=== PATIENT | male | born 1940 | race Caucasian/White ===

== ENCOUNTER 2020-04-28 13:05 | Outpatient (REF) | payer MEDICARE, SELFPAY ==
--- NOTE | 2020-04-28 13:24 | US_ITS ---
EXAMINATION: US SOFT TISSUE HEAD AND NECK CLINICAL INFORMATION: Swelling of the right side of the face. As per patient, swelling began this morning. COMPARISON: None TECHNIQUE: Real-time scanning of the area of clinical concern over the right mandibular region was performed utilizing high-resolution linear transducer. Comparison scanning of the left side was performed as well. FINDINGS: Swelling of the subcutaneous tissue over the right mandibular region is noted with increased echogenicity in the region compared to the contralateral side. No significant increased vascularity is seen. There is no evidence of focal fluid collection or discrete mass in the region. A small sonographically normal-appearing lymph node is noted in the submandibular region. IMPRESSION: Corresponding to the area of clinical concern over the right mandibular region asymmetrical subcutaneous soft tissue swelling/thickening is noted without associated focal fluid collection or increased vascularity. The finding is of unclear etiology. Recommend close clinical followup. If clinically deemed necessary further evaluation with contrast-enhanced cross-sectional imaging such as MRI and/or CT scan may be considered.
== END 2020-04-28 13:06 | disposition home or self-care (01) ==
LOC: HO.HMGCX 13:05
PROVIDERS: PCP Physician Assistant; Visit Provider Nurse Practitioner Family
DX: R22.0 Localized swelling, mass and lump, head (principal)
CPT/HCPCS: 76536

== ENCOUNTER 2020-05-19 08:16 | Outpatient (REF) | payer MEDICARE, SELFPAY ==
[2020-05-19 10:36] LABS: Glucose Urine UA NEG (NEG); Leukocyte Esterase Urine NEG (NEG); Nitrite Urine NEG (NEG); PH 6.5 (5.0-8.0); Urine Blood TRACE (NEG); Urine Ketones 15 MG/DL (NEG); Urine Protein NEG (NEG-TRACE)
[2020-05-19 10:42] LABS: Appearance Urine CLEAR; Color Urine YELLOW
[2020-05-19 10:54] LABS: Mucus Urine TRACE /LPF; RBC Urine 0-2 /HPF (0); Squamous Epithelial Cell Urine TRACE /LPF; WBC Urine 0 /HPF (0-4)
== END 2020-05-19 08:17 | disposition home or self-care (01) ==
LOC: HO.LAB 08:16
PROVIDERS: PCP Physician Assistant; Visit Provider Physician Assistant
DX: R30.0 Dysuria (principal)
CPT/HCPCS: 81001

== ENCOUNTER 2020-07-06 06:55 | Outpatient (REF) | payer MEDICARE, SELFPAY ==
[2020-07-06 07:43] LABS: Glucose Urine UA NEG (NEG); Leukocyte Esterase Urine NEG (NEG); Nitrite Urine NEG (NEG); Specific Gravity - Urine 1.015 (1.005-1.025); Urine Blood TRACE (NEG); Urine Ketones NEG (NEG); Urine Protein NEG (NEG-TRACE)
[2020-07-06 07:44] LABS: Hematocrit 37.5 % (42-52); Hemoglobin 12.6 g/dl (14.0-18.0); Mean Corpuscular HGB Conc 33.6 g/dl (31.0-36.0); Mean Corpuscular Hemoglobin 34.1 pg (27.0-33.0); Mean Corpuscular Volume 101.6 fL (80-98); Mean Platelet Volume 10.5 fL (9.4-12.4); Platelet Count 325 X10*3/uL (160-400); Red Blood Count 3.69 X10*6/uL (4.60-5.80); Red Cell Distribution Width 12.6 % (11.0-16.0); White Blood Count 5.5 X10*3/uL (4.8-10.8)
[2020-07-06 07:46] LABS: Appearance Urine CLEAR; Color Urine YELLOW
[2020-07-06 08:05] LABS: Anion Gap 13 (12-20); Blood Urea Nitrogen 10 mg/dL (9-16); Calcium 8.9 mg/dL (8.4-10.2); Carbon Dioxide 29 mmol/L (22-29); Chloride 101 mmol/L (96-108); Estimated Glomerular Filt Rate > 60; Glucose Random 76 mg/dL (60-115); Potassium 4.3 mmol/l (3.3-5.1); Sodium 139 mmol/L (135-145)
[2020-07-06 08:10] LABS: Squamous Epithelial Cell Urine TRACE /LPF
== END 2020-07-06 06:56 | disposition home or self-care (01) ==
LOC: HO.LAB 06:55
PROVIDERS: Visit Provider Physician Assistant
DX: E87.1 Hypo-osmolality and hyponatremia (principal); I10 Essential (primary) hypertension; R30.0 Dysuria
CPT/HCPCS: 36415; 80048; 81001; 85027

== ENCOUNTER 2021-01-03 06:56 | Outpatient (REF) | payer MEDICARE, SELFPAY ==
[2021-01-03 07:44] LABS: Hematocrit 33.6 % (42-52); Hemoglobin 11.1 g/dl (14.0-18.0); Immature Retic Fraction 18.7 % (2.3-13.4); Mean Corpuscular Hemoglobin 30.6 pg (27.0-33.0); Mean Corpuscular Volume 92.6 fL (80-98); Mean Platelet Volume 10.1 fL (9.4-12.4); Platelet Count 434 X10*3/uL (160-400); Red Blood Count 3.63 X10*6/uL (4.60-5.80); Red Cell Distribution Width 13.5 % (11.0-16.0); Retic HGB Equivalent 31.6 pg (30.0-35.0); Reticulocyte Percent 1.9 % (0.5-1.8); White Blood Count 4.6 X10*3/uL (4.8-10.8)
[2021-01-03 07:53] LABS: Anion Gap 12 (12-20); Blood Urea Nitrogen 10 mg/dL (9-16); Calcium 9.3 mg/dL (8.4-10.2); Carbon Dioxide 27 mmol/L (22-29); Chloride 102 mmol/L (96-108); Estimated Glomerular Filt Rate > 60; Glucose Random 87 mg/dL (60-115); Potassium 4.8 mmol/L (3.3-5.1); Sodium 136 mmol/L (135-145)
[2021-01-03 09:25] LABS: Folate 4.9 ng/mL (> or = 4.0); Vitamin B12 803 pg/mL (200-900)
[2021-01-03 09:27] LABS: Glucose Urine UA NEG (NEG); Leukocyte Esterase Urine NEG (NEG); Nitrite Urine NEG (NEG); Urine Blood NEG (NEG); Urine Ketones NEG (NEG); Urine Protein NEG (NEG-TRACE)
[2021-01-03 09:28] LABS: Appearance Urine CLEAR; Color Urine STRAW
== END 2021-01-03 06:57 | disposition home or self-care (01) ==
LOC: HO.LAB 06:56
PROVIDERS: PCP Physician Assistant; Visit Provider Physician Assistant
DX: R30.0 Dysuria (principal); D64.9 Anemia, unspecified; I10 Essential (primary) hypertension
CPT/HCPCS: 36415; 80048; 81003; 82607; 82746; 85027; 85045

== ENCOUNTER 2021-02-15 07:34 | Outpatient (REF) | payer MEDICARE, SELFPAY ==
[2021-02-15 08:04] LABS: MANUAL DIFF FLAG NO
[2021-02-15 08:11] LABS: Basophils Absolute Auto 0.1 X10*3/uL (0.0-0.2); Basophils Percent Auto 0.8 % (0-2); Eosinophils Absolute Auto 0.1 X10*3/uL (0.0-0.4); Eosinophils Percent Auto 0.8 % (0-4); Hemoglobin 8.9 g/dl (14.0-18.0); Imm Gran Abs Auto 0.03 X10*3/uL (0.00-0.03); Imm Gran Pct Auto 0.5 % (0.0-0.4); Lymphocytes Percent Auto 15.5 % (20-40); Mean Corpuscular Hemoglobin 28.4 pg (27.0-33.0); Mean Corpuscular Volume 86.3 fL (80-98); Mean Platelet Volume 9.9 fL (9.4-12.4); Monocytes Absolute Auto 0.6 X10*3/uL (0.1-1.2); Monocytes Percent Auto 8.3 % (2-11); Neutrophils Absolute Auto 4.9 X10*3/uL (2.0-8.3); Neutrophils Percent Auto 74.1 % (45-73); Platelet Count 363 X10*3/uL (160-400); Red Blood Count 3.13 X10*6/uL (4.60-5.80); Red Cell Distribution Width 14.6 % (11.0-16.0); White Blood Count 6.6 X10*3/uL (4.8-10.8)
[2021-02-15 08:40] LABS: Alanine Aminotransferase 8 U/L (0-40); Albumin Level 4.2 g/dL (3.5-5.0); Alkaline Phosphatase 65 U/L (39-117); Anion Gap 14 (12-20); Aspartate Amino Transferase 16 U/L (5-37); Bilirubin Total 0.6 mg/dL (0.0-1.0); Blood Urea Nitrogen 11 mg/dL (9-16); Calcium 9.2 mg/dL (8.4-10.2); Carbon Dioxide 23 mmol/L (22-29); Chloride 101 mmol/L (96-108); Cholesterol 171 mg/dL; Estimated Glomerular Filt Rate > 60; Glucose Fasting 87 mg/dL (60-99); HDL Cholesterol 77 mg/dL; Iron 18 mcg/dL (45-160); LDL Cholesterol Calculated 72 mg/dl; Potassium 4.2 mmol/L (3.3-5.1); Sodium 134 mmol/L (135-145); Total Protein 6.8 g/dL (6.5-8.0); Triglycerides 113 mg/dL
[2021-02-15 08:58] LABS: Percent Iron Saturation 4 % (15-50); Total Iron Binding Capacity 441 mcg/dL (228-428); Unsaturated Iron Binding 423 ug/dL
[2021-02-15 09:02] LABS: TSH reflex Free T4 1.88 uIU/mL (0.32-4.0); Vitamin D 25-OH Total 8.9 ng/mL (>30)
[2021-02-15 09:22] LABS: Creatinine Urine 35.71 mg/dL; Microalbumin Urine < 5.0 mg/L
[2021-02-15 09:24] LABS: Folate 10.5 ng/mL (> or = 4.0); Vitamin B12 1935 pg/mL (200-900)
== END 2021-02-15 07:35 | disposition home or self-care (01) ==
LOC: HO.LAB 07:34
PROVIDERS: PCP Physician Assistant; Visit Provider Nurse Practitioner Family
DX: I10 Essential (primary) hypertension (principal); D50.9 Iron deficiency anemia, unspecified
CPT/HCPCS: 36415; 80053; 80061; 82043; 82306; 82607; 82746; 83540; 84443; 85025

== ENCOUNTER 2021-03-02 06:35 | Outpatient (REF) | payer MEDICARE, SELFPAY ==
[2021-03-02 07:06] LABS: MANUAL DIFF FLAG NO
[2021-03-02 07:15] LABS: Basophils Percent Auto 0.7 % (0-2); Eosinophils Absolute Auto 0.1 X10*3/uL (0.0-0.4); Eosinophils Percent Auto 1.5 % (0-4); Hematocrit 24.7 % (42-52); Imm Gran Abs Auto 0.04 X10*3/uL (0.00-0.03); Imm Gran Pct Auto 0.7 % (0.0-0.4); Lymphocytes Absolute Auto 1.5 X10*3/uL (1.2-4.9); Lymphocytes Percent Auto 25.2 % (20-40); Mean Corpuscular HGB Conc 32.4 g/dl (31.0-36.0); Mean Corpuscular Hemoglobin 27.9 pg (27.0-33.0); Mean Corpuscular Volume 86.1 fL (80-98); Mean Platelet Volume 9.4 fL (9.4-12.4); Monocytes Absolute Auto 0.6 X10*3/uL (0.1-1.2); Monocytes Percent Auto 10.6 % (2-11); Neutrophils Absolute Auto 3.6 X10*3/uL (2.0-8.3); Neutrophils Percent Auto 61.3 % (45-73); Platelet Count 530 X10*3/uL (160-400); Red Blood Count 2.87 X10*6/uL (4.60-5.80); Red Cell Distribution Width 15.5 % (11.0-16.0); White Blood Count 5.9 X10*3/uL (4.8-10.8)
== END 2021-03-02 06:36 | disposition home or self-care (01) ==
LOC: HO.LAB 06:35
PROVIDERS: PCP Physician Assistant; Visit Provider Nurse Practitioner Family
DX: D64.9 Anemia, unspecified (principal)
CPT/HCPCS: 36415; 85025

== ENCOUNTER → 2021-03-03 10:47 | Outpatient (BNV) | payer MEDICARE, SELFPAY | PROVIDERS: PCP Physician Assistant; Referring Provider Nurse Practitioner Family; Visit Provider Internal Medicine | DX: C64.9 Malignant neoplasm of unspecified kidney, except renal pelvis (principal) | CPT/HCPCS: 99203; 99213; 99214; G2211 ==

== ENCOUNTER 2021-03-23 06:48 | Outpatient (REF) | payer MEDICARE, SELFPAY ==
[2021-03-23 07:18] LABS: Hematocrit 30.7 % (42-52); Hemoglobin 9.9 g/dl (14.0-18.0); Mean Corpuscular HGB Conc 32.2 g/dl (31.0-36.0); Mean Corpuscular Hemoglobin 30.2 pg (27.0-33.0); Mean Corpuscular Volume 93.6 fL (80-98); Mean Platelet Volume 9.6 fL (9.4-12.4); Platelet Count 348 X10*3/uL (160-400); Red Blood Count 3.28 X10*6/uL (4.60-5.80); Red Cell Distribution Width 22.4 % (11.0-16.0); White Blood Count 4.5 X10*3/uL (4.8-10.8)
[2021-03-23 07:45] LABS: Hemoglobin A1c % < 4.0 %
[2021-03-23 07:48] LABS: Anion Gap 18 (12-20); Blood Urea Nitrogen 8 mg/dL (9-16); Calcium 9.6 mg/dL (8.4-10.2); Carbon Dioxide 24 mmol/L (22-29); Chloride 100 mmol/L (96-108); Estimated Glomerular Filt Rate > 60; Glucose Random 85 mg/dL (60-115); Iron 37 mcg/dL (45-160); Percent Iron Saturation 9 % (15-50); Potassium 4.7 mmol/L (3.3-5.1); Sodium 137 mmol/L (135-145); Total Iron Binding Capacity 397 mcg/dL (228-428); Unsaturated Iron Binding 360 ug/dL
[2021-03-23 08:15] LABS: Prostate Specific Antigen Scr 1.87 ng/mL (<0.05-4.0)
== END 2021-03-23 06:49 | disposition home or self-care (01) ==
LOC: HO.LAB 06:48
PROVIDERS: PCP Physician Assistant; Visit Provider Physician Assistant
DX: Z12.5 Encounter for screening for malignant neoplasm of prostate (principal); Z13.1 Encounter for screening for diabetes mellitus; D50.0 Iron deficiency anemia secondary to blood loss (chronic); I10 Essential (primary) hypertension
CPT/HCPCS: 36415; 80048; 83036; 83540; 84153; 85027

== ENCOUNTER 2021-04-12 07:46 | Day surgery (SDC) | payer MEDICARE, SELFPAY ==
[2021-04-07 11:09] VITALS: BMI 18.4
--- NOTE | 2021-04-11 08:15 | HO.ANESPROP2 ---
Documented by User: Elisha Castillo NP 04/11/21 08:17 HPI - Anesthesia Eval Consult details Narrative: 80yo M for Upper Endoscopy and Colonoscopy [facility] Active Problems Active Problems: All Active Problems (Updated 04/07/21 @ 10:56 by Jenna Maurice RN) Scrotal itching (Acute) Facial swelling (Acute) Swelling of mandible (Acute) Tinea pedis, recurrent (Acute) Tinea corporis (Acute) Balanitis (Acute) Dysuria (Acute) HTN (hypertension) (Acute) Hyponatremia (Acute) Constipation (Acute) Erectile dysfunction (Acute) Anemia (Acute) Rectal bleeding (Acute) Fatigue (Acute) Low vitamin D level (Acute) Melena (Acute) Screening for diabetes mellitus (DM) (Acute) Nocturia (Acute) Past Medical History Medical History (Updated 04/07/21 @ 10:56 by Jenna Maurice RN) Anemia HTN (hypertension) Hyperlipidemia Family History Family History Father No problems noted. Mother No problems noted. Brother Cardiovascular disease Diabetes Surgical History Surgical History (Updated 04/07/21 @ 11:00 by Jenna Maurice RN) H/O colonoscopy History of left inguinal hernia repair (~02/2018) Hx of eye surgery Social History Social History Housing: House Alcohol intake: current Alcohol intake frequency: a few times a week Patient Tobacco Use Status: Never used Tobacco e-Cigarette/Vaping Use: Never Used Second Hand Smoke Exposure: No Use of substances other than those prescribed or required for medical reasons: No Have you been hit, kicked, punched, or otherwise hurt by someone within the past year? If so, by whom?: No Are you DNR?: No Advance Directives: Yes Advance Directives Information Provided: Yes (as above noted) Advance Directives on File: Yes Advance Directives Date on File: 04/12/21 Recently lost weight without trying: No Eating poorly because of decreased appetite: No Nutrition Risks: No Nutritional Risk service: No Current occupational status: retired Meds Allergies Allergy/AdvReac Type Severity Reaction Status Date / Time hydrochlorothiazide AdvReac Dizziness/ Verified 03/14/21 09:31 hyponatremia lisinopril AdvReac Lip Verified 03/14/21 09:31 swelling. Exam Exam Date and Time: April 11, 2021 0815 Height,Weight and Vital Signs: Height 5 ft 6.5 in Weight 52.617 kg Pertinent Lab Results Pertinent Lab Results: Laboratory Tests 03/23/21 03/23/21 06:55 06:55 WBC 4.5 L Hgb 9.9 L D Hct 30.7 L D Plt Count 348 D Sodium 137 Potassium 4.7 Chloride 100 Carbon Dioxide 24 BUN 8 L Creatinine 0.85 Assessment and Plan Assessment Anesthesia Assessment: Chart Reviewed Documented by User: Thaddeus Almaraz MD 04/12/21 08:24 [facility] Past Medical History Medical History (Updated 04/07/21 @ 10:56 by Jenna Maurice RN) Anemia HTN (hypertension) Hyperlipidemia Family History Family History Father No problems noted. Mother No problems noted. Brother Cardiovascular disease Diabetes Family history of problems with anesthesia: No Surgical History Surgical History (Updated 04/07/21 @ 11:00 by Jenna Maurice RN) H/O colonoscopy History of left inguinal hernia repair (~02/2018) Hx of eye surgery History of Problems with Anesthesia: No Social History Social History Housing: House Alcohol intake: current Alcohol intake frequency: a few times a week Patient Tobacco Use Status: Never used Tobacco e-Cigarette/Vaping Use: Never Used Second Hand Smoke Exposure: No Use of substances other than those prescribed or required for medical reasons: No Have you been hit, kicked, punched, or otherwise hurt by someone within the past year? If so, by whom?: No Are you DNR?: No Advance Directives: Yes Advance Directives Information Provided: Yes (as above noted) Advance Directives on File: Yes Advance Directives Date on File: 04/12/21 Recently lost weight without trying: No Eating poorly because of decreased appetite: No Nutrition Risks: No Nutritional Risk service: No Current occupational status: retired Meds Allergies Allergy/AdvReac Type Severity Reaction Status Date / Time hydrochlorothiazide AdvReac Dizziness/ Verified 03/14/21 09:31 hyponatremia lisinopril AdvReac Lip Verified 03/14/21 09:31 swelling. Exam Airway Mallampati Class: II TM Dist: >3cm Neck ROM: Full Loose/Missing/Broken Teeth: No Heart: [id number] Lungs: cta b/l Assessment and Plan Assessment Anesthesia Assessment: Anesthesia Plan Discussed Final Anesthetic Review Family History of Problems with Anesthesia: No History of Problems with Anesthesia: No NPO: Yes ASA Class: III Final Preanesthetic Review: No Changes in Pt Med Stat, Meds/Allgs Chart Reviewed, Consent Obtained/Reviewed and Anes Risks/Benef Reviewed Patient Risk: Intermediate Procedure Risk: Low Assessment/Block/Sedation in SS: Assess/Block/Sedation-SS Anesthetic Plan Anesthetic Plan: MAC: and Agree w/ Assess. and Plan Disposition: Standard PACU
[2021-04-12 08:07] VITALS: BP 163/83; PULSE 82; RESP 16; TEMP 36.4; O2SAT 100
[2021-04-12] MEDS: Lactated Ringers 1,000 ML 100 ML IVCONT (08:23)
--- NOTE | 2021-04-12 08:50 | MHC.SHP ---
Pre-Procedural Eval Section A Date of Service: 04/12/21 The patient is an INPATIENT: No Changes since office visit: No Cold of Flu in the past 2 weeks, No New Medical Problems, No Changes in Medication and No Patient answered all questions The History & Physical has been completed within 30 days and I have reviewed it.: Yes Section B Chief Complaint: anemia Allergies: Allergies Allergy/AdvReac Type Severity Reaction Status Date / Time hydrochlorothiazide AdvReac Dizziness/ Verified 03/14/21 09:31 hyponatremia lisinopril AdvReac Lip Verified 03/14/21 09:31 swelling. Plan I have reviewed the history and physical and performed a pertinent physical examination on my patient. No changes have occurred unless specified.
[2021-04-12 09:41] VITALS: BP 105/67; PULSE 92; RESP 16; TEMP 36.1; O2SAT 99
--- NOTE | 2021-04-12 09:46 | PM.OP ---
Brief Operative Note Date of Service: 04/12/21 Pre-op diagnosis: fe def anemia, rectal bleeding Post-op diagnosis: same (gastritis, duodenitis, cecal mass, diverticulosis) Procedure: egd,colon Surgeon: Husam Kong Anesthesia: MAC Was an Pig Machine Crane Operator used for this Procedure?: No Estimated blood loss (mL): 10 Pathology: other (bxs duodenum, antrum, egj, cecal mass) Condition: stable Disposition: PACU
[2021-04-12 09:56] VITALS: BP 115/70; PULSE 89; RESP 17; TEMP 36.1; O2SAT 100
--- NOTE | 2021-04-12 09:57 | OP_ITS ---
SURGEON: Husam Kong MD INDICATIONS: Iron-deficiency anemia and rectal bleeding. PREOPERATIVE DIAGNOSIS: POSTOPERATIVE DIAGNOSIS: PROCEDURE PERFORMED: 1. Upper endoscopy with biopsy. 2. Colonoscopy to the terminal ileum with biopsy and Natasha ink marking. ESTIMATED BLOOD LOSS: COMPLICATIONS: ANESTHESIA: ASSISTANTS: SPECIMENS: MEDICATIONS: Monitored anesthesia care. DESCRIPTION OF PROCEDURE: History and physical performed. The risks and benefits of the procedure were explained to the patient. Informed consent was obtained. The patient was placed in the left lateral decubitus position. The Olympus video gastroscope was introduced into the esophagus, stomach, and duodenum. Examination was performed and the scope was removed. He was repositioned for colonoscopy. Digital rectal exam was performed and did show anal stenosis. The Olympus pediatric video colonoscope was introduced into the rectum and advanced to the cecum without difficulty. The cecum was identified by transillumination, palpation, and identification of ileocecal valve. Examination was performed and the scope was removed. He tolerated the procedure well and was taken to recovery area in stable condition. FINDINGS: UPPER ENDOSCOPY: Esophagus: The esophagus showed some mild esophagitis right at the EG junction. Biopsies were obtained from the EG junction. Stomach: Stomach showed no evidence of masses, ulcers, or polyps. Antral biopsies were obtained as there did appear to be some mild gastritis involving the antrum. Duodenum: The bulb and second portion showed some slight flattening of the folds in the second portion of the duodenum. Biopsies were obtained to rule out celiac disease. COLONOSCOPY: The terminal ileum was normal. There was a mass at the cecum arising from the underside of the ileocecal valve. The mass measured approximately 4 x 6 cm and was ulcerated and friable; it had a hard feeling when biopsied. The mass appeared consistent with a carcinoma. Biopsies were obtained from the mass and a total of 4 mL of Natasha ink was injected in the vicinity of the mass for aiding in identification at the time of surgery. A single polyp near the mass measured approximately 6 mm and was not removed at the time of the procedure. There was moderate diverticulosis involving the sigmoid. Retroflexed examination showed internal hemorrhoids. IMPRESSION: 1. Gastritis. 2. Esophagitis. 3. Cecal mass. 4. Diverticulosis. RECOMMENDATIONS: 1. Follow up the biopsy results. 2. Referral for surgical evaluation. MD ЕЛЕНА Zamudio/JIAN / [id number] MTDD
== END 2021-04-12 10:54 | disposition home or self-care (01) ==
PROVIDERS: PCP Physician Assistant; Visit Provider Internal Medicine Gastroenterology
PROC: (CPT 45380; principal; 2021-04-12 09:00)
DX: D50.9 Iron deficiency anemia, unspecified (principal); K62.5 Hemorrhage of anus and rectum; C18.0 Malignant neoplasm of cecum; K57.30 Diverticulosis of large intestine without perforation or abscess without bleeding; K20.90 Esophagitis, unspecified without bleeding; K29.70 Gastritis, unspecified, without bleeding; I10 Essential (primary) hypertension; Z79.899 Other long term (current) drug therapy
CPT/HCPCS: 45380; 43239; 88305; 88341; 88342; J3010

== ENCOUNTER → 2021-04-15 14:11 | Outpatient (BNVA) | payer MEDICARE, SELFPAY | PROVIDERS: PCP Physician Assistant; Referring Provider Physician Assistant; Visit Provider Surgery | DX: K63.89 Other specified diseases of intestine (principal) | CPT/HCPCS: 99202 ==

== ENCOUNTER 2021-04-18 12:17 | Outpatient (REF) | payer MEDICARE, SELFPAY ==
[2021-04-18 14:16] LABS: Hematocrit 35.7 % (42-52); Hemoglobin 11.7 g/dl (14.0-18.0); Mean Corpuscular HGB Conc 32.8 g/dl (31.0-36.0); Mean Corpuscular Hemoglobin 31.5 pg (27.0-33.0); Platelet Count 392 X10*3/uL (160-400); Red Blood Count 3.72 X10*6/uL (4.60-5.80); Red Cell Distribution Width 19.6 % (11.0-16.0); White Blood Count 7.8 X10*3/uL (4.8-10.8)
[2021-04-18 14:37] LABS: Alanine Aminotransferase 17 U/L (0-40); Albumin Level 4.1 g/dL (3.5-5.0); Alkaline Phosphatase 69 U/L (39-117); Aspartate Amino Transferase 24 U/L (5-37); Blood Urea Nitrogen 11 mg/dL (9-16); Estimated Glomerular Filt Rate > 60; Total Protein 6.9 g/dL (6.5-8.0)
[2021-04-18 15:06] LABS: Bilirubin Direct < 0.2 mg/dL (0.0-0.5); Bilirubin Total < 0.2 mg/dL (0.0-1.0)
== END 2021-04-18 12:18 | disposition home or self-care (01) ==
LOC: HO.10HDL 12:17
PROVIDERS: Visit Provider Internal Medicine Gastroenterology
DX: R22.0 Localized swelling, mass and lump, head (principal)
CPT/HCPCS: 36415; 80076; 82378; 82565; 84520; 85027

== ENCOUNTER 2021-04-22 08:41 | Outpatient (REF) | payer MEDICARE, SELFPAY ==
--- NOTE | ~2021-04-22 | CT_ITS ---
EXAMINATION: CT CHEST WITH CONTRAST CLINICAL INFORMATION: Cecal mass. COMPARISON: Previous chest x-ray most recent July 2019. TECHNIQUE: Multidetector volumetric CT imaging of the chest was obtained after the administration of 85 mL of Omnipaque 350 intravenous contrast without immediate adverse reactions. Axial MIP volume rendering provided. Sagittal and coronal reformatted images were obtained. This CT examination was performed using dose optimization techniques as appropriate, variously including the following: *Automated exposure control *Adjustment of mA and/or kV according to patient size (this includes techniques or standardized protocols for targeted exams where dose is matched to indication/reason for exam; i.e. extremities or head) *Use of iterative reconstruction technique DLP: 119 mGy-cm. FINDINGS: LUNGS: There is biapical pleural thickening and calcification. There is a 4 mm peripheral or subpleural superior segment right lower lobe nodule axial image 219 series 7. There are additional smaller peripheral or subpleural nodules adjacent to the right lower lobe. These probably represent small subpleural lymph nodes. There is a 2 mm left upper lobe peripheral nodule axial image 137 series 7. There is a 2 mm central left upper lobe nodule axial image 220 series 7. There is a slight nodularity along the pleural fissures, particularly the left pleural fissure for example axial image 208 series 7. MEDIASTINUM: The heart does not appear enlarged. There is coronary artery calcification. There is no pericardial effusion. The thoracic aorta is upper normal in size. There are no enlarged hilar or mediastinal lymph nodes. The visualized thyroid gland is unremarkable. PLEURA: There is no pleural effusion. No pleural mass or thickening. AXILLA: No lymphadenopathy. OSSEOUS STRUCTURES: There are degenerative changes of the spine. CT/CT chest w con IMPRESSION: Small pulmonary nodules, the majority probably representing subpleural lymph nodes. Coronary artery calcification. Upper normal-size thoracic aorta.
--- NOTE | ~2021-04-22 | CT_ITS ---
EXAMINATION: CT ABDOMEN AND PELVIS WITH CONTRAST CLINICAL INFORMATION: Cecal mass. COMPARISON: CTA of the abdomen and pelvis August 2011 TECHNIQUE: Multidetector volumetric images were obtained from the superior aspect of the liver through the pubic symphysis following administration 85 mL of Omnipaque 350 intravenous contrast. Sagittal and coronal reformatted images were obtained on the technologist's workstation. Oral contrast: Yes. This CT examination was performed using dose optimization techniques as appropriate, variously including the following: *Automated exposure control *Adjustment of mA and/or kV according to patient size (this includes techniques or standardized protocols for targeted exams where dose is matched to indication/reason for exam; i.e. extremities or head) *Use of iterative reconstruction technique DLP: 223 mGy-cm FINDINGS: LIVER, GALLBLADDER, AND BILIARY TREE: The liver is low in attenuation suggestive of fatty infiltration. No focal liver lesion is seen. The gallbladder is unremarkable with no evidence of radiopaque gallstones, gallbladder wall thickening, or obvious pericholecystic inflammatory changes. There is no biliary duct dilatation. PANCREAS: Unremarkable. SPLEEN: Unremarkable. ADRENAL GLANDS: Unremarkable. KIDNEYS AND URETERS: There are bilateral low-attenuation renal lesions consistent with simple cysts. The largest measure 1.8 cm in the lower pole of the right kidney and 1.3 cm in the peripelvic mid left kidney and lower pole. Kidneys are otherwise unremarkable. BLADDER: Unremarkable. GASTROINTESTINAL TRACT: There is a 4.6 x 3 x 5 cm soft tissue mass in the cecum suggestive of neoplasm. There are small surrounding pericolic lymph nodes. The largest measures 6 mm posterior to the cecum. There is no evidence of obstruction. The appendix is normal. There is diverticulosis of the colon. The stomach is not optimally distended. ABDOMINAL WALL: No significant hernia is appreciated. LYMPH NODES: There are no enlarged lymph nodes. There are small pericolic lymph nodes adjacent to the cecum, largest measuring 6 mm posterior to the cecum. There is no ascites. There is no evidence of peritoneal disease. VASCULAR: There is evidence of atherosclerotic disease. No aneurysm is seen. PELVIC VISCERA: The prostate gland is enlarged and protrudes into the base of the bladder. OSSEOUS STRUCTURES: There are degenerative changes of the spine. No fracture or suspicious bone lesion is seen. CT/CT abdomen pelvis w con IMPRESSION: Cecal mass suggestive of neoplasm. Small pericolic lymph nodes, largest measuring 6 mm posterior to the cecum. Diverticulosis of the colon. Fatty liver. Bilateral renal cysts. Enlarged prostate gland.
== END 2021-04-22 08:42 | disposition home or self-care (01) ==
LOC: HO.CT 08:41
PROVIDERS: Absent Provider Internal Medicine Gastroenterology; PCP Physician Assistant; Visit Provider Surgery
DX: K63.89 Other specified diseases of intestine (principal); R91.8 Other nonspecific abnormal finding of lung field
CPT/HCPCS: 71260; 74177; Q9967

== ENCOUNTER 2021-05-24 09:26 | Inpatient (IN) | payer MEDICARE, SELFPAY ==
[2021-05-16 11:32] VITALS: BP 170/86; PULSE 90; RESP 16
--- NOTE | 2021-05-16 12:13 | P.CONAN_ITS ---
Documented by User: Elisha Castillo NP 05/23/21 12:26 HPI - Anesthesia Eval Consult details Narrative: 80yo M for Right Hand Assisted Laparoscopic Colon Resection, Poss open Blood refusal d/t orthodox. (H&H low 04/18/21. Repeat preop to ensure stable.) s/p EGD and Rowe with MAC 04/12/21 0-2 Iain daily BP up at PAT. Pt with detailed home BP log all WNL and at surgical OV. Pt will continue to monitor at home and call if elevated. PMFSH Active Problems Active Problems: All Active Problems (Updated 05/16/21 @ 12:11 by Echo Neville, XANDER) Scrotal itching (Acute) Facial swelling (Acute) Swelling of mandible (Acute) Tinea pedis, recurrent (Acute) Tinea corporis (Acute) Balanitis (Acute) Dysuria (Acute) HTN (hypertension) (Acute) Hyponatremia (Acute) Constipation (Acute) Erectile dysfunction (Acute) Anemia (Acute) Rectal bleeding (Acute) Fatigue (Acute) Low vitamin D level (Acute) Melena (Acute) Screening for diabetes mellitus (DM) (Acute) Nocturia (Acute) Cecum mass (Acute) Anemia (Acute) External hemorrhoid (Acute) Past Medical History Medical History (Updated 05/16/21 @ 12:11 by Echo Neville RN) Anemia HTN (hypertension) Hyperlipidemia Family History Family History Father No problems noted. Mother No problems noted. Brother Cardiovascular disease Diabetes Family history of problems with anesthesia: No Surgical History Surgical History (Updated 05/16/21 @ 09:19 by Echo Neville RN) H/O colonoscopy History of left inguinal hernia repair (~02/2018) Hx of eye surgery History of Problems with Anesthesia: No Social History Social History (Updated 05/16/21 @ 09:21 by Echo Neville RN) Housing: House Are you a primary children's zoo caretaker to a significant other at home: No Do you presently have visiting nurse or other home services: No Alcohol intake: current Alcohol intake frequency: 0-2 drinks per day Alcohol type: wine Patient Tobacco Use Status: Never used Tobacco e-Cigarette/Vaping Use: Never Used Second Hand Smoke Exposure: No Use of substances other than those prescribed or required for medical reasons: No Advance Directives Date on File: 04/12/21 service: No Current occupational status: retired Meds Allergies Allergy/AdvReac Type Severity Reaction Status Date / Time hydrochlorothiazide AdvReac Severe Dizziness/ Verified 05/16/21 09:19 hyponatremia lisinopril AdvReac Severe Lip Verified 05/16/21 09:19 swelling. Exam Exam Date and Time: May 16, 2021 1213 Height,Weight and Vital Signs: Last Vital Signs Pulse 90 05/16/21 11:32 Resp 16 05/16/21 11:32 BP 170/86 H 05/16/21 11:32 Pertinent Lab Results Pertinent Lab Results: Laboratory Tests 03/23/21 04/18/21 04/18/21 06:55 12:20 12:20 WBC 7.8 Hgb 11.7 L Hct 35.7 L Plt Count 392 Sodium 137 Potassium 4.7 Chloride 100 Carbon Dioxide 24 BUN 11 Creatinine 0.80 Narrative Narrative: EKG 02/2021 NSR @ 90 Normal EKG ECHO 11/2017 LV systolic function is normal. EF 55-60%. No RWMA Grade 1 DD Mild calc of AV Mild MAC No obvious valvular pathology Airway Mallampati Class: I TM Dist: >3cm Neck ROM: Full Loose/Missing/Broken Teeth: Yes (Right lower broken. 1x pulled. Right lower implant.) Heart: RRR Lungs: CTAB Assessment and Plan Assessment Anesthesia Assessment: Anesthesia Plan Discussed and PAT Visit Final Anesthetic Review Family History of Problems with Anesthesia: No History of Problems with Anesthesia: No Documented by User: Mel Metzger MD 05/24/21 07:41 [facility] Past Medical History Medical History (Updated 05/16/21 @ 12:11 by Echo Neville RN) Anemia HTN (hypertension) Hyperlipidemia Family History Family History Father No problems noted. Mother No problems noted. Brother Cardiovascular disease Diabetes Surgical History Surgical History (Updated 05/16/21 @ 09:19 by Echo Neville, RN) H/O colonoscopy History of left inguinal hernia repair (~02/2018) Hx of eye surgery Social History Social History (Updated 05/16/21 @ 09:21 by Echo Neville, RN) Housing: House Are you a primary children's zoo caretaker to a significant other at home: No Do you presently have visiting nurse or other home services: No Alcohol intake: current Alcohol intake frequency: 0-2 drinks per day Alcohol type: wine Patient Tobacco Use Status: Never used Tobacco e-Cigarette/Vaping Use: Never Used Second Hand Smoke Exposure: No Use of substances other than those prescribed or required for medical reasons: No Advance Directives Date on File: 04/12/21 service: No Current occupational status: retired Meds Allergies Allergy/AdvReac Type Severity Reaction Status Date / Time hydrochlorothiazide AdvReac Severe Dizziness/ Verified 05/16/21 09:19 hyponatremia lisinopril AdvReac Severe Lip Verified 05/16/21 09:19 swelling. Exam Height,Weight and Vital Signs: Last Vital Signs Pulse 90 05/16/21 11:32 Resp 16 05/16/21 11:32 BP 170/86 H 05/16/21 11:32 Height 5 ft 6.5 in Weight 56.983 kg Vital Signs Temp Pulse Resp BP Pulse Ox 05/24/21 06:28 97.2 F 96 16 158/80 H 100 Pertinent Lab Results Pertinent Lab Results: Laboratory Tests 03/23/21 04/18/21 04/18/21 06:55 12:20 12:20 WBC 7.8 Hgb 11.7 L Hct 35.7 L Plt Count 392 Sodium 137 Potassium 4.7 Chloride 100 Carbon Dioxide 24 BUN 11 Creatinine 0.80 Lab Results 05/24/21 05/24/21 Range/Units 06:19 06:26 WBC 6.4 (4.8-10.8) X10*3/uL RBC 3.95 L (4.60-5.80) X10*6/uL Hgb 13.0 L (14.0-18.0) g/dl Hct 39.4 L (42.0-52.0) % MCV 99.7 H (80.0-98.0) fL MCH 32.9 (27.0-33.0) pg MCHC 33.0 (31.0-36.0) g/dl RDW 16.7 H (11.0-16.0) % Plt Count 333 (160-400) X10*3/uL MPV 9.8 (9.4-12.4) fL Absolute Nucleated RBC 0.000 (0.0-0.012) X10*3/uL Nucleated RBC % (auto) 0.0 (0.0-0.2) /100WBC COVID-19 (RADHA) Negative (Negative) COVID-19 Clin Com See Note Airway Mallampati Class: II Assessment and Plan Assessment Anesthesia Assessment: Chart Reviewed Final Anesthetic Review NPO: Yes ASA Class: II Final Preanesthetic Review: No Changes in Pt Med Stat, Meds/Allgs Chart Reviewed, Consent Obtained/Reviewed and Anes Risks/Benef Reviewed Patient Risk: Low Procedure Risk: Intermediate Assessment/Block/Sedation in SS: Assess/Block/Sedation-SS Anesthetic Plan Anesthetic Plan: GA Disposition: Standard PACU and Inp. Admit - Standard Bed
[2021-05-24] VITALS (20 sets, daily range): BP systolic 129–163; BP diastolic 65–88; PULSE 81–114; RESP 16–20; TEMP 35.9–36.9; O2SAT 96–100
--- NOTE | ~2021-05-24 | XR_ITS ---
EXAMINATION: XR CHEST CLINICAL INFORMATION: Fever COMPARISON: Previous chest CT April 2021 and chest x-ray July 2016 TECHNIQUE: 2 views of the chest were obtained. FINDINGS: The cardiac and mediastinal contours are stable. The lungs are clear. There is biapical pleural calcification. There are small bilateral pleural effusions. There is no pneumothorax. There are degenerative changes of the spine. XR/XR chest 2V IMPRESSION: Small bilateral pleural effusions. No evidence of pneumonia.
--- NOTE | ~2021-05-24 | XR_ITS ---
EXAMINATION: XR ABDOMEN KUB CLINICAL INDICATION: Postop ileus COMPARISON: None TECHNIQUE: Upright KUB FINDINGS: There are skin jovanni seen in the lower abdomen and pelvis. There are dilated loops of small bowel with air-fluid levels. Differential would include small bowel obstruction and ileus. No free air is seen. No calcifications are seen. Bony structures are unremarkable. XR/XR KUB IMPRESSION: Dilated small bowel with air-fluid levels. Differential would include small bowel obstruction and postoperative ileus.
[2021-05-24 06:39] LABS: Hematocrit 39.4 % (42.0-52.0); Mean Corpuscular Hemoglobin 32.9 pg (27.0-33.0); Mean Corpuscular Volume 99.7 fL (80.0-98.0); Mean Platelet Volume 9.8 fL (9.4-12.4); Platelet Count 333 X10*3/uL (160-400); Red Blood Count 3.95 X10*6/uL (4.60-5.80); Red Cell Distribution Width 16.7 % (11.0-16.0); White Blood Count 6.4 X10*3/uL (4.8-10.8)
[2021-05-24] MEDS: Lactated Ringers 1,000 ML 100 ML IVCONT (06:59)
[2021-05-24 07:00] LABS: COVID-19 Test Negative (Negative)
--- NOTE | 2021-05-24 07:19 | MHC.SHP ---
Pre-Procedural Eval Section A Date of Service: 05/24/21 Section B Chief Complaint: Cecum Mass Allergies: Allergies Allergy/AdvReac Type Severity Reaction Status Date / Time hydrochlorothiazide AdvReac Severe Dizziness/ Verified 05/16/21 09:19 hyponatremia lisinopril AdvReac Severe Lip Verified 05/16/21 09:19 swelling. Plan I have reviewed the history and physical and performed a pertinent physical examination on my patient. No changes have occurred unless specified.
--- NOTE | 2021-05-24 09:18 | P.OP_ITS ---
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 I scheduled him therefore for right colon resection. He understood the technique of hand assisted laparoscopic right colon resection. He was aware of the risks, benefits, and alternatives. He was brought to the operating room placed supine on the table under general anesthesia via endotracheal tube. A Bourne catheter was inserted. The abdomen is prepped and draped in usual sterile fashion. A surgical time-out was done. The patient received Cefotan 2 g IV preoperatively I made a short incision in the midline at the level of the umbilicus using blade 15. And this carried down through the full-thickness skin subcutaneous fat down to the fascia. The fascia was incised. The peritoneum was entered. Through this incision, an Henry wound retractor was position. We attached the GelPort to the wound retractor. We insufflated through a port through the GelPort to a pressure of 15 mm hg. A 30 degree 10 mm scope was placed through this port and with laparoscopic visualization, inserted a 5/12 mm port in the epigastric area below the costal margin. Another port was placed on the left upper quadrant through a small stab incision as well. I removed the port from the GelPort and placed the camera on the epigastric port. With laparoscopic visualization, I inserted my hand through the GelPort. The patient is placed in a [id number] position. I retracted the small bowel loops away from the right side and by doing so was able to clearly visualize the cecum which was also tattooed from the previous colonoscopy. I could feel the mass in the cecum. I follow the cecum distally to the flexure and the proximal transverse colon and I could see this clearly. I retracted the cecum in the right colon away from the retroperitoneum to expose the retroperitoneal attachments along the white line of Toldt. I divided this starting from the cecum using the LigaSure, going distally. We proceeded to then divide the hepatic colic ligaments at the hepatic flexure using the LigaSure as well. I continued to dissect this hepatic flexure off of the attachments to the liver using the LigaSure. I also detached the omentum from the proximal transverse colon using the LigaSure. I continued to then gently dissect the thin attachments on the retroperitoneum of the mesentery until was able to visualize the duodenum. This was therefore the limit of our medial dissection. I made sure that this duodenum was protected during the rest of the dissection of the mesentery of the right colon. I also freed up the ligamentous attachments along the cecum the using the LigaSure to make sure that we had adequate mobilization of the terminal ileum and the cecum. Once I felt that we had adequate mobilization of the entire right colon to the proximal transverse, I proceeded to then desufflate. I removed my hand from the GelPort and pulled up the entire right colon starting from the distal ileum all the way to the mid part of the transverse colon through the incision. I chose my point of dissection in the distal ileum at about 12 cm from the ileocecal valve. I created a mesenteric defect through this and divided this with a VIAJYA 60 mm stapler. I also chose my point of dissection in the proximal transverse colon and created a mesenteric window through this. I divided this using a VIJAYA 60 mm stapler as well. I identified the ileocolic pedicle. I marked the proximal part of the pedicle to create a high ligation of this with our mesenteric transection. I then proceeded to divide the mesenteric attachments of the terminal ileum using the LigaSure towards the marked area of the ileocolic pedicle. I alternated this with division of the mesentery attachments of the colon as well. I divided all the mesenteric attachments from both proximal distal until only the ileocolic pedicle was left. I defined the ileocolicpedicle by gently dissecting this with electrocautery. I then proceeded to apply and clamp across the ileocolic pedicle in a high ligation fashion. I divided this between clamps. The right colon specimen was sent for pathology I doubly ligated the stump of the ileocolic pedicle. I then proceeded to align the proximal distal stumps for a [id number] anastomosis. I noticed that there was 1 lymph node right near the staple line of the colon so I proceeded to transect more of the colon to include this lymph node and this was sent as an additional margin. I then proceeded to divide the apex of each staple line to enter the lumen. I positioned each arm of the VIJAYA 60 mm stapler through each lumen and aligned this at the anti mesenteric border. I made sure that there was no bowel loop or any mesentery within the staple line. Once this was confirmed, I fired the stapler to create our [id number] anastomosis. I completed the anastomosis by closing the enterotomy with a TA 60 mm stapler I then applied a seromuscular 3-0 Dexon stitch at the crotch of the staple line to release tension from the staple line itself I was able to palpate the lumen of the anastomosis and this was widely patent. I examined all staple lines and these appeared to be intact without any suggestion of any leak The limbs at the staple line both appeared to be well vascularized and not ischemic I replaced this back into the peritoneal cavity. I positioned the omentum to overlie the anastomotic site. I then we insufflated and applied the GelPort again. I examined la paroscopically through the epigastric port. I observed all 4 quadrants. There was no evidence of any other pathology nor any bowel injury. There was good hemostasis on the area of dissection. Once hemostasis was ensured, I proceeded to then close the fascia with a running Maxon 1 stitch. Once this was done, I proceeded then we examined the fascial closure laparoscopically from within the peritoneum and this appeared intact without any attach bowel loops or omentum I then proceeded to desufflate the remaining port sites and removed all ports. I irrigated the subcutaneous layer of all incisions. I closed the skin on all incisions with skin jovanni All skin incisions were also infiltrated with Marcaine 0.5% for postop analgesia. Dressings were applied and the procedure was completed The patient tolerated procedure well. There were no complication noted. Initial and final.counts of sponges and instruments were correct. Estimated blood loss was about 20 cc The patient is extubated without difficulty and transferred to the recovery room with stable vital signs.
--- NOTE | 2021-05-24 09:33 | PM.OP ---
Brief Operative Note Date of Service: 05/24/21 Pre-op diagnosis: cecal mass Post-op diagnosis: same Procedure: LESLEY right colectomy Surgeon: CARMELO WICK MD Anesthesia: GETA Was an Superintendent Stevedoring used for this Procedure?: Yes Superintendent Stevedoring: Tangela Geronimo Estimated blood loss (mL): 20 IV fluids (mL): 1,000 Urine output (mL): 400 Pathology: other (right colon) Condition: stable Disposition: PACU
[2021-05-24] MEDS: HYDROmorphone HCl 0.5 MG/0.5 ML SYRINGE 0.25 MG IVPUSH ×3 (10:00→11:54)
[2021-05-24] MEDS: oxyCODONE HCl Immed Release 5 MG TABLET PO (10:30)
[2021-05-24] MEDS: Lactated Ringers 1,000 ML 80 ML IVCONT (12:32)
[2021-05-24] MEDS: oxyCODONE HCl Immed Release 5 MG TABLET 10 MG PO ×2 (14:27→22:02)
--- NOTE | 2021-05-24 14:37 | PM.EVENT ---
Event Note Date of Service: 05/24/21 Event Note: Patient seen postop Underwent uneventful right colon resection earlier Looks comfortable Says he has adequate pain control at this time Abdomen soft Dressings dry Stable vital signs Good urine output Pain management Catina garcia
--- NOTE | 2021-05-24 14:48 | HO.POSTANES ---
Post Anesthesia Evaluation Post Anesthesia Evaluation Vital Signs: Vital Signs Temp Pulse Resp BP Pulse Ox 05/24/21 12:26 97.5 F 112 H 18 129/65 98 05/24/21 12:00 105 H 17 140/77 H 100 05/24/21 11:55 105 H 17 139/81 100 05/24/21 11:50 105 H 18 129/77 99 05/24/21 11:20 100 17 138/76 99 05/24/21 10:50 98.4 F 95 17 144/74 H 100 05/24/21 10:35 94 18 155/82 H 100 05/24/21 10:20 95 17 150/75 H 100 05/24/21 10:15 97 16 150/75 H 100 05/24/21 10:13 17 05/24/21 10:10 98 17 100 05/24/21 10:05 99 17 151/73 H 100 05/24/21 10:00 95 17 154/74 H 100 05/24/21 09:50 85 16 154/74 H 100 05/24/21 09:45 94 17 163/88 H 100 05/24/21 09:40 81 16 148/75 H 100 05/24/21 09:35 98.0 F 94 16 156/85 H 100 05/24/21 06:28 97.2 F 96 16 158/80 H 100 Anesthesia: Monitored Mental Status: Awake Pain Control: Satisfactory Nausea/Vomiting: None Hydration: Adequate Anesthesia-Related Issues: No Anes. Related Issues
[2021-05-24] MEDS: Morphine Sulfate 2 MG/ML CARTRIDGE 4 MG IVPUSH (19:16)
[2021-05-24] MEDS: 0.9 % Sodium Chloride Flush 3 ML SYRINGE IVFLUSH (19:17)
[2021-05-24] MEDS: Tamsulosin HCL 0.4 MG CAPSULE PO (19:17)
[2021-05-24] MEDS: Zolpidem Tartrate 5 MG TABLET PO (21:59)
[2021-05-25] VITALS (7 sets, daily range): BP systolic 150–184; BP diastolic 82–92; PULSE 91–110; RESP 17–18; TEMP 36.4–37.1; O2SAT 94–99
[2021-05-25] MEDS: Morphine Sulfate 2 MG/ML CARTRIDGE 4 MG IVPUSH ×3 (01:11→14:57)
[2021-05-25] MEDS: Lactated Ringers 1,000 ML 80 ML IVCONT ×3 (01:11→22:21)
[2021-05-25] MEDS: oxyCODONE HCl Immed Release 5 MG TABLET 10 MG PO ×2 (02:32→08:35)
[2021-05-25 05:54] LABS: MANUAL DIFF FLAG NO
[2021-05-25 05:59] LABS: Basophils Percent Auto 0.1 % (0-2); Hemoglobin 11.2 g/dl (14.0-18.0); Imm Gran Abs Auto 0.03 X10*3/uL (0.00-0.03); Imm Gran Pct Auto 0.3 % (0.0-0.4); Lymphocytes Absolute Auto 0.8 X10*3/uL (1.2-4.9); Lymphocytes Percent Auto 7.6 % (20-40); Mean Corpuscular HGB Conc 33.9 g/dl (31.0-36.0); Mean Corpuscular Hemoglobin 33.5 pg (27.0-33.0); Mean Corpuscular Volume 98.8 fL (80.0-98.0); Mean Platelet Volume 10.3 fL (9.4-12.4); Monocytes Percent Auto 9.8 % (2-11); Neutrophils Absolute Auto 8.5 x10*3/uL (2.0-8.3); Neutrophils Percent Auto 82.2 % (45-73); Platelet Count 283 X10*3/uL (160-400); Red Blood Count 3.34 X10*6/uL (4.60-5.80); Red Cell Distribution Width 16.7 % (11.0-16.0); White Blood Count 10.3 X10*3/uL (4.8-10.8)
[2021-05-25 06:23] LABS: Anion Gap 14 (12-20); Blood Urea Nitrogen 8 mg/dL (9-16); Calcium 8.5 mg/dL (8.4-10.2); Carbon Dioxide 25 mmol/L (22-29); Chloride 100 mmol/L (96-108); Creatinine Clr Calc Pharmacy 66.3; Estimated Glomerular Filt Rate > 60; Glucose Random 104 mg/dL (60-115); Potassium 4.2 mmol/L (3.3-5.1); Sodium 135 mmol/L (135-145)
--- NOTE | 2021-05-25 08:23 | P.PNGS_ITS ---
Subjective Subjective Date of Service: 05/25/21 Interval history: Had incisional pain periodically overnight Denies flatus Overall says he is doing okay Physical Exam Vital Signs: Vital Signs: Last Vital Signs Temp 97.6 F 05/25/21 07:11 Pulse 98 05/25/21 07:11 Resp 17 05/25/21 07:11 BP 168/92 H 05/25/21 07:11 Pulse Ox 99 05/25/21 07:11 Body Mass Index 20.0 Chemistry 05/25/21 05:19 Sodium 135 Potassium 4.2 Carbon Dioxide 25 BUN 8 L Creatinine 0.74 Calcium 8.5 D Hematology 05/24/21 05/25/21 06:26 05:19 WBC 6.4 10.3 Hgb 13.0 L 11.2 L Plt Count 333 283 Const: Other: Appears comfortable General: no acute distress Resp: Effort & Inspection: normal respiratory effort Cardio: Rhythm: regular rhythm GI: Other: Soft, dressings dry, no guarding rebound Procedures Date of Service Date of Service: 05/25/21 Progress Note: A&P Assessment and plan (1) Cecum mass: Status: Acute Assessment and Plan: Status post right colon resection Doing well postop Pain management Out of bed to chair today Plan to DC Bourne Await return of GI function - keep on clear liquids Incentive spirometry Labs okay Fall Risk Details Current Medications: Current Medications Amlodipine Besylate (Amlodipine Besylate 5 Mg Tablet) 5 mg PO DAILY JUAN; Protocol Atorvastatin Calcium (Atorvastatin Calcium 10 Mg Tablet) 10 mg PO DAILY JUAN Diphenhydramine HCl (Diphenhydramine Hcl 50 Mg/Ml Vial) 25 mg IVPUSH Q6H PRN PRN Reason: Itching Heparin Sodium (Porcine) (Heparin Sodium,Porcine 5,000 Unit/Ml Vial) 5,000 unit SUBCUT Q12H [facility] Hydromorphone HCl (Hydromorphone Hcl 0.5 Mg/0.5 Ml Syringe) 0.25 mg IVPUSH Q5M PRN; Protocol PRN Reason: Pain, Severe (Pain Scale 7-10) Last Admin: 05/24/21 11:54 Dose: 0.25 mg Documented by: Acetaminophen (Ofirmev) 1,000 mg in 100 mls @ 400 mls/hr IV Q6H PRN PRN Reason: Pain, Severe (Pain Scale 7-10) Lactated Ringer's (Lr) 1,000 mls @ 80 mls/hr IVCONT .[id number] [facility] Last Admin: 05/25/21 01:11 Dose: 80 mls/hr Documented by: Morphine Sulfate (Morphine Sulfate 2 Mg/Ml Cartridge) 4 mg IVPUSH Q4H PRN; Protocol PRN Reason: Pain, Severe (Pain Scale 7-10) Last Admin: 05/25/21 05:17 Dose: 4 mg Documented by: Ondansetron HCl (Ondansetron Hcl 4 Mg/2 Ml Vial) 4 mg IVPUSH Q8H PRN PRN Reason: Nausea and Vomiting Oxycodone HCl (Oxycodone Hcl Immed Release 5 Mg Tablet) 5 mg PO Q4H PRN PRN Reason: Pain, Moderate (Pain Scale 4-6 Last Admin: 05/24/21 10:30 Dose: 5 mg Documented by: Oxycodone HCl (Oxycodone Hcl Immed Release 5 Mg Tablet) 10 mg PO Q4H PRN PRN Reason: Pain, Severe (Pain Scale 7-10) Last Admin: 05/25/21 02:32 Dose: 10 mg Documented by: Sodium Chloride (0.9 % Sodium Chloride Flush 3 Ml Syringe) 3 ml IVFLUSH [facility] Last Admin: 05/24/21 19:17 Dose: 3 ml Documented by: Tamsulosin HCl (Tamsulosin Hcl 0.4 Mg Capsule) 0.4 mg PO BEDTIME [facility] Last Admin: 05/24/21 19:17 Dose: 0.4 mg Documented by: Zolpidem Tartrate (Zolpidem Tartrate 5 Mg Tablet) 5 mg PO BEDTIME PRN PRN Reason: Insomnia Last Admin: 05/24/21 21:59 Dose: 5 mg Documented by: Time Spent With Patient Time: Total time spent is greater than 50% in coordination of care (as documented) at patient's floor/unit and/or counseling patient: Time with patient: 15 - 24 minutes Quality Stroke Does the patient have a stroke diagnosis?: No VTE Prior VTE?: No VTE Risk Level:: Medical - moderate - high VTE Device Contraindication: N/A - Device Ordered VTE Drug Contraindication: N/A - Med Ordered
[2021-05-25] MEDS: Heparin Sodium,Porcine 5,000 UNIT/ML VIAL 5000 UNIT SUBCUT (08:35)
[2021-05-25] MEDS: Atorvastatin Calcium 10 MG TABLET PO (08:35)
[2021-05-25] MEDS: amLODIPine Besylate 5 MG TABLET PO (08:36)
--- NOTE | 2021-05-25 08:40 | MHC.CM.PN ---
CM MET WITH PT WHO REPORTS HE LIVES AT HOME WITH HIS . PT REPORTS BEING INDEPENDENT WITH CARE HAVING NO SERVICES AND NO DME PT HAS A HCP AND PCP (OSKAR LOONEY) ON FILE, HE CONFIRMS THEY ARE CORRECT. PT HAS HAD [facility] FOR PT IN THE PAST AND IS INTERESTED IN [facility] AT DC IF INDICATED CURRENT DC PLAN IS HOME WITH NO SERVICES TO TRANSPORT
--- NOTE | 2021-05-25 13:40 | HO.POSTANES ---
Post Anesthesia Evaluation Post Anesthesia Evaluation Vital Signs: Vital Signs Temp Pulse Resp BP Pulse Ox 05/25/21 10:58 97.6 F 93 18 154/85 H 99 05/25/21 07:11 97.6 F 98 17 168/92 H 99 05/25/21 04:00 97.8 F 91 18 162/86 H 97 Anesthesia: General Endotracheal-GETA Mental Status: Awake Pain Control: Satisfactory Nausea/Vomiting: None Hydration: Adequate Anesthesia-Related Issues: No Anes. Related Issues
[2021-05-25] MEDS: Zolpidem Tartrate 5 MG TABLET PO (22:15)
[2021-05-25] MEDS: oxyCODONE HCl Immed Release 5 MG TABLET PO (22:15)
[2021-05-25] MEDS: Tamsulosin HCL 0.4 MG CAPSULE PO (22:15)
[2021-05-26] VITALS (7 sets, daily range): BP systolic 136–169; BP diastolic 69–93; PULSE 57–110; RESP 17–18; TEMP 36.3–37.1; O2SAT 95–97
--- NOTE | 2021-05-26 06:05 | PC.NURSE ---
At 3 am pt was seen dressed, with IV out, walking the hallways. Nurse escorted pt back to his room. Before this incident, pt was a/o x 4 making clear conversation. Now patient was talking about event that were impossible at the time. For example, expressing that his help him get dress, when he had no visits at the time. PT was not relocated to a room closer to the nursing station. PT was also given a camera and bed alarms was in place. Pt continues to need stand by assistance for bathroom.
[2021-05-26] MEDS: Heparin Sodium,Porcine 5,000 UNIT/ML VIAL 5000 UNIT SUBCUT ×2 (07:53→20:23)
[2021-05-26] MEDS: amLODIPine Besylate 5 MG TABLET PO (07:53)
[2021-05-26] MEDS: Atorvastatin Calcium 10 MG TABLET PO (07:53)
[2021-05-26] MEDS: oxyCODONE HCl Immed Release 5 MG TABLET 10 MG PO (07:53)
--- NOTE | 2021-05-26 08:08 | PM.PNGS ---
Subjective Subjective Date of Service: 05/26/21 <Tangela Geronimo PA-C - Last Filed: 05/26/21 08:15> 05/26/21 <Nadeem Saldaña MD - Last Filed: 05/26/21 14:01> Interval history: Having difficulty with pain control. Did not receive analgesics since 10pm last night. Now having severe pain at incision site. Denies nausea. Denies flatus. Bourne removed yesterday and voiding on own. Per nursing, some confusion overnight. Patient got OOB and tried to go home. Patient also confused on where he is this morning. <Tangela Geronimo PA-C - Last Filed: 05/26/21 08:15> Having difficulty with pain control. Did not receive analgesics since 10pm last night. Now having severe pain at incision site. Denies nausea. Denies flatus. Bourne removed yesterday and voiding on own. Per nursing, some confusion overnight. Patient got OOB and tried to go home. Patient also confused on where he is this morning. Patient says that he did not get pain medications overnight Appeared to have episodes of confusion Now much better Sitting comfortably Abdomen soft and benign, incision clean and dry Pain management Encouraged to get out of bed and ambulate Await return of GI function <Nadeem Saldaña MD - Last Filed: 05/26/21 14:01> Physical Exam Vital Signs: Vital Signs: Last Vital Signs Temp 98.6 F 05/26/21 07:22 Pulse 110 H 05/26/21 07:53 Resp 17 05/26/21 07:22 BP 165/89 H 05/26/21 07:53 Pulse Ox 97 05/26/21 07:22 Body Mass Index 20.0 <Tangela Geronimo PA-C - Last Filed: 05/26/21 08:15> Const: General: no acute distress and other (appears in pain) <Tangela Geronimo PA-C - Last Filed: 05/26/21 08:15> Orientation/consciousness: oriented to person and oriented to time <Tangela Geronimo PA-C - Last Filed: 05/26/21 08:15> Eyes: Sclerae: sclerae normal <Tangela Geronimo PA-C - Last Filed: 05/26/21 08:15> Resp: Effort & Inspection: normal respiratory effort <Tanegla ERMA Geronimo - Last Filed: 05/26/21 08:15> Cardio: Rate: tachycardic <Tangela ERMA Geronimo - Last Filed: 05/26/21 08:15> GI: Inspection: No distended and Yes incision (dressing clean/intact) <Tangela Geronimo PA-C - Last Filed: 05/26/21 08:15> Palpation (GI): Soft to palpation, Tenderness to palpation present (GI) (incisional) and no guarding <Tangela Geronimo PA-C - Last Filed: 05/26/21 08:15> Skin: General skin exam: no rashes or lesions noted <Tangela Geronimo PA-C - Last Filed: 05/26/21 08:15> Neuro: General: oriented to person and oriented to time <GILBERT MakSarahEmanuel - Last Filed: 05/26/21 08:15> Extrem: General: Yes no clubbing, cyanosis or edema <Tangela Geronimo PA-C - Last Filed: 05/26/21 08:15> Procedures Date of Service Date of Service: 05/26/21 <Tangela Geronimo PA-C Last Filed: 05/26/21 08:15> Progress Note: A&P Assessment and plan (1) HTN (hypertension): Status: Acute <Tangela Geronimo PA-C - Last Filed: 05/26/21 08:15> (2) Cecum mass: Status: Acute <Tangela Geronimo PA-C - Last Filed: 05/26/21 08:15> (3) Anemia: Status: Acute <ERMA Mak Last Filed: 05/26/21 08:15> (4) S/P right colectomy: Status: Acute <Tangela Geronimo PA-C - Last Filed: 05/26/21 08:15> Assessment and Plan: Mr. Amor is POD #2 s/p LESLEY right colectomy for cecal mass. He has having difficulty with pain control which is likely due to the long gaps in between doses. Otherwise, appearing well. He is tachycardic and hypertensive but this is likely secondary to pain. Abd benign, soft with clean dressing. Will remove later today. Encouraged to ask for pain meds as needed, changed ofirmev to q6h scheduled. Cont clear liquids for now, IVF. Encouraged OOB/ambulation and IS use. Repeat labs in am. Some confusion overnight. Will d/c ambien. <Tangela Geronimo PA-C - Last Filed: 05/26/21 08:15> Fall Risk Details Current Medications: Current Medications Amlodipine Besylate (Amlodipine Besylate 5 Mg Tablet) 5 mg PO DAILY [facility]; Protocol Last Admin: 05/26/21 07:53 Dose: 5 mg Documented by: Atorvastatin Calcium (Atorvastatin Calcium 10 Mg Tablet) 10 mg PO DAILY [facility] Last Admin: 05/26/21 07:53 Dose: 10 mg Documented by: Diphenhydramine HCl (Diphenhydramine Hcl 50 Mg/Ml Vial) 25 mg IVPUSH Q6H PRN PRN Reason: Itching Heparin Sodium (Porcine) (Heparin Sodium,Porcine 5,000 Unit/Ml Vial) 5,000 unit SUBCUT Q12H [facility] Last Admin: 05/26/21 07:53 Dose: 5,000 unit Documented by: Hydromorphone HCl (Hydromorphone Hcl 0.5 Mg/0.5 Ml Syringe) 0.25 mg IVPUSH Q5M PRN; Protocol PRN Reason: Pain, Severe (Pain Scale 7-10) Last Admin: 05/24/21 11:54 Dose: 0.25 mg Documented by: Acetaminophen (Ofirmev) 1,000 mg in 100 mls @ 400 mls/hr IV Q6H PRN PRN Reason: Pain, Severe (Pain Scale 7-10) Last Admin: 05/26/21 07:54 Dose: 400 mls/hr Documented by: Lactated Ringer's (Lr) 1,000 mls @ 80 mls/hr IVCONT .[id number] [facility] Last Admin: 05/25/21 22:21 Dose: 80 mls/hr Documented by: Morphine Sulfate (Morphine Sulfate 2 Mg/Ml Cartridge) 4 mg IVPUSH Q4H PRN; Protocol PRN Reason: Pain, Severe (Pain Scale 7-10) Last Admin: 05/25/21 14:57 Dose: 4 mg Documented by: Ondansetron HCl (Ondansetron Hcl 4 Mg/2 Ml Vial) 4 mg IVPUSH Q8H PRN PRN Reason: Nausea and Vomiting Oxycodone HCl (Oxycodone Hcl Immed Release 5 Mg Tablet) 5 mg PO Q4H PRN PRN Reason: Pain, Moderate (Pain Scale 4-6 Last Admin: 05/25/21 22:15 Dose: 5 mg Documented by: Oxycodone HCl (Oxycodone Hcl Immed Release 5 Mg Tablet) 10 mg PO Q4H PRN PRN Reason: Pain, Severe (Pain Scale 7-10) Last Admin: 05/26/21 07:53 Dose: 10 mg Documented by: Sodium Chloride (0.9 % Sodium Chloride Flush 3 Ml Syringe) [facility] Last Admin: 05/26/21 07:14 Dose: Not Given Documented by: Tamsulosin HCl (Tamsulosin Hcl 0.4 Mg Capsule) 0.4 mg PO BEDTIME [facility] Last Admin: 05/25/21 22:15 Dose: 0.4 mg Documented by: Zolpidem Tartrate (Zolpidem Tartrate 5 Mg Tablet) 5 mg PO BEDTIME PRN PRN Reason: Insomnia Last Admin: 05/25/21 22:15 Dose: 5 mg Documented by: <Tangela Geronimo PA-C - Last Filed: 05/26/21 08:15> Time Spent With Patient Time: Total time spent is greater than 50% in coordination of care (as documented) at patient's floor/unit and/or counseling patient: <Tangela Geronimo PA-C - Last Filed: 05/26/21 08:15> Time with patient: 15 - 24 minutes <Tangela Geronimo PA-C - Last Filed: 05/26/21 08:15> Quality Stroke Does the patient have a stroke diagnosis?: No <ERMA Mak Last Filed: 05/26/21 08:15> VTE Prior VTE?: No <ERMA Mak Last Filed: 05/26/21 08:15> VTE Risk Level:: Medical - moderate - high <ERMA Mak Filed: 05/26/21 08:15> VTE Device Contraindication: N/A - Device Ordered <ERMA Mak Last Filed: 05/26/21 08:15> VTE Drug Contraindication: N/A - Med Ordered <Tangela Geronimo PA-C - Last Filed: 05/26/21 08:15>
--- NOTE | 2021-05-26 10:24 | MHC.CM.PN ---
[facility] REFERRAL PLACED D/T RIGHT COLECTOMY D/T CECAL MASS, [facility] NOT TAKING NEW PTS SO REFERRAL PLACED TO [facility]. CM WILL CONT TO FOLLOW D/C NEEDS
[2021-05-26] MEDS: 0.9 % Sodium Chloride Flush 3 ML SYRINGE IVFLUSH (15:58)
--- NOTE | 2021-05-26 16:19 | PM.EVENT ---
Event Note Date of Service: 05/26/21 Event Note: Seen on afternoon rounds Feels better Good pain control Abdomen soft Looks comfortable Await for return of GI function Encouraged to ambulate
[2021-05-26] MEDS: Lactated Ringers 1,000 ML 80 ML IVCONT (20:22)
[2021-05-26] MEDS: Tamsulosin HCL 0.4 MG CAPSULE PO (20:23)
[2021-05-27] VITALS (8 sets, daily range): BP systolic 114–166; BP diastolic 66–90; PULSE 88–115; RESP 15–20; TEMP 36.1–37; O2SAT 96–98
[2021-05-27 06:14] LABS: MANUAL DIFF FLAG NO
[2021-05-27 06:18] LABS: Basophils Percent Auto 0.5 % (0-2); Eosinophils Absolute Auto 0.1 X10*3/uL (0.0-0.4); Hematocrit 32.4 % (42.0-52.0); Hemoglobin 11.1 g/dl (14.0-18.0); Imm Gran Abs Auto 0.04 X10*3/uL (0.00-0.03); Imm Gran Pct Auto 0.5 % (0.0-0.4); Lymphocytes Absolute Auto 0.9 X10*3/uL (1.2-4.9); Lymphocytes Percent Auto 11.4 % (20-40); Mean Corpuscular HGB Conc 34.3 g/dl (31.0-36.0); Mean Corpuscular Hemoglobin 33.1 pg (27.0-33.0); Mean Corpuscular Volume 96.7 fL (80.0-98.0); Mean Platelet Volume 9.9 fL (9.4-12.4); Monocytes Absolute Auto 0.7 X10*3/uL (0.1-1.2); Monocytes Percent Auto 8.7 % (2-11); Neutrophils Absolute Auto 6.2 x10*3/uL (2.0-8.3); Neutrophils Percent Auto 77.9 % (45-73); Platelet Count 283 X10*3/uL (160-400); Red Blood Count 3.35 X10*6/uL (4.60-5.80)
[2021-05-27 06:36] LABS: Anion Gap 12 (12-20); Blood Urea Nitrogen 6 mg/dL (9-16); Calcium 8.8 mg/dL (8.4-10.2); Carbon Dioxide 27 mmol/L (22-29); Chloride 100 mmol/L (96-108); Creatinine Clr Calc Pharmacy 76.6; Estimated Glomerular Filt Rate > 60; Glucose Fasting 88 mg/dL (60-99); Potassium 3.5 mmol/L (3.3-5.1); Sodium 135 mmol/L (135-145)
--- NOTE | 2021-05-27 08:08 | PM.PNGS ---
Subjective Subjective Date of Service: 05/27/21 <Tangela Geronimo PA-C - Last Filed: 05/27/21 08:12> 05/27/21 <Nadeem Saldaña MD - Last Filed: 05/27/21 15:42> Interval history: Feels much better this morning. Still having pain but much more comfortable with analgesics. Tolerating clears. Denies nausea but is bloated this am. OOB and ambulated yesterday. <Tangela Geronimo PA-C - Last Filed: 05/27/21 08:12> Physical Exam Vital Signs: Vital Signs: Last Vital Signs Temp 98.6 F 05/27/21 07:49 Pulse 111 H 05/27/21 07:49 Resp 16 05/27/21 07:49 BP 157/86 H 05/27/21 07:49 Pulse Ox 97 05/27/21 07:49 Body Mass Index 20.0 <Tangela Geronimo PA-C - Last Filed: 05/27/21 08:12> Const: General: comfortable, no acute distress and alert <Tangela Geronimo PA-C - Last Filed: 05/27/21 08:12> Orientation/consciousness: patient oriented x3 <Tangela Geronimo PA-C - Last Filed: 05/27/21 08:12> Resp: Effort & Inspection: normal respiratory effort <Tangela Geronimo PA-C - Last Filed: 05/27/21 08:12> Cardio: Rate: regular rate <Tangela Geronimo PA-C - Last Filed: 05/27/21 08:12> GI: Inspection: Yes distended and Yes incision (clean, ecchymosis surrounding) <Tangela Geronimo PA-C - Last Filed: 05/27/21 08:12> Palpation (GI): Soft to palpation, Tenderness to palpation present (GI) (mild, incisional), no guarding and not rigid <ERMA Mak Last Filed: 05/27/21 08:12> Percussion: Yes tympanic to percussion <ERMA Mak Last Filed: 05/27/21 08:12> Skin: General skin exam: no rashes or lesions noted <Tangela Geronimo PA-C - Last Filed: 05/27/21 08:12> Neuro: General: patient oriented x3 <Tangela Geronimo PA-C - Last Filed: 05/27/21 08:12> Extrem: General: Yes no clubbing, cyanosis or edema <Tangela Geronimo PA-C - Last Filed: 05/27/21 08:12> Procedures Date of Service Date of Service: 05/27/21 <Tangela Geronimo PA-C - Last Filed: 05/27/21 08:12> Progress Note: A&P Assessment and plan (1) S/P right colectomy: Status: Acute <ERMA Mak Last Filed: 05/27/21 08:12> Assessment and Plan: Says he is comfortable although has incisional pain with movement Ambulated this morning Denies flatus Looks well Abdomen soft, some distention but no guarding or rebound Incision dry Await return of GI function Encouraged to ambulate more Keep on clear liquids Clinically looks well Catina garcia at bedside Seen and examined independently - agree with GILBERT Geronimo <Nadeem Saldaña MD - Last Filed: 05/27/21 15:42> (2) Cecum mass: Status: Acute <Tangela Geronimo PA-C - Last Filed: 05/27/21 08:12> Assessment and Plan: Mr. Amor is POD #3 s/p LESLEY right colectomy for cecal mass. Doing well, pain better controlled. On clear liquids but is distended and tympanitic this morning but soft. Incision clean. Continue clear liquids until passing flatus. Encouraged OOB/ambulation and IS use. AM labs reviewed. Pathology pending. <ERMA Mak Last Filed: 05/27/21 08:12> Fall Risk Details Current Medications: Current Medications Amlodipine Besylate (Amlodipine Besylate 5 Mg Tablet) 5 mg PO DAILY [facility]; Protocol Last Admin: 05/26/21 07:53 Dose: 5 mg Documented by: Atorvastatin Calcium (Atorvastatin Calcium 10 Mg Tablet) 10 mg PO DAILY JUAN Last Admin: 05/26/21 07:53 Dose: 10 mg Documented by: Diphenhydramine HCl (Diphenhydramine Hcl 50 Mg/Ml Vial) 25 mg IVPUSH Q6H PRN PRN Reason: Itching Heparin Sodium (Porcine) (Heparin Sodium,Porcine 5,000 Unit/Ml Vial) 5,000 unit SUBCUT Q12H [facility] Last Admin: 05/26/21 20:23 Dose: 5,000 unit Documented by: Hydromorphone HCl (Hydromorphone Hcl 0.5 Mg/0.5 Ml Syringe) 0.25 mg IVPUSH Q5M PRN; Protocol PRN Reason: Pain, Severe (Pain Scale 7-10) Last Admin: 05/24/21 11:54 Dose: 0.25 mg Documented by: Lactated Ringer's (Lr) 1,000 mls @ 80 mls/hr IVCONT .[id number] [facility] Last Infusion: 05/27/21 02:43 Dose: 80 mls/hr Documented by: Acetaminophen (Ofirmev) 1,000 mg in 100 mls @ 400 mls/hr IV Q6H [facility] Last Infusion: 05/27/21 02:42 Dose: Infused Documented by: Morphine Sulfate (Morphine Sulfate 2 Mg/Ml Cartridge) 4 mg IVPUSH Q4H PRN; Protocol PRN Reason: Pain, Severe (Pain Scale 7-10) Last Admin: 05/25/21 14:57 Dose: 4 mg Documented by: Ondansetron HCl (Ondansetron Hcl 4 Mg/2 Ml Vial) 4 mg IVPUSH Q8H PRN PRN Reason: Nausea and Vomiting Oxycodone HCl (Oxycodone Hcl Immed Release 5 Mg Tablet) 5 mg PO Q4H PRN PRN Reason: Pain, Moderate (Pain Scale 4-6 Last Admin: 05/25/21 22:15 Dose: 5 mg Documented by: Oxycodone HCl (Oxycodone Hcl Immed Release 5 Mg Tablet) 10 mg PO Q4H PRN PRN Reason: Pain, Severe (Pain Scale 7-10) Last Admin: 05/26/21 07:53 Dose: 10 mg Documented by: Sodium Chloride (0.9 % Sodium Chloride Flush 3 Ml Syringe) 3 ml IVFLUSH QSHIFT [facility] Last Admin: 05/27/21 00:15 Dose: Not Given Documented by: Tamsulosin HCl (Tamsulosin Hcl 0.4 Mg Capsule) 0.4 mg PO BEDTIME [facility] Last Admin: 05/26/21 20:23 Dose: 0.4 mg Documented by: <Tangela Geronimo PA-C - Last Filed: 05/27/21 08:12> Time Spent With Patient Time: Total time spent is greater than 50% in coordination of care (as documented) at patient's floor/unit and/or counseling patient: <Tangela Geronimo PA-C - Last Filed: 05/27/21 08:12> Time with patient: 15 - 24 minutes <Tangela Geronimo PA-C - Last Filed: 05/27/21 08:12> Quality Stroke Does the patient have a stroke diagnosis?: No <Tangela Geronimo PA-C - Last Filed: 05/27/21 08:12> VTE Prior VTE?: No <Tangela Geronimo PA-C - Last Filed: 05/27/21 08:12> VTE Risk Level:: Medical - moderate - high <Tangela Geronimo PA-C - Last Filed: 05/27/21 08:12> VTE Device Contraindication: N/A - Device Ordered <Tangela Geronimo PA-C - Last Filed: 05/27/21 08:12> VTE Drug Contraindication: N/A - Med Ordered <Tangela Geronimo PA-C - Last Filed: 05/27/21 08:12>
[2021-05-27] MEDS: Morphine Sulfate 2 MG/ML CARTRIDGE 4 MG IVPUSH (09:24)
[2021-05-27] MEDS: Lactated Ringers 1,000 ML 80 ML IVCONT ×2 (09:33→21:31)
[2021-05-27] MEDS: 0.9 % Sodium Chloride Flush 3 ML SYRINGE IVFLUSH (09:40)
[2021-05-27] MEDS: Atorvastatin Calcium 10 MG TABLET PO (09:42)
[2021-05-27] MEDS: amLODIPine Besylate 5 MG TABLET PO (09:42)
[2021-05-27] MEDS: Heparin Sodium,Porcine 5,000 UNIT/ML VIAL 5000 UNIT SUBCUT ×2 (09:44→20:29)
--- NOTE | 2021-05-27 10:10 | MHC.CM.PN ---
NURSE EAR NOSE THROAT PHYSICIAN SARAH ELECTRONIC MEDICAL RECORD REVIEWED, PATIENT/P COLECTOMY SECONDARY TO CECUM MASS.(ABDOMEN DISTENDED AND TYMPHANIC PER NOTES) PER DOCUMENTATION PATIENT FEELING BETTER, STILL WITH PAIN, DISCOMFORT COMFORTABLE WITH ANALGEICS, TOLERATING CLEAR LIQUID DIET , PLAN OF CARE ;CONTINUES WITH CLEAR LIQUIDS, IV FLUIDS , IV/PO ANALGEIC DISCHARGE PLAN HOME NO SERVICES ANTICIPATED TRANSPORTATION PATIENT TO SELF ARRANGE PCP BRITTANY SNELL TO CALL FOR [facility] FOLLOW [facility]
[2021-05-27] MEDS: oxyCODONE HCl Immed Release 5 MG TABLET PO ×2 (13:32→20:36)
--- NOTE | 2021-05-27 14:42 | MHC.CLN ---
F/U APPEARS TO BE TOLERATING CLEAR LIQUID DIET. CLEAR LIQUIDS X 4 DAYS. ADDED ENSURE CLEAR TID TO PROVIDE 720 KCAL, 24 G PROTEIN
[2021-05-27] MEDS: Tamsulosin HCL 0.4 MG CAPSULE PO (20:28)
[2021-05-27] MEDS: Zolpidem Tartrate 5 MG TABLET PO (21:27)
[2021-05-28] VITALS (10 sets, daily range): BP systolic 123–172; BP diastolic 76–93; PULSE 79–127; RESP 16–17; TEMP 36.4–38.3; O2SAT 95–97
[2021-05-28] MEDS: ondansetron HCL 4 MG/2 ML VIAL IVPUSH ×2 (03:15→17:32)
[2021-05-28] MEDS: Morphine Sulfate 2 MG/ML CARTRIDGE 4 MG IVPUSH (03:21)
--- NOTE | 2021-05-28 06:27 | PC.NURSE ---
Approximately 0330 patient presented with 8/10 pain to abdomen. Nausea, one episode vomiting. Elevated BP and pulse. Medicated with MS 4mg and Zofran with good effect, patient stated he felt much improved and has been sleeping about three hours after meds administered. Vitals normalized. Patient denies passing flatus and no BM since surgery.
[2021-05-28] MEDS: 0.9 % Sodium Chloride Flush 3 ML SYRINGE IVFLUSH ×2 (08:05→15:03)
[2021-05-28] MEDS: Atorvastatin Calcium 10 MG TABLET PO (08:08)
[2021-05-28] MEDS: amLODIPine Besylate 5 MG TABLET PO (08:08)
[2021-05-28] MEDS: Heparin Sodium,Porcine 5,000 UNIT/ML VIAL 5000 UNIT SUBCUT ×2 (08:13→20:33)
[2021-05-28 11:00] LABS: MANUAL DIFF FLAG NO
[2021-05-28 11:02] LABS: Basophils Percent Auto 0.4 % (0-2); Eosinophils Absolute Auto 0.1 X10*3/uL (0.0-0.4); Eosinophils Percent Auto 0.9 % (0-4); Hematocrit 34.7 % (42.0-52.0); Imm Gran Abs Auto 0.02 X10*3/uL (0.00-0.03); Imm Gran Pct Auto 0.3 % (0.0-0.4); Lymphocytes Absolute Auto 0.8 X10*3/uL (1.2-4.9); Lymphocytes Percent Auto 10.5 % (20-40); Mean Corpuscular HGB Conc 34.6 g/dl (31.0-36.0); Mean Corpuscular Hemoglobin 33.5 pg (27.0-33.0); Mean Corpuscular Volume 96.9 fL (80.0-98.0); Mean Platelet Volume 9.8 fL (9.4-12.4); Monocytes Absolute Auto 0.6 X10*3/uL (0.1-1.2); Monocytes Percent Auto 7.7 % (2-11); Neutrophils Percent Auto 80.2 % (45-73); Platelet Count 381 X10*3/uL (160-400); Red Blood Count 3.58 X10*6/uL (4.60-5.80); Red Cell Distribution Width 15.9 % (11.0-16.0); White Blood Count 7.5 X10*3/uL (4.8-10.8)
[2021-05-28 11:33] LABS: Anion Gap 13 (12-20); Blood Urea Nitrogen 6 mg/dL (9-16); Calcium 8.8 mg/dL (8.4-10.2); Carbon Dioxide 28 mmol/L (22-29); Chloride 98 mmol/L (96-108); Creatinine Clr Calc Pharmacy 59.1; Estimated Glomerular Filt Rate > 60; Glucose Random 149 mg/dL (60-115); Potassium 3.5 mmol/L (3.3-5.1); Sodium 135 mmol/L (135-145)
[2021-05-28] MEDS: Lactated Ringers 1,000 ML 80 ML IVCONT (12:34)
--- NOTE | 2021-05-28 12:48 | PM.PNGS ---
Subjective Subjective Date of Service: 05/28/21 Interval history: Reports ongoing incisional pain, waxing and waning. No nausea. No flatus. Had a fever of 101 this morning. No cough. No leg pain. No dysuria. Physical Exam Vital Signs: Vital Signs: Last Vital Signs Temp 97.5 F 05/28/21 12:00 Pulse 101 H 05/28/21 12:00 Resp 17 05/28/21 12:00 BP 135/76 05/28/21 12:00 Pulse Ox 97 05/28/21 12:00 Body Mass Index 20.0 T-max one hundred one at 08:00 Const: General: cooperative, no acute distress, alert and awake Resp: Effort & Inspection: normal respiratory effort Auscultation: clear to auscultation bilaterally (Slightly diminished at bases) Cardio: Rate: regular rate Rhythm: regular rhythm GI: Other: Distended, not tense, hypoactive bowel sounds, incisions clean dry and intact with some surrounding ecchymotic change, appropriately tender in incisional areas, no other abdominal tenderness Objective Data Active Medications Amlodipine Besylate (Amlodipine Besylate 5 Mg Tablet) 5 mg PO DAILY [facility]; Protocol Last Admin: 05/28/21 08:08 Dose: 5 mg Documented by: REJI Atorvastatin Calcium (Atorvastatin Calcium 10 Mg Tablet) 10 mg PO DAILY [facility] Last Admin: 05/28/21 08:08 Dose: 10 mg Documented by: REJI Diphenhydramine HCl (Diphenhydramine Hcl 50 Mg/Ml Vial) 25 mg IVPUSH Q6H PRN PRN Reason: Itching Heparin Sodium (Porcine) (Heparin Sodium,Porcine 5,000 Unit/Ml Vial) 5,000 unit SUBCUT Q12H [facility] Last Admin: 05/28/21 08:13 Dose: 5,000 unit Documented by: REJI Hydromorphone HCl (Hydromorphone Hcl 0.5 Mg/0.5 Ml Syringe) 0.25 mg IVPUSH Q5M PRN; Protocol PRN Reason: Pain, Severe (Pain Scale 7-10) Last Admin: 05/24/21 11:54 Dose: 0.25 mg Documented by: NAHUMILSangeeta Lactated Ringer's (Lr) 1,000 mls @ 80 mls/hr IVCONT .[id number] [facility] Last Admin: 05/28/21 12:34 Dose: 80 mls/hr Documented by: REJI Acetaminophen (Ofirmev) 1,000 mg in 100 mls @ 400 mls/hr IV Q6H [facility] Last Infusion: 05/28/21 08:29 Dose: 0 mls/hr Documented by: REJI Morphine Sulfate (Morphine Sulfate 2 Mg/Ml Cartridge) 4 mg IVPUSH Q4H PRN; Protocol PRN Reason: Pain, Severe (Pain Scale 7-10) Last Admin: 05/28/21 03:21 Dose: 4 mg Documented by: FARHAD Ondansetron HCl (Ondansetron Hcl 4 Mg/2 Ml Vial) 4 mg IVPUSH Q8H PRN PRN Reason: Nausea and Vomiting Last Admin: 05/28/21 03:15 Dose: 4 mg Documented by: FARHAD Oxycodone HCl (Oxycodone Hcl Immed Release 5 Mg Tablet) 5 mg PO Q4H PRN PRN Reason: Pain, Moderate (Pain Scale 4-6 Last Admin: 05/27/21 20:36 Dose: 5 mg Documented by: ERIC Oxycodone HCl (Oxycodone Hcl Immed Release 5 Mg Tablet) 10 mg PO Q4H PRN PRN Reason: Pain, Severe (Pain Scale 7-10) Last Admin: 05/26/21 07:53 Dose: 10 mg Documented by: COTEMA Sodium Chloride (0.9 % Sodium Chloride Flush 3 Ml [facility]) [facility] Last Admin: 05/28/21 08:05 Dose: 3 ml Documented by: REJI Tamsulosin HCl (Tamsulosin Hcl 0.4 Mg Capsule) 0.4 mg PO BEDTIME [facility] Last Admin: 05/27/21 20:28 Dose: 0.4 mg Documented by: ERIC Zolpidem Tartrate (Zolpidem Tartrate 5 Mg Tablet) 5 mg PO BEDTIME PRN PRN Reason: Insomnia Last Admin: 05/27/21 21:27 Dose: 5 mg Documented by: ERIC Labs CBC & Chem 7: 05/28/21 10:56 05/28/21 10:56 Labs: Laboratory Results - last 24 hr 05/28/21 05/28/21 10:56 10:56 MCV 96.9 MCH 33.5 H MCHC 34.6 RDW 15.9 Plt Count 381 D MPV 9.8 Immature Gran % (Auto) 0.3 Neut % (Auto) 80.2 H Lymph % (Auto) 10.5 L Russell % (Auto) 7.7 Eos % (Auto) 0.9 Baso % (Auto) 0.4 Lymph # (Auto) 0.8 L Russell # (Auto) 0.6 Eos # (Auto) 0.1 Baso # (Auto) 0.0 Abs Immat Gran (auto) 0.02 Absolute Neuts (auto) 6.0 Absolute Nucleated RBC 0.000 Nucleated RBC % (auto) 0.0 Anion Gap 13 Estim Creat Clear Calc 59.1 Estimated GFR > 60 Random Glucose 149 H D Calcium 8.8 Imaging Abdominal x-ray: Radiologist's impression: Impressions Chest X-Ray 05/28/21 11:42 IMPRESSION: Small bilateral pleural effusions. No evidence of pneumonia. KUB X-Ray 05/28/21 11:42 IMPRESSION: Dilated small bowel with air-fluid levels. Differential would include small bowel obstruction and postoperative ileus. 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 He has developed a postoperative ileus and had a fever this morning. White blood count and electrolytes are normal. No evidence of pneumonia. Continue ambulation, incentive spirometry. Fall Risk Details Current Medications: Current Medications Amlodipine Besylate (Amlodipine Besylate 5 Mg Tablet) 5 mg PO DAILY [facility]; Protocol Last Admin: 05/28/21 08:08 Dose: 5 mg Documented by: Atorvastatin Calcium (Atorvastatin Calcium 10 Mg Tablet) 10 mg PO DAILY [facility] Last Admin: 05/28/21 08:08 Dose: 10 mg Documented by: Diphenhydramine HCl (Diphenhydramine Hcl 50 Mg/Ml Vial) 25 mg IVPUSH Q6H PRN PRN Reason: Itching Heparin Sodium (Porcine) (Heparin Sodium,Porcine 5,000 Unit/Ml Vial) 5,000 unit SUBCUT Q12H [facility] Last Admin: 05/28/21 08:13 Dose: 5,000 unit Documented by: Hydromorphone HCl (Hydromorphone Hcl 0.5 Mg/0.5 Ml Syringe) 0.25 mg IVPUSH Q5M PRN; Protocol PRN Reason: Pain, Severe (Pain Scale 7-10) Last Admin: 05/24/21 11:54 Dose: 0.25 mg Documented by: Lactated Ringer's (Lr) 1,000 mls @ 80 mls/hr IVCONT .[id number] [facility] Last Admin: 05/28/21 12:34 Dose: 80 mls/hr Documented by: Acetaminophen ([facility]) 1,000 mg in 100 mls @ 400 mls/hr IV Q6H [facility] Last Infusion: 05/28/21 08:29 Dose: Infused Documented by: Morphine Sulfate (Morphine Sulfate 2 Mg/Ml Cartridge) 4 mg IVPUSH Q4H PRN; Protocol PRN Reason: Pain, Severe (Pain Scale 7-10) Last Admin: 05/28/21 03:21 Dose: 4 mg Documented by: Ondansetron HCl (Ondansetron Hcl 4 Mg/2 Ml Vial) 4 mg IVPUSH Q8H PRN PRN Reason: Nausea and Vomiting Last Admin: 05/28/21 03:15 Dose: 4 mg Documented by: Oxycodone HCl (Oxycodone Hcl Immed Release 5 Mg Tablet) 5 mg PO Q4H PRN PRN Reason: Pain, Moderate (Pain Scale 4-6 Last Admin: 05/27/21 20:36 Dose: 5 mg Documented by: Oxycodone HCl (Oxycodone Hcl Immed Release 5 Mg Tablet) 10 mg PO Q4H PRN PRN Reason: Pain, Severe (Pain Scale 7-10) Last Admin: 05/26/21 07:53 Dose: 10 mg Documented by: Sodium Chloride (0.9 % Sodium Chloride Flush 3 Ml Syringe) 3 ml IVFLUSH [facility] Last Admin: 05/28/21 08:05 Dose: 3 ml Documented by: Tamsulosin HCl (Tamsulosin Hcl 0.4 Mg Capsule) 0.4 mg PO BEDTIME [facility] Last Admin: 05/27/21 20:28 Dose: 0.4 mg Documented by: Zolpidem Tartrate (Zolpidem Tartrate 5 Mg Tablet) 5 mg PO BEDTIME PRN PRN Reason: Insomnia Last Admin: 05/27/21 21:27 Dose: 5 mg Documented by: Time Spent With Patient Time: Total time spent is greater than 50% in coordination of care (as documented) at patient's floor/unit and/or counseling patient: Time with patient: 15 - 24 minutes Quality Stroke Does the patient have a stroke diagnosis?: No VTE Prior VTE?: No VTE Risk Level:: Medical - moderate - high VTE Device Contraindication: N/A - Device Ordered VTE Drug Contraindication: N/A - Med Ordered
[2021-05-28] MEDS: LORazepam 2 MG/ML VIAL 0.5 MG IVPUSH (17:54)
--- NOTE | 2021-05-28 18:44 | PC.NURSE ---
pt experienced nausea/ heart burn w/ sm amt of regurgitated emesis. prn zofran given and MD notified. per MD RN to place NGT for gastric decompression after a prn dose of ativan 0.5mg. Ativan administered and after pt reported feeling calm/ relaxed. this RN attempted x2 with second nurse, in both nares, and all attempts met with resistance. MD notified and will hold off on NGT placement for now. Will cont to monitor and assess and provide prn medication as indicated for nausea and heartburn.
[2021-05-28] MEDS: Famotidine/PF 20 MG/2 ML VIAL IVPUSH (20:33)
[2021-05-29] VITALS (7 sets, daily range): BP systolic 140–157; BP diastolic 72–86; PULSE 98–104; RESP 16–20; TEMP 36.7–37.2; O2SAT 96–97
[2021-05-29] MEDS: Lactated Ringers 1,000 ML 80 ML IVCONT ×2 (01:28→15:28)
[2021-05-29] MEDS: ondansetron HCL 4 MG/2 ML VIAL IVPUSH (01:28)
[2021-05-29] MEDS: Heparin Sodium,Porcine 5,000 UNIT/ML VIAL 5000 UNIT SUBCUT ×2 (08:31→20:44)
[2021-05-29] MEDS: amLODIPine Besylate 5 MG TABLET PO (08:31)
[2021-05-29] MEDS: Atorvastatin Calcium 10 MG TABLET PO (08:31)
[2021-05-29] MEDS: Famotidine/PF 20 MG/2 ML VIAL IVPUSH ×2 (08:34→20:44)
--- NOTE | 2021-05-29 13:15 | PM.PNGS ---
Subjective Subjective Date of Service: 05/29/21 Interval history: He is feeling better this morning. He has passed some flatus and a small bowel movement. Exam and x-rays yesterday were consistent with ileus. Last night, he developed heartburn and reflux symptoms. NG insertion was attempted but could not be completed. He had an episode of emesis following this. This morning, he has no nausea. He reports ongoing incisional discomfort. Physical Exam Vital Signs: Vital Signs: Last Vital Signs Temp 98.1 F 05/29/21 11:41 Pulse 98 05/29/21 11:41 Resp 18 05/29/21 11:41 BP 148/81 H 05/29/21 11:41 Pulse Ox 96 05/29/21 11:41 Body Mass Index 20.0 Resp: Effort & Inspection: normal respiratory effort Auscultation: clear to auscultation bilaterally Cardio: Rate: regular rate Rhythm: regular rhythm GI: Other: Distended but softer than yesterday bowel sounds active, incisions clean dry and intact. No significant tenderness Extrem: General: Yes normal to inspection Objective Data Active Medications Al Hydroxide/Mg Hydroxide (Magnesium Hydrox/Alum Hydrox 30 Ml Oral.Susp) 30 ml PO Q4H PRN PRN Reason: Heartburn Amlodipine Besylate (Amlodipine Besylate 5 Mg Tablet) 5 mg PO DAILY [facility]; Protocol Last Admin: 05/29/21 08:31 Dose: 5 mg Documented by: JERICHO Atorvastatin Calcium (Atorvastatin Calcium 10 Mg Tablet) 10 mg PO DAILY [facility] Last Admin: 05/29/21 08:31 Dose: 10 mg Documented by: JERICHO Diphenhydramine HCl (Diphenhydramine Hcl 50 Mg/Ml Vial) 25 mg IVPUSH Q6H PRN PRN Reason: Itching Famotidine (Famotidine/Pf 20 Mg/2 Ml Vial) 20 mg IVPUSH BID [facility] Last Admin: 05/29/21 08:34 Dose: 20 mg Documented by: JERICHO Heparin Sodium (Porcine) (Heparin Sodium,Porcine 5,000 Unit/Ml Vial) 5,000 unit SUBCUT Q12H [facility] Last Admin: 05/29/21 08:31 Dose: 5,000 unit Documented by: JERICHO Lactated Ringer's (Lr) 1,000 mls @ 80 mls/hr IVCONT .[id number] [facility] Last Admin: 11/14/21 01:28 Dose: 80 mls/hr Documented by: ERIC Acetaminophen (Ofirmev) 1,000 mg in 100 mls @ 400 mls/hr IV Q6H [facility] Last Infusion: 05/29/21 09:31 Dose: 0 mls/hr Documented by: JERICHO Morphine Sulfate (Morphine Sulfate 2 Mg/Ml Cartridge) 4 mg IVPUSH Q4H PRN; Protocol PRN Reason: Pain, Severe (Pain Scale 7-10) Last Admin: 05/28/21 03:21 Dose: 4 mg Documented by: FARHAD Ondansetron HCl (Ondansetron Hcl 4 Mg/2 Ml Vial) 4 mg IVPUSH Q8H PRN PRN Reason: Nausea and Vomiting Last Admin: 05/29/21 01:28 Dose: 4 mg Documented by: ERIC Oxycodone HCl (Oxycodone Hcl Immed Release 5 Mg Tablet) 5 mg PO Q4H PRN PRN Reason: Pain, Moderate (Pain Scale 4-6 Last Admin: 05/27/21 20:36 Dose: 5 mg Documented by: ERIC Oxycodone HCl (Oxycodone Hcl Immed Release 5 Mg Tablet) 10 mg PO Q4H PRN PRN Reason: Pain, Severe (Pain Scale 7-10) Last Admin: 05/26/21 07:53 Dose: 10 mg Documented by: COTEMA Sodium Chloride (0.9 % Sodium Chloride Flush 3 Ml Syringe) 3 ml IVFLUSH QSHIFT [facility] Last Admin: 05/29/21 08:29 Dose: Not Given Documented by: JERICHO Non-Admin Reason: IV Running Tamsulosin HCl (Tamsulosin Hcl 0.4 Mg Capsule) 0.4 mg PO BEDTIME [facility] Last Admin: 05/28/21 20:55 Dose: Not Given Documented by: ERIC Non-Admin Reason: Nausea Zolpidem Tartrate (Zolpidem Tartrate 5 Mg Tablet) 5 mg PO BEDTIME PRN PRN Reason: Insomnia Last Admin: 05/27/21 21:27 Dose: 5 mg Documented by: ERIC Labs CBC & Chem 7: 05/28/21 10:56 05/28/21 10:56 Microbiology Microbiology Results: Microbiology 05/28/21 15:20 Urine Culture - Preliminary Urine clean catch - Clean Catch Midstream Gram negative mary Procedures Date of Service Date of Service: 05/29/21 Progress Note: A&P Assessment and plan (1) S/P right colectomy: Status: Acute Assessment and Plan: 80-year-old male now day 5 status post hand assisted laparoscopic right hemicolectomy for carcinoma of the cecum. Findings yesterday were consistent with postoperative ileus, but that appears to be resolving today. Will continue NPO and on IV fluids for now but may be able to resume clear liquid diet later today. Fall Risk Details Current Medications: Current Medications Al Hydroxide/Mg Hydroxide (Magnesium Hydrox/Alum Hydrox 30 Ml Oral.Susp) 30 ml PO Q4H PRN PRN Reason: Heartburn Amlodipine Besylate (Amlodipine Besylate 5 Mg Tablet) 5 mg PO DAILY [facility]; Protocol Last Admin: 05/29/21 08:31 Dose: 5 mg Documented by: Atorvastatin Calcium (Atorvastatin Calcium 10 Mg Tablet) 10 mg PO DAILY [facility] Last Admin: 05/29/21 08:31 Dose: 10 mg Documented by: Diphenhydramine HCl (Diphenhydramine Hcl 50 Mg/Ml Vial) 25 mg IVPUSH Q6H PRN PRN Reason: Itching Famotidine (Famotidine/Pf 20 Mg/2 Ml Vial) 20 mg IVPUSH BID [facility] Last Admin: 05/29/21 08:34 Dose: 20 mg Documented by: Heparin Sodium (Porcine) (Heparin Sodium,Porcine 5,000 Unit/Ml Vial) 5,000 unit SUBCUT Q12H [facility] Last Admin: 05/29/21 08:31 Dose: 5,000 unit Documented by: Lactated Ringer's (Lr) 1,000 mls @ 80 mls/hr IVCONT .[id number] [facility] Last Admin: 05/29/21 01:28 Dose: 80 mls/hr Documented by: Acetaminophen (Ofirmev) 1,000 mg in 100 mls @ 400 mls/hr IV Q6H [facility] Last Infusion: 05/29/21 09:31 Dose: Infused Documented by: Morphine Sulfate (Morphine Sulfate 2 Mg/Ml Cartridge) 4 mg IVPUSH Q4H PRN; Protocol PRN Reason: Pain, Severe (Pain Scale 7-10) Last Admin: 05/28/21 03:21 Dose: 4 mg Documented by: Ondansetron HCl (Ondansetron Hcl 4 Mg/2 Ml Vial) 4 mg IVPUSH Q8H PRN PRN Reason: Nausea and Vomiting Last Admin: 05/29/21 01:28 Dose: 4 mg Documented by: Oxycodone HCl (Oxycodone Hcl Immed Release 5 Mg Tablet) 5 mg PO Q4H PRN PRN Reason: Pain, Moderate (Pain Scale 4-6 Last Admin: 05/27/21 20:36 Dose: 5 mg Documented by: Oxycodone HCl (Oxycodone Hcl Immed Release 5 Mg Tablet) 10 mg PO Q4H PRN PRN Reason: Pain, Severe (Pain Scale 7-10) Last Admin: 05/26/21 07:53 Dose: 10 mg Documented by: Sodium Chloride (0.9 % Sodium Chloride Flush 3 Ml Syringe) 3 ml IVFLUSH [facility] Last Admin: 05/29/21 08:29 Dose: Not Given Documented by: Tamsulosin HCl (Tamsulosin Hcl 0.4 Mg Capsule) 0.4 mg PO BEDTIME [facility] Last Admin: 05/28/21 20:55 Dose: Not Given Documented by: Zolpidem Tartrate (Zolpidem Tartrate 5 Mg Tablet) 5 mg PO BEDTIME PRN PRN Reason: Insomnia Last Admin: 05/27/21 21:27 Dose: 5 mg Documented by: Time Spent With Patient Time: Total time spent is greater than 50% in coordination of care (as documented) at patient's floor/unit and/or counseling patient: Time with patient: 15 - 24 minutes Quality Stroke Does the patient have a stroke diagnosis?: No VTE Prior VTE?: No VTE Risk Level:: Medical - moderate - high VTE Device Contraindication: N/A - Device Ordered VTE Drug Contraindication: N/A - Med Ordered
[2021-05-29] MEDS: Tamsulosin HCL 0.4 MG CAPSULE PO (20:48)
[2021-05-29] MEDS: Zolpidem Tartrate 5 MG TABLET PO (22:12)
[2021-05-30] VITALS (9 sets, daily range): BP systolic 123–169; BP diastolic 59–85; PULSE 80–111; RESP 17–20; TEMP 36.2–37; O2SAT 97–98
[2021-05-30] MEDS: Lactated Ringers 1,000 ML 80 ML IVCONT ×2 (02:30→15:13)
--- NOTE | 2021-05-30 07:47 | P.PNGS_ITS ---
Subjective Subjective Date of Service: 05/30/21 <Tangela Geronimo PA-C - Last Filed: 05/30/21 07:51> 05/30/21 <Nadeem Saldaña MD - Last Filed: 05/30/21 09:44> Interval history: Developed ileus over the weekend. NGT insertion attempted but unsuccessful. He began passing large amount of flatus and a liquid BM yesterday. Denies further nausea and vomiting. Reports he is hungry. Has been OOB and ambulating with walker. <Tangela Geronimo PA-C - Last Filed: 05/30/21 07:51> Physical Exam Vital Signs: Vital Signs: Last Vital Signs Temp 98.2 F 05/30/21 04:00 Pulse 98 05/30/21 04:00 Resp 20 05/30/21 04:00 BP 146/80 H 05/30/21 04:00 Pulse Ox 97 05/30/21 04:00 Body Mass Index 20.0 <Tangela Geronimo PA-C - Last Filed: 05/30/21 07:51> Const: General: comfortable, no acute distress and alert <Tangela Geronimo PA-C - Last Filed: 05/30/21 07:51> Resp: Effort & Inspection: normal respiratory effort <Tangela Geronimo PA-C - Last Filed: 05/30/21 07:51> GI: Inspection: Yes distended and Yes incision (erythema surrounding midline incision, ecchymosis improved) <Tangela Geronimo PA-C - Last Filed: 05/30/21 07:51> Palpation (GI): Soft to palpation, Tenderness to palpation present (GI) (mild) and no guarding <Tangela Geronimo PA-C - Last Filed: 05/30/21 07:51> Percussion: Yes tympanic to percussion <ERMA Mak Last Filed: 05/30/21 07:51> Skin: General skin exam: no rashes or lesions noted <Tangela Geronimo PA-C - Last Filed: 05/30/21 07:51> Extrem: General: Yes no clubbing, cyanosis or edema <Tangela Geronimo PA-C - Last Filed: 05/30/21 07:51> Objective Data Active Medications Al Hydroxide/Mg Hydroxide (Magnesium Hydrox/Alum Hydrox 30 Ml Oral.Susp) 30 ml PO Q4H PRN PRN Reason: Heartburn Amlodipine Besylate (Amlodipine Besylate 5 Mg Tablet) 5 mg PO DAILY [facility]; Protocol Last Admin: 05/29/21 08:31 Dose: 5 mg Documented by: JERICHO Atorvastatin Calcium (Atorvastatin Calcium 10 Mg Tablet) 10 mg PO DAILY [facility] Last Admin: 05/29/21 08:31 Dose: 10 mg Documented by: JERICHO Diphenhydramine HCl (Diphenhydramine Hcl 50 Mg/Ml Vial) 25 mg IVPUSH Q6H PRN PRN Reason: Itching Famotidine (Famotidine/Pf 20 Mg/2 Ml Vial) 20 mg IVPUSH BID [facility] Last Admin: 05/29/21 20:44 Dose: 20 mg Documented by: MARTHA Heparin Sodium (Porcine) (Heparin Sodium,Porcine 5,000 Unit/Ml Vial) 5,000 unit SUBCUT Q12H [facility] Last Admin: 05/29/21 20:44 Dose: 5,000 unit Documented by: MARTHA Lactated Ringer's (Lr) 1,000 mls @ 80 mls/hr IVCONT .[id number] [facility] Last Admin: 05/30/21 02:30 Dose: 80 mls/hr Documented by: MARTHA Acetaminophen (Ofirmev) 1,000 mg in 100 mls @ 400 mls/hr IV Q6H [facility] Last Infusion: 05/30/21 02:54 Dose: 0 mls/hr Documented by: MARTHA Morphine Sulfate (Morphine Sulfate 2 Mg/Ml Cartridge) 4 mg IVPUSH Q4H PRN; Protocol PRN Reason: Pain, Severe (Pain Scale 7-10) Last Admin: 05/28/21 03:21 Dose: 4 mg Documented by: FARHAD Ondansetron HCl (Ondansetron Hcl 4 Mg/2 Ml Vial) 4 mg IVPUSH Q8H PRN PRN Reason: Nausea and Vomiting Last Admin: 05/29/21 01:28 Dose: 4 mg Documented by: ERIC Oxycodone HCl (Oxycodone Hcl Immed Release 5 Mg Tablet) 5 mg PO Q4H PRN PRN Reason: Pain, Moderate (Pain Scale 4-6 Last Admin: 05/27/21 20:36 Dose: 5 mg Documented by: ODRISSangeeta Oxycodone HCl (Oxycodone Hcl Immed Release 5 Mg Tablet) 10 mg PO Q4H PRN PRN Reason: Pain, Severe (Pain Scale 7-10) Last Admin: 05/26/21 07:53 Dose: 10 mg Documented by: COTVICKY Sodium Chloride (0.9 % Sodium Chloride Flush 3 Ml Syringe) 3 ml [facility] Last Admin: 05/30/21 00:17 Dose: Not Given Documented by: MARTHA Non-Admin Reason: IV Running Tamsulosin HCl (Tamsulosin Hcl 0.4 Mg Capsule) 0.4 mg PO BEDTIME [facility] Last Admin: 05/29/21 20:48 Dose: 0.4 mg Documented by: MARTHA Zolpidem Tartrate (Zolpidem Tartrate 5 Mg Tablet) 5 mg PO BEDTIME PRN PRN Reason: Insomnia Last Admin: 05/29/21 22:12 Dose: 5 mg Documented by: MARTHA <Tangela Geronimo PA-C - Last Filed: 05/30/21 07:51> Labs CBC & Chem 7: : 05/28/21 10:56 05/28/21 10:56 <Tangela Geronimo PA-C - Last Filed: 05/30/21 07:51> Microbiology Microbiology Results: Microbiology 05/28/21 15:20 Urine Culture - Preliminary Urine clean catch - Clean Catch Midstream Gram negative mary <Tangela Geronimo PA-C - Last Filed: 05/30/21 07:51> Procedures Date of Service Date of Service: 05/30/21 <Tangela Geronimo PA-C - Last Filed: 05/30/21 07:51> Progress Note: A&P Assessment and plan (1) S/P right colectomy: Status: Acute <Tangela Geronimo PA-C - Last Filed: 05/30/21 07:51> Assessment and Plan: Was distended over the weekend Now feels much better Passing flatus, has liquid stools Hungry Okay to restart clear liquids and slowly advance as tolerated Encourage ambulation Exam benign Seen and examined - agree with GILBERT Geronimo <Nadeem Saldaña MD - Last Filed: 05/30/21 09:44> (2) Cecum mass: Status: Acute <Tangela Geronimo PA-C - Last Filed: 05/30/21 07:51> Assessment and Plan: 80-year-old male now day 6 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 Findings over the weekend consistent with postoperative ileus, but that appears to be resolved.? Will advance to clear liquids. Encouraged OOB/ambulation. Start empirically on PO keflex for incisional erythema. Colon, right, hemicolectomy: - Adenocarcinoma, moderately differentiated with focal mucinous features, invasive into subserosa; margins negative. - 15 lymph nodes negative for metastatic carcinoma. - Tubular adenoma with low grade dysplasia, incidental. - Vermiform appendix within normal limits. - Separate loop of bowel within normal limits. - AJCC Stage (8th ed.) pT3 N0 <Tangela Geronimo PA-C - Last Filed: 05/30/21 07:51> Fall Risk Details Current Medications: Current Medications Al Hydroxide/Mg Hydroxide (Magnesium Hydrox/Alum Hydrox 30 Ml Oral.Susp) 30 ml PO Q4H PRN PRN Reason: Heartburn Amlodipine Besylate (Amlodipine Besylate 5 Mg Tablet) 5 mg PO DAILY [facility]; Protocol Last Admin: 05/29/21 08:31 Dose: 5 mg Documented by: Atorvastatin Calcium (Atorvastatin Calcium 10 Mg Tablet) 10 mg PO DAILY [facility] Last Admin: 05/29/21 08:31 Dose: 10 mg Documented by: Diphenhydramine HCl (Diphenhydramine Hcl 50 Mg/Ml Vial) 25 mg IVPUSH Q6H PRN PRN Reason: Itching Famotidine (Famotidine/Pf 20 Mg/2 Ml Vial) 20 mg IVPUSH BID [facility] Last Admin: 05/29/21 20:44 Dose: 20 mg Documented by: Heparin Sodium (Porcine) (Heparin Sodium,Porcine 5,000 Unit/Ml Vial) 5,000 unit SUBCUT Q12H [facility] Last Admin: 05/29/21 20:44 Dose: 5,000 unit Documented by: Lactated Ringer's (Lr) 1,000 mls @ 80 mls/hr IVCONT .[id number] [facility] Last Admin: 05/30/21 02:30 Dose: 80 mls/hr Documented by: Acetaminophen (Ofirmev) 1,000 mg in 100 mls @ 400 mls/hr IV Q6H [facility] Last Infusion: 05/30/21 02:54 Dose: Infused Documented by: Morphine Sulfate (Morphine Sulfate 2 Mg/Ml Cartridge) 4 mg IVPUSH Q4H PRN; Protocol PRN Reason: Pain, Severe (Pain Scale 7-10) Last Admin: 05/28/21 03:21 Dose: 4 mg Documented by: Ondansetron HCl (Ondansetron Hcl 4 Mg/2 Ml Vial) 4 mg IVPUSH Q8H PRN PRN Reason: Nausea and Vomiting Last Admin: 05/29/21 01:28 Dose: 4 mg Documented by: Oxycodone HCl (Oxycodone Hcl Immed Release 5 Mg Tablet) 5 mg PO Q4H PRN PRN Reason: Pain, Moderate (Pain Scale 4-6 Last Admin: 05/27/21 20:36 Dose: 5 mg Documented by: Oxycodone HCl (Oxycodone Hcl Immed Release 5 Mg Tablet) 10 mg PO Q4H PRN PRN Reason: Pain, Severe (Pain Scale 7-10) Last Admin: 05/26/21 07:53 Dose: 10 mg Documented by: Sodium Chloride (0.9 % Sodium Chloride Flush 3 Ml Syringe) 3 ml [facility]USH [facility] Last Admin: 05/30/21 00:17 Dose: Not Given Documented by: Tamsulosin HCl (Tamsulosin Hcl 0.4 Mg Capsule) 0.4 mg PO BEDTIME [facility] Last Admin: 05/29/21 20:48 Dose: 0.4 mg Documented by: Zolpidem Tartrate (Zolpidem Tartrate 5 Mg Tablet) 5 mg PO BEDTIME PRN PRN Reason: Insomnia Last Admin: 05/29/21 22:12 Dose: 5 mg Documented by: <Tangela Geronimo PA-C - Last Filed: 05/30/21 07:51> Time Spent With Patient Time: Total time spent is greater than 50% in coordination of care (as documented) at patient's floor/unit and/or counseling patient: <Tangela Geronimo PA-C - Last Filed: 05/30/21 07:51> Time with patient: 15 - 24 minutes <Tangela Geronimo PA-C - Last Filed: 05/30/21 07:51> Quality Stroke Does the patient have a stroke diagnosis?: No <Tangela Geronimo PA-C - Last Filed: 05/30/21 07:51> VTE Prior VTE?: No <Tangela Geronimo PA-C - Last Filed: 05/30/21 07:51> VTE Risk Level:: Medical - moderate - high <Tangela Geronimo PA-C - Last Filed: 05/30/21 07:51> VTE Device Contraindication: N/A - Device Ordered <Tangela Geronimo PA-C - Last Filed: 05/30/21 07:51> VTE Drug Contraindication: N/A - Med Ordered <Tangela Geronimo PA-C - Last Filed: 05/30/21 07:51>
[2021-05-30] MEDS: cephALEXin 500 MG CAPSULE PO ×2 (09:04→20:22)
[2021-05-30] MEDS: amLODIPine Besylate 5 MG TABLET PO (09:04)
[2021-05-30] MEDS: Atorvastatin Calcium 10 MG TABLET PO (09:06)
[2021-05-30] MEDS: Heparin Sodium,Porcine 5,000 UNIT/ML VIAL 5000 UNIT SUBCUT ×2 (09:06→20:37)
[2021-05-30] MEDS: Famotidine/PF 20 MG/2 ML VIAL IVPUSH ×2 (09:09→20:21)
[2021-05-30] MEDS: 0.9 % Sodium Chloride Flush 3 ML SYRINGE IVFLUSH (09:28)
[2021-05-30] MEDS: oxyCODONE HCl Immed Release 5 MG TABLET 10 MG PO (09:38)
--- NOTE | 2021-05-30 13:53 | MHC.CM.PN ---
nurse manager care management note electronic medical record reviewed. s/p day 6 hand assist laparoscopic r-hemicolectomy for carcinoma of the cecum, over weekend developed post op ileus attempts to insert ng-tub unsuccessful. continued iv fluids, iv/po analgeics, passing flatus and had 1 liquid stool 05/30/21, plan to start clear liquids and advance slowly , started on po Keflex for incisional erythemaa discharge plan home with nsg and home physical thearpy will need front wheeled walker
[2021-05-30] MEDS: oxyCODONE HCl Immed Release 5 MG TABLET PO ×2 (14:04→20:22)
--- NOTE | 2021-05-30 17:31 | PM.EVENT ---
Event Note Date of Service: 05/30/21 Event Note: He says he continues to feel well Passing flatus Denies significant pain Says has ambulated 3 times Denies nausea or vomiting Abdomen remained soft and benign hopefully, we can advance his diet tomorrow.
[2021-05-30] MEDS: Tamsulosin HCL 0.4 MG CAPSULE PO (20:22)
[2021-05-31] VITALS (8 sets, daily range): BP systolic 126–159; BP diastolic 64–94; PULSE 73–107; RESP 16–18; TEMP 36.4–37.1; O2SAT 98–99
[2021-05-31] MEDS: Lactated Ringers 1,000 ML 80 ML IVCONT (03:05)
[2021-05-31] MEDS: Atorvastatin Calcium 10 MG TABLET PO (08:33)
[2021-05-31] MEDS: amLODIPine Besylate 5 MG TABLET PO (08:33)
[2021-05-31] MEDS: Famotidine/PF 20 MG/2 ML VIAL IVPUSH ×2 (08:34→20:30)
[2021-05-31] MEDS: cephALEXin 500 MG CAPSULE PO ×2 (08:34→20:30)
[2021-05-31] MEDS: Heparin Sodium,Porcine 5,000 UNIT/ML VIAL 5000 UNIT SUBCUT ×2 (08:36→20:30)
[2021-05-31] MEDS: 0.9 % Sodium Chloride Flush 3 ML SYRINGE IVFLUSH ×2 (08:37→17:00)
--- NOTE | 2021-05-31 08:53 | PM.PNGS ---
Subjective Subjective Date of Service: 05/31/21 <Tangela Geronimo PA-C - Last Filed: 05/31/21 08:57> 05/31/21 <Nadeem Saldaña MD - Last Filed: 05/31/21 16:09> Interval history: Was doing well yesterday but developed sharp left sided pain yesterday. Now resolved and feeling better. Has some mild crampy gas pains. Tolerating liquids and denies nausea/vomiting. Continues to pass some flatus. Was OOB and ambulated 3x yesterday. <Tangela Geronimo PA-C - Last Filed: 05/31/21 08:57> Physical Exam Vital Signs: Vital Signs: Last Vital Signs Temp 98.2 F 05/31/21 07:08 Pulse 103 H 05/31/21 08:33 Resp 16 05/31/21 07:08 BP 149/79 H 05/31/21 08:33 Pulse Ox 98 05/31/21 07:08 Body Mass Index 20.0 <Tangela Geronimo PA-C - Last Filed: 05/31/21 08:57> Const: General: comfortable, no acute distress and alert <Tangela Geronimo PA-C - Last Filed: 05/31/21 08:57> Orientation/consciousness: patient oriented x3 <ERMA Mak Last Filed: 05/31/21 08:57> Resp: Effort & Inspection: normal respiratory effort <Tangela Geronimo PA-C - Last Filed: 05/31/21 08:57> GI: Inspection: Yes distended and Yes incision (erythema persists) <Tangela Geronimo PA-C - Last Filed: 05/31/21 08:57> Palpation (GI): Soft to palpation and Tenderness to palpation present (GI) (mild, incisional) <ERMA Mak Last Filed: 05/31/21 08:57> Percussion: Yes tympanic to percussion <ERMA Mak Last Filed: 05/31/21 08:57> Skin: General skin exam: no rashes or lesions noted <ERMA Mak Last Filed: 05/31/21 08:57> Neuro: General: patient oriented x3 <Tangela Geronimo PA-C - Last Filed: 05/31/21 08:57> Extrem: General: Yes no clubbing, cyanosis or edema <Tangela Geronimo PA-C - Last Filed: 05/31/21 08:57> Objective Data Active Medications Al Hydroxide/Mg Hydroxide (Magnesium Hydrox/Alum Hydrox 30 Ml Oral.Susp) 30 ml PO Q4H PRN PRN Reason: Heartburn Amlodipine Besylate (Amlodipine Besylate 5 Mg Tablet) 5 mg PO DAILY [facility] [place]; Protocol Last Admin: 05/31/21 08:33 Dose: 5 mg Documented by: MADELIN Atorvastatin Calcium (Atorvastatin Calcium 10 Mg Tablet) 10 mg PO DAILY [facility] [place] Last Admin: 05/31/21 08:33 Dose: 10 mg Documented by: MADELIN Cephalexin HCl (Cephalexin 500 Mg Capsule) 500 mg PO Q12H [facility] [place] Last Admin: 05/31/21 08:34 Dose: 500 mg Documented by: MADELIN Diphenhydramine HCl (Diphenhydramine Hcl 50 Mg/Ml Vial) 25 mg IVPUSH Q6H PRN PRN Reason: Itching Famotidine (Famotidine/Pf 20 Mg/2 Ml Vial) 20 mg IVPUSH BID [facility] Last Admin: 05/31/21 08:34 Dose: 20 mg Documented by: MADELIN Heparin Sodium (Porcine) (Heparin Sodium,Porcine 5,000 Unit/Ml Vial) 5,000 unit SUBCUT Q12H [facility] Last Admin: 05/31/21 08:36 Dose: 5,000 unit Documented by: MADELIN Lactated Ringer's (Lr) 1,000 mls @ 80 mls/hr IVCONT .[id number] [facility] [place] Last Admin: 05/31/21 03:05 Dose: 80 mls/hr Documented by: GAGE Acetaminophen (Ofirmev) 1,000 mg in 100 mls @ 400 mls/hr IV Q6H [facility] Last Admin: 05/31/21 08:34 Dose: 400 mls/hr Documented by: MADELIN Morphine Sulfate (Morphine Sulfate 2 Mg/Ml Cartridge) 4 mg IVPUSH Q4H PRN; Protocol PRN Reason: Pain, Severe (Pain Scale 7-10) Last Admin: 05/28/21 03:21 Dose: 4 mg Documented by: FARHAD Ondansetron HCl (Ondansetron Hcl 4 Mg/2 Ml Vial) 4 mg IVPUSH Q8H PRN PRN Reason: Nausea and Vomiting Last Admin: 05/29/21 01:28 Dose: 4 mg Documented by: ERIC Oxycodone HCl (Oxycodone Hcl Immed Release 5 Mg Tablet) 5 mg PO Q4H PRN PRN Reason: Pain, Moderate (Pain Scale 4-6 Last Admin: 05/30/21 20:22 Dose: 5 mg Documented by: GAGE Oxycodone HCl (Oxycodone Hcl Immed Release 5 Mg Tablet) 10 mg PO Q4H PRN PRN Reason: Pain, Severe (Pain Scale 7-10) Last Admin: 05/30/21 09:38 Dose: 10 mg Documented by: LASHAWN Sodium Chloride (0.9 % Sodium Chloride Flush 3 Ml Syringe) 3 ml IVFLUSH [facility] Last Admin: 05/31/21 08:37 Dose: 3 ml Documented by: MADELIN Tamsulosin HCl (Tamsulosin Hcl 0.4 Mg Capsule) 0.4 mg PO BEDTIME [facility] [place] Last Admin: 05/30/21 20:22 Dose: 0.4 mg Documented by: GAGE Zolpidem Tartrate (Zolpidem Tartrate 5 Mg Tablet) 5 mg PO BEDTIME PRN PRN Reason: Insomnia Last Admin: 05/29/21 22:12 Dose: 5 mg Documented by: MARTHA <Tangela Geronimo PA-C - Last Filed: 05/31/21 08:57> Labs CBC & Chem 7: : 05/28/21 10:56 05/28/21 10:56 <Tangela Geronimo PA-C - Last Filed: 05/31/21 08:57> Microbiology Microbiology Results: Microbiology 05/28/21 15:20 Urine Culture - Final Urine clean catch - Clean Catch Midstream Pseudomonas aeruginosa Enterococcus faecalis <Tangela Geronimo PA-C - Last Filed: 05/31/21 08:57> Procedures Date of Service Date of Service: 05/31/21 <Tangela Geronimo PA-C - Last Filed: 05/31/21 08:57> Progress Note: A&P Assessment and plan (1) S/P right colectomy: Status: Acute <Tangela Geronimo PA-C - Last Filed: 05/31/21 08:57> (2) Cecum mass: Status: Acute <Tangela Geronimo PA-C - Last Filed: 05/31/21 08:57> (3) Adenocarcinoma of cecum: Status: Acute <Tangela Geronimo PA-C - Last Filed: 05/31/21 08:57> Assessment and Plan: He feels well Denies significant pain Had flatus yesterday, denies flatus this morning Has been ambulating well Looks good otherwise Abdomen soft, mildly distended Await more consistent flatus before advancing diet Seen and examined - I agree with GILBERT Geronimo <Nadeem Saldaña MD - Last Filed: 05/31/21 16:09> Assessment and Plan: ?80-year-old male now day 7 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 Had some sharp pains last night but continues to pass some flatus. Abd- softly distended, tympanitic. Will continue clear liquids for now. Will reassess later today for possible advancement of diet. Encouraged OOB/ambulation. Started empirically on PO keflex for incisional erythema. Path revealed adenoCA. Outpatient heme/onc consult. <Tangela Geronimo PA-C - Last Filed: 05/31/21 08:57> Fall Risk Details Current Medications: Current Medications Al Hydroxide/Mg Hydroxide (Magnesium Hydrox/Alum Hydrox 30 Ml Oral.Susp) 30 ml PO Q4H PRN PRN Reason: Heartburn Amlodipine Besylate (Amlodipine Besylate 5 Mg Tablet) 5 mg PO DAILY [facility] [place]; Protocol Last Admin: 05/31/21 08:33 Dose: 5 mg Documented by: Atorvastatin Calcium (Atorvastatin Calcium 10 Mg Tablet) 10 mg PO DAILY [facility] [place] Last Admin: 05/31/21 08:33 Dose: 10 mg Documented by: Cephalexin HCl (Cephalexin 500 Mg Capsule) 500 mg PO Q12H [facility] [place] Last Admin: 05/31/21 08:34 Dose: 500 mg Documented by: Diphenhydramine HCl (Diphenhydramine Hcl 50 Mg/Ml Vial) 25 mg IVPUSH Q6H PRN PRN Reason: Itching Famotidine (Famotidine/Pf 20 Mg/2 Ml Vial) 20 mg IVPUSH BID [facility] [place] Last Admin: 05/31/21 08:34 Dose: 20 mg Documented by: Heparin Sodium (Porcine) (Heparin Sodium,Porcine 5,000 Unit/Ml Vial) 5,000 unit SUBCUT Q12H [facility] [place] Last Admin: 05/31/21 08:36 Dose: 5,000 unit Documented by: Lactated Ringer's (Lr) 1,000 mls @ 80 mls/hr IVCONT .[id number] [facility] [place] Last Admin: 05/31/21 03:05 Dose: 80 mls/hr Documented by: Acetaminophen (Ofirmev) 1,000 mg in 100 mls @ 400 mls/hr IV Q6H [facility] [place] Last Admin: 05/31/21 08:34 Dose: 400 mls/hr Documented by: Morphine Sulfate (Morphine Sulfate 2 Mg/Ml Cartridge) 4 mg IVPUSH Q4H PRN; Protocol PRN Reason: Pain, Severe (Pain Scale 7-10) Last Admin: 05/28/21 03:21 Dose: 4 mg Documented by: Ondansetron HCl (Ondansetron Hcl 4 Mg/2 Ml Vial) 4 mg IVPUSH Q8H PRN PRN Reason: Nausea and Vomiting Last Admin: 05/29/21 01:28 Dose: 4 mg Documented by: Oxycodone HCl (Oxycodone Hcl Immed Release 5 Mg Tablet) 5 mg PO Q4H PRN PRN Reason: Pain, Moderate (Pain Scale 4-6 Last Admin: 05/30/21 20:22 Dose: 5 mg Documented by: Oxycodone HCl (Oxycodone Hcl Immed Release 5 Mg Tablet) 10 mg PO Q4H PRN PRN Reason: Pain, Severe (Pain Scale 7-10) Last Admin: 05/30/21 09:38 Dose: 10 mg Documented by: Sodium Chloride (0.9 % Sodium Chloride Flush 3 Ml Syringe) 3 ml IVFLUSH QSHIFT [facility] Last Admin: 05/31/21 08:37 Dose: 3 ml Documented by: Tamsulosin HCl (Tamsulosin Hcl 0.4 Mg Capsule) 0.4 mg PO BEDTIME [facility] Last Admin: 05/30/21 20:22 Dose: 0.4 mg Documented by: Zolpidem Tartrate (Zolpidem Tartrate 5 Mg Tablet) 5 mg PO BEDTIME PRN PRN Reason: Insomnia Last Admin: 05/29/21 22:12 Dose: 5 mg Documented by: <Tangela Geronimo PA-C - Last Filed: 05/31/21 08:57> Time Spent With Patient Time: Total time spent is greater than 50% in coordination of care (as documented) at patient's floor/unit and/or counseling patient: <Tangela Geronimo PA-C - Last Filed: 05/31/21 08:57> Time with patient: 15 - 24 minutes <Tangela Geronimo PA-C - Last Filed: 05/31/21 08:57> Quality Stroke Does the patient have a stroke diagnosis?: No <Tangela Geronimo PA-C - Last Filed: 05/31/21 08:57> VTE Prior VTE?: No <Tangela Geronimo PA-C - Last Filed: 05/31/21 08:57> VTE Risk Level:: Medical - moderate - high <ERMA Mak Last Filed: 05/31/21 08:57> VTE Device Contraindication: N/A - Device Ordered <ERMA Mak Last Filed: 05/31/21 08:57> VTE Drug Contraindication: N/A - Med Ordered <ERMA Mak Last Filed: 05/31/21 08:57>
--- NOTE | 2021-05-31 12:29 | MHC.CM.PN ---
NURSE DIRECTOR CRITICAL CARE NOTE S/P RIGHT COLECTOMY CECUM MASS ADENO OF CECUM, S/P POST OP ILEUS OVER THE WEEKEND, (PATIENT HAD DEVELOPED SHARP LEFT SIDED PAIN ON 05/29 21 RESOLVED NOW STILL HAS SOME MILD CRAMPING GAS PAINS, PER DOCUMENTATION ABDOMEN SOFT BUT DISTENDED TYMPANITIC , TOLERATING LIQUID DIET AND DENIES ANY FURTHER NAUSEA RO EMESIS, CONTINUES TO PASS FLATUS ) PLAN CONINUTE LIQUIDS DIET , SURGEON TO REASS LATER TODAY AND MAY ADVANCE DIET , ON PO KEFLEX FOR INCISIONAL ERYTHEMIA ON PO ANALGEICS FOR PAIN MANAGEMENT, DISCHARGE PLAN HOME WITH NEW REFERRAL FOR THE [facility] FOR [facility] (POST OP ASSESSMENT ) AND HOME PHYSICAL THEARPY TRANSPORTATION PATIENT TO SELF ARRANGE WITH FAMILY PCP BRITTANY LOONEY PATIENT TO CALL [facility] DISCHARGE FOLLOW UP SURGICAL FOLLOW UP PER DISCHARGE INSTRUCTIONS
--- NOTE | 2021-05-31 16:10 | PM.EVENT ---
Event Note Date of Service: 05/31/21 Event Note: Feels well Has has been ambulating Past seeing flatus today Denies significant pain Abdomen is soft, mildly distended Clinically doing well Encourage ambulation Hope to advance diet once flatus more consistent
[2021-05-31] MEDS: Dextrose 5 % and 0.9 % NaCl 1,000 ML 60 ML IVCONT (16:57)
[2021-05-31] MEDS: Tamsulosin HCL 0.4 MG CAPSULE PO (20:30)
[2021-05-31] MEDS: oxyCODONE HCl Immed Release 5 MG TABLET PO (20:31)
[2021-06-01] VITALS (9 sets, daily range): BP systolic 129–156; BP diastolic 66–82; PULSE 76–99; RESP 16–20; TEMP 36.6–37; O2SAT 98–99
[2021-06-01] MEDS: Famotidine/PF 20 MG/2 ML VIAL IVPUSH ×2 (08:04→21:39)
[2021-06-01] MEDS: Heparin Sodium,Porcine 5,000 UNIT/ML VIAL 5000 UNIT SUBCUT ×2 (08:04→21:37)
[2021-06-01] MEDS: cephALEXin 500 MG CAPSULE PO ×2 (08:04→21:37)
[2021-06-01] MEDS: Atorvastatin Calcium 10 MG TABLET PO (08:04)
[2021-06-01] MEDS: amLODIPine Besylate 5 MG TABLET PO (08:07)
--- NOTE | 2021-06-01 09:06 | PM.PNGS ---
Subjective Subjective Date of Service: 06/02/21 Interval history: Feels well today Says he had a good night Passing flatus Denies significant pain Physical Exam Vital Signs: Vital Signs: Last Vital Signs Temp 98.6 F 06/01/21 08:00 Pulse 98 06/01/21 08:07 Resp 16 06/01/21 08:00 BP 141/71 H 06/01/21 08:07 Pulse Ox 99 06/01/21 08:00 Body Mass Index 20.0 Const: General: comfortable and no acute distress Resp: Effort & Inspection: normal respiratory effort Cardio: Rate: regular rate GI: Palpation (GI): Soft to palpation, not firm and no guarding Objective Data Active Medications Al Hydroxide/Mg Hydroxide (Magnesium Hydrox/Alum Hydrox 30 Ml Oral.Susp) 30 ml PO Q4H PRN PRN Reason: Heartburn Amlodipine Besylate (Amlodipine Besylate 5 Mg Tablet) 5 mg PO DAILY [facility]; Protocol Last Admin: 06/01/21 08:07 Dose: 5 mg Documented by: ANTHONY Atorvastatin Calcium (Atorvastatin Calcium 10 Mg Tablet) 10 mg PO DAILY [facility] Last Admin: 06/01/21 08:04 Dose: 10 mg Documented by: ANTHONY Cephalexin HCl (Cephalexin 500 Mg Capsule) 500 mg PO Q12H [facility] Last Admin: 06/01/21 08:04 Dose: 500 mg Documented by: ANTHONY Diphenhydramine HCl (Diphenhydramine Hcl 50 Mg/Ml Vial) 25 mg IVPUSH Q6H PRN PRN Reason: Itching Famotidine (Famotidine/Pf 20 Mg/2 Ml Vial) 20 mg IVPUSH BID [facility] Last Admin: 06/01/21 08:04 Dose: 20 mg Documented by: ANTHONY Heparin Sodium (Porcine) (Heparin Sodium,Porcine 5,000 Unit/Ml Vial) 5,000 unit SUBCUT Q12H [facility] Last Admin: 06/01/21 08:04 Dose: 5,000 unit Documented by: ANTHONY Dextrose/Sodium Chloride (D5ns) 1,000 mls @ 60 mls/hr IVCONT .[id number] [facility] Last Admin: 06/01/21 08:33 Dose: Not Given Documented by: COTEMA Non-Admin Reason: IV Running Morphine Sulfate (Morphine Sulfate 2 Mg/Ml Cartridge) 4 mg IVPUSH Q4H PRN; Protocol PRN Reason: Pain, Severe (Pain Scale 7-10) Last Admin: 05/28/21 03:21 Dose: 4 mg Documented by: FARHAD Ondansetron HCl (Ondansetron Hcl 4 Mg/2 Ml Vial) 4 mg IVPUSH Q8H PRN PRN Reason: Nausea and Vomiting Last Admin: 05/29/21 01:28 Dose: 4 mg Documented by: ERIC Oxycodone HCl (Oxycodone Hcl Immed Release 5 Mg Tablet) 5 mg PO Q4H PRN PRN Reason: Pain, Moderate (Pain Scale 4-6 Last Admin: 05/31/21 20:31 Dose: 5 mg Documented by: ERIC Oxycodone HCl (Oxycodone Hcl Immed Release 5 Mg Tablet) 10 mg PO Q4H PRN PRN Reason: Pain, Severe (Pain Scale 7-10) Last Admin: 05/30/21 09:38 Dose: 10 mg Documented by: LASHAWN Sodium Chloride (0.9 % Sodium Chloride Flush 3 Ml Syringe) 3 ml IVFLUSH [facility] Last Admin: 06/01/21 07:08 Dose: Not Given Documented by: ANTHONY Non-Admin Reason: IV Running Tamsulosin HCl (Tamsulosin Hcl 0.4 Mg Capsule) 0.4 mg PO BEDTIME [facility] Last Admin: 05/31/21 20:30 Dose: 0.4 mg Documented by: ERIC Zolpidem Tartrate (Zolpidem Tartrate 5 Mg Tablet) 5 mg PO BEDTIME PRN PRN Reason: Insomnia Last Admin: 05/29/21 22:12 Dose: 5 mg Documented by: MARTHA Labs CBC & Chem 7: 06/02/21 07:46 06/02/21 07:46 Microbiology Microbiology Results: Microbiology 05/28/21 15:20 Urine Culture - Final Urine clean catch - Clean Catch Midstream Pseudomonas aeruginosa Enterococcus faecalis Procedures Date of Service Date of Service: 06/01/21 Progress Note: A&P Assessment and plan (1) Adenocarcinoma of cecum: Status: Acute Assessment and Plan: Status post right colon resection 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 Passing flatus more consistently Advance diet Out of bed to chair - he says he actually has been ambulating more Looks well Fall Risk Details Current Medications: Current Medications Al Hydroxide/Mg Hydroxide (Magnesium Hydrox/Alum Hydrox 30 Ml Oral.Susp) 30 ml PO Q4H PRN PRN Reason: Heartburn Amlodipine Besylate (Amlodipine Besylate 5 Mg Tablet) 5 mg PO DAILY [facility]; Protocol Last Admin: 06/01/21 08:07 Dose: 5 mg Documented by: Atorvastatin Calcium (Atorvastatin Calcium 10 Mg Tablet) 10 mg PO DAILY [facility] Last Admin: 06/01/21 08:04 Dose: 10 mg Documented by: Cephalexin HCl (Cephalexin 500 Mg Capsule) 500 mg PO Q12H [facility] Last Admin: 06/01/21 08:04 Dose: 500 mg Documented by: Diphenhydramine HCl (Diphenhydramine Hcl 50 Mg/Ml Vial) 25 mg IVPUSH Q6H PRN PRN Reason: Itching Famotidine (Famotidine/Pf 20 Mg/2 Ml Vial) 20 mg IVPUSH BID [facility] Last Admin: 06/01/21 08:04 Dose: 20 mg Documented by: Heparin Sodium (Porcine) (Heparin Sodium,Porcine 5,000 Unit/Ml Vial) 5,000 unit SUBCUT Q12H [facility] Last Admin: 06/01/21 08:04 Dose: 5,000 unit Documented by: Dextrose/Sodium Chloride (D5ns) 1,000 mls @ 60 mls/hr IVCONT .[id number] [facility] Last Admin: 06/01/21 08:33 Dose: Not Given Documented by: Morphine Sulfate (Morphine Sulfate 2 Mg/Ml Cartridge) 4 mg IVPUSH Q4H PRN; Protocol PRN Reason: Pain, Severe (Pain Scale 7-10) Last Admin: 05/28/21 03:21 Dose: 4 mg Documented by: Ondansetron HCl (Ondansetron Hcl 4 Mg/2 Ml Vial) 4 mg IVPUSH Q8H PRN PRN Reason: Nausea and Vomiting Last Admin: 05/29/21 01:28 Dose: 4 mg Documented by: Oxycodone HCl (Oxycodone Hcl Immed Release 5 Mg Tablet) 5 mg PO Q4H PRN PRN Reason: Pain, Moderate (Pain Scale 4-6 Last Admin: 05/31/21 20:31 Dose: 5 mg Documented by: Oxycodone HCl (Oxycodone Hcl Immed Release 5 Mg Tablet) 10 mg PO Q4H PRN PRN Reason: Pain, Severe (Pain Scale 7-10) Last Admin: 05/30/21 09:38 Dose: 10 mg Documented by: Sodium Chloride (0.9 % Sodium Chloride Flush 3 Ml Syringe) 3 ml IVFLUSH QSHIFT [facility] Last Admin: 06/01/21 07:08 Dose: Not Given Documented by: Tamsulosin HCl (Tamsulosin Hcl 0.4 Mg Capsule) 0.4 mg PO BEDTIME [facility] Last Admin: 05/31/21 20:30 Dose: 0.4 mg Documented by: Zolpidem Tartrate (Zolpidem Tartrate 5 Mg Tablet) 5 mg PO BEDTIME PRN PRN Reason: Insomnia Last Admin: 05/29/21 22:12 Dose: 5 mg Documented by: Time Spent With Patient Time: Total time spent is greater than 50% in coordination of care (as documented) at patient's floor/unit and/or counseling patient: Time with patient: 15 - 24 minutes Quality Stroke Does the patient have a stroke diagnosis?: No VTE Prior VTE?: No VTE Risk Level:: Medical - moderate - high VTE Device Contraindication: N/A - Device Ordered VTE Drug Contraindication: N/A - Med Ordered
[2021-06-01] MEDS: Dextrose 5 % and 0.9 % NaCl 1,000 ML 60 ML IVCONT (09:27)
--- NOTE | 2021-06-01 13:05 | MHC.CM.PN ---
nurse social work case manager note per documentation adenocarcinoma of cecum s/p colon resection patoent continuing to pass flatus more consistently , ambulating more in the hallways, plan to advance diet and moitor for tolerance on iv diphenydramine hcl q6hrs prn, iv famotidine iv bid, sc heaparin q12hrs, iv fluids decreased to 60cc. waiting for return of bowel functioning DISCHARGE PLAN-- WILL NEED FRONT WHEELED WALKER SCRIPT (RECOMENDED BY P.T. HOME ;new referral to the [facility] for nursing (post op assessment /medication reconciliation and home p.t.anticipated no services needed PCP BRITTANY LOONEY PATIENT TO CALL FOR [facility] DISCHARGE FOLLOW UP DR WICK SURGICAL FOLLOW UP PER DISCHARGE SUMMARY TRANSPORTATION PATIENT WILL SELF ARRANGE
--- NOTE | 2021-06-01 13:45 | MHC.CLN ---
F/U DIET ADVANCED TO REGULAR, LOW RESIDUE/SOFT. PASSING FLATUS. CONTINUE ENSURE CLEAR TID (720 KCAL, 24 G PROTEIN). CONTINUE TO FOLLOW FOR INTAKE/DIET TOLERANCE.
[2021-06-01] MEDS: oxyCODONE HCl Immed Release 5 MG TABLET PO (18:22)
[2021-06-01] MEDS: Tamsulosin HCL 0.4 MG CAPSULE PO (21:37)
[2021-06-01] MEDS: Docusate Sodium 100 MG CAPSULE PO (21:37)
[2021-06-01] MEDS: Morphine Sulfate 4 MG/ML CARTRIDGE 3 MG IVPUSH (21:41)
[2021-06-02] VITALS (7 sets, daily range): BP systolic 114–150; BP diastolic 57–80; PULSE 88–118; RESP 16–18; TEMP 36.6–37.4; O2SAT 94–97
[2021-06-02] MEDS: Dextrose 5 % and 0.9 % NaCl 1,000 ML 60 ML IVCONT (02:32)
[2021-06-02 08:03] LABS: Hematocrit 31.9 % (42.0-52.0); Hemoglobin 10.8 g/dl (14.0-18.0); Mean Corpuscular HGB Conc 33.9 g/dl (31.0-36.0); Mean Corpuscular Hemoglobin 32.3 pg (27.0-33.0); Mean Corpuscular Volume 95.5 fL (80.0-98.0); Mean Platelet Volume 9.8 fL (9.4-12.4); Platelet Count 482 X10*3/uL (160-400); Red Blood Count 3.34 X10*6/uL (4.60-5.80); Red Cell Distribution Width 16.2 % (11.0-16.0); White Blood Count 7.8 X10*3/uL (4.8-10.8)
--- NOTE | 2021-06-02 08:08 | P.PNGS_ITS ---
Subjective Subjective Date of Service: 06/02/21 <Tangela Geronimo PA-C - Last Filed: 06/02/21 08:13> 06/02/21 <Nadeem Saldaña MD - Last Filed: 06/02/21 09:05> Interval history: Tolerating solid diet. Had some burning at incision last night. OOB and ambulating. <Tangela Geronimo PA-C - Last Filed: 06/02/21 08:13> Physical Exam Vital Signs: Vital Signs: Last Vital Signs Temp 97.9 F 06/02/21 03:49 Pulse 102 H 06/02/21 03:49 Resp 18 06/02/21 03:49 BP 150/80 H 06/02/21 03:49 Pulse Ox 94 06/02/21 03:49 Body Mass Index 20.0 <Tangela Geronimo PA-C - Last Filed: 06/02/21 08:13> Const: General: comfortable, no acute distress and alert <Tangela Geronimo PA-C - Last Filed: 06/02/21 08:13> Orientation/consciousness: patient oriented x3 <Tangela Geronimo PA-C - Last Filed: 06/02/21 08:13> Cardio: Rate: tachycardic <Tangela Geronimo PA-C - Last Filed: 06/02/21 08:13> GI: Inspection: Yes distended (decreasing) and Yes incision (erythema persists) <Tangela Geronimo PA-C - Last Filed: 06/02/21 08:13> Palpation (GI): Soft to palpation, Tenderness to palpation present (GI) (incisional), no guarding and not rigid <Tangela Geronimo PA-C - Last Filed: 06/02/21 08:13> Skin: Other: warm and dry <Tangela Geronimo PA-C - Last Filed: 06/02/21 08:13> General skin exam: other (as noted in abdomen) <Tangela Geronimo PA-C - Last Filed: 06/02/21 08:13> Neuro: General: patient oriented x3 <ERMA Mak Last Filed: 06/02/21 08:13> Extrem: General: Yes no clubbing, cyanosis or edema <Tangela Geronimo PA-C - Last Filed: 06/02/21 08:13> Objective Data Active Medications Al Hydroxide/Mg Hydroxide (Magnesium Hydrox/Alum Hydrox 30 Ml Oral.Susp) 30 ml PO Q4H PRN PRN Reason: Heartburn Amlodipine Besylate (Amlodipine Besylate 5 Mg Tablet) 5 mg PO DAILY [facility]; Protocol Last Admin: 06/01/21 08:07 Dose: 5 mg Documented by: ANTHONY Atorvastatin Calcium (Atorvastatin Calcium 10 Mg Tablet) 10 mg PO DAILY [facility] Last Admin: 06/01/21 08:04 Dose: 10 mg Documented by: ANTHONY Cephalexin HCl (Cephalexin 500 Mg Capsule) 500 mg PO Q12H [facility] Last Admin: 06/01/21 21:37 Dose: 500 mg Documented by: HAL Diphenhydramine HCl (Diphenhydramine Hcl 50 Mg/Ml Vial) 25 mg IVPUSH Q6H PRN PRN Reason: Itching Docusate Sodium (Docusate Sodium 100 Mg Capsule) 100 mg PO BID [facility] Last Admin: 06/01/21 21:37 Dose: 100 mg Documented by: HAL Famotidine (Famotidine/Pf 20 Mg/2 Ml Vial) 20 mg IVPUSH BID [facility] Last Admin: 06/01/21 21:39 Dose: 20 mg Documented by: HAL Heparin Sodium (Porcine) (Heparin Sodium,Porcine 5,000 Unit/Ml Vial) 5,000 unit SUBCUT Q12H [facility] Last Admin: 06/01/21 21:37 Dose: 5,000 unit Documented by: HAL Dextrose/Sodium Chloride (D5ns) 1,000 mls @ 60 mls/hr IVCONT .[id number] [facility] Last Admin: 06/02/21 02:32 Dose: 60 mls/hr Documented by: MAMIE Morphine Sulfate (Morphine Sulfate 2 Mg/Ml Cartridge) 4 mg IVPUSH Q4H PRN; Protocol PRN Reason: Pain, Severe (Pain Scale 7-10) Last Admin: 05/28/21 03:21 Dose: 4 mg Documented by: FARHAD Morphine Sulfate (Morphine Sulfate 4 Mg/Ml Cartridge) 3 mg IVPUSH Q4H PRN; Protocol PRN Reason: Pain, Severe (Pain Scale 7-10) Last Admin: 06/01/21 21:41 Dose: 3 mg Documented by: HAL Ondansetron HCl (Ondansetron Hcl 4 Mg/2 Ml Vial) 4 mg IVPUSH Q8H PRN PRN Reason: Nausea and Vomiting Last Admin: 05/29/21 01:28 Dose: 4 mg Documented by: ERIC Oxycodone HCl (Oxycodone Hcl Immed Release 5 Mg Tablet) 5 mg PO Q4H PRN PRN Reason: Pain, Moderate (Pain Scale 4-6 Last Admin: 06/01/21 18:22 Dose: 5 mg Documented by: ANTHONY Oxycodone HCl (Oxycodone Hcl Immed Release 5 Mg Tablet) 10 mg PO Q4H PRN PRN Reason: Pain, Severe (Pain Scale 7-10) Last Admin: 05/30/21 09:38 Dose: 10 mg Documented by: LASHAWN Oxycodone HCl (Oxycodone Hcl Immed Release 5 Mg Tablet) 10 mg PO Q4H PRN PRN Reason: Pain, Moderate (Pain Scale 4-6 Sodium Chloride (0.9 % Sodium Chloride Flush 3 Ml Syringe) [facility] Last Admin: 06/02/21 00:23 Dose: Not Given Documented by: HAL Non-Admin Reason: IV Running Tamsulosin HCl (Tamsulosin Hcl 0.4 Mg Capsule) 0.4 mg PO BEDTIME [facility] Last Admin: 06/01/21 21:37 Dose: 0.4 mg Documented by: HAL <Tangela Geronimo PA-C - Last Filed: 06/02/21 08:13> Labs CBC & Chem 7: : 06/02/21 07:46 06/02/21 07:46 <Tangela Geronimo PA-C - Last Filed: 06/02/21 08:13> Labs: Laboratory Results - last 24 hr 06/02/21 07:46 MCV 95.5 MCH 32.3 MCHC 33.9 RDW 16.2 H Plt Count 482 H D MPV 9.8 Immature Gran % (Auto) Cancelled Neut % (Auto) Cancelled Lymph % (Auto) Cancelled Andrews % (Auto) Cancelled Eos % (Auto) Cancelled Baso % (Auto) Cancelled Lymph # (Auto) Cancelled Andrews # (Auto) Cancelled Eos # (Auto) Cancelled Baso # (Auto) Cancelled Abs Immat Gran (auto) Cancelled Absolute Neuts (auto) Cancelled Absolute Nucleated RBC 0.000 Nucleated RBC % (auto) 0.0 <Tangela Geronimo PA-C - Last Filed: 06/02/21 08:13> Procedures Date of Service Date of Service: 06/02/21 <Tangela Geronimo PA-C - Last Filed: 06/02/21 08:13> Progress Note: A&P Assessment and plan (1) Adenocarcinoma of cecum: Status: Acute <Tangela Geronimo PA-C - Last Filed: 06/02/21 08:13> (2) S/P right colectomy: Status: Acute <ERMA Mak Last Filed: 06/02/21 08:13> Assessment and Plan: Says he feels well Tolerating regular diet Redness around the incision Some skin jovanni released and incision opened - note of pus under the skin -consistent with superficial wound infection Cultures taken Otherwise doing well overall Seen examined - agree with GILBERT Geronimo Labs okay Chemistry 06/02/21 07:46 Sodium 137 Potassium 3.1 L Carbon Dioxide 23 BUN 7 L Creatinine 0.74 Calcium 8.3 L Hematology 06/02/21 07:46 WBC 7.8 Hgb 10.8 L Plt Count 482 H D <Nadeem Saldaña MD - Last Filed: 06/02/21 09:05> Assessment and Plan: 80 year old male s/p LESLEY right colectomy for cecal mass, path revealed adenoCA T3 N0. His incisional erythema persists- jovanni removed from incision and probed- evacuated large amount of purulent drainage. Likely had post op hematoma that became infected. Continue keflex, await culture. Cont reg diet. Started on colace yesterday. He is tachycardic this morning, labs repeated. Denies SOB, CP, dizziness, palpations. Cont to monitor. <ERMA Mak Last Filed: 06/02/21 08:13> Fall Risk Details Current Medications: Current Medications Al Hydroxide/Mg Hydroxide (Magnesium Hydrox/Alum Hydrox 30 Ml Oral.Susp) 30 ml PO Q4H PRN PRN Reason: Heartburn Amlodipine Besylate (Amlodipine Besylate 5 Mg Tablet) 5 mg PO DAILY [facility]; Protocol Last Admin: 06/01/21 08:07 Dose: 5 mg Documented by: Atorvastatin Calcium (Atorvastatin Calcium 10 Mg Tablet) 10 mg PO DAILY [facility] Last Admin: 06/01/21 08:04 Dose: 10 mg Documented by: Cephalexin HCl (Cephalexin 500 Mg Capsule) 500 mg PO Q12H [facility] Last Admin: 06/01/21 21:37 Dose: 500 mg Documented by: Diphenhydramine HCl (Diphenhydramine Hcl 50 Mg/Ml Vial) 25 mg IVPUSH Q6H PRN PRN Reason: Itching Docusate Sodium (Docusate Sodium 100 Mg Capsule) 100 mg PO BID [facility] Last Admin: 06/01/21 21:37 Dose: 100 mg Documented by: Famotidine (Famotidine/Pf 20 Mg/2 Ml Vial) 20 mg IVPUSH BID [facility] Last Admin: 06/01/21 21:39 Dose: 20 mg Documented by: Heparin Sodium (Porcine) (Heparin Sodium,Porcine 5,000 Unit/Ml Vial) 5,000 unit SUBCUT Q12H [facility] Last Admin: 06/01/21 21:37 Dose: 5,000 unit Documented by: Dextrose/Sodium Chloride (D5ns) 1,000 mls @ 60 mls/hr IVCONT .[id number] [facility] Last Admin: 06/02/21 02:32 Dose: 60 mls/hr Documented by: Morphine Sulfate (Morphine Sulfate 2 Mg/Ml Cartridge) 4 mg IVPUSH Q4H PRN; Protocol PRN Reason: Pain, Severe (Pain Scale 7-10) Last Admin: 05/28/21 03:21 Dose: 4 mg Documented by: Morphine Sulfate (Morphine Sulfate 4 Mg/Ml Cartridge) 3 mg IVPUSH Q4H PRN; Protocol PRN Reason: Pain, Severe (Pain Scale 7-10) Last Admin: 06/01/21 21:41 Dose: 3 mg Documented by: Ondansetron HCl (Ondansetron Hcl 4 Mg/2 Ml Vial) 4 mg IVPUSH Q8H PRN PRN Reason: Nausea and Vomiting Last Admin: 05/29/21 01:28 Dose: 4 mg Documented by: Oxycodone HCl (Oxycodone Hcl Immed Release 5 Mg Tablet) 5 mg PO Q4H PRN PRN Reason: Pain, Moderate (Pain Scale 4-6 Last Admin: 06/01/21 18:22 Dose: 5 mg Documented by: Oxycodone HCl (Oxycodone Hcl Immed Release 5 Mg Tablet) 10 mg PO Q4H PRN PRN Reason: Pain, Severe (Pain Scale 7-10) Last Admin: 05/30/21 09:38 Dose: 10 mg Documented by: Oxycodone HCl (Oxycodone Hcl Immed Release 5 Mg Tablet) 10 mg PO Q4H PRN PRN Reason: Pain, Moderate (Pain Scale 4-6 Sodium Chloride (0.9 % Sodium Chloride Flush 3 Ml Syringe) 3 ml IVFLUSH [facility] Last Admin: 06/02/21 00:23 Dose: Not Given Documented by: Tamsulosin HCl (Tamsulosin Hcl 0.4 Mg Capsule) 0.4 mg PO BEDTIME [facility] Last Admin: 06/01/21 21:37 Dose: 0.4 mg Documented by: <Tangela Geronimo PA-C - Last Filed: 06/02/21 08:13> Time Spent With Patient Time: Total time spent is greater than 50% in coordination of care (as documented) at patient's floor/unit and/or counseling patient: <Tangela Geronimo PA-C - Last Filed: 06/02/21 08:13> Time with patient: 15 - 24 minutes <Tangela Geronimo PA-C - Last Filed: 06/02/21 08:13> Quality Stroke Does the patient have a stroke diagnosis?: No <Tangela Geronimo PA-C - Last Filed: 06/02/21 08:13> VTE Prior VTE?: No <ERMA Mak Last Filed: 06/02/21 08:13> VTE Risk Level:: Medical - moderate - high <ERMA Mak Last Filed: 06/02/21 08:13> VTE Device Contraindication: N/A - Device Ordered <ERMA Mak Last Filed: 06/02/21 08:13> VTE Drug Contraindication: N/A - Med Ordered <Tangela Geronimo PA-C - Last Filed: 06/02/21 08:13>
[2021-06-02] MEDS: Morphine Sulfate 2 MG/ML CARTRIDGE 4 MG IVPUSH (08:23)
[2021-06-02 08:26] LABS: Anion Gap 13 (12-20); Blood Urea Nitrogen 7 mg/dL (9-16); Calcium 8.3 mg/dL (8.4-10.2); Carbon Dioxide 23 mmol/L (22-29); Chloride 104 mmol/L (96-108); Creatinine Clr Calc Pharmacy 66.3; Estimated Glomerular Filt Rate > 60; Glucose Fasting 88 mg/dL (60-99); Potassium 3.1 mmol/L (3.3-5.1); Sodium 137 mmol/L (135-145)
[2021-06-02 08:30] LABS: Band Neutrophils Percent 23 % (3-5); Eosinophils Absolute Manual 0.2 X10*3/uL (0.0-0.4); Eosinophils Percent Manual 2 % (0-4); Lymphocytes Absolute Manual 0.4 X10*3/uL (1.2-4.9); Lymphocytes Percent Manual 5 % (20-40); Monocytes Percent Manual 13 % (2-11); Neutrophils Absolute Manual 6.2 X10*3/uL (2.0-8.3); Neutrophils Percent Manual 57 % (45-73)
[2021-06-02] MEDS: 0.9 % Sodium Chloride Flush 3 ML SYRINGE IVFLUSH ×3 (08:30→20:49)
[2021-06-02] MEDS: Famotidine/PF 20 MG/2 ML VIAL IVPUSH ×2 (08:30→20:49)
[2021-06-02] MEDS: amLODIPine Besylate 5 MG TABLET PO (08:32)
[2021-06-02] MEDS: Heparin Sodium,Porcine 5,000 UNIT/ML VIAL 5000 UNIT SUBCUT ×2 (08:32→20:49)
[2021-06-02] MEDS: Atorvastatin Calcium 10 MG TABLET PO (08:32)
[2021-06-02] MEDS: Docusate Sodium 100 MG CAPSULE PO ×2 (08:32→20:49)
[2021-06-02] MEDS: cephALEXin 500 MG CAPSULE PO ×2 (08:32→20:49)
[2021-06-02 08:33] LABS: Hypochromasia 1+ (5-14) /OIF; Macrocytosis 1+ (5-14) /OIF; Platelet Estimate INCREASED (NORMAL); Platelet Morphology Comment NORMAL; RBC Morphology NOTED
[2021-06-02] MEDS: Potassium Chloride Packet 20 MEQ PACKET 40 MEQ PO (10:14)
[2021-06-02] MEDS: oxyCODONE HCl Immed Release 5 MG TABLET 10 MG PO (19:54)
[2021-06-02] MEDS: Tamsulosin HCL 0.4 MG CAPSULE PO (20:49)
[2021-06-03 03:21] VITALS: BP 131/73; PULSE 66; RESP 16; TEMP 36.7; O2SAT 96
[2021-06-03 06:36] LABS: Anion Gap 16 (12-20); Blood Urea Nitrogen 15 mg/dL (9-16); Calcium 8.2 mg/dL (8.4-10.2); Carbon Dioxide 22 mmol/L (22-29); Chloride 103 mmol/L (96-108); Creatinine Clr Calc Pharmacy 58.4; Estimated Glomerular Filt Rate > 60; Glucose Fasting 88 mg/dL (60-99); Phosphorus 3.5 mg/dL (2.7-4.5); Potassium 3.5 mmol/L (3.3-5.1); Sodium 137 mmol/L (135-145)
[2021-06-03 07:34] VITALS: BP 143/66; PULSE 93; RESP 16; TEMP 36.8; O2SAT 97
[2021-06-03] MEDS: 0.9 % Sodium Chloride Flush 3 ML SYRINGE IVFLUSH (08:32)
[2021-06-03] MEDS: Atorvastatin Calcium 10 MG TABLET PO (08:32)
[2021-06-03] MEDS: amLODIPine Besylate 5 MG TABLET PO (08:32)
[2021-06-03] MEDS: cephALEXin 500 MG CAPSULE PO (08:33)
[2021-06-03] MEDS: Docusate Sodium 100 MG CAPSULE PO (08:33)
[2021-06-03] MEDS: oxyCODONE HCl Immed Release 5 MG TABLET 10 MG PO (08:33)
[2021-06-03] MEDS: Famotidine/PF 20 MG/2 ML VIAL IVPUSH (08:34)
[2021-06-03] MEDS: Heparin Sodium,Porcine 5,000 UNIT/ML VIAL 5000 UNIT SUBCUT (08:34)
--- NOTE | 2021-06-03 08:56 | PM.PNGS ---
Subjective Subjective Date of Service: 06/03/21 <Tangela Geronimo PA-C - Last Filed: 06/03/21 09:05> 06/03/21 <Nadeem Saldaña MD - Last Filed: 06/03/21 09:51> Interval history: Feels well this morning. Tolerating solid diet. Had a large bowel movement yesterday. Was able to get OOB and ambulate to bathroom on his own yesterday without walker. Pain is minimal. Wants to go home today. <Tangela Geronimo PA-C - Last Filed: 06/03/21 09:05> Physical Exam Vital Signs: Vital Signs: Last Vital Signs Temp 98.3 F 06/03/21 07:34 Pulse 93 06/03/21 07:34 Resp 16 06/03/21 07:34 BP 143/66 H 06/03/21 07:34 Pulse Ox 97 06/03/21 07:34 Body Mass Index 20.0 <Tangela Geronimo PA-C - Last Filed: 06/03/21 09:05> Const: General: comfortable, no acute distress and alert <Tangela Geronimo PA-C - Last Filed: 06/03/21 09:05> Orientation/consciousness: patient oriented x3 <Tangela Geronimo PA-C - Last Filed: 06/03/21 09:05> Resp: Effort & Inspection: normal respiratory effort <Tangela Geronimo PA-C - Last Filed: 06/03/21 09:05> GI: Inspection: Yes distended (decreasingly) and Yes incision (erythema persists, continued drainage ) <Tangela Geronimo PA-C - Last Filed: 06/03/21 09:05> Palpation (GI): Soft to palpation and Tenderness to palpation present (GI) (mild) <ERMA Mak Last Filed: 06/03/21 09:05> Percussion: Yes normal to percussion <ERMA Mak Last Filed: 06/03/21 09:05> Skin: Other: warm and dry <ERMA Mak Last Filed: 06/03/21 09:05> Neuro: General: patient oriented x3 <Tangela Geronimo PA-C - Last Filed: 06/03/21 09:05> Extrem: General: Yes no clubbing, cyanosis or edema <Tangela Geronimo PA-C - Last Filed: 06/03/21 09:05> Objective Data Active Medications Al Hydroxide/Mg Hydroxide (Magnesium Hydrox/Alum Hydrox 30 Ml Oral.Susp) 30 ml PO Q4H PRN PRN Reason: Heartburn Amlodipine Besylate (Amlodipine Besylate 5 Mg Tablet) 5 mg PO DAILY [facility]; Protocol Last Admin: 06/03/21 08:32 Dose: 5 mg Documented by: LASHAWN Atorvastatin Calcium (Atorvastatin Calcium 10 Mg Tablet) 10 mg PO DAILY [facility] Last Admin: 06/03/21 08:32 Dose: 10 mg Documented by: LASHAWN Cephalexin HCl (Cephalexin 500 Mg Capsule) 500 mg PO Q12H [facility] Last Admin: 06/03/21 08:33 Dose: 500 mg Documented by: LASHAWN Diphenhydramine HCl (Diphenhydramine Hcl 50 Mg/Ml Vial) 25 mg IVPUSH Q6H PRN PRN Reason: Itching Docusate Sodium (Docusate Sodium 100 Mg Capsule) 100 mg PO BID [facility] Last Admin: 06/03/21 08:33 Dose: 100 mg Documented by: LASHAWN Famotidine (Famotidine/Pf 20 Mg/2 Ml Vial) 20 mg IVPUSH BID [facility] Last Admin: 06/03/21 08:34 Dose: 20 mg Documented by: LASHAWN Heparin Sodium (Porcine) (Heparin Sodium,Porcine 5,000 Unit/Ml Vial) 5,000 unit SUBCUT Q12H [facility] Last Admin: 06/03/21 08:34 Dose: 5,000 unit Documented by: LASHAWN Morphine Sulfate (Morphine Sulfate 4 Mg/Ml Cartridge) 3 mg IVPUSH Q4H PRN; Protocol PRN Reason: Pain, Severe (Pain Scale 7-10) Last Admin: 06/01/21 21:41 Dose: 3 mg Documented by: HAL Ondansetron HCl (Ondansetron Hcl 4 Mg/2 Ml Vial) 4 mg IVPUSH Q8H PRN PRN Reason: Nausea and Vomiting Last Admin: 05/29/21 01:28 Dose: 4 mg Documented by: ERIC Oxycodone HCl (Oxycodone Hcl Immed Release 5 Mg Tablet) 10 mg PO Q4H PRN PRN Reason: Pain, Moderate (Pain Scale 4-6 Last Admin: 06/03/21 08:33 Dose: 10 mg Documented by: LASHAWN Sodium Chloride (0.9 % Sodium Chloride Flush 3 Ml Syringe) 3 ml IVFLUSH QSHIFT [facility] Last Admin: 06/03/21 08:32 Dose: 3 ml Documented by: LASHAWN Tamsulosin HCl (Tamsulosin Hcl 0.4 Mg Capsule) 0.4 mg PO BEDTIME [facility] Last Admin: 06/02/21 20:49 Dose: 0.4 mg Documented by: ERIC <Tangela Geronimo PA-C - Last Filed: 06/03/21 09:05> Labs CBC & Chem 7: : 06/02/21 07:46 06/03/21 05:57 <Tangela Geronimo PA-C - Last Filed: 06/03/21 09:05> Labs: Laboratory Results - last 24 hr 06/03/21 05:57 Anion Gap 16 Estim Creat Clear Calc 58.4 Estimated GFR > 60 Fasting Glucose 88 Calcium 8.2 L Phosphorus 3.5 <Tangela Geronimo PA-C - Last Filed: 06/03/21 09:05> Microbiology Microbiology Results: Microbiology 06/02/21 08:05 Gram Stain - Final Incision <Tangela Geronimo PA-C - Last Filed: 06/03/21 09:05> Procedures Date of Service Date of Service: 06/03/21 <ERMA Mak Last Filed: 06/03/21 09:05> Progress Note: A&P Assessment and plan (1) Adenocarcinoma of cecum: Status: Acute <ERMA Mak Last Filed: 06/03/21 09:05> (2) S/P right colectomy: Status: Acute <ERMA Mak Last Filed: 06/03/21 09:05> Assessment and Plan: Continues to feel better Tolerating regular diet Has BMs and flatus Ambulating well with walker Incision open because of superficial abscess -dressing changes daily with visiting nurse Okay to MO home today Discussed with him the planned Seen and examined - agree with GILBERT Geronimo <Nadeem Saldaña MD - Last Filed: 06/03/21 09:51> Assessment and Plan: 80 year old male s/p LESLEY right colectomy for cecal mass, path revealed adenoCA T3 N0. Tolerating solid diet without N/V and now with good GI function. VSS- HR now WNL. Abd- soft, very mild incisional tenderness. Incisional erythema persists. Will change to PO augmentin. He feels ready for discharge to home. Stable for d/c to home today with VNA services. Prescription provided for FWW. D/c on PO course of Augmentin. F/u with Dr. Saldaña in 1 week. <Tangela Geronimo PA-C - Last Filed: 06/03/21 09:05> Fall Risk Details Current Medications: Current Medications Al Hydroxide/Mg Hydroxide (Magnesium Hydrox/Alum Hydrox 30 Ml Oral.Susp) 30 ml PO Q4H PRN PRN Reason: Heartburn Amlodipine Besylate (Amlodipine Besylate 5 Mg Tablet) 5 mg PO DAILY [facility]; Protocol Last Admin: 06/03/21 08:32 Dose: 5 mg Documented by: Atorvastatin Calcium (Atorvastatin Calcium 10 Mg Tablet) 10 mg PO DAILY [facility] Last Admin: 06/03/21 08:32 Dose: 10 mg Documented by: Cephalexin HCl (Cephalexin 500 Mg Capsule) 500 mg PO Q12H [facility] Last Admin: 06/03/21 08:33 Dose: 500 mg Documented by: Diphenhydramine HCl (Diphenhydramine Hcl 50 Mg/Ml Vial) 25 mg IVPUSH Q6H PRN PRN Reason: Itching Docusate Sodium (Docusate Sodium 100 Mg Capsule) 100 mg PO BID [facility] Last Admin: 06/03/21 08:33 Dose: 100 mg Documented by: Famotidine (Famotidine/Pf 20 Mg/2 Ml Vial) 20 mg IVPUSH BID [facility] Last Admin: 06/03/21 08:34 Dose: 20 mg Documented by: Heparin Sodium (Porcine) (Heparin Sodium,Porcine 5,000 Unit/Ml Vial) 5,000 unit SUBCUT Q12H [facility] Last Admin: 06/03/21 08:34 Dose: 5,000 unit Documented by: Morphine Sulfate (Morphine Sulfate 4 Mg/Ml Cartridge) 3 mg IVPUSH Q4H PRN; Protocol PRN Reason: Pain, Severe (Pain Scale 7-10) Last Admin: 06/01/21 21:41 Dose: 3 mg Documented by: Ondansetron HCl (Ondansetron Hcl 4 Mg/2 Ml Vial) 4 mg IVPUSH Q8H PRN PRN Reason: Nausea and Vomiting Last Admin: 05/29/21 01:28 Dose: 4 mg Documented by: Oxycodone HCl (Oxycodone Hcl Immed Release 5 Mg Tablet) 10 mg PO Q4H PRN PRN Reason: Pain, Moderate (Pain Scale 4-6 Last Admin: 06/03/21 08:33 Dose: 10 mg Documented by: Sodium Chloride (0.9 % Sodium Chloride Flush 3 Ml Syringe) [facility] Last Admin: 06/03/21 08:32 Dose: 3 ml Documented by: Tamsulosin HCl (Tamsulosin Hcl 0.4 Mg Capsule) 0.4 mg PO BEDTIME [facility] Last Admin: 06/02/21 20:49 Dose: 0.4 mg Documented by: <Tangela Geronimo PA-C - Last Filed: 06/03/21 09:05> Time Spent With Patient Time: Total time spent is greater than 50% in coordination of care (as documented) at patient's floor/unit and/or counseling patient: <Tangela Geronimo PA-C - Last Filed: 06/03/21 09:05> Time with patient: 15 - 24 minutes <Tangela Geronimo PA-C - Last Filed: 06/03/21 09:05> Quality Stroke Does the patient have a stroke diagnosis?: No <Tangela Geronimo PA-C - Last Filed: 06/03/21 09:05> VTE Prior VTE?: No <ERMA Mak Last Filed: 06/03/21 09:05> VTE Risk Level:: Medical - moderate - high <ERMA Mak Last Filed: 06/03/21 09:05> VTE Device Contraindication: N/A - Device Ordered <ERAM Mak Last Filed: 06/03/21 09:05> VTE Drug Contraindication: N/A - Med Ordered <Tangela Geronimo PA-C - Last Filed: 06/03/21 09:05>
[2021-06-03 09:19] VITALS: BP 143/66; PULSE 93; O2SAT 97
--- NOTE | 2021-06-03 09:48 | P.F2F_ITS ---
Service Date Service Date: 06/03/21 Encounter Date of encounter: 06/03/21 Reasons for Services Signs and symptoms assessed: abdominal pain, GI function, abdominal tenderness, incision appearance Reason for residential: wound care and postoperative assessment and/or care Homebound: Leaving the home is medically contraindicated at this time without the asist of a device and/or another person due th the listed conditions above and below. Reason homebound: weakness related to hospital stay and unable to drive Homebound supporting statement: Mr. Amor is s/p LESLEY right colectomy. He is weak due to his surgery and extended hospital stay and will need home services. Certification: Based on the above findings, I certify that this patient is confined to the home and needs intermittent residential care, physical therapy and/or speech therapy, or continues to need occupational therapy. The patient is under my care, and I have initiated the establishment of the plan of care. The patient will be followed by a physician who will periodically review the plan of care.
--- NOTE | 2021-06-03 10:39 | P.DS_ITS ---
DS: Providers Provider Date of Service: 06/03/21 Date of admission: 05/24/21 09:26 Primary care physician: Rocael Looney PA-C Attending physician on admission: Nadeem Saldaña DS: Diagnosis Discharge Diagnosis (1) Adenocarcinoma of cecum: Status: Acute (2) S/P right colectomy: Status: Acute DS: Summary Hospital Course Hospital Course: BRIEF HPI: Mr. Amor is a 80-year-old male who had recently undergone a colonoscopy for anemia and was noted to have a cecal mass.? Biopsies of this showed an intramucosal adenocarcinoma.? He was therefore scheduled for a right colon resection and now presents for the procedure. HOSPITAL COURSE: On 05/24/21, a hand assisted laparoscopic right colon resectio was performed by Dr. Saldaña without complication. The patient tolerated the procedure well, completed routine recovery in PACU and was admitted to the medical/surgical floor for observation. The patient had a slow recovery course. He was doing well initially with good pain control on POD #1 and tolerating clears. He was ambulated. His lee was removed. He developed confusion overnight which was likely due to ambien and this was discontinued. He had difficulty with pain control due to not receiving frequent pain medications. He was encouraged to ask more frequently with better control. He became distended on POD #3. He still had no evidence of GI function. PT was consulted to increase his activity. He continued to remain distended and developed nausea, heartburn and reflux symptoms and also became febrile. He was made NPO and an AXR and CXR were performed. It was negative for PNA and but AXR consistent with ileus. An NGT was attempted to be inserted but was unsuccessful. The following day he had resolution of his symptoms. He was kept NPO and ambulated. The began passing a large amount of flatus and began to move his bowels. He was therefore started back on clear liquids. He continued to pass flatus and was tolerating the clear liquids and therefore advanced to a low residue diet. He was started on colace for bowel regimen. Over this time, he developed midline incisional erythema and was started on keflex. This however did not improve and several jovanni were removed and the incision gently probed with evacuation of a hematoma and pus. A dry dressing was placed. He reported improvement in pain. On the day of discharge, he was tolerating a solid diet without N/V, had good pain control and good bowel function, was OOB and ambulating without difficulty. He was clinically appearing well. His path revealed a T3N0 adenocarcinoma of the cecum. He is to follow up with Dr. Killian of heme/onc upon discharge. He was discharged to home on 06/03/21 in stable condition. He was discharged to home on a PO course of Augmentin for 7 days. He has a follow up appointment with Dr. Saldaña on 06/13/21 in the office. Status at Discharge Functional status at discharge: independent ambulation (FWW occasionally) Overall status at discharge: patient is progressing back to baseline Time Spent with Patient Time attestation: Total time spent providing and/or coordinating discharge services: Discharge coordination time: Greater than 30 minutes Quality: Stroke Does the patient have a stroke diagnosis?: No Physical Exam Vital Signs: Vital Signs: Last Vital Signs Temp 98.3 F 06/03/21 07:34 Pulse 93 06/03/21 09:19 Resp 16 06/03/21 07:34 BP 143/66 H 06/03/21 09:19 Pulse Ox 97 06/03/21 09:19 Body Mass Index 20.0 Const: General: comfortable, no acute distress and alert Nutritional Appearance: thin Orientation/consciousness: patient oriented x3 Eyes: Sclerae: sclerae normal Resp: Effort & Inspection: normal respiratory effort Cardio: Rate: regular rate GI: Inspection: Yes distended (mild, soft, decreasing ) and Yes incision (erythema surrounding midline incision, some purulent drainage ) Palpation (GI): Soft to palpation and Tenderness to palpation present (GI) (mild, incisional) Skin: General skin exam: no rashes or lesions noted Neuro: General: patient oriented x3 Extrem: General: Yes no clubbing, cyanosis or edema DS: Data Data Completed and Pending Completed studies during hospitalization [Text1]: 05/24/21 09:11 Surgical [PTH] Routine Colon, right, hemicolectomy: - Adenocarcinoma, moderately differentiated with focal mucinous features, invasive into subserosa; margins negative. - 15 lymph nodes negative for metastatic carcinoma. - Tubular adenoma with low grade dysplasia, incidental. - Vermiform appendix within normal limits. - Separate loop of bowel within normal limits. - AJCC Stage (8th ed.)? pT3 N0 Labs on day of discharge: Laboratory Results - last 24 hr 06/03/21 05:57 Sodium 137 Potassium 3.5 Chloride 103 Carbon Dioxide 22 Anion Gap 16 BUN 15 D Creatinine 0.84 Estim Creat Clear Calc 58.4 Estimated GFR > 60 Fasting Glucose 88 Calcium 8.2 L Phosphorus 3.5 Preliminary micro results at discharge 06/02/21 08:05 Routine Culture - Preliminary Incision Culture in progress. Discharge Plan Discharge Patient Disposition: Home Health Service Discharge Diagnosis: s/p LESLEY right colectomy Referrals: [facility] [Outside[facility] . TO START ON SUNDAY AND HOME P HYSICAL THEAARPY TO START ON SUNDAY. SURGICAL FOLLOW UP PER DISCHARGE INSTRUCTIONS PCP ROCAEL LOONEY PATIENT TO CALL FOR POST HOSPITAL DISCHARGE, FOLLOW UP TRANSPORTATION FAMILY , PER OTHER HELP WILL BE AT HOME WAITING FOR HIM TO ENTER THE HOUSE ) Gala Killian MD [Physician] - 2 Weeks (adenoCA cecum) Rocael Looney PA-C [Primary Care Provider] - 1 Week Nadeem Saldaña MD [Physician] - 06/13/21 Discharge Medications: New oxycodone-acetaminophen [Percocet] 5-325 mg tablet 1 - 2 tab PO Q4-6H PRN (Reason: pain (scale score 7-10)) Qty: 26 RF: 0 amoxicillin-pot clavulanate [Augmentin] 500-125 mg tablet 1 tab PO BID Qty: 14 RF: 0 docusate sodium [Colace] 100 mg capsule 100 mg PO BID PRN (Reason: constipation) Qty: 30 RF: 0 Continued sildenafil 100 mg tablet 100 mg PO DAILY PRN (Reason: sexual activity) 7 Days Qty: 7 RF: 3 atorvastatin 10 mg tablet 10 mg PO DAILY Qty: 90 RF: 2 ferrous sulfate 325 mg (65 mg iron) tablet 325 mg PO BID 90 Days Qty: 180 RF: 0 amlodipine 5 mg tablet 5 mg PO DAILY 90 Days Qty: 90 RF: 1 cholecalciferol (vitamin D3) 1,250 mcg (50,000 unit) capsule 1,250 mcg PO QWEEK 56 Days Qty: 8 RF: 0 tamsulosin 0.4 mg capsule 0.4 mg PO BEDTIME 30 Days Qty: 30 RF: 3 ascorbic acid (vitamin C) 250 mg tablet 250 mg PO DAILY 90 Days Qty: 90 RF: 3 ketoconazole 2 % cream 1 appl topical DAILY 30 Days Qty: 60 RF: 1 clotrimazole-betamethasone 1-0.05 % cream 1 appl topical BID 30 Days Qty: 45 RF: 0 Discharge Orders: Discharge Order (Routine); Ordered 06/03/21 Ordered By: Tangela Geronimo Diet: other Activity on Discharge: No heavy lifting Stand Alone Forms: Patient Portal Discharge page Activity Restrictions/Additional Instructions: If the incision area is tender, you may apply an ice pack for short intervals (No more than 20 minutes on, followed by at least 20 minutes off). Do not apply heat. Do not use creams, lotions, or topical antibiotics unless instructed to do so by your surgeon. These can cause infection or allergic reaction. Ok to shower. You have jovanni closing your incision and these will be removed at your post op appointment following your surgery. DRESSING: FLUFFS & TAPE TO INCISION only while drainage continues NO HEAVY LIFTING (>10lbs). Follow up in office. ([phone]) Call Your Doctor If: -Your temperature exceeds 101.5? F -You experience excessive pain or swelling -You have an unexpected reaction to medication -You have excessive bleeding -You experience continued vomiting/nausea -Your incision begins to separate -Your incision shows signs of infection such as increased redness, swelling, excessive pain, drainage (light blood or clear fluid is normal) or heat Care Plan Goals: Return to baseline health and gradual return to activity following recovery period. Health Concerns: anemia, cecal mass, s/p LESLEY right colectomy Plan of Treatment: Discharge to home with PT services and front wheeled walker, f/u in office with Dr. Saldaña. Assessment: Doing well post op.
--- NOTE | 2021-06-03 11:28 | MHC.CM.PN ---
NURSE CASE MANAGERR NOTE- ELECTRONIC MEDICQL RECORD REVIEWED, PATIENT CASE DISCUSSED WITH SURGEON , STAFF NURSE AND PHYSICAL THEAPRY EMERGENCY CARE TECH DISCHARGE PLAN HOME WITH AND [facility] TO START NURSING FOR POST SURGICAL ASSESSMENT AND DRESSING CHANGES ,MEDICATION RECONCILIATION, PATIENT S TO LEARN DRESSING CHNAGES TO COVER FOR SUNDAY BY THE NURSING STAFF ,(CASE DISCUSSED WITH STAFF NURSE) PATIENT TO [employer]IL [employer]PER[employer] FOR FRONT WHEELED WALKER TRANSPORTATION FAMILY PCP BRITTANY LOONEY PATIENT TO CALL FOR POST HOSPITAL DISCHARGE MEDICARE IMM UPDATED ALL DISCHARGE PAPERWORK
== END 2021-06-03 12:43 | disposition home health service (06) | DRG 330 ==
LOC: HO.SSSA 09:36 → HO.S3 10:38
PROVIDERS: Nurse Practitioner; Physician Assistant Surgical; Surgery; Admitting Provider Surgery; PCP Physician Assistant; Visit Provider Surgery
PROC: 0DTF0ZZ Resection of Right Large Intestine, Open Approach (ICD-10-PCS; principal; 2021-05-24 07:30)
DX: C18.0 Malignant neoplasm of cecum (principal); K56.7 Ileus, unspecified; L76.32 Postprocedural hematoma of skin and subcutaneous tissue following other procedure; T81.41XA Infection following a procedure, superficial incisional surgical site, initial encounter; E78.5 Hyperlipidemia, unspecified; Z20.822 Contact with and (suspected) exposure to COVID-19; Z79.899 Other long term (current) drug therapy
CPT/HCPCS: 36415; 71046; 74018; 80048; 84100; 85007; 85025; 85027; 87071; 87086; 87088; 87186; 87205; 87635; 88309; 97110; 97116; 97162; 99024; C1758; J0131; J1100; J1170; J2060; J2250; J2270; J2370; J2405; J3010

== ENCOUNTER → 2021-06-13 14:32 | Outpatient (BNVA) | payer MEDICARE, SELFPAY | PROVIDERS: PCP Physician Assistant; Referring Provider Physician Assistant; Visit Provider Surgery | DX: Z48.3 Aftercare following surgery for neoplasm (principal); C18.0 Malignant neoplasm of cecum | CPT/HCPCS: 99212 ==

== ENCOUNTER 2021-06-25 16:26 | Inpatient (IN) | payer MEDICARE, SELFPAY ==
--- NOTE | ~2021-06-25 | CT_ITS ---
EXAMINATION: CT ABDOMEN AND PELVIS WITHOUT CONTRAST CLINICAL INFORMATION: Status post right colectomy 3 weeks ago. COMPARISON: Most recent CT chest/abdomen/pelvis dated 04/22/2021. Abdominal radiograph dated 05/28/2021. TECHNIQUE: Multidetector volumetric imaging was performed from the superior aspect of the liver through the pubic symphysis. Sagittal and coronal reformatted images were obtained on the technologist's workstation. This CT examination was performed using dose optimization techniques as appropriate, variously including the following: *Automated exposure control *Adjustment of mA and/or kV according to patient size (this includes techniques or standardized protocols for targeted exams where dose is matched to indication/reason for exam; i.e. extremities or head) *Use of iterative reconstruction technique DLP: 336 mGy-cm FINDINGS: LUNG BASES: Right lung base dependent atelectasis. LIVER, GALLBLADDER, AND BILIARY TREE: The liver is normal in size, shape, and attenuation. No focal hepatic lesion or biliary ductal dilatation is present. The gallbladder is unremarkable with no evidence of radiopaque gallstones, gallbladder wall thickening, or obvious pericholecystic inflammatory changes. PANCREAS: Unremarkable. SPLEEN: Unremarkable. ADRENAL GLANDS: Unremarkable. KIDNEYS AND URETERS: The kidneys are normal in size, shape, and attenuation. No hydronephrosis, hydroureter, or calculi seen. Bilateral simple-appearing renal cysts, unchanged. Findings are not clinically significant and no follow-up imaging is recommended. No perinephric stranding. BLADDER: Unremarkable. GASTROINTESTINAL TRACT: Small, sliding hiatal hernia. Severe stool within the sigmoid colon and rectum with mild sigmoid wall thickening and adjacent inflammatory change. Sigmoid diverticulosis. Interval resection of the cecum with an unremarkable ileocecal anastomosis. No evidence of leak or obstruction. PERITONEAL CAVITY: No intra-abdominal free air or free fluid. ABDOMINAL WALL: Anterior abdominal wall postsurgical change. LYMPH NODES: No new or increasing lymphadenopathy. VASCULAR: No abdominal aortic dilatation. Atherosclerotic calcifications. Unremarkable IVC. PELVIC VISCERA: The prostate is again noted to be mildly enlarged. OSSEOUS STRUCTURES: Unremarkable. CT/CT abdomen pelvis wo con IMPRESSION: 1. Severe stool burden within the sigmoid colon and rectum, new when compared to the prior examination and consistent with fecal impaction. 2. Mild wall thickening with adjacent fat stranding of the sigmoid colon. Multiple sigmoid diverticula. Findings may represent mild inflammatory change related to fecal impaction or indicate early diverticulitis. No evidence of perforation or abscess formation. 3. Unremarkable ileocolic anastomosis without evidence of leak or obstruction. Fleischner guidelines were followed.
[2021-06-25 16:38] VITALS: BP 125/74; BP 136/80; PULSE 106; PULSE 108; TEMP 36.4; O2SAT 98; O2SAT 99; BMI 18.5
--- NOTE | 2021-06-25 17:02 | ED_ITS ---
HPI - Abdominal Pain General Chief Complaint: Abdominal Pain Stated Complaint: constipation Time Seen by Provider: 06/25/21 17:00 Source: patient and family (Spouse) Mode of arrival: ambulatory Limitations: no limitations History of Present Illness HPI narrative: 80-year-old male history of stage I adenocarcinoma of the colon, patient status post right colectomy done on 05/24/2021. Patient did well after surgery until 3 days ago patient had diffuse mild abdominal pain that is progressively getting worse, patient unable to have bowel movement think it is constipation, patient had vomited once today and /patient stated bright red blood. Otherwise patient do not feel nauseous now, persistent of mild dif fuse abdominal pain. Feels pressure in the rectum. Patient is taking iron pill making his stool black for the last few months. Related Data Home Medications Medication Instructions Recorded Confirmed ferrous sulfate 325 mg (65 mg 325 mg PO BID tab 06/16/21 06/16/21 iron) tablet Previous Rx's Medication Instructions Recorded sildenafil 100 mg tablet 100 mg PO DAILY PRN 7 Days #7 tab 12/06/20 atorvastatin 10 mg tablet 10 mg PO DAILY #90 cap 12/14/20 clotrimazole-betamethasone 1 1 appl TOPICAL BID 30 Days #45 g 01/20/21 %-0.05 % topical cream ketoconazole 2 % topical cream 1 appl TOPICAL DAILY 30 Days #60 g 01/20/21 amlodipine 5 mg tablet 5 mg PO DAILY 90 Days #90 tab 03/24/21 tamsulosin 0.4 mg capsule 0.4 mg PO BEDTIME 30 Days #30 cap 04/17/21 ascorbic acid (vitamin C) 250 mg 250 mg PO DAILY 90 Days #90 tab 05/18/21 tablet cholecalciferol (vitamin D3) 1,250 1,250 mcg PO QWEEK 56 Days #8 cap 06/06/21 mcg (50,000 unit) capsule docusate sodium 100 mg capsule 100 mg PO BID PRN #30 cap 06/16/21 (Colace) Allergies Allergy/AdvReac Type Severity Reaction Status Date / Time hydrochlorothiazide AdvReac Severe Dizziness/ Verified 06/16/21 11:03 hyponatremia lisinopril AdvReac Severe Lip Verified 06/16/21 11:03 swelling. Review of Systems Review of Systems all other systems are reviewed and are negative Constitutional: Reports as per HPI and Reports no additional constitutional complaints Eyes: Reports as per HPI and Reports no additional eye complaints Reports system reviewed and no additional complaints, except as documented Cardiovascular: Reports as per HPI and Reports no additional cardiovascular complaints Respiratory: Reports as per HPI and Reports no additional respiratory complaints Gastrointestinal: Reports as per HPI and Reports no additional gastrointestinal complaints Genitourinary: Reports no additional female genitourinary complaints Musculoskeletal: Reports no additional musculoskeletal complaints Skin/Breast: Reports system reviewed and no additional complaints, except as docu Psychiatric: Reports no additional psychiatric complaints Endocrine: Reports no additional endocrine complaints Hematologic/Lymphatic: Reports no additional hematologic/lymphatic complaints Allergic/Immunologic: Reports no additional allergic/immunologic complaints Reports system reviewed and no additional complaints, except as documented and Reports Abnormal speech present Physical Exam Vital Signs: Vital Signs: Last Vital Signs Temp 97.6 F 06/25/21 16:38 Pulse 121 H 06/25/21 20:55 Resp 16 06/25/21 20:55 BP 149/78 H 06/25/21 18:04 Pulse Ox 97 06/25/21 20:55 BMI result Body Mass Index 18.5 vital signs have been reviewed as appeared to be correct. Blood pressure normal. Heart rate Elevated. Respiration rate normal. Temperature normal. Oxygen saturation normal. Appearance: Alert. Oriented X3. No acute distress. Head: Normal external exam. Normocephalic. Atraumatic. No Herrera signs noted. No raccoon eyes noted Eyes: PERRLA. EOMI. Conjunctiva and sclera normal. Eyelids normal. ENT: TM's Normal. Pharynx normal. Uvula midline. Moist mucous membranes. No trismus noted. No drooling noted. No muffled voice noted. Neck: Normal inspection. Neck supple. FROM. No adenopathy. Thyroid Normal. No meningeal signs. No neck mass noted. CVS: Normal heart rate and rhythm. Heart sound normal. No murmurs noted. Pulses normal throughout. Respiratory: No respiratory distress. Painless inspiration. Breath sounds normal. No wheezes/rales/rhonchi noted. Chest nontender. No accessory muscle usage noted or decreased air movement noted. Abdomen: Soft and nontender. Bowel sounds normal in all 4 quadrants. No distention noted. No organomegaly noted. No visible injury noted. rectal exam: Small amount of hard stool, black in color. Guaiac positive. Back: No CVA tenderness. Full range of motion noted. Skin: Skin warm and dry. Normal skin color. Normal skin turgor. No rashes/lesions/lacerations noted. Extremities: No lower extremity edema. Extremities exhibit normal range of motion. Extremities nontender. Neuro: Oriented X 3. Cranial nerve exam: II-XII are grossly intact No motor deficit. No sensory deficit. Reflexes normal. Course Course Course Narrative: Assessment and plan. 80-year-old male came in for vomiting blood, and constipation and found to have blood in the stool, had a recent right colectomy, CT is questioning diverticulitis versus change secondary to constipation. Because the patient leukocytosis and tachycardia will cover with antibiotic. initially diagnosis of diverticulitis was not expected but was seen on the CT scan that was reported at 20:45. MDM - Abdominal Pain Medical Records Attestation: I reviewed the patient's medical records. Lab Data Attestation: I reviewed the patient's lab results. Result diagrams: 06/25/21 17:15 06/25/21 17:15 Labs: Lab Results 06/25/21 06/25/21 06/25/21 Range/Units 17:15 17:15 17:21 WBC 12.5 H (4.8-10.8) X10*3/uL RBC 3.74 L (4.60-5.80) X10*6/uL Hgb 12.1 L (14.0-18.0) g/dl Hct 35.5 L (42.0-52.0) % MCV 94.9 (80.0-98.0) fL MCH 32.4 (27.0-33.0) pg MCHC 34.1 (31.0-36.0) g/dl RDW 16.4 H (11.0-16.0) % Plt Count 321 D (160-400) X10*3/uL MPV 9.9 (9.4-12.4) fL Immature Gran % (Auto) 0.8 H (0.0-0.4) % Neut % (Auto) 86.6 H (45-73) % Lymph % (Auto) 7.1 L (20-40) % [place] % (Auto) 5.0 (2-11) % Eos % (Auto) 0.3 (0-4) % Baso % (Auto) 0.2 (0-2) % Lymph # (Auto) 0.9 L (1.2-4.9) X10*3/uL [place] # (Auto) 0.6 (0.1-1.2) X10*3/uL Eos # (Auto) 0.0 (0.0-0.4) X10*3/uL Baso # (Auto) 0.0 (0.0-0.2) X10*3/uL Abs Immat Gran (auto) 0.10 H (0.00-0.03) X10*3/uL Absolute Neuts (auto) 10.8 H (2.0-8.3) x10*3/uL Absolute Nucleated RBC 0.000 (0.0-0.012) X10*3/uL Nucleated RBC % (auto) 0.0 (0.0-0.2) /100WBC PT (9.9-13.0) SEC INR (0.9-1.1) APTT (24.1-38.0) SEC Sodium 131 L (135-145) mmol/L Potassium 4.0 (3.3-5.1) mmol/L Chloride 97 (96-108) mmol/L Carbon Dioxide 20 L (22-29) mmol/L Anion Gap 18 (12-20) BUN 7 L (9-16) mg/dL Creatinine 0.80 (0.5-1.4) mg/dL Estim Creat Clear Calc 59.5 Estimated GFR > 60 Random Glucose 91 D (60-115) mg/dL Calcium 9.5 D (8.4-10.2) mg/dL Total Bilirubin 0.6 (0.0-1.0) mg/dL Direct Bilirubin 0.2 (0.0-0.5) mg/dL AST 18 (5-37) U/L ALT 16 (0-40) U/L Alkaline Phosphatase 65 (39-117) U/L Total Protein 6.4 L (6.5-8.0) g/dL Albumin 3.9 (3.5-5.0) g/dL Lipase 32 (8-78) U/L Urine Color Urine Appearance Urine pH (5.0-8.0) Ur Specific [place] (1.005-1.025) Urine Protein (NEG-TRACE) MG/DL Urine Glucose (UA) (NEG) MG/DL Urine Ketones (NEG) MG/DL Urine Blood (NEG) Urine Nitrite (NEG) Ur Leukocyte Esterase (NEG) Urine RBC (0) /HPF Urine WBC (0-4) /HPF Ur Squamous Epith Cells /LPF Urine Bacteria /LPF Urine Mucus /LPF Stool Occult Blood POSITIVE (NEGATIVE) 06/25/21 06/25/21 Range/Units 18:10 19:40 WBC (4.8-10.8) X10*3/uL RBC (4.60-5.80) X10*6/uL Hgb (14.0-18.0) g/dl Hct (42.0-52.0) % MCV (80.0-98.0) fL MCH (27.0-33.0) pg MCHC (31.0-36.0) g/dl RDW (11.0-16.0) % Plt Count (160-400) X10*3/uL MPV (9.4-12.4) fL Immature Gran % (Auto) (0.0-0.4) % Neut % (Auto) (45-73) % Lymph % (Auto) (20-40) % [place] % (Auto) (2-11) % Eos % (Auto) (0-4) % Baso % (Auto) (0-2) % Lymph # (Auto) (1.2-4.9) X10*3/uL [place] # (Auto) (0.1-1.2) X10*3/uL Eos # (Auto) (0.0-0.4) X10*3/uL Baso # (Auto) (0.0-0.2) X10*3/uL Abs Immat Gran (auto) (0.00-0.03) X10*3/uL Absolute Neuts (auto) (2.0-8.3) x10*3/uL Absolute Nucleated RBC (0.0-0.012) X10*3/uL Nucleated RBC % (auto) (0.0-0.2) /100WBC PT 10.3 (9.9-13.0) SEC INR 0.9 (0.9-1.1) APTT 23.8 L (24.1-38.0) SEC Sodium (135-145) mmol/L Potassium (3.3-5.1) mmol/L Chloride (96-108) mmol/L Carbon Dioxide (22-29) mmol/L Anion Gap (12-20) BUN (9-16) mg/dL Creatinine (0.5-1.4) mg/dL Estim Creat Clear Calc Estimated GFR Random Glucose (60-115) mg/dL Calcium (8.4-10.2) mg/dL Total Bilirubin (0.0-1.0) mg/dL Direct Bilirubin (0.0-0.5) mg/dL AST (5-37) U/L ALT (0-40) U/L Alkaline Phosphatase (39-117) U/L Total Protein (6.5-8.0) g/dL Albumin (3.5-5.0) g/dL Lipase (8-78) U/L Urine Color DK YELLOW Urine Appearance CLEAR Urine pH 5.5 (5.0-8.0) Ur Specific [place] >= 1.030 H (1.005-1.025) Urine Protein TRACE (NEG-TRACE) MG/DL Urine Glucose (UA) NEG (NEG) MG/DL Urine Ketones 15 (NEG) MG/DL Urine Blood NEG (NEG) Urine Nitrite SEE NOTE (NEG) Ur Leukocyte Esterase NEG (NEG) Urine RBC 0 (0) /HPF Urine WBC 0 (0-4) /HPF Ur Squamous Epith Cells TRACE /LPF Urine Bacteria NONE /LPF Urine Mucus TRACE /LPF Stool Occult Blood (NEGATIVE) Imaging Data CT scan - abdomen: Radiologist's impression: 1. Severe stool burden within the sigmoid colon and rectum, new when compared to the prior examination and consistent with fecal impaction. 2. Mild wall thickening with adjacent fat stranding of the sigmoid colon. Multiple sigmoid diverticula. Findings may represent mild inflammatory change related to fecal impaction or indicate early diverticulitis. No evidence of perforation or abscess formation. 3. Unremarkable ileocolic anastomosis without evidence of leak or obstruction.? ? Discharge Plan Discharge Clinical Impression: Constipation, Diverticulitis, GI bleed Patient Disposition: Admitted As Inpatient Prescriptions: No Action sildenafil 100 mg tablet 100 mg PO DAILY PRN (Reason: sexual activity) 7 Days Qty: 7 RF: 3 atorvastatin 10 mg tablet 10 mg PO DAILY Qty: 90 RF: 2 amlodipine 5 mg tablet 5 mg PO DAILY 90 Days Qty: 90 RF: 1 tamsulosin 0.4 mg capsule 0.4 mg PO BEDTIME 30 Days Qty: 30 RF: 3 ascorbic acid (vitamin C) 250 mg tablet 250 mg PO DAILY 90 Days Qty: 90 RF: 3 cholecalciferol (vitamin D3) 1,250 mcg (50,000 unit) capsule 1,250 mcg PO QWEEK 56 Days Qty: 8 RF: 0 ferrous sulfate 325 mg (65 mg iron) tablet 325 mg PO BID RF: 0 ketoconazole 2 % cream 1 appl topical DAILY 30 Days Qty: 60 RF: 1 clotrimazole-betamethasone 1-0.05 % cream 1 appl topical BID 30 Days Qty: 45 RF: 0 docusate sodium [Colace] 100 mg capsule 100 mg PO BID PRN (Reason: constipation) Qty: 30 RF: 0 PMFSH Past Medical History Medical History Anemia HTN (hypertension) Hyperlipidemia Surgical History H/O colonoscopy History of colon resection (~2020) History of left inguinal hernia repair (~02/2018) Hx of eye surgery Family History Family History Father No problems noted. Mother No problems noted. Brother Cardiovascular disease Diabetes Social History Social History Housing: House Are you a primary child care assistant to a significant other at home: No Do you presently have visiting nurse or other home services: No Alcohol intake: current Alcohol intake frequency: 0-2 drinks per day Alcohol type: wine Patient Tobacco Use Status: Never used Tobacco e-Cigarette/Vaping Use: Never Used Second Hand Smoke Exposure: No Advance Directives: Yes Advance Directives on File: Yes Advance Directives Date on File: 04/12/21 service: No Current occupational status: retired
[2021-06-25 17:25] LABS: MANUAL DIFF FLAG NO
[2021-06-25 17:29] LABS: Basophils Percent Auto 0.2 % (0-2); Eosinophils Percent Auto 0.3 % (0-4); Hematocrit 35.5 % (42.0-52.0); Hemoglobin 12.1 g/dl (14.0-18.0); Imm Gran Pct Auto 0.8 % (0.0-0.4); Lymphocytes Absolute Auto 0.9 X10*3/uL (1.2-4.9); Lymphocytes Percent Auto 7.1 % (20-40); Mean Corpuscular HGB Conc 34.1 g/dl (31.0-36.0); Mean Corpuscular Hemoglobin 32.4 pg (27.0-33.0); Mean Corpuscular Volume 94.9 fL (80.0-98.0); Mean Platelet Volume 9.9 fL (9.4-12.4); Monocytes Absolute Auto 0.6 X10*3/uL (0.1-1.2); Neutrophils Absolute Auto 10.8 x10*3/uL (2.0-8.3); Neutrophils Percent Auto 86.6 % (45-73); Platelet Count 321 X10*3/uL (160-400); Red Blood Count 3.74 X10*6/uL (4.60-5.80); Red Cell Distribution Width 16.4 % (11.0-16.0); White Blood Count 12.5 X10*3/uL (4.8-10.8)
[2021-06-25 17:30] LABS: OBS Int Ctl Valid YES; OBS1 POSITIVE (NEGATIVE)
[2021-06-25 17:51] LABS: Alanine Aminotransferase 16 U/L (0-40); Albumin Level 3.9 g/dL (3.5-5.0); Alkaline Phosphatase 65 U/L (39-117); Anion Gap 18 (12-20); Aspartate Amino Transferase 18 U/L (5-37); Bilirubin Direct 0.2 mg/dL (0.0-0.5); Bilirubin Total 0.6 mg/dL (0.0-1.0); Blood Urea Nitrogen 7 mg/dL (9-16); Calcium 9.5 mg/dL (8.4-10.2); Carbon Dioxide 20 mmol/L (22-29); Chloride 97 mmol/L (96-108); Creatinine Clr Calc Pharmacy 59.5; Estimated Glomerular Filt Rate > 60; Glucose Random 91 mg/dL (60-115); Lipase 32 U/L (8-78); Sodium 131 mmol/L (135-145); Total Protein 6.4 g/dL (6.5-8.0)
[2021-06-25 18:04] VITALS: BP 149/78; PULSE 103; RESP 18; O2SAT 99
[2021-06-25] MEDS: 0.9 % Sodium Chloride 1,000 ML 999 ML IVCONT (18:13)
[2021-06-25] MEDS: Pantoprazole Sodium 40 MG/10 ML VIAL IVPUSH (18:14)
[2021-06-25 18:25] LABS: INTERNATIONAL NORM RATIO 0.9 (0.9-1.1); Prothrombin Time 10.3 SEC (9.9-13.0)
[2021-06-25 18:35] LABS: Partial Thromboplastin Time 23.8 SEC (24.1-38.0)
--- NOTE | 2021-06-25 18:36 | PC.NURSE ---
PT , Catina Ortega, phone # [phone]
[2021-06-25 19:50] LABS: Appearance Urine CLEAR; Color Urine DK YELLOW; Glucose Urine UA NEG (NEG); Leukocyte Esterase Urine NEG (NEG); PH 5.5 (5.0-8.0); Specific Gravity - Urine >= 1.030 (1.005-1.025); Urine Blood NEG (NEG); Urine Ketones 15 MG/DL (NEG); Urine Protein TRACE MG/DL (NEG-TRACE)
[2021-06-25 19:55] LABS: UACC Culture Trigger NO
[2021-06-25 19:56] LABS: Mucus Urine TRACE /LPF; RBC Urine 0 /HPF (0); Squamous Epithelial Cell Urine TRACE /LPF; WBC Urine 0 /HPF (0-4)
[2021-06-25 20:55] VITALS: PULSE 121; RESP 16; O2SAT 97
[2021-06-25] MEDS: Mineral OiL enema 133 ML ENEMA PR (21:42)
[2021-06-25] MEDS: ondansetron HCL 4 MG/2 ML VIAL IVPUSH (21:42)
[2021-06-25] MEDS: Morphine Sulfate 2 MG/ML CARTRIDGE 1 MG IVPUSH (21:43)
--- NOTE | 2021-06-25 21:57 | PC.NURSE ---
Addendum entered by Macie New RN 06/25/21 21:57: unable to get lab work at this time Original Note: attempt to complete lactic and blood culture lab draws, pt on commode following fleets enema administration r/t constipation/impaction of stool x3 days
--- NOTE | 2021-06-25 22:03 | P.HPHOSP_ITS ---
History of Present Illness Date of Service: 06/25/21 Chief Complaint: nausea vomiting 80-year-old male with a past medical history of hypertension, hyperlipidemia, iron deficiency anemia on iron supplementation, recent diagnosis of adenocarcinoma of the cecum status post right colectomy in May of 2021; presented to the hospital today with a chief complaint of 3 days of nausea vomiting and abdominal discomfort. Patient reports that he has been having abdominal discomfort -diffuse; associated nausea and vomiting. Today he noted to have bright red blood in the vomitus. Hence decided to come to the ER for further evaluation. Also reports he had black stools but always has black stools attributes to his iron supplementation. Denies any chest pain palpitations. Denies any lightheadedness or dizziness pain Denies any numbness tingling or focal weakness. Review of all other systems is negative except mentioned above ER course: Per ER team patient had CT scan done which showed fecal impaction - received any more with a bowel movement; also concern for possible diverticulitis on the CT scan -empiric antibiotics were given. Knee stool guaiac was positive. Admitted to the hospital for further management. [facility] Medical History Anemia HTN (hypertension) Hyperlipidemia Family History Father No problems noted. Mother No problems noted. Brother Cardiovascular disease Diabetes Pertinent family history: as mentioned above Surgical History H/O colonoscopy History of colon resection (~2020) History of left inguinal hernia repair (~02/2018) Hx of eye surgery Social History Housing: House Are you a primary overnight caregiver to a significant other at home: No Do you presently have visiting nurse or other home services: No Alcohol intake: current Alcohol intake frequency: 0-2 drinks per day Alcohol type: wine Patient Tobacco Use Status: Never used Tobacco e-Cigarette/Vaping Use: Never Used Second Hand Smoke Exposure: No Advance Directives: Yes Advance Directives on File: Yes Advance Directives Date on File: 04/12/21 service: No Current occupational status: retired Meds Allergies Allergy/AdvReac Type Severity Reaction Status Date / Time hydrochlorothiazide AdvReac Severe Dizziness/ Verified 06/16/21 11:03 hyponatremia lisinopril AdvReac Severe Lip Verified 06/16/21 11:03 swelling. Active Medications: Current Medications Levofloxacin (Levaquin) 750 mg in 150 mls @ 100 mls/hr IV ONCE ONE Stop: 06/25/21 23:06 Metronidazole (Flagyl) 500 mg in 100 mls @ 100 mls/hr IV ONCE ONE Stop: 06/25/21 22:36 Dextrose/Sodium Chloride (D51/2ns) 1,000 mls @ 50 mls/hr IVCONT .Q20H JUAN Ceftriaxone Sodium 1 gm/ (Sodium Chloride) 50 mls @ 100 mls/hr IV Q24H JUAN Metronidazole (Flagyl) 500 mg in 100 mls @ 100 mls/hr IV Q8H JUAN Ondansetron HCl (Ondansetron Hcl 4 Mg/2 Ml Vial) 4 mg IVPUSH Q8H PRN PRN Reason: Nausea and Vomiting Sodium Chloride (0.9 % Sodium Chloride Flush 3 Ml Syringe) 3 ml IVFLUSH QSHIFT JUAN Home Medications Medication Instructions Recorded Confirmed Last Taken Type ferrous sulfate 325 mg (65 mg 325 mg PO BID tab 06/16/21 06/16/21 Unknown History iron) tablet Physical Exam Vital Signs and Narrative: Vital Signs: Last Vital Signs Temp 97.6 F 06/25/21 16:38 Pulse 121 H 06/25/21 20:55 Resp 16 06/25/21 20:55 BP 149/78 H 06/25/21 18:04 Pulse Ox 97 06/25/21 20:55 BMI result Body Mass Index 18.5 Gen: Appears be in no acute distress HEENT: NCAT, Moist mucosa. Pulmonary: Vesicular breath sounds, fair air entry CVS: Normal S1-S2 Abdomen: BS+, Soft, Mildly tender diffusely Extremities: Warm well perfused Neuro: Alert and awake. Results Labs CBC and Chem 7: 06/25/21 17:15 06/25/21 17:15 Labs: Laboratory Results - last 24 hr 06/25/21 06/25/21 06/25/21 17:15 17:15 17:21 MCV 94.9 MCH 32.4 MCHC 34.1 RDW 16.4 H Plt Count 321 D MPV 9.9 Immature Gran % (Auto) 0.8 H Neut % (Auto) 86.6 H Lymph % (Auto) 7.1 L [place] % (Auto) 5.0 Eos % (Auto) 0.3 Baso % (Auto) 0.2 Lymph # (Auto) 0.9 L [place] # (Auto) 0.6 Eos # (Auto) 0.0 Baso # (Auto) 0.0 Abs Immat Gran (auto) 0.10 H Absolute Neuts (auto) 10.8 H Absolute Nucleated RBC 0.000 Nucleated RBC % (auto) 0.0 PT INR APTT Anion Gap 18 Estim Creat Clear Calc 59.5 Estimated GFR > 60 Random Glucose 91 D Calcium 9.5 D Total Bilirubin 0.6 Direct Bilirubin 0.2 AST 18 ALT 16 Alkaline Phosphatase 65 Total Protein 6.4 L Albumin 3.9 Lipase 32 Urine Color Urine Appearance Urine pH Ur Specific [place] Urine Protein Urine Glucose (UA) Urine Ketones Urine Blood Urine Nitrite Ur Leukocyte Esterase Urine RBC Urine WBC Ur Squamous Epith Cells Urine Bacteria Urine Mucus Stool Occult Blood POSITIVE 06/25/21 06/25/21 18:10 19:40 MCV MCH MCHC RDW Plt Count MPV Immature Gran % (Auto) Neut % (Auto) Lymph % (Auto) [place] % (Auto) Eos % (Auto) Baso % (Auto) Lymph # (Auto) [place] # (Auto) Eos # (Auto) Baso # (Auto) Abs Immat Gran (auto) Absolute Neuts (auto) Absolute Nucleated RBC Nucleated RBC % (auto) PT 10.3 INR 0.9 APTT 23.8 L Anion Gap Estim Creat Clear Calc Estimated GFR Random Glucose Calcium Total Bilirubin Direct Bilirubin AST ALT Alkaline Phosphatase Total Protein Albumin Lipase Urine Color DK YELLOW Urine Appearance CLEAR Urine pH 5.5 Ur Specific [place] >= 1.030 H Urine Protein TRACE Urine Glucose (UA) NEG Urine Ketones 15 Urine Blood NEG Urine Nitrite SEE NOTE Ur Leukocyte Esterase NEG Urine RBC 0 Urine WBC 0 Ur Squamous Epith Cells TRACE Urine Bacteria NONE Urine Mucus TRACE Stool Occult Blood Imaging Radiologist's Impressions: Impressions Abdomen/Pelvis CT 06/25/21 19:57 IMPRESSION: 1. Severe stool burden within the sigmoid colon and rectum, new when compared to the prior examination and consistent with fecal impaction. 2. Mild wall thickening with adjacent fat stranding of the sigmoid colon. Multiple sigmoid diverticula. Findings may represent mild inflammatory change related to fecal impaction or indicate early diverticulitis. No evidence of perforation or abscess formation. 3. Unremarkable ileocolic anastomosis without evidence of leak or obstruction. Fleischner guidelines were followed. Assessment and Plan (1) Diverticulitis: Status: Acute (2) Constipation: Status: Acute (3) GI bleed: Status: Acute (4) S/P right colectomy: Status: Acute 80-year-old male with a past medical history of hypertension, hyperlipidemia, iron deficiency anemia on iron supplementation, recent diagnosis of adenocarcinoma of the cecum status post right colectomy in May of 2021; presented to the hospital today with a chief complaint of 3 days of nausea vomiting and abdominal discomfort. noted to have constipation/ fecal impaction/ diverticulitis/guaiac positive stool. Admitted for further management. Constipation/fecal impaction: Patient had anemia in the ER with a bowel movement. Diverticulitis: Continue ceftriaxone and Flagyl. Will also consult General surgery given recent abdominal surgery. Blood in the vomitus /guaiac-positive stool: H and H currently stable. IV ppi. NPO. IV fluids. GI consult for further recommendations. For all other chronic conditions, home medications will be continued DVT prophylaxis: SCD boots Code status: Full code Quality Stroke Does the patient have a stroke diagnosis?: No VTE Prior VTE?: No VTE Risk Level:: Medical - moderate - high VTE Device Contraindication: N/A - Device Ordered VTE Drug Contraindication: Treatment Not Indicated
--- NOTE | 2021-06-25 22:07 | PC.NURSE ---
pt had large amount of stool eliminated folllowing fleets enema. lab work completed at this time. ABX strted per MAR
[2021-06-25] MEDS: cefTRIAXone sodium 1 GM in 0.9 % Sodium Chloride 50 ML IV (22:20)
[2021-06-25 22:25] LABS: Lactic Acid 1.7 mmol/L (0.5-2.0)
[2021-06-25 22:28] VITALS: BP 149/78; PULSE 108; RESP 20
[2021-06-25] MEDS: metroNIDAZOLE/NS 500 MG/100 ML PIGGYBACK 100 MG IV (22:31)
[2021-06-26] VITALS (7 sets, daily range): BP systolic 113–167; BP diastolic 61–83; PULSE 70–102; RESP 14–18; TEMP 36.3–36.8; O2SAT 98–99
[2021-06-26] MEDS: Dextrose 5 % and 0.45 % NaCl 1,000 ML 50 ML IVCONT (00:12)
[2021-06-26] MEDS: HYDROmorphone HCl 0.5 MG/0.5 ML SYRINGE IVPUSH (04:40)
[2021-06-26] MEDS: metroNIDAZOLE/NS 500 MG/100 ML PIGGYBACK 100 MG IV ×3 (04:46→22:31)
[2021-06-26 05:07] LABS: MANUAL DIFF FLAG NO
[2021-06-26 05:18] LABS: Basophils Percent Auto 0.3 % (0-2); Eosinophils Percent Auto 0.1 % (0-4); Hematocrit 32.5 % (42.0-52.0); Hemoglobin 11.1 g/dl (14.0-18.0); Imm Gran Abs Auto 0.02 X10*3/uL (0.00-0.03); Imm Gran Pct Auto 0.3 % (0.0-0.4); Lymphocytes Absolute Auto 1.1 X10*3/uL (1.2-4.9); Lymphocytes Percent Auto 13.4 % (20-40); Mean Corpuscular HGB Conc 34.2 g/dl (31.0-36.0); Mean Corpuscular Hemoglobin 32.2 pg (27.0-33.0); Mean Corpuscular Volume 94.2 fL (80.0-98.0); Mean Platelet Volume 10.7 fL (9.4-12.4); Monocytes Absolute Auto 0.8 X10*3/uL (0.1-1.2); Monocytes Percent Auto 10.1 % (2-11); Neutrophils Percent Auto 75.8 % (45-73); Platelet Count 285 X10*3/uL (160-400); Red Blood Count 3.45 X10*6/uL (4.60-5.80); Red Cell Distribution Width 16.2 % (11.0-16.0); White Blood Count 7.9 X10*3/uL (4.8-10.8)
[2021-06-26 05:51] LABS: Anion Gap 11 (12-20); Blood Urea Nitrogen 7 mg/dL (9-16); Calcium 8.6 mg/dL (8.4-10.2); Carbon Dioxide 24 mmol/L (22-29); Chloride 103 mmol/L (96-108); Creatinine Clr Calc Pharmacy 67.1; Estimated Glomerular Filt Rate > 60; Glucose Random 100 mg/dL (60-115); Sodium 134 mmol/L (135-145)
[2021-06-26] MEDS: Acetaminophen 325 MG TABLET 650 MG PO ×2 (09:17→22:39)
--- NOTE | 2021-06-26 10:16 | PHA.MEDREC ---
Pharmacy Consult ? Medication Reconciliation RN COMPLETED MED REC, PHARMACY REVIEWED
[2021-06-26 10:21] LABS: COVID-19 Test Negative (Negative)
--- NOTE | 2021-06-26 11:53 | MHC.SHP ---
Pre-Procedural Eval Section A Date of Service: 06/26/21 The patient is an INPATIENT: Yes Changes since office visit: No Cold of Flu in the past 2 weeks, No New Medical Problems, No Changes in Medication and No Patient answered all questions The History & Physical has been completed within 30 days and I have reviewed it.: Yes Section B Chief Complaint: Diverticulitis/ GI Bleed Allergies: Allergies Allergy/AdvReac Type Severity Reaction Status Date / Time hydrochlorothiazide AdvReac Severe Dizziness/ Verified 06/16/21 11:03 hyponatremia lisinopril AdvReac Severe Lip Verified 06/16/21 11:03 swelling. Plan I have reviewed the history and physical and performed a pertinent physical examination on my patient. No changes have occurred unless specified.
--- NOTE | 2021-06-26 11:58 | PM.EVENT ---
Event Note Date of Service: 06/26/21 Event Note: GI consult dictated Cheo is admitted with abdominal pain, constipation, and hematemesis. Pain is better after several bowel movements. HCT is stable and no further hematemesis. CT raises question of diverticulitis, and he is on antibiotics. We will plan EGD 06/27 for further evaluation of hematemesis. He is aware of risks and benefits and agrees to proceed.
[2021-06-26] MEDS: Omeprazole 20 MG CAPSULE.DR PO (14:38)
--- NOTE | 2021-06-26 15:02 | HO.PM.IMPN ---
Subjective Subjective Date of Service: 06/26/21 Interval History: Being followed for nausea vomiting and abdominal pain, this morning patient is feeling better had 3 bowel movements after receiving an enema , as per patient he took a red color stool softener and after that had 1 episode of red colored vomitus, feels hungry, denies lightheadedness dizziness no fevers no chills. 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 Neck no JVD. CVS regular rate rhythm, Respiratory lungs clear to auscultation, no respiratory distress, no wheeze, no rhonchi. Gastrointestinal abdomen soft, nontender, bowel sounds audible, midline scar,some drainage bottom of scar Extremities no edema. Neuro nonfocal Skin no rash Psych appropriate affect Objective Data Active Medications Acetaminophen (Acetaminophen 325 Mg Tablet) 650 mg PO Q6H PRN PRN Reason: Pain, Mild (Pain Scale 1-3) Last Admin: 06/26/21 09:17 Dose: 650 mg Documented by: KRYSTIN Dextrose/Sodium Chloride (D51/2ns) 1,000 mls @ 50 mls/hr IVCONT .Q20H [facility] Last Admin: 06/26/21 00:12 Dose: 50 mls/hr Documented by: FARHAD Ceftriaxone Sodium 1 gm/ (Sodium Chloride) 50 mls @ 100 mls/hr IV Q24H [facility] Last Infusion: 06/26/21 02:05 Dose: 0 mls/hr Documented by: FARHAD Metronidazole (Flagyl) 500 mg in 100 mls @ 100 mls/hr IV Q8H [facility] Last Admin: 06/26/21 14:38 Dose: 100 mls/hr Documented by: KRYSTIN Omeprazole (Omeprazole 20 Mg Rajesh.) 20 mg PO BID@0630,1630 [facility] Last Admin: 06/26/21 14:38 Dose: 20 mg Documented by: KRYSTIN Ondansetron HCl (Ondansetron Hcl 4 Mg/2 Ml Vial) 4 mg IVPUSH Q8H PRN PRN Reason: Nausea and Vomiting Sodium Chloride (0.9 % Sodium Chloride Flush 3 Ml Syringe) 3 ml IVFLUSH QSHIFT [facility] Last Admin: 06/26/21 14:39 Dose: Not Given Documented by: KRYSTIN Non-Admin Reason: IV Running Labs CBC & Chem 7: 06/26/21 04:56 06/26/21 04:56 Labs: Laboratory Results - last 24 hr 06/25/21 06/25/21 06/25/21 17:15 17:15 17:21 MCV 94.9 MCH 32.4 MCHC 34.1 RDW 16.4 H Plt Count 321 D MPV 9.9 Immature Gran % (Auto) 0.8 H Neut % (Auto) 86.6 H Lymph % (Auto) 7.1 L Churchill % (Auto) 5.0 Eos % (Auto) 0.3 Baso % (Auto) 0.2 Lymph # (Auto) 0.9 L Churchill # (Auto) 0.6 Eos # (Auto) 0.0 Baso # (Auto) 0.0 Abs Immat Gran (auto) 0.10 H Absolute Neuts (auto) 10.8 H Absolute Nucleated RBC 0.000 Nucleated RBC % (auto) 0.0 PT INR APTT Anion Gap 18 Estim Creat Clear Calc 59.5 Estimated GFR > 60 Random Glucose 91 D Lactic Acid Calcium 9.5 D Total Bilirubin 0.6 Direct Bilirubin 0.2 AST 18 ALT 16 Alkaline Phosphatase 65 Total Protein 6.4 L Albumin 3.9 Lipase 32 Urine Color Urine Appearance Urine pH Ur Specific [place] Urine Protein Urine Glucose (UA) Urine Ketones Urine Blood Urine Nitrite Ur Leukocyte Esterase Urine RBC Urine WBC Ur Squamous Epith Cells Urine Bacteria Urine Mucus Stool Occult Blood POSITIVE COVID-19 ([facility]) COVID-19 Clin Com 06/25/21 06/25/21 06/25/21 18:10 19:40 22:07 MCV MCH MCHC RDW Plt Count MPV Immature Gran % (Auto) Neut % (Auto) Lymph % (Auto) Churchill % (Auto) Eos % (Auto) Baso % (Auto) Lymph # (Auto) Churchill # (Auto) Eos # (Auto) Baso # (Auto) Abs Immat Gran (auto) Absolute Neuts (auto) Absolute Nucleated RBC Nucleated RBC % (auto) PT 10.3 INR 0.9 APTT 23.8 L Anion Gap Estim Creat Clear Calc Estimated GFR Random Glucose Lactic Acid 1.7 Calcium Total Bilirubin Direct Bilirubin AST ALT Alkaline Phosphatase Total Protein Albumin Lipase Urine Color DK YELLOW Urine Appearance CLEAR Urine pH 5.5 Ur Specific [place] >= 1.030 H Urine Protein TRACE Urine Glucose (UA) NEG Urine Ketones 15 Urine Blood NEG Urine Nitrite SEE NOTE Ur Leukocyte Esterase NEG Urine RBC 0 Urine WBC 0 Ur Squamous Epith Cells TRACE Urine Bacteria NONE Urine Mucus TRACE Stool Occult Blood COVID-19 ([facility]) [employer] 06/26/21 06/26/21 06/26/21 04:56 04:56 09:57 MCV 94.2 MCH 32.2 MCHC 34.2 RDW 16.2 H Plt Count 285 MPV 10.7 Immature Gran % (Auto) 0.3 Neut % (Auto) 75.8 H Lymph % (Auto) 13.4 L Churchill % (Auto) 10.1 Eos % (Auto) 0.1 Baso % (Auto) 0.3 Lymph # (Auto) 1.1 L Churchill # (Auto) 0.8 Eos # (Auto) 0.0 Baso # (Auto) 0.0 Abs Immat Gran (auto) 0.02 Absolute Neuts (auto) 6.0 Absolute Nucleated RBC 0.000 Nucleated RBC % (auto) 0.0 PT INR APTT Anion Gap 11 L Estim Creat Clear Calc 67.1 Estimated GFR > 60 Random Glucose 100 Lactic Acid Calcium 8.6 D Total Bilirubin Direct Bilirubin AST ALT Alkaline Phosphatase Total Protein Albumin Lipase Urine Color Urine Appearance Urine pH Ur Specific [place] Urine Protein Urine Glucose (UA) Urine Ketones Urine Blood Urine Nitrite Ur Leukocyte Esterase Urine RBC Urine WBC Ur Squamous Epith Cells Urine Bacteria Urine Mucus Stool Occult Blood COVID-19 ([facility]) Negative COVID-19 [employer] See Note Assessment and Plan (1) Constipation: Status: Acute (2) Diverticulitis: Status: Acute (3) GI bleed: Status: Acute Assessment and Plan: 80-year-old male with a past medical history of hypertension, hyperlipidemia, iron deficiency anemia on iron supplementation, 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 ? noted to have constipation/ fecal impaction/ diverticulitis/guaiac positive stool.? Admitted for further management.? Constipation/fecal impaction: Resolved, had 3 bowel movement, complaining of abdominal soreness, no further bout of nausea vomiting. Acute sigmoid Diverticulitis/or mild inflammatory change related to fecal impaction?: Mild leukocytosis, no fever On iv ceftriaxone and Flagyl day 2/5.? Hematemesis 1 episode of red colored vomitus/guaiac-positive stool Patient has dark black stools on iron supplements Hematocrit is stable, seen by GI they recommend upper endoscopy tomorrow will place on regular diet today and keep him NPO after midnight Hypertension Soft BP hold Norvasc BPH Resume Flomax Hyperlipidemia continue statin DVT prophylaxis:? SCD boots Code status: Full code Quality Stroke Does the patient have a stroke diagnosis?: No VTE Prior VTE?: No VTE Risk Level:: Medical - moderate - high VTE Device Contraindication: N/A - Device Ordered VTE Drug Contraindication: Treatment Not Indicated
[2021-06-26] MEDS: Tamsulosin HCL 0.4 MG CAPSULE PO (22:30)
--- NOTE | 2021-06-26 22:30 | CONS_ITS ---
DATE OF SERVICE: 06/26/2021 REFERRING PHYSICIAN: Matt Morris MD REASON FOR CONSULTATION: Abdominal pain, constipation, and hematemesis. HISTORY OF PRESENT ILLNESS: The patient is a pleasant 80-year-old man, known to me from recent evaluation. He was admitted to the hospital after presenting to the emergency department yesterday with complaints of abdominal pain, constipation and 1 episode of hematemesis. His history is notable for recent right colectomy for adenocarcinoma of the cecum on May 24 after upper endoscopy and colonoscopy documented the cecal lesion at the end of March when he had presented with iron deficiency anemia and rectal bleeding. Endoscopy at that time showed mild gastritis and mild esophagitis. He did well following his surgery, but over a period of 4 days prior to admission developed constipate of symptoms with generalized abdominal discomfort and worsening pain in the left lower quadrant area. He took some laxatives at home in stool softeners, but had 1 episode of vomiting with material that he thought was blood and presented to the emergency department. He was evaluated with laboratory studies showing a hematocrit of 35, which was up from 31.9 postoperatively. This has remained stable with a slight drop after he was given some IV fluids. He has had no further hematemesis. Imaging studies were undertaken and CT scanning was done, which is reviewed. This is interpreted as showing mild wall thickening and a severe stool burden in the sigmoid and rectum. This was in the area of multiple sigmoid diverticula and the possibility of diverticulitis was raised. He has never had previous diverticulitis and did not have any fever or chills at home. He has been treated with antibiotics. PAST MEDICAL HISTORY: 1. Colon cancer as above. 2. Hypertension. 3. Hyperlipidemia. 4. Anemia. CURRENT MEDICATIONS: His current medication list is reviewed in the chart. He has not been taking significant amounts of NSAIDs. ALLERGIES: HYDROCHLOROTHIAZIDE AND LISINOPRIL. FAMILY HISTORY: This is reviewed with the patient. His mother did have diverticulitis. SOCIAL HISTORY: He does not smoke. He drinks 2 glasses of wine daily. He is a Jehovah Witness and does not accept blood products. REVIEW OF SYSTEMS: SKIN: No pruritus. HEENT: Negative. CARDIOPULMONARY: No shortness of breath or chest pain. GASTROINTESTINAL: As above. GENITOURINARY: Negative. NEUROPSYCHIATRIC: Negative. PHYSICAL EXAMINATION: GENERAL: Shows a pleasant male, lying comfortably in bed. VITAL SIGNS: Reviewed in electronic medical record and are stable. SKIN: Anicteric. HEENT: Shows no scleral icterus. NECK: Without lymphadenopathy or thyromegaly. LUNGS: Clear. HEART: Shows a regular rate and rhythm. S1, S2. No murmur. ABDOMEN: Soft. Bowel sounds are present. No organomegaly is present. EXTREMITIES: Without edema. LABORATORY DATA: Reviewed. Stool was noted to be occult blood positive and was reported as black. He does take iron and has noted black stools since his surgery. IMPRESSION: Abdominal pain, constipation, and hematemesis. At this point, he appears quite stable with no further episodes of upper GI bleeding. This appears to have been a self-limited episode, possibly related to a Jennifer-Shaw tear or his underlying gastritis. He is currently being treated with antibiotics for the underlying possibility of diverticulitis as well, but feels much better after his bowel movements, so this may have been all related to his constipation. We discussed this today. I would recommend treating him with a proton pump inhibitor and this has been ordered. He did get 1 dose of pantoprazole on admission. I discussed with him upper endoscopy for further evaluation and to reassess the gastritis noted at the time of his upper endoscopy in March. He understands risks and benefits and agrees to proceed. This will be arranged for tomorrow. Thanks for asking me to see him. I will follow him in the hospital with you. MD ЕЛЕНА Zamudio/JIAN / [phone]
[2021-06-26] MEDS: cefTRIAXone sodium 1 GM in 0.9 % Sodium Chloride 50 ML IV (22:31)
[2021-06-27] VITALS (9 sets, daily range): BP systolic 91–177; BP diastolic 47–87; PULSE 75–96; RESP 14–18; TEMP 36.1–36.8; O2SAT 94–99; BMI 19.1
[2021-06-27 04:52] LABS: Hematocrit 32.9 % (42.0-52.0); Mean Corpuscular HGB Conc 33.4 g/dl (31.0-36.0); Mean Corpuscular Hemoglobin 32.4 pg (27.0-33.0); Mean Corpuscular Volume 96.8 fL (80.0-98.0); Mean Platelet Volume 10.7 fL (9.4-12.4); Platelet Count 267 X10*3/uL (160-400); Red Cell Distribution Width 16.5 % (11.0-16.0); White Blood Count 5.1 X10*3/uL (4.8-10.8)
[2021-06-27] MEDS: Omeprazole 20 MG CAPSULE.DR PO ×2 (05:48→16:27)
[2021-06-27] MEDS: metroNIDAZOLE/NS 500 MG/100 ML PIGGYBACK 100 MG IV ×2 (05:49→15:12)
[2021-06-27 07:56] LABS: C Reactive Protein 4.73 mg/dL (< or = 0.50)
[2021-06-27] MEDS: 0.9 % Sodium Chloride Flush 3 ML SYRINGE IVFLUSH ×2 (09:05→16:30)
--- NOTE | 2021-06-27 09:43 | MHC.CM.PN ---
IMM 06/26/21, EMR REVIEWED, PT ADMITTED W/DIVERTICULITIS/GI BLEED W/PLAN FOR UPPER ENDOSCOPY TODAY, CM MET W/PT WHO IS A&O, PT REPORTS HE LIVES W/HIS RONALD AL[place]Z[facility], HAS NO DNE AND HAS HVNA FOR SKILLED NSG AND REPORTS HE FINISHED W/PT, PT VERIFIES PCP IS OSKAR LOONEY AND HIS HCP IS RONALD HERNANDES KAROLYN [phone], ALTERNATE IS SON SHILO KAROLYN [phone], COPY ON FILE IN EXPANSE. PT ALSO REPORTS HE RECEIVED BOTH SHOTS OF PFIZER VACCINE, THE LAST BEING IN 2020, PT REPORTS HE HAS AN APPT FOR THE BOOSTER ON 07/04/21. D/C PLAN: HOME W/HVNA, FAMILY FOR TRANSPORT
--- NOTE | 2021-06-27 10:38 | HO.PM.IMPN ---
Subjective Subjective Date of Service: 06/27/21 Interval History: Multiple BMs yesterday. No abd pain. No hematemesis. NPO for EGD today. Review of Systems Review of Systems: Yes all other systems are reviewed and are negative Physical Exam Vital Signs: Vital Signs: Last Vital Signs Temp 97.4 F 06/27/21 07:35 Pulse 81 06/27/21 07:35 Resp 18 06/27/21 07:35 BP 147/75 H 06/27/21 07:35 Pulse Ox 98 06/27/21 07:35 BMI result Body Mass Index 18.5 Gen: in no acute distress HEENT: sclera anicteric, moist mucus membranes Neck: supple Lungs: clear to auscultation bilaterally Heart: regular rate and rhythm, no murmurs Abd: soft, non-tender, non-distended, midline laparotomy wound with small area of dehiscence vs granuloma at inferior aspect Ext: no edema Skin: warm/well-perfused Neuro: alert and oriented x3, no focal findings Psych: appropriate affect Objective Data Active Medications Acetaminophen (Acetaminophen 325 Mg Tablet) 650 mg PO Q6H PRN PRN Reason: Pain, Mild (Pain Scale 1-3) Last Admin: 06/26/21 22:39 Dose: 650 mg Documented by: ILEANA Atorvastatin Calcium (Atorvastatin Calcium 10 Mg Tablet) 10 mg PO BEDTIME [facility] Docusate Sodium (Docusate Sodium 100 Mg Capsule) 100 mg PO BID PRN PRN Reason: constipation Ceftriaxone Sodium 1 gm/ (Sodium Chloride) 50 mls @ 100 mls/hr IV Q24H [facility] Last Infusion: 06/26/21 23:46 Dose: 100 mls/hr Documented by: ILEANA Metronidazole (Flagyl) 500 mg in 100 mls @ 100 mls/hr IV Q8H [facility] Last Infusion: 06/27/21 06:55 Dose: 100 mls/hr Documented by: ILEANA Omeprazole (Omeprazole 20 Mg Capsule.) 20 mg PO BID@0630,1630 [facility] Last Admin: 06/27/21 05:48 Dose: 20 mg Documented by: ILEANA Ondansetron HCl (Ondansetron Hcl 4 Mg/2 Ml Vial) 4 mg IVPUSH Q8H PRN PRN Reason: Nausea and Vomiting Sodium Chloride (0.9 % Sodium Chloride Flush 3 Ml Syringe) 3 ml IVFLUSH QSHIFT [facility] Last Admin: 06/27/21 09:05 Dose: 3 ml Documented by: KUN Tamsulosin HCl (Tamsulosin Hcl 0.4 Mg Capsule) 0.4 mg PO BEDTIME [facility] Last Admin: 06/26/21 22:30 Dose: 0.4 mg Documented by: ILEANA Labs CBC & Chem 7: 06/27/21 04:10 06/26/21 04:56 Labs: Laboratory Results - last 24 hr 06/27/21 06/27/21 04:10 04:10 MCV 96.8 MCH 32.4 MCHC 33.4 RDW 16.5 H Plt Count 267 MPV 10.7 Absolute Nucleated RBC 0.000 Nucleated RBC % (auto) 0.0 C-Reactive Protein 4.73 H Microbiology Microbiology Results: Microbiology 06/25/21 22:07 Blood Culture - Preliminary Blood - Venous No growth after 24 hours. 06/25/21 22:07 Blood Culture - Preliminary Blood - Venous No growth after 24 hours. Assessment and Plan (1) Constipation: Status: Acute (2) Diverticulitis: Status: Acute (3) GI bleed: Status: Acute Assessment and Plan: hospital d#3 80yo M with HTN, HLD, JENNIFER, recently diagnosed cecal adenoCA s/p R colectomy 05/24/21 p/w 3d of N/V, abd discomfort, 1 episode of hematemesis found to have constipation/fecal impaction, diverticulitis, and FOBT+ # hematemesis, guaiac-positive stool - on empiric PPI, NPO for EGD today by Dr Kong, Hb stable # acute sigmoid diverticulitis vs. stercoral colitis - on d#3 ceftriaxone + metronidazole, WBC normalized # constipation/fecal impaction - resolved s/p enema # wound dehiscence vs. granuloma - surgery consult # HTN - resume amlodipine, which had been held for soft BP # BPH - tamsulosin # HLD - statin # VTE ppx - SCDs Quality Stroke Does the patient have a stroke diagnosis?: No VTE Prior VTE?: No VTE Risk Level:: Medical - moderate - high VTE Device Contraindication: N/A - Device Ordered VTE Drug Contraindication: Treatment Not Indicated
[2021-06-27] MEDS: amLODIPine Besylate 5 MG TABLET PO (11:07)
--- NOTE | 2021-06-27 13:04 | PM.CNGS ---
History of Present Illness Consult details Consult date: 06/27/21 Narrative: 80-year-old male who is well known to me. He had undergone right colon resection for a T3 N0 adenocarcinoma last 05/23/2021. He was admitted to the hospital yesterday because of a report of coffee-ground emesis. He said he been constipated for about 2 days and started to have bowel movements yesterday after being given softeners and laxatives. However, he apparently had had some coffee-ground emesis was brought to the emergency room. He has had no episodes since then. He also states that he has had multiple bowel movements already since yesterday. He denies abdominal pain at this time. Review of Systems Constitutional: Constitutional: Denies chills and Denies fever(s) Cardiovascular: Cardiovascular: Denies chest pain, Denies dyspnea and Denies dyspnea on exertion Respiratory: Respiratory: Denies cough, Denies dyspnea and Denies dyspnea on exertion Gastrointestinal: Gastrointestinal: Denies hematochezia, Denies change in bowel habits and Reports constipation Genitourinary: Genitourinary: Denies hematuria and Denies difficulty urinating Musculoskeletal: Musculoskeletal: Denies back pain and Denies limited range of motion Neurologic: Denies focal weakness and Denies convulsions Psychiatric: Psychiatric: Denies depression and Denies mood swings PMFSH Past Medical History Medical History (Updated 06/27/21 @ 13:06 by Nadeem Saldaña MD) Adenocarcinoma of cecum Anemia HTN (hypertension) Hyperlipidemia Family History Family History Father No problems noted. Mother No problems noted. Brother Cardiovascular disease Diabetes Surgical History Surgical History H/O colonoscopy History of colon resection (~2020) History of left inguinal hernia repair (~02/2018) Hx of eye surgery Social History Social History Household Members: Significant Other Housing: House Are you a primary adult daycare coordinator to a significant other at home: No Do you presently have visiting nurse or other home services: No Alcohol intake: current Alcohol intake frequency: 0-2 drinks per day Alcohol type: wine Patient Tobacco Use Status: Never used Tobacco e-Cigarette/Vaping Use: Never Used Second Hand Smoke Exposure: No Advance Directives Date on File: 04/12/21 service: No Current occupational status: retired Meds Allergies Allergy/AdvReac Type Severity Reaction Status Date / Time hydrochlorothiazide AdvReac Severe Dizziness/ Verified 06/16/21 11:03 hyponatremia lisinopril AdvReac Severe Lip Verified 06/16/21 11:03 swelling. Active Medications: Current Medications Acetaminophen (Acetaminophen 325 Mg Tablet) 650 mg PO Q6H PRN PRN Reason: Pain, Mild (Pain Scale 1-3) Last Admin: 06/26/21 22:39 Dose: 650 mg Documented by: Amlodipine Besylate (Amlodipine Besylate 5 Mg Tablet) 5 mg PO DAILY [facility]; Protocol Last Admin: 06/27/21 11:07 Dose: 5 mg Documented by: Atorvastatin Calcium (Atorvastatin Calcium 10 Mg Tablet) 10 mg PO BEDTIME [facility] Docusate Sodium (Docusate Sodium 100 Mg Capsule) 100 mg PO BID PRN PRN Reason: constipation Ceftriaxone Sodium 1 gm/ (Sodium Chloride) 50 mls @ 100 mls/hr IV Q24H [facility] Last Infusion: 06/26/21 23:46 Dose: Infused Documented by: Metronidazole (Flagyl) 500 mg in 100 mls @ 100 mls/hr IV Q8H [facility] Last Infusion: 06/27/21 06:55 Dose: Infused Documented by: Omeprazole (Omeprazole 20 Mg Capsule.Dr) 20 mg PO BID@0630,1630 [facility] Last Admin: 06/27/21 05:48 Dose: 20 mg Documented by: Ondansetron HCl (Ondansetron Hcl 4 Mg/2 Ml Vial) 4 mg IVPUSH Q8H PRN PRN Reason: Nausea and Vomiting Sodium Chloride (0.9 % Sodium Chloride Flush 3 Ml Syringe) 3 ml IVFLUSH QSHIFT [facility] Last Admin: 06/27/21 09:05 Dose: 3 ml Documented by: Tamsulosin HCl (Tamsulosin Hcl 0.4 Mg Capsule) 0.4 mg PO BEDTIME [facility] Last Admin: 06/26/21 22:30 Dose: 0.4 mg Documented by: Home Medications Medication Instructions Recorded Confirmed Last Taken Type ferrous sulfate 325 mg (65 mg 325 mg PO BID tab 06/16/21 06/25/21 Unknown History iron) tablet Physical Exam Vital Signs: Vital Signs: Last Vital Signs Temp 97.2 F 06/27/21 12:00 Pulse 83 06/27/21 12:00 Resp 18 06/27/21 12:00 BP 177/87 H 06/27/21 12:00 Pulse Ox 94 06/27/21 12:00 BMI result Body Mass Index 19.1 Const: General: comfortable and no acute distress Orientation/consciousness: patient oriented x3 Neck: Neck: Yes no lymphadenopathy Resp: Auscultation: clear to auscultation bilaterally Cardio: Rhythm: regular rhythm GI: Other: His midline incision is well healed but there is a small area with hypergranulation tissue on the very bottom part. There is no cellulitis. There is no pus Palpation (GI): Soft to palpation, nontender and no guarding Neuro: General: patient oriented x3 Results Labs Result diagrams: 06/27/21 04:10 06/26/21 04:56 Labs: Abnormal lab results 06/27/21 06/27/21 Range/Units 04:10 04:10 RBC 3.40 L (4.60-5.80) X10*6/uL Hgb 11.0 L (14.0-18.0) g/dl Hct 32.9 L (42.0-52.0) % RDW 16.5 H (11.0-16.0) % C-Reactive Protein 4.73 H (< or = 0.50) mg/dL Short CBC 06/27/21 Range/Units 04:10 WBC 5.1 (4.8-10.8) X10*3/uL Hgb 11.0 L (14.0-18.0) g/dl Hct 32.9 L (42.0-52.0) % Plt Count 267 (160-400) X10*3/uL Urine 06/25/21 Range/Units 19:40 Urine Color DK YELLOW Urine Appearance CLEAR Urine pH 5.5 (5.0-8.0) Ur Specific [place] >= 1.030 H (1.005-1.025) Urine Protein TRACE (NEG-TRACE) MG/DL Urine Glucose (UA) NEG (NEG) MG/DL All other labs normal. Assessment and Plan (1) S/P right colectomy: Status: Acute He was admitted because of a question of coffee-ground emesis. He is undergoing EGD later today with Dr. Kong. He has an area of hypergranulation tissue on the lower most part of his midline incision. The rest of his incision is well healed. This otherwise does not appear to be infected. I plan to cauterized this with silver nitrate sticks prior to discharge. He overall seems to be doing well a surgical standpoint. In view of his constipation, he should be started on stool softeners after discharge. I will follow along while he is in the hospital. Procedures Date of Service Date of Service: 06/27/21
--- NOTE | 2021-06-27 13:58 | HO.ANESPROP2 ---
HPI - Anesthesia Eval Consult details Narrative: Abdominal pain PMFSH Active Problems Active Problems: All Active Problems (Updated 06/27/21 @ 13:06 by Nadeem Saldaña MD) Adenocarcinoma of cecum (Acute) Constipation (Acute) Diverticulitis (Acute) GI bleed (Acute) Constipation (Acute) S/P right colectomy (Acute) Scrotal itching (Acute) Facial swelling (Acute) Swelling of mandible (Acute) Tinea pedis, recurrent (Acute) Tinea corporis (Acute) Balanitis (Acute) Dysuria (Acute) HTN (hypertension) (Acute) Hyponatremia (Acute) Constipation (Acute) Erectile dysfunction (Acute) Anemia (Acute) Rectal bleeding (Acute) Fatigue (Acute) Low vitamin D level (Acute) Melena (Acute) Screening for diabetes mellitus (DM) (Acute) Nocturia (Acute) Cecum mass (Acute) Anemia (Acute) External hemorrhoid (Acute) Past Medical History Medical History (Updated 06/27/21 @ 13:06 by Nadeem Saldaña MD) Adenocarcinoma of cecum Anemia HTN (hypertension) Hyperlipidemia Family History Family History Father No problems noted. Mother No problems noted. Brother Cardiovascular disease Diabetes Family history of problems with anesthesia: No Surgical History Surgical History H/O colonoscopy History of colon resection (~2020) History of left inguinal hernia repair (~02/2018) Hx of eye surgery History of Problems with Anesthesia: No Social History Social History Household Members: Significant Other Housing: House Are you a primary healthcare account manager to a significant other at home: No Do you presently have visiting nurse or other home services: No Alcohol intake: current Alcohol intake frequency: 0-2 drinks per day Alcohol type: wine Patient Tobacco Use Status: Never used Tobacco e-Cigarette/Vaping Use: Never Used Second Hand Smoke Exposure: No Advance Directives Date on File: 04/12/21 service: No Current occupational status: retired Meds Allergies Allergy/AdvReac Type Severity Reaction Status Date / Time hydrochlorothiazide AdvReac Severe Dizziness/ Verified 06/16/21 11:03 hyponatremia lisinopril AdvReac Severe Lip Verified 06/16/21 11:03 swelling. Active Medications: Current Medications Acetaminophen (Acetaminophen 325 Mg Tablet) 650 mg PO Q6H PRN PRN Reason: Pain, Mild (Pain Scale 1-3) Last Admin: 06/26/21 22:39 Dose: 650 mg Documented by: Amlodipine Besylate (Amlodipine Besylate 5 Mg Tablet) 5 mg PO DAILY [facility]; Protocol Last Admin: 06/27/21 11:07 Dose: 5 mg Documented by: Atorvastatin Calcium (Atorvastatin Calcium 10 Mg Tablet) 10 mg PO BEDTIME [facility] Docusate Sodium (Docusate Sodium 100 Mg Capsule) 100 mg PO BID PRN PRN Reason: constipation Ceftriaxone Sodium 1 gm/ (Sodium Chloride) 50 mls @ 100 mls/hr IV Q24H [facility] Last Infusion: 06/26/21 23:46 Dose: Infused Documented by: Metronidazole (Flagyl) 500 mg in 100 mls @ 100 mls/hr IV Q8H [facility] Last Infusion: 06/27/21 06:55 Dose: Infused Documented by: Omeprazole (Omeprazole 20 Mg Capsule.) 20 mg PO BID@0630,1630 [facility] Last Admin: 06/27/21 05:48 Dose: 20 mg Documented by: Ondansetron HCl (Ondansetron Hcl 4 Mg/2 Ml Vial) 4 mg IVPUSH Q8H PRN PRN Reason: Nausea and Vomiting Sodium Chloride (0.9 % Sodium Chloride Flush 3 Ml Syringe) 3 ml IVFLUSH QSHIFT [facility] Last Admin: 06/27/21 09:05 Dose: 3 ml Documented by: Tamsulosin HCl (Tamsulosin Hcl 0.4 Mg Capsule) 0.4 mg PO BEDTIME [facility] Last Admin: 06/26/21 22:30 Dose: 0.4 mg Documented by: Home Medications Medication Instructions Recorded Confirmed Last Taken Type ferrous sulfate 325 mg (65 mg 325 mg PO BID tab 06/16/21 06/25/21 Unknown History iron) tablet Exam Exam Date and Time: June 27, 2021 1358 Height,Weight and Vital Signs: Height 5 ft 7 in Weight 55.338 kg Last Vital Signs Temp 98.2 F 06/27/21 13:45 Pulse 75 06/27/21 13:45 Resp 16 06/27/21 13:45 BP 154/74 H 06/27/21 13:45 Pulse Ox 99 06/27/21 13:45 Pertinent Lab Results Pertinent Lab Results: Laboratory Tests 06/25/21 06/25/21 06/25/21 17:15 17:15 17:21 WBC 12.5 H RBC 3.74 L Hgb 12.1 L Hct 35.5 L MCV 94.9 MCH 32.4 MCHC 34.1 RDW 16.4 H Plt Count 321 D MPV 9.9 Immature Gran % (Auto) 0.8 H Neut % (Auto) 86.6 H Lymph % (Auto) 7.1 L Cuming % (Auto) 5.0 Eos % (Auto) 0.3 Baso % (Auto) 0.2 Lymph # (Auto) 0.9 L Cuming # (Auto) 0.6 Eos # (Auto) 0.0 Baso # (Auto) 0.0 Abs Immat Gran (auto) 0.10 H Absolute Neuts (auto) 10.8 H Absolute Nucleated RBC 0.000 Nucleated RBC % (auto) 0.0 PT INR APTT Sodium 131 L Potassium 4.0 Chloride 97 Carbon Dioxide 20 L Anion Gap 18 BUN 7 L Creatinine 0.80 Estim Creat Clear Calc 59.5 Estimated GFR > 60 Random Glucose 91 D Lactic Acid Calcium 9.5 D Total Bilirubin 0.6 Direct Bilirubin 0.2 AST 18 ALT 16 Alkaline Phosphatase 65 C-Reactive Protein Total Protein 6.4 L Albumin 3.9 Lipase 32 Urine Color Urine Appearance Urine pH Ur Specific [place] Urine Protein Urine Glucose (UA) Urine Ketones Urine Blood Urine Nitrite Ur Leukocyte Esterase Urine RBC Urine WBC Ur Squamous Epith Cells Urine Bacteria Urine Mucus Stool Occult Blood POSITIVE COVID-19 (RADHA) COVID-19 Clin Com 06/25/21 06/25/21 06/25/21 18:10 19:40 22:07 WBC RBC Hgb Hct MCV MCH MCHC RDW Plt Count MPV Immature Gran % (Auto) Neut % (Auto) Lymph % (Auto) Cuming % (Auto) Eos % (Auto) Baso % (Auto) Lymph # (Auto) Cuming # (Auto) Eos # (Auto) Baso # (Auto) Abs Immat Gran (auto) Absolute Neuts (auto) Absolute Nucleated RBC Nucleated RBC % (auto) PT 10.3 INR 0.9 APTT 23.8 L Sodium Potassium Chloride Carbon Dioxide Anion Gap BUN Creatinine Estim Creat Clear Calc Estimated GFR Random Glucose Lactic Acid 1.7 Calcium Total Bilirubin Direct Bilirubin AST ALT Alkaline Phosphatase C-Reactive Protein Total Protein Albumin Lipase Urine Color DK YELLOW Urine Appearance CLEAR Urine pH 5.5 Ur Specific [place] >= 1.030 H Urine Protein TRACE Urine Glucose (UA) NEG Urine Ketones 15 Urine Blood NEG Urine Nitrite SEE NOTE Ur Leukocyte Esterase NEG Urine RBC 0 Urine WBC 0 Ur Squamous Epith Cells TRACE Urine Bacteria NONE Urine Mucus TRACE Stool Occult Blood COVID-19 (RADHA) COVID-19 Qinec Com 06/26/21 06/26/21 06/26/21 04:56 04:56 09:57 WBC 7.9 RBC 3.45 L Hgb 11.1 L Hct 32.5 L MCV 94.2 MCH 32.2 MCHC 34.2 RDW 16.2 H Plt Count 285 MPV 10.7 Immature Gran % (Auto) 0.3 Neut % (Auto) 75.8 H Lymph % (Auto) 13.4 L Cuming % (Auto) 10.1 Eos % (Auto) 0.1 Baso % (Auto) 0.3 Lymph # (Auto) 1.1 L [place] # (Auto) 0.8 Eos # (Auto) 0.0 Baso # (Auto) 0.0 Abs Immat Gran (auto) 0.02 Absolute Neuts (auto) 6.0 Absolute Nucleated RBC 0.000 Nucleated RBC % (auto) 0.0 PT INR APTT Sodium 134 L Potassium 4.0 Chloride 103 Carbon Dioxide 24 Anion Gap 11 L BUN 7 L Creatinine 0.71 Estim Creat Clear Calc 67.1 Estimated GFR > 60 Random Glucose 100 Lactic Acid Calcium 8.6 D Total Bilirubin Direct Bilirubin AST ALT Alkaline Phosphatase C-Reactive Protein Total Protein Albumin Lipase Urine Color Urine Appearance Urine pH Ur Specific [place] Urine Protein Urine Glucose (UA) Urine Ketones Urine Blood Urine Nitrite Ur Leukocyte Esterase Urine RBC Urine WBC Ur Squamous Epith Cells Urine Bacteria Urine Mucus Stool Occult Blood COVID-19 (RADHA) Negative COVID-19 Clin Com See Note 06/27/21 06/27/21 04:10 04:10 WBC 5.1 RBC 3.40 L Hgb 11.0 L Hct 32.9 L MCV 96.8 MCH 32.4 MCHC 33.4 RDW 16.5 H Plt Count 267 MPV 10.7 Immature Gran % (Auto) Neut % (Auto) Lymph % (Auto) [place] % (Auto) Eos % (Auto) Baso % (Auto) Lymph # (Auto) [place] # (Auto) Eos # (Auto) Baso # (Auto) Abs Immat Gran (auto) Absolute Neuts (auto) Absolute Nucleated RBC 0.000 Nucleated RBC % (auto) 0.0 PT INR APTT Sodium Potassium Chloride Carbon Dioxide Anion Gap BUN Creatinine Estim Creat Clear Calc Estimated GFR Random Glucose Lactic Acid Calcium Total Bilirubin Direct Bilirubin AST ALT Alkaline Phosphatase C-Reactive Protein 4.73 H Total Protein Albumin Lipase Urine Color Urine Appearance Urine pH Ur Specific [place] Urine Protein Urine Glucose (UA) Urine Ketones Urine Blood Urine Nitrite Ur Leukocyte Esterase Urine RBC Urine WBC Ur Squamous Epith Cells Urine Bacteria Urine Mucus Stool Occult Blood COVID-19 (RADHA) COVID-19 Clin Com Airway Mallampati Class: II TM Dist: >3cm Neck ROM: Full Loose/Missing/Broken Teeth: No Heart: [id number] Lungs: cta b/l Assessment and Plan Assessment Anesthesia Assessment: Anesthesia Plan Discussed and Chart Reviewed Final Anesthetic Review Family History of Problems with Anesthesia: No History of Problems with Anesthesia: No NPO: Yes ASA Class: III Final Preanesthetic Review: No Changes in Pt Med Stat, Meds/Allgs Chart Reviewed, Consent Obtained/Reviewed and Anes Risks/Benef Reviewed Patient Risk: Intermediate Procedure Risk: Low Assessment/Block/Sedation in SS: Assess/Block/Sedation-SS Anesthetic Plan Anesthetic Plan: MAC: and Agree w/ Assess. and Plan Disposition: Standard PACU
--- NOTE | 2021-06-27 14:23 | P.BOP_ITS ---
Brief Operative Note Date of Service: 06/27/21 Pre-op diagnosis: hematemesis Post-op diagnosis: same (gastritis) Procedure: EGD Surgeon: Husam Kong Anesthesia: MAC Was an Vice President Digital Strategist used for this Procedure?: No Estimated blood loss (mL): 2 Pathology: other (antral bxs) Condition: stable Disposition: PACU
--- NOTE | 2021-06-27 14:24 | PM.EVENT ---
Event Note Date of Service: 06/27/21 Event Note: EGD note dictated no esophagitis, small sliding hiatal hernia, nonobstructive schatzki ring mild antral gastritis, no bleeding rec: advance diet, d/c when stable should be fine on omeprazole 20 mg daily
--- NOTE | 2021-06-27 14:49 | OP_ITS ---
SURGEON: Husam Kong MD INDICATIONS: Hematemesis. PREOPERATIVE DIAGNOSIS: POSTOPERATIVE DIAGNOSIS: PROCEDURE PERFORMED: Upper endoscopy with biopsy. ESTIMATED BLOOD LOSS: COMPLICATIONS: ANESTHESIA: ASSISTANTS: SPECIMENS: MEDICATIONS: Monitored anesthesia care. DESCRIPTION OF PROCEDURE: History and physical performed. The risks and benefits of the procedure were explained to the patient. Informed consent was obtained. The patient was placed in the left lateral decubitus position. The Olympus video gastroscope was introduced into the esophagus, stomach, and duodenum. Examination was performed and the scope was removed. He tolerated the procedure well and was taken to recovery area in stable condition. FINDINGS: Esophagus: The esophagus was normal. There was a slight nonobstructive Schatzki ring and a small sliding hiatal hernia. Stomach: The stomach showed linear streaks of erythema in the antrum consistent with very mild gastritis. Biopsies were obtained from the antrum. There was no bleeding. Retroflexed examination was normal. Duodenum: The bulb and second portion were normal. IMPRESSION: Gastritis. RECOMMENDATIONS: 1. Follow up the biopsy results. 2. Avoid NSAIDs. 3. Continue proton pump inhibitor. 4. Advanced diet and discharge when stable. MD ЕЛЕНА Zamudio/JIAN / [id number]
--- NOTE | 2021-06-27 15:48 | PM.DS ---
DS: Providers Provider Date of Service: 06/27/21 Date of admission: 06/25/21 21:59 Primary care physician: Rocael Reeves PA-C Consults: 06/25/21 21:59 Consult to Gastroenterology Routine Consulting Provider: Husam Kong Reason for consultation: Blood in vomitus; black stool; Diverticulitis; Recent Colectomy; Caecal Ca 06/27/21 09:23 Consult to General Surgery Routine Consulting Provider: Nadeem Saldaña Reason for consultation: see inf part of surgical wound- dehisc/granuloma? 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 Patient reports that he has been having abdominal discomfort -diffuse; associated nausea and vomiting.? Today he noted to have bright red blood in the vomitus.? Hence decided to come to the ER for further evaluation.? Also reports he had black stools but always has black stools? attributes to his iron supplementation.? Denies any chest pain palpitations.? Denies any lightheadedness or dizziness pain Denies any numbness tingling or focal weakness.? Review of all other systems is negative except mentioned above ER course: Per ER team patient had CT scan done which showed fecal impaction - received any more with a bowel movement; also concern for possible diverticulitis on the CT scan -empiric antibiotics were given.? Knee stool guaiac was positive.? Admitted to the hospital for further management. This 80yo M with HTN, HLD, JENNIFER, recently diagnosed cecal adenoCA s/p R colectomy 05/24/21 presented with 3 day of N/V, abd discomfort, 1 episode of hematemesis, and found to have constipation/fecal impaction, diverticulitis, and guaiac-positive stool. He was placed on PPI. Hemoglobin remained stable. EGD was done by Dr Kong on 06/27/21 and showed: FINDINGS:? Esophagus:? The esophagus was normal.? There was a slight nonobstructive Schatzki ring and a small sliding hiatal hernia. Stomach:? The stomach showed linear streaks of erythema in the antrum consistent with very mild gastritis.? Biopsies were obtained from the antrum. There was no bleeding.? Retroflexed examination was normal. Duodenum:? The bulb and second portion were normal. Diet was advanced and he was discharged on PPI and instructed to follow up with Dr Kong for biopsy results. For diverticulitis, he was treated with ceftriaxone + metronidazole, transitioned to amoxicillin/clavaulanate upon discharge. WBC count normalized. Fecal impaction resolved with enema. His surgeon saw him and cauterized the small area of excess granulation tissue at his laparotomy wound with silver nitrate. He was discharged home with 7 more days of antibiotics. Time Spent with Patient Time attestation: Total time spent providing and/or coordinating discharge services: Discharge coordination time: Greater than 30 minutes Quality: Stroke Does the patient have a stroke diagnosis?: No Physical Exam Vital Signs: Vital Signs: Last Vital Signs Temp 97.7 F 06/27/21 15:24 Pulse 88 06/27/21 15:24 Resp 17 06/27/21 15:24 BP 169/81 H 06/27/21 15:24 Pulse Ox 98 06/27/21 15:24 BMI result Body Mass Index 19.1 Gen: in no acute distress HEENT: sclera anicteric, moist mucus membranes Neck: supple Lungs: clear to auscultation bilaterally Heart: regular rate and rhythm, no murmurs Abd: soft, non-tender, non-distended, midline laparotomy incision with small area of granulation tissue at inferior aspect Ext: no edema Skin: warm/well-perfused Neuro: alert and oriented x3, no focal findings Psych: appropriate affect DS: Data Data Completed and Pending Completed studies during hospitalization [Text1]: Laboratory Results WBC 5.1 X10*3/uL (4.8-10.8) 06/27/21 04:10 RBC 3.40 X10*6/uL (4.60-5.80) L 06/27/21 04:10 Hgb 11.0 g/dl (14.0-18.0) L 06/27/21 04:10 Hct 32.9 % (42.0-52.0) L 06/27/21 04:10 MCV 96.8 fL (80.0-98.0) 06/27/21 04:10 MCH 32.4 pg (27.0-33.0) 06/27/21 04:10 MCHC 33.4 g/dl (31.0-36.0) 06/27/21 04:10 RDW 16.5 % (11.0-16.0) H 06/27/21 04:10 Plt Count 267 X10*3/uL (160-400) 06/27/21 04:10 MPV 10.7 fL (9.4-12.4) 06/27/21 04:10 Immature Gran % (Auto) 0.3 % (0.0-0.4) 06/26/21 04:56 Neut % (Auto) 75.8 % (45-73) H 06/26/21 04:56 Lymph % (Auto) 13.4 % (20-40) L 06/26/21 04:56 Esmeralda % (Auto) 10.1 % (2-11) 06/26/21 04:56 Eos % (Auto) 0.1 % (0-4) 06/26/21 04:56 Baso % (Auto) 0.3 % (0-2) 06/26/21 04:56 Lymph # (Auto) 1.1 X10*3/uL (1.2-4.9) L 06/26/21 04:56 Esmeralda # (Auto) 0.8 X10*3/uL (0.1-1.2) 06/26/21 04:56 Eos # (Auto) 0.0 X10*3/uL (0.0-0.4) 06/26/21 04:56 Baso # (Auto) 0.0 X10*3/uL (0.0-0.2) 06/26/21 04:56 Abs Immat Gran (auto) 0.02 X10*3/uL (0.00-0.03) 06/26/21 04:56 Absolute Neuts (auto) 6.0 x10*3/uL (2.0-8.3) 06/26/21 04:56 Absolute Nucleated RBC 0.000 X10*3/uL (0.0-0.012) 06/27/21 04:10 Nucleated RBC % (auto) 0.0 /100WBC (0.0-0.2) 06/27/21 04:10 PT 10.3 SEC (9.9-13.0) 06/25/21 18:10 INR 0.9 (0.9-1.1) 06/25/21 18:10 APTT 23.8 SEC (24.1-38.0) L 06/25/21 18:10 Sodium 134 mmol/L (135-145) L 06/26/21 04:56 Potassium 4.0 mmol/L (3.3-5.1) 06/26/21 04:56 Chloride 103 mmol/L (96-108) 06/26/21 04:56 Carbon Dioxide 24 mmol/L (22-29) 06/26/21 04:56 Anion Gap 11 (12-20) L 06/26/21 04:56 BUN 7 mg/dL (9-16) L 06/26/21 04:56 Creatinine 0.71 mg/dL (0.5-1.4) 06/26/21 04:56 Estim Creat Clear Calc 67.1 06/26/21 04:56 Estimated GFR > 60 06/26/21 04:56 Random Glucose 100 mg/dL (60-115) 06/26/21 04:56 Lactic Acid 1.7 mmol/L (0.5-2.0) 06/25/21 22:07 Calcium 8.6 mg/dL (8.4-10.2) D 06/26/21 04:56 Total Bilirubin 0.6 mg/dL (0.0-1.0) 06/25/21 17:15 Direct Bilirubin 0.2 mg/dL (0.0-0.5) 06/25/21 17:15 AST 18 U/L (5-37) 06/25/21 17:15 ALT 16 U/L (0-40) 06/25/21 17:15 Alkaline Phosphatase 65 U/L (39-117) 06/25/21 17:15 C-Reactive Protein 4.73 mg/dL (< or = 0.50) H 06/27/21 04:10 Total Protein 6.4 g/dL (6.5-8.0) L 06/25/21 17:15 Albumin 3.9 g/dL (3.5-5.0) 06/25/21 17:15 Lipase 32 U/L (8-78) 06/25/21 17:15 Urine Color DK YELLOW 06/25/21 19:40 Urine Appearance CLEAR 06/25/21 19:40 Urine pH 5.5 (5.0-8.0) 06/25/21 19:40 Ur Specific [place] >= 1.030 (1.005-1.025) H 06/25/21 19:40 Urine Protein TRACE MG/DL (NEG-TRACE) 06/25/21 19:40 Urine Glucose (UA) NEG MG/DL (NEG) 06/25/21 19:40 Urine Ketones 15 MG/DL (NEG) 06/25/21 19:40 Urine Blood NEG (NEG) 06/25/21 19:40 Urine Nitrite SEE NOTE (NEG) 06/25/21 19:40 Ur Leukocyte Esterase NEG (NEG) 06/25/21 19:40 Urine RBC 0 /HPF (0) 06/25/21 19:40 Urine WBC 0 /HPF (0-4) 06/25/21 19:40 Ur Squamous Epith Cells TRACE /LPF 06/25/21 19:40 Urine Bacteria NONE /LPF 06/25/21 19:40 Urine Mucus TRACE /LPF 06/25/21 19:40 Stool Occult Blood POSITIVE (NEGATIVE) 06/25/21 17:21 COVID-19 (RADHA) Negative (Negative) 06/26/21 09:57 COVID-19 Clin Com See Note 06/26/21 09:57 Impressions Abdomen/Pelvis CT 06/25/21 19:57 IMPRESSION: 1. Severe stool burden within the sigmoid colon and rectum, new when compared to the prior examination and consistent with fecal impaction. 2. Mild wall thickening with adjacent fat stranding of the sigmoid colon. Multiple sigmoid diverticula. Findings may represent mild inflammatory change related to fecal impaction or indicate early diverticulitis. No evidence of perforation or abscess formation. 3. Unremarkable ileocolic anastomosis without evidence of leak or obstruction. Fleischner guidelines were followed. Pending studies at discharge: Pending at discharge 06/27/21 14:10 Surgical [PTH] Routine Discharge Plan Discharge Patient Disposition: Home, Self-Care Discharge Diagnosis: upper GI bleed/gastritis, diverticulitis, constipation/fecal impaction, granulation tissue Referrals: Husam Kong [Physician] - 2 Weeks Rocael Reeves PA-C [Primary Care Provider] - 1 Week Discharge Medications: New omeprazole 20 mg Capsule,Delayed Release(Dr/Ec) 20 mg PO BID@0630,1630 Qty: 60 RF: 0 amoxicillin-pot clavulanate 875-125 mg tablet 1 tab PO BID Qty: 14 RF: 0 polyethylene glycol 3350 [Miralax] 17 gram powder in packet 17 g PO DAILY PRN (Reason: constipation) Qty: 30 RF: 0 Continued sildenafil 100 mg tablet 100 mg PO DAILY PRN (Reason: sexual activity) 7 Days Qty: 7 RF: 3 atorvastatin 10 mg tablet 10 mg PO DAILY Qty: 90 RF: 2 amlodipine 5 mg tablet 5 mg PO DAILY 90 Days Qty: 90 RF: 1 tamsulosin 0.4 mg capsule 0.4 mg PO BEDTIME 30 Days Qty: 30 RF: 3 ascorbic acid (vitamin C) 250 mg tablet 250 mg PO DAILY 90 Days Qty: 90 RF: 3 cholecalciferol (vitamin D3) 1,250 mcg (50,000 unit) capsule 1,250 mcg PO QWEEK 56 Days Qty: 8 RF: 0 ferrous sulfate 325 mg (65 mg iron) tablet 325 mg PO BID RF: 0 ketoconazole 2 % cream 1 appl topical DAILY 30 Days Qty: 60 RF: 1 clotrimazole-betamethasone 1-0.05 % cream 1 appl topical BID 30 Days Qty: 45 RF: 0 docusate sodium [Colace] 100 mg capsule 100 mg PO BID PRN (Reason: constipation) Qty: 30 RF: 0 Discharge Orders: Discharge Order (Routine); Ordered 06/27/21 Ordered By: Marcela Mitchell Diet: advance to usual diet Activity on Discharge: As tolerated Stand Alone Forms: Patient Portal Discharge page Care Plan Goals: normal GI function Health Concerns: upper GI bleed/gastritis, diverticulitis, constipation/fecal impaction, granulation tissue Plan of Treatment: take omeprazole 20 mg twice daily and avoid NSAIDs. follow up with Dr Kong [GI] within 2 weeks for biopsy results and further recommendations take amoxicillin/clavulanate 875/125 mg twice daily for 7 days drink plenty of fluid and eat plenty of fiber; use Miralax as needed for constipation incision granulation tissue was cauterized Assessment: see Discharge Summary Patient Instructions: Diverticulitis (DC)
== END 2021-06-27 17:38 | disposition home or self-care (01) | DRG 379 ==
LOC: HO.ED 21:46 → HO.EDOVER 22:04 → HO.S3 06-26 12:26
PROVIDERS: Hospitalist; Internal Medicine Gastroenterology; Admitting Provider Hospitalist; Emergency Provider Emergency Medicine; PCP Physician Assistant; Visit Provider Family Medicine
PROC: 0DJ08ZZ Inspection of Upper Intestinal Tract, Via Natural or Artificial Opening Endoscopic (ICD-10-PCS; CPT 43235; principal; 2021-06-27 14:00)
DX: K57.93 Diverticulitis of intestine, part unspecified, without perforation or abscess with bleeding (principal); K59.00 Constipation, unspecified; K29.71 Gastritis, unspecified, with bleeding; E78.5 Hyperlipidemia, unspecified; N40.0 Benign prostatic hyperplasia without lower urinary tract symptoms; I10 Essential (primary) hypertension; L92.9 Granulomatous disorder of the skin and subcutaneous tissue, unspecified; Z85.038 Personal history of other malignant neoplasm of large intestine; Z20.822 Contact with and (suspected) exposure to COVID-19; Z79.899 Other long term (current) drug therapy
CPT/HCPCS: 36415; 74176; 80048; 80076; 81001; 82272; 83605; 83690; 85025; 85027; 85610; 85730; 86140; 87040; 87635; 88305; 88342; 96361; 96374; 96375; 99285; J0696; J1170; J2270; J2405

== ENCOUNTER 2021-07-11 06:47 | Outpatient (REF) | payer MEDICARE, SELFPAY ==
[2021-07-11 06:59] LABS: MANUAL DIFF FLAG NO
[2021-07-11 07:19] LABS: Basophils Absolute Auto 0.1 X10*3/uL (0.0-0.2); Eosinophils Absolute Auto 0.1 X10*3/uL (0.0-0.4); Eosinophils Percent Auto 1.8 % (0-4); Hematocrit 37.5 % (42.0-52.0); Hemoglobin 12.4 g/dl (14.0-18.0); Imm Gran Abs Auto 0.03 X10*3/uL (0.00-0.03); Imm Gran Pct Auto 0.5 % (0.0-0.4); Lymphocytes Absolute Auto 1.5 X10*3/uL (1.2-4.9); Lymphocytes Percent Auto 24.9 % (20-40); Mean Corpuscular HGB Conc 33.1 g/dl (31.0-36.0); Mean Corpuscular Volume 96.6 fL (80.0-98.0); Mean Platelet Volume 9.9 fL (9.4-12.4); Monocytes Absolute Auto 0.5 X10*3/uL (0.1-1.2); Monocytes Percent Auto 7.4 % (2-11); Neutrophils Absolute Auto 3.9 x10*3/uL (2.0-8.3); Neutrophils Percent Auto 64.4 % (45-73); Platelet Count 440 X10*3/uL (160-400); Red Blood Count 3.88 X10*6/uL (4.60-5.80); White Blood Count 6.1 X10*3/uL (4.8-10.8)
[2021-07-11 07:56] LABS: Alanine Aminotransferase 22 U/L (0-40); Albumin Level 4.2 g/dL (3.5-5.0); Alkaline Phosphatase 61 U/L (39-117); Anion Gap 13 (12-20); Aspartate Amino Transferase 24 U/L (5-37); Bilirubin Total 0.4 mg/dL (0.0-1.0); Blood Urea Nitrogen 13 mg/dL (9-16); Calcium 9.6 mg/dL (8.4-10.2); Carbon Dioxide 28 mmol/L (22-29); Chloride 102 mmol/L (96-108); Estimated Glomerular Filt Rate > 60; Glucose Random 86 mg/dL (60-115); Iron 39 mcg/dL (45-160); Percent Iron Saturation 10 % (15-50); Potassium 4.6 mmol/L (3.3-5.1); Sodium 138 mmol/L (135-145); Total Iron Binding Capacity 380 mcg/dL (228-428); Unsaturated Iron Binding 341 ug/dL
[2021-07-11 08:08] LABS: Vitamin D 25-OH Total 64.7 ng/mL (>30)
[2021-07-11 08:09] LABS: Prostate Specific Antigen Scr 0.68 ng/mL (<0.05-4.0)
== END 2021-07-11 06:48 | disposition home or self-care (01) ==
LOC: HO.LAB 06:47
PROVIDERS: Nurse Practitioner Family; PCP Physician Assistant; Visit Provider Physician Assistant
DX: I10 Essential (primary) hypertension (principal); D64.9 Anemia, unspecified; D50.0 Iron deficiency anemia secondary to blood loss (chronic); D50.9 Iron deficiency anemia, unspecified; R79.89 Other specified abnormal findings of blood chemistry; Z12.5 Encounter for screening for malignant neoplasm of prostate
CPT/HCPCS: 36415; 80053; 82306; 83540; 84153; 85025; 85027

== ENCOUNTER → 2021-07-18 10:08 | Outpatient (BNVA) | payer MEDICARE, SELFPAY | PROVIDERS: PCP Physician Assistant; Referring Provider Physician Assistant; Visit Provider Surgery | DX: Z48.3 Aftercare following surgery for neoplasm (principal); C18.0 Malignant neoplasm of cecum; Z90.49 Acquired absence of other specified parts of digestive tract | CPT/HCPCS: 99212 ==

== ENCOUNTER 2021-08-25 06:52 | Outpatient (REF) | payer MEDICARE, SELFPAY ==
[2021-08-25 07:31] LABS: Hematocrit 38.3 % (42.0-52.0); Hemoglobin 13.1 g/dl (14.0-18.0); Mean Corpuscular HGB Conc 34.2 g/dl (31.0-36.0); Mean Corpuscular Hemoglobin 33.4 pg (27.0-33.0); Mean Corpuscular Volume 97.7 fL (80.0-98.0); Mean Platelet Volume 10.8 fL (9.4-12.4); Platelet Count 252 X10*3/uL (160-400); Red Blood Count 3.92 X10*6/uL (4.60-5.80); Red Cell Distribution Width 18.3 % (11.0-16.0); White Blood Count 3.4 X10*3/uL (4.8-10.8)
[2021-08-25 08:04] LABS: Iron 119 mcg/dL (45-160); Percent Iron Saturation 33 % (15-50); Total Iron Binding Capacity 357 mcg/dL (228-428); Unsaturated Iron Binding 238 ug/dL
[2021-08-25 10:08] LABS: Ferritin 52 ng/mL (20-250)
== END 2021-08-25 06:53 | disposition home or self-care (01) ==
LOC: HO.LAB 06:52
PROVIDERS: PCP Physician Assistant; Visit Provider Physician Assistant
DX: D50.0 Iron deficiency anemia secondary to blood loss (chronic) (principal)
CPT/HCPCS: 36415; 82728; 83540; 85027

== ENCOUNTER → 2021-09-21 08:41 | Outpatient (BNVA) | payer MEDICARE, SELFPAY | PROVIDERS: PCP Physician Assistant; Visit Provider Surgery | DX: R14.0 Abdominal distension (gaseous) (principal) | CPT/HCPCS: 99212 ==

== ENCOUNTER 2021-10-06 06:43 | Outpatient (REF) | payer MEDICARE, SELFPAY ==
[2021-10-06 08:07] LABS: Hematocrit 41.7 % (42.0-52.0); Hemoglobin 14.4 g/dl (14.0-18.0); Mean Corpuscular HGB Conc 34.5 g/dl (31.0-36.0); Mean Corpuscular Volume 101.5 fL (80.0-98.0); Mean Platelet Volume 11.3 fL (9.4-12.4); Platelet Count 237 X10*3/uL (160-400); Red Blood Count 4.11 X10*6/uL (4.60-5.80); Red Cell Distribution Width 15.8 % (11.0-16.0); White Blood Count 4.7 X10*3/uL (4.8-10.8)
[2021-10-06 08:38] LABS: Anion Gap 14 (12-20); Blood Urea Nitrogen 12 mg/dL (9-16); Calcium 10.2 mg/dL (8.4-10.2); Carbon Dioxide 28 mmol/L (22-29); Chloride 100 mmol/L (96-108); Estimated Glomerular Filt Rate > 60; Glucose Random 85 mg/dL (60-115); Iron 128 mcg/dL (45-160); Percent Iron Saturation 36 % (15-50); Potassium 4.4 mmol/L (3.3-5.1); Sodium 138 mmol/L (135-145); Total Iron Binding Capacity 360 mcg/dL (228-428); Unsaturated Iron Binding 232 ug/dL
== END 2021-10-06 06:44 | disposition home or self-care (01) ==
LOC: HO.LAB 06:43
PROVIDERS: PCP Physician Assistant; Visit Provider Physician Assistant
DX: D50.0 Iron deficiency anemia secondary to blood loss (chronic) (principal); I10 Essential (primary) hypertension
CPT/HCPCS: 36415; 80048; 83540; 85027

== ENCOUNTER 2021-10-20 06:30 | Outpatient (REF) | payer MEDICARE, SELFPAY ==
--- NOTE | ~2021-10-20 | XR_ITS ---
EXAMINATION: XR ABDOMEN WITH DECUBITUS VIEWS CLINICAL INDICATION: R14.0 - Abdominal distension (gaseous) COMPARISON: Radiographs abdomen 05/28/2021, CT abdomen and pelvis 06/25/2021 TECHNIQUE: The abdomen is imaged in supine and upright views. FINDINGS: There is scattered gas in the bowel of normal caliber. There is no gaseous dilatation of bowel, differential air-fluid levels, or free air. The lung bases are clear. There is moderate stool in the colon. Some fine chain jovanni are again noted right lower quadrant. No visible urinary tract calculi. There are degenerative changes lumbar spine. XR/XR abdomen w decubitus IMPRESSION: No obstruction or free air. Lung bases clear.
--- NOTE | 2021-10-20 06:44 | ECG_ITS ---
Test Reason : LIGHTHEADED AND CLAMMY Blood Pressure : / mmHG Vent. Rate : 089 BPM Atrial Rate : 089 BPM P-R Int : 186 ms QRS Dur : 072 ms QT Int : 352 ms P-R-T Axes : 072 059 068 degrees QTc Int : 428 ms Normal sinus rhythm Normal ECG When compared with ECG of 28-MAR-2018 13:32, No significant change was found Referred By: Rocael Reeves Electronically Signed By:VIRGINIA STEVEN MD
[2021-10-20 07:55] LABS: Hematocrit 41.4 % (42.0-52.0); Hemoglobin 14.3 g/dl (14.0-18.0); Mean Corpuscular HGB Conc 34.5 g/dl (31.0-36.0); Mean Corpuscular Hemoglobin 34.9 pg (27.0-33.0); Platelet Count 262 X10*3/uL (160-400); White Blood Count 3.9 X10*3/uL (4.8-10.8)
[2021-10-20 08:25] LABS: Alanine Aminotransferase 16 U/L (0-40); Albumin Level 4.7 g/dL (3.5-5.0); Alkaline Phosphatase 69 U/L (39-117); Aspartate Amino Transferase 25 U/L (5-37); Bilirubin Direct 0.4 mg/dL (0.0-0.5); Bilirubin Total 1.1 mg/dL (0.0-1.0); Total Protein 7.8 g/dL (6.5-8.0)
[2021-10-20 08:40] LABS: TSH reflex Free T4 1.84 uIU/mL (0.32-4.0)
== END 2021-10-20 06:31 | disposition home or self-care (01) ==
LOC: HO.LAB 06:30
PROVIDERS: PCP Physician Assistant; Visit Provider Physician Assistant
DX: R42 Dizziness and giddiness (principal); R53.83 Other fatigue; D50.0 Iron deficiency anemia secondary to blood loss (chronic); R35.1 Nocturia
CPT/HCPCS: 36415; 74021; 80076; 82306; 84443; 85027; 93005

== ENCOUNTER → 2021-11-08 08:41 | Outpatient (REF) | payer MEDICARE, SELFPAY ==
--- NOTE | ~2021-11-08 | NM_ITS ---
Exercise Myocardial perfusion study Indication: Dizziness and dizziness evaluate for myocardial ischemia Technique: The patient was brought in for an exercise perfusion study on 11/08/2021. Patient performed exercise as per Tonio protocol and was injected 25 mCi of sestamibi was given intravenously one target HR was achieved. Images were obtained using the SPECT gamma camera interlaced with the gating device. Images were obtained in supine position. Resting perfusion study was performed on 11/09/2021. Patient was administered 25 mCi of sestamibi intravenously at rest. Images were then obtained in supine position. Images obtained with and without CT attenuation. Total DLP 77 mGy-cm. Images were processed with the software and compared side to side in short axis, horizontal long axis and vertical long axis views. Findings: The stress perfusion study showed non attenuated images show mildly reduced uptake in the basal inferior wall of the LV myocardium. Remainder of the LV myocardium is normally perfused. Attenuation corrected images show minimal thinning of apex of the LV myocardium. The gated study shows normal LV systolic function with calculated LVEF of 73%. LV cavity is normal in size. The gated study shows normal systolic wall thickening and contraction of all segments. There is no transient ischemic dilation. Resting study images are suboptimal due to intense uptake interfering with inferior wall uptake shows mildly reduced uptake in the inferior wall of the LV myocardium on non attenuated images. Attenuated corrected images show mildly reduced uptake anterior wall of the apex of the LV myocardium. Gating at rest reveals normal systolic wall motion with ejection fraction at 72%. The findings are consistent with likely normal myocardial perfusion. NM/NM cardiolite stress test Impression: 1. Normal myocardial perfusion 2. Gated LVEF is 73% 3. Transient ischemic dilatation not present Stress EKG is negative for ischemia
--- NOTE | 2021-11-08 08:46 | CA_ITS ---
Acquisition Time: 2021-11-08 09:07:53 Total Exercise Time: 00:05:01 Test Indications: DIZZYNESS Medications: SEE CHART Protocol: TEGAN Max HR: 153 BPM 108% of Pred: 141 BPM Max BP: 156/070 mmHG Max Work Load: 4.6 METS Exercise stress test with exercise 5 min 1 sec of Tegan stage 1 ( stage held due to heart rate at 103% MPHR, speed reduced to 1.5 MPH at 3 min 45 sec, speed reduced to 1.3 MPH at 4 min 30 sec) achieving 108% MPHR, without anginal symptoms, with isolated PAC, with normotensive and brisk chronotropic response to exercise, without EKG changes meeting criteria for ischemia. Nuclear images pending. Test reviewed with Dr Robles. Referred By: Rocael Reeves Overread By: TRACIE KU
== END ==
LOC: HO.CARD 08:41
PROVIDERS: Visit Provider Physician Assistant
DX: R42 Dizziness and giddiness (principal); R53.83 Other fatigue
CPT/HCPCS: 78452; 93017; A9500

== ENCOUNTER 2021-12-28 08:02 | Outpatient (REF) | payer MEDICARE, SELFPAY ==
[2021-12-28 08:57] LABS: Hemoglobin 13.9 g/dl (14.0-18.0); Mean Corpuscular HGB Conc 34.8 g/dl (31.0-36.0); Mean Corpuscular Hemoglobin 35.6 pg (27.0-33.0); Mean Corpuscular Volume 102.6 fL (80.0-98.0); Platelet Count 237 X10*3/uL (160-400); Red Cell Distribution Width 14.5 % (11.0-16.0); White Blood Count 4.3 X10*3/uL (4.8-10.8)
== END 2021-12-28 08:03 | disposition home or self-care (01) ==
LOC: HO.LAB 08:02
PROVIDERS: PCP Physician Assistant; Visit Provider Physician Assistant
DX: I10 Essential (primary) hypertension (principal); D50.0 Iron deficiency anemia secondary to blood loss (chronic)
CPT/HCPCS: 36415; 85027

== ENCOUNTER 2021-12-29 08:32 | Outpatient (REF) | payer MEDICARE, SELFPAY ==
[2021-12-29 10:00] LABS: Ferritin 110 ng/mL (20-250)
[2021-12-29 11:06] LABS: Folate 8.1 ng/mL (> or = 4.0)
[2021-12-29 11:57] LABS: Vitamin B12 194 pg/mL (200-900)
[2022-01-03 19:07] LABS: Intrinsic Factor Antibodies Negative (Negative)
[2022-01-03 23:26] LABS: Parietal Cell Antibody <=20.0 Unit (<=20.0)
== END 2021-12-29 08:33 | disposition home or self-care (01) ==
LOC: HO.LAB 08:32
PROVIDERS: PCP Physician Assistant; Visit Provider Physician Assistant
DX: D50.0 Iron deficiency anemia secondary to blood loss (chronic) (principal); D53.9 Nutritional anemia, unspecified; E53.8 Deficiency of other specified B group vitamins
CPT/HCPCS: 36415; 82607; 82728; 82746; 83516; 86340

== ENCOUNTER → 2022-01-26 09:28 | Outpatient (BNVA) | payer MEDICARE, SELFPAY | PROVIDERS: PCP Physician Assistant; Visit Provider Surgery | DX: C18.0 Malignant neoplasm of cecum (principal) | CPT/HCPCS: 99212 ==

== ENCOUNTER 2022-02-10 09:07 | Outpatient (REF) | payer MEDICARE, SELFPAY ==
[2022-02-10 10:58] LABS: Hematocrit 42.7 % (42.0-52.0); Hemoglobin 14.9 g/dl (14.0-18.0); Mean Corpuscular HGB Conc 34.9 g/dl (31.0-36.0); Mean Corpuscular Hemoglobin 35.3 pg (27.0-33.0); Mean Corpuscular Volume 101.2 fL (80.0-98.0); Mean Platelet Volume 11.2 fL (9.4-12.4); Platelet Count 271 X10*3/uL (160-400); Red Blood Count 4.22 X10*6/uL (4.60-5.80); Red Cell Distribution Width 13.6 % (11.0-16.0); White Blood Count 4.2 X10*3/uL (4.8-10.8)
[2022-02-10 11:30] LABS: Monotest Negative (Negative)
[2022-02-10 11:38] LABS: TSH reflex Free T4 2.61 uIU/mL (0.32-4.0)
[2022-02-10 12:14] LABS: Vitamin B12 572 pg/mL (200-900)
[2022-02-13 17:17] LABS: Lyme Abs Screen <0.90 index
== END 2022-02-10 09:08 | disposition home or self-care (01) ==
LOC: HO.LAB 09:07
PROVIDERS: PCP Physician Assistant; Visit Provider Physician Assistant
DX: I10 Essential (primary) hypertension (principal); R53.82 Chronic fatigue, unspecified; E53.8 Deficiency of other specified B group vitamins
CPT/HCPCS: 36415; 82607; 82746; 84443; 85027; 86308; 86617; 86618

== ENCOUNTER 2022-02-11 07:07 | Outpatient (REF) | payer MEDICARE, SELFPAY ==
[2022-02-11 09:02] LABS: Alanine Aminotransferase 26 U/L (0-40); Albumin Level 4.7 g/dL (3.5-5.0); Alkaline Phosphatase 68 U/L (39-117); Anion Gap 16 (12-20); Aspartate Amino Transferase 42 U/L (5-37); Bilirubin Total 1.7 mg/dL (0.0-1.0); Blood Urea Nitrogen 9 mg/dL (9-16); Calcium 9.7 mg/dL (8.4-10.2); Carbon Dioxide 29 mmol/L (22-29); Chloride 96 mmol/L (96-108); Cholesterol 201 mg/dL; Estimated Glomerular Filt Rate > 60; Glucose Fasting 93 mg/dL (60-99); HDL Cholesterol 105 mg/dL; LDL Cholesterol Calculated 82 mg/dl; Potassium 4.3 mmol/L (3.3-5.1); Sodium 137 mmol/L (135-145); Total Protein 7.8 g/dL (6.5-8.0); Triglycerides 72 mg/dL
== END 2022-02-11 07:08 | disposition home or self-care (01) ==
LOC: HO.LAB 07:07
PROVIDERS: PCP Physician Assistant; Visit Provider Physician Assistant
DX: I10 Essential (primary) hypertension (principal)
CPT/HCPCS: 36415; 80053; 80061

== ENCOUNTER 2022-04-04 06:11 | Day surgery (SDC) | payer MEDICARE, SELFPAY ==
[2022-03-30 10:32] VITALS: BMI 19.7
--- NOTE | 2022-04-03 12:11 | P.CONAN_ITS ---
Documented by User: Elisha Castillo NP 04/03/22 12:13 HPI - Anesthesia Eval Consult details Narrative: 81yo M for Colonoscopy PMFSH Active Problems Active Problems: All Active Problems (Updated 03/30/22 @ 10:29 by Jenna Maurice RN) Scrotal itching (Acute) Facial swelling (Acute) Swelling of mandible (Acute) Tinea pedis, recurrent (Acute) Tinea corporis (Acute) Balanitis (Acute) Dysuria (Acute) HTN (hypertension) (Acute) Hyponatremia (Acute) Constipation (Acute) Erectile dysfunction (Acute) Anemia (Chronic) Rectal bleeding (Acute) Fatigue (Acute) Low vitamin D level (Acute) Melena (Acute) Screening for diabetes mellitus (DM) (Acute) Nocturia (Acute) Cecum mass (Acute) Anemia (Acute) External hemorrhoid (Acute) S/P right colectomy (Acute) Constipation (Acute) Constipation (Acute) Diverticulitis (Acute) GI bleed (Acute) Skin rash (Acute) Hospital discharge follow-up (Acute) Abdominal bloating (Acute) Nocturia (Acute) Fatigue (Acute) Light headed (Acute) Macrocytic anemia (Acute) Annual physical exam (Acute) Chronic fatigue (Acute) Hyperlipidemia (Acute) Adenocarcinoma of cecum (Acute) Past Medical History Medical History Adenocarcinoma of cecum Anemia History of urinary frequency HTN (hypertension) Hyperlipidemia Family History Family History Father No problems noted. Mother No problems noted. Brother Cardiovascular disease Diabetes Family history of problems with anesthesia: No Surgical History Surgical History H/O colonoscopy History of colon resection (~2020) History of esophagogastroduodenoscopy (EGD) History of left inguinal hernia repair (~02/2018) Hx of eye surgery History of Problems with Anesthesia: No Social History Social History Household Members: Significant Other Housing: House Are you a primary healthcare administrative assistant to a significant other at home: No Do you presently have visiting nurse or other home services: No Alcohol intake: current Alcohol intake frequency: 0-2 drinks per day Alcohol type: wine Patient Tobacco Use Status: Never used Tobacco e-Cigarette/Vaping Use: Never Used Second Hand Smoke Exposure: No Use of substances other than those prescribed or required for medical reasons: No Are you DNR?: No Advance Directives: Yes Advance Directives on File: Yes Advance Directives Date on File: 04/12/21 service: No Current occupational status: retired Cognitive needs: No Hearing needs: No Vision needs: Yes (glasses) Meds Allergies Allergy/AdvReac Type Severity Reaction Status Date / Time lisinopril Allergy Severe lip Verified 04/04/22 06:21 swelling hydrochlorothiazide AdvReac Severe dizziness/ Verified 04/04/22 06:21 hyponatremia Home Medications Medication Instructions Recorded Confirmed Last Taken Type omeprazole 20 mg capsule,delayed 20 mg PO DAILY 09/07/21 04/04/22 04/04/22 06:00 History release ferrous sulfate 325 mg (65 mg 325 mg PO DAILY 10/19/21 04/04/22 03/28/22 History iron) tablet (Iron (ferrous sulfate)) atorvastatin 10 mg tablet (Lipitor) 10 mg PO DAILY 03/17/22 04/04/22 Unknown History finasteride 5 mg tablet (Proscar) 5 mg PO DAILY 03/17/22 04/04/22 Unknown History sildenafil 100 mg tablet (Viagra) 100 mg PO DAILY PRN sexual activity 03/17/22 04/04/22 Unknown History simethicone 180 mg capsule (Gas 180 mg PO TID 03/17/22 04/04/22 Unknown History Relief (simethicone)) tamsulosin 0.4 mg capsule (Flomax) 0.4 mg PO BEDTIME 03/17/22 04/04/22 Unknown History Exam Exam Date and Time: April 03, 2022 1211 Height,Weight and Vital Signs: Height 5 ft 6.5 in Weight 56.245 kg Pertinent Lab Results Pertinent Lab Results: Laboratory Tests 02/10/22 02/11/22 09:31 07:15 WBC 4.2 L Hgb 14.9 Hct 42.7 Plt Count 271 Sodium 137 Potassium 4.3 Chloride 96 Carbon Dioxide 29 BUN 9 Creatinine 0.87 Assessment and Plan Assessment Anesthesia Assessment: Chart Reviewed Final Anesthetic Review Family History of Problems with Anesthesia: No History of Problems with Anesthesia: No Documented by User: Mel Metzger MD 04/04/22 07:36 PMF Active Problems Active Problems: All Active Problems (Updated 03/30/22 @ 10:29 by Jenna Maurice RN) Scrotal itching (Acute) Facial swelling (Acute) Swelling of mandible (Acute) Tinea pedis, recurrent (Acute) Tinea corporis (Acute) Balanitis (Acute) Dysuria (Acute) HTN (hypertension) (Acute) Hyponatremia (Acute) Constipation (Acute) Erectile dysfunction (Acute) Anemia (Chronic) Rectal bleeding (Acute) Fatigue (Acute) Low vitamin D level (Acute) Melena (Acute) Screening for diabetes mellitus (DM) (Acute) Nocturia (Acute) External hemorrhoid (Acute) S/P right colectomy (Acute) Constipation (Acute) GI bleed (Acute) Skin rash (Acute) Abdominal bloating (Acute) Nocturia (Acute) Light headed (Acute) Macrocytic anemia (Acute) Chronic fatigue (Acute) Hyperlipidemia (Acute) Adenocarcinoma of cecum (Acute) BPH GERD Past Medical History Medical History Adenocarcinoma of cecum Anemia History of urinary frequency HTN (hypertension) Hyperlipidemia Family History Family History Father No problems noted. Mother No problems noted. Brother Cardiovascular disease Diabetes Surgical History Surgical History H/O colonoscopy History of colon resection (~2020) History of esophagogastroduodenoscopy (EGD) History of left inguinal hernia repair (~02/2018) Hx of eye surgery Social History Social History Household Members: Significant Other Housing: House Are you a primary healthcare administrative assistant to a significant other at home: No Do you presently have visiting nurse or other home services: No Alcohol intake: current Alcohol intake frequency: 0-2 drinks per day Alcohol type: wine Patient Tobacco Use Status: Never used Tobacco e-Cigarette/Vaping Use: Never Used Second Hand Smoke Exposure: No Use of substances other than those prescribed or required for medical reasons: No Are you DNR?: No Advance Directives: Yes Advance Directives on File: Yes Advance Directives Date on File: 04/12/21 service: No Current occupational status: retired Cognitive needs: No Hearing needs: No Vision needs: Yes (glasses) Meds Allergies Allergy/AdvReac Type Severity Reaction Status Date / Time lisinopril Allergy Severe lip Verified 04/04/22 06:21 swelling hydrochlorothiazide AdvReac Severe dizziness/ Verified 04/04/22 06:21 hyponatremia Home Medications Medication Instructions Recorded Confirmed Last Taken Type omeprazole 20 mg capsule,delayed 20 mg PO DAILY 09/07/21 04/04/22 04/04/22 06:00 History release ferrous sulfate 325 mg (65 mg 325 mg PO DAILY 10/19/21 04/04/22 03/28/22 History iron) tablet (Iron (ferrous sulfate)) atorvastatin 10 mg tablet (Lipitor) 10 mg PO DAILY 03/17/22 04/04/22 Unknown History finasteride 5 mg tablet (Proscar) 5 mg PO DAILY 03/17/22 04/04/22 Unknown History sildenafil 100 mg tablet (Viagra) 100 mg PO DAILY PRN sexual activity 03/17/22 04/04/22 Unknown History simethicone 180 mg capsule (Gas 180 mg PO TID 03/17/22 04/04/22 Unknown History Relief (simethicone)) tamsulosin 0.4 mg capsule (Flomax) 0.4 mg PO BEDTIME 03/17/22 04/04/22 Unknown History Exam Height,Weight and Vital Signs: Height 5 ft 6.5 in Weight 56.245 kg Vital Signs Temp Pulse Resp BP Pulse Ox O2 Del Method 04/04/22 06:28 98.4 F 105 H 16 157/88 H 98 Room Air Airway Mallampati Class: II TM Dist: >3cm Neck ROM: Full Loose/Missing/Broken Teeth: No Heart: RRR Lungs: CTAB Assessment and Plan Assessment Anesthesia Assessment: Anesthesia Plan Discussed Final Anesthetic Review NPO: Yes ASA Class: II Final Preanesthetic Review: No Changes in Pt Med Stat, Meds/Allgs Chart Reviewed, Consent Obtained/Reviewed and Anes Risks/Benef Reviewed Patient Risk: Low Procedure Risk: Low Assessment/Block/Sedation in SS: Assess/Block/Sedation-SS Anesthetic Plan Anesthetic Plan: MAC: Disposition: Standard PACU
[2022-04-04 06:28] VITALS: BP 157/88; PULSE 105; RESP 16; TEMP 36.9; O2SAT 98
[2022-04-04] MEDS: Lactated Ringers 1,000 ML 100 ML IVCONT (06:44)
--- NOTE | 2022-04-04 07:29 | MHC.SHP ---
Pre-Procedural Eval Section A Date of Service: 04/04/22 Section B Chief Complaint: neoplasm of colon Details of Present Illness: see H&P no changes Relevant Family History (Specify if Yes): No Relevant Social History: None Present Medications: see Short Stay Collaborative assessment Medical History: No relevant PMH History of Previous Operations: No relevant previous surgery Allergies: Allergies Allergy/AdvReac Type Severity Reaction Status Date / Time lisinopril Allergy Severe lip Verified 04/04/22 06:21 swelling hydrochlorothiazide AdvReac Severe dizziness/ Verified 04/04/22 06:21 hyponatremia Review of Systems Sugical H&P ROS: Negative: Constitution, Cardiovascular, Respiratory, Neurological, Psychiatric, Hem-Onc, Allergic/Immunologic, Gastrointestinal, Genitourinary, Musculoskeletal, Integumentary, Endocrine and Eyes/Ears/Nose/Throat Exam Surgical H&P Exam: Normal: HEENT, Normal: Heart, Normal: Lungs, Normal: Extremities, Normal: Abdomen, Normal: Skin and Normal: Neurological Plan Diagnosis/Plan: Unchanged I have reviewed the history and physical and performed a pertinent physical examination on my patient. No changes have occurred unless specified.
--- NOTE | 2022-04-04 07:56 | P.BOP_ITS ---
Brief Operative Note Date of Service: 04/04/22 Pre-op diagnosis: colon cancer screening Procedure: colonoscopy Surgeon: Husam Kong Anesthesia: MAC Was an Production Line Assembler used for this Procedure?: No Estimated blood loss (mL): 0 Pathology: none sent Condition: stable Disposition: PACU
[2022-04-04 07:57] VITALS: BP 108/66; PULSE 82; RESP 16; TEMP 36.1; O2SAT 99
[2022-04-04 08:12] VITALS: BP 149/83; PULSE 82; RESP 16; TEMP 36.1; O2SAT 99
--- NOTE | 2022-04-04 09:32 | OP_ITS ---
SURGEON: Husam Kong MD INDICATIONS: Adenocarcinoma of the cecum, colon cancer surveillance. PREOPERATIVE DIAGNOSIS: POSTOPERATIVE DIAGNOSIS: PROCEDURE PERFORMED: ESTIMATED BLOOD LOSS: COMPLICATIONS: ANESTHESIA: ASSISTANTS: SPECIMENS: PROCEDURE: Colonoscopy to the neoterminal ileum on 04/04/22. MEDICATIONS: Monitored anesthesia care. DESCRIPTION OF PROCEDURE: History and physical performed. The risks and benefits of the procedure were explained to the patient. Informed consent was obtained. The patient was placed in the left lateral decubitus position. A digital rectal exam was performed that showed mild anal stenosis. The Olympus pediatric video colonoscope was introduced into the rectum and advanced to the ileocolonic anastomosis without difficulty. Examination was performed. The scope was removed. He tolerated the procedure well and was taken to recovery in stable condition. FINDINGS: The neoterminal ileum was normal. There was a widely patent ileocolonic anastomosis at about 90 cm from the anal verge. There was some visible staple material there. There was no evidence of recurrent adenocarcinoma. The quality of the prep was good. There was moderate sigmoid diverticulosis with scattered diverticula throughout the remainder of the colon. Retroflexed examination showed [id number] sized internal hemorrhoids. IMPRESSION: Normal colonoscopy. RECOMMENDATIONS: 1. Follow up as needed. 2. Consider repeat colonoscopy in 3 years. MD ЕЛЕНА Zamudio/JIAN / [id number] MTDD
== END 2022-04-04 08:51 | disposition home or self-care (01) ==
PROVIDERS: PCP Physician Assistant; Visit Provider Internal Medicine Gastroenterology
PROC: 0DJD8ZZ Inspection of Lower Intestinal Tract, Via Natural or Artificial Opening Endoscopic (ICD-10-PCS; CPT 45378; principal; 2022-04-04 07:30)
DX: Z12.11 Encounter for screening for malignant neoplasm of colon (principal); Z85.038 Personal history of other malignant neoplasm of large intestine; Z90.49 Acquired absence of other specified parts of digestive tract; Z98.0 Intestinal bypass and anastomosis status; K57.30 Diverticulosis of large intestine without perforation or abscess without bleeding; K64.8 Other hemorrhoids; K21.9 Gastro-esophageal reflux disease without esophagitis; I10 Essential (primary) hypertension; E78.00 Pure hypercholesterolemia, unspecified; D50.9 Iron deficiency anemia, unspecified; Z79.899 Other long term (current) drug therapy
CPT/HCPCS: G0105

== ENCOUNTER 2022-05-04 06:53 | Outpatient (REF) | payer MEDICARE, SELFPAY ==
[2022-05-04 09:16] LABS: Hematocrit 40.8 % (42.0-52.0); Hemoglobin 13.9 g/dl (14.0-18.0); Mean Corpuscular HGB Conc 34.1 g/dl (31.0-36.0); Mean Corpuscular Hemoglobin 34.5 pg (27.0-33.0); Mean Corpuscular Volume 101.2 fL (80.0-98.0); Mean Platelet Volume 10.9 fL (9.4-12.4); Platelet Count 284 X10*3/uL (160-400); Red Blood Count 4.03 X10*6/uL (4.60-5.80); Red Cell Distribution Width 14.1 % (11.0-16.0)
[2022-05-04 09:42] LABS: Alanine Aminotransferase 15 U/L (0-40); Albumin Level 4.6 g/dL (3.5-5.0); Alkaline Phosphatase 60 U/L (39-117); Anion Gap 16 (12-20); Aspartate Amino Transferase 27 U/L (5-37); Bilirubin Total 1.1 mg/dL (0.0-1.0); Blood Urea Nitrogen 13 mg/dL (9-16); Calcium 9.7 mg/dL (8.4-10.2); Carbon Dioxide 27 mmol/L (22-29); Chloride 101 mmol/L (96-108); Estimated Glomerular Filt Rate > 60; Glucose Fasting 75 mg/dL (60-99); Iron 149 mcg/dL (45-160); Percent Iron Saturation 45 % (15-50); Potassium 4.4 mmol/L (3.3-5.1); Sodium 140 mmol/L (135-145); Total Iron Binding Capacity 333 mcg/dL (228-428); Total Protein 7.5 g/dL (6.5-8.0); Unsaturated Iron Binding 184 ug/dL
== END 2022-05-04 06:54 | disposition home or self-care (01) ==
LOC: HO.LAB 06:53
PROVIDERS: PCP Physician Assistant; Visit Provider Physician Assistant
DX: D50.0 Iron deficiency anemia secondary to blood loss (chronic) (principal); R79.89 Other specified abnormal findings of blood chemistry; I10 Essential (primary) hypertension
CPT/HCPCS: 36415; 80053; 82306; 83540; 85027

== ENCOUNTER 2022-06-11 09:04 | Emergency (ER) | payer MEDICARE, SELFPAY ==
--- NOTE | ~2022-06-11 | XR_ITS ---
EXAMINATION: XR CHEST CLINICAL INFORMATION: diarrhea, weakness COMPARISON: 05/28/2021 TECHNIQUE: PA view of the chest. FINDINGS: Biapical pleural scarring. Lungs are mildly hyperexpanded. No consolidation, pneumothorax, or pleural effusion. 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 Cardiac and mediastinal contours are normal. Pulmonary vasculature is unremarkable. Trachea is midline. Minimal degenerative spondylosis in the thoracic spine. XR/XR chest 1V IMPRESSION: No acute cardiopulmonary findings.
[2022-06-11 09:16] VITALS: BP 162/90; PULSE 110; RESP 16; TEMP 36.6; O2SAT 98; BMI 19.4
--- NOTE | 2022-06-11 09:21 | ECG_ITS ---
Test Reason : WEAKNESS Blood Pressure : / mmHG Vent. Rate : 093 BPM Atrial Rate : 093 BPM P-R Int : 166 ms QRS Dur : 076 ms QT Int : 350 ms P-R-T Axes : 073 035 058 degrees QTc Int : 435 ms Normal sinus rhythm Nonspecific ST abnormality Abnormal ECG When compared with ECG of 20-OCT-2021 06:48, No significant change was found Referred By: Generic ED Physician Electronically Signed By:PAOLA OCHOA MD
[2022-06-11 09:37] LABS: MANUAL DIFF FLAG NO
[2022-06-11 09:54] LABS: Anion Gap 20 (12-20); Blood Urea Nitrogen 13 mg/dL (9-16); Calcium 9.8 mg/dL (8.4-10.2); Carbon Dioxide 23 mmol/L (22-29); Chloride 100 mmol/L (96-108); Creatinine Clr Calc Pharmacy 54.6; Estimated Glomerular Filt Rate > 60; Glucose Random 88 mg/dL (60-115); Potassium 4.3 mmol/L (3.3-5.1); Sodium 139 mmol/L (135-145)
[2022-06-11 10:00] LABS: Influenza A Negative (Negative); Influenza B2 Negative (Negative)
[2022-06-11 10:01] LABS: COVID-19 Test Positive (Negative); IDNOW Serial# 55D5AD1C; Troponin-I High Sensitivity < 3.5 ng/L (<3.5-35.0)
[2022-06-11 10:07] LABS: Basophils Absolute Auto 0.1 X10*3/uL (0.0-0.2); Basophils Percent Auto 0.7 % (0-2); Eosinophils Percent Auto 0.5 % (0-4); Hematocrit 44.7 % (42.0-52.0); Hemoglobin 15.3 g/dl (14.0-18.0); Imm Gran Abs Auto 0.04 X10*3/uL (0.00-0.03); Imm Gran Pct Auto 0.5 % (0.0-0.4); Lymphocytes Percent Auto 13.9 % (20-40); Mean Corpuscular HGB Conc 34.2 g/dl (31.0-36.0); Mean Corpuscular Hemoglobin 34.4 pg (27.0-33.0); Mean Corpuscular Volume 100.4 fL (80.0-98.0); Mean Platelet Volume 11.7 fL (9.4-12.4); Monocytes Absolute Auto 0.5 X10*3/uL (0.1-1.2); Monocytes Percent Auto 6.8 % (2-11); Neutrophils Absolute Auto 5.8 x10*3/uL (2.0-8.3); Neutrophils Percent Auto 77.6 % (45-73); Platelet Count 215 X10*3/uL (160-400); Red Blood Count 4.45 X10*6/uL (4.60-5.80); Red Cell Distribution Width 14.5 % (11.0-16.0); White Blood Count 7.5 X10*3/uL (4.8-10.8)
--- NOTE | 2022-06-11 12:18 | ED_ITS ---
HPI - General Adult General Chief complaint: General Medical Stated complaint: feeling clamey, shaky Time Seen by Provider: 06/11/22 11:58 Source: patient Mode of arrival: ambulatory Limitations: no limitations History of Present Illness HPI narrative: 81 yo male with history of HTN, HLD, BPH here with complaints of here with reports of malaise, diarrhea (1 episode daily), cough x 2 days. No fevers, chills, abdominal pain, vomiting, chest pain or shortness of breath. Received COVID vaccination x 4 (last one Sunday) Related Data Home Medications Medication Instructions Recorded Confirmed omeprazole 20 mg capsule,delayed 20 mg PO DAILY 09/07/21 05/16/22 release ferrous sulfate 325 mg (65 mg 325 mg PO DAILY 10/19/21 05/16/22 iron) tablet (Iron (ferrous sulfate)) atorvastatin 10 mg tablet (Lipitor) 10 mg PO DAILY 03/17/22 05/16/22 finasteride 5 mg tablet (Proscar) 5 mg PO DAILY 03/17/22 05/16/22 sildenafil 100 mg tablet (Viagra) 100 mg PO DAILY PRN sexual activity 03/17/22 05/16/22 simethicone 180 mg capsule (Gas 180 mg PO TID 03/17/22 05/16/22 Relief (simethicone)) Previous Rx's Medication Instructions Recorded docusate sodium 100 mg capsule 100 mg PO BID PRN constipation #30 07/01/21 (Colace) caps cyanocobalamin (vitamin B-12) 1,000 mcg PO DAILY 90 days #90 caps 12/29/21 1,000 mcg capsule amlodipine 5 mg tablet (Norvasc) 5 mg PO DAILY htn 90 days #90 tabs 03/27/22 tamsulosin 0.4 mg capsule (Flomax) 0.4 mg PO BEDTIME #90 caps 04/25/22 cholecalciferol (vitamin D3) 50 50 mcg PO DAILY 90 days #90 caps 05/16/22 mcg (2,000 unit) capsule ascorbic acid (vitamin C) 250 mg 250 mg PO DAILY 90 days #90 tabs 05/29/22 tablet nirmatrelvir 300 mg (150 mg See Rx Instructions PO .COMPLEX 06/11/22 x2)-ritonavir 100 mg tablet,dose #30 ea pack(EUA) (Paxlovid) Allergies Allergy/AdvReac Type Severity Reaction Status Date / Time lisinopril Allergy Severe lip Verified 05/16/22 08:47 swelling hydrochlorothiazide AdvReac Severe dizziness/ Verified 05/16/22 08:47 hyponatremia Review of Systems Review of Systems: Yes all other systems are reviewed and are negative Constitutional: Constitutional: Reports no additional constitutional complaints, Denies body ache(s), Denies chills, Denies fever(s), Denies headache(s) and Reports weakness Eyes: Eyes: Reports no additional eye complaints and Denies change in vision ENT: Reports system reviewed and no additional complaints, except as docu mented, Denies dizziness, Denies headache(s), Denies nasal congestion, Denies nasal discharge and Denies neck pain Cardiovascular: Cardiovascular: Reports no additional cardiovascular complaints, Denies chest pain, Denies leg edema and Denies dyspnea Respiratory: Respiratory: Reports no additional respiratory complaints, Denies cough and Denies dyspnea Gastrointestinal: Gastrointestinal: Reports no additional gastrointestinal complaints, Denies abdominal pain, Reports diarrhea, Denies nausea and Denies vomiting Genitourinary: Genitourinary: Denies urinary incontinence Musculoskeletal: Musculoskeletal: Reports no additional musculoskeletal complaints, Denies back pain, Denies arthralgias, Denies joint swelling, Denies neck pain, Denies numbness and Denies tingling Integumentary/Breasts: Skin/Breast: Reports system reviewed and no additional complaints, except as docu and Denies rash Neurologic: Reports system reviewed and no additional complaints, except as documented, Denies dizziness, Denies headache(s), Denies numbness, Denies t ingling and Reports weakness PMFSH Past Medical History Attestation statement: The following information was validated with the patient. Source: old records reviewed and nursing notes reviewed Medical History Adenocarcinoma of cecum Anemia History of urinary frequency HTN (hypertension) Hyperlipidemia Surgical History H/O colonoscopy History of colon resection (~2020) History of esophagogastroduodenoscopy (EGD) History of left inguinal hernia repair (~02/2018) Hx of eye surgery Family History Family History Father No problems noted. Mother No problems noted. Brother Cardiovascular disease Diabetes Social History Social History Household Members: Significant Other Housing: House Are you a primary acute care assistant to a significant other at home: No Do you presently have visiting nurse or other home services: No Alcohol intake: current Alcohol intake frequency: 0-2 drinks per day Alcohol type: wine Patient Tobacco Use Status: Never used Tobacco e-Cigarette/Vaping Use: Never Used Second Hand Smoke Exposure: No Advance Directives: Yes Advance Directives on File: Yes Advance Directives Date on File: 04/12/21 service: No Current occupational status: retired Cognitive needs: No Hearing needs: No Vision needs: Yes (glasses) Physical Exam ED Vital Signs: Vital Signs - 24 hr 06/11/22 09:16 06/11/22 12:19 Temperature 97.8 F 97.8 F Pulse Rate 110 H 91 Respiratory Rate 16 14 Blood Pressure 162/90 H 166/89 H Pulse Oximetry 98 98 Oxygen Delivery Method Room Air Room Air BMI result Body Mass Index 19.4 Const General: cooperative, healthy appearing, comfortable and no acute distress Orientation/consciousness: patient oriented x3 Limitations: no limitations HENVT Head: Yes normal to inspection Ears: hearing grossly normal bilaterally General nose exam: Normal external nose present Face and sinus: Yes normal facial exam Mouth: Normal oral and palatal mucosa present Throat: Yes posterior oropharynx normal, Yes tonsils normal and Yes uvula midli ne Eyes General: appearance normal, both eyes and all related structures Pupils: Equal, round and reactive pupils present Neck Neck: Yes normal visual inspection, Yes full ROM, Yes no lymphadenopathy and Yes no meningeal signs Chest Chest palpation & inspection: normal inspection of the chest Resp Effort & Inspection: normal respiratory effort Auscultation: clear to auscultation bilaterally Cardio Rate: regular rate Rhythm: regular rhythm Peripheral pulses: Peripheral pulses 2+ throughout GI Inspection: Yes normal to inspection Palpation (GI): Soft to palpation and nontender General: Yes no CVA tenderness Back/Spine/Pelvis Back: no CVA tenderness Thoracic/Lumbar Spine: thoracic and lumbar spine normal to inspection Skin General skin exam: no rashes or lesions noted Neuro General: patient oriented x3, moves all extremities and no meningeal signs Cranial nerves: Yes CN's II-XII intact bilaterally and Yes Equal, round and reactive pupils present Cognition (Neuro): normal cognition Gait exam (Neuro): Normal gait present Motor exam (neuro): 5/5 motor strength present throughout Sensory Exam: Normal double simultaneous stimulation for sensation Extrem General: Yes normal to inspection, Yes no pedal edema and Yes no calf tenderness Course Course Course Narrative: COVID screen is positive. No hypoxia or tachypnea. Lungs are clear. Chest x- ray negative for any signs of infection. Patient tells initially mildly tachycardic. Repeat heart rate is normal. Discussed Paxlovid with the patient. We discussed there is no emergency use authorization and is not FDA approved. Patient is on Flomax and atorvastatin so recommend he hold these medications while taking the Paxlovid. Reviewed worrisome signs and symptoms when to return to the emergency room. Comfortable plan for discharge home. Medical Decision Making MDM Narrative Medical decision making narrative: 81-year-old male here with 2 days of malaise, diarrhea and cough. Abdomen soft nontender Lungs are clear Vitals are stable Will check labs, EKG, chest x-ray, COVID screen -low concern for acute abdominal process with no focal abdominal pain, abdomen and soft and nontender. Did consider diverticulitis, appendicitis, bowel obstruction Medical Records Medical records reviewed: Yes I reviewed the patient's medical records. Lab Data Lab results reviewed: Yes I reviewed the patient's lab results. Result diagrams: 06/11/22 09:32 06/11/22 09:32 Labs: Lab Results 06/11/22 06/11/22 06/11/22 Range/Units 09:32 09:32 09:32 WBC 7.5 (4.8-10.8) X10*3/uL RBC 4.45 L (4.60-5.80) X10*6/uL Hgb 15.3 (14.0-18.0) g/dl Hct 44.7 (42.0-52.0) % MCV 100.4 H (80.0-98.0) fL MCH 34.4 H (27.0-33.0) pg MCHC 34.2 (31.0-36.0) g/dl RDW 14.5 (11.0-16.0) % Plt Count 215 (160-400) X10*3/uL MPV 11.7 (9.4-12.4) fL Immature Gran % (Auto) 0.5 H (0.0-0.4) % Neut % (Auto) 77.6 H (45-73) % Lymph % (Auto) 13.9 L (20-40) % [place] % (Auto) 6.8 (2-11) % Eos % (Auto) 0.5 (0-4) % Baso % (Auto) 0.7 (0-2) % Lymph # (Auto) 1.0 L (1.2-4.9) X10*3/uL [place] # (Auto) 0.5 (0.1-1.2) X10*3/uL Eos # (Auto) 0.0 (0.0-0.4) X10*3/uL Baso # (Auto) 0.1 (0.0-0.2) X10*3/uL Abs Immat Gran (auto) 0.04 H (0.00-0.03) X10*3/uL Absolute Neuts (auto) 5.8 (2.0-8.3) x10*3/uL Absolute Nucleated RBC 0.000 (0.0-0.012) X10*3/uL Nucleated RBC % (auto) 0.0 (0.0-0.2) /100WBC Sodium 139 (135-145) mmol/L Potassium 4.3 (3.3-5.1) mmol/L Chloride 100 (96-108) mmol/L Carbon Dioxide 23 (22-29) mmol/L Anion Gap 20 (12-20) BUN 13 (9-16) mg/dL Creatinine 0.90 (0.5-1.4) mg/dL Estim Creat Clear Calc 54.6 Estimated GFR > 60 Random Glucose 88 (60-115) mg/dL Calcium 9.8 (8.4-10.2) mg/dL Troponin I High Sens < 3.5 (<3.5-35.0) ng/L COVID-19 (RADHA) (Negative) COVID-19 Clin Com Influenza Type A (STAS) (Negative) Influenza Type B (STAS) (Negative) Influenza A & B Note 06/11/22 06/11/22 Range/Units 09:32 09:32 WBC (4.8-10.8) X10*3/uL RBC (4.60-5.80) X10*6/uL Hgb (14.0-18.0) g/dl Hct (42.0-52.0) % MCV (80.0-98.0) fL MCH (27.0-33.0) pg MCHC (31.0-36.0) g/dl RDW (11.0-16.0) % Plt Count (160-400) X10*3/uL MPV (9.4-12.4) fL Immature Gran % (Auto) (0.0-0.4) % Neut % (Auto) (45-73) % Lymph % (Auto) (20-40) % [place] % (Auto) (2-11) % Eos % (Auto) (0-4) % Baso % (Auto) (0-2) % Lymph # (Auto) (1.2-4.9) X10*3/uL [place] # (Auto) (0.1-1.2) X10*3/uL Eos # (Auto) (0.0-0.4) X10*3/uL Baso # (Auto) (0.0-0.2) X10*3/uL Abs Immat Gran (auto) (0.00-0.03) X10*3/uL Absolute Neuts (auto) (2.0-8.3) x10*3/uL Absolute Nucleated RBC (0.0-0.012) X10*3/uL Nucleated RBC % (auto) (0.0-0.2) /100WBC Sodium (135-145) mmol/L Potassium (3.3-5.1) mmol/L Chloride (96-108) mmol/L Carbon Dioxide (22-29) mmol/L Anion Gap (12-20) BUN (9-16) mg/dL Creatinine (0.5-1.4) mg/dL Estim Creat Clear Calc Estimated GFR Random Glucose (60-115) mg/dL Calcium (8.4-10.2) mg/dL Troponin I High Sens (<3.5-35.0) ng/L COVID-19 (RADHA) Positive A (Negative) COVID-19 Clin Com See Note Influenza Type A (STAS) Negative (Negative) Influenza Type B (STAS) Negative (Negative) Influenza A & B Note See Note Imaging Data Chest x-ray: Attestation: I personally reviewed and interpreted this imaging study as follows: Radiologist's impression: [facility] [address] [place] [address] XRay Report Signed Patient: Cheo Amor MR#: [id number] : 1940 Acct:[id number] Age/Sex: 81 / M ADM Date: 06/11/22 Loc: .ED Attending Dr: Ordering Physician: Trey ED Physician Date of Service: 06/11/22 Procedure(s): XR chest 1V Accession Number(s): [id number] cc: Generic ED Physician~ EXAMINATION: XR CHEST CLINICAL INFORMATION: diarrhea, weakness COMPARISON: 05/28/2021 TECHNIQUE: PA view of the chest. FINDINGS: Biapical pleural scarring. Lungs are mildly hyperexpanded. No consolidation, pneumothorax, or pleural effusion. 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 Cardiac and mediastinal contours are normal. Pulmonary vasculature is unremarkable. Trachea is midline. Minimal degenerative spondylosis in the thoracic spine. XR/XR chest 1V IMPRESSION: No acute cardiopulmonary findings. ? ECG Data Attestation: I personally reviewed and interpreted this ECG as follows: Interpretation: Normal sinus rhythm with rate 93, normal HI, normal QRS, normal QT Discharge Plan Discharge Clinical Impression: COVID-19 Patient Disposition: Home, Self-Care Instructions: COVID-19 (Coronavirus Disease 2019) (ED) Additional Instructions: Hold your atorvastatin and flomax while taking the Paxlovid. Resume them after finishing the Paxlovid Tylenol for pain as needed Increase fluids, rest Return for any worsening symptoms Follow-up with her primary care doctor Your blood pressure was elevated today. Please follow-up with primary care doctor for blood pressure check once you are recovered Prescriptions: New Paxlovid (EUA) 300 mg (150 mg x 2)-100 mg tablets,dose pack See Rx Instructions .ROUTE .COMPLEX Qty: 30 0RF Rx Instructions: take TWO 150 mg tablets of nirmatrelvir with ONE 100 mg tablet of ritonavir twice daily for 5 days No Action cyanocobalamin (vitamin B-12) 1,000 mcg capsule 1,000 mcg PO DAILY 90 Days Qty: 90 1RF amlodipine [Norvasc] 5 mg tablet 5 mg PO DAILY 90 Days Qty: 90 0RF tamsulosin [Flomax] 0.4 mg capsule 0.4 mg PO BEDTIME Qty: 90 2RF ascorbic acid (vitamin C) 250 mg tablet 250 mg PO DAILY 90 Days Qty: 90 3RF atorvastatin [Lipitor] 10 mg tablet 10 mg PO DAILY simethicone [Gas Relief (simethicone)] 180 mg capsule 180 mg PO TID sildenafil [Viagra] 100 mg tablet 100 mg PO DAILY PRN (Reason: sexual activity) Rx Instructions: administer 30 minutes to 4 hours before activity finasteride [Proscar] 5 mg tablet 5 mg PO DAILY docusate sodium [Colace] 100 mg capsule 100 mg PO BID PRN (Reason: constipation) Qty: 30 0RF ferrous sulfate [Iron (ferrous sulfate)] 325 mg (65 mg iron) tablet 325 mg PO DAILY omeprazole 20 mg capsule,delayed release(DR/EC) 20 mg PO DAILY cholecalciferol (vitamin D3) 50 mcg (2,000 unit) capsule 50 mcg PO DAILY 90 Days Qty: 90 3RF Referrals: Rocael Reeves PA-C [Primary Care Provider] - 1 week Interventions: ED Discharge Assessment Last Done: 06/11/22 13:12 Discharge Date/Time: 06/11/22 13:14
[2022-06-11 12:19] VITALS: BP 166/89; PULSE 91; RESP 14; TEMP 36.6; O2SAT 98
== END 2022-06-11 13:14 | disposition home or self-care (01) ==
PROVIDERS: Emergency Provider Emergency Medicine; PCP Physician Assistant
DX: U07.1 COVID-19 (principal); R53.1 Weakness; R19.7 Diarrhea, unspecified; Z79.899 Other long term (current) drug therapy
CPT/HCPCS: 36415; 71045; 80048; 84484; 85025; 87502; 87635; 93005; 99284

== ENCOUNTER 2022-07-05 08:51 | Outpatient (REF) | payer MEDICARE, SELFPAY ==
[2022-07-05 09:27] LABS: Hematocrit 44.7 % (42.0-52.0); Hemoglobin 15.2 g/dl (14.0-18.0); Mean Corpuscular Hemoglobin 34.5 pg (27.0-33.0); Mean Corpuscular Volume 101.6 fL (80.0-98.0); Mean Platelet Volume 10.6 fL (9.4-12.4); Platelet Count 233 X10*3/uL (160-400); Red Cell Distribution Width 14.1 % (11.0-16.0); White Blood Count 4.2 X10*3/uL (4.8-10.8)
[2022-07-05 09:58] LABS: Alanine Aminotransferase 22 U/L (0-40); Albumin Level 4.6 g/dL (3.5-5.0); Alkaline Phosphatase 72 U/L (39-117); Anion Gap 15 (12-20); Aspartate Amino Transferase 39 U/L (5-37); Bilirubin Direct 0.5 mg/dL (0.0-0.5); Bilirubin Total 1.6 mg/dL (0.0-1.0); Blood Urea Nitrogen 10 mg/dL (9-16); Calcium 9.7 mg/dL (8.4-10.2); Carbon Dioxide 27 mmol/L (22-29); Chloride 100 mmol/L (96-108); Estimated Glomerular Filt Rate > 60; Glucose Random 103 mg/dL (60-115); Potassium 3.7 mmol/L (3.3-5.1); Sodium 138 mmol/L (135-145); Total Protein 7.5 g/dL (6.5-8.0)
== END 2022-07-05 08:52 | disposition home or self-care (01) ==
LOC: HO.LAB 08:51
PROVIDERS: PCP Physician Assistant; Visit Provider Internal Medicine
DX: I10 Essential (primary) hypertension (principal)
CPT/HCPCS: 36415; 80048; 80076; 85027

== ENCOUNTER 2022-08-02 18:43 | Emergency (ER) | payer MEDICARE, SELFPAY ==
[2022-08-02] VITALS (9 sets, daily range): BP systolic 135–168; BP diastolic 73–90; PULSE 88–112; RESP 14–18; TEMP 36.4–36.7; O2SAT 96–98; BMI 19.7
--- NOTE | ~2022-08-02 | XR_ITS ---
EXAMINATION: XR CHEST CLINICAL INFORMATION: Dizziness COMPARISON: Chest x-ray on 06/11/2022 TECHNIQUE: 2 views of the chest were obtained. FINDINGS: No significant abnormality is noted involving the heart, lungs, mediastinum, bony thorax or soft tissues. XR/XR chest 2V IMPRESSION: Unremarkable examination.
--- NOTE | ~2022-08-02 | CT_ITS ---
EXAMINATION: CT HEAD WITHOUT CONTRAST CLINICAL INFORMATION: Dizziness since today. COMPARISON: None TECHNIQUE: Contiguous axial imaging was performed from the skull base to vertex without intravenous administration of contrast. This CT examination was performed using dose optimization techniques as appropriate, variously including the following: *Automated exposure control *Adjustment of mA and/or kV according to patient size (this includes techniques or standardized protocols for targeted exams where dose is matched to indication/reason for exam; i.e. extremities or head) *Use of iterative reconstruction technique DLP: 600 mGy-cm FINDINGS: No acute intra-abdominal axial, extra-axial bleed, masses or midline shift. There is no acute infarction in evolution. No edema. The lateral ventricles are symmetrical in size and configuration without enlargement. Bone windows reveal no calvarial abnormality. There is no scalp soft tissue abnormality. CT/CT head/brain wo IV con IMPRESSION: No acute intracranial process seen.
--- NOTE | 2022-08-02 18:47 | ECG_ITS ---
Test Reason : DIZZINESS Blood Pressure : / mmHG Vent. Rate : 090 BPM Atrial Rate : 090 BPM P-R Int : 176 ms QRS Dur : 078 ms QT Int : 358 ms P-R-T Axes : 050 031 066 degrees QTc Int : 437 ms Normal sinus rhythm Normal ECG When compared with ECG of 11-JUN-2022 09:24, No significant change was found Referred By: Niesha Black Electronically Signed By:VIRGINIA STEVEN MD
--- NOTE | 2022-08-02 19:00 | ED.DIZZY ---
HPI - Dizziness General Chief Complaint: Dizziness Stated Complaint: Dizzy, faint, dehydrated? Time Seen by Provider: 08/02/22 19:13 Related Data Home Medications Medication Instructions Recorded Confirmed omeprazole 20 mg capsule,delayed 20 mg PO DAILY 09/07/21 05/16/22 release ferrous sulfate 325 mg (65 mg 325 mg PO DAILY 10/19/21 05/16/22 iron) tablet (Iron (ferrous sulfate)) sildenafil 100 mg tablet (Viagra) 100 mg PO DAILY PRN sexual activity 03/17/22 05/16/22 Previous Rx's Medication Instructions Recorded docusate sodium 100 mg capsule 100 mg PO BID PRN constipation #30 07/01/21 (Colace) caps tamsulosin 0.4 mg capsule (Flomax) 0.4 mg PO BEDTIME #90 caps 04/25/22 ascorbic acid (vitamin C) 250 mg 250 mg PO DAILY 90 days #90 tabs 05/29/22 tablet amlodipine 5 mg tablet (Norvasc) 5 mg PO DAILY htn 90 days #90 tabs 06/20/22 cyanocobalamin (vitamin B-12) 1,000 mcg PO DAILY 90 days #90 caps 06/22/22 1,000 mcg capsule atorvastatin 10 mg tablet (Lipitor) 10 mg PO DAILY #90 tabs 07/03/22 simethicone 180 mg capsule 180 mg PO TID 30 days #90 caps 07/03/22 finasteride 5 mg tablet (Proscar) 5 mg PO DAILY #90 tabs 07/07/22 cholecalciferol (vitamin D3) 50 50 mcg PO DAILY 90 days #90 caps 07/24/22 mcg (2,000 unit) capsule Allergies Allergy/AdvReac Type Severity Reaction Status Date / Time lisinopril Allergy Severe lip Verified 07/04/22 15:27 swelling hydrochlorothiazide AdvReac Severe dizziness/ Verified 07/04/22 15:27 hyponatremia PMFSH Past Medical History Medical History Adenocarcinoma of cecum Anemia History of urinary frequency HTN (hypertension) Hyperlipidemia Surgical History H/O colonoscopy History of colon resection (~2020) History of esophagogastroduodenoscopy (EGD) History of left inguinal hernia repair (~02/2018) Hx of eye surgery Family History Family History Father No problems noted. Mother No problems noted. Brother Cardiovascular disease Diabetes Social History Social History Household Members: Significant Other Housing: House Are you a primary infant caregiver to a significant other at home: No Do you presently have visiting nurse or other home services: No Alcohol intake: never Patient Tobacco Use Status: Never used Tobacco Smoked in Last 30 Days: No e-Cigarette/Vaping Use: Never Used Second Hand Smoke Exposure: No Use of substances other than those prescribed or required for medical reasons: No Advance Directives: Yes Advance Directives on File: Yes Advance Directives Date on File: 04/12/21 service: No Current occupational status: retired Cognitive needs: No Hearing needs: No Vision needs: Yes (glasses) Physical Exam Vital Signs: Vital Signs: Last Vital Signs Temp 98.0 F 08/02/22 19:39 Pulse 94 08/02/22 19:39 Resp 14 08/02/22 19:39 BP 155/81 H 08/02/22 19:39 Pulse Ox 98 08/02/22 19:39 O2 Del Method 08/02/22 19:39 BMI result Body Mass Index 19.7 Course Course Course Narrative: RME-18:50PM - 81yoM c PMHx of HTN, hyperlipidemia, adenocarcinoma of cecum, was presenting to the ER with at bedside with complaints of dizziness that started when he woke up at 03:00 last night. Reports that he was unable to get up from his bed at that time. He reports since then he has had generalized weakness and fatigue. Reports that around 22:00 he went to bed and he was feeling completely normal last night. On exam patient has a normal steady gait. No focal neuro deficits are noted. Alert and oriented x3. Negative pronator drift. Negative Romberg test. Normal strength on all 4 extremities on my exam. Normal sensation all 4 extremities. Cranial nerves intact. Lungs clear to auscultation. CV RRR. Plan: Patient will have labs, chest x-ray, CT scan of brain and an EKG then patient will be seen in the ER for further evaluation treatment. Medical Decision Making Lab Data 08/02/22 19:31 08/02/22 19:31 Labs: Lab Results 08/02/22 08/02/22 08/02/22 Range/Units 19:31 19:31 19:31 WBC 5.7 (4.8-10.8) X10*3/uL RBC 3.99 L (4.60-5.80) X10*6/uL Hgb 13.7 L (14.0-18.0) g/dl Hct 39.6 L (42.0-52.0) % MCV 99.2 H (80.0-98.0) fL MCH 34.3 H (27.0-33.0) pg MCHC 34.6 (31.0-36.0) g/dl RDW 13.8 (11.0-16.0) % Plt Count 237 (160-400) X10*3/uL MPV 10.3 (9.4-12.4) fL Immature Gran % (Auto) 0.7 H (0.0-0.4) % Neut % (Auto) 68.4 (45-73) % Lymph % (Auto) 21.2 (20-40) % [place] % (Auto) 8.8 (2-11) % Eos % (Auto) 0.5 (0-4) % Baso % (Auto) 0.4 (0-2) % Lymph # (Auto) 1.2 (1.2-4.9) X10*3/uL [place] # (Auto) 0.5 (0.1-1.2) X10*3/uL Eos # (Auto) 0.0 (0.0-0.4) X10*3/uL Baso # (Auto) 0.0 (0.0-0.2) X10*3/uL Abs Immat Gran (auto) 0.04 H (0.00-0.03) X10*3/uL Absolute Neuts (auto) 3.9 (2.0-8.3) x10*3/uL Absolute Nucleated RBC 0.000 (0.0-0.012) X10*3/uL Nucleated RBC % (auto) 0.0 (0.0-0.2) /100WBC PT 10.2 (10.0-13.1) SEC INR 0.9 (0.9-1.1) Sodium 134 L (135-145) mmol/L Potassium 4.1 (3.3-5.1) mmol/L Chloride 102 (96-108) mmol/L Carbon Dioxide 23 (22-29) mmol/L Anion Gap 13 (12-20) BUN 16 (9-16) mg/dL Creatinine 0.90 (0.5-1.4) mg/dL Estim Creat Clear Calc 53.8 Estimated GFR > 60 Random Glucose 100 (60-115) mg/dL Calcium 9.4 (8.4-10.2) mg/dL Magnesium 2.0 (1.6-2.6) mg/dL Total Bilirubin 0.7 (0.0-1.0) mg/dL AST 25 (5-37) U/L ALT 18 (0-40) U/L Alkaline Phosphatase 51 (39-117) U/L Troponin I High Sens (<3.5-35.0) ng/L Total Protein 7.0 (6.5-8.0) g/dL Albumin 4.2 (3.5-5.0) g/dL 08/02/22 Range/Units 19:31 WBC (4.8-10.8) X10*3/uL RBC (4.60-5.80) X10*6/uL Hgb (14.0-18.0) g/dl Hct (42.0-52.0) % MCV (80.0-98.0) fL MCH (27.0-33.0) pg MCHC (31.0-36.0) g/dl RDW (11.0-16.0) % Plt Count (160-400) X10*3/uL MPV (9.4-12.4) fL Immature Gran % (Auto) (0.0-0.4) % Neut % (Auto) (45-73) % Lymph % (Auto) (20-40) % [place] % (Auto) (2-11) % Eos % (Auto) (0-4) % Baso % (Auto) (0-2) % Lymph # (Auto) (1.2-4.9) X10*3/uL [place] # (Auto) (0.1-1.2) X10*3/uL Eos # (Auto) (0.0-0.4) X10*3/uL Baso # (Auto) (0.0-0.2) X10*3/uL Abs Immat Gran (auto) (0.00-0.03) X10*3/uL Absolute Neuts (auto) (2.0-8.3) x10*3/uL Absolute Nucleated RBC (0.0-0.012) X10*3/uL Nucleated RBC % (auto) (0.0-0.2) /100WBC PT (10.0-13.1) SEC INR (0.9-1.1) Sodium (135-145) mmol/L Potassium (3.3-5.1) mmol/L Chloride (96-108) mmol/L Carbon Dioxide (22-29) mmol/L Anion Gap (12-20) BUN (9-16) mg/dL Creatinine (0.5-1.4) mg/dL Estim Creat Clear Calc Estimated GFR Random Glucose (60-115) mg/dL Calcium (8.4-10.2) mg/dL Magnesium (1.6-2.6) mg/dL Total Bilirubin (0.0-1.0) mg/dL AST (5-37) U/L ALT (0-40) U/L Alkaline Phosphatase (39-117) U/L Troponin I High Sens < 3.5 (<3.5-35.0) ng/L Total Protein (6.5-8.0) g/dL Albumin (3.5-5.0) g/dL Discharge Plan Discharge Clinical Impression: Dizziness Patient Disposition: Still a Patient Prescriptions: No Action tamsulosin [Flomax] 0.4 mg capsule 0.4 mg PO BEDTIME Qty: 90 2RF ascorbic acid (vitamin C) 250 mg tablet 250 mg PO DAILY 90 Days Qty: 90 3RF amlodipine [Norvasc] 5 mg tablet 5 mg PO DAILY 90 Days Qty: 90 0RF cyanocobalamin (vitamin B-12) 1,000 mcg capsule 1,000 mcg PO DAILY 90 Days Qty: 90 1RF atorvastatin [Lipitor] 10 mg tablet 10 mg PO DAILY Qty: 90 1RF simethicone 180 mg capsule 180 mg PO TID 30 Days Qty: 90 1RF finasteride [Proscar] 5 mg tablet 5 mg PO DAILY Qty: 90 0RF cholecalciferol (vitamin D3) 50 mcg (2,000 unit) capsule 50 mcg PO DAILY 90 Days Qty: 90 3RF sildenafil [Viagra] 100 mg tablet 100 mg PO DAILY PRN (Reason: sexual activity) Rx Instructions: administer 30 minutes to 4 hours before activity docusate sodium [Colace] 100 mg capsule 100 mg PO BID PRN (Reason: constipation) Qty: 30 0RF ferrous sulfate [Iron (ferrous sulfate)] 325 mg (65 mg iron) tablet 325 mg PO DAILY omeprazole 20 mg capsule,delayed release(DR/EC) 20 mg PO DAILY
[2022-08-02 19:36] LABS: MANUAL DIFF FLAG NO
[2022-08-02 19:38] LABS: Basophils Percent Auto 0.4 % (0-2); Eosinophils Percent Auto 0.5 % (0-4); Hematocrit 39.6 % (42.0-52.0); Hemoglobin 13.7 g/dl (14.0-18.0); Imm Gran Abs Auto 0.04 X10*3/uL (0.00-0.03); Imm Gran Pct Auto 0.7 % (0.0-0.4); Lymphocytes Absolute Auto 1.2 X10*3/uL (1.2-4.9); Lymphocytes Percent Auto 21.2 % (20-40); Mean Corpuscular HGB Conc 34.6 g/dl (31.0-36.0); Mean Corpuscular Hemoglobin 34.3 pg (27.0-33.0); Mean Corpuscular Volume 99.2 fL (80.0-98.0); Mean Platelet Volume 10.3 fL (9.4-12.4); Monocytes Absolute Auto 0.5 X10*3/uL (0.1-1.2); Monocytes Percent Auto 8.8 % (2-11); Neutrophils Absolute Auto 3.9 x10*3/uL (2.0-8.3); Neutrophils Percent Auto 68.4 % (45-73); Platelet Count 237 X10*3/uL (160-400); Red Blood Count 3.99 X10*6/uL (4.60-5.80); Red Cell Distribution Width 13.8 % (11.0-16.0); White Blood Count 5.7 X10*3/uL (4.8-10.8)
--- NOTE | 2022-08-02 19:45 | ED.DIZZY ---
HPI - Dizziness General Chief Complaint: Dizziness Stated Complaint: Dizzy, faint, dehydrated? Time Seen by Provider: 08/02/22 19:13 History of Present Illness HPI Narrative: Patient is a 81-year-old male with a history of alcohol use. Presented today with having dizziness when he sat up at night. Patient claims he is actually drinking less alcohol than usual. Has a history of iron deficiency anemia. His baseline on iron. So stool is always black. There is no diarrhea noted. No funny smell noted. No fever no chills. No chest pain. No diaphoresis. No history of being on blood thinners. No trauma. No abdominal pain. No nausea no vomiting. The symptom improved when he lies down. Patient felt weak today. He normally drinks 3 glasses of wine a day. He only drank 1 Today. Denies any other recreational drugs. He is from home. Related Data Home Medications Medication Instructions Recorded Confirmed omeprazole 20 mg capsule,delayed 20 mg PO DAILY 09/07/21 05/16/22 release ferrous sulfate 325 mg (65 mg 325 mg PO DAILY 10/19/21 05/16/22 iron) tablet (Iron (ferrous sulfate)) sildenafil 100 mg tablet (Viagra) 100 mg PO DAILY PRN sexual activity 03/17/22 05/16/22 Previous Rx's Medication Instructions Recorded docusate sodium 100 mg capsule 100 mg PO BID PRN constipation #30 07/01/21 (Colace) caps tamsulosin 0.4 mg capsule (Flomax) 0.4 mg PO BEDTIME #90 caps 04/25/22 ascorbic acid (vitamin C) 250 mg 250 mg PO DAILY 90 days #90 tabs 05/29/22 tablet amlodipine 5 mg tablet (Norvasc) 5 mg PO DAILY htn 90 days #90 tabs 06/20/22 cyanocobalamin (vitamin B-12) 1,000 mcg PO DAILY 90 days #90 caps 06/22/22 1,000 mcg capsule atorvastatin 10 mg tablet (Lipitor) 10 mg PO DAILY #90 tabs 07/03/22 simethicone 180 mg capsule 180 mg PO TID 30 days #90 caps 07/03/22 finasteride 5 mg tablet (Proscar) 5 mg PO DAILY #90 tabs 07/07/22 cholecalciferol (vitamin D3) 50 50 mcg PO DAILY 90 days #90 caps 07/24/22 mcg (2,000 unit) capsule Allergies Allergy/AdvReac Type Severity Reaction Status Date / Time lisinopril Allergy Severe lip Verified 07/04/22 15:27 swelling hydrochlorothiazide AdvReac Severe dizziness/ Verified 07/04/22 15:27 hyponatremia Review of Systems Review of Systems: No fever no chills no chest pain or shortness of breath positive dizziness when he sat up Yes all other systems are reviewed and are negative [facility] Past Medical History Attestation statement: The following information was validated with the patient. Medical History Adenocarcinoma of cecum Anemia History of urinary frequency HTN (hypertension) Hyperlipidemia Surgical History H/O colonoscopy History of colon resection (~2020) History of esophagogastroduodenoscopy (EGD) History of left inguinal hernia repair (~02/2018) Hx of eye surgery Family History Family History Father No problems noted. Mother No problems noted. Brother Cardiovascular disease Diabetes Social History Social History Household Members: Significant Other Housing: House Are you a primary child care centre director to a significant other at home: No Do you presently have visiting nurse or other home services: No Alcohol intake: never Patient Tobacco Use Status: Never used Tobacco Smoked in Last 30 Days: No e-Cigarette/Vaping Use: Never Used Second Hand Smoke Exposure: No Use of substances other than those prescribed or required for medical reasons: No Advance Directives: Yes Advance Directives on File: Yes Advance Directives Date on File: 04/12/21 service: No Current occupational status: retired Cognitive needs: No Hearing needs: No Vision needs: Yes (glasses) Physical Exam Vital Signs: Vital Signs: Last Vital Signs Temp 97.8 F 08/02/22 22:25 Pulse 88 08/02/22 22:25 Resp 14 08/02/22 22:25 BP 151/85 H 08/02/22 22:25 Pulse Ox 98 08/02/22 22:25 O2 Del Method 08/02/22 22:25 BMI result Body Mass Index 19.7 Appearance: Alert. Oriented X3. No acute distress. Eyes: Pupils equal, round and reactive to light. ENT: Pharynx normal. Neck: Normal inspection. Neck supple. No lymph nodes noted. No crepitus CVS: Normal heart rate and rhythm. Pulses normal. Normal S1 and S2 Respiratory: No respiratory distress. Breath sounds normal. No Wheezing. No rales Abdomen: Soft and nontender. No rigidity. No distention. good BS x4 Skin: Skin warm and dry. Normal skin color. Normal skin turgor. Extremities: No lower extremity edema. Neurovascular intact to all extremities. No Lacerations. No Rash Neuro: Oriented X 3. No motor deficit. No sensory deficit. Moving all extermities. No slurred speech Medications Administered Discontinued Medications Generic Name Dose Route Start Last Admin Trade Name Freq PRN Reason Stop Dose Admin Sodium Chloride 1,000 mls @ 999 mls/hr 08/02/22 21:30 08/02/22 21:54 Ns IV 08/02/22 22:30 999 mls/hr .Q1H1M JUAN Administration Medical Decision Making Differential Diagnosis patient well appearing no acute distress. Positive history of ETOH use. Have dizziness worse when he sits up. Question dehydration. Given a L of fluid here. my interpretation patient's EKG showed a sinus pattern heart rate is 90 TX QRS QT within normal limits there is no acute ST segment elevation patient's EKG is unchanged from previous. His hemoglobin is 13 there is no evidence for anemia. His electrolytes are unremarkable. Troponin is negative. History not consistent with ACS. No blood in the stool. No evidence for GI bleed. After L of IV fluids. Patient is symptomatic we feels improved. Vital signs showed a heart rate of 88. In no distress. Will discharge patient home. Lab Data MDM Lab Attestation statement: I reviewed the patient's lab results. 08/02/22 19:31 08/02/22 19:31 Labs: Lab Results 08/02/22 08/02/22 08/02/22 Range/Units 19:31 19:31 19:31 WBC 5.7 (4.8-10.8) X10*3/uL RBC 3.99 L (4.60-5.80) X10*6/uL Hgb 13.7 L (14.0-18.0) g/dl Hct 39.6 L (42.0-52.0) % MCV 99.2 H (80.0-98.0) fL MCH 34.3 H (27.0-33.0) pg MCHC 34.6 (31.0-36.0) g/dl RDW 13.8 (11.0-16.0) % Plt Count 237 (160-400) X10*3/uL MPV 10.3 (9.4-12.4) fL Immature Gran % (Auto) 0.7 H (0.0-0.4) % Neut % (Auto) 68.4 (45-73) % Lymph % (Auto) 21.2 (20-40) % [place] % (Auto) 8.8 (2-11) % Eos % (Auto) 0.5 (0-4) % Baso % (Auto) 0.4 (0-2) % Lymph # (Auto) 1.2 (1.2-4.9) X10*3/uL [place] # (Auto) 0.5 (0.1-1.2) X10*3/uL Eos # (Auto) 0.0 (0.0-0.4) X10*3/uL Baso # (Auto) 0.0 (0.0-0.2) X10*3/uL Abs Immat Gran (auto) 0.04 H (0.00-0.03) X10*3/uL Absolute Neuts (auto) 3.9 (2.0-8.3) x10*3/uL Absolute Nucleated RBC 0.000 (0.0-0.012) X10*3/uL Nucleated RBC % (auto) 0.0 (0.0-0.2) /100WBC PT 10.2 (10.0-13.1) SEC INR 0.9 (0.9-1.1) Sodium 134 L (135-145) mmol/L Potassium 4.1 (3.3-5.1) mmol/L Chloride 102 (96-108) mmol/L Carbon Dioxide 23 (22-29) mmol/L Anion Gap 13 (12-20) BUN 16 (9-16) mg/dL Creatinine 0.90 (0.5-1.4) mg/dL Estim Creat Clear Calc 53.8 Estimated GFR > 60 Random Glucose 100 (60-115) mg/dL Calcium 9.4 (8.4-10.2) mg/dL Magnesium 2.0 (1.6-2.6) mg/dL Total Bilirubin 0.7 (0.0-1.0) mg/dL AST 25 (5-37) U/L ALT 18 (0-40) U/L Alkaline Phosphatase 51 (39-117) U/L Troponin I High Sens (<3.5-35.0) ng/L Total Protein 7.0 (6.5-8.0) g/dL Albumin 4.2 (3.5-5.0) g/dL Urine Color Urine Appearance Urine pH (5.0-9.0) Ur Specific [place] (1.005-1.025) Urine Protein (Neg-Trace) mg/dL Urine Glucose (UA) (Negative) mg/dL Urine Ketones (Negative) mg/dL Urine Blood (Negative) Urine Nitrite (Negative) Ur Leukocyte Esterase (Negative) Urine RBC (0-2) /HPF Urine WBC (0-5) /HPF Ur Squamous Epith Cells (0-2) /HPF Urine Bacteria (None Seen) Hyaline Casts (0-2) /LPF Ethyl Alcohol mg/dL Influenza Type A (PCR) (Negative) Influenza Type B (PCR) (Negative) RSV RNA Qual (PCR) (Negative) SARS-CoV-2 RNA (RT-PCR) (Negative) 08/02/22 08/02/22 08/02/22 Range/Units 19:31 19:31 21:15 WBC (4.8-10.8) X10*3/uL RBC (4.60-5.80) X10*6/uL Hgb (14.0-18.0) g/dl Hct (42.0-52.0) % MCV (80.0-98.0) fL MCH (27.0-33.0) pg MCHC (31.0-36.0) g/dl RDW (11.0-16.0) % Plt Count (160-400) X10*3/uL MPV (9.4-12.4) fL Immature Gran % (Auto) (0.0-0.4) % Neut % (Auto) (45-73) % Lymph % (Auto) (20-40) % [place] % (Auto) (2-11) % Eos % (Auto) (0-4) % Baso % (Auto) (0-2) % Lymph # (Auto) (1.2-4.9) X10*3/uL [place] # (Auto) (0.1-1.2) X10*3/uL Eos # (Auto) (0.0-0.4) X10*3/uL Baso # (Auto) (0.0-0.2) X10*3/uL Abs Immat Gran (auto) (0.00-0.03) X10*3/uL Absolute Neuts (auto) (2.0-8.3) x10*3/uL Absolute Nucleated RBC (0.0-0.012) X10*3/uL Nucleated RBC % (auto) (0.0-0.2) /100WBC PT (10.0-13.1) SEC INR (0.9-1.1) Sodium (135-145) mmol/L Potassium (3.3-5.1) mmol/L Chloride (96-108) mmol/L Carbon Dioxide (22-29) mmol/L Anion Gap (12-20) BUN (9-16) mg/dL Creatinine (0.5-1.4) mg/dL Estim Creat Clear Calc Estimated GFR Random Glucose (60-115) mg/dL Calcium (8.4-10.2) mg/dL Magnesium (1.6-2.6) mg/dL Total Bilirubin (0.0-1.0) mg/dL AST (5-37) U/L ALT (0-40) U/L Alkaline Phosphatase (39-117) U/L Troponin I High Sens < 3.5 (<3.5-35.0) ng/L Total Protein (6.5-8.0) g/dL Albumin (3.5-5.0) g/dL Urine Color Yellow Urine Appearance Clear Urine pH 6.0 (5.0-9.0) Ur Specific [place] <= 1.005 (1.005-1.025) Urine Protein Negative (Neg-Trace) mg/dL Urine Glucose (UA) Negative (Negative) mg/dL Urine Ketones Trace (Negative) mg/dL Urine Blood Trace H (Negative) Urine Nitrite Negative (Negative) Ur Leukocyte Esterase Negative (Negative) Urine RBC 0-2 (0-2) /HPF Urine WBC 0-5 (0-5) /HPF Ur Squamous Epith Cells 0-2 (0-2) /HPF Urine Bacteria None Seen (None Seen) Hyaline Casts 0-2 (0-2) /LPF Ethyl Alcohol mg/dL Influenza Type A (PCR) NEGATIVE (Negative) Influenza Type B (PCR) NEGATIVE (Negative) RSV RNA Qual (PCR) NEGATIVE (Negative) SARS-CoV-2 RNA (RT-PCR) NEGATIVE (Negative) 08/02/22 Range/Units 21:43 WBC (4.8-10.8) X10*3/uL RBC (4.60-5.80) X10*6/uL Hgb (14.0-18.0) g/dl Hct (42.0-52.0) % MCV (80.0-98.0) fL MCH (27.0-33.0) pg MCHC (31.0-36.0) g/dl RDW (11.0-16.0) % Plt Count (160-400) X10*3/uL MPV (9.4-12.4) fL Immature Gran % (Auto) (0.0-0.4) % Neut % (Auto) (45-73) % Lymph % (Auto) (20-40) % [place] % (Auto) (2-11) % Eos % (Auto) (0-4) % Baso % (Auto) (0-2) % Lymph # (Auto) (1.2-4.9) X10*3/uL [place] # (Auto) (0.1-1.2) X10*3/uL Eos # (Auto) (0.0-0.4) X10*3/uL Baso # (Auto) (0.0-0.2) X10*3/uL Abs Immat Gran (auto) (0.00-0.03) X10*3/uL Absolute Neuts (auto) (2.0-8.3) x10*3/uL Absolute Nucleated RBC (0.0-0.012) X10*3/uL Nucleated RBC % (auto) (0.0-0.2) /100WBC PT (10.0-13.1) SEC INR (0.9-1.1) Sodium (135-145) mmol/L Potassium (3.3-5.1) mmol/L Chloride (96-108) mmol/L Carbon Dioxide (22-29) mmol/L Anion Gap (12-20) BUN (9-16) mg/dL Creatinine (0.5-1.4) mg/dL Estim Creat Clear Calc Estimated GFR Random Glucose (60-115) mg/dL Calcium (8.4-10.2) mg/dL Magnesium (1.6-2.6) mg/dL Total Bilirubin (0.0-1.0) mg/dL AST (5-37) U/L ALT (0-40) U/L Alkaline Phosphatase (39-117) U/L Troponin I High Sens (<3.5-35.0) ng/L Total Protein (6.5-8.0) g/dL Albumin (3.5-5.0) g/dL Urine Color Urine Appearance Urine pH (5.0-9.0) Ur Specific [place] (1.005-1.025) Urine Protein (Neg-Trace) mg/dL Urine Glucose (UA) (Negative) mg/dL Urine Ketones (Negative) mg/dL Urine Blood (Negative) Urine Nitrite (Negative) Ur Leukocyte Esterase (Negative) Urine RBC (0-2) /HPF Urine WBC (0-5) /HPF Ur Squamous Epith Cells (0-2) /HPF Urine Bacteria (None Seen) Hyaline Casts (0-2) /LPF Ethyl Alcohol < 10 mg/dL Influenza Type A (PCR) (Negative) Influenza Type B (PCR) (Negative) RSV RNA Qual (PCR) (Negative) SARS-CoV-2 RNA (RT-PCR) (Negative) Independent Interpretation I performed an independent interpretation of an: EKG Interpretation: Sinus heart rate is 90 TX QRS QT within normal limits is no acute ST segment elevation. Independent Historian Clinical information obtained from an independent historian. History obtained from or confirmed by: Spouse Tests considered The following testing was considered but not selected: [place] patient's symptoms not consistent with pulmonary emboli. No D-dimer was ordered Chronic Conditions Patient?s care impacted by: Hypertension Discharge Plan Discharge Clinical Impression: Dizziness Patient Disposition: Home, Self-Care Instructions: Dizziness (ED), Dehydration (ED) Prescriptions: No Action tamsulosin [Flomax] 0.4 mg capsule 0.4 mg PO BEDTIME Qty: 90 2RF ascorbic acid (vitamin C) 250 mg tablet 250 mg PO DAILY 90 Days Qty: 90 3RF amlodipine [Norvasc] 5 mg tablet 5 mg PO DAILY 90 Days Qty: 90 0RF cyanocobalamin (vitamin B-12) 1,000 mcg capsule 1,000 mcg PO DAILY 90 Days Qty: 90 1RF atorvastatin [Lipitor] 10 mg tablet 10 mg PO DAILY Qty: 90 1RF simethicone 180 mg capsule 180 mg PO TID 30 Days Qty: 90 1RF finasteride [Proscar] 5 mg tablet 5 mg PO DAILY Qty: 90 0RF cholecalciferol (vitamin D3) 50 mcg (2,000 unit) capsule 50 mcg PO DAILY 90 Days Qty: 90 3RF sildenafil [Viagra] 100 mg tablet 100 mg PO DAILY PRN (Reason: sexual activity) Rx Instructions: administer 30 minutes to 4 hours before activity docusate sodium [Colace] 100 mg capsule 100 mg PO BID PRN (Reason: constipation) Qty: 30 0RF ferrous sulfate [Iron (ferrous sulfate)] 325 mg (65 mg iron) tablet 325 mg PO DAILY omeprazole 20 mg capsule,delayed release(DR/EC) 20 mg PO DAILY Referrals: Rocael Reeves PA-C [Primary Care Provider] -
[2022-08-02 19:46] LABS: INTERNATIONAL NORM RATIO 0.9 (0.9-1.1); Prothrombin Time 10.2 SEC (10.0-13.1)
[2022-08-02 20:04] LABS: Troponin-I High Sensitivity < 3.5 ng/L (<3.5-35.0)
[2022-08-02 20:09] LABS: Alanine Aminotransferase 18 U/L (0-40); Albumin Level 4.2 g/dL (3.5-5.0); Alkaline Phosphatase 51 U/L (39-117); Anion Gap 13 (12-20); Aspartate Amino Transferase 25 U/L (5-37); Bilirubin Total 0.7 mg/dL (0.0-1.0); Blood Urea Nitrogen 16 mg/dL (9-16); Calcium 9.4 mg/dL (8.4-10.2); Carbon Dioxide 23 mmol/L (22-29); Chloride 102 mmol/L (96-108); Creatinine Clr Calc Pharmacy 53.8; Estimated Glomerular Filt Rate > 60; Glucose Random 100 mg/dL (60-115); Potassium 4.1 mmol/L (3.3-5.1); Sodium 134 mmol/L (135-145)
[2022-08-02 20:29] LABS: Influenza A PCR NEGATIVE (Negative); Influenza B PCR NEGATIVE (Negative); Resp Syncy Virus RNA Qual PCR NEGATIVE (Negative); SARS COV2 PCR INHOUSE NEGATIVE (Negative)
[2022-08-02 21:22] LABS: Appearance Urine Clear; Color Urine Yellow; Glucose Urine UA Negative (Negative); Leukocyte Esterase Urine Negative (Negative); Nitrite Urine Negative (Negative); Specific Gravity - Urine <= 1.005 (1.005-1.025); UMIC TRIGGER UACC YES; Urine Blood Trace (Negative); Urine Ketones Trace mg/dL (Negative); Urine Protein Negative (Neg-Trace)
[2022-08-02 21:31] LABS: Bacteria Urine None Seen (None Seen); Hyaline Casts Urine 0-2 /LPF (0-2); RBC Urine 0-2 /HPF (0-2); Squamous Epithelial Cell Urine 0-2 /HPF (0-2); WBC Urine 0-5 /HPF (0-5)
[2022-08-02] MEDS: 0.9 % Sodium Chloride 1,000 ML 999 ML IV (21:54)
[2022-08-02 22:16] LABS: Ethanol < 10 mg/dL
== END 2022-08-02 23:08 | disposition home or self-care (01) ==
PROVIDERS: Physician Assistant Medical; Emergency Provider Emergency Medicine Emergency Medical Services; PCP Physician Assistant
DX: R42 Dizziness and giddiness (principal); Z20.822 Contact with and (suspected) exposure to COVID-19; Z20.828 Contact with and (suspected) exposure to other viral communicable diseases; I10 Essential (primary) hypertension; E78.5 Hyperlipidemia, unspecified; D50.9 Iron deficiency anemia, unspecified; Z79.02 Long term (current) use of antithrombotics/antiplatelets; Z79.899 Other long term (current) drug therapy
CPT/HCPCS: 0241U; 36415; 70450; 71046; 80053; 81001; 82077; 83735; 84484; 85025; 85610; 93005; 96360; 99284; 99285

== ENCOUNTER 2022-08-03 16:45 | Emergency (ER) | payer MEDICARE, SELFPAY ==
--- NOTE | ~2022-08-03 | CT_ITS ---
EXAMINATION: CT HEAD WITHOUT CONTRAST CLINICAL INFORMATION: Generalized weakness, high blood pressure. COMPARISON: None TECHNIQUE: Contiguous axial imaging was performed from the skull base to vertex without intravenous administration of contrast. This CT examination was performed using dose optimization techniques as appropriate, variously including the following: *Automated exposure control *Adjustment of mA and/or kV according to patient size (this includes techniques or standardized protocols for targeted exams where dose is matched to indication/reason for exam; i.e. extremities or head) *Use of iterative reconstruction technique DLP: 638 mGy-cm FINDINGS: There is no acute intra-axial, extra-axial bleed, masses or midline shift. There is no acute infarction in evolution. The causey to white matter difference is maintained normal. The lateral ventricles are symmetrical in size and configuration but mildly enlarged. Bone windows reveal no calvarial abnormality. There is no scalp soft tissue abnormality. Bilateral paranasal sinuses and mastoid air cells are well-aerated. CT/CT head/brain wo IV con IMPRESSION: 1. No acute intracranial process seen. 2. Mild cerebral volume loss.
--- NOTE | ~2022-08-03 | XR_ITS ---
EXAMINATION: XR CHEST CLINICAL INFORMATION: Syncope. Clinically. COMPARISON: Chest x-ray 08/02/2022 TECHNIQUE: Frontal view of the chest was obtained. 5:47 PM FINDINGS: Lungs are clear. No pulmonary vascular congestion. There is no pleural effusion. The heart size is normal. The cardiac and mediastinal contours are normal. There are calcifications of the thoracic aorta. There are multilevel degenerative changes of dorsal spine. XR/XR chest 1V IMPRESSION: Unremarkable examination.
[2022-08-03 17:01] VITALS: BP 163/86; BP 179/99; PULSE 102; RESP 18; TEMP 36.9; O2SAT 98; O2SAT 99; BMI 19.1
--- NOTE | 2022-08-03 17:07 | ECG_ITS ---
Test Reason : syncope Blood Pressure : / mmHG Vent. Rate : 092 BPM Atrial Rate : 092 BPM P-R Int : 180 ms QRS Dur : 074 ms QT Int : 358 ms P-R-T Axes : 059 039 057 degrees QTc Int : 442 ms Normal sinus rhythm Normal ECG When compared with ECG of 02-AUG-2022 18:56, No significant change was found Referred By: Generic ED Physician Electronically Signed By:VIRGINIA STEVEN MD
[2022-08-03 17:52] LABS: Anion Gap 12 (12-20); Blood Urea Nitrogen 10 mg/dL (9-16); Calcium 9.1 mg/dL (8.4-10.2); Carbon Dioxide 24 mmol/L (22-29); Chloride 102 mmol/L (96-108); Creatinine Clr Calc Pharmacy 63.7; Estimated Glomerular Filt Rate > 60; Glucose Random 111 mg/dL (60-115); Potassium 3.6 mmol/L (3.3-5.1); Sodium 134 mmol/L (135-145)
[2022-08-03 17:57] LABS: Hematocrit 38.9 % (42.0-52.0); Hemoglobin 13.5 g/dl (14.0-18.0); Mean Corpuscular HGB Conc 34.7 g/dl (31.0-36.0); Mean Corpuscular Hemoglobin 34.6 pg (27.0-33.0); Mean Corpuscular Volume 99.7 fL (80.0-98.0); Mean Platelet Volume 10.7 fL (9.4-12.4); Platelet Count 245 X10*3/uL (160-400); Red Cell Distribution Width 13.9 % (11.0-16.0)
[2022-08-03 18:00] LABS: Troponin-I High Sensitivity < 3.5 ng/L (<3.5-35.0)
--- NOTE | 2022-08-03 18:56 | ED.GENADULT ---
HPI - General Adult General Chief complaint: General Medical Stated complaint: weakness,hypertension Time Seen by Provider: 08/03/22 18:55 Source: patient and family Limitations: no limitations History of Present Illness HPI narrative: This is a 81-year-old male complains of having felt weak, and cold earlier. The patient also noted that his blood pressure when he took it was elevated, around 190/90. Patient denies any fever or rigors. Patient is on amlodipine daily for blood pressure. Patient was evaluated here yesterday for similar symptoms and had a workup including chest x-ray, CT scan of the brain, labs, urinalysis. Patient was discharged home. The patient denies any headache, acute visual changes, focal weakness or numbness in his arms, face, legs, chest pain, shortness of breath, cough, abdominal pain, constipation, lower extremity swelling. The patient notes that he does have trouble sleeping, takes Tylenol p.m.. His notes that she sometimes takes lorazepam as needed for anxiety symptoms but patient Himself has not been given any of her medicines. Related Data Home Medications Medication Instructions Recorded Confirmed omeprazole 20 mg capsule,delayed 20 mg PO DAILY 09/07/21 05/16/22 release ferrous sulfate 325 mg (65 mg 325 mg PO DAILY 10/19/21 05/16/22 iron) tablet (Iron (ferrous sulfate)) sildenafil 100 mg tablet (Viagra) 100 mg PO DAILY PRN sexual activity 03/17/22 05/16/22 Previous Rx's Medication Instructions Recorded docusate sodium 100 mg capsule 100 mg PO BID PRN constipation #30 07/01/21 (Colace) caps tamsulosin 0.4 mg capsule (Flomax) 0.4 mg PO BEDTIME #90 caps 04/25/22 ascorbic acid (vitamin C) 250 mg 250 mg PO DAILY 90 days #90 tabs 05/29/22 tablet amlodipine 5 mg tablet (Norvasc) 5 mg PO DAILY htn 90 days #90 tabs 06/20/22 cyanocobalamin (vitamin B-12) 1,000 mcg PO DAILY 90 days #90 caps 06/22/22 1,000 mcg capsule atorvastatin 10 mg tablet (Lipitor) 10 mg PO DAILY #90 tabs 07/03/22 simethicone 180 mg capsule 180 mg PO TID 30 days #90 caps 07/03/22 finasteride 5 mg tablet (Proscar) 5 mg PO DAILY #90 tabs 07/07/22 cholecalciferol (vitamin D3) 50 50 mcg PO DAILY 90 days #90 caps 07/24/22 mcg (2,000 unit) capsule lorazepam 0.5 mg tablet 0.5 mg PO BID PRN sleep #30 tabs 08/03/22 Allergies Allergy/AdvReac Type Severity Reaction Status Date / Time lisinopril Allergy Severe lip Verified 07/04/22 15:27 swelling hydrochlorothiazide AdvReac Severe dizziness/ Verified 07/04/22 15:27 hyponatremia Review of Systems Review of Systems: as per HPI [facility] Past Medical History Medical History Adenocarcinoma of cecum Anemia History of urinary frequency HTN (hypertension) Hyperlipidemia Surgical History H/O colonoscopy History of colon resection (~2020) History of esophagogastroduodenoscopy (EGD) History of left inguinal hernia repair (~02/2018) Hx of eye surgery Family History Family History Father No problems noted. Mother No problems noted. Brother Cardiovascular disease Diabetes Social History Social History Household Members: Significant Other Housing: House Are you a primary director long term care to a significant other at home: No Do you presently have visiting nurse or other home services: No Alcohol intake: never Patient Tobacco Use Status: Never used Tobacco Smoked in Last 30 Days: No e-Cigarette/Vaping Use: Never Used Second Hand Smoke Exposure: No Use of substances other than those prescribed or required for medical reasons: No Advance Directives: Yes Advance Directives on File: Yes Advance Directives Date on File: 04/12/21 service: No Current occupational status: retired Cognitive needs: No Hearing needs: No Vision needs: Yes (glasses) Physical Exam ED Vital Signs: Vital Signs - 24 hr 08/03/22 17:01 08/03/22 19:14 Temperature 98.4 F Pulse Rate 102 H 87 Respiratory Rate 18 18 Blood Pressure 163/86 H 144/75 H Pulse Oximetry 99 97 Oxygen Delivery Method Room Air Room Air BMI result Body Mass Index 19.1 Const General: no acute distress Orientation/consciousness: patient oriented x3 HENMT Head: Yes normal to inspection General nose exam: Normal external nose present Mouth: moist mucous membranes Throat: Yes posterior oropharynx normal, Yes tonsils normal and Yes uvula midline Eyes Eyelids: Yes eyelids normal Conjunctivae: conjunctivae normal Pupils: Equal, round and reactive pupils present Neck Neck: Yes supple Resp Effort & Inspection: normal respiratory effort Auscultation: clear to auscultation bilaterally Cardio Rate: regular rate Rhythm: regular rhythm Heart sounds: S1 normal heart sound present, S2 normal heart sound present, no gallops, no murmurs and no rubs GI Inspection: No distended Palpation (GI): Soft to palpation and nontender Auscultation: normal bowel sounds Skin General skin exam: other (Warm and dry) Neuro General: patient oriented x3 and CN's II-XI intact bilaterally Cranial nerves: Yes Equal, round and reactive pupils present Extrem General: Yes no pedal edema Psych Affect: normal affect Attitude: cooperative Course Course Course Narrative: patient was given lorazepam 0.5 mg p.o. with some improvement in his symptoms. Medications Administered Discontinued Medications Generic Name Dose Route Start Last Admin Trade Name Freq PRN Reason Stop Dose Admin Lorazepam 0.5 mg 08/03/22 19:27 08/03/22 19:38 Lorazepam 0.5 Mg Tablet PO 08/03/22 19:28 0.5 mg ONCE ONE Administration Medical Decision Making Medical Decision Making [facility] Narrative: Patient with a feeling of weakness and chills. Patient does admit to some feeling of anxiety / panic. Patient was concerned about his blood pressure. Blood pressure reading was not elevated to a concerning level, not to a level that should cause symptoms. Patient had a full workup yesterday which was unfortunately fully repeated today. CT of the brain, EKG, labs unremarkable. Patient notes that he has some trouble sleeping and requests medicine to help him sleep. I will prescribe lorazepam to take q.h.s., which may help with his overall anxiety as well as with his sleep. Can use it up to twice a day but should try to use it just once daily at night. Differential Diagnosis Differential Diagnoses: The differential diagnosis associated with the presentation includes CVA, acute coronary syndrome, sepsis, electrolyte derangement, dehydration, anxiety Admission/Observation Consideration of admission/observation: Escalation of care including admission/observation considered Lab Data MDM Lab Attestation statement: I reviewed the patient's lab results. 08/03/22 17:28 08/03/22 17:28 Labs: Lab Results 08/03/22 08/03/22 08/03/22 Range/Units 17:28 17:28 17:28 WBC 6.0 (4.8-10.8) X10*3/uL RBC 3.90 L (4.60-5.80) X10*6/uL Hgb 13.5 L (14.0-18.0) g/dl Hct 38.9 L (42.0-52.0) % MCV 99.7 H (80.0-98.0) fL MCH 34.6 H (27.0-33.0) pg MCHC 34.7 (31.0-36.0) g/dl RDW 13.9 (11.0-16.0) % Plt Count 245 (160-400) X10*3/uL MPV 10.7 (9.4-12.4) fL Absolute Nucleated RBC 0.000 (0.0-0.012) X10*3/uL Nucleated RBC % (auto) 0.0 (0.0-0.2) /100WBC Sodium 134 L (135-145) mmol/L Potassium 3.6 (3.3-5.1) mmol/L Chloride 102 (96-108) mmol/L Carbon Dioxide 24 (22-29) mmol/L Anion Gap 12 (12-20) BUN 10 (9-16) mg/dL Creatinine 0.76 (0.5-1.4) mg/dL Estim Creat Clear Calc 63.7 Estimated GFR > 60 Random Glucose 111 (60-115) mg/dL Calcium 9.1 (8.4-10.2) mg/dL Troponin I High Sens < 3.5 (<3.5-35.0) ng/L Independent Interpretation I performed an independent interpretation of an: EKG Interpretation: Sinus rhythm with a rate of 92. No ST elevation or depression. Borderline atrial enlargement. Normal QRS axis. Some baseline artifact. Radiology Impression Discussion of test interpretation with radiology: I have reviewed the radiologist's reading. Radiologist Impression: Chest x-ray: IMPRESSION: Unremarkable examination. CT brain: IMPRESSION: 1.? No acute intracranial process seen. 2.? Mild cerebral volume loss. ? Independent Historian Clinical information obtained from an independent historian. History obtained from or confirmed by: Spouse Chronic Conditions Patient?s care impacted by: Hypertension Discharge Plan Discharge Clinical Impression: Anxiety, Hypertension, Insomnia Patient Disposition: Home, Self-Care Instructions: Hypertension (ED), Insomnia (ED), Anxiety (ED) Additional Instructions: use lorazepam as prescribed. He can take at night late for insomnia, and if needed during the daytime for any anxiety/ panic symptoms, up to twice a day total, however try to use it sparingly, you may need only before bed. Follow up with your primary care physician. Prescriptions: New lorazepam 0.5 mg tablet 0.5 mg PO BID MDD 1 mg PRN (Reason: sleep) Qty: 30 0RF No Action tamsulosin [Flomax] 0.4 mg capsule 0.4 mg PO BEDTIME Qty: 90 2RF ascorbic acid (vitamin C) 250 mg tablet 250 mg PO DAILY 90 Days Qty: 90 3RF amlodipine [Norvasc] 5 mg tablet 5 mg PO DAILY 90 Days Qty: 90 0RF cyanocobalamin (vitamin B-12) 1,000 mcg capsule 1,000 mcg PO DAILY 90 Days Qty: 90 1RF atorvastatin [Lipitor] 10 mg tablet 10 mg PO DAILY Qty: 90 1RF simethicone 180 mg capsule 180 mg PO TID 30 Days Qty: 90 1RF finasteride [Proscar] 5 mg tablet 5 mg PO DAILY Qty: 90 0RF cholecalciferol (vitamin D3) 50 mcg (2,000 unit) capsule 50 mcg PO DAILY 90 Days Qty: 90 3RF sildenafil [Viagra] 100 mg tablet 100 mg PO DAILY PRN (Reason: sexual activity) Rx Instructions: administer 30 minutes to 4 hours before activity docusate sodium [Colace] 100 mg capsule 100 mg PO BID PRN (Reason: constipation) Qty: 30 0RF ferrous sulfate [Iron (ferrous sulfate)] 325 mg (65 mg iron) tablet 325 mg PO DAILY omeprazole 20 mg capsule,delayed release(DR/EC) 20 mg PO DAILY Interventions: ED Discharge Assessment Last Done: 08/03/22 20:36 Discharge Date/Time: 08/03/22 20:37
[2022-08-03 19:14] VITALS: BP 144/75; PULSE 87; RESP 18; O2SAT 97
[2022-08-03] MEDS: LORazepam 0.5 MG TABLET PO (19:38)
== END 2022-08-03 20:37 | disposition home or self-care (01) ==
PROVIDERS: Emergency Provider Emergency Medicine; PCP Physician Assistant
DX: F41.1 Generalized anxiety disorder (principal); F43.0 Acute stress reaction; R51.9 Headache, unspecified; R55 Syncope and collapse; G47.00 Insomnia, unspecified; I10 Essential (primary) hypertension; Z79.899 Other long term (current) drug therapy
CPT/HCPCS: 36415; 70450; 71045; 80048; 84484; 85027; 93005; 99284

== ENCOUNTER 2022-08-09 07:10 | Observation (INO) | payer MEDICARE, SELFPAY ==
[2022-08-09] VITALS (10 sets, daily range): BP systolic 141–172; BP diastolic 74–90; PULSE 80–128; RESP 12–18; TEMP 36.6–37.2; O2SAT 95–99; BMI 19.0; BMI 19.6
--- NOTE | 2022-08-09 | ECG_ITS ---
Test Reason : Syncope Blood Pressure : / mmHG Vent. Rate : 090 BPM Atrial Rate : 090 BPM P-R Int : 206 ms QRS Dur : 078 ms QT Int : 356 ms P-R-T Axes : 061 047 061 degrees QTc Int : 435 ms Normal sinus rhythm Normal ECG When compared with ECG of 03-AUG-2022 17:23, No significant change was found Referred By: Generic ED Physician Electronically Signed By:JOE JOE
--- NOTE | ~2022-08-09 | CT_ITS ---
EXAMINATION: NONCONTRAST HEAD CT NONCONTRAST CERVICAL SPINE CT INDICATION INFORMATION: Trauma and bleeding. COMPARISON: 08/03/2022 TECHNIQUE: Separate noncontrast CT examinations of the head and cervical spine were performed. Coronal and sagittal images were created for each examination at the technologist workstation. This CT examination was performed using dose optimization techniques as appropriate, variously including the following: *Automated exposure control *Adjustment of mA and/or kV according to patient size (this includes techniques or standardized protocols for targeted exams where dose is matched to indication/reason for exam; i.e. extremities or head) *Use of iterative reconstruction technique DLP: 840 mGy-cm FINDINGS: Head: There is no evidence of acute intracranial hemorrhage or territorial infarction. No abnormal mass effect or midline shift is seen. Moeller to white matter differentiation is well preserved. No extra-axial fluid collections are identified. No hydrocephalus. Proportional prominence of the ventricles and sulcal spaces is consistent with mild volume loss. Patchy periventricular and deep white matter hypoattenuation is consistent with mild small vessel ischemic changes. Small subgaleal hematoma over the high left parietal region. No calvarial fracture. The mastoid air cells and visualized portions of the paranasal sinuses are well aerated. Cervical spine: There is anatomic alignment of the vertebral bodies and posterior elements. The atlantoaxial and atlantooccipital articulations are intact. Vertebral body heights are maintained. There is multilevel intervertebral disc space narrowing with endplate osteophyte formation and facet arthropathy. Bony fusion of the facets spanning from C3 to C5. No evidence of acute fracture. No prevertebral soft tissue swelling. Calcifications at the lung apices. The visualized lungs are otherwise clear.. The thyroid gland is unremarkable. CT/CT cervical spine wo IV con IMPRESSION: 1. No acute intracranial finding. 2. No acute fracture or malalignment of the cervical spine. Moderate degenerative changes.
[2022-08-09 07:38] LABS: MANUAL DIFF FLAG NO
--- NOTE | 2022-08-09 07:39 | ED_ITS ---
HPI - Dizziness General Chief Complaint: Syncope Stated Complaint: Fall, hit head when fell per EMS Time Seen by Provider: 08/09/22 07:37 Source: patient Mode of arrival: EMS Limitations: no limitations History of Present Illness HPI Narrative: Patient felt dizzy this morning but then he got up to go to the bathroom. When he went to sit on the toilet he fell and hit his head. He states clearly that he never lost consciousness. This is the patients 3rd visit in a few day. It is unclear by the story that he did not lose consciousness. He has a laceration to the back of his head. Patient did have alcohol yesterday and last night. MD elicited complaint: dizziness and lightheadedness Onset (ago): day(s) Timing: sudden onset Severity: moderate Description: lightheadedness and near-syncope Related Data Home Medications Medication Instructions Recorded Confirmed omeprazole 20 mg capsule,delayed 20 mg PO DAILY 09/07/21 05/16/22 release ferrous sulfate 325 mg (65 mg 325 mg PO DAILY 10/19/21 05/16/22 iron) tablet (Iron (ferrous sulfate)) sildenafil 100 mg tablet (Viagra) 100 mg PO DAILY PRN sexual activity 03/17/22 05/16/22 Previous Rx's Medication Instructions Recorded docusate sodium 100 mg capsule 100 mg PO BID PRN constipation #30 07/01/21 (Colace) caps tamsulosin 0.4 mg capsule (Flomax) 0.4 mg PO BEDTIME #90 caps 04/25/22 ascorbic acid (vitamin C) 250 mg 250 mg PO DAILY 90 days #90 tabs 05/29/22 tablet amlodipine 5 mg tablet (Norvasc) 5 mg PO DAILY htn 90 days #90 tabs 06/20/22 cyanocobalamin (vitamin B-12) 1,000 mcg PO DAILY 90 days #90 caps 06/22/22 1,000 mcg capsule atorvastatin 10 mg tablet (Lipitor) 10 mg PO DAILY #90 tabs 07/03/22 simethicone 180 mg capsule 180 mg PO TID 30 days #90 caps 07/03/22 finasteride 5 mg tablet (Proscar) 5 mg PO DAILY #90 tabs 07/07/22 cholecalciferol (vitamin D3) 50 50 mcg PO DAILY 90 days #90 caps 07/24/22 mcg (2,000 unit) capsule lorazepam 0.5 mg tablet 0.5 mg PO BID PRN sleep #30 tabs 08/03/22 Allergies Allergy/AdvReac Type Severity Reaction Status Date / Time lisinopril Allergy Severe lip Verified 07/04/22 15:27 swelling hydrochlorothiazide AdvReac Severe dizziness/ Verified 07/04/22 15:27 hyponatremia Review of Systems Review of Systems: Yes all other systems are reviewed and are negative Constitutional: Comments: head lacerations Neurologic: Denies Sensory deficit (Neuro) [facility] Past Medical History Medical History Adenocarcinoma of cecum Anemia History of urinary frequency HTN (hypertension) Hyperlipidemia Surgical History H/O colonoscopy History of colon resection (~2020) History of esophagogastroduodenoscopy (EGD) History of left inguinal hernia repair (~02/2018) Hx of eye surgery Family History Family History Father No problems noted. Mother No problems noted. Brother Cardiovascular disease Diabetes Social History Social History Household Members: Significant Other Housing: House Are you a primary care center manager to a significant other at home: No Do you presently have visiting nurse or other home services: No Alcohol intake: never Patient Tobacco Use Status: Never used Tobacco e-Cigarette/Vaping Use: Never Used Second Hand Smoke Exposure: No Advance Directives: Yes Advance Directives on File: Yes Advance Directives Date on File: 04/12/21 service: No Current occupational status: retired Cognitive needs: No Hearing needs: No Vision needs: Yes (glasses) Physical Exam Vital Signs: Vital Signs: Last Vital Signs Temp 97.8 F 08/09/22 07:21 Pulse 80 08/09/22 07:21 Resp 18 08/09/22 07:21 BP 163/81 H 08/09/22 07:21 Pulse Ox 99 08/09/22 07:21 O2 Del Method 08/09/22 07:21 BMI result Body Mass Index 19.0 Const: Other: thin frail male Nutritional Appearance: average body habitus Orientation/consciousness: oriented to person and patient oriented x3 Limitations: no limitations HEENT: Other: left occipital hematoma Ears: external ears normal General nose exam: Normal external nose present Mouth: Normal oral and palatal mucosa present and oropharynx normal Throat: Yes posterior oropharynx normal Eyes: General: appearance normal, both eyes and all related structures Neck: Other: supple Neck: Yes normal visual inspection Chest: Chest palpation & inspection: normal inspection of the chest Resp: Auscultation: clear to auscultation bilaterally Cardio: Jugular venous distension: no JVD Rate: regular rate Rhythm: regular rhythm Heart sounds: S1 normal heart sound present and S2 normal heart sound present GI: Inspection: Yes normal to inspection Palpation (GI): Soft to palpation, nontender and No hepatosplenomegaly present Auscultation: normal bowel sounds : General: Yes no CVA tenderness Back/Spine/Pelvis: Back: no CVA tenderness Skin: General skin exam: no rashes or lesions noted Neuro: General: oriented to person and patient oriented x3 Cranial nerves: Yes CN's II-XII intact bilaterally Motor exam (neuro): 5/5 motor strength present throughout Sensory Exam: No Sensory deficit (Neuro) Extrem: General: Yes normal to inspection Psych: Appearance: grossly normal Course Reevaluation(s) Reevaluation #1: Discussed with Dr. Donnelly will admit to observation Time: 09:01 Medical Decision Making Differential Diagnosis syncope, arrhythmia, stroke, cerebral bleed, cervical spine fracture, IL all were considered Admission/Observation Patient elderly and syncope with head trauma, admission was immediately considered Consult Healthcare Provider Management of the patient was discussed with: Hospitalist Lab Data 08/09/22 07:33 08/09/22 07:33 Labs: Lab Results 08/09/22 08/09/22 08/09/22 Range/Units 07:28 07:33 07:33 WBC 4.7 L (4.8-10.8) X10*3/uL RBC 4.02 L (4.60-5.80) X10*6/uL Hgb 14.0 (14.0-18.0) g/dl Hct 40.3 L (42.0-52.0) % MCV 100.2 H (80.0-98.0) fL MCH 34.8 H (27.0-33.0) pg MCHC 34.7 (31.0-36.0) g/dl RDW 13.8 (11.0-16.0) % Plt Count 248 (160-400) X10*3/uL MPV 10.3 (9.4-12.4) fL Immature Gran % (Auto) 0.9 H (0.0-0.4) % Neut % (Auto) 55.1 (45-73) % Lymph % (Auto) 30.5 (20-40) % [place] % (Auto) 10.9 (2-11) % Eos % (Auto) 1.7 (0-4) % Baso % (Auto) 0.9 (0-2) % Lymph # (Auto) 1.4 (1.2-4.9) X10*3/uL [place] # (Auto) 0.5 (0.1-1.2) X10*3/uL Eos # (Auto) 0.1 (0.0-0.4) X10*3/uL Baso # (Auto) 0.0 (0.0-0.2) X10*3/uL Abs Immat Gran (auto) 0.04 H (0.00-0.03) X10*3/uL Absolute Neuts (auto) 2.6 (2.0-8.3) x10*3/uL Absolute Nucleated RBC 0.000 (0.0-0.012) X10*3/uL Nucleated RBC % (auto) 0.0 (0.0-0.2) /100WBC Sodium 137 (135-145) mmol/L Potassium 4.4 D (3.3-5.1) mmol/L Chloride 103 (96-108) mmol/L Carbon Dioxide 25 (22-29) mmol/L Anion Gap 13 (12-20) BUN 15 (9-16) mg/dL Creatinine 0.88 (0.5-1.4) mg/dL Estim Creat Clear Calc 54.5 Estimated GFR > 60 POC Glucose 88 (60-115) mg/dL Random Glucose 90 (60-115) mg/dL Calcium 9.5 (8.4-10.2) mg/dL Total Bilirubin 0.8 (0.0-1.0) mg/dL AST 19 (5-37) U/L ALT 15 (0-40) U/L Alkaline Phosphatase 47 (39-117) U/L Troponin I High Sens (<3.5-35.0) ng/L Total Protein 6.7 (6.5-8.0) g/dL Albumin 4.2 (3.5-5.0) g/dL 08/09/22 Range/Units 07:33 WBC (4.8-10.8) X10*3/uL RBC (4.60-5.80) X10*6/uL Hgb (14.0-18.0) g/dl Hct (42.0-52.0) % MCV (80.0-98.0) fL MCH (27.0-33.0) pg MCHC (31.0-36.0) g/dl RDW (11.0-16.0) % Plt Count (160-400) X10*3/uL MPV (9.4-12.4) fL Immature Gran % (Auto) (0.0-0.4) % Neut % (Auto) (45-73) % Lymph % (Auto) (20-40) % [place] % (Auto) (2-11) % Eos % (Auto) (0-4) % Baso % (Auto) (0-2) % Lymph # (Auto) (1.2-4.9) X10*3/uL [place] # (Auto) (0.1-1.2) X10*3/uL Eos # (Auto) (0.0-0.4) X10*3/uL Baso # (Auto) (0.0-0.2) X10*3/uL Abs Immat Gran (auto) (0.00-0.03) X10*3/uL Absolute Neuts (auto) (2.0-8.3) x10*3/uL Absolute Nucleated RBC (0.0-0.012) X10*3/uL Nucleated RBC % (auto) (0.0-0.2) /100WBC Sodium (135-145) mmol/L Potassium (3.3-5.1) mmol/L Chloride (96-108) mmol/L Carbon Dioxide (22-29) mmol/L Anion Gap (12-20) BUN (9-16) mg/dL Creatinine (0.5-1.4) mg/dL Estim Creat Clear Calc Estimated GFR POC Glucose (60-115) mg/dL Random Glucose (60-115) mg/dL Calcium (8.4-10.2) mg/dL Total Bilirubin (0.0-1.0) mg/dL AST (5-37) U/L ALT (0-40) U/L Alkaline Phosphatase (39-117) U/L Troponin I High Sens < 3.5 (<3.5-35.0) ng/L Total Protein (6.5-8.0) g/dL Albumin (3.5-5.0) g/dL Independent Interpretation I performed an independent interpretation of an: EKG (sinus 90, no st or twave changes) and CT Scan Interpretation: Head CT no bleed, cervical CT no fracture Discharge Plan Discharge Clinical Impression: Syncope and collapse, Acute head trauma Patient Disposition: Admitted as Observation Prescriptions: No Action tamsulosin [Flomax] 0.4 mg capsule 0.4 mg PO BEDTIME Qty: 90 2RF ascorbic acid (vitamin C) 250 mg tablet 250 mg PO DAILY 90 Days Qty: 90 3RF amlodipine [Norvasc] 5 mg tablet 5 mg PO DAILY 90 Days Qty: 90 0RF cyanocobalamin (vitamin B-12) 1,000 mcg capsule 1,000 mcg PO DAILY 90 Days Qty: 90 1RF atorvastatin [Lipitor] 10 mg tablet 10 mg PO DAILY Qty: 90 1RF simethicone 180 mg capsule 180 mg PO TID 30 Days Qty: 90 1RF finasteride [Proscar] 5 mg tablet 5 mg PO DAILY Qty: 90 0RF cholecalciferol (vitamin D3) 50 mcg (2,000 unit) capsule 50 mcg PO DAILY 90 Days Qty: 90 3RF sildenafil [Viagra] 100 mg tablet 100 mg PO DAILY PRN (Reason: sexual activity) Rx Instructions: administer 30 minutes to 4 hours before activity lorazepam 0.5 mg tablet 0.5 mg PO BID MDD 1 mg PRN (Reason: sleep) Qty: 30 0RF docusate sodium [Colace] 100 mg capsule 100 mg PO BID PRN (Reason: constipation) Qty: 30 0RF ferrous sulfate [Iron (ferrous sulfate)] 325 mg (65 mg iron) tablet 325 mg PO DAILY omeprazole 20 mg capsule,delayed release(DR/EC) 20 mg PO DAILY
[2022-08-09 07:43] LABS: Basophils Percent Auto 0.9 % (0-2); Eosinophils Absolute Auto 0.1 X10*3/uL (0.0-0.4); Eosinophils Percent Auto 1.7 % (0-4); Hematocrit 40.3 % (42.0-52.0); Imm Gran Abs Auto 0.04 X10*3/uL (0.00-0.03); Imm Gran Pct Auto 0.9 % (0.0-0.4); Lymphocytes Absolute Auto 1.4 X10*3/uL (1.2-4.9); Lymphocytes Percent Auto 30.5 % (20-40); Mean Corpuscular HGB Conc 34.7 g/dl (31.0-36.0); Mean Corpuscular Hemoglobin 34.8 pg (27.0-33.0); Mean Corpuscular Volume 100.2 fL (80.0-98.0); Mean Platelet Volume 10.3 fL (9.4-12.4); Monocytes Absolute Auto 0.5 X10*3/uL (0.1-1.2); Monocytes Percent Auto 10.9 % (2-11); Neutrophils Absolute Auto 2.6 x10*3/uL (2.0-8.3); Neutrophils Percent Auto 55.1 % (45-73); Platelet Count 248 X10*3/uL (160-400); Red Blood Count 4.02 X10*6/uL (4.60-5.80); Red Cell Distribution Width 13.8 % (11.0-16.0); White Blood Count 4.7 X10*3/uL (4.8-10.8)
[2022-08-09 07:46] LABS: Glucose, Whole Blood 88 mg/dL (60-115)
[2022-08-09 08:07] LABS: Alanine Aminotransferase 15 U/L (0-40); Albumin Level 4.2 g/dL (3.5-5.0); Alkaline Phosphatase 47 U/L (39-117); Anion Gap 13 (12-20); Aspartate Amino Transferase 19 U/L (5-37); Bilirubin Total 0.8 mg/dL (0.0-1.0); Blood Urea Nitrogen 15 mg/dL (9-16); Calcium 9.5 mg/dL (8.4-10.2); Carbon Dioxide 25 mmol/L (22-29); Chloride 103 mmol/L (96-108); Creatinine Clr Calc Pharmacy 54.5; Estimated Glomerular Filt Rate > 60; Glucose Random 90 mg/dL (60-115); Potassium 4.4 mmol/L (3.3-5.1); Sodium 137 mmol/L (135-145); Total Protein 6.7 g/dL (6.5-8.0)
[2022-08-09 08:22] LABS: Troponin-I High Sensitivity < 3.5 ng/L (<3.5-35.0)
--- NOTE | 2022-08-09 08:54 | PC.NURSE ---
Patient resting comfortably spouse at bedside will CTM
[2022-08-09 09:48] LABS: Ethanol < 10 mg/dL
[2022-08-09 09:57] LABS: COVID-19 Test Negative (Negative); IDNOW Serial# 9DB6401D
--- NOTE | 2022-08-09 11:20 | P.HPHOSP_ITS ---
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 Pt states that last night he got up to use the bathroom twice: the first time was without incident, but during the second time when pt turned around to sit down he felt lightheaded, fainted, and hit his head on the bathtub. Pt denies LOC. Patient has pain at the site of head strike, but denies having a headache prior to syncopal episode. Patient denies blurriness, diplopia, any changes to vision. No chest pain/pressure, palpitations. No shortness of breath. Denies abdominal pain. No numbness, tingling in extremities, weakness. Of note, pt was seen for similar symptoms twice in the past week on 08/02 and 08/03 for lightheadedness and elevated BP. Pt also drinks three 5-ounce glasses of wine daily. In the ED labs were largely unremarkable: WBC 4.7 and H&H stable at 14.0/40.3, troponin negative, ethyl alcohol negative. CT of head found small subgaleal hematoma over high left parietal region with no calvarial fracture or acute intracranial finding. CT of cervical spine found no fracture or malalignment of the spine. EKG showed normal sinus rhythm and no evidence of acute ischemia. Pt will be admitted to telemetry for observation and further workup for syncope. Review of Systems Review of Systems: Lightheadedness, dizziness Syncopal episode Head strike No headache Denies numbness, tingling in extremities, no weakness No vision changes Yes all other systems are reviewed and are negative [facility] Medical History Adenocarcinoma of cecum Anemia History of urinary frequency HTN (hypertension) Hyperlipidemia Family History Father No problems noted. Mother No problems noted. Brother Cardiovascular disease Diabetes Surgical History H/O colonoscopy History of colon resection (~2020) History of esophagogastroduodenoscopy (EGD) History of left inguinal hernia repair (~02/2018) Hx of eye surgery Social History Household Members: Significant Other Housing: House Are you a primary hospice care consultant to a significant other at home: No Do you presently have visiting nurse or other home services: No Alcohol intake: never Patient Tobacco Use Status: Never used Tobacco e-Cigarette/Vaping Use: Never Used Second Hand Smoke Exposure: No Advance Directives: Yes Advance Directives on File: Yes Advance Directives Date on File: 04/12/21 service: No Current occupational status: retired Cognitive needs: No Hearing needs: No Vision needs: Yes (glasses) Meds Allergies Allergy/AdvReac Type Severity Reaction Status Date / Time lisinopril Allergy Severe lip Verified 07/04/22 15:27 swelling hydrochlorothiazide AdvReac Severe dizziness/ Verified 07/04/22 15:27 hyponatremia Active Medications: Current Medications Pharmacy Consult (Consult Rx Perform Med Rec) 1 each MISCELLANE ONCE PRN PRN Reason: Consult order Home Medications Medication Instructions Recorded Confirmed Last Taken Type omeprazole 20 mg capsule,delayed 20 mg PO DAILY 09/07/21 08/09/22 08/08/22 History release ferrous sulfate 325 mg (65 mg 325 mg PO DAILY 10/19/21 08/09/22 08/08/22 History iron) tablet (Iron (ferrous sulfate)) Physical Exam Vital Signs and Narrative: Vital Signs: Last Vital Signs Temp 97.8 F 08/09/22 07:21 Pulse 80 08/09/22 10:13 Resp 14 08/09/22 10:13 BP 147/76 H 08/09/22 10:13 Pulse Ox 98 08/09/22 10:13 O2 Del Method 08/09/22 10:13 BMI result Body Mass Index 19.0 Constitutional: Alert, in no acute distress. Mental Status: Oriented to person, place and time. Head: Left parietal hematoma with small laceration not requiring stitches Eyes: Pupils are equal, round, and reactive to light. Ear, Nose, and Throat: Oropharynx clear, mucous membranes moist. Ears and nose without deformities. Trachea midline. Respiratory: Clear to auscultation bilaterally. No wheezing, rales, or rhonchi. Cardiovascular: S1, S2 regular. No murmurs, rubs, or gallops. Gastrointestinal: Abdomen soft, non-tender, non-distended. Normal bowel sounds. Neurologic: Cranial nerves II-XI are grossly intact. No focal neurological deficits. Moves all extremities spontaneously. 5/5 strength UEB and LEB. Skin: No rashes or lesions noted. Musculoskeletal: No cyanosis or clubbing. Extremities: No edema. Psychiatric: Normal mood and affect. Results Labs 08/09/22 07:33 08/09/22 07:33 Labs: Laboratory Results - last 24 hr 08/09/22 08/09/22 08/09/22 07:28 07:33 07:33 MCV 100.2 H MCH 34.8 H MCHC 34.7 RDW 13.8 Plt Count 248 MPV 10.3 Immature Gran % (Auto) 0.9 H Neut % (Auto) 55.1 Lymph % (Auto) 30.5 Mcclain % (Auto) 10.9 Eos % (Auto) 1.7 Baso % (Auto) 0.9 Lymph # (Auto) 1.4 Mcclain # (Auto) 0.5 Eos # (Auto) 0.1 Baso # (Auto) 0.0 Abs Immat Gran (auto) 0.04 H Absolute Neuts (auto) 2.6 Absolute Nucleated RBC 0.000 Nucleated RBC % (auto) 0.0 Anion Gap 13 Estim Creat Clear Calc 54.5 Estimated GFR > 60 POC Glucose 88 Random Glucose 90 Calcium 9.5 Total Bilirubin 0.8 AST 19 ALT 15 Alkaline Phosphatase 47 Troponin I High Sens Total Protein 6.7 Albumin 4.2 Ethyl Alcohol COVID-19 (RADHA) COVID-19 Clin Com 08/09/22 08/09/22 08/09/22 07:33 09:08 09:29 MCV MCH MCHC RDW Plt Count MPV Immature Gran % (Auto) Neut % (Auto) Lymph % (Auto) Mcclain % (Auto) Eos % (Auto) Baso % (Auto) Lymph # (Auto) Mcclain # (Auto) Eos # (Auto) Baso # (Auto) Abs Immat Gran (auto) Absolute Neuts (auto) Absolute Nucleated RBC Nucleated RBC % (auto) Anion Gap Estim Creat Clear Calc Estimated GFR POC Glucose Random Glucose Calcium Total Bilirubin AST ALT Alkaline Phosphatase Troponin I High Sens < 3.5 Total Protein Albumin Ethyl Alcohol < 10 COVID-19 (RADHA) Negative COVID-19 Clin Com See Note Imaging Radiologist's Impressions: Impressions Cervical Spine CT 08/09/22 08:18 IMPRESSION: 1. No acute intracranial finding. 2. No acute fracture or malalignment of the cervical spine. Moderate degenerative changes. Head CT 08/09/22 08:18 IMPRESSION: 1. No acute intracranial finding. 2. No acute fracture or malalignment of the cervical spine. Moderate degenerative changes. 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 Pt will be admitted to telemetry for observation and further workup for syncope. Syncopal episode CT with no evidence of acute intracranial finding or fracture or malalignment of the spine. Telemetry to monitor for arrhytmias EEG [facility] Neurology consult Head laceration not requiring stitches CT of head found small subgalaleal hematoma over the high parietal region but no calvarial fracture Pain management HTN Continue home meds HLD Continue home meds Iron deficiency anemia H&H stable Continue iron supplementation Anxiety Continue home meds Full Code Attending:?Dr. Donnelly DVT Prophylaxis: Lovenox Pt will be admitted to telemetry for observation and further workup for syncope. Time Spent With Patient Time: Total time managing care of this patient today ____ minutes. Quality Stroke Does the patient have a stroke diagnosis?: No VTE Prior VTE?: No VTE Risk Level:: Medical - moderate - high VTE Device Contraindication: Treatment Not Indicated VTE Drug Contraindication: N/A - Med Ordered
--- NOTE | 2022-08-09 11:31 | PHA.MEDREC ---
Pharmacy Consult ? Medication Reconciliation Pharmacy has completed the medication reconciliation. Patient and spouse confirmed all medications. Patient did not have any medications this morning. Aarti Smith, PharmD
--- NOTE | 2022-08-09 12:16 | PC.NURSE ---
Verified with MD nava collar removed will CTM
[2022-08-09] MEDS: Ferrous Sulfate 324 MG TABLET.DR PO (13:31)
[2022-08-09] MEDS: Enoxaparin Sodium 40 MG/0.4 ML SYRINGE SUBCUT (13:31)
[2022-08-09] MEDS: Cyanocobalamin (Vitamin B-12) 1,000 MCG TABLET 1000 MCG PO (13:32)
[2022-08-09] MEDS: amLODIPine Besylate 5 MG TABLET PO (13:32)
[2022-08-09] MEDS: Omeprazole 20 MG CAPSULE.DR PO (13:32)
[2022-08-09] MEDS: Ascorbic Acid 250 MG TABLET PO (13:32)
[2022-08-09] MEDS: Cholecalciferol (Vitamin D3) 25 MCG TABLET 50 MCG PO (13:32)
[2022-08-09] MEDS: Finasteride 5 MG TABLET PO (13:33)
[2022-08-09] MEDS: Atorvastatin Calcium 10 MG TABLET PO (13:33)
--- NOTE | 2022-08-09 13:44 | PC.NURSE ---
Notified inpatient provider patient asking for anxiety meds awaiting orders
--- NOTE | 2022-08-09 14:12 | PC.NURSE ---
Report to Veena TERRELL will prepare for transfer
--- NOTE | 2022-08-09 15:05 | P.CNNE_ITS ---
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 He reported multiple similar events during last few days usually at night. There was no obvious warning. There was no significant physical injury that he sustained. There was no incontinence. Review of Systems Review of Systems: No recent cold or flu-like illness chest pain palpitation or shortness of breath. [facility] Past Medical History Medical History Adenocarcinoma of cecum Anemia History of urinary frequency HTN (hypertension) Hyperlipidemia Family History Family History Father No problems noted. Mother No problems noted. Brother Cardiovascular disease Diabetes Surgical History Surgical History H/O colonoscopy History of colon resection (~2020) History of esophagogastroduodenoscopy (EGD) History of left inguinal hernia repair (~02/2018) Hx of eye surgery Social History Social History Household Members: Significant Other Housing: House Are you a primary clinical manager home care to a significant other at home: No Do you presently have visiting nurse or other home services: No Alcohol intake: never Patient Tobacco Use Status: Never used Tobacco e-Cigarette/Vaping Use: Never Used Second Hand Smoke Exposure: No Advance Directives: Yes Advance Directives on File: Yes Advance Directives Date on File: 04/12/21 service: No Current occupational status: retired Cognitive needs: No Hearing needs: No Vision needs: Yes (glasses) Meds Allergies Allergy/AdvReac Type Severity Reaction Status Date / Time lisinopril Allergy Severe lip Verified 07/04/22 15:27 swelling hydrochlorothiazide AdvReac Severe dizziness/ Verified 07/04/22 15:27 hyponatremia Active Medications: Current Medications Acetaminophen (Acetaminophen 325 Mg Tablet) 650 mg PO Q6H PRN PRN Reason: Pain, Mild (Pain Scale 1-3) Amlodipine Besylate (Amlodipine Besylate 5 Mg Tablet) 5 mg PO DAILY [facility]; Protocol Last Admin: 08/09/22 13:32 Dose: 5 mg Ascorbic Acid (Ascorbic Acid 250 Mg Tablet) 250 mg PO DAILY [facility] Last Admin: 08/09/22 13:32 Dose: 250 mg Atorvastatin Calcium (Atorvastatin Calcium 10 Mg Tablet) 10 mg PO DAILY [facility] Last Admin: 08/09/22 13:33 Dose: 10 mg Cyanocobalamin (Cyanocobalamin (Vitamin B-12) 1,000 Mcg Tablet) 1,000 mcg PO DAILY [facility] Last Admin: 08/09/22 13:32 Dose: 1,000 mcg Docusate Sodium (Docusate Sodium 100 Mg Capsule) 100 mg PO DAILY PRN PRN Reason: Constipation Enoxaparin Sodium (Enoxaparin Sodium 40 Mg/0.4 Ml Syringe) 40 mg SUBCUT Q24H [facility] Last Admin: 08/09/22 13:31 Dose: 40 mg Ferrous Sulfate (Ferrous Sulfate 324 Mg Tablet.) 324 mg PO DAILY [facility] Last Admin: 08/09/22 13:31 Dose: 324 mg Finasteride (Finasteride 5 Mg Tablet) 5 mg PO DAILY [facility] Last Admin: 08/09/22 13:33 Dose: 5 mg Lorazepam (Lorazepam 0.5 Mg Tablet) 0.5 mg PO BID PRN PRN Reason: sleep Omeprazole (Omeprazole 20 Mg Capsule.) 20 mg PO DAILY@0630 [facility] Last Admin: 08/09/22 13:32 Dose: 20 mg Ondansetron HCl (Ondansetron Hcl 4 Mg/2 Ml Vial) 4 mg IVPUSH Q8H PRN PRN Reason: Nausea and Vomiting Pharmacy Consult (Consult Rx Perform Med Rec) 1 each MISCELLANE ONCE PRN PRN Reason: Consult order Sodium Chloride (0.9 % Sodium Chloride Flush 3 Ml Syringe) 3 ml IVFLUSH QSHIFT [facility] Tamsulosin HCl (Tamsulosin Hcl 0.4 Mg Capsule) 0.4 mg PO BEDTIME [facility] Vitamin D (Cholecalciferol (Vitamin D3) 25 Mcg Tablet) 50 mcg PO DAILY [facility] Last Admin: 08/09/22 13:32 Dose: 50 mcg Home Medications Medication Instructions Recorded Confirmed Last Taken Type omeprazole 20 mg capsule,delayed 20 mg PO DAILY 0208/09/22 08/08/22 History release ferrous sulfate 325 mg (65 mg 325 mg PO DAILY 10/19/21 08/09/22 08/08/22 History iron) tablet (Iron (ferrous sulfate)) Physical Exam Vital Signs: Vital Signs: Last Vital Signs Temp 97.8 F 08/09/22 07:21 Pulse 128 H 08/09/22 12:07 Resp 12 08/09/22 12:03 BP 141/83 H 08/09/22 12:07 Pulse Ox 97 08/09/22 12:03 O2 Del Method 08/09/22 12:03 BMI result Body Mass Index 19.0 Neuro: Other: Alert and awake with normal spontaneity of speech fluency comprehension and flat affect. Face is symmetrical. Visual coates are full. There is no pronator drift. Deep tendon reflexes are trace to absent with flexor plantars. Results Labs 08/09/22 07:33 08/09/22 07:33 Labs: Short CBC 08/09/22 Range/Units 07:33 WBC 4.7 L (4.8-10.8) X10*3/uL Hgb 14.0 (14.0-18.0) g/dl Hct 40.3 L (42.0-52.0) % Plt Count 248 (160-400) X10*3/uL BMP 08/09/22 07:33 Sodium 137 Potassium 4.4 D Chloride 103 Carbon Dioxide 25 BUN 15 Creatinine 0.88 Calcium 9.5 Liver Function 08/09/22 Range/Units 07:33 Total Bilirubin 0.8 (0.0-1.0) mg/dL AST 19 (5-37) U/L ALT 15 (0-40) U/L Alkaline Phosphatase 47 (39-117) U/L Albumin 4.2 (3.5-5.0) g/dL On head CT Moderately severe diffuse cerebral cortical and cerebellar atrophy with mild microvascular ischemic changes are noted. There is no obvious acute lesion. 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 Etiology was unclear as his blood pressure was not that low. Routine EEG is recommended to rule out seizure disorder. Time Spent With Patient Time: Total time managing care of this patient today ____ minutes. Procedures Date of Service Date of Service: 08/09/22
[2022-08-09] MEDS: 0.9 % Sodium Chloride Flush 3 ML SYRINGE IVFLUSH (16:06)
[2022-08-09] MEDS: Tamsulosin HCL 0.4 MG CAPSULE PO (20:38)
[2022-08-09] MEDS: LORazepam 0.5 MG TABLET PO (20:38)
[2022-08-10] VITALS (9 sets, daily range): BP systolic 90–160; BP diastolic 56–89; PULSE 74–99; RESP 18–20; TEMP 36.8–37.2; O2SAT 95–98
--- NOTE | 2022-08-10 | EEG_ITS ---
This is a 16-channel EEG with an EKG lead. Patient is reported awake during the tracing. Background EEG rhythm is 7 to 8 hertz, 5 to 15 microvolt posteriorly, lower amplitude fast anteriorly. Photic stimulation does not produce any significant driving. Hypoventilation is not performed. No sharp spikes or paroxysmal tendency noted. Cardiac lead does not reveal any significant abnormality. IMPRESSION: Mild generalized slowing with no evidence of seizure disorder. MD LILY Brown/JIAN / [id number]
[2022-08-10] MEDS: 0.9 % Sodium Chloride Flush 3 ML SYRINGE IVFLUSH ×2 (05:17→08:10)
[2022-08-10] MEDS: Omeprazole 20 MG CAPSULE.DR PO (05:18)
[2022-08-10] MEDS: Finasteride 5 MG TABLET PO (08:07)
[2022-08-10] MEDS: Cyanocobalamin (Vitamin B-12) 1,000 MCG TABLET 1000 MCG PO (08:07)
[2022-08-10] MEDS: amLODIPine Besylate 5 MG TABLET PO (08:07)
[2022-08-10] MEDS: Ascorbic Acid 250 MG TABLET PO (08:08)
[2022-08-10] MEDS: Ferrous Sulfate 324 MG TABLET.DR PO (08:08)
[2022-08-10] MEDS: Atorvastatin Calcium 10 MG TABLET PO (08:08)
[2022-08-10] MEDS: Cholecalciferol (Vitamin D3) 25 MCG TABLET 50 MCG PO (08:08)
--- NOTE | 2022-08-10 08:31 | MHC.CM.PN ---
CM met with Patient at bedside and addressed GIRON with him(original was given to him and a copy has been placed on the chart). 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 Home/self care is the goal and CM has initiated and will follow for dc planning. PCP/PA is Rocael Reeves and Patient has received [employer] vax X3.
--- NOTE | 2022-08-10 11:29 | P.DS_ITS ---
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 Pt states that last night he got up to use the bathroom twice: the first time was without incident, but during the second time when pt turned around to sit down he felt lightheaded, fainted, and hit his head on the bathtub. Pt denies LOC. Patient has pain at the site of head strike, but denies having a headache prior to syncopal episode.? Patient denies blurriness, diplopia, any changes to vision.? No chest pain/pressure, palpitations.? No shortness of breath.? Denies abdominal pain.? No numbness, tingling in extremities, weakness.? Of note, pt was seen for similar symptoms twice in the past week on 08/02 and 08/03 for lightheadedness and elevated BP. Pt also drinks three 5-ounce glasses of wine daily. In the ED labs were largely unremarkable: WBC 4.7 and H&H stable at 14.0/40.3, troponin negative, ethyl alcohol negative. CT of head found small subgaleal hematoma over high left parietal region with no calvarial fracture or acute intracranial finding.? CT of cervical spine found no fracture or malalignment of the spine.? EKG showed normal sinus rhythm and no evidence of acute ischemia. Pt will be admitted to telemetry for observation and further workup for syncope. hospital course: Patient presented with an episode of syncope as stated above, work up has included head CT showing no acute finding, ECG show no ischemic changes. Cardiac telemetry has not shown any arrhythmia, no orthostatic hypotension Neuro saw him and recommends routine EEG. Time Spent with Patient Time attestation: Total time managing care of this patient today ____ minutes. Discharge coordination time: Greater than 30 minutes Quality: Safe Use of Opioids Does Pt have an Active Cancer Diagnosis on the Problem List?: No Quality: Stroke Does the patient have a stroke diagnosis?: No Physical Exam Vital Signs: Vital Signs: Last Vital Signs Temp 98.3 F 08/10/22 11:15 Pulse 82 08/10/22 11:15 Resp 18 08/10/22 11:15 BP 146/72 H 08/10/22 11:15 Pulse Ox 98 08/10/22 11:15 O2 Del Method 08/10/22 11:15 BMI result Body Mass Index 19.6 DS: Data Data Completed and Pending Completed studies during hospitalization [Text1]: Procedures Drainage of Abdomen Skin, External Approach (05/24/21) Excision of Stomach, Pylorus, Via Natural or Artificial Opening Endoscopic, Diagnostic (06/25/21) Resection of Right Large Intestine, Open Approach (05/24/21) Discharge Plan Discharge Anticipated Discharge Date/Time: 08/10/22 11:23 Patient Disposition: Home, Self-Care Discharge Diagnosis: Syncope Referrals: Rocael Reeves PA-C [Primary Care Provider] - 1 Week Discharge Medications: Continued tamsulosin [Flomax] 0.4 mg capsule 0.4 mg PO BEDTIME Qty: 90 2RF ascorbic acid (vitamin C) 250 mg tablet 250 mg PO DAILY 90 Days Qty: 90 3RF amlodipine [Norvasc] 5 mg tablet 5 mg PO DAILY 90 Days Qty: 90 0RF cyanocobalamin (vitamin B-12) 1,000 mcg capsule 1,000 mcg PO DAILY 90 Days Qty: 90 1RF atorvastatin [Lipitor] 10 mg tablet 10 mg PO DAILY Qty: 90 1RF finasteride [Proscar] 5 mg tablet 5 mg PO DAILY Qty: 90 0RF cholecalciferol (vitamin D3) 50 mcg (2,000 unit) capsule 50 mcg PO DAILY 90 Days Qty: 90 3RF lorazepam 0.5 mg tablet 0.5 mg PO BID MDD 1 mg PRN (Reason: sleep) Qty: 30 0RF docusate sodium [Colace] 100 mg capsule 100 mg PO BID PRN (Reason: constipation) Qty: 30 0RF ferrous sulfate [Iron (ferrous sulfate)] 325 mg (65 mg iron) tablet 325 mg PO DAILY omeprazole 20 mg capsule,delayed release(DR/EC) 20 mg PO DAILY Discharge Orders: Discharge Order (Routine); Ordered 08/10/22 Ordered By: Chacorta Magallanes Diet: Advance to usual diet Activity on Discharge: As tolerated Stand Alone Forms: Patient Portal Discharge page Care Plan Goals: recovery from syncope Health Concerns: syncope Plan of Treatment: continue your usual medication and if this happens again you migh need more testing Assessment: as above
--- NOTE | 2022-08-10 11:30 | MHC.CM.PN ---
Patient has been medically cleared for dc to home today, self care.
[2022-08-10] MEDS: Enoxaparin Sodium 40 MG/0.4 ML SYRINGE SUBCUT (13:14)
[2022-08-10] MEDS: 0.9 % Sodium Chloride 500 ML IV (15:01)
== END 2022-08-10 16:39 | disposition home or self-care (01) ==
LOC: HO.ED 09:03 → HO.EDOVER 13:51 → HO.IMC 14:02
PROVIDERS: Admitting Provider Student in an Organized Health Care Education/Training Program; Emergency Provider Emergency Medicine; PCP Physician Assistant; Visit Provider Internal Medicine
DX: R55 Syncope and collapse (principal); S00.03XA Contusion of scalp, initial encounter; S01.01XA Laceration without foreign body of scalp, initial encounter; W17.89XA Other fall from one level to another, initial encounter; I10 Essential (primary) hypertension; E78.5 Hyperlipidemia, unspecified; D64.9 Anemia, unspecified; F41.9 Anxiety disorder, unspecified; C18.0 Malignant neoplasm of cecum; Z91.81 History of falling; Y93.89 Activity, other specified; Y92.012 Bathroom of single-family (private) house as the place of occurrence of the external cause; Y99.8 Other external cause status; Z20.822 Contact with and (suspected) exposure to COVID-19; Z79.02 Long term (current) use of antithrombotics/antiplatelets; Z79.899 Other long term (current) drug therapy
CPT/HCPCS: 36415; 70450; 72125; 80053; 82077; 82947; 84484; 85025; 87635; 93005; 95816; 96360; 96372; 99222; 99285; J1650

== ENCOUNTER 2022-09-01 11:20 | Emergency (ER) | payer MEDICARE, SELFPAY ==
--- NOTE | ~2022-09-01 | CT_ITS ---
EXAMINATION: CT HEAD WITHOUT CONTRAST CLINICAL INFORMATION: Dizziness. COMPARISON: Head CT scan dated 08/09/2022. TECHNIQUE: Contiguous axial imaging was performed from the skull base to vertex without intravenous administration of contrast. Coronal and sagittal reformatted images were obtained. This CT examination was performed using dose optimization techniques as appropriate, variously including the following: *Automated exposure control *Adjustment of mA and/or kV according to patient size (this includes techniques or standardized protocols for targeted exams where dose is matched to indication/reason for exam; i.e. extremities or head) *Use of iterative reconstruction technique DLP: 585 mGy-cm FINDINGS: There is mild widening of the cortical sulci and associated ventriculomegaly. Minimal periventricular microvascular changes are seen. The lateral ventricles are symmetrical. The third and fourth ventricles are in their normal midline position. The basilar and prepontine cisterns are unremarkable. There is no acute intra or extracerebral abnormality. There is no mass effect or midline shift. Sections through the bony calvarium are unremarkable. The orbits are intact. The paranasal sinuses are clear. The mastoid air cells are clear. Moderate mid nasal septal deviation apex the right with moderate apical spur. Mild left tomas bullosa. CT/CT head/brain wo IV con IMPRESSION: No acute intracranial pathology.
--- NOTE | ~2022-09-01 | XR_ITS ---
EXAMINATION: XR CHEST CLINICAL INFORMATION: Dizziness. COMPARISON: 08/03/2022 chest radiograph. TECHNIQUE: 2 views of the chest were obtained. FINDINGS: The lungs are clear. Mild biapical pleural scarring is seen. There are no pleural effusions. The heart and mediastinal structures are unremarkable. XR/XR chest 2V IMPRESSION: No acute cardiopulmonary process.
[2022-09-01 11:31] VITALS: BP 158/87; PULSE 91; RESP 20; TEMP 36.6; O2SAT 98; BMI 19.3
--- NOTE | 2022-09-01 11:34 | ECG_ITS ---
Test Reason : dizziness he woke up at 2am with it Blood Pressure : / mmHG Vent. Rate : 081 BPM Atrial Rate : 081 BPM P-R Int : 184 ms QRS Dur : 078 ms QT Int : 358 ms P-R-T Axes : 000 013 -03 degrees QTc Int : 415 ms Normal sinus rhythm Normal ECG When compared with ECG of 09-AUG-2022 07:25, T wave inversion now evident in Inferior leads Referred By: Niesha Black Electronically Signed By:Tariq Emerson
--- NOTE | 2022-09-01 11:34 | ED_ITS ---
HPI - Dizziness General Chief Complaint: Dizziness <GILBERT Trujillo - Last Filed: 09/01/22 11:54> Stated Complaint: Feels near syncope <GILBERT Trujillo - Last Filed: 09/01/22 11:54> Time Seen by Provider: 09/01/22 16:15 <GILBERT Trujillo - Last Filed: 09/01/22 11:54> Source: patient, family () and RN notes reviewed <Kennedy Farias - Last Filed: 09/01/22 17:16> Mode of arrival: ambulatory <Kennedy Farias - Last Filed: 09/01/22 17:16> Limitations: no limitations <Kennedy Farias - Last Filed: 09/01/22 17:16> History of Present Illness HPI Narrative: 81-year-old male past medical history significant for anxiety, hypertension, alcohol use disorder, chronic anemia presents for evaluation of ?I feel like going to pass out? The patient reports starting on the middle of night last night when he got to the bathroom ?I felt like I was weaker and going to pass out. The patient did not pass out or fall at all The patient denies any other symptoms including chest pain, shortness of breath no palpitations, leg swelling, headache He denies any nausea, vomiting, diarrhea, abdominal pain Patient reports that at this time he feels somewhat better but still feels a little bit faint when he stands up. Of note, the patient was seen here 3 times last month all for similar complaints and he had an observation stay due to a possible syncopal episode. Each time he had a negative workup. The patient reports he is going to see [facility] next Sunday for a Holter monitor that is scheduled for 1 week. No other complaints or concerns at this time. <Kennedy Farias - Last Filed: 09/01/22 17:16> Related Data Home Medications: Home Medications Medication Instructions Recorded Confirmed omeprazole 20 mg capsule,delayed 20 mg PO DAILY 09/07/21 08/18/22 release ferrous sulfate 325 mg (65 mg 325 mg PO DAILY 10/19/21 08/18/22 iron) tablet (Iron (ferrous sulfate)) Previous Rx's Medication Instructions Recorded docusate sodium 100 mg capsule 100 mg PO BID PRN constipation #30 07/01/21 (Colace) caps tamsulosin 0.4 mg capsule (Flomax) 0.4 mg PO BEDTIME #90 caps 04/25/22 ascorbic acid (vitamin C) 250 mg 250 mg PO DAILY 90 days #90 tabs 05/29/22 tablet amlodipine 5 mg tablet (Norvasc) 5 mg PO DAILY htn 90 days #90 tabs 06/20/22 cyanocobalamin (vitamin B-12) 1,000 mcg PO DAILY 90 days #90 caps 06/22/22 1,000 mcg capsule atorvastatin 10 mg tablet (Lipitor) 10 mg PO DAILY #90 tabs 07/03/22 finasteride 5 mg tablet (Proscar) 5 mg PO DAILY #90 tabs 07/07/22 cholecalciferol (vitamin D3) 50 50 mcg PO DAILY 90 days #90 caps 07/24/22 mcg (2,000 unit) capsule lorazepam 0.5 mg tablet 0.5 mg PO BID PRN sleep #30 tabs 08/03/22 <GILBERT Trujillo - Last Filed: 09/01/22 11:54> Allergies/Adverse Reactions: Allergies Allergy/AdvReac Type Severity Reaction Status Date / Time lisinopril Allergy Severe lip Verified 08/18/22 09:31 swelling hydrochlorothiazide AdvReac Severe dizziness/ Verified 08/18/22 09:31 hyponatremia <GILBERT Trujillo - Last Filed: 09/01/22 11:54> Review of Systems Constitutional: Constitutional: Reports as per HPI, Denies chills and Denies fatigue <Kennedy Farias - Last Filed: 09/01/22 17:16> Comments: Patient reports feeling generally weak and faint <Kennedy Farias - Last Filed: 09/01/22 17:16> Cardiovascular: Cardiovascular: Denies chest pain, Denies Epigastric Pain, Denies rapid heart rate, Denies edema, Denies irregular heart rhythm, Reports lightheadedness, Denies dyspnea and Denies dyspnea on exertion <Kennedy Farias - Last Filed: 09/01/22 17:16> Respiratory: Respiratory: Denies cough, Denies dyspnea and Denies dyspnea on exertion <Kennedy Farias - Last Filed: 09/01/22 17:16> Gastrointestinal: Gastrointestinal: Denies abdominal pain, Denies constipation and Denies vomiting <Kennedy Farias - Last Filed: 09/01/22 17:16> Genitourinary: Genitourinary: Denies difficulty urinating and Denies dysuria <Kennedy Farias - Last Filed: 09/01/22 17:16> Endocrine: Endocrine: Denies fatigue <Kennedy Farias - Last Filed: 09/01/22 17:16> [facility] Past Medical History Attestation statement: The following information was validated with the patient. <Kennedy Farias - Last Filed: 09/01/22 17:16> Source: old records reviewed and obtained from family <Kennedy Farias - Last Filed: 09/01/22 17:16> Medical History: Medical History Adenocarcinoma of cecum Anemia History of urinary frequency HTN (hypertension) Hyperlipidemia <GILBERT Trujillo - Last Filed: 09/01/22 11:54> Surgical History: Surgical History H/O colonoscopy History of colon resection (~2020) History of esophagogastroduodenoscopy (EGD) History of left inguinal hernia repair (~02/2018) Hx of eye surgery <GILBERT Trujillo - Last Filed: 09/01/22 11:54> Family History Family History: Family History Father No problems noted. Mother No problems noted. Brother Cardiovascular disease Diabetes <GILBERT Trujillo - Last Filed: 09/01/22 11:54> Social History Social History: Social History Household Members: Significant Other Housing: House Are you a primary emergency care attendant to a significant other at home: No Do you presently have visiting nurse or other home services: No Alcohol intake: never Patient Tobacco Use Status: Never used Tobacco e-Cigarette/Vaping Use: Never Used Second Hand Smoke Exposure: No Advance Directives: Yes Advance Directives on File: Yes Advance Directives Date on File: 04/12/21 service: No Current occupational status: retired Cognitive needs: No Hearing needs: No Vision needs: Yes (glasses) <GILBERT Trujillo - Last Filed: 09/01/22 11:54> Physical Exam Vital Signs: Vital Signs: Last Vital Signs Temp 97.8 F 09/01/22 11:31 Pulse 91 09/01/22 11:31 Resp 20 09/01/22 11:31 BP 158/87 H 09/01/22 11:31 Pulse Ox 98 09/01/22 11:31 O2 Del Method 09/01/22 11:31 BMI result Body Mass Index 19.3 <GILBERT Trujillo - Last Filed: 09/01/22 11:54> Vital Signs: Last Vital Signs Temp 97.8 F 09/01/22 11:31 Pulse 91 09/01/22 11:31 Resp 20 09/01/22 11:31 BP 158/87 H 09/01/22 11:31 Pulse Ox 98 09/01/22 11:31 O2 Del Method 09/01/22 11:31 BMI result Body Mass Index 19.3 <Kennedy Farias - Last Filed: 09/01/22 17:16> Const: General: cooperative, healthy appearing, comfortable, no acute distress and well developed <Kennedy Farias - Last Filed: 09/01/22 17:16> Orientation/consciousness: patient oriented x3 <Kennedy Codyy - Last Filed: 09/01/22 17:16> Limitations: no limitations <Kennedy Farias - Last Filed: 09/01/22 17:16> HEENT: Head: Yes normocephalic and Yes atraumatic <Kennedy Farias - Last Filed: 09/01/22 17:16> Eyes: Eyelids: Yes eyelids normal <Kennedy Codyy - Last Filed: 09/01/22 17:16> Conjunctivae: conjunctivae normal <Kennedy Codyy - Last Filed: 09/01/22 17:16> Sclerae: sclerae normal <Kennedy Codyy - Last Filed: 09/01/22 17:16> Corneas: corneas normal <Kennedy Codyy - Last Filed: 09/01/22 17:16> Pupils: Equal, round and reactive pupils present and Pupil accommodation reflex normal <Kennedy OLincoln - Last Filed: 09/01/22 17:16> EOM: EOMs intact bilaterally <Kennedy O - Last Filed: 09/01/22 17:16> Neck: Neck: Yes full ROM <Kennedy Last Filed: 09/01/22 17:16> Chest: Chest palpation & inspection: normal inspection of the chest <Kennedy - Last Filed: 09/01/22 17:16> Resp: Effort & Inspection: normal respiratory effort and able to speak in complete sentences <Kennedy - Last Filed: 09/01/22 17:16> Auscultation: clear to auscultation bilaterally < - Last Filed: 09/01/22 17:16> Cardio: Rate: regular rate < Last Filed: 09/01/22 17:16> Rhythm: regular rhythm < Last Filed: 09/01/22 17:16> GI: Palpation (GI): Soft to palpation, nontender and no guarding <Kennedy Last Filed: 09/01/22 17:16> Auscultation: normoactive bowel sounds <Kennedy Last Filed: 09/01/22 17:16> Skin: General skin exam: no rashes or lesions noted <Kennedy Last Filed: 09/01/22 17:16> Neuro: General: patient oriented x3 <Kennedy O Last Filed: 09/01/22 17:16> Cranial nerves: Yes CN's II-XII intact bilaterally and Yes Equal, round and reactive pupils present <Kennedy Russ - Last Filed: 09/01/22 17:16> Gait exam (Neuro): Normal gait present < - Last Filed: 09/01/22 17:16> Motor exam (neuro): Pronator motor function not present and no tremor noted < Last Filed: 09/01/22 17:16> Coordination: [id number] test normal, zodc-ov-[id number] test normal and Romberg test negative <Kennedy Farias - Last Filed: 09/01/22 17:16> Course Course Course Narrative: RME-11:36PM 81yoM with a PMHx of alcohol abuse, HTN, HLD, Iron deficiency anemia, adenocarcinoma who is presenting with his with complaints of feeling unwell like lightheadedness. He reports this started when he woke up at 02:00. He denies any falls, actual dizziness, change in vision, nausea/vomiting, paresthesias, focal weakness, chest pain or shortness of breath, abdominal pain, diarrhea, lower extremity edema or calf tenderness or any other symptoms complaints or concerns at this time. On exam patient is alert and oriented x3. Not in any acute distress. Normal steady gait. No facial deficit noted. Cranial nerves are intact bilaterally. Motor 5/5 throughout to 4 extremities. Reflexes intact bilaterally on all 4 extremities. Normal sensation throughout. Negative pronator drift. No nystagmus is noted. Therefore patient not a tPA candidate as patient has non disabling symptoms. Plan: Labs, EKG, CXR, CT scan of brain, UA and patient will be sent back to the waiting room to be evaluated in the ED. <GILBERT Trujillo - Last Filed: 09/01/22 11:54> Medical Decision Making Medical Decision Making MDM Narrative: 81-year-old male with past medical history significant for anxiety multiple recent visits for similar presentation of today. He again had a negative workup. His initial EKG today showed a question of T-wave inversions in the inferior leads when compared to previous from August 09, 2022. We repeated the EKG today and was more consistent with his previous EKG, there are no T-wave inversions present in the EKG if repeat which reads normal sinus rhythm with a rate of 93 beats per minute. l. The patient never had any chest pain to suggest ACS. He had a negative troponin of less than 3.5 despite his symptoms starting over 12 hours ago. Patient's neurologic exam is negative including cerebellar exam: Less likely to be CVA. No focal weakness tone. Vital signs remained stable throughout the stay. The patient is currently asymptomatic and he is stable for discharge at this time. He will follow-up with cardiology next week as planned for his Holter monitor. <Kennedy Farias - Last Filed: 09/01/22 17:16> Differential Diagnosis Differential Diagnoses: The differential diagnosis associated with the presentation includes <Kennedy SolanoMendoza - Last Filed: 09/01/22 17:16> Anxiety Arrhythmia Orthostasis Dehydration Electrolytes normal next item ACS less likely <Kennedy RussDaynay - Last Filed: 09/01/22 17:16> Lab Data [facility] Lab Attestation statement: I reviewed the patient's lab results. <Kennedy NathanLincoln - Last Filed: 09/01/22 17:16> Patient's total bilirubin was slightly elevated 2.0 L no abdominal pain whatsoever abdominal fast exam and no GI symptoms to suggest biliary disease. <Kennedy Farias - Last Filed: 09/01/22 17:16> Result Diagrams: 09/01/22 12:03 09/01/22 12:03 <GILBERT Trujillo - Last Filed: 09/01/22 11:54> Labs: Lab Results 09/01/22 09/01/22 09/01/22 Range/Units 12:03 12:03 12:03 WBC 7.5 (4.8-10.8) X10*3/uL RBC 4.21 L (4.60-5.80) X10*6/uL Hgb 14.4 (14.0-18.0) g/dl Hct 42.0 (42.0-52.0) % MCV 99.8 H (80.0-98.0) fL MCH 34.2 H (27.0-33.0) pg MCHC 34.3 (31.0-36.0) g/dl RDW 13.2 (11.0-16.0) % Plt Count 313 D (160-400) X10*3/uL MPV 10.2 (9.4-12.4) fL Immature Gran % (Auto) 0.4 (0.0-0.4) % Neut % (Auto) 76.9 H (45-73) % Lymph % (Auto) 13.5 L (20-40) % [place] % (Auto) 8.4 (2-11) % Eos % (Auto) 0.1 (0-4) % Baso % (Auto) 0.7 (0-2) % Lymph # (Auto) 1.0 L (1.2-4.9) X10*3/uL [place] # (Auto) 0.6 (0.1-1.2) X10*3/uL Eos # (Auto) 0.0 (0.0-0.4) X10*3/uL Baso # (Auto) 0.1 (0.0-0.2) X10*3/uL Abs Immat Gran (auto) 0.03 (0.00-0.03) X10*3/uL Absolute Neuts (auto) 5.8 (2.0-8.3) x10*3/uL Absolute Nucleated RBC 0.000 (0.0-0.012) X10*3/uL Nucleated RBC % (auto) 0.0 (0.0-0.2) /100WBC PT 10.7 (10.0-13.1) SEC INR 0.9 (0.9-1.1) Sodium 136 (135-145) mmol/L Potassium 4.3 (3.3-5.1) mmol/L Chloride 103 (96-108) mmol/L Carbon Dioxide 22 (22-29) mmol/L Anion Gap 15 (12-20) BUN 11 (9-16) mg/dL Creatinine 0.81 (0.5-1.4) mg/dL Estim Creat Clear Calc 60.2 Estimated GFR > 60 Random Glucose 100 (60-115) mg/dL Calcium 9.4 (8.4-10.2) mg/dL Magnesium 2.1 (1.6-2.6) mg/dL Total Bilirubin 2.0 H (0.0-1.0) mg/dL AST 18 (5-37) U/L ALT 13 (0-40) U/L Alkaline Phosphatase 51 (39-117) U/L Troponin I High Sens (<3.5-35.0) ng/L Total Protein 7.1 (6.5-8.0) g/dL Albumin 4.4 (3.5-5.0) g/dL Urine Color Urine Appearance Urine pH (5.0-9.0) Ur Specific [place] (1.005-1.025) Urine Protein (Neg-Trace) mg/dL Urine Glucose (UA) (Negative) mg/dL Urine Ketones (Negative) mg/dL Urine Blood (Negative) Urine Nitrite (Negative) Ur Leukocyte Esterase (Negative) Urine RBC (0-2) /HPF Urine WBC (0-5) /HPF Ur Squamous Epith Cells (0-2) /HPF Urine Bacteria (None Seen) Hyaline Casts (0-2) /LPF Urine Opiates Screen (Not Detect) Urine Fentanyl Screen (Not Detect) Ur Barbiturates Screen (Not Detect) Ur Phencyclidine Scrn (Not Detect) Ur Amphetamines Screen (Not Detect) U Benzodiazepines Scrn (Not Detect) Urine Cocaine Screen (Not Detect) U Marijuana (THC) Screen (Not Detect) Ethyl Alcohol < 10 mg/dL Influenza Type A (PCR) (Negative) Influenza Type B (PCR) (Negative) RSV RNA Qual (PCR) (Negative) SARS-CoV-2 RNA (RT-PCR) (Negative) 09/01/22 09/01/22 09/01/22 Range/Units 12:03 12:03 12:03 WBC (4.8-10.8) X10*3/uL RBC (4.60-5.80) X10*6/uL Hgb (14.0-18.0) g/dl Hct (42.0-52.0) % MCV (80.0-98.0) fL MCH (27.0-33.0) pg MCHC (31.0-36.0) g/dl RDW (11.0-16.0) % Plt Count (160-400) X10*3/uL MPV (9.4-12.4) fL Immature Gran % (Auto) (0.0-0.4) % Neut % (Auto) (45-73) % Lymph % (Auto) (20-40) % [place] % (Auto) (2-11) % Eos % (Auto) (0-4) % Baso % (Auto) (0-2) % Lymph # (Auto) (1.2-4.9) X10*3/uL [place] # (Auto) (0.1-1.2) X10*3/uL Eos # (Auto) (0.0-0.4) X10*3/uL Baso # (Auto) (0.0-0.2) X10*3/uL Abs Immat Gran (auto) (0.00-0.03) X10*3/uL Absolute Neuts (auto) (2.0-8.3) x10*3/uL Absolute Nucleated RBC (0.0-0.012) X10*3/uL Nucleated RBC % (auto) (0.0-0.2) /100WBC PT (10.0-13.1) SEC INR (0.9-1.1) Sodium (135-145) mmol/L Potassium (3.3-5.1) mmol/L Chloride (96-108) mmol/L Carbon Dioxide (22-29) mmol/L Anion Gap (12-20) BUN (9-16) mg/dL Creatinine (0.5-1.4) mg/dL Estim Creat Clear Calc Estimated GFR Random Glucose (60-115) mg/dL Calcium (8.4-10.2) mg/dL Magnesium (1.6-2.6) mg/dL Total Bilirubin (0.0-1.0) mg/dL AST (5-37) U/L ALT (0-40) U/L Alkaline Phosphatase (39-117) U/L Troponin I High Sens < 3.5 (<3.5-35.0) ng/L Total Protein (6.5-8.0) g/dL Albumin (3.5-5.0) g/dL Urine Color Yellow Urine Appearance Clear Urine pH 6.5 (5.0-9.0) Ur Specific [place] <= 1.005 (1.005-1.025) Urine Protein Negative (Neg-Trace) mg/dL Urine Glucose (UA) Negative (Negative) mg/dL Urine Ketones Negative (Negative) mg/dL Urine Blood Trace H (Negative) Urine Nitrite Negative (Negative) Ur Leukocyte Esterase Negative (Negative) Urine RBC 0-2 (0-2) /HPF Urine WBC 0-5 (0-5) /HPF Ur Squamous Epith Cells 0-2 (0-2) /HPF Urine Bacteria None Seen (None Seen) Hyaline Casts 0-2 (0-2) /LPF Urine Opiates Screen (Not Detect) Urine Fentanyl Screen (Not Detect) Ur Barbiturates Screen (Not Detect) Ur Phencyclidine Scrn (Not Detect) Ur Amphetamines Screen (Not Detect) U Benzodiazepines Scrn (Not Detect) Urine Cocaine Screen (Not Detect) U Marijuana (THC) Screen (Not Detect) Ethyl Alcohol mg/dL Influenza Type A (PCR) NEGATIVE (Negative) Influenza Type B (PCR) NEGATIVE (Negative) RSV RNA Qual (PCR) NEGATIVE (Negative) SARS-CoV-2 RNA (RT-PCR) NEGATIVE (Negative) 09/01/22 Range/Units 12:03 WBC (4.8-10.8) X10*3/uL RBC (4.60-5.80) X10*6/uL Hgb (14.0-18.0) g/dl Hct (42.0-52.0) % MCV (80.0-98.0) fL MCH (27.0-33.0) pg MCHC (31.0-36.0) g/dl RDW (11.0-16.0) % Plt Count (160-400) X10*3/uL MPV (9.4-12.4) fL Immature Gran % (Auto) (0.0-0.4) % Neut % (Auto) (45-73) % Lymph % (Auto) (20-40) % [place] % (Auto) (2-11) % Eos % (Auto) (0-4) % Baso % (Auto) (0-2) % Lymph # (Auto) (1.2-4.9) X10*3/uL [place] # (Auto) (0.1-1.2) X10*3/uL Eos # (Auto) (0.0-0.4) X10*3/uL Baso # (Auto) (0.0-0.2) X10*3/uL Abs Immat Gran (auto) (0.00-0.03) X10*3/uL Absolute Neuts (auto) (2.0-8.3) x10*3/uL Absolute Nucleated RBC (0.0-0.012) X10*3/uL Nucleated RBC % (auto) (0.0-0.2) /100WBC PT (10.0-13.1) SEC INR (0.9-1.1) Sodium (135-145) mmol/L Potassium (3.3-5.1) mmol/L Chloride (96-108) mmol/L Carbon Dioxide (22-29) mmol/L Anion Gap (12-20) BUN (9-16) mg/dL Creatinine (0.5-1.4) mg/dL Estim Creat Clear Calc Estimated GFR Random Glucose (60-115) mg/dL Calcium (8.4-10.2) mg/dL Magnesium (1.6-2.6) mg/dL Total Bilirubin (0.0-1.0) mg/dL AST (5-37) U/L ALT (0-40) U/L Alkaline Phosphatase (39-117) U/L Troponin I High Sens (<3.5-35.0) ng/L Total Protein (6.5-8.0) g/dL Albumin (3.5-5.0) g/dL Urine Color Urine Appearance Urine pH (5.0-9.0) Ur Specific [place] (1.005-1.025) Urine Protein (Neg-Trace) mg/dL Urine Glucose (UA) (Negative) mg/dL Urine Ketones (Negative) mg/dL Urine Blood (Negative) Urine Nitrite (Negative) Ur Leukocyte Esterase (Negative) Urine RBC (0-2) /HPF Urine WBC (0-5) /HPF Ur Squamous Epith Cells (0-2) /HPF Urine Bacteria (None Seen) Hyaline Casts (0-2) /LPF Urine Opiates Screen Not Detected (Not Detect) Urine Fentanyl Screen Not Detected (Not Detect) Ur Barbiturates Screen Not Detected (Not Detect) Ur Phencyclidine Scrn Not Detected (Not Detect) Ur Amphetamines Screen Not Detected (Not Detect) U Benzodiazepines Scrn Not Detected (Not Detect) Urine Cocaine Screen Not Detected (Not Detect) U Marijuana (THC) Screen Not Detected (Not Detect) Ethyl Alcohol mg/dL Influenza Type A (PCR) (Negative) Influenza Type B (PCR) (Negative) RSV RNA Qual (PCR) (Negative) SARS-CoV-2 RNA (RT-PCR) (Negative) <GILBERT Trujillo - Last Filed: 09/01/22 11:54> Lab Results 09/01/22 09/01/22 09/01/22 Range/Units 12:03 12:03 12:03 WBC 7.5 (4.8-10.8) X10*3/uL RBC 4.21 L (4.60-5.80) X10*6/uL Hgb 14.4 (14.0-18.0) g/dl Hct 42.0 (42.0-52.0) % MCV 99.8 H (80.0-98.0) fL MCH 34.2 H (27.0-33.0) pg MCHC 34.3 (31.0-36.0) g/dl RDW 13.2 (11.0-16.0) % Plt Count 313 D (160-400) X10*3/uL MPV 10.2 (9.4-12.4) fL Immature Gran % (Auto) 0.4 (0.0-0.4) % Neut % (Auto) 76.9 H (45-73) % Lymph % (Auto) 13.5 L (20-40) % [place] % (Auto) 8.4 (2-11) % Eos % (Auto) 0.1 (0-4) % Baso % (Auto) 0.7 (0-2) % Lymph # (Auto) 1.0 L (1.2-4.9) X10*3/uL [place] # (Auto) 0.6 (0.1-1.2) X10*3/uL Eos # (Auto) 0.0 (0.0-0.4) X10*3/uL Baso # (Auto) 0.1 (0.0-0.2) X10*3/uL Abs Immat Gran (auto) 0.03 (0.00-0.03) X10*3/uL Absolute Neuts (auto) 5.8 (2.0-8.3) x10*3/uL Absolute Nucleated RBC 0.000 (0.0-0.012) X10*3/uL Nucleated RBC % (auto) 0.0 (0.0-0.2) /100WBC PT 10.7 (10.0-13.1) SEC INR 0.9 (0.9-1.1) Sodium 136 (135-145) mmol/L Potassium 4.3 (3.3-5.1) mmol/L Chloride 103 (96-108) mmol/L Carbon Dioxide 22 (22-29) mmol/L Anion Gap 15 (12-20) BUN 11 (9-16) mg/dL Creatinine 0.81 (0.5-1.4) mg/dL Estim Creat Clear Calc 60.2 Estimated GFR > 60 Random Glucose 100 (60-115) mg/dL Calcium 9.4 (8.4-10.2) mg/dL Magnesium 2.1 (1.6-2.6) mg/dL Total Bilirubin 2.0 H (0.0-1.0) mg/dL AST 18 (5-37) U/L ALT 13 (0-40) U/L Alkaline Phosphatase 51 (39-117) U/L Troponin I High Sens (<3.5-35.0) ng/L Total Protein 7.1 (6.5-8.0) g/dL Albumin 4.4 (3.5-5.0) g/dL Urine Color Urine Appearance Urine pH (5.0-9.0) Ur Specific [place] (1.005-1.025) Urine Protein (Neg-Trace) mg/dL Urine Glucose (UA) (Negative) mg/dL Urine Ketones (Negative) mg/dL Urine Blood (Negative) Urine Nitrite (Negative) Ur Leukocyte Esterase (Negative) Urine RBC (0-2) /HPF Urine WBC (0-5) /HPF Ur Squamous Epith Cells (0-2) /HPF Urine Bacteria (None Seen) Hyaline Casts (0-2) /LPF Urine Opiates Screen (Not Detect) Urine Fentanyl Screen (Not Detect) Ur Barbiturates Screen (Not Detect) Ur Phencyclidine Scrn (Not Detect) Ur Amphetamines Screen (Not Detect) U Benzodiazepines Scrn (Not Detect) Urine Cocaine Screen (Not Detect) U Marijuana (THC) Screen (Not Detect) Ethyl Alcohol < 10 mg/dL Influenza Type A (PCR) (Negative) Influenza Type B (PCR) (Negative) RSV RNA Qual (PCR) (Negative) SARS-CoV-2 RNA (RT-PCR) (Negative) 09/01/22 09/01/22 09/01/22 Range/Units 12:03 12:03 12:03 WBC (4.8-10.8) X10*3/uL RBC (4.60-5.80) X10*6/uL Hgb (14.0-18.0) g/dl Hct (42.0-52.0) % MCV (80.0-98.0) fL MCH (27.0-33.0) pg MCHC (31.0-36.0) g/dl RDW (11.0-16.0) % Plt Count (160-400) X10*3/uL MPV (9.4-12.4) fL Immature Gran % (Auto) (0.0-0.4) % Neut % (Auto) (45-73) % Lymph % (Auto) (20-40) % [place] % (Auto) (2-11) % Eos % (Auto) (0-4) % Baso % (Auto) (0-2) % Lymph # (Auto) (1.2-4.9) X10*3/uL [place] # (Auto) (0.1-1.2) X10*3/uL Eos # (Auto) (0.0-0.4) X10*3/uL Baso # (Auto) (0.0-0.2) X10*3/uL Abs Immat Gran (auto) (0.00-0.03) X10*3/uL Absolute Neuts (auto) (2.0-8.3) x10*3/uL Absolute Nucleated RBC (0.0-0.012) X10*3/uL Nucleated RBC % (auto) (0.0-0.2) /100WBC PT (10.0-13.1) SEC INR (0.9-1.1) Sodium (135-145) mmol/L Potassium (3.3-5.1) mmol/L Chloride (96-108) mmol/L Carbon Dioxide (22-29) mmol/L Anion Gap (12-20) BUN (9-16) mg/dL Creatinine (0.5-1.4) mg/dL Estim Creat Clear Calc Estimated GFR Random Glucose (60-115) mg/dL Calcium (8.4-10.2) mg/dL Magnesium (1.6-2.6) mg/dL Total Bilirubin (0.0-1.0) mg/dL AST (5-37) U/L ALT (0-40) U/L Alkaline Phosphatase (39-117) U/L Troponin I High Sens < 3.5 (<3.5-35.0) ng/L Total Protein (6.5-8.0) g/dL Albumin (3.5-5.0) g/dL Urine Color Yellow Urine Appearance Clear Urine pH 6.5 (5.0-9.0) Ur Specific [place] <= 1.005 (1.005-1.025) Urine Protein Negative (Neg-Trace) mg/dL Urine Glucose (UA) Negative (Negative) mg/dL Urine Ketones Negative (Negative) mg/dL Urine Blood Trace H (Negative) Urine Nitrite Negative (Negative) Ur Leukocyte Esterase Negative (Negative) Urine RBC 0-2 (0-2) /HPF Urine WBC 0-5 (0-5) /HPF Ur Squamous Epith Cells 0-2 (0-2) /HPF Urine Bacteria None Seen (None Seen) Hyaline Casts 0-2 (0-2) /LPF Urine Opiates Screen (Not Detect) Urine Fentanyl Screen (Not Detect) Ur Barbiturates Screen (Not Detect) Ur Phencyclidine Scrn (Not Detect) Ur Amphetamines Screen (Not Detect) U Benzodiazepines Scrn (Not Detect) Urine Cocaine Screen (Not Detect) U Marijuana (THC) Screen (Not Detect) Ethyl Alcohol mg/dL Influenza Type A (PCR) NEGATIVE (Negative) Influenza Type B (PCR) NEGATIVE (Negative) RSV RNA Qual (PCR) NEGATIVE (Negative) SARS-CoV-2 RNA (RT-PCR) NEGATIVE (Negative) 09/01/22 Range/Units 12:03 WBC (4.8-10.8) X10*3/uL RBC (4.60-5.80) X10*6/uL Hgb (14.0-18.0) g/dl Hct (42.0-52.0) % MCV (80.0-98.0) fL MCH (27.0-33.0) pg MCHC (31.0-36.0) g/dl RDW (11.0-16.0) % Plt Count (160-400) X10*3/uL MPV (9.4-12.4) fL Immature Gran % (Auto) (0.0-0.4) % Neut % (Auto) (45-73) % Lymph % (Auto) (20-40) % [place] % (Auto) (2-11) % Eos % (Auto) (0-4) % Baso % (Auto) (0-2) % Lymph # (Auto) (1.2-4.9) X10*3/uL [place] # (Auto) (0.1-1.2) X10*3/uL Eos # (Auto) (0.0-0.4) X10*3/uL Baso # (Auto) (0.0-0.2) X10*3/uL Abs Immat Gran (auto) (0.00-0.03) X10*3/uL Absolute Neuts (auto) (2.0-8.3) x10*3/uL Absolute Nucleated RBC (0.0-0.012) X10*3/uL Nucleated RBC % (auto) (0.0-0.2) /100WBC PT (10.0-13.1) SEC INR (0.9-1.1) Sodium (135-145) mmol/L Potassium (3.3-5.1) mmol/L Chloride (96-108) mmol/L Carbon Dioxide (22-29) mmol/L Anion Gap (12-20) BUN (9-16) mg/dL Creatinine (0.5-1.4) mg/dL Estim Creat Clear Calc Estimated GFR Random Glucose (60-115) mg/dL Calcium (8.4-10.2) mg/dL Magnesium (1.6-2.6) mg/dL Total Bilirubin (0.0-1.0) mg/dL AST (5-37) U/L ALT (0-40) U/L Alkaline Phosphatase (39-117) U/L Troponin I High Sens (<3.5-35.0) ng/L Total Protein (6.5-8.0) g/dL Albumin (3.5-5.0) g/dL Urine Color Urine Appearance Urine pH (5.0-9.0) Ur Specific [place] (1.005-1.025) Urine Protein (Neg-Trace) mg/dL Urine Glucose (UA) (Negative) mg/dL Urine Ketones (Negative) mg/dL Urine Blood (Negative) Urine Nitrite (Negative) Ur Leukocyte Esterase (Negative) Urine RBC (0-2) /HPF Urine WBC (0-5) /HPF Ur Squamous Epith Cells (0-2) /HPF Urine Bacteria (None Seen) Hyaline Casts (0-2) /LPF Urine Opiates Screen Not Detected (Not Detect) Urine Fentanyl Screen Not Detected (Not Detect) Ur Barbiturates Screen Not Detected (Not Detect) Ur Phencyclidine Scrn Not Detected (Not Detect) Ur Amphetamines Screen Not Detected (Not Detect) U Benzodiazepines Scrn Not Detected (Not Detect) Urine Cocaine Screen Not Detected (Not Detect) U Marijuana (THC) Screen Not Detected (Not Detect) Ethyl Alcohol mg/dL Influenza Type A (PCR) (Negative) Influenza Type B (PCR) (Negative) RSV RNA Qual (PCR) (Negative) SARS-CoV-2 RNA (RT-PCR) (Negative) <Kennedy Farias - Last Filed: 09/01/22 17:16> Independent Interpretation I performed an independent interpretation of an: EKG and Plain X-Ray <Kennedy Codyy - Last Filed: 09/01/22 17:16> Radiology Impression Discussion of test interpretation with radiology: I have reviewed the radiologist's reading. <Kennedy Dinora - Last Filed: 09/01/22 17:16> Radiologist Impression: Unremarkable chest x-ray without acute pathology. CT scan of brain without acute traumatic injury <Kennedy Farias - Last Filed: 09/01/22 17:16> Independent Historian Clinical information obtained from an independent historian. History obtained from or confirmed by: Spouse <Kennedy Farias - Last Filed: 09/01/22 17:16> External Record Review External record reviewed: Inpatient record and Outpatient record <Kennedy Farias - Last Filed: 08/16 02/04 17:16> Chronic Conditions Patient?s care impacted by: Hypertension and Cancer (History of cecal cancer, however his anemia is actually better than baseline today.) <Kennedy Farias - Last Filed: 09/01/22 17:16> Discharge Plan Discharge Clinical Impression: Anxiety, Lightheadedness <GILBERT Trujillo - Last Filed: 09/01/22 11:54> Patient Disposition: Home, Self-Care <GILBERT Trujillo - Last Filed: 09/01/22 11:54> Instructions: Anxiety (ED) <GILBERT Trujillo - Last Filed: 09/01/22 11:54> Additional Instructions: Take all the medications as prescribed. Follow-up with your supervisor paint as planned and Holter monitor next week as planned. Return for new or worsening symptoms, especially chest pain, heart palpitations or shortness of breath <GILBERT Trujillo - Last Filed: 09/01/22 11:54> Prescriptions: No Action tamsulosin [Flomax] 0.4 mg capsule 0.4 mg PO BEDTIME Qty: 90 2RF ascorbic acid (vitamin C) 250 mg tablet 250 mg PO DAILY 90 Days Qty: 90 3RF amlodipine [Norvasc] 5 mg tablet 5 mg PO DAILY 90 Days Qty: 90 0RF cyanocobalamin (vitamin B-12) 1,000 mcg capsule 1,000 mcg PO DAILY 90 Days Qty: 90 1RF atorvastatin [Lipitor] 10 mg tablet 10 mg PO DAILY Qty: 90 1RF finasteride [Proscar] 5 mg tablet 5 mg PO DAILY Qty: 90 0RF cholecalciferol (vitamin D3) 50 mcg (2,000 unit) capsule 50 mcg PO DAILY 90 Days Qty: 90 3RF lorazepam 0.5 mg tablet 0.5 mg PO BID MDD 1 mg PRN (Reason: sleep) Qty: 30 0RF docusate sodium [Colace] 100 mg capsule 100 mg PO BID PRN (Reason: constipation) Qty: 30 0RF ferrous sulfate [Iron (ferrous sulfate)] 325 mg (65 mg iron) tablet 325 mg PO DAILY omeprazole 20 mg capsule,delayed release(DR/EC) 20 mg PO DAILY <GILBERT Trujillo - Last Filed: 09/01/22 11:54>
[2022-09-01 12:15] LABS: MANUAL DIFF FLAG NO
[2022-09-01 12:16] LABS: Basophils Absolute Auto 0.1 X10*3/uL (0.0-0.2); Basophils Percent Auto 0.7 % (0-2); Eosinophils Percent Auto 0.1 % (0-4); Hemoglobin 14.4 g/dl (14.0-18.0); Imm Gran Abs Auto 0.03 X10*3/uL (0.00-0.03); Imm Gran Pct Auto 0.4 % (0.0-0.4); Lymphocytes Percent Auto 13.5 % (20-40); Mean Corpuscular HGB Conc 34.3 g/dl (31.0-36.0); Mean Corpuscular Hemoglobin 34.2 pg (27.0-33.0); Mean Corpuscular Volume 99.8 fL (80.0-98.0); Mean Platelet Volume 10.2 fL (9.4-12.4); Monocytes Absolute Auto 0.6 X10*3/uL (0.1-1.2); Monocytes Percent Auto 8.4 % (2-11); Neutrophils Absolute Auto 5.8 x10*3/uL (2.0-8.3); Neutrophils Percent Auto 76.9 % (45-73); Platelet Count 313 X10*3/uL (160-400); Red Blood Count 4.21 X10*6/uL (4.60-5.80); Red Cell Distribution Width 13.2 % (11.0-16.0); White Blood Count 7.5 X10*3/uL (4.8-10.8)
[2022-09-01 12:21] LABS: INTERNATIONAL NORM RATIO 0.9 (0.9-1.1); Prothrombin Time 10.7 SEC (10.0-13.1)
[2022-09-01 12:27] LABS: Appearance Urine Clear; Color Urine Yellow; Glucose Urine UA Negative (Negative); Leukocyte Esterase Urine Negative (Negative); Nitrite Urine Negative (Negative); PH 6.5 (5.0-9.0); Specific Gravity - Urine <= 1.005 (1.005-1.025); UMIC TRIGGER UACC YES; Urine Blood Trace (Negative); Urine Ketones Negative (Negative); Urine Protein Negative (Neg-Trace)
[2022-09-01 12:32] LABS: Bacteria Urine None Seen (None Seen); Hyaline Casts Urine 0-2 /LPF (0-2); RBC Urine 0-2 /HPF (0-2); Squamous Epithelial Cell Urine 0-2 /HPF (0-2); WBC Urine 0-5 /HPF (0-5)
[2022-09-01 12:37] LABS: Amphetamine Screen Urine Not Detected (Not Detect); Barbiturates, Urine Not Detected (Not Detect); Benzodiazepines Screen Urine Not Detected (Not Detect); Cannabinoid Screen Urine Not Detected (Not Detect); Cocaine Screen Urine Not Detected (Not Detect); Fentanyl, urine Not Detected (Not Detect); Opiate Screen Urine Not Detected (Not Detect); Phencyclidine Screen Urine Not Detected (Not Detect)
[2022-09-01 12:42] LABS: Alanine Aminotransferase 13 U/L (0-40); Albumin Level 4.4 g/dL (3.5-5.0); Alkaline Phosphatase 51 U/L (39-117); Anion Gap 15 (12-20); Aspartate Amino Transferase 18 U/L (5-37); Blood Urea Nitrogen 11 mg/dL (9-16); Calcium 9.4 mg/dL (8.4-10.2); Carbon Dioxide 22 mmol/L (22-29); Chloride 103 mmol/L (96-108); Creatinine Clr Calc Pharmacy 60.2; Estimated Glomerular Filt Rate > 60; Ethanol < 10 mg/dL; Glucose Random 100 mg/dL (60-115); Magnesium 2.1 mg/dL (1.6-2.6); Potassium 4.3 mmol/L (3.3-5.1); Sodium 136 mmol/L (135-145); Total Protein 7.1 g/dL (6.5-8.0); Troponin-I High Sensitivity < 3.5 ng/L (<3.5-35.0)
[2022-09-01 13:03] LABS: Influenza A PCR NEGATIVE (Negative); Influenza B PCR NEGATIVE (Negative); Resp Syncy Virus RNA Qual PCR NEGATIVE (Negative); SARS COV2 PCR INHOUSE NEGATIVE (Negative)
--- NOTE | 2022-09-01 16:47 | ECG_ITS ---
Test Reason : REPEAT Blood Pressure : / mmHG Vent. Rate : 093 BPM Atrial Rate : 093 BPM P-R Int : 208 ms QRS Dur : 076 ms QT Int : 358 ms P-R-T Axes : 058 032 038 degrees QTc Int : 445 ms Normal sinus rhythm Normal ECG When compared with ECG of 01-SEP-2022 11:56, T wave inversion no longer evident in Inferior leads Referred By: Kennedy Farias Electronically Signed By:Tariq Emerson
== END 2022-09-01 17:21 | disposition home or self-care (01) ==
PROVIDERS: Physician Assistant Medical; Emergency Provider Emergency Medicine; PCP Physician Assistant
DX: F41.9 Anxiety disorder, unspecified (principal); R42 Dizziness and giddiness; Z20.822 Contact with and (suspected) exposure to COVID-19; Z20.828 Contact with and (suspected) exposure to other viral communicable diseases; I10 Essential (primary) hypertension; E78.5 Hyperlipidemia, unspecified; D53.9 Nutritional anemia, unspecified; C18.0 Malignant neoplasm of cecum; Z79.02 Long term (current) use of antithrombotics/antiplatelets; Z79.899 Other long term (current) drug therapy
CPT/HCPCS: 0241U; 70450; 71046; 80053; 80307; 81001; 82077; 83735; 84484; 85025; 85610; 93005; 99284

== ENCOUNTER → 2022-09-06 11:02 | Outpatient (REF) | payer MEDICARE, SELFPAY ==
--- NOTE | 2022-09-06 11:07 | HM_ITS ---
* Total monitoring time about 4 days and 11 hours. * Underlying rhythm is sinus. Average ventricular rate 88/Min. Range 61 to 140/Min. About 21% the time, rate > 100/Min. * Rare PACs and PVCs with minimal burden. * No significant pauses or AV blocks. * No patient markers or events in diary. MTDD
== END ==
LOC: HO.CARD 11:02
PROVIDERS: PCP Physician Assistant; Visit Provider Nurse Practitioner Family
DX: R55 Syncope and collapse (principal)
CPT/HCPCS: 93242

== ENCOUNTER 2022-09-26 11:44 | Emergency (ER) | payer MEDICARE, SELFPAY ==
--- NOTE | ~2022-09-26 | XR_ITS ---
EXAMINATION: XR CHEST CLINICAL INFORMATION: Lightheaded COMPARISON: 09/01/2022 TECHNIQUE: Frontal view of the chest was obtained. FINDINGS: Cardiac leads overlie the chest. The lungs are well expanded. There is no focal consolidation, edema, or effusion. No pneumothorax. The cardiomediastinal silhouette is within normal limits of size with a calcified aorta. No acute osseous abnormality. XR/XR chest 1V IMPRESSION: No acute pulmonary disease.
[2022-09-26 11:51] VITALS: BP 146/77; PULSE 93; RESP 14; TEMP 36.8; O2SAT 98; BMI 19.3
--- NOTE | 2022-09-26 11:56 | ECG_ITS ---
Test Reason : DIZZINESS Blood Pressure : / mmHG Vent. Rate : 084 BPM Atrial Rate : 084 BPM P-R Int : 188 ms QRS Dur : 074 ms QT Int : 362 ms P-R-T Axes : 045 025 046 degrees QTc Int : 427 ms Normal sinus rhythm Normal ECG When compared with ECG of 01-SEP-2022 16:54, No significant change was found Referred By: Irish Nunez Electronically Signed By:Tariq Emerson
--- NOTE | 2022-09-26 11:57 | ED_ITS ---
HPI - General Adult General Chief complaint: General Medical Stated complaint: INTERMITTENT DIZZINESS X 1 MONTH Time Seen by Provider: 09/26/22 11:51 Source: patient and EMS Mode of arrival: EMS Limitations: no limitations History of Present Illness HPI narrative: 81-year-old male came in for evaluation of dizziness and lightheadedness. Patient lives home with his admit to drinking alcohol every day lately he has been drinking less, been given intermittent periods of lightheadedness and feeling dizzy. Patient had a multiple ED evaluation for similar symptoms, patient also had a prior hospitalization with workup for syncope. Related Data Home Medications Medication Instructions Recorded Confirmed omeprazole 20 mg capsule,delayed 20 mg PO DAILY 09/07/21 09/18/22 release ferrous sulfate 325 mg (65 mg 325 mg PO DAILY 10/19/21 09/18/22 iron) tablet (Iron (ferrous sulfate)) Previous Rx's Medication Instructions Recorded docusate sodium 100 mg capsule 100 mg PO BID PRN constipation #30 07/01/21 (Colace) caps tamsulosin 0.4 mg capsule (Flomax) 0.4 mg PO BEDTIME #90 caps 04/25/22 ascorbic acid (vitamin C) 250 mg 250 mg PO DAILY 90 days #90 tabs 05/29/22 tablet atorvastatin 10 mg tablet (Lipitor) 10 mg PO DAILY #90 tabs 07/03/22 cholecalciferol (vitamin D3) 50 50 mcg PO DAILY 90 days #90 caps 07/24/22 mcg (2,000 unit) capsule lorazepam 0.5 mg tablet 0.5 mg PO BID PRN sleep #30 tabs 08/03/22 finasteride 5 mg tablet (Proscar) 5 mg PO DAILY #90 tabs 09/05/22 amlodipine 5 mg tablet (Norvasc) 5 mg PO DAILY htn 90 days #90 tabs 09/20/22 cyanocobalamin (vitamin B-12) 1,000 mcg PO DAILY 90 days #90 caps 09/20/22 1,000 mcg capsule Allergies Allergy/AdvReac Type Severity Reaction Status Date / Time lisinopril Allergy Severe lip Verified 08/18/22 09:31 swelling hydrochlorothiazide AdvReac Severe dizziness/ Verified 08/18/22 09:31 hyponatremia Review of Systems Review of Systems: All other systems are reviewed and are negative Constitutional: Reports as per HPI and Reports no additional constitutional complaints Eyes: Reports as per HPI and Reports no additional eye complaints Reports system reviewed and no additional complaints, except as documented Cardiovascular: Reports as per HPI and Reports no additional cardiovascular complaints Respiratory: Reports as per HPI and Reports no additional respiratory complaints Gastrointestinal: Reports as per HPI and Reports no additional gastrointestinal complaints Genitourinary: Reports no additional female genitourinary complaints Musculoskeletal: Reports no additional musculoskeletal complaints Skin/Breast: Reports system reviewed and no additional complaints, except as docu Psychiatric: Reports no additional psychiatric complaints Endocrine: Reports no additional endocrine complaints Hematologic/Lymphatic: Reports no additional hematologic/lymphatic complaints Allergic/Immunologic: Reports no additional allergic/immunologic complaints Reports system reviewed and no additional complaints, except as documented and Reports Abnormal speech present PMFSH Past Medical History Medical History Adenocarcinoma of cecum Anemia History of urinary frequency HTN (hypertension) Hyperlipidemia Surgical History H/O colonoscopy History of colon resection (~2020) History of esophagogastroduodenoscopy (EGD) History of left inguinal hernia repair (~02/2018) Hx of eye surgery Family History Family History Father No problems noted. Mother No problems noted. Brother Cardiovascular disease Diabetes Social History Social History Household Members: Significant Other Housing: House Are you a primary career development counselor to a significant other at home: No Do you presently have visiting nurse or other home services: No Alcohol intake: never Patient Tobacco Use Status: Never used Tobacco Smoked in Last 30 Days: No e-Cigarette/Vaping Use: Never Used Second Hand Smoke Exposure: No Use of substances other than those prescribed or required for medical reasons: No Advance Directives: Yes Advance Directives on File: Yes Advance Directives Date on File: 04/12/21 service: No Current occupational status: retired Cognitive needs: No Hearing needs: No Vision needs: Yes (glasses) Physical Exam ED Vital Signs: Vital Signs - 24 hr 09/26/22 11:51 09/26/22 14:29 Temperature 98.3 F Pulse Rate 93 90 Respiratory Rate 14 11 L Blood Pressure 146/77 H 146/75 H Pulse Oximetry 98 99 Oxygen Delivery Method Room Air Room Air BMI result Body Mass Index 19.3 Vital signs have been reviewed as appeared to be correct. Blood pressure normal. Heart rate normal. Respiration rate normal. Temperature normal. Oxygen saturation normal. Appearance: Alert. Oriented X3. No acute distress. Head: Normal external exam. Normocephalic. Atraumatic. No Herrera signs noted. No raccoon eyes noted Eyes: PERRLA. EOMI. Conjunctiva and sclera normal. Eyelids normal. ENT: TM's Normal. Pharynx normal. Uvula midline. Moist mucous membranes. No trismus noted. No drooling noted. No muffled voice noted. Neck: Normal inspection. Neck supple. FROM. No adenopathy. Thyroid Normal. No meningeal signs. No neck mass noted. CVS: Normal heart rate and rhythm. Heart sound normal. No murmurs noted. Pulses normal throughout. Respiratory: No respiratory distress. Painless inspiration. Breath sounds normal. No wheezes/rales/rhonchi noted. Chest nontender. No accessory muscle usage noted or decreased air movement noted. Abdomen: Soft and nontender. Bowel sounds normal in all 4 quadrants. No distention noted. No organomegaly noted. No visible injury noted. Back: No CVA tenderness. Full range of motion noted. Skin: Skin warm and dry. Normal skin color. Normal skin turgor. No rashes/lesions/lacerations noted. Extremities: No lower extremity edema. Extremities exhibit normal range of motion. Extremities nontender. Neuro: Oriented X 3. Cranial nerve exam: II-XII are grossly intact No motor deficit. No sensory deficit. Reflexes normal. Course Course Course Narrative: 81-year-old male came in for evaluation of having a near syncopal episode, no CP, no SOB, unremarkable finding on the labs and physical exam. Will discharge the patient with instruction to drink plenty of fluids and keep himself hydrated. Medical Decision Making Differential Diagnosis Differential Diagnoses: The differential diagnosis associated with the presentation includes (Alcohol intoxication (history of alcohol use), dehydration, electrolyte disturbance, severe anemia, ACS) Lab Data MDM Lab Attestation statement: I reviewed the patient's lab results. 09/26/22 13:34 09/26/22 13:34 Labs: Lab Results 0309/26/22 09/26/22 Range/Units 13:34 13:34 13:34 WBC 5.7 (4.8-10.8) X10*3/uL RBC 4.31 L (4.60-5.80) X10*6/uL Hgb 14.9 (14.0-18.0) g/dl Hct 42.8 (42.0-52.0) % MCV 99.3 H (80.0-98.0) fL MCH 34.6 H (27.0-33.0) pg MCHC 34.8 (31.0-36.0) g/dl RDW 13.9 (11.0-16.0) % Plt Count 275 (160-400) X10*3/uL MPV 10.2 (9.4-12.4) fL Immature Gran % (Auto) 0.3 (0.0-0.4) % Neut % (Auto) 78.0 H (45-73) % Lymph % (Auto) 13.2 L (20-40) % [place] % (Auto) 7.8 (2-11) % Eos % (Auto) 0.2 (0-4) % Baso % (Auto) 0.5 (0-2) % Lymph # (Auto) 0.8 L (1.2-4.9) X10*3/uL [place] # (Auto) 0.5 (0.1-1.2) X10*3/uL Eos # (Auto) 0.0 (0.0-0.4) X10*3/uL Baso # (Auto) 0.0 (0.0-0.2) X10*3/uL Abs Immat Gran (auto) 0.02 (0.00-0.03) X10*3/uL Absolute Neuts (auto) 4.5 (2.0-8.3) x10*3/uL Absolute Nucleated RBC 0.000 (0.0-0.012) X10*3/uL Nucleated RBC % (auto) 0.0 (0.0-0.2) /100WBC Sodium 139 (135-145) mmol/L Potassium 4.1 (3.3-5.1) mmol/L Chloride 101 (96-108) mmol/L Carbon Dioxide 27 (22-29) mmol/L Anion Gap 15 (12-20) BUN 12 (9-16) mg/dL Creatinine 0.83 (0.5-1.4) mg/dL Estim Creat Clear Calc 58.8 Estimated GFR > 60 Random Glucose 95 (60-115) mg/dL Calcium 9.2 (8.4-10.2) mg/dL Total Bilirubin 2.1 H (0.0-1.0) mg/dL Direct Bilirubin 0.5 (0.0-0.5) mg/dL AST 23 (5-37) U/L ALT 16 (0-40) U/L Alkaline Phosphatase 52 (39-117) U/L Troponin I High Sens < 3.5 (<3.5-35.0) ng/L B-Natriuretic Peptide (<100) pg/mL Total Protein 7.1 (6.5-8.0) g/dL Albumin 4.4 (3.5-5.0) g/dL Lipase 24 (8-78) U/L Urine Color Urine Appearance Urine pH (5.0-9.0) Ur Specific [place] (1.005-1.025) Urine Protein (Neg-Trace) mg/dL Urine Glucose (UA) (Negative) mg/dL Urine Ketones (Negative) mg/dL Urine Blood (Negative) Urine Nitrite (Negative) Ur Leukocyte Esterase (Negative) Ethyl Alcohol < 10 mg/dL Influenza Type A (PCR) (Negative) Influenza Type B (PCR) (Negative) RSV RNA Qual (PCR) (Negative) SARS-CoV-2 RNA (RT-PCR) (Negative) 09/26/22 09/26/22 09/26/22 Range/Units 13:34 13:34 13:35 WBC (4.8-10.8) X10*3/uL RBC (4.60-5.80) X10*6/uL Hgb (14.0-18.0) g/dl Hct (42.0-52.0) % MCV (80.0-98.0) fL MCH (27.0-33.0) pg MCHC (31.0-36.0) g/dl RDW (11.0-16.0) % Plt Count (160-400) X10*3/uL MPV (9.4-12.4) fL Immature Gran % (Auto) (0.0-0.4) % Neut % (Auto) (45-73) % Lymph % (Auto) (20-40) % [place] % (Auto) (2-11) % Eos % (Auto) (0-4) % Baso % (Auto) (0-2) % Lymph # (Auto) (1.2-4.9) X10*3/uL [place] # (Auto) (0.1-1.2) X10*3/uL Eos # (Auto) (0.0-0.4) X10*3/uL Baso # (Auto) (0.0-0.2) X10*3/uL Abs Immat Gran (auto) (0.00-0.03) X10*3/uL Absolute Neuts (auto) (2.0-8.3) x10*3/uL Absolute Nucleated RBC (0.0-0.012) X10*3/uL Nucleated RBC % (auto) (0.0-0.2) /100WBC Sodium (135-145) mmol/L Potassium (3.3-5.1) mmol/L Chloride (96-108) mmol/L Carbon Dioxide (22-29) mmol/L Anion Gap (12-20) BUN (9-16) mg/dL Creatinine (0.5-1.4) mg/dL Estim Creat Clear Calc Estimated GFR Random Glucose (60-115) mg/dL Calcium (8.4-10.2) mg/dL Total Bilirubin (0.0-1.0) mg/dL Direct Bilirubin (0.0-0.5) mg/dL AST (5-37) U/L ALT (0-40) U/L Alkaline Phosphatase (39-117) U/L Troponin I High Sens (<3.5-35.0) ng/L B-Natriuretic Peptide 26 (<100) pg/mL Total Protein (6.5-8.0) g/dL Albumin (3.5-5.0) g/dL Lipase (8-78) U/L Urine Color Yellow Urine Appearance Clear Urine pH 7.0 (5.0-9.0) Ur Specific [place] <= 1.005 (1.005-1.025) Urine Protein Negative (Neg-Trace) mg/dL Urine Glucose (UA) Negative (Negative) mg/dL Urine Ketones Trace (Negative) mg/dL Urine Blood Negative (Negative) Urine Nitrite Negative (Negative) Ur Leukocyte Esterase Negative (Negative) Ethyl Alcohol mg/dL Influenza Type A (PCR) NEGATIVE (Negative) Influenza Type B (PCR) NEGATIVE (Negative) RSV RNA Qual (PCR) NEGATIVE (Negative) SARS-CoV-2 RNA (RT-PCR) NEGATIVE (Negative) Independent Interpretation I performed an independent interpretation of an: EKG (Normal sinus rhythm at 84 beats per minutes, normal axis deviation, normal intervals, no ST-T changes, no EKG changes from 09/01/2022.) and Plain X-Ray (Chest: No acute pulmonary disease.) Radiology Impression Discussion of test interpretation with radiology: I have reviewed the radiologist's reading. Discharge Plan Discharge Clinical Impression: Dizziness Patient Disposition: Home, Self-Care Instructions: Dizziness (ED) Prescriptions: No Action tamsulosin [Flomax] 0.4 mg capsule 0.4 mg PO BEDTIME Qty: 90 2RF ascorbic acid (vitamin C) 250 mg tablet 250 mg PO DAILY 90 Days Qty: 90 3RF atorvastatin [Lipitor] 10 mg tablet 10 mg PO DAILY Qty: 90 1RF cholecalciferol (vitamin D3) 50 mcg (2,000 unit) capsule 50 mcg PO DAILY 90 Days Qty: 90 3RF finasteride [Proscar] 5 mg tablet 5 mg PO DAILY Qty: 90 1RF amlodipine [Norvasc] 5 mg tablet 5 mg PO DAILY 90 Days Qty: 90 0RF cyanocobalamin (vitamin B-12) 1,000 mcg capsule 1,000 mcg PO DAILY 90 Days Qty: 90 1RF lorazepam 0.5 mg tablet 0.5 mg PO BID MDD 1 mg PRN (Reason: sleep) Qty: 30 0RF docusate sodium [Colace] 100 mg capsule 100 mg PO BID PRN (Reason: constipation) Qty: 30 0RF ferrous sulfate [Iron (ferrous sulfate)] 325 mg (65 mg iron) tablet 325 mg PO DAILY omeprazole 20 mg capsule,delayed release(DR/EC) 20 mg PO DAILY Referrals: Rocael Reeves PA-C [Primary Care Provider] -
[2022-09-26 13:40] LABS: MANUAL DIFF FLAG NO
[2022-09-26 13:44] LABS: Basophils Percent Auto 0.5 % (0-2); Eosinophils Percent Auto 0.2 % (0-4); Hematocrit 42.8 % (42.0-52.0); Hemoglobin 14.9 g/dl (14.0-18.0); Imm Gran Abs Auto 0.02 X10*3/uL (0.00-0.03); Imm Gran Pct Auto 0.3 % (0.0-0.4); Lymphocytes Absolute Auto 0.8 X10*3/uL (1.2-4.9); Lymphocytes Percent Auto 13.2 % (20-40); Mean Corpuscular HGB Conc 34.8 g/dl (31.0-36.0); Mean Corpuscular Hemoglobin 34.6 pg (27.0-33.0); Mean Corpuscular Volume 99.3 fL (80.0-98.0); Mean Platelet Volume 10.2 fL (9.4-12.4); Monocytes Absolute Auto 0.5 X10*3/uL (0.1-1.2); Monocytes Percent Auto 7.8 % (2-11); Neutrophils Absolute Auto 4.5 x10*3/uL (2.0-8.3); Platelet Count 275 X10*3/uL (160-400); Red Blood Count 4.31 X10*6/uL (4.60-5.80); Red Cell Distribution Width 13.9 % (11.0-16.0); White Blood Count 5.7 X10*3/uL (4.8-10.8)
[2022-09-26 13:45] LABS: Appearance Urine Clear; Color Urine Yellow; Glucose Urine UA Negative (Negative); Leukocyte Esterase Urine Negative (Negative); Nitrite Urine Negative (Negative); Specific Gravity - Urine <= 1.005 (1.005-1.025); Urine Blood Negative (Negative); Urine Ketones Trace mg/dL (Negative); Urine Protein Negative (Neg-Trace)
[2022-09-26 14:06] LABS: Alanine Aminotransferase 16 U/L (0-40); Albumin Level 4.4 g/dL (3.5-5.0); Alkaline Phosphatase 52 U/L (39-117); Anion Gap 15 (12-20); Aspartate Amino Transferase 23 U/L (5-37); B Type Natriuretic Peptide 26 pg/mL (<100); Bilirubin Direct 0.5 mg/dL (0.0-0.5); Bilirubin Total 2.1 mg/dL (0.0-1.0); Blood Urea Nitrogen 12 mg/dL (9-16); Calcium 9.2 mg/dL (8.4-10.2); Carbon Dioxide 27 mmol/L (22-29); Chloride 101 mmol/L (96-108); Creatinine Clr Calc Pharmacy 58.8; Estimated Glomerular Filt Rate > 60; Ethanol < 10 mg/dL; Glucose Random 95 mg/dL (60-115); Lipase 24 U/L (8-78); Potassium 4.1 mmol/L (3.3-5.1); Sodium 139 mmol/L (135-145); Total Protein 7.1 g/dL (6.5-8.0)
[2022-09-26 14:07] LABS: Troponin-I High Sensitivity < 3.5 ng/L (<3.5-35.0)
[2022-09-26 14:21] LABS: Influenza A PCR NEGATIVE (Negative); Influenza B PCR NEGATIVE (Negative); Resp Syncy Virus RNA Qual PCR NEGATIVE (Negative); SARS COV2 PCR INHOUSE NEGATIVE (Negative)
[2022-09-26 14:29] VITALS: BP 146/75; PULSE 90; RESP 11; O2SAT 99
== END 2022-09-26 15:20 | disposition home or self-care (01) ==
PROVIDERS: Emergency Provider Emergency Medicine; PCP Physician Assistant
DX: R42 Dizziness and giddiness (principal); Z20.822 Contact with and (suspected) exposure to COVID-19; Z20.828 Contact with and (suspected) exposure to other viral communicable diseases; I10 Essential (primary) hypertension; E78.5 Hyperlipidemia, unspecified; Z79.02 Long term (current) use of antithrombotics/antiplatelets; Z79.899 Other long term (current) drug therapy
CPT/HCPCS: 0241U; 36415; 71045; 80048; 80076; 81003; 82077; 83690; 83880; 84484; 85025; 93005; 99283; 99285

== ENCOUNTER 2022-10-04 08:14 | Outpatient (REF) | payer MEDICARE, SELFPAY ==
--- NOTE | ~2022-10-04 | CT_ITS ---
EXAMINATION: CT ABDOMEN AND PELVIS WITH CONTRAST CLINICAL INFORMATION: Surveillance for colon cancer. COMPARISON: None available. TECHNIQUE: Multidetector volumetric images were obtained from the superior aspect of the liver through the pubic symphysis following administration 85 mL of Omnipaque 350 intravenous contrast. Sagittal and coronal reformatted images were obtained on the technologist's workstation. Oral contrast: No This CT examination was performed using dose optimization techniques as appropriate, variously including the following: *Automated exposure control *Adjustment of mA and/or kV according to patient size (this includes techniques or standardized protocols for targeted exams where dose is matched to indication/reason for exam; i.e. extremities or head) *Use of iterative reconstruction technique DLP: 219 mGy-cm FINDINGS: LUNG BASES: The lung bases are clear. Heart size is normal. LIVER, GALLBLADDER, AND BILIARY TREE: The liver is normal in size, shape, and attenuation. No focal hepatic lesion or biliary ductal dilatation is present. The gallbladder is unremarkable with no evidence of radiopaque gallstones, gallbladder wall thickening, or obvious pericholecystic inflammatory changes. PANCREAS: Unremarkable. SPLEEN: Unremarkable. ADRENAL GLANDS: Unremarkable. KIDNEYS AND URETERS: The kidneys are normal in size, shape, and attenuation. No hydronephrosis, hydroureter, or calculi seen. No perinephric stranding. There are bilateral renal cysts with the largest left peripelvic cyst measuring 3 cm. BLADDER: Unremarkable. GASTROINTESTINAL TRACT: There are scattered diverticula, oral contrast and stool in colon without distention. There is nonspecific minimal mural thickening of the sigmoid colon likely nondistention. No pericolic fat stranding seen. The small bowel loops are normal caliber. Appendix is not visualized. There is a small stump seen along the tip of the cecum likely from previous appendectomy. ABDOMINAL WALL: No significant hernia is appreciated. LYMPH NODES: Normal. VASCULAR: Unremarkable. PELVIC VISCERA: Unremarkable. OSSEOUS STRUCTURES: No aggressive lytic or sclerotic process seen. CT/CT abdomen pelvis w IV con IMPRESSION: 1. No acute intra-abdominal process seen. 2. Colonic diverticulosis without diverticulitis. There is nonspecific minimal mural thickening of the sigmoid colon likely from underdistention. Correlate with flexible sigmoidoscopy if the patient has pain in this region. 3. Bilateral renal cysts without radiopaque calculi or hydronephrosis. Fleischner guidelines were followed.
[2022-10-04] MEDS: iohexoL 350 MG/ML 100 ML INFUS..BTL IV (11:02)
== END 2022-10-04 08:15 | disposition home or self-care (01) ==
LOC: HO.CT 08:14
PROVIDERS: PCP Physician Assistant; Visit Provider Internal Medicine
DX: C18.0 Malignant neoplasm of cecum (principal)
CPT/HCPCS: 74177; Q9967

== ENCOUNTER 2022-12-05 06:42 | Outpatient (REF) | payer MEDICARE, SELFPAY ==
[2022-12-05 07:32] LABS: Hematocrit 42.1 % (42.0-52.0); Hemoglobin 14.8 g/dl (14.0-18.0); Mean Corpuscular HGB Conc 35.2 g/dl (31.0-36.0); Mean Corpuscular Hemoglobin 34.6 pg (27.0-33.0); Mean Corpuscular Volume 98.4 fL (80.0-98.0); Mean Platelet Volume 10.7 fL (9.4-12.4); Platelet Count 257 X10*3/uL (160-400); Red Blood Count 4.28 X10*6/uL (4.60-5.80); Red Cell Distribution Width 15.2 % (11.0-16.0); White Blood Count 4.3 X10*3/uL (4.8-10.8)
[2022-12-05 08:17] LABS: Prostate Specific Antigen Scr 1.47 ng/mL (<0.05-4.0)
[2022-12-05 08:19] LABS: Alanine Aminotransferase 23 U/L (0-40); Albumin Level 4.5 g/dL (3.5-5.0); Alkaline Phosphatase 50 U/L (39-117); Anion Gap 15 (12-20); Aspartate Amino Transferase 37 U/L (5-37); Bilirubin Total 1.7 mg/dL (0.0-1.0); Blood Urea Nitrogen 12 mg/dL (9-16); Calcium 9.7 mg/dL (8.4-10.2); Carbon Dioxide 26 mmol/L (22-29); Chloride 102 mmol/L (96-108); Cholesterol 227 mg/dL; Estimated Glomerular Filt Rate > 60; Glucose Fasting 79 mg/dL (60-99); HDL Cholesterol 127 mg/dL; Iron 170 mcg/dL (45-160); LDL Cholesterol Calculated 75 mg/dl; Percent Iron Saturation 56 % (15-50); Potassium 4.4 mmol/L (3.3-5.1); Sodium 139 mmol/L (135-145); Total Iron Binding Capacity 306 mcg/dL (228-428); Total Protein 7.4 g/dL (6.5-8.0); Triglycerides 126 mg/dL; Unsaturated Iron Binding 136 ug/dL
[2022-12-05 10:04] LABS: Creatinine Urine 92.77 mg/dL; Microalbum/Creatinine Ratio Ur 20.4 ug/mg cr
== END 2022-12-05 06:43 | disposition home or self-care (01) ==
LOC: HO.LAB 06:42
PROVIDERS: PCP Physician Assistant; Visit Provider Physician Assistant
DX: Z12.5 Encounter for screening for malignant neoplasm of prostate (principal); M79.10 Myalgia, unspecified site; E78.2 Mixed hyperlipidemia; I10 Essential (primary) hypertension; D50.0 Iron deficiency anemia secondary to blood loss (chronic)
CPT/HCPCS: 36415; 80053; 80061; 82043; 82550; 83540; 84153; 85027

== ENCOUNTER 2023-02-16 14:42 | Outpatient (REF) | payer MEDICARE, SELFPAY ==
[2023-02-16 16:22] LABS: Hematocrit 40.9 % (42.0-52.0); Hemoglobin 14.4 g/dl (14.0-18.0); Mean Corpuscular HGB Conc 35.2 g/dl (31.0-36.0); Mean Corpuscular Hemoglobin 35.6 pg (27.0-33.0); Mean Corpuscular Volume 101.2 fL (80.0-98.0); Mean Platelet Volume 10.7 fL (9.4-12.4); Platelet Count 271 X10*3/uL (160-400); Red Blood Count 4.04 X10*6/uL (4.60-5.80); White Blood Count 6.8 X10*3/uL (4.8-10.8)
[2023-02-16 16:56] LABS: Creatinine Urine 102.05 mg/dL; Microalbum/Creatinine Ratio Ur 7.8 ug/mg cr
[2023-02-16 16:59] LABS: Iron 135 mcg/dL (45-160); Percent Iron Saturation 43 % (15-50); Total Iron Binding Capacity 313 mcg/dL (228-428); Unsaturated Iron Binding 178 ug/dL
[2023-02-16 17:02] LABS: Prostate Specific Antigen Scr 0.63 ng/mL (<0.05-4.0); Vitamin D 25-OH Total 70.2 ng/mL (>30)
== END 2023-02-16 14:43 | disposition home or self-care (01) ==
LOC: HO.LAB 14:42
PROVIDERS: PCP Physician Assistant; Visit Provider Physician Assistant
DX: Z12.5 Encounter for screening for malignant neoplasm of prostate (principal); D50.0 Iron deficiency anemia secondary to blood loss (chronic); I10 Essential (primary) hypertension; R79.89 Other specified abnormal findings of blood chemistry; E55.9 Vitamin D deficiency, unspecified
CPT/HCPCS: 36415; 82043; 82306; 83540; 84153; 85027

== ENCOUNTER 2023-02-17 06:51 | Outpatient (REF) | payer MEDICARE, SELFPAY ==
[2023-02-17 08:55] LABS: Alanine Aminotransferase 23 U/L (0-40); Albumin Level 4.5 g/dL (3.5-5.0); Alkaline Phosphatase 58 U/L (39-117); Anion Gap 16 (12-20); Aspartate Amino Transferase 32 U/L (5-37); Bilirubin Total 1.1 mg/dL (0.0-1.0); Blood Urea Nitrogen 13 mg/dL (9-16); Calcium 9.6 mg/dL (8.4-10.2); Carbon Dioxide 24 mmol/L (22-29); Chloride 100 mmol/L (96-108); Cholesterol 214 mg/dL; Estimated Glomerular Filt Rate > 60; Glucose Fasting 88 mg/dL (60-99); HDL Cholesterol 108 mg/dL; LDL Cholesterol Calculated 85 mg/dl; Potassium 3.8 mmol/L (3.3-5.1); Sodium 136 mmol/L (135-145); Total Protein 7.6 g/dL (6.5-8.0); Triglycerides 109 mg/dL
[2023-02-17 09:20] LABS: Folate 8.2 ng/mL (> or = 4.0); Vitamin B12 990 pg/mL (200-900)
== END 2023-02-17 06:52 | disposition home or self-care (01) ==
LOC: HO.LAB 06:51
PROVIDERS: Nurse Practitioner Family; PCP Physician Assistant; Visit Provider Physician Assistant
DX: I10 Essential (primary) hypertension (principal); E78.2 Mixed hyperlipidemia
CPT/HCPCS: 36415; 80053; 80061; 82607; 82746

== ENCOUNTER 2023-02-27 10:19 | Outpatient (AMB) | payer MEDICARE, SELFPAY ==
[2023-02-27 10:21] VITALS: BP 128/66; PULSE 92; O2SAT 99; BMI 21.0
--- NOTE | 2023-02-27 10:21 | A.OFFPC_ITS ---
Vital Signs 02/27/23 10:21 Height 5 ft 5 in Weight 126 lb BMI 21.0 BP 128/66 Blood Pressure Location Lt brachial Position Sitting Pulse 92 Pulse Source Pulse Oximeter Pulse Oximetry (%) 99 Oxygen Delivery Method Room Air Intake Visit Reasons: low energy Allergies lisinopril Allergy (Severe, Verified 02/27/23 10:32) lip swelling hydrochlorothiazide Adverse Reaction (Severe, Verified 02/27/23 10:32) dizziness/ hyponatremia Medication List - Last Reconciled 02/27/23 by Rocael Reeves PA-C amlodipine (Norvasc) 5 mg PO DAILY 90 days ascorbic acid (vitamin C) 250 mg PO DAILY 90 days atorvastatin (Lipitor) 10 mg PO DAILY bacitracin 1 appl topical Q8H 15 days cholecalciferol (vitamin D3) 50 mcg PO DAILY 90 days cyanocobalamin (vitamin B-12) 1,000 mcg PO DAILY 90 days docusate sodium (Colace) 100 mg PO BID PRN finasteride (Proscar) 5 mg PO DAILY lorazepam 0.5 mg PO BID PRN 7 days MDD 1 mg magnesium oxide 400 mg PO DAILY 90 days omeprazole 20 mg PO DAILY simethicone (Gas-X Extra Strength) 125 mg PO BID-QID PRN 30 days tamsulosin (Flomax) 0.4 mg PO BEDTIME Tobacco use date assessed: 08/18/22 HPI low energy HPI Details Patient is a 82-year-old male here today for a follow-up visit.? Patient has a past medical history significant for hypertension, anemia, colon cancer with resection, BPH, macrocytic anemia. Concern--> he continues to complain of chronic fatigue over the last 3 weeks. Repeat labs will within normal limits with the exception his continue macrocytic anemia. Iron studies when. 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 He reports his fatigue has caused him to withdrawal from his usual daily activities. There are some concerns here for depression. Otherwise unclear etiology to patient's fatigue ?HTN :? Blood pressure today in office acceptable will continue his current dose amlodipine with goal blood pressure to be below 140/90 ... Anemia:? Continues his follow-up with Hematology, most recent hemoglobin at 14.? Has been stable, has been less week He has recently got CT of abdomen and pelvis which does show no acute intra abdominal pathology.? Does show some thickening at the sigmoid colon where he had his colectomy and? anastomosis. Laboratory Tests 08/09/22 09/01/22 09/26/22 07:33 12:03 13:34 RBC 4.02 L 4.21 L 4.31 L Hgb 14.0 14.9 Hct 40.3 L MCV 100.2 H Creatinine 09/26/22 12/05/22 02/16/23 13:34 06:51 14:57 RBC 4.28 L 4.04 L Hgb 14.4 Hct 40.9 L MCV 101.2 H Creatinine 0.83 PFS Medical History Adenocarcinoma of cecum Anemia History of urinary frequency HTN (hypertension) Hyperlipidemia Surgical History H/O colonoscopy History of colon resection (~2020) History of esophagogastroduodenoscopy (EGD) History of left inguinal hernia repair (~02/2018) Hx of eye surgery Family History Father No problems noted. Mother No problems noted. Brother Cardiovascular disease Diabetes Social History Household Members: Significant Other Housing: House Are you a primary healthcare economics manager to a significant other at home: No Do you presently have visiting nurse or other home services: No Alcohol intake: current Alcohol intake frequency: 0-2 drinks per day Alcohol type: wine Patient Tobacco Use Status: Never used Tobacco e-Cigarette/Vaping Use: Never Used Second Hand Smoke Exposure: No Advance Directives Date on File: 04/12/21 service: No Current occupational status: retired Cognitive needs: No Hearing needs: No Vision needs: Yes (glasses) Questionnaire PHQ-9 Over the last 2 weeks, how often have you been bothered by any of the following problems? 1. Little interest or pleasure in doing things: not at all 2. Feeling down, depressed, or hopeless: not at all 3. Trouble falling or staying asleep, or sleeping too much: several days 4. Feeling tired or having little energy: several days 5. Poor appetite or overeating: not at all 6. Feeling bad about yourself - or that you are a failure or have let yourself or your family down: not at all 7. Trouble concentrating on things, such as reading the newspaper or watching television: not at all 8. Moving or speaking so slowly that other people could have noticed. Or the opposite - being so fidgety or restless that you have been moving around a lot more than usual: not at all 9. Thoughts that you would be better off or of hurting yourself in some way: not at all Total score: 2 Depression Screening Interpretation: Negative 02533 - PHQ-9 Billing: Yes Source: Developed by Drs. Joseph Riggins, Cheryl Johnson, Uche Isabel and colleagues, with an educational aurelio from [employer]. Thrive Questionnaire Date Thrive assessed: 08/18/22 I am a: Patient What is your living situation today?: I have a steady place to live Within the past 12 months, did the food you bought not last and you didn't have the money to get more?: Never true Within the past 12 months, did you worry whether your food would run out before you got money to buy more?: Never true Currently or been in a relationship where the following occur: no concerns reported AUDIT C Alcohol Use Questionnaire (AUDIT-C) 1. How often do you have a drink containing alcohol?: 4 or more times a week 2. How many drinks containing alcohol do you have on a typical day when you are drinking?: 1 or 2 3. How often do you have six or more drinks on one occasion?: Never Total Score: 4 Score Reviewed/Action Taken: Yes KEN-7 AMB Questionnaire KEN-7 Date KEN - 7 assessed: 08/18/22 Feeling nervous, anxious, or on edge: 3 = Nearly every day Not being able to stop or control worryin = Not at all Worrying too much about different things: 0 = Not at all Trouble relaxin = Not at all Being so restless that it is hard to sit still: 1 = Several days Becoming easily annoyed or irritable: 0 = Not at all Feeling afraid as if something awful might happen: 0 = Not at all Total KEN-7 score (0-4 normal; 5-9 mild; 10-14 moderate; 15-21 severe): 4 Source: Developed by Drs. Joseph Riggins, Cheryl Johnson, Uche Isabel and colleagues, with an educational aurelio from [employer]. KEN-7 Assessment Billing KEN-7 Assessment Tool: KEN-7 Assessment 58326 Review of Systems Const Reports fatigue, Denies headache(s) and Reports weakness Eyes Denies loss of vision ENT Denies vertigo, Denies dizziness, Denies headache(s) and Denies sore throat Card Denies chest pain, Denies leg edema and Denies lightheadedness Resp Denies cough, Denies hemoptysis and Denies wheezing GI Denies abdominal pain, Denies melena, Denies constipation, Denies diarrhea and Denies vomiting Denies dysuria, Denies urinary frequency and Denies urinary urgency Musc Denies arthralgias, Denies joint swelling, Denies numbness and Denies tingling Neuro Denies Abnormal speech present, Denies behavioral changes, Denies vertigo, D enies dizziness, Denies headache(s), Denies loss of vision, Denies memory loss, Denies numbness, Denies tingling and Reports weakness Psych Denies anxiety, Denies behavioral changes, Denies depression, Denies memory loss and Denies panic attacks Endo Reports fatigue Alek/Lymph Denies easy bleeding and Denies easy bruising Aller/Immun Denies wheezing Physical exam (Primary Care) Vital Signs: Last Vital Signs Pulse 92 02/27/23 10:21 BP 128/66 02/27/23 10:21 Pulse Ox 99 02/27/23 10:21 Oxygen Delivery Method Room Air 02/27/23 10:21 BMI result Body Mass Index 21.0 Tobacco/Smoking Status: Tobacco use Status Tobacco use date assessed 08/18/22 02/27/23 10:28 Patient Tobacco Use Status Never used Tobacco 02/27/23 10:28 e-Cigarette/Vaping Use Never Used 02/27/23 10:28 PHQ-9: PHQ-9 Score PHQ-9: Total score 2 02/27/23 10:43 Depression Screening Interpretation: Negative Thrive Assessment: Date of Thrive Assessment Date Thrive assessed 08/18/22 02/27/23 10:28 Currently or been in a relationship where the following occur: no concerns reported Const General: healthy appearing, no acute distress, alert and awake Nutritional Appearance: well nourished Orientation/consciousness: oriented to person, oriented to place and oriented to time HENMT Ears: TM's normal bilaterally General nose exam: Normal nasal mucous membranes and turbinates present Eyes Conjunctivae: conjunctivae normal Sclerae: sclerae normal Pupils: Equal, round and reactive pupils present Neck Neck: Yes no lymphadenopathy and Yes no JVD Thyroid: Thyroid normal Carotids: no bruits Resp Effort & Inspection: normal respiratory effort and not tachypneic Auscultation: no crackles, no rales, no rhonchi and no wheezes Cardio Rate: regular rate Rhythm: regular rhythm Heart sounds: no murmurs and normal S1 and S2 GI Palpation (GI): Soft to palpation, nontender, no hepatomegaly and no splenomegaly Auscultation: normal bowel sounds Skin General skin exam: no rashes or lesions noted and dry skin Neuro General: oriented to person, oriented to place and oriented to time Cranial nerves: Yes Equal, round and reactive pupils present Speech: No Abnormal speech present Gait exam (Neuro): Normal gait present Motor exam (neuro): no tremor noted Extrem Right upper extremity: full ROM Left upper extremity: full ROM Right lower extremity: full ROM; no edema Left lower extremity: full ROM; no edema Psych Mental Status: mental status grossly normal Speech and movement: Normal speech and movement present Affect: normal affect Attitude: cooperative Thought process: Normal thought process present Assessment and Plan Assessment & Plan (1) Chronic fatigue: Code(s): R53.82 - Chronic fatigue, unspecified Plan: Unclear etiology to patient's worsening fatigue over the last 3 months. Will check further labs including TSH, HIV, Lyme testing. Iron studies, B12 folate levels are stable. Otherwise only abnormality as his chronic microcytic anemia. Advised to reduce his alcohol intake. Orders: Orders TSH reflex Free T4 Today R53.82 - Chronic fatigue, unspecified EBV DNA QL PCR Today R5.82 - Chronic fatigue, unspecified HIV Ab/Ag Today R5.82 - Chronic fatigue, unspecified, Z11.3 - Encounter for screening for infections with a predominantly sexual mode of transmission Lyme IgG/IgM w/reflex to WB Today R5.82 - Chronic fatigue, unspecified Coding Level of Care Code Est Pt Level 3 (74203) Diagnoses Chronic fatigue R582 Additional Codes KEN-7 Assessment Billing - KEN-7 Assessment Tool: KEN-7 Assessment 05341 ([id number])
== END 2023-02-27 11:07 | disposition home or self-care (01) ==
PROVIDERS: PCP Physician Assistant; Visit Provider Physician Assistant
DX: R53.82 Chronic fatigue, unspecified (principal)
CPT/HCPCS: 99213

== ENCOUNTER 2023-03-01 07:58 | Outpatient (REF) | payer MEDICARE, SELFPAY ==
[2023-03-01 09:52] LABS: HIV AB/AG Nonreactive (Nonreactive); HIV Num 1 0.06 S/CO (0.00-0.99)
[2023-03-01 10:05] LABS: TSH reflex Free T4 1.15 uIU/mL (0.32-4.0)
[2023-03-02 06:53] LABS: Lyme Abs Screen <0.90 index
[2023-03-05 18:13] LABS: EBV Source Whole Blood
[2023-03-09 10:34] LABS: EBV DNA PCR Detected
== END 2023-03-01 07:59 | disposition home or self-care (01) ==
LOC: HO.LAB 07:58
PROVIDERS: PCP Physician Assistant; Visit Provider Physician Assistant
DX: Z11.3 Encounter for screening for infections with a predominantly sexual mode of transmission (principal); Z11.4 Encounter for screening for human immunodeficiency virus [HIV]; R53.82 Chronic fatigue, unspecified
CPT/HCPCS: 36415; 84443; 86617; 86618; 87389; 87798

== ENCOUNTER 2023-03-08 12:20 | Emergency (ER) | payer MEDICARE, SELFPAY ==
[2023-03-08 12:35] VITALS: BP 160/70; PULSE 90; O2SAT 100
[2023-03-08 12:39] VITALS: BP 155/77; PULSE 92; RESP 18; TEMP 36.8; O2SAT 98; BMI 19.5
--- NOTE | 2023-03-08 12:43 | ED.ABDPAIN ---
HPI - Abdominal Pain General Chief Complaint: Abdominal Pain Stated Complaint: ABD PAIN/LLQ X'S WEEKS PER EMS Time Seen by Provider: 03/08/23 12:36 Source: patient, EMS and old records reviewed Mode of arrival: EMS Limitations: no limitations History of Present Illness HPI narrative: 82 yo male with history of HTN, anxiety, constipation, anemia, hx GI bleed, hx diverticulitis, hx cecal adenocarcinoma s/p resection by Dr. Saldaña in 2020 who presents to the ER for evaluation of lower abdominal burning sensation and discomfort where he had his tumor removed. He denies any N/V/D, fever, chills, urinary symptoms or rashes. He had a normal BM today, no blood. MD elicited complaint: abdominal pain Pertinent past history: other (cecal adenocarcinoma) Onset (ago): week(s) Pain Consistency: intermittent Severity: moderate Quality: burning Radiation: none Migration to: no migration Relieving factors: nothing Associated symptoms: denies other symptoms Related Data Home Medications Medication Instructions Recorded Confirmed omeprazole 20 mg capsule,delayed 20 mg PO DAILY 09/07/21 02/27/23 release Previous Rx's Medication Instructions Recorded docusate sodium 100 mg capsule 100 mg PO BID PRN constipation #30 07/01/21 (Colace) caps tamsulosin 0.4 mg capsule (Flomax) 0.4 mg PO BEDTIME #90 caps 04/25/22 ascorbic acid (vitamin C) 250 mg 250 mg PO DAILY 90 days #90 tabs 05/29/22 tablet cholecalciferol (vitamin D3) 50 50 mcg PO DAILY 90 days #90 caps 07/24/22 mcg (2,000 unit) capsule finasteride 5 mg tablet (Proscar) 5 mg PO DAILY #90 tabs 09/05/22 bacitracin 500 unit/gram topical 1 appl topical Q8H 15 days #14 12/04/22 ointment grams magnesium oxide 400 mg PO DAILY 90 days #90 tabs 12/04/22 simethicone 125 mg capsule (Gas-X 125 mg PO BID-QID PRN abdominal 12/04/22 Extra Strength) distention 30 days #120 caps amlodipine 5 mg tablet (Norvasc) 5 mg PO DAILY htn 90 days #90 tabs 12/19/22 cyanocobalamin (vitamin B-12) 1,000 mcg PO DAILY 90 days #90 caps 12/19/22 1,000 mcg capsule atorvastatin 10 mg tablet (Lipitor) 10 mg PO DAILY #90 tabs 12/30/22 lorazepam 0.5 mg tablet 0.5 mg PO BID PRN sleep 7 days #14 02/23/23 tabs Allergies Allergy/AdvReac Type Severity Reaction Status Date / Time lisinopril Allergy Severe lip Verified 03/08/23 12:37 swelling hydrochlorothiazide AdvReac Severe dizziness/ Verified 03/08/23 12:37 hyponatremia Review of Systems Review of Systems Constitutional: No Fever, No Chills ENT/Mouth: No sore throat, No Rhinorrhea, No Swallowing Difficulty Eyes: No Eye Pain, No Swelling, No Redness Cardiovascular: No Chest Pain, No SOB, No Orthopnea, No Edema Respiratory: No Cough, No Sputum, No Wheezing, No dyspnea Gastrointestinal: No Nausea, No Vomiting, No Diarrhea, + abdominal Pain, No Hematochezia, No Melena Genitourinary: No Dysuria, No Urinary Frequency, No Hematuria Musculoskeletal: No joint pain, No Myalgias Skin: No Skin Lesions, No rash Neuro: No Weakness, No Numbness, No Dizziness, No Headache Yes all other systems are reviewed and are negative [facility] Past Medical History Attestation statement: The following information was validated with the patient. Source: old records reviewed and nursing notes reviewed Medical History Adenocarcinoma of cecum Anemia History of urinary frequency HTN (hypertension) Hyperlipidemia Surgical History H/O colonoscopy History of colon resection (~2020) History of esophagogastroduodenoscopy (EGD) History of left inguinal hernia repair (~02/2018) Hx of eye surgery Family History Family History Father No problems noted. Mother No problems noted. Brother Cardiovascular disease Diabetes Social History Social History Household Members: Significant Other Housing: House Are you a primary hospice care consultant to a significant other at home: No Do you presently have visiting nurse or other home services: No Alcohol intake: never Patient Tobacco Use Status: Never used Tobacco Smoked in Last 30 Days: No e-Cigarette/Vaping Use: Never Used Second Hand Smoke Exposure: No Use of substances other than those prescribed or required for medical reasons: No Advance Directives: Yes Advance Directives on File: Yes Advance Directives Date on File: 04/12/21 service: No Current occupational status: retired Cognitive needs: No Hearing needs: No Vision needs: Yes (glasses) Physical Exam ED Vital Signs: Vital Signs - 24 hr 03/08/23 12:39 03/08/23 13:53 Temperature 98.2 F 98.1 F Pulse Rate 92 93 Respiratory Rate 18 16 Blood Pressure 155/77 H 157/82 H Pulse Oximetry 98 98 Oxygen Delivery Method Room Air Room Air BMI result Body Mass Index 19.5 Vital signs stable Appearance: Alert. Oriented X3. No acute distress. Head: normocephalic, atraumatic. Eyes: Pupils equal, round and reactive to light. ENT: Pharynx normal. No tonsillar swelling or exudate. Neck: Normal inspection. Neck supple. CVS: Normal heart rate and rhythm. Pulses normal. Respiratory: No respiratory distress. Breath sounds normal. Abdomen: Soft, nontender to palpation of the RLQ, healed scar from cecal adnocarcinoma resection noted along the RLQ, nondistended, no rebound tenderness or guarding. +BS x4 Skin: Skin warm and dry. Normal skin color. Normal skin turgor. No rashes. Extremities: No lower extremity edema. No joint swelling. Neuro/psych: Oriented X 3. No motor deficit. No sensory deficit. CN II-XII intact. Normal speech and cognition. Medical Decision Making Medical Decision Making MDM Narrative: 82 yo male with history of HTN, anxiety, constipation, anemia, hx GI bleed, hx diverticulitis, hx cecal adenocarcinoma s/p resection by Dr. Saldaña in 2020 who presents to the ER for evaluation of lower abdominal burning sensation and discomfort where he had his tumor removed. Vital signs stable. Abdomen soft, mildly tender to palpation of the RLQ, no rebound or guarding, normocative BS, otherwise unremarkable. Plan: labs, UA, utox CBC without leukocytosis. Received critical lab result of magnesium of >9.5, labs redrawn >> 2nd mag level noted to be 2.1 >> no intervention indicated at this time. No other acute electrolyte abnormalities requiring intervention. UA without infection or blood. U tox and ethanol negative. Spoke with Dr. Saldaña who came down to the ED to evaluate patient. Dr. Saldaña feels comfortable to see this patient in his office as an outpatient this week. Discussed plan with patient who is agreeable to follow up with Dr. Saldaña out patient. Discussed worrisome signs and symptoms prompting return to ED. Patient agreeable to plan. Stable for discharge. Differential Diagnosis Differential Diagnoses: The differential diagnosis associated with the presentation includes Constipation, diverticulosis, diverticulitis, viral syndrome, colitis, recurrent cancer Admission/Observation Consideration of admission/observation: Escalation of care including admission/observation considered 82 yo male w/ abd pain, considered obs Consult Healthcare Provider Management of the patient was discussed with: Stenographic Court Reporter General surgery (Dr. Saldaña) Lab Data MDM Lab Attestation statement: I reviewed the patient's lab results. As above. 03/08/23 13:00 03/08/23 13:00 Labs: Lab Results 03/08/23 03/08/23 03/08/23 Range/Units 13:00 13:00 13:13 WBC 7.6 (4.8-10.8) X10*3/uL RBC 4.18 L (4.60-5.80) X10*6/uL Hgb 15.0 (14.0-18.0) g/dl Hct 42.0 (42.0-52.0) % MCV 100.5 H (80.0-98.0) fL MCH 35.9 H (27.0-33.0) pg MCHC 35.7 (31.0-36.0) g/dl RDW 13.1 (11.0-16.0) % Plt Count 278 (160-400) X10*3/uL MPV 9.9 (9.4-12.4) fL Immature Gran % (Auto) 0.4 (0.0-0.4) % Neut % (Auto) 84.0 H (45-73) % Lymph % (Auto) 9.9 L (20-40) % [place] % (Auto) 5.3 (2-11) % Eos % (Auto) 0.0 (0-4) % Baso % (Auto) 0.4 (0-2) % Lymph # (Auto) 0.8 L (1.2-4.9) X10*3/uL [place] # (Auto) 0.4 (0.1-1.2) X10*3/uL Eos # (Auto) 0.0 (0.0-0.4) X10*3/uL Baso # (Auto) 0.0 (0.0-0.2) X10*3/uL Abs Immat Gran (auto) 0.03 (0.00-0.03) X10*3/uL Absolute Neuts (auto) 6.3 (2.0-8.3) x10*3/uL Absolute Nucleated RBC 0.000 (0.0-0.012) X10*3/uL Nucleated RBC % (auto) 0.0 (0.0-0.2) /100WBC Sodium 135 (135-145) mmol/L Potassium 3.9 (3.3-5.1) mmol/L Chloride 100 (96-108) mmol/L Carbon Dioxide 26 (22-29) mmol/L Anion Gap 13 (12-20) BUN 11 (9-16) mg/dL Creatinine 0.89 (0.5-1.4) mg/dL Estim Creat Clear Calc 54.3 Estimated GFR > 60 Random Glucose 96 (60-115) mg/dL Calcium 9.4 (8.4-10.2) mg/dL Magnesium > 9.5 H* (1.6-2.6) mg/dL Total Bilirubin 1.3 H (0.0-1.0) mg/dL Direct Bilirubin 0.4 (0.0-0.5) mg/dL AST 37 (5-37) U/L ALT 23 (0-40) U/L Alkaline Phosphatase 54 (39-117) U/L Total Protein 7.4 (6.5-8.0) g/dL Albumin 4.3 (3.5-5.0) g/dL Lipase 25 (8-78) U/L Urine Color Yellow Urine Appearance Clear Urine pH 7.5 (5.0-9.0) Ur Specific [place] 1.010 (1.005-1.025) Urine Protein Negative (Neg-Trace) mg/dL Urine Glucose (UA) Negative (Negative) mg/dL Urine Ketones Trace (Negative) mg/dL Urine Blood Trace (Negative) Urine Nitrite Negative (Negative) Ur Leukocyte Esterase Negative (Negative) Urine Opiates Screen (Not Detect) Urine Fentanyl Screen (Not Detect) Ur Barbiturates Screen (Not Detect) Ur Phencyclidine Scrn (Not Detect) Ur Amphetamines Screen (Not Detect) U Benzodiazepines Scrn (Not Detect) Urine Cocaine Screen (Not Detect) U Marijuana (THC) Screen (Not Detect) Ethyl Alcohol < 10 mg/dL 03/08/23 03/08/23 Range/Units 13:13 13:31 WBC (4.8-10.8) X10*3/uL RBC (4.60-5.80) X10*6/uL Hgb (14.0-18.0) g/dl Hct (42.0-52.0) % MCV (80.0-98.0) fL MCH (27.0-33.0) pg MCHC (31.0-36.0) g/dl RDW (11.0-16.0) % Plt Count (160-400) X10*3/uL MPV (9.4-12.4) fL Immature Gran % (Auto) (0.0-0.4) % Neut % (Auto) (45-73) % Lymph % (Auto) (20-40) % [place] % (Auto) (2-11) % Eos % (Auto) (0-4) % Baso % (Auto) (0-2) % Lymph # (Auto) (1.2-4.9) X10*3/uL [place] # (Auto) (0.1-1.2) X10*3/uL Eos # (Auto) (0.0-0.4) X10*3/uL Baso # (Auto) (0.0-0.2) X10*3/uL Abs Immat Gran (auto) (0.00-0.03) X10*3/uL Absolute Neuts (auto) (2.0-8.3) x10*3/uL Absolute Nucleated RBC (0.0-0.012) X10*3/uL Nucleated RBC % (auto) (0.0-0.2) /100WBC Sodium (135-145) mmol/L Potassium (3.3-5.1) mmol/L Chloride (96-108) mmol/L Carbon Dioxide (22-29) mmol/L Anion Gap (12-20) BUN (9-16) mg/dL Creatinine (0.5-1.4) mg/dL Estim Creat Clear Calc Estimated GFR Random Glucose (60-115) mg/dL Calcium (8.4-10.2) mg/dL Magnesium 2.1 (1.6-2.6) mg/dL Total Bilirubin (0.0-1.0) mg/dL Direct Bilirubin (0.0-0.5) mg/dL AST (5-37) U/L ALT (0-40) U/L Alkaline Phosphatase (39-117) U/L Total Protein (6.5-8.0) g/dL Albumin (3.5-5.0) g/dL Lipase (8-78) U/L Urine Color Urine Appearance Urine pH (5.0-9.0) Ur Specific [place] (1.005-1.025) Urine Protein (Neg-Trace) mg/dL Urine Glucose (UA) (Negative) mg/dL Urine Ketones (Negative) mg/dL Urine Blood (Negative) Urine Nitrite (Negative) Ur Leukocyte Esterase (Negative) Urine Opiates Screen Not Detected (Not Detect) Urine Fentanyl Screen Not Detected (Not Detect) Ur Barbiturates Screen Not Detected (Not Detect) Ur Phencyclidine Scrn Not Detected (Not Detect) Ur Amphetamines Screen Not Detected (Not Detect) U Benzodiazepines Scrn Not Detected (Not Detect) Urine Cocaine Screen Not Detected (Not Detect) U Marijuana (THC) Screen Not Detected (Not Detect) Ethyl Alcohol mg/dL External Record Review External record reviewed: Inpatient record, Office record, Outpatient record and Prior outpatient radiology last CT september 2022 Tests considered The following testing was considered but not selected: Considered CT scan abd/pelvis however after reviewing labs and discussing case with Dr. Saldaña, not indicated at this time. Prescription Management I considered prescription management with: Pain Medication Chronic Conditions Patient?s care impacted by: Other Diverticulosis, hx of cecal adenocarcinoma Critical Care Time Critical Care Time Critical Care Time: No Discharge Plan Discharge Clinical Impression: Abdominal discomfort Patient Disposition: Home, Self-Care Instructions: Abdominal Pain (ED) Additional Instructions: Your lab workup and exam today were unremarkable. Dr. Saldaña recommends you follow up in the office. If you develop new or worsening symptoms call 911 or come back to the ER for further evaluation. Prescriptions: No Action tamsulosin [Flomax] 0.4 mg capsule 0.4 mg PO BEDTIME Qty: 90 2RF Hold Instructions: Doctor's Order ascorbic acid (vitamin C) 250 mg tablet 250 mg PO DAILY 90 Days Qty: 90 3RF cholecalciferol (vitamin D3) 50 mcg (2,000 unit) capsule 50 mcg PO DAILY 90 Days Qty: 90 3RF finasteride [Proscar] 5 mg tablet 5 mg PO DAILY Qty: 90 1RF amlodipine [Norvasc] 5 mg tablet 5 mg PO DAILY 90 Days Qty: 90 1RF cyanocobalamin (vitamin B-12) 1,000 mcg capsule 1,000 mcg PO DAILY 90 Days Qty: 90 1RF atorvastatin [Lipitor] 10 mg tablet 10 mg PO DAILY Qty: 90 1RF lorazepam 0.5 mg tablet 0.5 mg PO BID MDD 1 mg PRN (Reason: sleep) 7 Days Qty: 14 0RF docusate sodium [Colace] 100 mg capsule 100 mg PO BID PRN (Reason: constipation) Qty: 30 0RF bacitracin 500 unit/gram ointment 1 appl topical Q8H 15 Days Qty: 14 0RF magnesium oxide 400 mg magnesium tablet 400 mg PO DAILY 90 Days Qty: 90 1RF simethicone [Gas-X Extra Strength] 125 mg capsule 125 mg PO BID-QID PRN (Reason: abdominal distention) 30 Days Qty: 120 0RF omeprazole 20 mg capsule,delayed release(DR/EC) 20 mg PO DAILY Ref[place]: [facility] [place] [facility] [place] Group] Rocael Reeves PA-C [Primary Care Provider] - Interventions: ED Discharge Assessment Last Done: 03/08/23 14:44 Discharge Date/Time: 03/08/23 14:44
[2023-03-08 13:04] LABS: MANUAL DIFF FLAG NO
[2023-03-08 13:07] LABS: Basophils Percent Auto 0.4 % (0-2); Imm Gran Abs Auto 0.03 X10*3/uL (0.00-0.03); Imm Gran Pct Auto 0.4 % (0.0-0.4); Lymphocytes Absolute Auto 0.8 X10*3/uL (1.2-4.9); Lymphocytes Percent Auto 9.9 % (20-40); Mean Corpuscular HGB Conc 35.7 g/dl (31.0-36.0); Mean Corpuscular Hemoglobin 35.9 pg (27.0-33.0); Mean Corpuscular Volume 100.5 fL (80.0-98.0); Mean Platelet Volume 9.9 fL (9.4-12.4); Monocytes Absolute Auto 0.4 X10*3/uL (0.1-1.2); Monocytes Percent Auto 5.3 % (2-11); Neutrophils Absolute Auto 6.3 x10*3/uL (2.0-8.3); Platelet Count 278 X10*3/uL (160-400); Red Blood Count 4.18 X10*6/uL (4.60-5.80); Red Cell Distribution Width 13.1 % (11.0-16.0); White Blood Count 7.6 X10*3/uL (4.8-10.8)
[2023-03-08 13:24] LABS: Appearance Urine Clear; Color Urine Yellow; Glucose Urine UA Negative (Negative); Leukocyte Esterase Urine Negative (Negative); Nitrite Urine Negative (Negative); PH 7.5 (5.0-9.0); UMIC TRIGGER UACC YES; Urine Blood Trace (Negative); Urine Ketones Trace mg/dL (Negative); Urine Protein Negative (Neg-Trace)
[2023-03-08 13:26] LABS: Alanine Aminotransferase 23 U/L (0-40); Albumin Level 4.3 g/dL (3.5-5.0); Alkaline Phosphatase 54 U/L (39-117); Anion Gap 13 (12-20); Aspartate Amino Transferase 37 U/L (5-37); Bilirubin Direct 0.4 mg/dL (0.0-0.5); Bilirubin Total 1.3 mg/dL (0.0-1.0); Blood Urea Nitrogen 11 mg/dL (9-16); Calcium 9.4 mg/dL (8.4-10.2); Carbon Dioxide 26 mmol/L (22-29); Chloride 100 mmol/L (96-108); Creatinine Clr Calc Pharmacy 54.3; Estimated Glomerular Filt Rate > 60; Ethanol < 10 mg/dL; Glucose Random 96 mg/dL (60-115); Lipase 25 U/L (8-78); Potassium 3.9 mmol/L (3.3-5.1); Sodium 135 mmol/L (135-145); Total Protein 7.4 g/dL (6.5-8.0)
[2023-03-08 13:36] LABS: Amphetamine Screen Urine Not Detected (Not Detect); Barbiturates, Urine Not Detected (Not Detect); Benzodiazepines Screen Urine Not Detected (Not Detect); Cannabinoid Screen Urine Not Detected (Not Detect); Cocaine Screen Urine Not Detected (Not Detect); Fentanyl, urine Not Detected (Not Detect); Opiate Screen Urine Not Detected (Not Detect); Phencyclidine Screen Urine Not Detected (Not Detect)
[2023-03-08 13:53] VITALS: BP 157/82; PULSE 93; RESP 16; TEMP 36.7; O2SAT 98
[2023-03-08 13:54] LABS: Magnesium 2.1 mg/dL (1.6-2.6)
--- NOTE | 2023-03-08 14:18 | PM.CNGS ---
History of Present Illness Consult details Consult date: 03/08/23 Narrative: 82-year-old male with history of right colon resection who came to the ER because of burning pain on the left side of his abdomen. He says that he has had this on and off for about 2-3 weeks. He denies any GI complaints. He has good oral intake. He denies problems with bowel movements He denies any fever or chills. He does have severe anxiety and therefore went to the ER today He currently says that he does not have any pain. He denies any dysuria. Review of Systems Constitutional: Constitutional: Denies chills and Denies fever(s) Cardiovascular: Cardiovascular: Denies chest pain, Denies dyspnea and Denies dyspnea on exertion Respiratory: Respiratory: Denies cough, Denies dyspnea and Denies dyspnea on exertion Gastrointestinal: Gastrointestinal: Denies hematochezia and Denies change in bowel habits Genitourinary: Genitourinary: Denies hematuria and Denies difficulty urinating Musculoskeletal: Musculoskeletal: Denies back pain and Denies limited range of motion Neurologic: Denies focal weakness and Denies convulsions Psychiatric: Psychiatric: Denies depression and Denies mood swings PMF Past Medical History Medical History Adenocarcinoma of cecum Anemia History of urinary frequency HTN (hypertension) Hyperlipidemia Family History Family History Father No problems noted. Mother No problems noted. Brother Cardiovascular disease Diabetes Surgical History Surgical History H/O colonoscopy History of colon resection (~2020) History of esophagogastroduodenoscopy (EGD) History of left inguinal hernia repair (~02/2018) Hx of eye surgery Social History Social History Household Members: Significant Other Housing: House Are you a primary life care planner to a significant other at home: No Do you presently have visiting nurse or other home services: No Alcohol intake: never Patient Tobacco Use Status: Never used Tobacco e-Cigarette/Vaping Use: Never Used Second Hand Smoke Exposure: No Advance Directives Date on File: 04/12/21 service: No Current occupational status: retired Cognitive needs: No Hearing needs: No Vision needs: Yes (glasses) Meds Allergies Allergy/AdvReac Type Severity Reaction Status Date / Time lisinopril Allergy Severe lip Verified 03/08/23 12:37 swelling hydrochlorothiazide AdvReac Severe dizziness/ Verified 03/08/23 12:37 hyponatremia Home Medications Medication Instructions Recorded Confirmed Last Taken Type omeprazole 20 mg capsule,delayed 20 mg PO DAILY 09/07/21 02/27/23 08/08/22 History release Physical Exam Vital Signs: Vital Signs: Last Vital Signs Temp 98.1 F 03/08/23 13:53 Pulse 93 03/08/23 13:53 Resp 16 03/08/23 13:53 BP 157/82 H 03/08/23 13:53 Pulse Ox 98 03/08/23 13:53 O2 Del Method Room Air 03/08/23 13:53 BMI result Body Mass Index 19.5 Const: Other: Looks well and comfortable General: comfortable and no acute distress Orientation/consciousness: patient oriented x3 Neck: Neck: Yes no lymphadenopathy Resp: Auscultation: clear to auscultation bilaterally Cardio: Rhythm: regular rhythm GI: Palpation (GI): Soft to palpation, nontender and no guarding Neuro: General: patient oriented x3 Results Labs 03/08/23 13:00 03/08/23 13:00 Labs: Abnormal lab results 03/08/23 03/08/23 Range/Units 13:00 13:00 RBC 4.18 L (4.60-5.80) X10*6/uL MCV 100.5 H (80.0-98.0) fL MCH 35.9 H (27.0-33.0) pg Neut % (Auto) 84.0 H (45-73) % Lymph % (Auto) 9.9 L (20-40) % Lymph # (Auto) 0.8 L (1.2-4.9) X10*3/uL Magnesium > 9.5 H* (1.6-2.6) mg/dL Total Bilirubin 1.3 H (0.0-1.0) mg/dL Short CBC 03/08/23 Range/Units 13:00 WBC 7.6 (4.8-10.8) X10*3/uL Hgb 15.0 (14.0-18.0) g/dl Hct 42.0 (42.0-52.0) % Plt Count 278 (160-400) X10*3/uL BMP 03/08/23 13:00 Sodium 135 Potassium 3.9 Chloride 100 Carbon Dioxide 26 BUN 11 Creatinine 0.89 Calcium 9.4 Liver Function 03/08/23 Range/Units 13:00 Total Bilirubin 1.3 H (0.0-1.0) mg/dL Direct Bilirubin 0.4 (0.0-0.5) mg/dL AST 37 (5-37) U/L ALT 23 (0-40) U/L Alkaline Phosphatase 54 (39-117) U/L Albumin 4.3 (3.5-5.0) g/dL Urine 03/08/23 Range/Units 13:13 Urine Color Yellow Urine Appearance Clear Urine pH 7.5 (5.0-9.0) Ur Specific [place] 1.010 (1.005-1.025) Urine Protein Negative (Neg-Trace) mg/dL Urine Glucose (UA) Negative (Negative) mg/dL All other labs normal. Assessment and Plan (1) Abdominal discomfort: Status: Inactive He describes burning pain on the abdominal wall on the left side. His exam is otherwise very benign. He actually the head and any significant tenderness on deep palpation. He looks well. He had a CAT scan last September, which was unremarkable He denies any GI complaints. He has good bowel movements. He denies any nausea or vomiting. He has good oral intake. His UA is unremarkable and he does not have leukocytosis I assured him that at this time, it does not appear that he has any significant or worrisome intra-abdominal pathology. I would hold off on any CT scan for now in view of his very benign findings I told him that I will see him in the office to re-evaluate him in a week or 2. Time Spent With Patient Time: Total time managing care of this patient today ____ minutes. Procedures Date of Service Date of Service: 03/09/23
[2023-03-08 15:44] LABS: Bacteria Urine None Seen (None Seen); Hyaline Casts Urine 0-2 /LPF (0-2); Squamous Epithelial Cell Urine 0-2 /HPF (0-2); WBC Urine 0-5 /HPF (0-5)
[2023-03-12 10:48] LABS: Magnesium 2.1 mg/dL (1.6-2.6)
== END 2023-03-08 14:44 | disposition home or self-care (01) ==
PROVIDERS: Physician Assistant; Emergency Provider Emergency Medicine; PCP Physician Assistant
DX: R10.9 Unspecified abdominal pain (principal); I10 Essential (primary) hypertension; E78.5 Hyperlipidemia, unspecified; Z79.899 Other long term (current) drug therapy
CPT/HCPCS: 36415; 80048; 80076; 80307; 81001; 83690; 83735; 85025; 99284

== ENCOUNTER → 2023-03-08 13:19 | Outpatient (BNV) | payer MEDICARE, SELFPAY | PROVIDERS: Emergency Provider Emergency Medicine; PCP Physician Assistant; Visit Provider Surgery | DX: R10.9 Unspecified abdominal pain (principal) | CPT/HCPCS: 99283 ==

== ENCOUNTER 2023-03-12 09:03 | Outpatient (REF) | payer MEDICARE, SELFPAY | END 2023-03-12 09:04 | disposition home or self-care (01) | LOC: HO.LAB 09:03 | PROVIDERS: PCP Physician Assistant; Visit Provider Surgery | DX: R10.9 Unspecified abdominal pain (principal); Z85.038 Personal history of other malignant neoplasm of large intestine | CPT/HCPCS: 36415; 82378; 99212 ==

== ENCOUNTER 2023-03-12 09:03 | Outpatient (AMB) | payer MEDICARE, SELFPAY ==
--- NOTE | 2023-03-12 09:08 | MHC.OFFVIS ---
Intake Vital Signs 03/12/23 09:16 Height 5 ft 5 in Weight 124 lb BMI 20.6 BP 138/76 Blood Pressure Location Rt brachial Position Sitting Pulse 113 H Intake Visit Reasons: burning left abdominal pain, Hx RT colon resection Intake Note: [place] [facility] [place] for burning left abdominal pain,Hx of right colon resection. Patient c/o; reports burning left abdominal pain, denies loss of appetite. Recreation Facilities Supervisor Required: No Accompanied by: Other Relationship Allergies lisinopril Allergy (Severe, Verified 03/12/23 09:17) lip swelling hydrochlorothiazide Adverse Reaction (Severe, Verified 03/12/23 09:17) dizziness/ hyponatremia Medication List - Last Reconciled 03/12/23 by Nadeem Saldaña MD amlodipine (Norvasc) 5 mg PO DAILY 90 days ascorbic acid (vitamin C) 250 mg PO DAILY 90 days atorvastatin (Lipitor) 10 mg PO DAILY bacitracin 1 appl topical Q8H 15 days cholecalciferol (vitamin D3) 50 mcg PO DAILY 90 days cyanocobalamin (vitamin B-12) 1,000 mcg PO DAILY 90 days docusate sodium (Colace) 100 mg PO BID PRN finasteride (Proscar) 5 mg PO DAILY lorazepam 0.5 mg PO BID PRN 7 days MDD 1 mg magnesium oxide 400 mg PO DAILY 90 days omeprazole 20 mg PO DAILY simethicone (Gas-X Extra Strength) 125 mg PO BID-QID PRN 30 days tamsulosin (Flomax) 0.4 mg PO BEDTIME HPI burning left abdominal pain, Hx RT colon resection HPI Details He had gone to the ER last week because of left-sided abdominal pain. This he described this as sharp. He actually says that he has had this for many years. He however has this severe anxiety with his health issues according to his that is why he decided to go to the ER last week. He denies any vomiting. He has good bowel movements. He has good oral intake. He is well known to me for right colon resection for history of cancer. He says he does not have any pain at this time. He does state that he has episodes of this sharp pains for many years now. [facility] Medical History (Updated 03/12/23 @ 09:36 by Nadeem Saldaña MD) Adenocarcinoma of cecum Anemia History of urinary frequency HTN (hypertension) Hyperlipidemia Left sided abdominal pain Surgical History H/O colonoscopy History of colon resection (~2020) History of esophagogastroduodenoscopy (EGD) History of left inguinal hernia repair (~02/2018) Hx of eye surgery Family History Father No problems noted. Mother No problems noted. Brother Cardiovascular disease Diabetes Social History Household Members: Significant Other Housing: House Are you a primary personal care assistant to a significant other at home: No Do you presently have visiting nurse or other home services: No Alcohol intake: never Patient Tobacco Use Status: Never used Tobacco e-Cigarette/Vaping Use: Never Used Second Hand Smoke Exposure: No Advance Directives Date on File: 04/12/21 service: No Current occupational status: retired Cognitive needs: No Hearing needs: No Vision needs: Yes (glasses) Review of Systems Const Denies chills and Denies fever(s) Card Denies chest pain, Denies dyspnea and Denies dyspnea on exertion Resp Denies cough, Denies dyspnea and Denies dyspnea on exertion GI Denies hematochezia and Denies change in bowel habits Denies hematuria and Denies difficulty urinating Musc Denies back pain and Denies limited range of motion Neuro Denies focal weakness and Denies convulsions Psych Denies depression and Denies mood swings Physical Exam Vital Signs: Last Vital Signs Pulse 113 H 03/12/23 09:16 BP 138/76 03/12/23 09:16 BMI result Body Mass Index 20.6 Const General: comfortable and no acute distress Orientation/consciousness: patient oriented x3 Neck Neck: Yes no lymphadenopathy Resp Auscultation: clear to auscultation bilaterally Cardio Rhythm: regular rhythm GI Palpation (GI): Soft to palpation, nontender and no guarding Neuro General: patient oriented x3 Assessment & Plan Assessment & Plan (1) Left sided abdominal pain: Code(s): R10.9 - Unspecified abdominal pain Plan: He has occasional pain in the left side described above. He has had this for many years. He gone right colon resection in 2020 for cancer He has last CT scan in September, did not reveal any pathology. His lab tests on his ER visit recent last week were unremarkable His current exam is unremarkable. He does not have any tenderness at this time and there are no palpable masses. He has good GI functions and he does not have any GI complaints I assured him about the above findings. I told him that it does not appear that he will need any repeat CT scan at this time. He clinically he is doing very well. He is welcome to see me again down the line to be re-evaluated. He and his were comfortable with the plan. Coding Level of Care Code Est Pt Level 3 (49150) Diagnoses Left sided abdominal pain R10.9
[2023-03-12 09:16] VITALS: BP 138/76; PULSE 113; BMI 20.6
== END 2023-03-12 09:32 | disposition home or self-care (01) ==
PROVIDERS: PCP Physician Assistant; Visit Provider Surgery
DX: R10.9 Unspecified abdominal pain (principal)
CPT/HCPCS: 99213

== ENCOUNTER 2023-03-21 19:27 | Emergency (ER) | payer MEDICARE, SELFPAY ==
[2023-03-21 19:49] VITALS: BP 132/82; BP 136/76; PULSE 100; PULSE 98; RESP 16; TEMP 36.8; O2SAT 95; O2SAT 97; BMI 20.8
--- NOTE | 2023-03-21 19:51 | ECG_ITS ---
Test Reason : WEAKNESS Blood Pressure : / mmHG Vent. Rate : 100 BPM Atrial Rate : 100 BPM P-R Int : 210 ms QRS Dur : 072 ms QT Int : 340 ms P-R-T Axes : 055 028 053 degrees QTc Int : 438 ms Sinus rhythm with 1st degree A-V block Otherwise normal ECG When compared with ECG of 26-SEP-2022 13:43, OK interval has increased Referred By: Ruchi Arizmendi Electronically Signed By:AR MOTLEY
[2023-03-21 19:55] VITALS: BP 136/76; PULSE 98; RESP 16; TEMP 36.8; O2SAT 95
--- NOTE | 2023-03-21 19:57 | PC.NURSE ---
Pt presents to ER via EMS for dizziness/lightheadedness. Pt woke up with dizziness and not feeling like himself. Pt took an ativan this morning. Symptoms persisted and pt took another ativan. Pt is now still dizzy, lightheaded, and unsteady on his feet. EMS placed a 20g IV in the left forearm. Pt is A&Ox4, GCS 15, denies pain or NVD. Pt has no apparent distress or difficulty breathing. Pt waiting for lab and EKG a this time.
[2023-03-21 20:17] LABS: MANUAL DIFF FLAG NO
[2023-03-21 20:19] LABS: Basophils Percent Auto 0.6 % (0-2); Eosinophils Percent Auto 0.4 % (0-4); Hemoglobin 14.1 g/dl (14.0-18.0); Imm Gran Abs Auto 0.04 X10*3/uL (0.00-0.03); Imm Gran Pct Auto 0.8 % (0.0-0.4); Lymphocytes Absolute Auto 1.3 X10*3/uL (1.2-4.9); Lymphocytes Percent Auto 24.1 % (20-40); Mean Corpuscular HGB Conc 36.2 g/dl (31.0-36.0); Mean Corpuscular Hemoglobin 36.2 pg (27.0-33.0); Mean Corpuscular Volume 100.3 fL (80.0-98.0); Mean Platelet Volume 9.6 fL (9.4-12.4); Monocytes Absolute Auto 0.6 X10*3/uL (0.1-1.2); Monocytes Percent Auto 11.2 % (2-11); Neutrophils Absolute Auto 3.3 x10*3/uL (2.0-8.3); Neutrophils Percent Auto 62.9 % (45-73); Platelet Count 249 X10*3/uL (160-400); Red Blood Count 3.89 X10*6/uL (4.60-5.80); Red Cell Distribution Width 13.3 % (11.0-16.0); White Blood Count 5.3 X10*3/uL (4.8-10.8)
[2023-03-21 20:20] LABS: Appearance Urine Clear; Color Urine Yellow; Glucose Urine UA Negative (Negative); Leukocyte Esterase Urine Negative (Negative); Nitrite Urine Negative (Negative); Specific Gravity - Urine <= 1.005 (1.005-1.025); UMIC TRIGGER UACC YES; Urine Blood Trace (Negative); Urine Ketones Negative (Negative); Urine Protein Negative (Neg-Trace)
[2023-03-21 20:23] LABS: Bacteria Urine None Seen (None Seen); Hyaline Casts Urine 0-2 /LPF (0-2); RBC Urine 0-2 /HPF (0-2); Squamous Epithelial Cell Urine 0-2 /HPF (0-2); WBC Urine 0-5 /HPF (0-5)
[2023-03-21 20:35] LABS: INTERNATIONAL NORM RATIO 0.8 (0.9-1.1); Prothrombin Time 9.9 SEC (11.1-13.3)
[2023-03-21 20:48] LABS: Troponin-I High Sensitivity < 2.7 ng/L (<3.5-35.0)
[2023-03-21 20:56] LABS: Influenza A PCR NEGATIVE (Negative); Influenza B PCR NEGATIVE (Negative); Resp Syncy Virus RNA Qual PCR NEGATIVE (Negative); SARS COV2 PCR INHOUSE NEGATIVE (Negative)
--- NOTE | 2023-03-21 21:00 | ED.WEAKNESS ---
HPI - Weakness General Chief complaint: Dizziness Stated complaint: weakness Time Seen by Provider: 03/21/23 19:37 Source: patient Mode of arrival: EMS History of Present Illness HPI Narrative: This is an 82-year-old male who presents with complaints having difficulty sleeping, fatigue, weakness and states that he is experienced several life changes with having to decrease his responsibilities at [employer]. Patient has been here approximately 2 weeks ago for a complete workup that was negative. Patient has taken 2 Ativan that his primary care provider prescribed him, and patient and his states that every time that they call to try to get an appointment with her primary care doctor that they are told to come into the emergency room. Patient denies any fever, chills, sore throat, cough. He denies any shortness of breath or chest pain. Related Data Home Medications Medication Instructions Recorded Confirmed omeprazole 20 mg capsule,delayed 20 mg PO DAILY 09/07/21 03/12/23 release Previous Rx's Medication Instructions Recorded docusate sodium 100 mg capsule 100 mg PO BID PRN constipation #30 07/01/21 (Colace) caps tamsulosin 0.4 mg capsule (Flomax) 0.4 mg PO BEDTIME #90 caps 04/25/22 ascorbic acid (vitamin C) 250 mg 250 mg PO DAILY 90 days #90 tabs 05/29/22 tablet cholecalciferol (vitamin D3) 50 50 mcg PO DAILY 90 days #90 caps 07/24/22 mcg (2,000 unit) capsule finasteride 5 mg tablet (Proscar) 5 mg PO DAILY #90 tabs 09/05/22 bacitracin 500 unit/gram topical 1 appl topical Q8H 15 days #14 12/04/22 ointment grams magnesium oxide 400 mg PO DAILY 90 days #90 tabs 12/04/22 simethicone 125 mg capsule (Gas-X 125 mg PO BID-QID PRN abdominal 12/04/22 Extra Strength) distention 30 days #120 caps amlodipine 5 mg tablet (Norvasc) 5 mg PO DAILY htn 90 days #90 tabs 12/19/22 cyanocobalamin (vitamin B-12) 1,000 mcg PO DAILY 90 days #90 caps 12/19/22 1,000 mcg capsule atorvastatin 10 mg tablet (Lipitor) 10 mg PO DAILY #90 tabs 12/30/22 lorazepam 0.5 mg tablet 0.5 mg PO BID PRN sleep 7 days #14 02/23/23 tabs sildenafil 100 mg tablet 100 mg PO DAILY PRN sexual 03/16/23 activity 7 days #7 tabs Allergies Allergy/AdvReac Type Severity Reaction Status Date / Time lisinopril Allergy Severe lip Verified 03/12/23 09:17 swelling hydrochlorothiazide AdvReac Severe dizziness/ Verified 03/12/23 09:17 hyponatremia Review of Systems Review of Systems: Pertinent positives and negatives as stated in [facility] Past Medical History Source: nursing notes reviewed Medical History Adenocarcinoma of cecum Anemia History of colon cancer History of urinary frequency HTN (hypertension) Hyperlipidemia Left sided abdominal pain Surgical History H/O colonoscopy History of colon resection (~2020) History of esophagogastroduodenoscopy (EGD) History of left inguinal hernia repair (~02/2018) Hx of eye surgery Family History Family History Father No problems noted. Mother No problems noted. Brother Cardiovascular disease Diabetes Social History Social History Household Members: Significant Other Housing: House Are you a primary children's zoo caretaker to a significant other at home: No Do you presently have visiting nurse or other home services: No Alcohol intake: current Alcohol intake frequency: 0-2 drinks per day Alcohol type: wine Patient Tobacco Use Status: Never used Tobacco Smoked in Last 30 Days: No e-Cigarette/Vaping Use: Never Used Second Hand Smoke Exposure: No Use of substances other than those prescribed or required for medical reasons: No Advance Directives: Yes Advance Directives on File: Yes Advance Directives Date on File: 04/12/21 service: No Current occupational status: retired Cognitive needs: No Hearing needs: No Vision needs: Yes (glasses) Physical Exam Vital Signs: Vital Signs: Last Vital Signs Temp 98.2 F 03/21/23 19:55 Pulse 98 03/21/23 19:55 Resp 16 03/21/23 19:55 BP 136/76 03/21/23 19:55 Pulse Ox 95 03/21/23 19:55 O2 Del Method Room Air 03/21/23 19:55 BMI result Body Mass Index 20.8 VITAL SIGNS: Reviewed. GENERAL: Well developed, well nourished, in no acute distress. HEAD: Normocephalic/atraumatic EYES: PERRLA, EOMI EARS: Ext canals without abnormality NOSE: Nares patent bilateral OROPHARYNX: no oral lesions noted, posterior pharynx clear NECK: Supple, no adenopathy LUNGS: Normal breath sounds. No adventitious sounds or accessory muscle use. SpO2<95> CARDIOVASCULAR: Regular rate and rhythm without noted murmurs ABDOMEN: Soft, non-tender, non-distended with bowel sounds. MUSCULOSKELETAL: No tenderness, deformities, or effusions noted on gross inspection. EXTREMITIES: No cyanosis, clubbing or edema. SKIN: Inspection of the skin reveals no rashes NEUROLOGIC: Alert and oriented x 4. Strength and sensation to light touch were grossly intact x 4. Medical Decision Making Medical Decision Making [facility] Narrative: This is an 82-year-old male with history and clinical presentation that I have high suspicions is related with possible depression regarding change in current life style. He reportshe has had difficulty getting in to see his primary care provider but I do see the patient was seen on 02/27 and at that time lab work was ordered. Patient is also been seen here 3 times over the past month. His workups have been negative to include today. I reviewed all investigations and hematologic indices are without leukocytosis or left shift, there is no anemia or thrombocytopenia. Coagulation studies are without derangements. I reviewed chemistries from which were grossly within normal limits other than a chronically stable elevated total bilirubin. Troponin is undetectable. Urinalysis negative for UTI or hematuria. Viral testing is negative. Patient is otherwise discharged home with instructions to follow-up with his primary care provider an potentially get started on a small dose antidepressant. Patient is not currently suicidal. Differential Diagnosis Differential Diagnoses: The differential diagnosis associated with the presentation includes Please see the discussion above Admission/Observation Consideration of admission/observation: Escalation of care including admission/observation considered Please see the discussion above Lab Data [facility] Lab Attestation statement: I reviewed the patient's lab results. Please see the discussion above 03/21/23 20:07 Labs: Lab Results 03/21/23 03/21/23 03/21/23 Range/Units 20:07 20:07 20:07 WBC 5.3 (4.8-10.8) X10*3/uL RBC 3.89 L (4.60-5.80) X10*6/uL Hgb 14.1 (14.0-18.0) g/dl Hct 39.0 L (42.0-52.0) % MCV 100.3 H (80.0-98.0) fL MCH 36.2 H (27.0-33.0) pg MCHC 36.2 H (31.0-36.0) g/dl RDW 13.3 (11.0-16.0) % Plt Count 249 (160-400) X10*3/uL MPV 9.6 (9.4-12.4) fL Immature Gran % (Auto) 0.8 H (0.0-0.4) % Neut % (Auto) 62.9 (45-73) % Lymph % (Auto) 24.1 (20-40) % [place] % (Auto) 11.2 H (2-11) % Eos % (Auto) 0.4 (0-4) % Baso % (Auto) 0.6 (0-2) % Lymph # (Auto) 1.3 (1.2-4.9) X10*3/uL [place] # (Auto) 0.6 (0.1-1.2) X10*3/uL Eos # (Auto) 0.0 (0.0-0.4) X10*3/uL Baso # (Auto) 0.0 (0.0-0.2) X10*3/uL Abs Immat Gran (auto) 0.04 H (0.00-0.03) X10*3/uL Absolute Neuts (auto) 3.3 (2.0-8.3) x10*3/uL Absolute Nucleated RBC 0.000 (0.0-0.012) X10*3/uL Nucleated RBC % (auto) 0.0 (0.0-0.2) /100WBC PT 9.9 L (11.1-13.3) SEC INR 0.8 L (0.9-1.1) Troponin I High Sens (<3.5-35.0) ng/L Urine Color Urine Appearance Urine pH (5.0-9.0) Ur Specific [place] (1.005-1.025) Urine Protein (Neg-Trace) mg/dL Urine Glucose (UA) (Negative) mg/dL Urine Ketones (Negative) mg/dL Urine Blood (Negative) Urine Nitrite (Negative) Ur Leukocyte Esterase (Negative) Urine RBC (0-2) /HPF Urine WBC (0-5) /HPF Ur Squamous Epith Cells (0-2) /HPF Urine Bacteria (None Seen) Hyaline Casts (0-2) /LPF Influenza Type A (PCR) NEGATIVE (Negative) Influenza Type B (PCR) NEGATIVE (Negative) RSV RNA Qual (PCR) NEGATIVE (Negative) SARS-CoV-2 RNA (RT-PCR) NEGATIVE (Negative) 03/21/23 03/21/23 Range/Units 20:07 20:12 WBC (4.8-10.8) X10*3/uL RBC (4.60-5.80) X10*6/uL Hgb (14.0-18.0) g/dl Hct (42.0-52.0) % MCV (80.0-98.0) fL MCH (27.0-33.0) pg MCHC (31.0-36.0) g/dl RDW (11.0-16.0) % Plt Count (160-400) X10*3/uL MPV (9.4-12.4) fL Immature Gran % (Auto) (0.0-0.4) % Neut % (Auto) (45-73) % Lymph % (Auto) (20-40) % [place] % (Auto) (2-11) % Eos % (Auto) (0-4) % Baso % (Auto) (0-2) % Lymph # (Auto) (1.2-4.9) X10*3/uL [place] # (Auto) (0.1-1.2) X10*3/uL Eos # (Auto) (0.0-0.4) X10*3/uL Baso # (Auto) (0.0-0.2) X10*3/uL Abs Immat Gran (auto) (0.00-0.03) X10*3/uL Absolute Neuts (auto) (2.0-8.3) x10*3/uL Absolute Nucleated RBC (0.0-0.012) X10*3/uL Nucleated RBC % (auto) (0.0-0.2) /100WBC PT (11.1-13.3) SEC INR (0.9-1.1) Troponin I High Sens < 2.7 (<3.5-35.0) ng/L Urine Color Yellow Urine Appearance Clear Urine pH 7.0 (5.0-9.0) Ur Specific [place] <= 1.005 (1.005-1.025) Urine Protein Negative (Neg-Trace) mg/dL Urine Glucose (UA) Negative (Negative) mg/dL Urine Ketones Negative (Negative) mg/dL Urine Blood Trace H (Negative) Urine Nitrite Negative (Negative) Ur Leukocyte Esterase Negative (Negative) Urine RBC 0-2 (0-2) /HPF Urine WBC 0-5 (0-5) /HPF Ur Squamous Epith Cells 0-2 (0-2) /HPF Urine Bacteria None Seen (None Seen) Hyaline Casts 0-2 (0-2) /LPF Influenza Type A (PCR) (Negative) Influenza Type B (PCR) (Negative) RSV RNA Qual (PCR) (Negative) SARS-CoV-2 RNA (RT-PCR) (Negative) Independent Interpretation I performed an independent interpretation of an: EKG Interpretation: Sinus rhythm with first-degree AV block, HR-100, no STEMI, NV-210, QRS/QTC is within normal limits. External Record Review External record reviewed: Office record, Outpatient record, Prior outpatient labs and Prior outpatient radiology Chronic Conditions Patient?s care impacted by: Hypertension Discharge Plan Discharge Clinical Impression: Weakness, Depression Patient Disposition: Home, Self-Care Instructions: Depression (ED), Depression in Older Adults (ED), Weakness (ED) Additional Instructions: 1. Resume all home medications as prescribed. 2. Please follow-up with your primary care doctor by a calling the office in the morning. There were a number of tests that were ordered on 02/27. Return to the ER for any worsening symptoms. Prescriptions: No Action tamsulosin [Flomax] 0.4 mg capsule 0.4 mg PO BEDTIME Qty: 90 2RF Hold Instructions: Doctor's Order ascorbic acid (vitamin C) 250 mg tablet 250 mg PO DAILY 90 Days Qty: 90 3RF cholecalciferol (vitamin D3) 50 mcg (2,000 unit) capsule 50 mcg PO DAILY 90 Days Qty: 90 3RF finasteride [Proscar] 5 mg tablet 5 mg PO DAILY Qty: 90 1RF amlodipine [Norvasc] 5 mg tablet 5 mg PO DAILY 90 Days Qty: 90 1RF cyanocobalamin (vitamin B-12) 1,000 mcg capsule 1,000 mcg PO DAILY 90 Days Qty: 90 1RF atorvastatin [Lipitor] 10 mg tablet 10 mg PO DAILY Qty: 90 1RF lorazepam 0.5 mg tablet 0.5 mg PO BID MDD 1 mg PRN (Reason: sleep) 7 Days Qty: 14 0RF sildenafil 100 mg tablet 100 mg PO DAILY PRN (Reason: sexual activity) 7 Days Qty: 7 3RF Rx Instructions: administer 30 minutes to 4 hours before activity docusate sodium [Colace] 100 mg capsule 100 mg PO BID PRN (Reason: constipation) Qty: 30 0RF bacitracin 500 unit/gram ointment 1 appl topical Q8H 15 Days Qty: 14 0RF magnesium oxide 400 mg magnesium tablet 400 mg PO DAILY 90 Days Qty: 90 1RF simethicone [Gas-X Extra Strength] 125 mg capsule 125 mg PO BID-QID PRN (Reason: abdominal distention) 30 Days Qty: 120 0RF omeprazole 20 mg capsule,delayed release(DR/EC) 20 mg PO DAILY Referrals: Rocael Reeves PA-C [Physician Assorter] -
== END 2023-03-21 21:44 | disposition home or self-care (01) ==
PROVIDERS: Emergency Provider Student in an Organized Health Care Education/Training Program
DX: R53.1 Weakness (principal); F32.A Depression, unspecified; Z20.822 Contact with and (suspected) exposure to COVID-19; Z20.828 Contact with and (suspected) exposure to other viral communicable diseases; I10 Essential (primary) hypertension; E78.5 Hyperlipidemia, unspecified; D64.9 Anemia, unspecified; F41.9 Anxiety disorder, unspecified; I44.0 Atrioventricular block, first degree; Z85.038 Personal history of other malignant neoplasm of large intestine
CPT/HCPCS: 0241U; 36415; 81001; 84484; 85025; 85610; 93005; 99283; 99285

== ENCOUNTER 2023-03-29 11:07 | Outpatient (AMB) | payer MEDICARE, SELFPAY ==
[2023-03-29 11:09] VITALS: BP 142/68; PULSE 80; RESP 16; O2SAT 99; BMI 19.0
--- NOTE | 2023-03-29 11:09 | A.OFFPC_ITS ---
Vital Signs 03/29/23 11:09 03/29/23 11:57 Height 5 ft 8 in Weight 125 lb 4 oz BMI 19.0 BP 142/68 H 130/68 Blood Pressure Location Lt brachial Position Sitting Respiration 16 Pulse 80 Pulse Source Pulse Oximeter Pulse Oximetry (%) 99 Intake Visit Reasons: ED 03/[address] [facility], light headed, abdomen pain Intake Note: Patient is here to follow-up after a visit the emergency department at [facility] on 03/08/23 for light headed and abdominal pain. Supervisor Liquefaction Required: No Accompanied by: Self / Same As Patient Allergies lisinopril Allergy (Severe, Verified 03/29/23 11:22) lip swelling hydrochlorothiazide Adverse Reaction (Severe, Verified 03/29/23 11:22) dizziness/ hyponatremia Medication List - Last Reconciled 03/29/23 by Rocael Reeves PA-C amlodipine (Norvasc) 5 mg PO DAILY 90 days ascorbic acid (vitamin C) 250 mg PO DAILY 90 days atorvastatin (Lipitor) 10 mg PO DAILY bacitracin 1 appl topical Q8H 15 days cholecalciferol (vitamin D3) 50 mcg PO DAILY 90 days cyanocobalamin (vitamin B-12) (Vitamin B-12) 1,000 mcg PO DAILY docusate sodium (Colace) 100 mg PO BID PRN finasteride (Proscar) 5 mg PO DAILY hydroxyzine HCl 20 mg (2 x 10 mg) PO BEDTIME 15 days lorazepam 0.5 mg PO BID PRN 7 days MDD 1 mg magnesium oxide 400 mg PO DAILY 90 days magnesium oxide 400 mg PO DAILY omeprazole 20 mg PO DAILY sertraline (Zoloft) 25 mg PO DAILY sildenafil 100 mg PO DAILY PRN 7 days simethicone (Gas-X Extra Strength) 125 mg PO BID-QID PRN 30 days tamsulosin (Flomax) 0.4 mg PO BEDTIME Tobacco use date assessed: 08/18/22 Fall risk assessment: No Falls in past year Last assessed Fall Risk: 03/29/23 Dental Screening Dental Screen Date: 03/29/23 Did you have a dental visit in the last 12 months?: No Did you have a dental problem in the last 6 months where you did not have access to dental care?: No Was dental information given to patient?: Patient has dentist HPI ED 03/08 [facility], light headed, abdomen pain HPI Details Patient is an 82-year-old male here today for an ER follow-up visit. 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 He has been having recent feelings of fatigue and lethargy and has seen ER multiple times. Feels that he is somewhat anxious and has been started on Zoloft, also uses lorazepam on a p.r.n. basis though was found to be taking this medication more often. Reports having a lot of trouble sleeping, often feeling shaky, very nervous with racing thoughts. Labs and imaging have been stable. He does have a microcytic anemia He does report taking hydroxyzine 20 mg at night with not much relief his sleeping issue. He does reports feeling somewhat off balance when he wakes up at night and having her try throat which may be a side effect of hydroxyzine. He is willing to try a new medication to help him with sleep. Will try trazodone 25 mg before bed. There has been no clear cause for patient's worsening mental health. Only changes that have been made in his life was he stepped down and his mormonism has a Jehovah Witness and he has moved out who his home to an apartment in [place]. He has been set up with a mental health therapist to which he waits his 1st appointment with. [facility] Medical History Adenocarcinoma of cecum Anemia History of colon cancer History of urinary frequency HTN (hypertension) Hyperlipidemia Left sided abdominal pain Surgical History History of esophagogastroduodenoscopy (EGD) History of colon resection (~2020) Hx of eye surgery H/O colonoscopy History of left inguinal hernia repair (~02/2018) Family History Father No problems noted. Mother No problems noted. Brother Cardiovascular disease Diabetes Social History Household Members: Significant Other Housing: House Are you a primary human services care specialist to a significant other at home: No Do you presently have visiting nurse or other home services: No Alcohol intake: current Alcohol intake frequency: 0-2 drinks per day Alcohol type: wine Patient Tobacco Use Status: Never used Tobacco e-Cigarette/Vaping Use: Never Used Second Hand Smoke Exposure: No Advance Directives Date on File: 04/12/21 service: No Current occupational status: retired Cognitive needs: No Hearing needs: No Vision needs: Yes (glasses) Questionnaire Thrive Questionnaire Date Thrive assessed: 08/18/22 KEN-7 AMB Questionnaire KEN-7 Date KEN - 7 assessed: 08/18/22 Source: Developed by Drs. Joseph Riggins, Cheryl Johnson, Uche Isabel and colleagues, with an educational auerlio from [employer]. Review of Systems Const Denies headache(s) Eyes Denies loss of vision ENT Denies vertigo, Denies dizziness, Denies headache(s) and Denies sore throat Card Denies chest pain, Denies leg edema and Denies lightheadedness Resp Denies cough, Denies hemoptysis and Denies wheezing GI Denies abdominal pain, Denies melena, Denies constipation, Reports diarrhea and Denies vomiting Denies dysuria, Denies urinary frequency and Denies urinary urgency Musc Denies arthralgias, Denies joint swelling, Denies numbness and Denies tingling Neuro Denies Abnormal speech present, Denies behavioral changes, Denies vertigo, Denies dizziness, Denies headache(s), Denies loss of vision, Denies memory loss, Denies numbness and Denies tingling Psych Reports abnormal sleep pattern, Reports anxiety, Denies behavioral changes, Reports depression, Denies memory loss and Denies panic attacks Alek/Lymph Denies easy bleeding and Denies easy bruising Aller/Immun Denies wheezing Physical exam (Primary Care) Vital Signs: Last Vital Signs Pulse 80 03/29/23 11:09 Resp 16 03/29/23 11:09 BP 130/68 03/29/23 11:57 Pulse Ox 99 03/29/23 11:09 BMI result Body Mass Index 19.0 Tobacco/Smoking Status: Tobacco use Status Tobacco use date assessed 08/18/22 03/29/23 11:09 Patient Tobacco Use Status Never used Tobacco 03/29/23 11:09 e-Cigarette/Vaping Use Never Used 03/29/23 11:09 Thrive Assessment: Date of Thrive Assessment Date Thrive assessed 08/18/22 03/29/23 11:09 Const General: healthy appearing, no acute distress, alert and awake Nutritional Appearance: well nourished Orientation/consciousness: oriented to person, oriented to place and oriented to time HENMT Ears: TM's normal bilaterally General nose exam: Normal nasal mucous membranes and turbinates present Eyes Conjunctivae: conjunctivae normal Sclerae: sclerae normal Pupils: Equal, round and reactive pupils present Neck Neck: Yes no lymphadenopathy and Yes no JVD Thyroid: Thyroid normal Carotids: no bruits Resp Effort & Inspection: normal respiratory effort and not tachypneic Auscultation: no crackles, no rales, no rhonchi and no wheezes Cardio Rate: regular rate Rhythm: regular rhythm Heart sounds: no murmurs and normal S1 and S2 GI Palpation (GI): Soft to palpation, nontender, no hepatomegaly and no splenomegaly Auscultation: normal bowel sounds Skin General skin exam: no rashes or lesions noted and dry skin Neuro General: oriented to person, oriented to place and oriented to time Cranial nerves: Yes Equal, round and reactive pupils present Speech: No Abnormal speech present Gait exam (Neuro): Normal gait present Motor exam (neuro): no tremor noted Extrem Right upper extremity: full ROM Left upper extremity: full ROM Right lower extremity: full ROM; no edema Left lower extremity: full ROM; no edema Psych Mental Status: mental status grossly normal Speech and movement: Normal speech and movement present Affect: normal affect Attitude: cooperative Thought process: Normal thought process present Assessment and Plan Assessment & Plan (1) Anxiety: Code(s): F41.9 - Anxiety disorder, unspecified Plan: Patient's signs symptoms most consistent with a generalized anxiety disorder. Has been started on low-dose sertraline 25 mg. He does take lorazepam on a limited p.r.n. basis for anxious symptoms. Has been having trouble sleeping and has been using [id number] meds without much relief. Has tried hydroxyzine though reports side effect. He will try trazodone 25-50 mg before bed to help him asleep. He has been set up with a mental health therapist and is awaiting appointment. (2) Insomnia: Code(s): G47.00 - Insomnia, unspecified Qualifiers: Insomnia type: primary Qualified Code(s): F51.01 - Primary insomnia Plan: As above likely related to his anxiety will try trazodone 25-50 mg before bed. Orders: Orders Complete Blood Count no Diff Today I10 - Essential (primary) hypertension Vitamin D 25-OH Total Today R79.89 - Other specified abnormal findings of blood chemistry IRON PROFILE Today D50.9 - Iron deficiency anemia, unspecified, D53.9 - Nutritional anemia, unspecified Comprehensive [place]. Panel Fast Today I10 - Essential (primary) hypertension Vitamin B12 and Folate Today D53.9 - Nutritional anemia, unspecified, E53.8 - Deficiency of other specified B group vitamins Lipid Panel Today E78.2 - Mixed hyperlipidemia Medications: New loperamide 2 mg PO Q8H 7 days PRN 21 caps 0RF loose stool F41.9 - Anxiety disorder, unspecified, R19.7 - Diarrhea, unspecified trazodone 25 mg (1/2 x 50 mg) PO BEDTIME 30 days PRN 15 tabs 0RF sleep F41.9 - Anxiety disorder, unspecified Refilled lorazepam 0.5 mg PO BID 7 days PRN 14 tabs 0RF sleep MDD 1 mg F41.9 - Anxiety disorder, unspecified Discontinued magnesium oxide Discontinued Reason: Doctor's Order 400 mg PO DAILY 90 days 90 tabs 1RF M79.10 - Myalgia, unspecified site hydroxyzine HCl take 1- 2 tabs before bed Discontinued Reason: Doctor's Order 20 mg (2 x 10 mg) PO BEDTIME 15 days 30 tabs 1RF F41.9 - Anxiety disorder, unspecified Coding Level of Care Code Est Pt Level 3 (02307) Diagnoses Anxiety F41.9 Primary insomnia F51.01 Insomnia type: primary
[2023-03-29 11:57] VITALS: BP 130/68
== END 2023-03-29 12:06 | disposition home or self-care (01) ==
PROVIDERS: PCP Physician Assistant; Visit Provider Physician Assistant
DX: F41.9 Anxiety disorder, unspecified (principal); F51.01 Primary insomnia
CPT/HCPCS: 99213

== ENCOUNTER 2023-06-20 09:26 | Outpatient (REF) | payer MEDICARE, SELFPAY ==
--- NOTE | ~2023-06-20 | CT_ITS ---
EXAMINATION: CT CHEST, ABDOMEN AND PELVIS WITH CONTRAST CLINICAL INFORMATION: Colon cancer surveillance. COMPARISON: CT abdomen and pelvis 10/04/2022, CT chest, abdomen and pelvis 04/22/2021. TECHNIQUE: Multidetector volumetric imaging was performed from the thoracic inlet through the pubic symphysis following administration of 85 mL Omnipaque 350. Sagittal and coronal reformatted images were obtained on the technologist's workstation. This CT examination was performed using dose optimization techniques as appropriate, variously including the following: *Automated exposure control. *Adjustment of mA and/or kV according to patient size (this includes techniques or standardized protocols for targeted exams where dose is matched to indication/reason for exam; i.e. extremities or head). *Use of iterative reconstruction technique. DLP: 313.09 mGy-cm FINDINGS: CHEST: Lung: Again seen is biapical pleural-parenchymal scarring with calcification, unchanged from prior. Previously seen 4 mm peripheral subpleural nodule (prior 7:219) has resolved and is no longer present. I suspect this was inflammatory. Previously seen left upper lobe 2 mm nodule unchanged (7:116 compare prior 7:137). Previously seen 2 mm left upper lobe central nodule is unchanged (7:196 compare prior 7:217). Some other even smaller micronodules are unchanged. There is a new 3 mm nodule seen in the left lower lobe (7:356). This should be followed on future studies. There is no convincing evidence to suggest pulmonary metastatic disease. Mediastinum: Heart size normal. The thyroid is unremarkable. No aortic aneurysm. No mediastinal or hilar lymphadenopathy. Coronary Artery Calcium: Present. Pericardium/Pleura: No significant effusion. No pleural mass or thickening. Chest Wall/Axilla: Unremarkable. ABDOMEN/PELVIS: Peritoneal Space: No significant free air or free fluid identified. Liver, Gallbladder, Biliary Tree: The liver is normal in size, shape, and attenuation. Some low-attenuation is present next to the falciform ligament which probably represents focal fat. No worrisome solid focal hepatic lesion or biliary ductal dilatation is present. The gallbladder is unremarkable with no evidence of radiopaque gallstones, gallbladder wall thickening, or obvious pericholecystic inflammatory changes. Pancreas: Unremarkable. Spleen: Unremarkable. Adrenal Glands: Unremarkable. Kidneys and Ureters: The kidneys are normal in size, shape, and attenuation. No hydronephrosis, hydroureter, or calculi seen. Multiple bilateral benign Bosniak class I renal cysts are noted which require no additional imaging or follow-up. No solid renal masses are seen. No perinephric stranding. Bladder: Unremarkable. Gastrointestinal Tract: The small and large bowel are unremarkable. The appendix is not seen but there is no evidence of appendicitis evidence of appendicitis. Abdominal Wall: There is a small epigastric hernia seen containing only fat (3:80), unchanged from prior. Lymph Nodes: No retroperitoneal lymphadenopathy. VASCULAR: Calcific atherosclerotic changes are present in the aorta and iliofemoral vessels. There is no evidence of an abdominal aortic aneurysm.. The IVC appears unremarkable. PELVIC VISCERA: Mild BPH. Seminal vesicles normal OSSEUS STRUCTURES: Mild degenerative changes are noted in the spine. There is grade 1 retrolisthesis of L5 upon S1. No bony destructive lesions are seen. CT/CT abdomen pelvis w IV con IMPRESSION: 1. No convincing evidence of metastatic disease in the chest, abdomen or pelvis. 2. There is a new 3 mm nodule seen in the left lower lobe. This should be followed on future studies per oncology protocol. 3. Other incidental findings as described above including benign Bosniak class I renal cysts which require no additional imaging or follow-up, small epigastric hernia containing only fat, mild BPH and degenerative changes in the spine. Fleischner guidelines do not apply to oncology patients.
[2023-06-20] MEDS: iohexoL 350 MG/ML 100 ML INFUS..BTL IV (10:36)
[2023-06-20 11:33] LABS: Creatinine POC 0.5 mg/dL (0.5-1.4); GFR POC 60
== END 2023-06-20 09:27 | disposition home or self-care (01) ==
LOC: HO.CT 09:26
PROVIDERS: Visit Provider Internal Medicine
DX: C18.0 Malignant neoplasm of cecum (principal)
CPT/HCPCS: 71260; 74177; 82565; Q9967

== ENCOUNTER 2023-07-24 06:42 | Outpatient (REF) | payer MEDICARE, SELFPAY ==
[2023-07-24 07:46] LABS: Hemoglobin 14.9 g/dl (14.0-18.0); Mean Corpuscular HGB Conc 34.7 g/dl (31.0-36.0); Mean Corpuscular Hemoglobin 36.1 pg (27.0-33.0); Mean Corpuscular Volume 104.1 fL (80.0-98.0); Mean Platelet Volume 10.8 fL (9.4-12.4); Platelet Count 277 X10*3/uL (160-400); Red Blood Count 4.13 X10*6/uL (4.60-5.80); Red Cell Distribution Width 13.6 % (11.0-16.0); White Blood Count 4.3 X10*3/uL (4.8-10.8)
[2023-07-24 08:24] LABS: Alanine Aminotransferase 20 U/L (0-40); Albumin Level 4.4 g/dL (3.5-5.0); Alkaline Phosphatase 72 U/L (39-117); Anion Gap 15 (12-20); Aspartate Amino Transferase 45 U/L (5-37); Bilirubin Total 0.8 mg/dL (0.0-1.0); Blood Urea Nitrogen 13 mg/dL (9-16); Calcium 9.8 mg/dL (8.4-10.2); Carbon Dioxide 27 mmol/L (22-29); Chloride 104 mmol/L (96-108); Cholesterol 190 mg/dL (<200); Estimated Glomerular Filt Rate > 60; Glucose Fasting 79 mg/dL (60-99); HDL Cholesterol 94 mg/dL (>40); Iron 170 mcg/dL (45-160); LDL Cholesterol Calculated 61 mg/dL (<100); Percent Iron Saturation 56 % (15-50); Potassium 4.3 mmol/L (3.3-5.1); Sodium 142 mmol/L (135-145); Total Iron Binding Capacity 302 mcg/dL (228-428); Total Protein 7.7 g/dL (6.5-8.0); Triglycerides 178 mg/dL (<150); Unsaturated Iron Binding 132 ug/dL
[2023-07-24 08:37] LABS: Vitamin D 25-OH Total 56.6 ng/mL (>30)
[2023-07-24 08:47] LABS: Folate 3.7 ng/mL (> or = 4.0); Vitamin B12 825 pg/mL (200-900)
== END 2023-07-24 06:43 | disposition home or self-care (01) ==
LOC: HO.LAB 06:42
PROVIDERS: PCP Physician Assistant; Visit Provider Physician Assistant
DX: I10 Essential (primary) hypertension (principal); E78.2 Mixed hyperlipidemia; E53.8 Deficiency of other specified B group vitamins; E55.9 Vitamin D deficiency, unspecified; D50.9 Iron deficiency anemia, unspecified; D53.9 Nutritional anemia, unspecified
CPT/HCPCS: 36415; 80053; 80061; 82306; 82607; 82746; 83540; 85027

== ENCOUNTER 2023-08-01 12:20 | Outpatient (AMB) | payer MEDICARE, SELFPAY ==
[2023-08-01 12:32] VITALS: BP 120/68; PULSE 100; O2SAT 100; BMI 19.0
--- NOTE | 2023-08-01 12:32 | A.OFFPC_ITS ---
Vital Signs 08/01/23 12:32 Height 5 ft 8 in Weight 125 lb 4 oz BMI 19.0 BP 120/68 Blood Pressure Location Lt brachial Position Sitting Pulse 100 Pulse Source Pulse Oximeter Pulse Oximetry (%) 100 Oxygen Delivery Method Room Air Intake Visit Reasons: Annual PE Intake Note: Patient is here today for a physical. Neonatal Specialist Required: No Accompanied by: Self / Same As Patient Allergies lisinopril Allergy (Severe, Verified 08/01/23 12:43) lip swelling hydrochlorothiazide Adverse Reaction (Severe, Verified 08/01/23 12:43) dizziness/ hyponatremia Medication List - Last Reconciled 08/01/23 by Rocael Reeves PA-C amlodipine (Norvasc) 5 mg PO DAILY 90 days ascorbic acid (vitamin C) 250 mg PO DAILY 90 days atorvastatin (Lipitor) 10 mg PO DAILY barium sulfate 2%(w/v) (Readi-Cat 2) 450 mL PO DIRECTED cholecalciferol (vitamin D3) 50 mcg PO DAILY 90 days cyanocobalamin (vitamin B-12) (Vitamin B-12) 1,000 mcg PO DAILY docusate sodium (Colace) 100 mg PO BID PRN finasteride (Proscar) 5 mg PO DAILY folic acid 1 mg PO DAILY 90 days loperamide 2 mg PO Q8H PRN 7 days lorazepam 0.5 mg PO BID PRN 7 days MDD 1 mg omeprazole 20 mg PO DAILY simethicone (Gas-X Extra Strength) 125 mg PO BID-QID PRN 30 days tamsulosin (Flomax) 0.4 mg PO BEDTIME Tobacco use date assessed: 08/01/23 Fall risk assessment: No Falls in past year Last assessed Fall Risk: 08/01/23 Dental Screening Dental Screen Date: 08/01/23 Did you have a dental visit in the last 12 months?: Yes Did you have a dental problem in the last 6 months where you did not have access to dental care?: No Was dental information given to patient?: Patient has dentist HPI Annual PE HPI Details Patient is a 82-year-old male here today for a annual physical.? Patient has a past medical history significant for hypertension, anemia, colon cancer with resection, BPH, macrocytic anemia. Concern--> he continues to complain of chronic fatigue over the last 3 weeks. Repeat labs will within normal limits with the exception his continue macrocytic anemia. Iron studies normal . 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 He reports his fatigue has caused him to withdrawal from his usual daily activities. There are some concerns here for depression in his tried antidepressant medication though has not been been helpful. He still does suffer from anxiety to which he does use lorazepam on an as-needed basis. He is somewhat interested in speaking with a mental health therapist. Otherwise unclear etiology to patient's fatigue. ?HTN :? Blood pressure today in office acceptable will continue his current dose amlodipine with goal blood pressure to be below 140/90 ... macrocytic Anemia:?. noted low folate. Has been started on folic acid He has recently got CT of abdomen and pelvis which does show no acute intra abdo coleen pathology or recurrent C malignancy. CT of chest did show a 3 mm pulmonary nodule .. Colon Cancer screening: Has a history of colon cancer--> Recently had colonoscopy in 2021 Vaccines: Up-to-date with flu vaccine, COVID vaccine, pneumonia vaccine, needs up-to-date tetanus vaccine. Considering RSV vaccine [facility] Medical History History of colon cancer Left sided abdominal pain History of urinary frequency Adenocarcinoma of cecum HTN (hypertension) Anemia Hyperlipidemia Surgical History History of esophagogastroduodenoscopy (EGD) History of colon resection (~2020) Hx of eye surgery H/O colonoscopy History of left inguinal hernia repair (~02/2018) Family History Father No problems noted. Mother No problems noted. Brother Cardiovascular disease Diabetes Social History Household Members: Significant Other Housing: House Are you a primary critical care rn to a significant other at home: No Do you presently have visiting nurse or other home services: No Alcohol intake: current Alcohol intake frequency: 0-2 drinks per day Alcohol type: wine Patient Tobacco Use Status: Never used Tobacco e-Cigarette/Vaping Use: Never Used Second Hand Smoke Exposure: No Advance Directives Date on File: 04/12/21 service: No Current occupational status: retired Cognitive needs: No Hearing needs: No Vision needs: Yes (glasses) Questionnaire PHQ-9 Over the last 2 weeks, how often have you been bothered by any of the following problems? 1. Little interest or pleasure in doing things: not at all 2. Feeling down, depressed, or hopeless: not at all 3. Trouble falling or staying asleep, or sleeping too much: not at all 4. Feeling tired or having little energy: not at all 5. Poor appetite or overeating: not at all 6. Feeling bad about yourself - or that you are a failure or have let yourself or your family down: not at all 7. Trouble concentrating on things, such as reading the newspaper or watching television: not at all 8. Moving or speaking so slowly that other people could have noticed. Or the opposite - being so fidgety or restless that you have been moving around a lot more than usual: not at all 9. Thoughts that you would be better off or of hurting yourself in some way: not at all Total score: 0 Depression Screening Interpretation: Negative Depression Screening Done: Yes 18109 - PHQ-9 Billing: Yes Source: Developed by Drs. Joseph Riggins, Cheryl Johnson, Uche Isabel and colleagues, with an educational aurelio from [employer]. Thrive Questionnaire Date Thrive assessed: 08/01/23 I am a: Patient What is your living situation today?: I have a steady place to live Within the past 12 months, did the food you bought not last and you didn't have the money to get more?: Never true Within the past 12 months, did you worry whether your food would run out before you got money to buy more?: Never true Do you have trouble paying for medicines?: No Do you have trouble getting transportation to medical appointments?: No Do you have trouble paying your heating and electricity bill?: No Do you have trouble taking care of your child, family member or friend?: No Do you have trouble with day-to-day activities such as bathing, preparing meals, shopping, managing finances, etc.?: No Are you currently unemployed and looking for a job?: No Are you interested in more education?: No Please select the resources that you would like help with: None AUDIT C Alcohol Use Questionnaire (AUDIT-C) 1. How often do you have a drink containing alcohol?: 2-3 times a week 2. How many drinks containing alcohol do you have on a typical day when you are drinking?: 1 or 2 3. How often do you have six or more drinks on one occasion?: Never Total Score: 3 KEN-7 AMB Questionnaire KEN-7 Date KEN - 7 assessed: 08/01/23 Feeling nervous, anxious, or on edge: 0 = Not at all Not being able to stop or control worryin = Not at all Worrying too much about different things: 0 = Not at all Trouble relaxin = Not at all Being so restless that it is hard to sit still: 0 = Not at all Becoming easily annoyed or irritable: 0 = Not at all Feeling afraid as if something awful might happen: 0 = Not at all Total KEN-7 score (0-4 normal; 5-9 mild; 10-14 moderate; 15-21 severe): 0 Source: Developed by Drs. Joseph Riggins, Cheryl Johnson, Uche Isabel and colleagues, with an educational aurelio from [employer]. KEN-7 Assessment Billing KEN-7 Assessment Tool: KEN-7 Assessment 56550 Review of Systems Const Denies body aches, Denies chills, Denies excessive sweating, Denies fatigue, Denies fever(s) and Denies headache(s) Eyes Denies blurry vision ENT Denies dysphagia, Denies vertigo, Denies dizziness, Denies headache(s), Denies hearing loss and Denies tinnitus Card Denies chest pain, Denies chest pain with activity, Denies syncope, Denies irregular heart rhythm and Denies dyspnea Resp Denies chest congestion, Denies cough, Denies hemoptysis, Denies dyspnea and Denies wheezing GI Denies abdominal pain, Denies melena, Denies hematochezia, Denies coffee ground emesis, Denies dysphagia, Denies diarrhea, Denies nausea and Denies vomiting Denies difficulty urinating, Denies dysuria, Denies urinary frequency, Denies urinary hesitancy and Denies urinary urgency Musc Denies arthralgias, Denies limited range of motion, Denies muscle cramps and Denies muscle weakness Skin/Breast Denies rash and Denies skin ulcer Neuro Denies Abnormal speech present, Denies confusion, Denies vertigo, Denies dizziness, Denies syncope, Denies headache(s), Denies memory loss and Denies seizure-like activity Psych Denies anxiety, Denies confusion, Denies depression, Denies memory loss, Denies panic attacks and Denies paranoia Endo Denies excessive sweating, Denies fatigue, Denies flushing, Denies polydipsia and Denies polyuria Aller/Immun Denies wheezing Physical exam (Primary Care) Vital Signs: Last Vital Signs Pulse 100 08/01/23 12:32 BP 120/68 08/01/23 12:32 Pulse Ox 100 08/01/23 12:32 Oxygen Delivery Method Room Air 08/01/23 12:32 BMI result Body Mass Index 19.0 Tobacco/Smoking Status: Tobacco use Status Tobacco use date assessed 08/01/23 08/01/23 12:40 Patient Tobacco Use Status Never used Tobacco 08/01/23 12:40 e-Cigarette/Vaping Use Never Used 08/01/23 12:40 PHQ-9: PHQ-9 Score PHQ-9: Total score 0 08/01/23 13:19 Depression Screening Interpretation: Negative Thrive Assessment: Date of Thrive Assessment Date Thrive assessed 08/01/23 08/01/23 12:40 Const General: cooperative, comfortable, no acute distress, alert and awake; No confusion Orientation/consciousness: oriented to person, oriented to place, patient oriented x3 and No confusion HENMT Head: Yes normocephalic Ears: external ears normal and TM's normal bilaterally Face and sinus: No sinus tenderness Mouth: Normal oral and palatal mucosa present and tongue normal Teeth and gingiva: dentition normal and gingiva normal Throat: Yes posterior oropharynx normal, Yes tonsils normal and Yes uvula midline Eyes Conjunctivae: conjunctivae normal Sclerae: sclerae normal Pupils: Equal, round and reactive pupils present EOM: EOMs intact bilaterally Direct Ophthalmoscopy: No no photophobia Neck Neck: Yes no lymphadenopathy, No tender and Yes no JVD Thyroid: Thyroid normal Carotids: no bruits Chest Chest palpation & inspection: no tenderness Resp Effort & Inspection: normal respiratory effort, no audible wheezes, not labored and no stridor Auscultation: no crackles, no rales, no rhonchi and no wheezes Cardio Jugular venous distension: no JVD Rate: regular rate, not bradycardic and not tachycardic Rhythm: regular rhythm Bruits: no carotid bruits Peripheral pulses: Peripheral pulses 2+ throughout GI Inspection: Yes normal to inspection, No abdominal wall ecchymosis and No visible herniation Palpation (GI): Soft to palpation, nontender, no guarding, not rigid and No hepatosplenomegaly present Auscultation: normoactive bowel sounds General: Yes no CVA tenderness Back/Spine/Pelvis Back: no CVA tenderness and No back tenderness Cervical Spine: cervical ROM normal Thoracic/Lumbar Spine: thoracic and lumbar spine normal to inspection, straight leg raise negative bilaterally, No thoraco-lumbar ROM limited and No lumbar spinal tenderness Skin Lesions: no lesions Rashes: no rashes Wounds: no wounds Neuro General: oriented to person, oriented to place, patient oriented x3, CN's II-XI intact bilaterally and No confusion Cranial nerves: Yes Equal, round and reactive pupils present and Yes Normal accommodation reflex present Cognition (Neuro): normal cognition Speech: No Abnormal speech present Gait exam (Neuro): Normal gait present Motor exam (neuro): 5/5 motor strength present throughout Extrem Right upper extremity: full ROM; no cyanosis Left upper extremity: full ROM; no cyanosis Right lower extremity: no edema Left lower extremity: no edema Psych Appearance: grossly normal Mental Status: mental status grossly normal Affect: normal affect Attitude: cooperative Thought process: Normal thought process present Immunizations tetanus-diphtheria toxoids-Td 2 Lf unit-2 Lf unit/0.5 mL IM suspension Performing Provider: Rocael Reeves PA-C Performing Location: [facility] Administered by: KELBY Young on 08/01/23 13:20 Dose Route Admin Location Dispensed Lot Number Expiration Date [employer] M[employer]ainer 0.5 mL IM Left Deltoid 0.5 mL [id number] 11/19/23 [address]-7 [employer] VIS Given Date VIS Provided VIS Publication Date 08/01/23 Single Vaccine 21 Eligibility Eligibility Date Funding Source VFC Eligible-Medicaid 08/01/23 [facility] funds Assessment and Plan Assessment & Plan (1) Annual physical exam: Code(s): Z00.00 - Encounter for general adult medical examination without abnormal findings (2) Adenocarcinoma of cecum: Comment: w/colon resection 2020 Code(s): C18.0 - Malignant neoplasm of cecum Plan: Has a history of adenocarcinoma with resection in 2020. Continues to follow Oncology.. Recent CT of abdomen pelvis, chest without evidence of recurrent malignancy. Reports doing well and having going to the bathroom normal. Does report some abdominal bloating from time to time to which he takes Gas-X for. (3) HTN (hypertension): Code(s): I10 - Essential (primary) hypertension Qualifiers: Hypertension type: essential hypertension Qualified Code(s): I10 - Essential (primary) hypertension Plan: Patient's blood pressure acceptable today in office. Will continue his current dose amlodipine with goal blood pressure to remain below 140/90. (4) Anemia: Code(s): D64.9 - Anemia, unspecified Qualifiers: Anemia type: iron deficiency Iron deficiency anemia type: chronic blood loss Qualified Code(s): D50.0 - Iron deficiency anemia secondary to blood loss (chronic) Plan: Does seem to have a macrocytosis. Is followed by Hematology. Was found to have low folate and was started on folic acid. (5) Anxiety: Code(s): F41.9 - Anxiety disorder, unspecified Plan: Patient continues to suffer with anxiety, has tried SSRI therapy though has not been effective. Does use lorazepam on an as-needed basis. He is interested in speaking with mental health therapy Orders: Orders Vitamin B12 and Folate Today D53.9 - Nutritional anemia, unspecified, E53.8 - Deficiency of other specified B group vitamins Complete Blood Count no Diff Today D53.9 - Nutritional anemia, unspecified Lipid Panel Today E78.2 - Mixed hyperlipidemia Td State Immunization Today E78.2 - Mixed hyperlipidemia, Z23 - Encounter for immunization Referrals Counseling Referral F41.9 - Anxiety disorder, unspecified Coding Level of Care Code Est Pt Prev Care >65y(33629) Diagnoses Annual physical exam Z00.00 Adenocarcinoma of cecum C18.0 Essential hypertension I10 Hypertension type: essential hypertension Iron deficiency anemia due to chronic blood loss D50.0 Anemia type: iron deficiency Iron deficiency anemia type: chronic blood loss Anxiety F41.9 Additional Codes KEN-7 Assessment Billing - KEN-7 Assessment Tool: KEN-7 Assessment [id number] ([id number])
== END 2023-08-01 13:23 | disposition home or self-care (01) ==
PROVIDERS: PCP Physician Assistant; Visit Provider Physician Assistant
DX: Z00.00 Encounter for general adult medical examination without abnormal findings (principal); C18.0 Malignant neoplasm of cecum; I10 Essential (primary) hypertension; Z23 Encounter for immunization; D50.0 Iron deficiency anemia secondary to blood loss (chronic); F41.9 Anxiety disorder, unspecified; E78.2 Mixed hyperlipidemia
CPT/HCPCS: 90471; 90714; 99397

== ENCOUNTER 2024-01-11 07:40 | Outpatient (REF) | payer MEDICARE, SELFPAY ==
[2024-01-11 08:18] LABS: Hematocrit 42.3 % (42.0-52.0); Hemoglobin 14.6 g/dl (14.0-18.0); Mean Corpuscular HGB Conc 34.5 g/dl (31.0-36.0); Mean Corpuscular Hemoglobin 35.2 pg (27.0-33.0); Mean Corpuscular Volume 101.9 fL (80.0-98.0); Mean Platelet Volume 10.4 fL (9.4-12.4); Platelet Count 293 X10*3/uL (160-400); Red Blood Count 4.15 X10*6/uL (4.60-5.80); Red Cell Distribution Width 13.6 % (11.0-16.0)
[2024-01-11 08:31] LABS: Cholesterol 192 mg/dL (<200); HDL Cholesterol 77 mg/dL (>40); LDL Cholesterol Calculated 66 mg/dL (<100); Triglycerides 248 mg/dL (<150)
[2024-01-11 09:38] LABS: Folate 10.2 ng/mL (> or = 4.0); Vitamin B12 572 pg/mL (200-900)
== END 2024-01-11 07:41 | disposition home or self-care (01) ==
LOC: HO.LAB 07:40
PROVIDERS: PCP Physician Assistant; Visit Provider Physician Assistant
DX: E53.8 Deficiency of other specified B group vitamins (principal); D53.9 Nutritional anemia, unspecified; E78.2 Mixed hyperlipidemia
CPT/HCPCS: 36415; 80061; 82607; 82746; 85027

== ENCOUNTER 2024-01-30 08:50 | Outpatient (AMB) | payer MEDICARE, SELFPAY ==
--- NOTE | 2024-01-30 09:11 | MHC.PC.OV ---
Vital Signs 01/30/24 09:12 Height 5 ft 8 in Weight 127 lb 8 oz BMI 19.4 BP 124/78 Blood Pressure Location Lt brachial Position Sitting Pulse 100 Pulse Source Pulse Oximeter Pulse Oximetry (%) 96 Oxygen Delivery Method Room Air Intake Visit Reasons: f/u htn Intake Note: Patient is here to follow up on HTN and lab results. Press Secretary Required: No Counter Supply Worker: Present Accompanied by: Spouse Allergies lisinopril Allergy (Severe, Verified 01/30/24 09:12) lip swelling hydrochlorothiazide Adverse Reaction (Severe, Verified 01/30/24 09:12) dizziness/ hyponatremia Medication List - Last Reconciled 01/30/24 by Rocael Reeves PA-C amlodipine (Norvasc) 5 mg PO DAILY 90 days ascorbic acid (vitamin C) 250 mg PO DAILY 90 days atorvastatin (Lipitor) 10 mg PO DAILY barium sulfate 2%(w/v) (Readi-Cat 2) 450 mL PO DIRECTED cholecalciferol (vitamin D3) 50 mcg PO DAILY 90 days cyanocobalamin (vitamin B-12) (Vitamin B-12) 1,000 mcg PO DAILY docusate sodium (Colace) 100 mg PO BID PRN finasteride (Proscar) 5 mg PO DAILY folic acid 1 mg PO DAILY loperamide 2 mg PO Q8H PRN 7 days lorazepam 0.5 mg PO BID PRN 7 days MDD 1 mg omeprazole 20 mg PO DAILY sertraline 25 mg PO DAILY simethicone (Gas-X Extra Strength) 125 mg PO BID-QID PRN 30 days tamsulosin (Flomax) 0.4 mg PO BEDTIME Tobacco use date assessed: 01/30/24 Fall risk assessment: No Falls in past year Last assessed Fall Risk: 01/30/24 Dental Screening Dental Screen Date: 08/01/23 HPI f/u htn HPI Details Patient is a 83-year-old male here today for a follow-up visit? Patient has a past medical history significant for hypertension, anemia, colon cancer with resection, BPH, macrocytic anemia. Concern--> reports he has some chronic lower extremity weakness and feeling his balance is off. He is now willing to try physical therapy to help him with his balance and lower extremity strength ?HTN :? Blood pressure today in office acceptable will continue his current dose amlodipine with goal blood pressure to be below 140/90 ... macrocytic Anemia:? Most recent CBC, folate B12 level have been stable. Continues to follow hematology Has been started on folic acid supplementation He has recently got CT of abdomen and pelvis which does show no acute intra abdominal pathology or recurrent C malignancy. CT of chest did show a 3 mm pulmonary nodule. Of note still does some mild abdominal bloating. He denies any constipation or diarrhea. .. Anxiety: Seems to have been much better over the last several months. Has not to use much lorazepam. [facility] Medical History (Updated 01/31/24 @ 11:17 by Rocael Reeves PA-C) History of colon cancer Left sided abdominal pain History of urinary frequency Adenocarcinoma of cecum HTN (hypertension) Anemia Hyperlipidemia Surgical History (Updated 01/31/24 @ 11:17 by Rocael Reeves PA-C) S/P right colectomy History of esophagogastroduodenoscopy (EGD) History of colon resection (~2020) Hx of eye surgery H/O colonoscopy History of left inguinal hernia repair (~02/2018) Family History Father No problems noted. Mother No problems noted. Brother Cardiovascular disease Diabetes Social History Household Members: Significant Other Housing: House Are you a primary day care attendant to a significant other at home: No Do you presently have visiting nurse or other home services: No Alcohol intake: current Alcohol intake frequency: 0-2 drinks per day Alcohol type: wine Patient Tobacco Use Status: Never used Tobacco e-Cigarette/Vaping Use: Never Used Second Hand Smoke Exposure: No Advance Directives Date on File: 04/12/21 service: No Current occupational status: retired Cognitive needs: No Hearing needs: No Vision needs: Yes (glasses) Questionnaire Thrive Questionnaire Date Thrive assessed: 08/01/23 KEN-7 AMB Questionnaire KEN-7 Date KEN - 7 assessed: 08/01/23 Source: Developed by Drs. Joseph Riggins, Cheryl Johnson, Uche Isabel and colleagues, with an educational aurelio from [employer]. Review of Systems Const Denies headache(s) Eyes Denies loss of vision ENT Denies vertigo, Denies dizziness, Denies headache(s) and Denies sore throat Card Denies chest pain, Denies leg edema and Denies lightheadedness Resp Denies cough, Denies hemoptysis and Denies wheezing GI Denies abdominal pain, Denies melena, Denies constipation, Denies diarrhea and Denies vomiting Denies dysuria, Denies urinary frequency and Denies urinary urgency Musc Denies arthralgias, Denies joint swelling, Denies numbness and Denies tingling Neuro Denies Abnormal speech present, Denies behavioral changes, Denies vertigo, Denies dizziness, Denies headache(s), Denies loss of vision, Denies memory loss, Denies numbness and Denies tingling Psych Denies anxiety, Denies behavioral changes, Denies depression, Denies memory loss and Denies panic attacks Alek/Lymph Denies easy bleeding and Denies easy bruising Aller/Immun Denies wheezing Physical exam (Primary Care) Vital Signs: Last Vital Signs Pulse 100 01/30/24 09:12 BP 124/78 01/30/24 09:12 Pulse Ox 96 01/30/24 09:12 Oxygen Delivery Method Room Air 01/30/24 09:12 BMI result Body Mass Index 19.4 Tobacco/Smoking Status: Tobacco use Status Tobacco use date assessed 01/30/24 01/30/24 09:14 Patient Tobacco Use Status Never used Tobacco 01/30/24 09:14 e-Cigarette/Vaping Use Never Used 01/30/24 09:14 Thrive Assessment: Date of Thrive Assessment Date Thrive assessed 08/01/23 01/30/24 09:14 Const General: healthy appearing, no acute distress, alert and awake Nutritional Appearance: well nourished Orientation/consciousness: oriented to person, oriented to place and oriented to time [facility] Ears: TM's normal bilaterally General nose exam: Normal nasal mucous membranes and turbinates present Eyes Conjunctivae: conjunctivae normal Sclerae: sclerae normal Pupils: Equal, round and reactive pupils present Neck Neck: Yes no lymphadenopathy and Yes no JVD Thyroid: Thyroid normal Carotids: no bruits Resp Effort & Inspection: normal respiratory effort and not tachypneic Auscultation: no crackles, no rales, no rhonchi and no wheezes Cardio Rate: regular rate Rhythm: regular rhythm Heart sounds: no murmurs and normal S1 and S2 GI Palpation (GI): Soft to palpation, nontender, no hepatomegaly and no splenomegaly Auscultation: normal bowel sounds Skin General skin exam: no rashes or lesions noted and dry skin Neuro General: oriented to person, oriented to place and oriented to time Cranial nerves: Yes Equal, round and reactive pupils present Speech: No Abnormal speech present Gait exam (Neuro): Normal gait present Motor exam (neuro): no tremor noted Extrem Right upper extremity: full ROM Left upper extremity: full ROM Right lower extremity: full ROM; no edema Left lower extremity: full ROM; no edema Psych Mental Status: mental status grossly normal Speech and movement: Normal speech and movement present Affect: normal affect Attitude: cooperative Thought process: Normal thought process present Assessment and Plan Assessment & Plan (1) HTN (hypertension): Code(s): I10 - Essential (primary) hypertension Qualifiers: Hypertension type: essential hypertension Qualified Code(s): I10 - Essential (primary) hypertension Plan: Patient's blood pressure acceptable today in office. Will continue his current dose amlodipine with goal blood pressure to remain below 140/90. (2) Anemia: Code(s): D64.9 - Anemia, unspecified Qualifiers: Anemia type: iron deficiency Iron deficiency anemia type: chronic blood loss Qualified Code(s): D50.0 - Iron deficiency anemia secondary to blood loss (chronic) Plan: Does seem to have a macrocytosis. Is followed by Hematology. Was found to have low folate and was started on folic acid. (3) Anxiety: Code(s): F41.9 - Anxiety disorder, unspecified Plan: Anxiety seems to have been much better as of late. Does use sertraline 25 mg daily. Does use lorazepam on an as-needed basis. (4) Balance problem: Code(s): R26.89 - Other abnormalities of gait and mobility Plan: Willing to do physical therapy Orders: Orders PT Evaluation and Treatment 01/30/24 R26.89 - Other abnormalities of gait and mobility Comprehensive [place]. Panel Fast 01/30/24 I10 - Essential (primary) hypertension Vitamin B12 and Folate 01/30/24 D50.0 - Iron deficiency anemia secondary to blood loss (chronic), E53.8 - Deficiency of other specified B group vitamins Vitamin D 25-OH Total 01/30/24 R79.89 - Other specified abnormal findings of blood chemistry Microalbumin, Random (w Creat) 01/30/24 I10 - Essential (primary) hypertension Prostate Specific Antigen Scr 01/30/24 I10 - Essential (primary) hypertension, Z12.5 - Encounter for screening for malignant neoplasm of prostate Complete Blood Count no Diff 01/30/24 I10 - Essential (primary) hypertension Patient Instructions: Goal: Blood pressure to remain below 140/90 Barriers: Adherence to physical activity and healthy eating habits Coding Level of Care Code Est Pt Level 4 (13410) Diagnoses Essential hypertension I10 Hypertension type: essential hypertension Iron deficiency anemia due to chronic blood loss D50.0 Anemia type: iron deficiency Iron deficiency anemia type: chronic blood loss Anxiety F41.9 Balance problem R26.89
[2024-01-30 09:12] VITALS: BP 124/78; PULSE 100; O2SAT 96; BMI 19.4
== END 2024-01-30 09:51 | disposition home or self-care (01) ==
PROVIDERS: PCP Physician Assistant; Visit Provider Physician Assistant
DX: I10 Essential (primary) hypertension (principal); D50.0 Iron deficiency anemia secondary to blood loss (chronic); F41.9 Anxiety disorder, unspecified; R26.89 Other abnormalities of gait and mobility
CPT/HCPCS: 99214

== ENCOUNTER 2024-05-29 07:46 | Outpatient (REF) | payer MEDICARE, SELFPAY ==
[2024-05-29 08:13] LABS: Blood Urea Nitrogen 22 mg/dL (9-16); Estimated Glomerular Filt Rate > 60
== END 2024-05-29 07:47 | disposition home or self-care (01) ==
LOC: HO.LAB 07:46
PROVIDERS: PCP Physician Assistant; Visit Provider Internal Medicine
DX: C18.0 Malignant neoplasm of cecum (principal)
CPT/HCPCS: 36415; 82565; 84520

== ENCOUNTER 2024-06-10 08:00 | Outpatient (REF) | payer MEDICARE, SELFPAY ==
--- NOTE | ~2024-06-10 | CT_ITS ---
EXAMINATION: CT ABDOMEN AND PELVIS WITH CONTRAST CLINICAL INFORMATION: Surveillance, colon cancer COMPARISON: June 20, 2023 TECHNIQUE: Multidetector volumetric images were obtained from the superior aspect of the liver through the pubic symphysis following administration 85 mL of Omnipaque 350 intravenous contrast. Sagittal and coronal reformatted images were obtained on the technologist's workstation. Oral contrast: Wasn't used This CT examination was performed using dose optimization techniques as appropriate, variously including the following: *Automated exposure control *Adjustment of mA and/or kV according to patient size (this includes techniques or standardized protocols for targeted exams where dose is matched to indication/reason for exam; i.e. extremities or head) *Use of iterative reconstruction technique DLP: 118 mGy-cm for the chest and 203 mGy-cm for the abdomen FINDINGS: LUNGS: Lungs are clear without nodules or infiltrates. Central airways are patent. Mediastinum: There is no mediastinal or hilar lymphadenopathy seen. Aorta is calcified, ectatic but not dilated there is aortic arch and ascending aorta measured 3.7 x 3.8 cm. Coronary artery calcifications are moderate. There is no pericardial effusion. Thyroid gland is unremarkable. LIVER, GALLBLADDER, AND BILIARY TREE: The liver is normal in size, shape, and attenuation. No focal hepatic lesion or biliary ductal dilatation is present. The gallbladder is unremarkable with no evidence of radiopaque gallstones, gallbladder wall thickening, or obvious pericholecystic inflammatory changes. PANCREAS: Unremarkable. SPLEEN: Unremarkable. ADRENAL GLANDS: Unremarkable. KIDNEYS AND URETERS: Left kidney redemonstrated parapelvic 3.2 x 2.8 cm cyst and small exophytic lower pole cysts. Right kidney is unremarkable with exophytic lower pole simple 2.4 cm cyst. BLADDER: Urinary bladder is incompletely distended with borderline thickness of the wall, correlate with clinical history. GASTROINTESTINAL TRACT: Patient is status post colon resection with well functioning anastomosis on the right. Visualized bowel loops are normal. Mesentery is unremarkable. There is no mesenteric lymphadenopathy. ABDOMINAL WALL: There is a right inguinal hernia with herniation of colonic loop. There is wide hiatus right inguinal hernia measured approximately 6 cm. LYMPH NODES: No evidence of lymphadenopathy VASCULAR: Atherosclerotic calcification seen in the abdominal aorta without aneurysmal dilatation. PELVIC VISCERA: Unremarkable. OSSEOUS STRUCTURES: Unremarkable. CT/CT abdomen pelvis w IV con IMPRESSION: No evidence of metastasis. Bilateral renal cysts. Borderline thickness of urinary bladder wall. Well functioning anastomosis, status post colon resection of the right. Fleischner guidelines were followed. Electronically signed by: Blanka Ford MD 06/11/2024 04:30 PM INOC[facility]E MONACO
--- NOTE | ~2024-06-10 | CT_ITS ---
EXAMINATION: CT CHEST WITHOUT CONTRAST CLINICAL INFORMATION: Follow up lung nodule COMPARISON: June 20, 2024 TECHNIQUE: Multidetector volumetric CT imaging of the chest was done. Axial MIP volume rendering provided. Sagittal and coronal reformatted images were obtained. This CT examination was performed using dose optimization techniques as appropriate, variously including the following: *Automated exposure control *Adjustment of mA and/or kV according to patient size (this includes techniques or standardized protocols for targeted exams where dose is matched to indication/reason for exam; i.e. extremities or head) *Use of iterative reconstruction technique DLP: 118 mGy-cm FINDINGS: COMPUTER SYSTEM TECHNICIAN: Unremarkable LUNGS: There are no lung nodules. Calcified granuloma seen in the right lower lobe image 401 series 7 MEDIASTINUM: There is no mediastinal or hilar lymphadenopathy. Aorta is not dilated but calcified. There is no pericardial effusion. Thyroid gland is unremarkable. CORONARY ARTERY CALCIFICATION: Coronary artery calcification and moderate to calcified. PLEURA: There is no pleural effusion. No pleural mass or thickening. AXILLA: No lymphadenopathy. UPPER ABDOMEN: Unremarkable. OSSEOUS STRUCTURES: Unremarkable. CT/CT chest wo IV con IMPRESSION: No lung nodules. Calcified granuloma in the right lower lobe. Fleischner guidelines were followed. Electronically signed by: Blanka Ford MD 06/11/2024 04:39 PM EST
[2024-06-10] MEDS: iohexoL 350 MG/ML 100 ML INFUS..BTL IV (09:09)
== END 2024-06-10 08:01 | disposition home or self-care (01) ==
LOC: HO.CT 08:00
PROVIDERS: PCP Physician Assistant; Visit Provider Internal Medicine
DX: C18.0 Malignant neoplasm of cecum (principal)
CPT/HCPCS: 71250; 74177; Q9967

== ENCOUNTER 2024-07-18 09:30 | Outpatient (REF) | payer MEDICARE, SELFPAY ==
[2024-07-18 09:51] LABS: Hemoglobin 14.4 g/dl (14.0-18.0); Mean Corpuscular HGB Conc 34.3 g/dl (31.0-36.0); Mean Corpuscular Hemoglobin 34.8 pg (27.0-33.0); Mean Corpuscular Volume 101.4 fL (80.0-98.0); Mean Platelet Volume 10.2 fL (9.4-12.4); Platelet Count 285 X10*3/uL (160-400); Red Blood Count 4.14 X10*6/uL (4.60-5.80); Red Cell Distribution Width 13.9 % (11.0-16.0); White Blood Count 5.7 X10*3/uL (4.8-10.8)
[2024-07-18 11:05] LABS: Alanine Aminotransferase 21 U/L (0-40); Albumin Level 4.6 g/dL (3.5-5.0); Alkaline Phosphatase 68 U/L (39-117); Anion Gap 14 (12-20); Aspartate Amino Transferase 39 U/L (5-37); Bilirubin Total 0.9 mg/dL (0.0-1.0); Blood Urea Nitrogen 16 mg/dL (9-16); Calcium 9.3 mg/dL (8.4-10.2); Carbon Dioxide 24 mmol/L (22-29); Chloride 103 mmol/L (96-108); Estimated Glomerular Filt Rate > 60; Glucose Fasting 88 mg/dL (60-99); Potassium 4.1 mmol/L (3.3-5.1); Sodium 137 mmol/L (135-145); Total Protein 7.9 g/dL (6.5-8.0)
[2024-07-18 11:05] LABS: Creatinine Urine 90.81 mg/dL; Microalbum/Creatinine Ratio Ur 34.1 ug/mg cr (<30)
[2024-07-18 11:38] LABS: Folate 18.5 ng/mL (> or = 4.0); Prostate Specific Antigen Scr 1.29 ng/mL (<0.05-4.0); Vitamin B12 432 pg/mL (200-900)
== END 2024-07-18 09:31 | disposition home or self-care (01) ==
LOC: HO.LAB 09:30
PROVIDERS: PCP Physician Assistant; Visit Provider Physician Assistant
DX: I10 Essential (primary) hypertension (principal); D50.0 Iron deficiency anemia secondary to blood loss (chronic); E53.8 Deficiency of other specified B group vitamins; Z12.5 Encounter for screening for malignant neoplasm of prostate; R79.89 Other specified abnormal findings of blood chemistry
CPT/HCPCS: 36415; 80053; 82043; 82306; 82570; 82607; 82746; 84153; 85027

== ENCOUNTER 2024-08-04 09:08 | Outpatient (AMB) | payer MEDICARE, SELFPAY ==
[2024-08-04 09:19] VITALS: BP 128/70; PULSE 106; TEMP 36.2; O2SAT 98; BMI 19.8
--- NOTE | 2024-08-04 09:19 | A.OFFPC_ITS ---
Vital Signs 08/04/24 09:19 Height 5 ft 8 in Weight 130 lb 2 oz BMI 19.8 BP 128/70 Blood Pressure Location Lt brachial Position Sitting Pulse 106 H Pulse Source Pulse Oximeter Temp 97.1 F Temp Source Temporal Artery Scan Pulse Oximetry (%) 98 Oxygen Delivery Method Room Air Intake Visit Reasons: Annual exam/ f/u HTN Janitorial Cleaner Required: No Accompanied by: Self / Same As Patient Allergies lisinopril Allergy (Severe, Verified 08/04/24 09:22) lip swelling hydrochlorothiazide Adverse Reaction (Severe, Verified 08/04/24 09:22) dizziness/ hyponatremia Medication List - Last Reconciled 08/04/24 by GILBERT Castro-Emanuel amlodipine (Norvasc) 5 mg PO DAILY 90 days ascorbic acid (vitamin C) 250 mg PO DAILY 90 days atorvastatin (Lipitor) 10 mg PO DAILY barium sulfate 2%(w/v) (Readi-Cat 2) 450 mL PO DIRECTED cholecalciferol (vitamin D3) 50 mcg PO DAILY 90 days cyanocobalamin (vitamin B-12) (Vitamin B-12) 1,000 mcg PO DAILY docusate sodium (Colace) 100 mg PO BID PRN finasteride (Proscar) 5 mg PO DAILY folic acid 1 mg PO DAILY lidocaine HCl 2% (Lidocaine Viscous) 10 mL mucous membrane BID PRN 15 days loperamide 2 mg PO Q8H PRN 7 days lorazepam 0.5 mg PO BID PRN 7 days MDD 1 mg omeprazole 20 mg PO DAILY sennosides-docusate sodium 8.6-50 mg (Senna Plus) 2 tab-caps (2 x 8.6-50 mg) PO BEDTIME sertraline 25 mg PO DAILY 90 days simethicone (Gas-X Extra Strength) 125 mg PO BID-QID PRN 30 days tamsulosin (Flomax) 0.4 mg PO BEDTIME Tobacco use date assessed: 08/04/24 Fall risk assessment: No Falls in past year Last assessed Fall Risk: 08/04/24 Dental Screening Dental Screen Date: 08/04/24 Did you have a dental visit in the last 12 months?: Yes Did you have a dental problem in the last 6 months where you did not have access to dental care?: No Was dental information given to patient?: Patient has dentist HPI Annual exam/ f/u HTN HPI Details Patient is a 83-year-old male here today for a Annual physical. ? Patient has a past medical history significant for hypertension, anemia, colon cancer with resection, BPH, macrocytic anemia. ?HTN :? Blood pressure today in office acceptable will continue his current dose amlodipine with goal blood pressure to be below 140/90 ... macrocytic Anemia:? Most recent CBC, folate B12 level have been stable. Continues to follow hematology Has been started on folic acid supplementation He has recently got CT of abdomen and pelvis which does show no acute intra abdominal pathology or recurrent C malignancy. CT of chest did show a 3 mm pulmonary nodule. .. Hyperlipidemia: Patient continues on atorvastatin 10 mg with good effect. Most recent lipid panel showing good control of his total cholesterol and LDL. .. Anxiety: Seems to have been much better. Has not to use much lorazepam. Colon Cancer screening: Has a history of colon cancer--> Recently had colonoscopy in 2021- repeat [address] abdomen in May of 2024 without any recurrent malignancy. Vaccines: Up-to-date with flu vaccine, COVID vaccine, pneumonia vaccine, needs up-to-date tetanus vaccine. Considering RSV vaccine Laboratory Tests 07/24/23 10/16/23 01/11/24 07:04 10:29 07:52 RBC 4.13 L 3.91 L 4.15 L Hgb 13.7 L 14.6 MCV 104.1 H Creatinine Iron 170 H % Saturation 56 H Triglycerides 178 H 248 H Cholesterol 190 192 PSA Screen Vitamin B12 825 572 Folate 3.7 L 10.2 25-OH Vitamin D To prashant Urine Microalbumin 07/18/24 07/18/24 09:37 09:42 RBC 4.14 L Hgb 14.4 MCV Creatinine 0.87 Iron % Saturation Triglycerides Cholesterol PSA Screen 1.29 Vitamin B12 432 Folate 18.5 25-OH Vitamin D To prashant 32.0 Urine Microalbumin 31.0 PFSH Medical History History of colon cancer Left sided abdominal pain History of urinary frequency Adenocarcinoma of cecum HTN (hypertension) Anemia Hyperlipidemia Surgical History S/P right colectomy History of esophagogastroduodenoscopy (EGD) History of colon resection (~2020) Hx of eye surgery H/O colonoscopy History of left inguinal hernia repair (~02/2018) Family History Father No problems noted. Mother No problems noted. Brother Cardiovascular disease Diabetes Social History Household Members: Significant Other Housing: House Are you a primary memory care director to a significant other at home: No Do you presently have visiting nurse or other home services: No Alcohol intake: current Alcohol intake frequency: 0-2 drinks per day Alcohol type: wine Patient Tobacco Use Status: Never used Tobacco e-Cigarette/Vaping Use: Never Used Second Hand Smoke Exposure: No Advance Directives Date on File: 04/12/21 service: No Current occupational status: retired Cognitive needs: No Hearing needs: No Vision needs: Yes (glasses) Questionnaire PHQ-9 Over the last 2 weeks, how often have you been bothered by any of the following problems? 1. Little interest or pleasure in doing things: not at all 2. Feeling down, depressed, or hopeless: not at all 3. Trouble falling or staying asleep, or sleeping too much: not at all 4. Feeling tired or having little energy: not at all 5. Poor appetite or overeating: not at all 6. Feeling bad about yourself - or that you are a failure or have let yourself or your family down: not at all 7. Trouble concentrating on things, such as reading the newspaper or watching television: not at all 8. Moving or speaking so slowly that other people could have noticed. Or the opposite - being so fidgety or restless that you have been moving around a lot more than usual: not at all 9. Thoughts that you would be better off or of hurting yourself in some way: not at all Total score: 0 Depression Screening Interpretation: Negative Depression Screening Done: Yes 97976 - PHQ-9 Billing: Yes Source: Developed by Drs. Joseph Riggins, Cheryl Johnson, Uche Isabel and colleagues, with an educational aurelio from [employer]. Thrive Questionnaire Date Thrive assessed: 08/04/24 I am a: Patient What is your living situation today?: I have a steady place to live Within the past 12 months, did the food you bought not last and you didn't have the money to get more?: Never true Within the past 12 months, did you worry whether your food would run out before you got money to buy more?: Never true Do you have trouble paying for medicines?: No Do you have trouble getting transportation to medical appointments?: No Do you have trouble paying your heating and electricity bill?: No Do you have trouble taking care of your child, family member or friend?: No Do you have trouble with day-to-day activities such as bathing, preparing meals, shopping, managing finances, etc.?: No Are you currently unemployed and looking for a job?: No Are you interested in more education?: No Please select the resources that you would like help with: None Currently or been in a relationship where the following occur: I choose not to answer THRIVE Score: 0 AUDIT C Alcohol Use Questionnaire (AUDIT-C) 1. How often do you have a drink containing alcohol?: 2-3 times a week 2. How many drinks containing alcohol do you have on a typical day when you are drinking?: 1 or 2 3. How often do you have six or more drinks on one occasion?: Never Total Score: 3 KEN-7 AMB Questionnaire KEN-7 Date KEN - 7 assessed: 08/04/24 Feeling nervous, anxious, or on edge: 0 = Not at all Not being able to stop or control worryin = Not at all Worrying too much about different things: 0 = Not at all Trouble relaxin = Not at all Being so restless that it is hard to sit still: 0 = Not at all Becoming easily annoyed or irritable: 0 = Not at all Feeling afraid as if something awful might happen: 0 = Not at all Total KEN-7 score (0-4 normal; 5-9 mild; 10-14 moderate; 15-21 severe): 0 Source: Developed by Drs. Joseph Riggins, Cheryl Johnson, Uche Isabel and colleagues, with an educational aurelio from [employer]. KEN-7 Assessment Billing KEN-7 Assessment Tool: KEN-7 Assessment 28840 Review of Systems Const Denies body aches, Denies chills, Denies excessive sweating, Denies fatigue, Denies fever(s) and Denies headache(s) Eyes Denies blurry vision ENT Denies dysphagia, Denies vertigo, Denies dizziness, Denies headache(s), Denies hearing loss and Denies tinnitus Card Denies chest pain, Denies chest pain with activity, Denies syncope, Denies irregular heart rhythm and Denies dyspnea Resp Denies chest congestion, Denies cough, Denies hemoptysis, Denies dyspnea and Denies wheezing GI Denies abdominal pain, Denies melena, Denies hematochezia, Denies coffee ground emesis, Denies dysphagia, Denies diarrhea, Denies nausea and Denies vomiting Denies difficulty urinating, Denies dysuria, Denies urinary frequency, Denies urinary hesitancy and Denies urinary urgency Musc Denies arthralgias, Denies limited range of motion, Denies muscle cramps and Denies muscle weakness Skin/Breast Denies rash and Denies skin ulcer Neuro Denies Abnormal speech present, Denies confusion, Denies vertigo, Denies dizziness, Denies syncope, Denies headache(s), Denies memory loss and Denies seizure-like activity Psych Denies anxiety, Denies confusion, Denies depression, Denies memory loss, Denies panic attacks and Denies paranoia Endo Denies excessive sweating, Denies fatigue, Denies flushing, Denies polydipsia and Denies polyuria Aller/Immun Denies wheezing Physical exam (Primary Care) Vital Signs: Last Vital Signs Temp 97.1 F 08/04/24 09:19 Pulse 106 H 08/04/24 09:19 BP 128/70 08/04/24 09:19 Pulse Ox 98 08/04/24 09:19 Oxygen Delivery Method Room Air 08/04/24 09:19 BMI result Body Mass Index 19.8 Tobacco/Smoking Status: Tobacco use Status Tobacco use date assessed 08/04/24 08/04/24 09:21 Patient Tobacco Use Status Never used Tobacco 08/04/24 09:21 e-Cigarette/Vaping Use Never Used 08/04/24 09:21 PHQ-9: PHQ-9 Score PHQ-9: Total score 0 08/04/24 09:21 Depression Screening Interpretation: Negative Thrive Assessment: Date of Thrive Assessment Date Thrive assessed 08/04/24 08/04/24 09:21 Currently or been in a relationship where the following occur: I choose not to answer Const General: cooperative, comfortable, no acute distress, alert and awake; No confusion Orientation/consciousness: oriented to person, oriented to place, patient oriented x3 and No confusion HENMT Head: Yes normocephalic Ears: external ears normal and TM's normal bilaterally Face and sinus: No sinus tenderness Mouth: Normal oral and palatal mucosa present and tongue normal Teeth and gingiva: dentition normal and gingiva normal Throat: Yes posterior oropharynx normal, Yes tonsils normal and Yes uvula midline Eyes Conjunctivae: conjunctivae normal Sclerae: sclerae normal Pupils: Equal, round and reactive pupils present EOM: EOMs intact bilaterally Direct Ophthalmoscopy: No no photophobia Neck Neck: Yes no lymphadenopathy, No tender and Yes no JVD Thyroid: Thyroid normal Carotids: no bruits Chest Chest palpation & inspection: no tenderness Resp Effort & Inspection: normal respiratory effort, no audible wheezes, not labored and no stridor Auscultation: no crackles, no rales, no rhonchi and no wheezes Cardio Jugular venous distension: no JVD Rate: regular rate, not bradycardic and not tachycardic Rhythm: regular rhythm Bruits: no carotid bruits Peripheral pulses: Peripheral pulses 2+ throughout GI Inspection: Yes normal to inspection, No abdominal wall ecchymosis and No visible herniation Palpation (GI): Soft to palpation, nontender, no guarding, not rigid and No hepatosplenomegaly present Auscultation: normoactive bowel sounds General: Yes no CVA tenderness Back/Spine/Pelvis Back: no CVA tenderness and No back tenderness Cervical Spine: cervical ROM normal Thoracic/Lumbar Spine: thoracic and lumbar spine normal to inspection, straight leg raise negative bilaterally, No thoraco-lumbar ROM limited and No lumbar spinal tenderness Skin Lesions: no lesions Rashes: no rashes Wounds: no wounds Neuro General: oriented to person, oriented to place, patient oriented x3, CN's II-XI intact bilaterally and No confusion Cranial nerves: Yes Equal, round and reactive pupils present and Yes Normal accommodation reflex present Cognition (Neuro): normal cognition Speech: No Abnormal speech present Gait exam (Neuro): Normal gait present Motor exam (neuro): 5/5 motor strength present throughout Extrem Right upper extremity: full ROM; no cyanosis Left upper extremity: full ROM; no cyanosis Right lower extremity: no edema Left lower extremity: no edema Psych Appearance: grossly normal Mental Status: mental status grossly normal Affect: normal affect Attitude: cooperative Thought process: Normal thought process present Coding Level of Care Code Est Pt Prev Care >65y(96501) Diagnoses Annual physical exam Z00.00 Iron deficiency anemia due to chronic blood loss D50.0 Anemia type: iron deficiency Iron deficiency anemia type: chronic blood loss Primary hypertension I10 Hypertension type: primary hypertension Mixed hyperlipidemia E78.2 Hyperlipidemia type: mixed hyperlipidemia Adenocarcinoma of cecum C18.0 Additional Codes KEN-7 Assessment Billing - KEN-7 Assessment Tool: KEN-7 Assessment 52669 ([id number]) PHQ-9 - 06115 - PHQ-9 Billing: Yes ([id number]) Assessment & Plan Assessment & Plan (1) Annual physical exam: Code(s): Z00.00 - Encounter for general adult medical examination without abnormal findings Category: Medical Plan: as per HPI (2) Anemia: Code(s): D64.9 - Anemia, unspecified Category: Medical Qualifiers: Anemia type: iron deficiency Iron deficiency anemia type: chronic blood loss Qualified Code(s): D50.0 - Iron deficiency anemia secondary to blood loss (chronic) Plan: Continues to microcytic anemia. Continues on folic acid and B12 supplementation. Of note does have 2-3 glasses of wine per day with meals. (3) HTN (hypertension): Code(s): I10 - Essential (primary) hypertension Category: Medical Qualifiers: Hypertension type: primary hypertension Qualified Code(s): I10 - Essential (primary) hypertension Plan: Patient's blood pressure acceptable today in office. Will continue current dose of amlodipine with goal blood pressure to remain below 140/90 (4) Hyperlipidemia: Code(s): E78.5 - Hyperlipidemia, unspecified Category: Medical Qualifiers: Hyperlipidemia type: mixed hyperlipidemia Qualified Code(s): E78.2 - Mixed hyperlipidemia Plan: Patient's most recent lipid panel showing excellent control of his total cholesterol and LDL. Will continue current dose of statin therapy with goal LDL to remain below 130 (5) Adenocarcinoma of cecum: Comment: w/colon resection 2020 Code(s): C18.0 - Malignant neoplasm of cecum Category: Medical Plan: Has a history of adenocarcinoma of cecum. He is status post resection and anastomosis. Recent CT of abdomen pelvis showing no recurrence of malignancy. Anastomosis site functioning well. Orders: Orders Comprehensive [place]. Panel Fast Today I10 - Essential (primary) hypertension Vitamin B12 and Folate Today D50.0 - Iron deficiency anemia secondary to blood loss (chronic), E53.8 - Deficiency of other specified B group vitamins Vitamin D 25-OH Total Today R79.89 - Other specified abnormal findings of blood chemistry Complete Blood Count no Diff Today D50.0 - Iron deficiency anemia secondary to blood loss (chronic) Lipid Panel Today E78.2 - Mixed hyperlipidemia Medications: Refilled lorazepam 0.5 mg PO BID 7 days PRN 14 tabs 1RF sleep MDD 1 mg F41.9 - Anxiety disorder, unspecified Patient Instructions: Goal: Blood pressure to remain below 140/90, LDL to be below 130 Barriers: Adherence to physical activity and healthy eating habits
== END 2024-08-04 09:47 | disposition home or self-care (01) ==
PROVIDERS: PCP Physician Assistant; Visit Provider Physician Assistant
DX: Z00.00 Encounter for general adult medical examination without abnormal findings (principal); D50.0 Iron deficiency anemia secondary to blood loss (chronic); I10 Essential (primary) hypertension; E78.2 Mixed hyperlipidemia; C18.0 Malignant neoplasm of cecum

== ENCOUNTER → 2024-08-04 09:08 | Outpatient (BNVA) | payer MEDICARE, SELFPAY | PROVIDERS: PCP Physician Assistant; Visit Provider Physician Assistant | DX: Z00.00 Encounter for general adult medical examination without abnormal findings (principal); D50.0 Iron deficiency anemia secondary to blood loss (chronic); E78.2 Mixed hyperlipidemia; I10 Essential (primary) hypertension; C18.0 Malignant neoplasm of cecum | CPT/HCPCS: 96127; 99397 ==

== ENCOUNTER 2025-03-13 08:50 | Emergency (ER) | payer MEDICARE, SELFPAY ==
--- NOTE | ~2025-03-13 | CT_ITS ---
EXAMINATION: CT CERVICAL SPINE WITHOUT CONTRAST CLINICAL INFORMATION: Fall, neck pain. COMPARISON: 08/09/2022. TECHNIQUE: Spiral CT imaging of the cervical spine performed in axial plane without contrast. Multiplanar reformatted images were constructed from the axial data set. This CT examination was performed using dose optimization techniques as appropriate, variously including the following: *Automated exposure control *Adjustment of mA and/or kV according to patient size (this includes techniques or standardized protocols for targeted exams where dose is matched to indication/reason for exam; i.e. extremities or head) *Use of iterative reconstruction technique FINDINGS: CORONAL ALIGNMENT: -Normal. SAGITTAL ALIGNMENT: -Normal lordosis. -There is a 2 mm degenerative appearing anterolisthesis of C4 on C5, and C6 on C7. -There is no evidence of traumatic subluxation. C1-C2 AND CRANIOCERVICAL JUNCTION: -Intact and normally aligned. There are mild to moderate degenerative changes in the anterior atlantoaxial joint. VERTEBRAL BODIES AND FACETS: -There is no fracture, compression deformity, or suspicious bone lesion. There is no evidence of traumatic subluxation. -The facets spanning C3-C5 are fused bilaterally. Otherwise normal facet alignment. Multilevel degenerative hypertrophic facet change. DISCS: -Moderate to severe multilevel disc degeneration most significant C5-6 and C6-7, where there is disc phenomenon and sclerosis of the endplates. CENTRAL CANAL: -No evidence of high-grade central canal narrowing or large disc herniation allowing for modality limitations. PREVERTEBRAL AND PARAVERTEBRAL SOFT TISSUES: -No prevertebral or paravertebral soft tissue swelling or edema. No abnormal fluid collection. There is normal partially imaged thyroid. No mass or abnormal lymph nodes within the neck. There are mild to moderate left greater than right carotid bulb calcifications. LUNG APICES: -Only minimally imaged. Pleural calcifications present with scarring. CT/CT cervical spine wo IV con IMPRESSION: 1. No CT evidence of acute cervical spine fracture or injury. 2. Advanced degenerative spondylosis of the cervical spine. Electronically signed by: Leonidas Paris MD 03/13/2025 11:08 AM EDT
--- NOTE | ~2025-03-13 | CT_ITS ---
EXAMINATION: CT HEAD WITHOUT IV CONTRAST HISTORY: fall. TECHNIQUE: Unenhanced helical CT of the head was performed per standard departmental protocol. Coronal and sagittal reformats of the head were also evaluated. One or more of the following techniques was used for dose reduction: Automated exposure control, adjustment of the mA and/or kV according to patient size, use of iterative reconstruction technique. DLP: 720 mGy-cm COMPARISON: Comparison is made with the prior examination dated 09/01/2022. FINDINGS: BRAIN: There is diffuse prominence of the ventricular system and cortical sulci, consistent with atrophy. Periventricular and subcortical white matter hypodensities are noted which are nonspecific, but often seen in the setting of small vessel ischemic disease. There is no mass effect or midline shift. No intra- or extra-axial fluid collections are identified. SINUSES: The visualized paranasal sinuses are clear. The mastoid air cells and middle ear cavities are well pneumatized. ORBITS: The visualized orbits are unremarkable. BONES/SOFT TISSUES: The extracranial soft tissues are unremarkable. The calvarium is intact. No suspicious lytic or sclerotic lesions. CT/CT head/brain wo IV con IMPRESSION: No acute intracranial abnormality. Electronically signed by: Joseph Winkler MD 03/13/2025 11:04 AM EDT
--- NOTE | ~2025-03-13 | XR_ITS ---
EXAMINATION: XR LUMBOSACRAL SPINE CLINICAL INFORMATION: fall COMPARISON: September 10 2011 TECHNIQUE: Three views of the lumbosacral spine. FINDINGS: Severe atherosclerotic calcifications are present in the abdominal aorta and proximal common iliac arteries . There are 5 nonrib-bearing lumbar stones. There is mild convex right curvature of the thoracal lumbar junction. There is mild wedging of the T12 vertebral body which was present on the prior examination and likely physiologic in nature. There is mild multilevel disc space narrowing with anterior endplate osteophytes throughout the lumbar spine and facet sclerosis at L4-5 and L5-S1. Degenerative changes are most advanced at L5-S1. XR/XR lumbar spine 2-3V IMPRESSION: There is mild wedging at T12 which was present on prior imaging and most likely physiologic in nature. 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 Severe atherosclerotic disease in the abdominal aorta. Electronically signed by: Spencer Velasquez MD 03/13/2025 10:39 AM EDT
--- NOTE | ~2025-03-13 | XR_ITS ---
EXAMINATION: XR THORACIC SPINE CLINICAL INFORMATION: fall COMPARISON: None available. TECHNIQUE: 3 views of the thoracic spine were obtained. FINDINGS: There is mild convex left curvature of the thoracic spine. There is mild disc space narrowing throughout the thoracic spine. There is mild wedging at T12, likely physiologic in nature. XR/XR thoracic spine 3V IMPRESSION: Mild wedging of T12 is likely physiologic in nature. Correlate for focal tenderness. Electronically signed by: Spencer Velasquez MD 03/13/2025 10:40 AM EDT
[2025-03-13 08:55] VITALS: BP 176/82; PULSE 84; RESP 16; TEMP 37; O2SAT 98; BMI 20.3
--- NOTE | 2025-03-13 09:57 | ED.GENADULT ---
HPI - General Adult General Chief complaint: Back Pain/Injury Stated complaint: Severe back pain Time Seen by Provider: 03/13/25 09:46 Source: patient Mode of arrival: ambulatory Limitations: no limitations History of Present Illness ED Provider: Luis Daniel Sanchez HPI narrative: 84 yold male with pmh of HTN presents to the ED for low back pain after fall on sunday. Patient states he was walking who any slipped on a slipper and fell onto his back and then head. Patient denies any loss of consciousness. Patient denies any nausea vomiting abdominal pain, chest pain, shortness of breath, urinary/bowel incontinence, paralysis of lower extremities, rectal bleeding, fever, chill or neck pain since fall. Patient denies being on blood thinners Related Data Home Medications ?Medication ?Instructions ?Recorded ?Confirmed omeprazole 20 mg capsule,delayed 20 mg PO DAILY 09/07/21 10/27/24 release Previous Rx's ?Medication ?Instructions ?Recorded docusate sodium 100 mg capsule 100 mg PO BID PRN constipation #30 07/01/21 (Colace) caps tamsulosin 0.4 mg capsule (Flomax) 0.4 mg PO BEDTIME #90 caps 04/25/22 Held on 10/05/22. Instructions: Doctor's Order loperamide 2 mg capsule 2 mg PO Q8H PRN loose stool 7 days 03/29/23 #21 caps barium sulfate 2 % (w/v) oral 450 ml PO DIRECTED #900 mL 05/23/23 suspension (Readi-Cat 2) sennosides 8.6 mg-docusate sodium 2 tab-cap (2 x 8.6-50 mg) PO 03/03/24 50 mg capsule (Senna Plus) BEDTIME #60 caps ascorbic acid (vitamin C) 250 mg 250 mg PO DAILY 90 days #90 tabs 05/15/24 tablet cholecalciferol (vitamin D3) 50 50 mcg PO DAILY 90 days #90 caps 08/04/24 mcg (2,000 unit) capsule sertraline 25 mg tablet 25 mg PO DAILY 90 days #90 tabs 11/06/24 amlodipine 5 mg tablet (Norvasc) 5 mg PO DAILY htn 90 days #90 tabs 12/15/24 atorvastatin 10 mg tablet (Lipitor) 10 mg PO DAILY #90 tabs 12/15/24 finasteride 5 mg tablet (Proscar) 5 mg PO DAILY #90 tabs 12/15/24 simethicone 125 mg capsule (Gas-X 125 mg PO BID-QID PRN abdominal 01/28/25 Extra Strength) distention 30 days #120 caps cyanocobalamin (vitamin B-12) 1,000 mcg PO DAILY #90 tabs 02/02/25 1,000 mcg tablet (Vitamin B-12) folic acid 1 mg tablet 1 mg PO DAILY #90 tabs 02/10/25 lorazepam 0.5 mg tablet 0.5 mg PO BID PRN sleep 7 days #14 03/09/25 tabs cyclobenzaprine 10 mg tablet 10 mg PO BEDTIME PRN muscle spasm 03/13/25 #10 tabs naproxen 500 mg tablet 500 mg PO BID PRN pain #14 tabs 03/13/25 Allergies Allergy/AdvReac Type Severity Reaction Status Date / Time lisinopril Allergy Severe lip Verified 03/13/25 08:58 swelling hydrochlorothiazide AdvReac Severe dizziness/ Verified 03/13/25 08:58 hyponatremia Review of Systems Review of Systems: Low back pain fall Yes all other systems are reviewed and are negative [facility] Past Medical History Medical History History of colon cancer Left sided abdominal pain History of urinary frequency Adenocarcinoma of cecum HTN (hypertension) Anemia Hyperlipidemia Surgical History S/P right colectomy History of esophagogastroduodenoscopy (EGD) History of colon resection (~2020) Hx of eye surgery H/O colonoscopy History of left inguinal hernia repair (~02/2018) Family History Family History Father No problems noted. Mother No problems noted. Brother Cardiovascular disease Diabetes Social History Social History Household Members: Significant Other Housing: House Are you a primary medical care evaluation specialist to a significant other at home: No Do you presently have visiting nurse or other home services: No Alcohol intake: current Alcohol intake frequency: 0-2 drinks per day Alcohol type: wine Patient Tobacco Use Status: Never used Tobacco e-Cigarette/Vaping Use: Never Used Second Hand Smoke Exposure: No Advance Directives Date on File: 04/12/21 service: No Current occupational status: retired Cognitive needs: No Hearing needs: No Vision needs: Yes (glasses) Physical Exam ED Vital Signs: Vital Signs - 24 hr 03/13/25 08:55 03/13/25 12:32 Temperature 98.6 F 98.6 F Pulse Rate 84 84 Respiratory Rate 16 16 Blood Pressure 176/82 H 176/82 H Pulse Oximetry 98 98 Oxygen Delivery Method Room Air Room Air BMI result Body Mass Index 20.3 Const General: cooperative, healthy appearing, comfortable, no acute distress, well developed, alert and awake Orientation/consciousness: patient oriented x3 HENMT Head: Yes normal to inspection, Yes No palpable skull fracture present, Yes normocephalic and Yes atraumatic Eyes General: appearance normal, both eyes and all related structures Neck Neck: Yes normal visual inspection, Yes full ROM, Yes no lymphadenopathy, Yes no meningeal signs, Yes trachea midline, Yes supple, No anterior neck swelling and No tender Chest Chest palpation & inspection: normal inspection of the chest and normal palpation of entire chest wall Resp Effort & Inspection: normal respiratory effort and able to speak in complete sentences Auscultation: clear to auscultation bilaterally Cardio Jugular venous distension: no JVD Heart sounds: S1 normal heart sound present and S2 normal heart sound present GI Inspection: Yes normal to inspection Palpation (GI): Soft to palpation, not firm, nontender, no guarding and not rigid General: Yes no CVA tenderness Back/Spine/Pelvis Back: no CVA tenderness and back tenderness (Lumbar spine) Skin General skin exam: no rashes or lesions noted, elasticity normal and turgor normal Neuro General: patient oriented x3, gait normal, tone normal, moves all extremities, Normal light touch and pain sensation, no meningeal signs, no focal motor deficits, CN's II-XI intact bilaterally and normal sensation to monofilament Extrem General: Yes normal to inspection, Yes full ROM and Yes capillary refill normal Psych Appearance: grossly normal, well kempt and not disheveled Medications Administered Discontinued Medications Generic Name Dose Route Start Last Admin Trade Name Freq PRN Reason Stop Dose Admin Acetaminophen 650 mg 03/13/25 10:03 03/13/25 10:43 Acetaminophen 325 Mg Tablet PO 03/13/25 10:04 650 mg ONCE ONE Administration Ketorolac Tromethamine 30 mg 03/13/25 11:24 03/13/25 11:38 Ketorolac Tromethamine 30 Mg/Ml Vial IM 03/13/25 11:25 30 mg ONCE ONE Administration Medical Decision Making Medical Decision Making [facility] Narrative: 84 year male presents to ED for low back pain since falling on Sunday. Patient denies any urinary/bowel incontinence. Patient denies any paralysis of lower extremities or history of any IV drug use or immunocompromise diseases. Tylenol ordered x-rays ordered. 12: 01pm: Images are normal. Negative for brain bleed or skull fracture. Negative for neck fracture. Negative for spinal fracture. Patient alert oriented x3 with normal gait. Patient given copy of labs informed to return to the ED immediately. Not suspecting AK, cauda equinus syndrome, epidural abscess, osteomyelitis, kidney stones, pneumothorax, hemothorax, intra-abdominal traumatic etiology, or any life-threatening etiology. Patient explained worrisome signs and informed to return to the ED. patient given copy of images. Differential Diagnosis Differential Diagnoses: The differential diagnosis associated with the presentation includes (Fracture brain bleed neck fracture) Admission/Observation Consideration of admission/observation: Escalation of care including admission/observation considered Independent Interpretation I performed an independent interpretation of an: Plain X-Ray Radiology Impression Discussion of test interpretation with radiology: I have reviewed the radiologist's reading. Independent Historian Clinical information obtained from an independent historian. History obtained from or confirmed by: Other (patient) Prescription Management I considered prescription management with: Pain Medication Discharge Plan Discharge Clinical Impression: Fall, Back pain Patient Disposition: Home, Self-Care Instructions: Fall Prevention for Older Adults (ED), Back Pain (ED) Additional Instructions: Return to the ED immediately for any severe back pain, urinary/bowel incontinence, inability to walk, numbness/paresthesia genitals, fever, chills abdominal pain, nausea, vomiting, headache, neck pain, chills, or any other concerning symptoms. Recommend follow up with primary care provider. Prescriptions: New naproxen 500 mg tablet 500 mg PO BID PRN (Reason: pain) Qty: 14 0RF cyclobenzaprine 10 mg tablet 10 mg PO BEDTIME PRN (Reason: muscle spasm) Qty: 10 0RF Rx Instructions: side effect is drowsiness. Do not take at work or while driving. No Action tamsulosin [Flomax] 0.4 mg capsule 0.4 mg PO BEDTIME Qty: 90 2RF Senna Plus 8.6-50 mg capsule 2 tab-cap PO BEDTIME Qty: 60 1RF ascorbic acid (vitamin C) 250 mg tablet 250 mg PO DAILY 90 Days Qty: 90 3RF cholecalciferol (vitamin D3) 50 mcg (2,000 unit) capsule 50 mcg PO DAILY 90 Days Qty: 90 3RF sertraline 25 mg tablet 25 mg PO DAILY 90 Days Qty: 90 2RF amlodipine [Norvasc] 5 mg tablet 5 mg PO DAILY 90 Days Qty: 90 1RF atorvastatin [Lipitor] 10 mg tablet 10 mg PO DAILY Qty: 90 1RF finasteride [Proscar] 5 mg tablet 5 mg PO DAILY Qty: 90 2RF simethicone [Gas-X Extra Strength] 125 mg capsule 125 mg PO BID-QID PRN (Reason: abdominal distention) 30 Days Qty: 120 0RF cyanocobalamin (vitamin B-12) [Vitamin B-12] 1,000 mcg tablet 1,000 mcg PO DAILY Qty: 90 0RF folic acid 1 mg tablet 1 mg PO DAILY Qty: 90 0RF lorazepam 0.5 mg tablet 0.5 mg PO BID MDD 1 mg PRN (Reason: sleep) 7 Days Qty: 14 0RF Readi-Cat 2 2 % (w/v) Suspension 450 ml PO DIRECTED Qty: 900 0RF Rx Instructions: One bottle (450 ml) at bedtime and 1 bottle at 07:00 in the morning of CT scan docusate sodium [Colace] 100 mg capsule 100 mg PO BID PRN (Reason: constipation) Qty: 30 0RF loperamide 2 mg capsule 2 mg PO Q8H PRN (Reason: loose stool) 7 Days Qty: 21 0RF omeprazole 20 mg capsule,delayed release(DR/EC) 20 mg PO DAILY Referrals: Rocael Reeves PA-C [Primary Care Provider, Internal Medicine] - 2 days Referral Note: Fall back pain Clinical Impression: Back pain; Fall Interventions: ED Discharge Assessment Last Done: 03/13/25 12:32 Discharge Date/Time: 03/13/25 12:42 Print Language: Prydeinig
--- OUTSIDE RECORDS SUMMARY | 2025-03-13 10:01 | XMS_ITS | Clinical Summary ---
Author Organization [facility] Address [address] [place], [place] [id number] Phone Care Team Providers Care Shoemaking Finisher Name Role Phone Rocael Reeves Primary Care Provider + Allergies No known active allergies Medications amLODIPine (NORVASC) 5 MG tablet Take 1 tablet by mouth every morning. 12/20/2023 Active ascorbic acid, vitamin C, (VITAMIN C) 250 MG tablet Take 1 tablet by mouth every morning. 02/17/2024 Active atorvastatin (LIPITOR) 10 MG tablet Take 1 tablet by mouth every morning. 12/25/2023 Active VITAMIN B-12 1000 MCG tablet Take 1 tablet by mouth every morning. 02/15/2024 Active ergocalciferol, vitamin D2, 50 mcg (2,000 unit) Cap Take 1 capsule by mouth every morning. 02/05/2024 Active finasteride (PROSCAR) 5 mg tablet Take 1 tablet by mouth every morning. 12/28/2023 Active folic acid (FOLVITE) 1 MG tablet Take 1 tablet by mouth every morning. 01/21/2024 Active LORazepam (ATIVAN) 0.5 MG tablet TAKE ONE TABLET BY MOUTH TWICE A DAY NEEDED FOR SLEEP FOR 7 DAYS; MAX DAILY DOSE: 1MG. 01/24/2024 Active omeprazole (PRILOSEC) 40 MG capsule 1 capsule 30 minutes before morning meal Orally Once a day for 30 day(s) 02/05/2024 Active sertraline (ZOLOFT) 25 MG tablet Take 1 tablet by mouth every morning. 01/31/2024 Active albuterol 90 mcg/actuation inhaler Inhale 2 puffs into the lungs every 6 (six) hours as needed for wheezing. 8 g 03/03/2024 Active inhaler spacing device (AEROCHAMBER,MICHELLE ZAMORA) Spcr Inhale 1 each into the lungs every 4 (four) hours as needed. 1 each 03/03/2024 Active Active Problems No known active problems Immunizations Immunization Administration Dates Next Due Influenza High-Dose Quadriva lent Preservative Free IM 04/30/2023 Influenza High-Dose Trivalen t Preservative Free IM 07/28/2019 Influenza Quadrivalent Adjuv anted Preservative Free IM 05/10/2022,05/03/2021,03/29/2020 Pneumococcal conjugate PCV13 07/28/2019 Td (adult),2 Lf Tetanus Toxo id, PF, Adsorbed 08/01/2023 Social History Tobacco Use Types Packs/Day Years Used Date Smoking Tobacco: Never Smokeless Tobacco: Never Tobacco Cessation:Counseling Given: Not Answered Education Answer Date Recorded Are you interested in more education? Not on hung e 02/27/2024 Are you concerned about learning? Not on file 02/27/2024 No 02/27/2024 No 02/27/2024 Digital Access Answer Date Recorded No 02/27/2024 No 02/27/2024 Reliable internet access at home? Not on file 02/27/2024 Device with a working camera? Not on file Sex and Gender Information Value Date Recorded Sex Assigned at Not on file Legal Sex Male 4:52 PM EDT Gender Identity Not on file Sexual Orientation Not on file Last Filed Vital Signs Vital Sign Reading Time Taken Comments Blood Pressure 138/81 03/03/2024 8:08 AM EDT Pulse 89 03/03/2024 8:08 AM EDT Temperature 36.7 C (98.1 F) 03/03/2024 8:08 AM EDT Respiratory Rate 18 03/03/2024 8:08 AM EDT Oxygen Saturation 99% 03/03/2024 8:08 AM EDT Inhaled Oxygen Concentration - - Weight - - Height - - Body Mass Index - - Plan of Treatment Health Maintenance Due Date Last Done Comments DEPRESSION SCREENING 1954 ZOSTER VACCINES (1 of 2) 1992 RSV VACCINE (1 - 1-dose 75+ series) 2017 PNEUMOCOCCAL VACCINES (50+ years) (2 of 2 - PPSV23) 07/28/2020 07/28/2019 COVID-19 VACCINE (6 - 2024-25 season) 2024 04/30/2023, 06/06/2022, 07/04/2021, Additional history exists INFLUENZA VACCINE (#1) 2025 , 05/10/2022, 05/03/2021, Additional history exists Adult Td,Tdap Booster 08/01/2033 08/01/2023 HEPATITIS A VACCINES Aged Out No long er eligible based on patient's age to complete this topic HIB VACCINES Aged Out No longer eligi ble based on patient's age to complete this topic MENINGOCOCCAL VACCINES (ACWY) Aged Out No longer eligible based on patient's age to complete this topic MENINGOCOCCAL VACCINES (B) Aged Out N o longer eligible based on patient's age to complete this topic Medical Devices Not on file Insurance [employer] HMO REPLACEMENT [facility] MEDICARE HMO REPLACEMENT [address] [place] [address] [address] [place] [place] [address] [address]MO [address] [place] [address] MEDICARE HMO REPLACEMENT Care Teams Shoemaking Finisher Relationship Specialty Start Date End Date Rcoael Reeves PA [address] [place] [address] PCP - General Physician Gas Operator 03/03/24 Additional Source Comments The information contained in this document represents components of the legal health record. It is not the complete legal health record.[facility]
[2025-03-13 12:32] VITALS: BP 176/82; PULSE 84; RESP 16; TEMP 37; O2SAT 98
== END 2025-03-13 12:42 | disposition home or self-care (01) ==
PROVIDERS: Emergency Provider Emergency Medicine; PCP Physician Assistant
DX: M54.50 Low back pain, unspecified (principal); I10 Essential (primary) hypertension; W01.0XXA Fall on same level from slipping, tripping and stumbling without subsequent striking against object, initial encounter; Y93.9 Activity, unspecified; Y92.9 Unspecified place or not applicable; Y99.9 Unspecified external cause status
CPT/HCPCS: 70450; 72072; 72100; 72125; 96372; 99284; J1885

== ENCOUNTER → 2025-03-13 10:03 | Outpatient (BNV) | payer MEDICARE, SELFPAY | PROVIDERS: Emergency Provider Emergency Medicine; PCP Physician Assistant; Visit Provider Radiology Diagnostic Radiology | DX: M47.12 Other spondylosis with myelopathy, cervical region (principal); I67.82 Cerebral ischemia; M47.816 Spondylosis without myelopathy or radiculopathy, lumbar region; M51.34 Other intervertebral disc degeneration, thoracic region | CPT/HCPCS: 70450; 72072; 72100; 72125 ==

== ENCOUNTER 2025-03-15 04:50 | Emergency (ER) | payer MEDICARE, SELFPAY ==
[2025-03-15] VITALS (10 sets, daily range): BP systolic 116–153; BP diastolic 61–82; PULSE 84–114; RESP 14–18; TEMP 36.6–37.4; O2SAT 95–98; BMI 20.2
--- NOTE | ~2025-03-15 | CT_ITS ---
CLINICAL HISTORY: AP with mid back pain, fall, ditended abdomen CT abdomen and pelvis with contrast Comparison: CT - CT ABDOMEN PELVIS W IV CON - 03/15/25 09:[address]/REG/SR - CT ABDOMEN PELVIS W IV CON - 06/10/24 08:25 EST Findings: No consolidation or effusion. There is gallbladder sludge. There is no gallbladder wall thickening. The liver is otherwise unremarkable. There are small bilateral renal cysts. Stable tiny splenic lesion. The rest of the solid organs are unremarkable. The patient is status post right hemicolectomy with right lower quadrant primary anastomosis. The small bowel proximal to the anastomosis is dilated with air-fluid levels noted suggestive of mechanical obstruction though there is no discrete obstructing lesion at the primary anastomosis. The colon is mildly dilated through the left upper abdomen where there is a narrow contracted segment. An obstructing mass is not identified. The stomach is unremarkable. The remaining colon demonstrates diverticulosis without evidence of diverticulitis. Pelvic contents unremarkable. Normal appendix. The bones are intact. IMPRESSION: 1. Dilatation of the small bowel to the level of the anastomosis without a discrete obstructing lesion. Findings may reflect ileus. 2. Gallbladder sludge. 3. Small bilateral renal cysts. 4. Colonic diverticulosis. This document has been electronically signed by: Adryan Sigala MD on 03/15/2025 10:21:17
--- NOTE | 2025-03-15 05:03 | PC.NURSE ---
pt recent;y seen here for lower back/ sciatica pain. Pt states medication prescribed did not help. EMS gave 60 mcg of fentanyl and this seemed to help per pt.
--- OUTSIDE RECORDS SUMMARY | 2025-03-15 05:34 | XMS_ITS | Clinical Summary ---
Author Organization [facility] Address [address] [place], [place] [phone] Phone Care Team Providers Care Roustabout Name Role Phone Rocael Reeves Primary Care [...] Insurance [employer] MED[employer] HMO REPLACEMENT [facility] MEDICARE [place] [address] [place] [address] [place] [address] [place] [address] [address] [place] [place] [address] MEDICARE HMO REPLACEMENT Care Teams Roustabout Relationship Specialty Start Date End Date Rocael Reeves PA [address] [place] [address] PCP - General Physician Behavior Therapist 03/03/24 Additional Source Comments The information contained in this document represents components of the legal health record. It is not the complete legal health record.[facility]
--- NOTE | 2025-03-15 07:44 | PC.NURSE ---
late entry from 709, report was taken from previous rn pt is resting comfortably currently. he is caox4, in no distress awaiting initial md eval. pt reports no change in bowel or bladder patterns. his abd is mildly distended, pt reports this is not new.
--- NOTE | 2025-03-15 08:05 | ED_ITS ---
HPI - Back Pain/Injury General Chief Complaint: Back Pain/Injury Stated Complaint: Sciatic pain Time Seen by Provider: 03/15/25 07:17 Source: patient and EMS Mode of arrival: EMS Limitations: no limitations History of Present Illness ED Provider: HPI Narrative: 84-year-old male presenting with worsening mid back pain but also reporting abdominal pain, he was seen here recently had a nonsyncopal fall, that point he had x-rays, imaging of the cervical spine and brain, was discharged home and he states has had a hard time ambulating, no further falls, he lives with his , has had a hard time getting I am going to the bathroom pain is mid back only, but also radiates into the anterior abdomen does not report obstipation or hematuria no chest pain or shortness of breath. Did not report numbness in the groin or lower extremities. MD elicited complaint: back pain and back injury Related Data Home Medications ?Medication ?Instructions ?Recorded ?Confirmed omeprazole 20 mg capsule,delayed 20 mg PO DAILY 03/15/25 release lorazepam 0.5 mg tablet 0.5 mg PO BID PRN insomnia 0 03/15/25 03/15/25 sennosides 8.6 mg-docusate sodium 2 tab-cap PO BEDTIME PRN 03/15/25 03/15/25 50 mg capsule (Senna Plus) Constipation Previous Rx's ?Medication ?Instructions ?Recorded docusate sodium 100 mg capsule 100 mg PO BID PRN const ipation #30 07/01/21 (Colace) caps tamsulosin 0.4 mg capsule (Flomax) 0.4 mg PO BEDTIME # 90 caps 04/25/22 Held on 10/05/22. Instructions: Doctor's Order loperamide 2 mg capsule 2 mg PO Q8H PRN loose stool 7 days 03/29/23 #21 caps ascorbic acid (vitamin C) 250 mg 250 mg PO DAILY 90 da ys #90 tabs 05/15/24 tablet cholecalciferol (vitamin D3) 50 50 mcg PO DAILY 90 day s #90 caps 08/04/24 mcg (2,000 unit) capsule sertraline 25 mg tablet 25 mg PO DAILY 90 days #90 t abs 11/06/24 amlodipine 5 mg tablet (Norvasc) 5 mg PO DAILY htn 90 days #90 tabs 12/15/24 atorvastatin 10 mg tablet (Lipitor) 10 mg PO DAILY #90 tabs 12/15/24 finasteride 5 mg tablet (Proscar) 5 mg PO DAILY #90 ta bs 12/15/24 simethicone 125 mg capsule (Gas-X 125 mg PO BID-QID IN N abdominal 01/28/25 Extra Strength) distention 30 days #120 caps cyanocobalamin (vitamin B-12) 1,000 mcg PO DAILY #90 t abs 02/02/25 1,000 mcg tablet (Vitamin B-12) folic acid 1 mg tablet 1 mg PO DAILY #90 tabs 02/10 naproxen 500 mg tablet 500 mg PO BID PRN pain #14 t abs 03/13/25 Allergies Allergy/AdvReac Type Severity Reaction Status Date / Time lisinopril Allergy Severe lip Verified 03/15/25 04:58 swelling hydrochlorothiazide AdvReac Severe dizziness/ Verified 03/15/25 04:58 hyponatremia Review of Systems 2 Constitutional: Constitutional: Reports as per [facility] Past Medical History Medical History History of colon cancer Left sided abdominal pain History of urinary frequency Adenocarcinoma of cecum HTN (hypertension) Anemia Hyperlipidemia Surgical History S/P right colectomy History of esophagogastroduodenoscopy (EGD) History of colon resection (~2020) Hx of eye surgery H/O colonoscopy History of left inguinal hernia repair (~02/2018) Family History Family History Father No problems noted. Mother No problems noted. Brother Cardiovascular disease Diabetes Social History Social History Household Members: Significant Other Housing: House Are you a primary women's health care nurse practitioner to a significant other at home: No Do you presently have visiting nurse or other home services: No Alcohol intake: current Alcohol intake frequency: 0-2 drinks per day Alcohol type: wine Patient Tobacco Use Status: Never used Tobacco e-Cigarette/Vaping Use: Never Used Second Hand Smoke Exposure: No Advance Directives: Yes Advance Directives on File: Yes Advance Directives Date on File: 04/12/21 service: No Current occupational status: retired Cognitive needs: No Hearing needs: No Vision needs: Yes (glasses) Physical Exam 2 Vital Signs: Vital Signs: Last Vital Signs Temp 97.9 F 03/16/25 04:00 Pulse 97 03/16/25 04:00 Resp 18 03/16/25 04:00 BP 127/64 03/16/25 04:00 Pulse Ox 96 03/16/25 04:00 O2 Del Method Room Air 03/16/25 04:00 BMI result Body Mass Index 20.2 Const: Other: * Gen: ?Overall well-appearing patient, atraumatic head * Neck: Supple, no LAD * CV: RRR, no obvious murmurs appreciated * Resp: ?No wheezing rales rhonchi no stridor moving air well * Abd: ?Bowel sounds are present, no tenderness no rebound no rigidity * MSK: Full range of motion upper and lower extremities, he had a hard time sitting up in the gurney, with bilateral paraspinal T11-T12 back tenderness with no step-offs no rashes, no sensory motor deficits bilateral lower extremities * Skin: Warm, dry, intact, no bruising * Neuro: ?Alert and oriented x3, moving upper and lower extremities symmetrically, no obvious facial asymmetry noted Course Course Course Narrative: 03/16/25 0804 BRUCE Mg: Physician observation continued, awaiting PT/CM evaluation. Vitals stable. 03/16/25 12:22 BRUCE Mg: Per Pat from CM, patient requesting discharge home with outpatient PT. He is declining STR. Observation care revealed that patient does not meet medical necessity for hospitalization. Final disposition discussed with patient. The patient completed observation care at 12:22 on 03/16/25. Medications Administered Generic Name Dose Route Start Last Admin Trade Name Freq PRN Reason Stop Dose Admin Amlodipine Besylate 5 mg 03/16/25 09:00 03/16/25 08:13 Amlodipine Besylate 5 Mg Tablet PO 5 mg DAILY JUAN Administration Protocol Ascorbic Acid 250 mg 03/16/25 09:00 03/16/25 08:13 Ascorbic Acid 250 Mg Tablet PO 250 mg DAILY JUAN Administration Atorvastatin Calcium 10 mg 03/16/25 09:00 03/16/25 08:13 Atorvastatin Calcium 10 Mg Tablet PO 10 mg DAILY JUAN Administration Cyanocobalamin 1,000 mcg 03/16/25 09:00 03/16/25 08:13 Cyanocobalamin (Vitamin B-12) 1,000 Mcg Tablet PO 1,000 mcg DAILY JUAN Administration Finasteride 5 mg 03/16/25 09:00 03/16/25 08:13 Finasteride 5 Mg Tablet PO 5 mg DAILY JUAN Administration Folic Acid 1 mg 03/16/25 09:00 03/16/25 09:25 Folic Acid 1 Mg Tablet PO 1 mg DAILY JUAN Administration Lorazepam 0.5 mg 03/15/25 19:50 03/16/25 01:44 Lorazepam 0.5 Mg Tablet PO 0.5 mg BID PRN Administration Insomnia Omeprazole 20 mg 03/16/25 06:30 03/16/25 05:55 Omeprazole 20 Mg Capsule.Dr PO 20 mg DAILY@0630 JUAN Administration Sertraline HCl 25 mg 03/16/25 09:00 03/16/25 08:13 Sertraline Hcl 25 Mg Tablet PO 25 mg DAILY JUAN Administration Vitamin D 50 mcg 03/16/25 09:00 03/16/25 08:13 Cholecalciferol (Vitamin D3) 25 Mcg Tablet PO 50 mcg DAILY JUAN Administration Discontinued Medications Generic Name Dose Route Start Last Admin Trade Name Freq PRN Reason Stop Dose Admin Acetaminophen 650 mg 03/15/25 21:44 03/15/25 21:53 Acetaminophen 325 Mg Tablet PO 03/15/25 21:45 650 mg ONCE ONE Administration Iohexol 100 ml 03/15/25 09:17 03/15/25 09:17 Iohexol 350 Mg/Ml 100 Ml Infus..Btl IV 03/15/25 09:18 85 ml ONCE ONE Administration Ketorolac Tromethamine 15 mg 03/15/25 08:08 03/15/25 08:50 Ketorolac Tromethamine 15 Mg/Ml Vial IVPUSH 03/15/25 08:09 15 mg ONCE ONE Administration Lidocaine 1 patch 03/15/25 08:08 03/15/25 08:51 Lidocaine 4 % Patch Adh..Patch TRANSDERMA 03/15/25 08:09 1 patch ONCE ONE Administration Protocol Oxycodone HCl 5 mg 03/15/25 08:08 03/15/25 08:50 Oxycodone Hcl Immed Release 5 Mg Tablet PO 03/15/25 08:09 5 mg ONCE ONE Administration Medical Decision Making Medical Decision Making [facility] Narrative: Patient is coming back for mid back pain but also abdominal pain, I am going to obtain imaging of his abdomen, he had x-rays of thoracic area and lumbar area and there maybe something around the point of tenderness around T12 he may have a wedge fracture and this may be chronic, with that said he is also having abdominal distention exam with bowel sounds present, volvulus, SBO and differential as below, overall if workup is negative anticipating case management involvement unlikely rehab placement but we will aim for pain control as well 10:28, CT with ileus, but patient is not obstipated, bowel sounds are present, radiologist did not comment on bony anatomy I reviewed images there were no obvious fractures there Differential Diagnosis Differential Diagnoses: The differential diagnosis associated with the presentation includes (Thoracic injury, lumbar injury, we will colic, SBO, volvulus, cauda equina, vertebral compression fracture) Admission/Observation Consideration of admission/observation: Escalation of care including admission/observation considered Lab Data [facility] Lab Attestation statement: I reviewed the patient's lab results. 03/15/25 08:26 03/15/25 08:26 Labs: Lab Results 03/15/25 Range/Units 08:26 WBC 3.5 L (4.8-10.8) X10*3/uL RBC 3.70 L (4.60-5.80) X10*6/uL Hgb 13.2 L (14.0-18.0) g/dl Hct 37.3 L (42.0-52.0) % MCV 100.8 H (80.0-98.0) fL MCH 35.7 H (27.0-33.0) pg MCHC 35.4 (31.0-36.0) g/dl RDW 13.9 (11.0-16.0) % Plt Count 224 (160-400) X10*3/uL MPV 10.6 (9.4-12.4) fL Immature Gran % (Auto) Cancelled Neut % (Auto) Cancelled Lymph % (Auto) Cancelled [place] % (Auto) Cancelled Eos % (Auto) Cancelled Baso % (Auto) Cancelled Lymph # (Auto) Cancelled [place] # (Auto) Cancelled Eos # (Auto) Cancelled Baso # (Auto) Cancelled Abs Immat Gran (auto) Cancelled Absolute Neuts (auto) Cancelled Absolute Nucleated RBC 0.000 (0.0-0.012) X10*3/uL Nucleated RBC % (auto) 0.0 (0.0-0.2) /100WBC Neutrophils % (Manual) 59 (45-73) % Band Neutrophils % 8 H (3-5) % Lymphocytes % (Manual) 16 L (20-40) % Monocytes % (Manual) 16 H (2-11) % Basophils % (Manual) 1 (0-2) % Abs Neuts (Manual) 2.3 (2.0-8.3) X10*3/uL Lymphocytes # (Manual) 0.6 L (1.2-4.9) X10*3/uL Monocytes # (Manual) 0.6 (0.1-1.2) X10*3/uL Platelet Estimate NORMAL (NORMAL) Plt Morphology Comment NORMAL RBC Morphology NORMAL Sodium 138 (135-145) mmol/L Potassium 3.7 (3.3-5.1) mmol/L Chloride 105 (96-108) mmol/L Carbon Dioxide 22 (22-29) mmol/L Anion Gap 15 (12-20) BUN 28 H (9-16) mg/dL Creatinine 1.08 (0.5-1.4) mg/dL Estim Creat Clear Calc 44.9 Estimated GFR > 60 Random Glucose 87 (60-115) mg/dL Calcium 8.6 D (8.4-10.2) mg/dL Total Bilirubin 0.7 (0.0-1.0) mg/dL AST 19 (5-37) U/L ALT 11 (0-40) U/L Alkaline Phosphatase 68 (39-117) U/L Total Protein 6.6 (6.5-8.0) g/dL Albumin 3.9 (3.5-5.0) g/dL Lipase 11 (8-78) U/L COVID-19 (RADHA) Negative (Negative) COVID-19 Clin Com See Note Independent Interpretation I performed an independent interpretation of an: CT Scan (On my evaluation concerning for SBO we will await official report) Radiology Impression Discussion of test interpretation with radiology: I have reviewed the radiologist's reading. (1. Dilatation of the small bowel to the level of the anastomosis without a discrete obstructing lesion. Findings may reflect ileus. 2. Gallbladder sludge. 3. Small bilateral renal cysts. 4. Colonic diverticulosis.) Independent Historian Clinical information obtained from an independent historian. History obtained from or confirmed by: EMS External Record Review External record reviewed: Prior outpatient labs Prescription Management I considered prescription management with: Pain Medication Discharge Plan Discharge Clinical Impression: Back pain Patient Disposition: Home, Self-Care Instructions: Back Pain (ED) Additional Instructions: You were evaluated in the emergency department for back pain. Your evaluation did not show evidence of conditions requiring emergent medical treatment. You declined short-term rehab. You are being discharged home with outpatient physical therapy. Follow up with your primary care provider this week. Return to the emergency department with worsening pain, new weakness, numbness, tingling to her legs, or any other new or concerning symptoms. Prescriptions: No Action tamsulosin [Flomax] 0.4 mg capsule 0.4 mg PO BEDTIME Qty: 90 2RF ascorbic acid (vitamin C) 250 mg tablet 250 mg PO DAILY 90 Days Qty: 90 3RF cholecalciferol (vitamin D3) 50 mcg (2,000 unit) capsule 50 mcg PO DAILY 90 Days Qty: 90 3RF sertraline 25 mg tablet 25 mg PO DAILY 90 Days Qty: 90 2RF amlodipine [Norvasc] 5 mg tablet 5 mg PO DAILY 90 Days Qty: 90 1RF atorvastatin [Lipitor] 10 mg tablet 10 mg PO DAILY Qty: 90 1RF finasteride [Proscar] 5 mg tablet 5 mg PO DAILY Qty: 90 2RF simethicone [Gas-X Extra Strength] 125 mg capsule 125 mg PO BID-QID PRN (Reason: abdominal distention) 30 Days Qty: 120 0RF cyanocobalamin (vitamin B-12) [Vitamin B-12] 1,000 mcg tablet 1,000 mcg PO DAILY Qty: 90 0RF folic acid 1 mg tablet 1 mg PO DAILY Qty: 90 0RF naproxen 500 mg tablet 500 mg PO BID PRN (Reason: pain) Qty: 14 0RF lorazepam 0.5 mg tablet 0.5 mg PO BID PRN (Reason: insomnia) Senna Plus 8.6-50 mg capsule 2 tab-cap PO BEDTIME PRN (Reason: Constipation) docusate sodium [Colace] 100 mg capsule 100 mg PO BID PRN (Reason: constipation) Qty: 30 0RF loperamide 2 mg capsule 2 mg PO Q8H PRN (Reason: loose stool) 7 Days Qty: 21 0RF omeprazole 20 mg capsule,delayed release(DR/EC) 20 mg PO DAILY Print Language: Occitan
[2025-03-15 08:39] LABS: Hematocrit 37.3 % (42.0-52.0); Hemoglobin 13.2 g/dl (14.0-18.0); Mean Corpuscular HGB Conc 35.4 g/dl (31.0-36.0); Mean Corpuscular Hemoglobin 35.7 pg (27.0-33.0); Mean Corpuscular Volume 100.8 fL (80.0-98.0); NRBC Abs Auto 0.000 X10*3/uL (0.0-0.012); NRBC Pct Auto 0.0 /100WBC (0.0-0.2); Platelet Count 224 X10*3/uL (160-400); Red Blood Count 3.70 X10*6/uL (4.60-5.80); White Blood Count 3.5 X10*3/uL (4.8-10.8)
[2025-03-15 08:49] LABS: COVID-19 Test Negative (Negative); IDNOW Serial# 55D5AD1C
[2025-03-15] MEDS: oxyCODONE HCl Immed Release 5 MG TABLET PO (08:50)
[2025-03-15 08:51] LABS: Alanine Aminotransferase 11 U/L (0-40); Albumin Level 3.9 g/dL (3.5-5.0); Alkaline Phosphatase 68 U/L (39-117); Anion Gap 15 (12-20); Aspartate Amino Transferase 19 U/L (5-37); Blood Urea Nitrogen 28 mg/dL (9-16); Calcium 8.6 mg/dL (8.4-10.2); Carbon Dioxide 22 mmol/L (22-29); Chloride 105 mmol/L (96-108); Creatinine Clr Calc Pharmacy 44.9; Estimated Glomerular Filt Rate > 60; Lipase 11 U/L (8-78); Potassium 3.7 mmol/L (3.3-5.1); Sodium 138 mmol/L (135-145); Total Protein 6.6 g/dL (6.5-8.0)
[2025-03-15] MEDS: Lidocaine 4 % Patch ADH..PATCH 1 PATCH TRANSDERMA (08:51)
[2025-03-15 09:02] LABS: Band Neutrophils Percent 8 % (3-5); Basophils Percent Manual 1 % (0-2); Lymphocytes Absolute Manual 0.6 X10*3/uL (1.2-4.9); Lymphocytes Percent Manual 16 % (20-40); Monocytes Absolute Manual 0.6 X10*3/uL (0.1-1.2); Monocytes Percent Manual 16 % (2-11); Neutrophils Absolute Manual 2.3 X10*3/uL (2.0-8.3); Neutrophils Percent Manual 59 % (45-73); RBC Morphology NORMAL
[2025-03-15] MEDS: iohexoL 350 MG/ML 100 ML INFUS..BTL IV (09:17)
--- NOTE | 2025-03-15 11:16 | MHC.CM.PN ---
CM RECEIVED CM CONSULT 03/15, PT W/WORSENING BACK PAIN/SPASMS AND ABD PAIN, ABD/PELVIC CT PENDING, PT'S RONALD ALMAZAN AND ADDITIONAL PERSON AT BEDSIDE HOWEVER PT ANSWERS FOR HIMSELF, PT REPORTS HE IS INDEP W/CARE AT BASELINE, DENIES USE OF DME/SERVICES AND WOULD LIKE TO STAY OVERNIGHT FOR PT EVAL, ANTIC PT WILL LIKELY DC HOME TOMORROW W/NEW VNA, REFERRAL PLACCED TO [facility] CONTRACTED VNA'S. PCP/HCP ON FILE VERIFIED.
--- NOTE | 2025-03-15 22:40 | PC.NURSE ---
report to Mamta TERRELL in ed overflow for pt transfer
[2025-03-16 04:00] VITALS: BP 127/64; PULSE 97; RESP 18; TEMP 36.6; O2SAT 96
--- NOTE | 2025-03-16 06:19 | PC.NURSE ---
Assumed care of patient at 2245 in ED OVF. Patient is alert and oriented x 3, forgetful at times. He is able to stand and take few steps, but continues to complain of pain with movement. External catheter in place. Unable to tolerate external cath. Removed. Patient now has urinal at bedside. Patient awaiting PT eval. No acute events overnight. Bed locked and in lowest setting, bed alarm on. Call james within reach.
--- NOTE | 2025-03-16 08:15 | MHC.EDTECH ---
pt ate 25% of his breakfast
--- NOTE | 2025-03-16 09:39 | MHC.EDTECH ---
pt was 1 assisted to the bathroom with a walker and voided 1x and was washed up with linen changed and 1 assisted to the recliner
--- NOTE | 2025-03-16 09:41 | MHC.EDTECH ---
pt was standby assistance with teeth brushing
--- NOTE | 2025-03-16 12:34 | MHC.EDTECH ---
pt ate >25% lunch
[2025-03-16 13:18] VITALS: BP 131/65; PULSE 71; RESP 18; TEMP 36.8
--- NOTE | 2025-03-16 14:17 | MHC.CM.PN ---
CM RECEIVED CONSULT FOR PT WHO REPORTS PAIN AND DIFFICULTY AMBULATING PT EVAL COMPLETED, STR RECOMMENDED CM MET WITH PT AND AT BEDSIDE OPTIONS WERE REVIEWED, THEY BOTH REPORT THEY WOULD PREFER PT GO HOME AND ATTEND OUTPATIENT THERAPY PROVIDER AWARE PTS WILL PROVIDE TRANSPORT AT DC
== END 2025-03-16 13:18 | disposition home or self-care (01) ==
PROVIDERS: Emergency Provider Emergency Medicine; PCP Physician Assistant
DX: M54.9 Dorsalgia, unspecified (principal); R10.9 Unspecified abdominal pain; I10 Essential (primary) hypertension; D64.9 Anemia, unspecified; Z85.038 Personal history of other malignant neoplasm of large intestine; Z79.899 Other long term (current) drug therapy
CPT/HCPCS: 74177; 80053; 83690; 85007; 85027; 87635; 96374; 97162; 99284; J1885; Q9967

== ENCOUNTER → 2025-03-15 08:09 | Outpatient (BNV) | payer MEDICARE, SELFPAY | PROVIDERS: Emergency Provider Emergency Medicine; PCP Physician Assistant; Visit Provider Radiology Diagnostic Radiology | DX: K57.30 Diverticulosis of large intestine without perforation or abscess without bleeding (principal) | CPT/HCPCS: 74177 ==

== ENCOUNTER 2025-03-19 10:52 | Outpatient (AMB) | payer MEDICARE, SELFPAY ==
--- NOTE | 2025-03-19 11:02 | MHC.PC.OV ---
Vital Signs 03/19/25 11:03 Height 5 ft 8 in Weight 132 lb BMI 20.1 BP 102/66 Blood Pressure Location Lt brachial Position Sitting Pulse 111 H Pulse Source Pulse Oximeter Pulse Oximetry (%) 95 Oxygen Delivery Method Room Air Intake Visit Reasons: EDF and not eating/drinking Hatch Boss Required: No Accompanied by: Self / Same As Patient Allergies lisinopril Allergy (Severe, Verified 03/19/25 12:21) lip swelling hydrochlorothiazide Adverse Reaction (Severe, Verified 03/19/25 12:21) dizziness/ hyponatremia Medication List - Last Reconciled 03/19/25 by Rocael Reeves PA-C amlodipine (Norvasc) 5 mg PO DAILY 90 days ascorbic acid (vitamin C) 250 mg PO DAILY 90 days atorvastatin (Lipitor) 10 mg PO DAILY cholecalciferol (vitamin D3) 50 mcg PO DAILY 90 days docusate sodium (Colace) 100 mg PO BID PRN finasteride (Proscar) 5 mg PO DAILY folic acid 1 mg PO DAILY loperamide 2 mg PO Q8H PRN 7 days lorazepam 0.5 mg PO BID PRN naproxen 500 mg PO BID PRN omeprazole 40 mg PO QAM sennosides-docusate sodium 8.6-50 mg (Senna Plus) 2 tab-caps PO BEDTIME PRN sertraline 25 mg PO DAILY 90 days simethicone (Gas-X Extra Strength) 125 mg PO BID-QID PRN 30 days tamsulosin (Flomax) 0.4 mg PO BEDTIME Held on 10/05/22. Instructions: Doctor's Order Tobacco use date assessed: 03/19/25 Fall risk assessment: 1 Fall in past year Last assessed Fall Risk: 03/19/25 Dental Screening Dental Screen Date: 03/19/25 Did you have a dental visit in the last 12 months?: Yes Did you have a dental problem in the last 6 months where you did not have access to dental care?: No Was dental information given to patient?: Patient has dentist HPI EDF and not eating/drinking HPI Details The patient is an 84-year-old male presenting with abdominal distension and bloating. The symptoms have been ongoing for approximately two weeks, with associated lower back pain and fecal incontinence. The patient has a history of adenocarcinoma of the bowel, and recent imaging showed small bowel dilation at the anastomosis site without a clear obstruction. The patient experienced a fall on Sunday night, which resulted in a visit to the emergency room where x-rays were taken, revealing no fractures. Despite the absence of fractures, the patient continues to experience significant lower back pain, which is exacerbated by movement. The patient reports difficulty keeping liquids down, with episodes of vomiting occurring intermittently. Attempts to consume Pedialyte were unsuccessful due to taste preferences. The patient is also experiencing tachycardia, with a heart rate recorded at 112 bpm. [facility] Medical History History of colon cancer Left sided abdominal pain History of urinary frequency Adenocarcinoma of cecum HTN (hypertension) Anemia Hyperlipidemia Surgical History S/P right colectomy History of esophagogastroduodenoscopy (EGD) History of colon resection (~2020) Hx of eye surgery H/O colonoscopy History of left inguinal hernia repair (~02/2018) Family History Father No problems noted. Mother No problems noted. Brother Cardiovascular disease Diabetes Social History Household Members: Significant Other Housing: House Are you a primary resident care aide to a significant other at home: No Do you presently have visiting nurse or other home services: No Alcohol intake: current Alcohol intake frequency: 0-2 drinks per day Alcohol type: wine Patient Tobacco Use Status: Never used Tobacco e-Cigarette/Vaping Use: Never Used Second Hand Smoke Exposure: No Advance Directives Date on File: 04/12/21 service: No Current occupational status: retired Cognitive needs: No Hearing needs: No Vision needs: Yes (glasses) Questionnaire PHQ-9 Over the last 2 weeks, how often have you been bothered by any of the following problems? 1. Little interest or pleasure in doing things: not at all 2. Feeling down, depressed, or hopeless: not at all 3. Trouble falling or staying asleep, or sleeping too much: not at all 4. Feeling tired or having little energy: not at all 5. Poor appetite or overeating: not at all 6. Feeling bad about yourself - or that you are a failure or have let yourself or your family down: not at all 7. Trouble concentrating on things, such as reading the newspaper or watching television: not at all 8. Moving or speaking so slowly that other people could have noticed. Or the opposite - being so fidgety or restless that you have been moving around a lot more than usual: not at all 9. Thoughts that you would be better off or of hurting yourself in some way: not at all Total score: 0 Depression Screening Interpretation: Negative Depression Screening Done: Yes 25695 - PHQ-9 Billing: Yes Source: Developed by Drs. Joseph Riggins, Cheryl Johnson, Uche Isabel and colleagues, with an educational aurelio from [employer]. Thrive Questionnaire Date Thrive assessed: 03/19/25 I am a: Patient What is your living situation today?: I have a steady place to live Within the past 12 months, did the food you bought not last and you didn't have the money to get more?: Never true Within the past 12 months, did you worry whether your food would run out before you got money to buy more?: Never true Do you have trouble paying for medicines?: No Do you have trouble getting transportation to medical appointments?: No Do you have trouble paying your heating and electricity bill?: No Do you have trouble taking care of your child, family member or friend?: No Do you have trouble with day-to-day activities such as bathing, preparing meals, shopping, managing finances, etc.?: No Are you currently unemployed and looking for a job?: No Are you interested in more education?: No Please select the resources that you would like help with: None Currently or been in a relationship where the following occur: I choose not to answer THRIVE Score: 0 AUDIT C Alcohol Use Questionnaire (AUDIT-C) 1. How often do you have a drink containing alcohol?: 2-3 times a week 2. How many drinks containing alcohol do you have on a typical day when you are drinking?: 1 or 2 3. How often do you have six or more drinks on one occasion?: Never Total Score: 3 KEN-7 AMB Questionnaire KEN-7 Date KEN - 7 assessed: 03/19/25 Feeling nervous, anxious, or on edge: 0 = Not at all Not being able to stop or control worryin = Not at all Worrying too much about different things: 0 = Not at all Trouble relaxin = Not at all Being so restless that it is hard to sit still: 0 = Not at all Becoming easily annoyed or irritable: 0 = Not at all Feeling afraid as if something awful might happen: 0 = Not at all Total KEN-7 score (0-4 normal; 5-9 mild; 10-14 moderate; 15-21 severe): 0 Source: Developed by Drs. Joseph Riggins, Cheryl Johnson, Uche Isabel and colleagues, with an educational aurelio from [employer]. KEN-7 Assessment Billing KEN-7 Assessment Tool: KEN-7 Assessment 94948 Review of Systems Const Denies headache(s) Eyes Denies loss of vision ENT Denies vertigo, Denies dizziness, Denies headache(s) and Denies sore throat Card Denies chest pain, Denies leg edema and Denies lightheadedness Resp Denies cough, Denies hemoptysis and Denies wheezing GI Details: + fecal incontinence Denies abdominal pain, Denies melena, Reports bloating, Denies constipation, Reports GI cramping, Reports dyspepsia, Denies diarrhea and Denies vomiting Denies dysuria, Denies urinary frequency and Denies urinary urgency Musc Denies arthralgias, Denies joint swelling, Denies numbness and Denies tingling Neuro Denies Abnormal speech present, Denies behavioral changes, Denies vertigo, Denies dizziness, Denies headache(s), Denies loss of vision, Denies memory loss, Denies numbness and Denies tingling Psych Denies anxiety, Denies behavioral changes, Denies depression, Denies memory loss and Denies panic attacks Alek/Lymph Denies easy bleeding and Denies easy bruising Aller/Immun Denies wheezing Physical exam (Primary Care) Vital Signs: Last Vital Signs Pulse 111 H 03/19/25 11:03 BP 102/66 03/19/25 11:03 Pulse Ox 95 03/19/25 11:03 Oxygen Delivery Method Room Air 03/19/25 11:03 BMI result Body Mass Index 20.1 Tobacco/Smoking Status: Tobacco use Status Tobacco use date assessed 03/19/25 03/19/25 11:08 Patient Tobacco Use Status Never used Tobacco 03/19/25 11:08 e-Cigarette/Vaping Use Never Used 03/19/25 11:08 PHQ-9: PHQ-9 Score PHQ-9: Total score 0 03/19/25 11:08 Depression Screening Interpretation: Negative Thrive Assessment: Date of Thrive Assessment Date Thrive assessed 03/19/25 03/19/25 11:08 Currently or been in a relationship where the following occur: I choose not to answer Const General: healthy appearing, no acute distress, alert and awake Nutritional Appearance: well nourished Orientation/consciousness: oriented to person, oriented to place and oriented to time HENMT Ears: TM's normal bilaterally General nose exam: Normal nasal mucous membranes and turbinates present Eyes Conjunctivae: conjunctivae normal Sclerae: sclerae normal Pupils: Equal, round and reactive pupils present Neck Neck: Yes no lymphadenopathy and Yes no JVD Thyroid: Thyroid normal Carotids: no bruits Resp Effort & Inspection: normal respiratory effort and not tachypneic Auscultation: no crackles, no rales, no rhonchi and no wheezes Cardio Rate: regular rate Rhythm: regular rhythm Heart sounds: no murmurs and normal S1 and S2 GI Other: Palpation (GI): Soft to palpation, nontender, no hepatomegaly and no splenomegaly Auscultation: normal bowel sounds Skin General skin exam: no rashes or lesions noted and dry skin Neuro General: oriented to person, oriented to place and oriented to time Cranial nerves: Yes Equal, round and reactive pupils present Speech: No Abnormal speech present Gait exam (Neuro): Normal gait present Motor exam (neuro): no tremor noted Extrem Right upper extremity: full ROM Left upper extremity: full ROM Right lower extremity: full ROM; no edema Left lower extremity: full ROM; no edema Psych Mental Status: mental status grossly normal Speech and movement: Normal speech and movement present Affect: normal affect Attitude: cooperative Thought process: Normal thought process present Coding Level of Care Code Est Pt Level 3 (66475) Diagnoses Ileus K56.7 Additional Codes KEN-7 Assessment Billing - KEN-7 Assessment Tool: KEN-7 Assessment 60131 ([id number]) PHQ-9 - 74087 - PHQ-9 Billing: Yes ([id number]) Assessment & Plan Assessment & Plan (1) Ileus: Code(s): K56.7 - Ileus, unspecified Category: Medical Plan: The patient is advised to seek evaluation at the emergency department for possible bowel obstruction, given the abdominal distension and bloating, along with difficulty in keeping liquids down. Goal though over to the [place] emergency room personally to give report. The plan includes potential hospital admission for further evaluation and management, including possible decompression of the stomach and bowel rest.
[2025-03-19 11:03] VITALS: BP 102/66; PULSE 111; O2SAT 95; BMI 20.1
--- OUTSIDE RECORDS SUMMARY | 2025-03-19 12:30 | XMS_ITS | Encounter Summary ---
Author Organization [facility] Address [address] [place] [phone] Phone Care Team Providers Care Cardiovascular Radiologic Technologist Name Role Phone Rocael Reeves Primary Care Provider + Reason for Referral * Home Health Care - New Request Specialty Diagnoses / Procedures Referred By Sherry paulson Referred To Contact Home Health Services Miguel A Barnett MD [address] [place] [address] Phone: tel: [email or web address] [address] [place] [address] Phone: tel: Referral ID Status Reason Start Date Expiration Date V isits Requested Visits Authorized [id number] New Request 03/16/2025 03/16/2026 1 1 Encounter Details Date Type Department Care Team (Late st Contact Info) Description 03/16/2025 Orders Only [facility] [address] [place] [address] Miguel A Barnett MD [address] [place] [address] Social History Tobacco Use Types Packs/Day Years Used Date Smoking Tobacco: Never Smokeless Tobacco: Never Education Answer Date Recorded Are you interested [...] on file Sexual Orientation Not on file documented as of this encounter Plan of Treatment Scheduled Referrals Name Type Priority Associated Diagnoses Orde r Schedule 4NEXT REFERRAL TO HOME HEALTH Outpatient Referral Routine Ordered: 03/16/2025 documented as of this encounter Visit Diagnoses Not on filedocumented in this encounter Care Teams Cardiovascular Radiologic Technologist Relationship Specialty Start Date End Date Rocael Reeves PA [address] [place] [address] PCP - General Physician Mathematical Statistician 03/03/24 documented as of this encounter Additional Source Comments The information contained in this document represents components of the legal health record. It is not the complete legal health record.[facility]
--- OUTSIDE RECORDS SUMMARY | 2025-03-19 12:30 | XMS_ITS | Clinical Summary ---
Author Organization [facility] Address [address] [place], [place] [id number] Phone Care Team Providers Care Chicken Sexer Name Role Phone Rocael Reeves Primary Care [...] 8 g 03/03/2024 Active inhaler spacing device (AEROCHAMBER,MICHLELE ZAMORA) Spcr Inhale 1 each into the lungs every 4 (four) hours as needed. 1 each 03/03/2024 Active Active Problems No known active problems Encounters Date Type Department Care Team Description 03/16/2025 Orders Only [facility] [address] [place] [address] Homehealth, Interface ProviderMD from Last 3 Months Immunizations Immunization Administration Dates Next Due Influenza [...] (2 of 2 - PPSV23) 07/28/2020 07/28/2019 INFLUENZA VACCINE (#1) 2025 , 05/10/2022, 05/03/2021, Additional history exists COVID-19 VACCINE ( - 2024- season) 2025 04/30/2023, 06/06/2022, 07/04/2021, Additional history exists Adult Td,Tdap Booster 08/01/2033 [...] topic Medical Devices Not on file Insurance [place] [address] MEDICARE HMO REPLACEMENT [place] MED[place] RE[employer] MED[place] HMO REPLACEMENT [employer] [place] MEDIC[place] HMO REPLACEMENT Care Teams Chicken Sexer Relationship Specialty Start Date End Date Rocael Reeves PA [address] [place] [phone] PCP - General Physician Shoe Salesperson 03/03/24 Additional Source Comments The information contained in this document represents components of the legal health record. It is not the complete legal health record.[facility]
== END 2025-03-19 12:29 | disposition home or self-care (01) ==
LOC: HO.HMCH 10:53
PROVIDERS: PCP Physician Assistant; Visit Provider Physician Assistant
DX: K56.7 Ileus, unspecified (principal)

== ENCOUNTER 2025-03-19 12:13 | Inpatient (IN) | payer MEDICARE, SELFPAY ==
--- NOTE | ~2025-03-19 | XR_ITS ---
CLINICAL HISTORY: sob 1 view chest x-ray Comparison: CR/SR - XR CHEST 2 VIEWS - 09/26/22 12:15 EDT Findings: Mild elevation of the right hemidiaphragm. Linear and bandlike opacities at the base of the right lung. No consolidation. Normal heart size. Elongation of the aorta. No acute fracture. IMPRESSION: There are multiple foci of atelectasis of the base of the right lung with mild elevation of the right hemidiaphragm. This document has been electronically signed by: Leigh Ann Mancini MD on 03/19/2025 17:46:15
--- NOTE | ~2025-03-19 | XR_ITS ---
EXAMINATION: XR ABDOMEN 1 VIEW (KUB) HISTORY: Follow-up for ileus COMPARISON: Comparison is made with the prior examination dated 10/20/2021. Correlation is also made with a CT of the abdomen and pelvis without contrast dated 03/19/2025. FINDINGS: Two portable supine views of the abdomen performed at 8:19 AM are submitted. There is gaseous distention of large and small bowel loops. The small bowel is distended to a greater extent than the colon. While this may represent ileus, small bowel obstruction is not excluded. There is calcification of the abdominal aorta. There are sutures in the right midabdomen. There are no abnormal soft tissue masses. There is degenerative disc disease of the spine. XR/XR KUB IMPRESSION: Gaseous distention of large and small bowel loops with greater distention of the small bowel. Findings may represent ileus, although small bowel obstruction is not excluded. Electronically signed by: Joseph Winkler MD 03/23/2025 09:00 AM EDT
--- NOTE | ~2025-03-19 | CT_ITS ---
EXAMINATION: CT ABDOMEN AND PELVIS WITHOUT CONTRAST CLINICAL INFORMATION: Acute kidney injury, abdominal pain, constipation COMPARISON: March 15, 2025 TECHNIQUE: Multidetector volumetric imaging was performed from the superior aspect of the liver through the pubic symphysis. Sagittal and coronal reformatted images were obtained on the technologist's workstation. This CT examination was performed using dose optimization techniques as appropriate, variously including the following: *Automated exposure control *Adjustment of mA and/or kV according to patient size (this includes techniques or standardized protocols for targeted exams where dose is matched to indication/reason for exam; i.e. extremities or head) *Use of iterative reconstruction technique DLP: 369 mGY*cm FINDINGS: LUNG BASES: Linear scarring and atelectasis in the posterior lateral base of the right lower lobe is stable. LIVER, GALLBLADDER, AND BILIARY TREE: The liver is normal in size, shape, and attenuation. No focal hepatic lesion or biliary ductal dilatation is present. High density layering in the gallbladder fundus is likely from vicarious excretion of contrast or high density sludge/stones. PANCREAS: Focal calcification in the body of the pancreas is consistent with remote/chronic pancreatitis. SPLEEN: 6 mm low-attenuation the medial aspect of the spleen is chronic and stable, likely representing cyst or pseudocyst. ADRENAL GLANDS: Unremarkable. KIDNEYS AND URETERS: Bilateral simple renal cysts are stable. There are no stones. There is no hydronephrosis. BLADDER: Unremarkable. GASTROINTESTINAL TRACT: Client diverticulosis is most pronounced in the sigmoid colon. There is surgical changes in the right cecum. The small bowel is diffusely dilated and fluid filled with the exception of the duodenum. The stomach is also normal fluid-filled and distended. There is no point of transition to decompressed bowel. There is a right inguinal hernia that involves lateral wall of the small bowel without evidence of compression or obstruction. ABDOMINAL WALL: See Gastrointestinal Tract. LYMPH NODES: Normal. VASCULAR: Moderate and severe vascular calcifications are present PELVIC VISCERA: Unremarkable. OSSEOUS STRUCTURES: Moderate severe multilevel degenerative changes are evident in the central portions of the spine. There is a chronic L1 compression fracture. There are [id number] degenerative changes in the SI joints and mild degenerative changes in the hips. CT/CT abdomen pelvis wo IV con IMPRESSION: Fluid distended small and large bowel without a transitional zone consistent with a paralytic ileus with increasing small bowel dilation with compared to the prior. There is a right inguinal hernia involving a single wall of small bowel but not causing compression/obstruction. High density layering in the gallbladder fundus could represent vicarious excretion of contrast, stones, or sludge. Chronic pancreatitis. Linear scarring and atelectasis in the posterior lateral base of the right lower lobe is stable. Fleischner guidelines were followed. Electronically signed by: Spencer Velasquez MD 03/19/2025 02:55 PM EDT
[2025-03-19 12:16] VITALS: BP 106/65; PULSE 96; RESP 22; TEMP 37; O2SAT 98; BMI 21.3
--- NOTE | 2025-03-19 12:20 | ED.GENADULT ---
HPI - General Adult General Chief complaint: General Medical Stated complaint: Fall last week - back & neck pain Time Seen by Provider: 03/19/25 13:55 History of Present Illness ED Provider: Andres Callahan MD HPI narrative: Abdominal pain and distention recurrence. Recent ileus. Prior colectomy for cancer. No BM for about 2 weeks until this morning small amount of liquid stool. Abdominal pain feels dehydrated can eat well vomiting up even small meal liquids Related Data Home Medications ?Medication ?Instructions ?Recorded ?Confirmed lorazepam 0.5 mg tablet 0.5 mg PO BID PRN insomnia 03/15/25 03/19/25 omeprazole 40 mg capsule,delayed 40 mg PO DAILY@0630 03/19/25 03/19/25 release Previous Rx's ?Medication ?Instructions ?Recorded ascorbic acid (vitamin C) 250 mg 250 mg PO DAILY 90 days #90 tabs 05/15/24 tablet cholecalciferol (vitamin D3) 50 50 mcg PO DAILY 90 days #90 caps 08/04/24 mcg (2,000 unit) capsule sertraline 25 mg tablet 25 mg PO DAILY 90 days #90 tabs 11/06/24 amlodipine 5 mg tablet (Norvasc) 5 mg PO DAILY htn 90 days #90 tabs 12/15/24 atorvastatin 10 mg tablet (Lipitor) 10 mg PO DAILY #90 tabs 12/15/24 finasteride 5 mg tablet (Proscar) 5 mg PO DAILY #90 tabs 12/15/24 folic acid 1 mg tablet 1 mg PO DAILY #90 tabs 02/10/25 Allergies Allergy/AdvReac Type Severity Reaction Status Date / Time lisinopril Allergy Severe lip Verified 03/19/25 12:21 swelling hydrochlorothiazide AdvReac Severe dizziness/ Verified 03/19/25 12:21 hyponatremia [facility] Past Medical History Medical History History of colon cancer Left sided abdominal pain History of urinary frequency Adenocarcinoma of cecum HTN (hypertension) Anemia Hyperlipidemia Surgical History S/P right colectomy History of esophagogastroduodenoscopy (EGD) History of colon resection (~2020) Hx of eye surgery H/O colonoscopy History of left inguinal hernia repair (~02/2018) Family History Family History Father No problems noted. Mother No problems noted. Brother Cardiovascular disease Diabetes Social History Social History Household Members: Spouse Household Members Other:: Housing: Apartment Are you a primary care manager to a significant other at home: No Do you presently have visiting nurse or other home services: No (would like some) Alcohol intake: current Alcohol intake frequency: 3 or more drinks per day Alcohol type: wine Patient Tobacco Use Status: Never used Tobacco e-Cigarette/Vaping Use: Never Used Second Hand Smoke Exposure: No Advance Directives Date on File: 04/12/21 service: No Current occupational status: retired Cognitive needs: No Hearing needs: No Vision needs: Yes (glasses) Physical Exam ED Exam Exam: EXAM: Gen: Alert, awake, mildly dry appearing hoarse voice no distress no stridor Head: Atraumatic Eyes: Anicteric, Normal conjunctiva. ENT: Dry mucosa Neck: Supple. Skin: ?No observable rash or bruising on exposed or examined skin Respiratory: Breathing comfortably, No distress.Clear to auscultation bilaterally, symmetric chest expansion, No wheeze, rales, ronchi. Cardiovascular: Regular rate and rhythm. No murmurs or rub. Well perfused periphery, warm extremities. No edema. ? Abdominal: Surgical scars. Rotund and distended without fluid wave mildly tender throughout : No flank tenderness. Neuro: Alert. Gross movement of all extremities intact. ? Psych: Calm. Cooperative. MSK: No grossly visible deformity. Vital signs: See flowsheet Vital Signs: Vital Signs - 24 hr 03/19/25 14:53 03/19/25 15:31 Temperature 97.2 F Pulse Rate 100 100 Respiratory Rate 13 22 H Blood Pressure 118/62 119/68 Pulse Oximetry 97 97 Oxygen Delivery Method Room Air Room Air BMI result Body Mass Index 21.3 Course Course Course Narrative: This is a rapid medical exam performed by Agus Mg NP: Additional HPI, ROS, PE not included below will be deferred to primary provider. Patient is an 84y/o M with history of adenocarcinoma of colon, HTN, anemia, HLD presenting from PCP office who has concerns regarding patient's safety/decline at home, concern for ileus. Patient has been having liquid stool for the past 2 days. also states patient lost his voice after screaming during x-rays the day before yesterday. Seen here on 03/13 and 03/15. Hypoactive BS in triage. Plan: EKG, labs Medications Administered Generic Name Dose Route Start Last Admin Trade Name Freq PRN Reason Stop Dose Admin Amlodipine Besylate 5 mg 03/20/25 09:00 03/20/25 08:34 Amlodipine Besylate 5 Mg Tablet PO 5 mg DAILY JUAN Administration Protocol Finasteride 5 mg 03/20/25 09:00 03/20/25 08:34 Finasteride 5 Mg Tablet PO 5 mg DAILY JUAN Administration Lactated Ringer's 1,000 mls @ 100 mls/hr 03/19/25 17:00 03/20/25 12:23 Lr IVCONT 100 mls/hr .Q10H JUAN Administration Omeprazole 40 mg 03/20/25 06:30 03/20/25 05:31 Omeprazole 40 Mg Capsule. PO 40 mg DAILY@0630 JUAN Administration Sertraline HCl 25 mg 03/20/25 09:00 03/20/25 08:34 Sertraline Hcl 25 Mg Tablet PO 25 mg DAILY JUAN Administration Sodium Chloride 3 ml 03/20/25 00:00 03/20/25 08:32 0.9 % Sodium Chloride Flush 3 Ml Syringe IVFLUSH 3 ml QSHIFT JUAN Administration Discontinued Medications Generic Name Dose Route Start Last Admin Trade Name Andradeq PRN Reason Stop Dose Admin Potassium Chloride/Sodium Chloride 20 meq in 1,000 mls @ 500 mls/hr 03/19/25 14:00 03/19/25 17:56 Kcl 20 Meq In 0.45% Sod IVCONT Infused .Q2H JUAN Infusion Potassium Chloride 10 meq in 100 mls @ 100 mls/hr 03/19/25 16:15 03/20/25 00:00 Potassium Chloride/H20 IV 03/19/25 20:14 Infused Q1H JUAN Infusion Potassium Chloride 40 meq 03/19/25 22:55 03/20/25 00:37 Potassium Chloride Packet 20 Meq Packet PO 03/19/25 22:56 Not Given ONCE STA Potassium Chloride 40 meq 03/20/25 11:01 03/20/25 12:20 Potassium Chloride Er 20 Meq Tab.Er.Prt PO 03/20/25 11:02 40 meq ONCE ONE Administration Medical Decision Making Medical Decision Making MDM Narrative: Medical Decision Making: [age] male with prior surgical history recent ileus. Decreased BMs but small liquid bowel movement today. Tender distended abdomen. CT shows ileus once again. No active vomiting or distress in the ED. Surgical consultation appreciated they recommend conservative management but we will consult. Hospitalist accepts for admission. Patient hydrated no actionable lab findings Preliminary Favored Differential Diagnosis: Colitis, SBO, ileus, electrolyte derangement among additional considered etiologies Testing Interpreted Independently: ?See below for details Radiology or Lab testing Results Reviewed: ?See below for details Consults: ?See below for details Independent Historians/External Chart Reviews: ?See below for details Social Determinants of Health Impacting MDM/Planning: ?See below for details Consult Healthcare Provider Management of the patient was discussed with: Hospitalist and Diamond Grader (General surgery Dr. Saldaña) Lab Data MDM Lab Attestation statement: I reviewed the patient's lab results. 03/20/25 09:14 03/20/25 09:14 Labs: Lab Results 03/19/25 03/19/25 Range/Units 13:11 14:12 WBC 7.9 (4.8-10.8) X10*3/uL RBC 3.95 L (4.60-5.80) X10*6/uL Hgb 14.0 (14.0-18.0) g/dl Hct 37.4 L (42.0-52.0) % MCV 94.7 D (80.0-98.0) fL MCH 35.4 H (27.0-33.0) pg MCHC 37.4 H (31.0-36.0) g/dl RDW 13.4 (11.0-16.0) % Plt Count 315 D (160-400) X10*3/uL MPV 10.9 (9.4-12.4) fL Immature Gran % (Auto) Cancelled Neut % (Auto) Cancelled Lymph % (Auto) Cancelled [place] % (Auto) Cancelled Eos % (Auto) Cancelled Baso % (Auto) Cancelled Lymph # (Auto) Cancelled [place] # (Auto) Cancelled Eos # (Auto) Cancelled Baso # (Auto) Cancelled Abs Immat Gran (auto) Cancelled Absolute Neuts (auto) Cancelled Absolute Nucleated RBC 0.000 (0.0-0.012) X10*3/uL Nucleated RBC % (auto) 0.0 (0.0-0.2) /100WBC Neutrophils % (Manual) 33 L (45-73) % Band Neutrophils % 36 H (3-5) % Lymphocytes % (Manual) 11 L (20-40) % Atypical Lymphs % (Man) 3 (0-6) % Monocytes % (Manual) 15 H (2-11) % Eosinophils % (Manual) 1 (0-4) % Metamyelocytes % 1 % Abs Neuts (Manual) 5.5 (2.0-8.3) X10*3/uL Lymphocytes # (Manual) 0.9 L (1.2-4.9) X10*3/uL Atyp Lymphs # (Manual) 0.2 x10*3/uL Monocytes # (Manual) 1.2 (0.1-1.2) X10*3/uL Eosinophils # (Manual) 0.1 (0.0-0.4) X10*3/uL Metamyelocytes # 0.1 X10*3/uL Toxic Vacuolation PRESENT Dohle Bodies PRESENT Platelet Estimate NORMAL (NORMAL) Plt Morphology Comment NORMAL RBC Morphology NORMAL VBG pH 7.43 (7.32-7.43) VBG pCO2 27 mmHg VBG pO2 50 mmHg VBG HCO3 18 L (22-26) mmol/L VBG O2 Saturation 73.0 % VBG Base Excess -4.5 mmol/L Sodium 134 L (135-145) mmol/L Potassium 2.7 L* D (3.3-5.1) mmol/L Chloride 97 (96-108) mmol/L Carbon Dioxide 17 L (22-29) mmol/L Anion Gap 23 H (12-20) BUN 95 H (9-16) mg/dL Creatinine 2.41 H (0.5-1.4) mg/dL Estim Creat Clear Calc 20.0 Estimated GFR 26 Random Glucose 103 (60-115) mg/dL Lactic Acid 1.3 (0.5-2.0) mmol/L Calcium 8.6 (8.4-10.2) mg/dL Magnesium 2.2 (1.6-2.6) mg/dL Total Bilirubin 0.4 (0.0-1.0) mg/dL AST 24 (5-37) U/L ALT 13 (0-40) U/L Alkaline Phosphatase 70 (39-117) U/L Total Protein 7.3 (6.5-8.0) g/dL Albumin 4.0 (3.5-5.0) g/dL Lipase 29 (8-78) U/L Independent Interpretation I performed an independent interpretation of an: EKG (Sinus rhythm VT 172. Tachycardic rate 101. QTC 471. No acute ischemic changes subtle ST depressions V3 to V6 without reciprocal ST elevations) and CT Scan (Dilated bowel loops) Radiology Impression Discussion of test interpretation with radiology: I have reviewed the radiologist's reading. Discharge Plan Discharge Clinical Impression: LONA (acute kidney injury) Patient Disposition: Admitted As Inpatient Interventions: Admission Worksheet (ED) Last Done: 03/20/25 03:59 Discharge Date/Time: 03/20/25 05:10
--- NOTE | 2025-03-19 12:35 | ECG_ITS ---
Test Reason : weakness Blood Pressure : */* mmHG Vent. Rate : 101 BPM Atrial Rate : 101 BPM P-R Int : 172 ms QRS Dur : 94 ms QT Int : 364 ms P-R-T Axes : 32 -1 28 degrees QTcB Int : 471 ms Sinus tachycardia Otherwise normal ECG When compared with ECG of 21-Mar-2023 20:19, ME interval has decreased Questionable change in QRS duration Referred By: Lay Mg Electronically Signed By: Tariq Emerson
[2025-03-19 12:52] VITALS: BP 119/68; PULSE 101; RESP 18; O2SAT 96
--- NOTE | 2025-03-19 12:56 | PC.NURSE ---
84 M presents to ED with abdominal pain 02/22, n/v x 5 days, some diarrhea yesterday but otherwise no BM x 2 weeks, feels weak. Pt sts he ambulates with a walker, has not been able to eat for 2 days. A+OX4, calm, cooperative. Pt denies CP or SOB, RR even and unlabored. Pt has a hoarse voice from reportedly yellowing from pain.
[2025-03-19 13:25] LABS: Hematocrit 37.4 % (42.0-52.0); Hemoglobin 14.0 g/dl (14.0-18.0); Mean Corpuscular HGB Conc 37.4 g/dl (31.0-36.0); Mean Corpuscular Hemoglobin 35.4 pg (27.0-33.0); Mean Corpuscular Volume 94.7 fL (80.0-98.0); NRBC Abs Auto 0.000 X10*3/uL (0.0-0.012); NRBC Pct Auto 0.0 /100WBC (0.0-0.2); Platelet Count 315 X10*3/uL (160-400); Red Blood Count 3.95 X10*6/uL (4.60-5.80); WBC ABN SCTR FOR CBC 1; White Blood Count 7.9 X10*3/uL (4.8-10.8)
[2025-03-19 13:35] LABS: Alanine Aminotransferase 13 U/L (0-40); Albumin Level 4.0 g/dL (3.5-5.0); Alkaline Phosphatase 70 U/L (39-117); Anion Gap 23 (12-20); Aspartate Amino Transferase 24 U/L (5-37); Blood Urea Nitrogen 95 mg/dL (9-16); Calcium 8.6 mg/dL (8.4-10.2); Carbon Dioxide 17 mmol/L (22-29); Chloride 97 mmol/L (96-108); Creatinine Clr Calc Pharmacy 20.0; Estimated Glomerular Filt Rate 26; Lipase 29 U/L (8-78); Magnesium 2.2 mg/dL (1.6-2.6); Potassium 2.7 mmol/L (3.3-5.1); Sodium 134 mmol/L (135-145); Total Protein 7.3 g/dL (6.5-8.0)
[2025-03-19 13:46] LABS: Neutrophils Percent Manual 33 % (45-73)
[2025-03-19 13:50] LABS: Atypical Lymph Absolute Manual 0.2 x10*3/uL; Atypical Lymphs Percent Manual 3 % (0-6); Band Neutrophils Percent 36 % (3-5); Eosinophils Absolute Manual 0.1 X10*3/uL (0.0-0.4); Eosinophils Percent Manual 1 % (0-4); Lymphocytes Absolute Manual 0.9 X10*3/uL (1.2-4.9); Lymphocytes Percent Manual 11 % (20-40); Metamyelocytes Absolute 0.1 X10*3/uL; Metamyelocytes Percent 1 %; Monocytes Absolute Manual 1.2 X10*3/uL (0.1-1.2); Monocytes Percent Manual 15 % (2-11); Neutrophils Absolute Manual 5.5 X10*3/uL (2.0-8.3); RBC Morphology NORMAL
[2025-03-19 13:51] LABS: Dohle Bodies PRESENT; Toxic Vacuolation PRESENT
--- NOTE | 2025-03-19 13:55 | PC.NURSE ---
Potassium 2.7 and elevated bands per lab. Provider notified and patient placed on a monitor.
[2025-03-19] MEDS: KCl 20 mEq in 0.45% Sod 20 MEQ/1,000 ML IV.SOLN 500 MEQ IVCONT ×2 (14:15→17:12)
[2025-03-19 14:16] LABS: Venous Blood Gas Refer to POC result
[2025-03-19 14:17] LABS: VBG HCO3 18 mmol/L (22-26); VBG O2 % Saturation 73.0 %
[2025-03-19 14:53] VITALS: BP 118/62; PULSE 100; RESP 13; TEMP 36.2; O2SAT 97
[2025-03-19 15:31] VITALS: BP 119/68; PULSE 100; RESP 22; O2SAT 97
--- NOTE | 2025-03-19 16:54 | P.CONGS_ITS ---
History of Present Illness Consult details Consult date: 03/19/25 Narrative: 84-year-old male here in the ER because of decline in his overall health. He apparently had a fall last week and has had back pain since then. He had been in the ER 3 times already since that time. Has been complaining of back pain after his fall. He has a has had some problems with poor oral intake with difficulty with swallowing. He denies any vomiting. He has had diarrhea on and off with a past 2-3 weeks he says. He says that he has been weak and appears to have some significant decline in his health steadily. He says that his abdomen has been distended but he denies any significant pain. According to his , he has had significant decline in his cognitive functions as well. 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 He did not undergo adjuvant chemotherapy for this. Review of Systems 2 Constitutional: Constitutional: Denies fever(s), Reports malaise and Reports weakness ENT: Reports dysphagia Cardiovascular: Cardiovascular: Denies chest pain and Reports dyspnea on exertion Respiratory: Respiratory: Denies cough and Reports dyspnea on exertion Gastrointestinal: Gastrointestinal: Denies abdominal pain, Reports dysphagia, Reports diarrhea and Denies vomiting Genitourinary: Genitourinary: Denies difficulty urinating Neurologic: Reports weakness PMFSH Past Medical History Medical History History of colon cancer Left sided abdominal pain History of urinary frequency Adenocarcinoma of cecum HTN (hypertension) Anemia Hyperlipidemia Family History Family History Father No problems noted. Mother No problems noted. Brother Cardiovascular disease Diabetes Surgical History Surgical History S/P right colectomy History of esophagogastroduodenoscopy (EGD) History of colon resection (~2020) Hx of eye surgery H/O colonoscopy History of left inguinal hernia repair (~02/2018) Social History Social History Household Members: Spouse Household Members Other:: Housing: Apartment Are you a primary childcare teacher to a significant other at home: No Do you presently have visiting nurse or other home services: No (would like some) Alcohol intake: current Alcohol intake frequency: 3 or more drinks per day Alcohol type: wine Patient Tobacco Use Status: Never used Tobacco e-Cigarette/Vaping Use: Never Used Second Hand Smoke Exposure: No Advance Directives Date on File: 04/12/21 service: No Current occupational status: retired Cognitive needs: No Hearing needs: No Vision needs: Yes (glasses) Meds Allergies Allergy/AdvReac Type Severity Reaction Status Date / Time lisinopril Allergy Severe lip Verified 03/19/25 12:21 swelling hydrochlorothiazide AdvReac Severe dizziness/ Verified 03/19/25 12:21 hyponatremia Active Medications: Current Medications Potassium Chloride/Sodium Chloride (Kcl 20 Meq In 0.45% Sod) 20 meq in 1,000 mls @ 500 mls/hr IVCONT .Q2H JUAN Last Admin: 03/19/25 14:15 Dose: 500 mls/hr Potassium Chloride (Potassium Chloride/H20) 10 meq in 100 mls @ 100 mls/hr IV Q1H JUAN Stop: 03/19/25 20:14 Home Medications ?Medication ?Instructions ?Recorded ?Confirmed ?Last Taken ?Type lorazepam 0.5 mg tablet 0.5 mg PO BID PRN insomnia 0 03/15/25 03/19/25 03/11/25 History omeprazole 40 mg capsule,delayed 40 mg PO DAILY@0630 0 03/19/25 03/19/25 03/12/25 History release Physical Exam 2 Vital Signs: Vital Signs: Last Vital Signs Temp 97.2 F 03/19/25 14:53 Pulse 100 03/19/25 15:31 Resp 22 H 03/19/25 15:31 BP 119/68 03/19/25 15:31 Pulse Ox 97 03/19/25 15:31 O2 Del Method Room Air 03/19/25 15:31 BMI result Body Mass Index 21.3 Const: Other: Looks frail now and weak, very hoarse voice General: comfortable and no acute distress Resp: Effort & Inspection: normal respiratory effort Cardio: Rhythm: regular rhythm GI: Other: Soft, distended and protuberant with no guarding, no tenderness, no rebound, no guarding, no tenderness on the right groin Results Labs 03/25/25 05:59 03/25/25 05:59 Labs: Abnormal lab results 03/19/25 03/19/25 Range/Units 13:11 14:12 RBC 3.95 L (4.60-5.80) X10*6/uL Hct 37.4 L (42.0-52.0) % MCH 35.4 H (27.0-33.0) pg MCHC 37.4 H (31.0-36.0) g/dl Neutrophils % (Manual) 33 L (45-73) % Band Neutrophils % 36 H (3-5) % Lymphocytes % (Manual) 11 L (20-40) % Monocytes % (Manual) 15 H (2-11) % Lymphocytes # (Manual) 0.9 L (1.2-4.9) X10*3/uL VBG HCO3 18 L (22-26) mmol/L Sodium 134 L (135-145) mmol/L Potassium 2.7 L* D (3.3-5.1) mmol/L Carbon Dioxide 17 L (22-29) mmol/L Anion Gap 23 H (12-20) BUN 95 H (9-16) mg/dL Creatinine 2.41 H (0.5-1.4) mg/dL Short CBC 03/19/25 Range/Units 13:11 WBC 7.9 (4.8-10.8) X10*3/uL Hgb 14.0 (14.0-18.0) g/dl Hct 37.4 L (42.0-52.0) % Plt Count 315 D (160-400) X10*3/uL BMP 03/19/25 13:11 Sodium 134 L Potassium 2.7 L* D Chloride 97 Carbon Dioxide 17 L BUN 95 H Creatinine 2.41 H Calcium 8.6 Liver Function 03/19/25 Range/Units 13:11 Total Bilirubin 0.4 (0.0-1.0) mg/dL AST 24 (5-37) U/L ALT 13 (0-40) U/L Alkaline Phosphatase 70 (39-117) U/L Albumin 4.0 (3.5-5.0) g/dL All other labs normal. Imaging Abdomen CT scan report/results: report reviewed and image reviewed CT scan - pelvis: report reviewed and image reviewed Additional studies: CT/CT abdomen pelvis wo IV con IMPRESSION: Fluid distended small and large bowel without a transitional zone consistent with a paralytic ileus with increasing small bowel dilation with compared to the prior. There is a right inguinal hernia involving a single wall of small bowel but not causing compression/obstruction. High density layering in the gallbladder fundus could represent vicarious excretion of contrast, stones, or sludge. Chronic pancreatitis. Linear scarring and atelectasis in the posterior lateral base of the right lower lobe is stable. Fleischner guidelines were followed. Electronically signed by: Spencer Velasquez MD 03/19/2025 02:55 PM EDT RP Assessment and Plan (1) Ileus: Status: Acute He has had abdominal distention, along with poor oral intake, difficulty swallowing and diarrhea for the past few weeks. He also had a fall last week and has had back pain since then I have reviewed his CAT scan from today. This shows diffuse distention of the bowel all the way to the distal colon with no identifiable transition point. He has a right inguinal hernia with a small bowel loop but this has not obstructing . His abdominal exam is very benign despite the distention and protuberance. Clinically, he does not seem to be obstructed but is presenting more of an ileus type picture. He has metabolic derangement from fluid losses from his severe diarrhea in combination with poor oral intake. He has been creatinine is markedly elevated. His potassium is low so these to be corrected with IV fluids. He seemed to have significant decline of itself recently. He may have some small sips of liquids as well as ice chips for now. We will follow along closely while he is in the hospital. I had discussed the above with his as well. Procedures Date of Service Date of Service: 03/26/25
--- NOTE | 2025-03-19 17:02 | P.HPHOSP_ITS ---
History of Present Illness Date of Service: 03/19/25 Attending physician on admission: Rosy Arnold Chief Complaint: abdominal distention This is an 84-year-old male who presents to the emergency department with abdominal distention. Patient reports increasing bloating over the past week although outpatient notes put it at two weeks. CT scan of the abdomen on March 15 shows dilation of the small bowel to the level of the anastomosis without a discrete obstructing lesion, findings may reflect ileus. Patient was discharged home at that time. Repeat CT scan today showing fluid distended small and large bowel without a transition zone consistent with a paralytic ileus with increasing small-bowel dilation compared to prior. Lab work showed increase in renal function with a creatinine of 2.41, hypokalemia with potassium of 2.7. The patient states he has been unable to tolerate any p.o. for the past 1 week. He has had liquid stools, no solid bowel movement for the past 1 week. He was treated with IV fluid and the decision was made to admit him for further management. Review of Systems 2 Review of Systems: Yes all other systems are reviewed and are negative Constitutional: Constitutional: Denies chills and Denies fever(s) Cardiovascular: Cardiovascular: Denies chest pain Gastrointestinal: Gastrointestinal: Reports abdominal pain, Reports diarrhea and Reports vomiting [facility] Medical History History of colon cancer Left sided abdominal pain History of urinary frequency Adenocarcinoma of cecum HTN (hypertension) Anemia Hyperlipidemia Family History Father No problems noted. Mother No problems noted. Brother Cardiovascular disease Diabetes Surgical History S/P right colectomy History of esophagogastroduodenoscopy (EGD) History of colon resection (~2020) Hx of eye surgery H/O colonoscopy History of left inguinal hernia repair (~02/2018) Social History Household Members: Significant Other Housing: House Are you a primary rn long term care to a significant other at home: No Do you presently have visiting nurse or other home services: No Alcohol intake: current Alcohol intake frequency: 3 or more drinks per day Alcohol type: wine Patient Tobacco Use Status: Never used Tobacco Smoked in Last 30 Days: No e-Cigarette/Vaping Use: Never Used Second Hand Smoke Exposure: No Use of substances other than those prescribed or required for medical reasons: No Advance Directives: Yes Advance Directives on File: Yes Advance Directives Date on File: 04/12/21 service: No Current occupational status: retired Cognitive needs: No Hearing needs: No Vision needs: Yes (glasses) Meds Allergies Allergy/AdvReac Type Severity Reaction Status Date / Time lisinopril Allergy Severe lip Verified 03/19/25 12:21 swelling hydrochlorothiazide AdvReac Severe dizziness/ Verified 03/19/25 12:21 hyponatremia Active Medications: Current Medications Acetaminophen (Acetaminophen 325 Mg Tablet) 650 mg PO Q6H PRN PRN Reason: Pain, Mild 1-3,fever,headache Calcium Carbonate (Calcium Carbonate 750 Mg Tab.Chew) 750 mg PO Q4H PRN PRN Reason: Heartburn Potassium Chloride/Sodium Chloride (Kcl 20 Meq In 0.45% Sod) 20 meq in 1,000 mls @ 500 mls/hr IVCONT .Q2H JUAN Last Admin: 03/19/25 14:15 Dose: 500 mls/hr Potassium Chloride (Potassium Chloride/H20) 10 meq in 100 mls @ 100 mls/hr IV Q1H JUAN Stop: 03/19/25 20:14 Lactated Ringer's (Lr) 1,000 mls @ 100 mls/hr IVCONT .Q10H JUAN Magnesium Hydroxide (Milk Of Magnesia 30 Ml Oral.Susp) 30 ml PO DAILY PRN PRN Reason: Constipation Melatonin (Melatonin 3 Mg Tablet) 6 mg PO BEDTIME PRN PRN Reason: Insomnia Sodium Chloride (0.9 % Sodium Chloride Flush 3 Ml Syringe) 3 ml IVFLUSH QSHIFT [facility] Home Medications ?Medication ?Instructions ?Recorded ?Confirmed ?Last Taken ?Type lorazepam 0.5 mg tablet 0.5 mg PO BID PRN insomnia 0 03/15/25 03/19/25 03/11/25 History omeprazole 40 mg capsule,delayed 40 mg PO DAILY@0630 0 03/19/25 03/19/25 03/12/25 History release Physical Exam 2 Vital Signs and Narrative: Vital Signs: Last Vital Signs Temp 97.2 F 03/19/25 14:53 Pulse 100 03/19/25 15:31 Resp 22 H 03/19/25 15:31 BP 119/68 03/19/25 15:31 Pulse Ox 97 03/19/25 15:31 O2 Del Method Room Air 03/19/25 15:31 BMI result Body Mass Index 21.3 Const: Other: voice - horse General: cooperative, comfortable, alert and awake Nutritional Appearance: average body habitus Orientation/consciousness: patient oriented x3 Resp: Effort & Inspection: normal respiratory effort, able to speak in complete sentences, no respiratory distress and no use of accessory muscles Cardio: Rate: regular rate GI: Other: softly distended, no guarding or rebound Neuro: General: patient oriented x3, moves all extremities and CN's II-XI intact bilaterally Results Labs 03/19/25 13:11 03/19/25 13:11 Labs: Laboratory Results - last 24 hr 03/19/25 03/19/25 13:11 14:12 MCV 94.7 D MCH 35.4 H MCHC 37.4 H RDW 13.4 Plt Count 315 D MPV 10.9 Immature Gran % (Auto) Cancelled Neut % (Auto) Cancelled Lymph % (Auto) Cancelled [place] % (Auto) Cancelled Eos % (Auto) Cancelled Baso % (Auto) Cancelled Lymph # (Auto) Cancelled [place] # (Auto) Cancelled Eos # (Auto) Cancelled Baso # (Auto) Cancelled Abs Immat Gran (auto) Cancelled Absolute Neuts (auto) Cancelled Absolute Nucleated RBC 0.000 Nucleated RBC % (auto) 0.0 Neutrophils % (Manual) 33 L Band Neutrophils % 36 H Lymphocytes % (Manual) 11 L Atypical Lymphs % (Man) 3 Monocytes % (Manual) 15 H Eosinophils % (Manual) 1 Metamyelocytes % 1 Abs Neuts (Manual) 5.5 Lymphocytes # (Manual) 0.9 L Atyp Lymphs # (Manual) 0.2 Monocytes # (Manual) 1.2 Eosinophils # (Manual) 0.1 Metamyelocytes # 0.1 Toxic Vacuolation PRESENT Dohle Bodies PRESENT Platelet Estimate NORMAL Plt Morphology Comment NORMAL RBC Morphology NORMAL VBG pH 7.43 VBG pCO2 27 VBG pO2 50 VBG HCO3 18 L VBG O2 Saturation 73.0 VBG Base Excess -4.5 Anion Gap 23 H Estim Creat Clear Calc 20.0 Estimated GFR 26 Random Glucose 103 Lactic Acid 1.3 Calcium 8.6 Magnesium 2.2 Total Bilirubin 0.4 AST 24 ALT 13 Alkaline Phosphatase 70 Total Protein 7.3 Albumin 4.0 Lipase 29 Imaging Radiologist's Impressions: Impressions Abdomen/Pelvis CT 03/19/25 13:21 IMPRESSION: Fluid distended small and large bowel without a transitional zone consistent with a paralytic ileus with increasing small bowel dilation with compared to the prior. There is a right inguinal hernia involving a single wall of small bowel but not causing compression/obstruction. High density layering in the gallbladder fundus could represent vicarious excretion of contrast, stones, or sludge. Chronic pancreatitis. Linear scarring and atelectasis in the posterior lateral base of the right lower lobe is stable. Fleischner guidelines were followed. Electronically signed by: Spencer Velasquez MD 03/19/2025 02:55 PM EDT RP Assessment and Plan (1) Ileus: Status: Acute Plan This is an 84-year-old male with a history of colon cancer status post right colectomy who presents to the emergency department with abdominal distention found to have LONA, hypokalemia, ileus Ileus May be due to underlying hypokalemia NPO IV fluid Conservative management Treat underlying hypokalemia Check stool studies surgical consult hold non-essential po meds Hypokalemia Magnesium normal IV potassium replacement Repeat potassium level after IV replacement completed, ordered for 8 pm LONA Likely prerenal due to decreased p.o. intake over the past week No obstruction on CT scan IV fluid Follow renal function HTN continue norvasc gerd continue PPI HLD hold statin BPH continue proscar mood continue sertraline, lorazepam DVT prophylaxis-mechanical devices Patient will likely require 2 midnight stay in the hospital for management of ileus, LONA and hypokalemia requiring specialist evaluation and close monitoring of electrolytes Quality Stroke Does the patient have a stroke diagnosis?: No VTE Prior VTE?: No VTE Risk Level:: Medical - moderate - high VTE Device Contraindication: N/A - Device Ordered VTE Drug Contraindication: Treatment Not Indicated
[2025-03-19] MEDS: Potassium Chloride/H20 10 MEQ/100 ML PIGGYBACK 100 MEQ IV ×2 (17:56→19:17)
[2025-03-19 18:10] LABS: Troponin-I High Sensitivity 7.3 ng/L (<3.5-35.0)
--- NOTE | 2025-03-19 18:15 | PHA.MEDREC ---
Addendum entered by Rosas Quinones PharmD 03/19/25 18:19: reviewed Original Note: Pharmacy Consult ? Medication Reconciliation Pharmacy has completed the medication reconciliation. Spoke to patient at bedside to confirm med list . had a list of patients medications on her phone. states patient is no longer taking Vitamin B-12 1,000 mg, Cyclobenzaprine 10 mg, Docusate sod 100 mg, Loperamide 2 mg, Naproxen 500 mg, Simethicone 125 mg, and Tamsulosin 0.4 mg. states patient hasn't had any medications in over a week because he felt sick.
[2025-03-19] MEDS: Lactated Ringers 1,000 ML 100 ML IVCONT (18:45)
[2025-03-19 19:21] VITALS: BP 111/63; PULSE 90; RESP 22; O2SAT 96
[2025-03-19 20:47] LABS: Potassium 3.3 mmol/L (3.3-5.1)
[2025-03-19] MEDS: Potassium Chloride/H20 10 MEQ/100 ML PIGGYBACK 80 MEQ IV ×2 (21:04→22:12)
--- NOTE | 2025-03-19 21:47 | MHC.EDTECH ---
Routine Consult for general surgery received by answering service @[phone]
[2025-03-19 23:05] LABS: CDiff Gene PCR NEGATIVE (Negative)
[2025-03-20] VITALS (10 sets, daily range): BP systolic 107–139; BP diastolic 58–71; PULSE 62–99; RESP 17–21; TEMP 36.1–37.2; O2SAT 95–99; BMI 21.4
--- NOTE | 2025-03-20 00:24 | PC.NURSE ---
Spoke with lab and made them aware patient is requesting a slower rate as the potassium is painful through his peripheral IV. Told lab to wait and we would make them aware when potassium was done in order to get an accurate lab draw. Noted in chart the lab was still drawn at 8 pm, at that time, the patient only had 1.5 bags of 10meq intravenous potassium. Spoke with Dr. Boo covering the patient as his hospitalist juan c, clarified the situation that occurred. Dr. Boo stated we can recheck the potassium in the morning, and to d/c the oral potassium ordered.
[2025-03-20] MEDS: Lactated Ringers 1,000 ML 100 ML IVCONT ×3 (04:10→23:25)
--- NOTE | 2025-03-20 08:03 | P.PNGS_ITS ---
Subjective Subjective Date of Service: 03/20/25 <Tangela Geronimo PA-C - Last Filed: 03/20/25 08:09> 03/20/25 <Nadeem Saldaña MD - Last Filed: 03/20/25 14:42> Interval history: Feels improved this morning, reports less abd pain, feels slightly less bloated. Has been passing flatus and had a BM. <Tangela Geronimo PA-C - Last Filed: 03/20/25 08:09> Physical Exam 2 Vital Signs: Vital Signs: Last Vital Signs Temp 97.5 F 03/20/25 05:26 Pulse 90 03/20/25 05:26 Resp 18 03/20/25 05:26 BP 128/65 03/20/25 05:26 Pulse Ox 96 03/20/25 05:26 O2 Del Method Room Air 03/20/25 05:26 BMI result Body Mass Index 21.4 <ERMA Mak Last Filed: 03/20/25 08:09> Const: General: comfortable, no acute distress and alert <aTngela Geronimo PA-C - Last Filed: 03/20/25 08:09> Resp: Effort & Inspection: normal respiratory effort <ERMA Mak Last Filed: 03/20/25 08:09> GI: Other: abd remains distended and tympanitic but soft, nontender <Tangela Geronimo PA-C - Last Filed: 03/20/25 08:09> Skin: General skin exam: no rashes or lesions noted <ERMA Mak Last Filed: 03/20/25 08:09> Neuro: General: moves all extremities <ERMA Mak Last Filed: 03/20/25 08:09> Objective Data Active Medications Acetaminophen (Acetaminophen 325 Mg Tablet) 650 mg PO Q6H PRN PRN Reason: Pain, Mild 1-3,fever,headache Amlodipine Besylate (Amlodipine Besylate 5 Mg Tablet) 5 mg PO DAILY [facility]; Protocol Calcium Carbonate (Calcium Carbonate 750 Mg Tab.Chew) 750 mg PO Q4H PRN PRN Reason: Heartburn Finasteride (Finasteride 5 Mg Tablet) 5 mg PO DAILY [facility] Lactated Ringer's (Lr) 1,000 mls @ 100 mls/hr IVCONT .Q10H [facility] Last Admin: 03/20/25 04:10 Dose: 100 mls/hr Documented By: ISAAC Lorazepam (Lorazepam 0.5 Mg Tablet) 0.5 mg PO BID PRN PRN Reason: Insomnia Magnesium Hydroxide (Milk Of Magnesia 30 Ml Oral.Susp) 30 ml PO DAILY PRN PRN Reason: Constipation Melatonin (Melatonin 3 Mg Tablet) 6 mg PO BEDTIME PRN PRN Reason: Insomnia Morphine Sulfate (Morphine Sulfate 2 Mg/Ml Cartridge) 2 mg IVPUSH Q4H PRN; Protocol PRN Reason: Pain, Severe (Pain Scale 7-10) Omeprazole (Omeprazole 40 Mg Capsule.Dr) 40 mg PO DAILY@0630 [facility] Last Admin: 03/20/25 05:31 Dose: 40 mg Documented By: BRIAN Sertraline HCl (Sertraline Hcl 25 Mg Tablet) 25 mg PO DAILY [facility] Sodium Chloride (0.9 % Sodium Chloride Flush 3 Ml Syringe) 3 ml IVFLUSH QSHIFT [facility] Last Admin: 03/20/25 00:37 Dose: Not Given Documented By: ISAAC Non-Admin Reason: IV Running <Tangela Geronimo PA-C - Last Filed: 03/20/25 08:09> Labs CBC & Chem 7: 03/20/25 09:14 03/20/25 09:14 <Tangela Geronimo PA-C - Last Filed: 03/20/25 08:09> Labs: Laboratory Results - last 24 hr 03/19/25 03/19/25 03/19/25 13:11 14:12 20:14 MCV 94.7 D MCH 35.4 H MCHC 37.4 H RDW 13.4 Plt Count 315 D MPV 10.9 Immature Gran % (Auto) Cancelled Neut % (Auto) Cancelled Lymph % (Auto) Cancelled [place] % (Auto) Cancelled Eos % (Auto) Cancelled Baso % (Auto) Cancelled Lymph # (Auto) Cancelled [place] # (Auto) Cancelled Eos # (Auto) Cancelled Baso # (Auto) Cancelled Abs Immat Gran (auto) Cancelled Absolute Neuts (auto) Cancelled Absolute Nucleated RBC 0.000 Nucleated RBC % (auto) 0.0 Neutrophils % (Manual) 33 L Band Neutrophils % 36 H Lymphocytes % (Manual) 11 L Atypical Lymphs % (Man) 3 Monocytes % (Manual) 15 H Eosinophils % (Manual) 1 Metamyelocytes % 1 Abs Neuts (Manual) 5.5 Lymphocytes # (Manual) 0.9 L Atyp Lymphs # (Manual) 0.2 Monocytes # (Manual) 1.2 Eosinophils # (Manual) 0.1 Metamyelocytes # 0.1 Toxic Vacuolation PRESENT Dohle Bodies PRESENT Platelet Estimate NORMAL Plt Morphology Comment NORMAL RBC Morphology NORMAL VBG pH 7.43 VBG pCO2 27 VBG pO2 50 VBG HCO3 18 L VBG O2 Saturation 73.0 VBG Base Excess -4.5 Anion Gap 23 H Estim Creat Clear Calc 20.0 Estimated GFR 26 Random Glucose 103 Lactic Acid 1.3 Calcium 8.6 Magnesium 2.2 Total Bilirubin 0.4 AST 24 ALT 13 Alkaline Phosphatase 70 Total Protein 7.3 Albumin 4.0 Lipase 29 C. difficile Tox B Gene NEGATIVE <Tangela Geronimo PA-C - Last Filed: 03/20/25 08:09> Procedures Date of Service Date of Service: 03/20/25 <Tangela Geronimo PA-C - Last Filed: 03/20/25 08:09> 03/20/25 <Nadeem Saldaña MD - Last Filed: 03/20/25 14:42> Progress Note: A&P Assessment and plan (1) Ileus: Status: Acute <Tangela Geronimo PA-C - Last Filed: 03/20/25 08:09> Assessment and Plan: Denies any pain of the abdomen although feels bloated Passing flatus and BMs No nausea or vomiting Abdomen remained soft even if distended Overall clinical picture suggestive of ileus rather than obstruction His also says he has had significant decline in overall health and cognitive functions the past few weeks Correct electrolyte abnormalities Ambulate We will continue to follow Seen and examined independently <Nadeem Saldaña MD - Last Filed: 03/20/25 14:42> Assessment and Plan: Admitted with ileus type picture, metabolic derangements. Some evidence of return of GI function but remains significantly distended this morning, soft. Correct electrolytes. Cont sips for now until more consistent flatus and abd becomes less distended. Encouraged OOB and increasing activity to promote more GI function. Patient comfortable with plan. <Tangela Geronimo PA-C - Last Filed: 03/20/25 08:09> Time Spent With Patient Time: Total time managing care of this patient today ____ minutes. <Tangela Geronimo PA-C - Last Filed: 03/20/25 08:09> Quality Stroke Does the patient have a stroke diagnosis?: No <Tangela Geronimo PA-C - Last Filed: 03/20/25 08:09> VTE Prior VTE?: No <Tangela Geronimo PA-C - Last Filed: 03/20/25 08:09> VTE Risk Level:: Medical - moderate - high <Tangela Geronimo PA-C - Last Filed: 03/20/25 08:09> VTE Device Contraindication: N/A - Device Ordered <ERMA Mak Last Filed: 03/20/25 08:09> VTE Drug Contraindication: Treatment Not Indicated <Tangela Geronimo PA-C - Last Filed: 03/20/25 08:09>
[2025-03-20] MEDS: 0.9 % Sodium Chloride Flush 3 ML SYRINGE IVFLUSH (08:32)
--- NOTE | 2025-03-20 08:53 | MHC.CM.PN ---
IMM given 03/20. Pt self-care, lives at home with his who will transport him home at discharge. Pt states he uses a walker when needed. HCP on file and verified. Pt states he would be open to getting outpt rehab or home PT at discharge if it were recommended. PCP: Rocael HUNT
[2025-03-20 09:51] LABS: Hematocrit 36.6 % (42.0-52.0); Hemoglobin 13.3 g/dl (14.0-18.0); Mean Corpuscular HGB Conc 36.3 g/dl (31.0-36.0); Mean Corpuscular Hemoglobin 34.8 pg (27.0-33.0); Mean Corpuscular Volume 95.8 fL (80.0-98.0); NRBC Abs Auto 0.000 X10*3/uL (0.0-0.012); NRBC Pct Auto 0.0 /100WBC (0.0-0.2); Platelet Count 324 X10*3/uL (160-400); Red Blood Count 3.82 X10*6/uL (4.60-5.80); White Blood Count 8.6 X10*3/uL (4.8-10.8)
[2025-03-20 10:24] LABS: Anion Gap 22 (12-20); Blood Urea Nitrogen 68 mg/dL (9-16); Calcium 8.5 mg/dL (8.4-10.2); Carbon Dioxide 15 mmol/L (22-29); Chloride 101 mmol/L (96-108); Creatinine Clr Calc Pharmacy 35.3; Estimated Glomerular Filt Rate 50; Potassium 3.1 mmol/L (3.3-5.1); Sodium 135 mmol/L (135-145)
--- NOTE | 2025-03-20 12:19 | P.PNIM_ITS ---
Subjective Subjective Date of Service: 03/20/25 Interval History: Patient reports having soft small nearly formed stool this a.m. with some mild relief in abdominal distention and pain Abdominal exam other than distention remains benign Surgery consulted C diff negative Electrolytes are being repleted to go We will advance diet Review of Systems Review of Systems: Yes all other systems are reviewed and are negative Physical Exam 2 Vital Signs: Vital Signs: Last Vital Signs Temp 97.0 F 03/20/25 08:00 Pulse 90 03/20/25 08:00 Resp 20 03/20/25 08:00 BP 122/65 03/20/25 08:34 Pulse Ox 96 03/20/25 08:00 O2 Del Method Room Air 03/20/25 08:00 BMI result Body Mass Index 21.4 Const: General: comfortable, no acute distress and alert Resp: Effort & Inspection: normal respiratory effort GI: Other: abd remains distended and tympanitic but soft, nontender Skin: General skin exam: no rashes or lesions noted Neuro: General: moves all extremities Objective Data Active Medications Acetaminophen (Acetaminophen 325 Mg Tablet) 650 mg PO Q6H PRN PRN Reason: Pain, Mild 1-3,fever,headache Amlodipine Besylate (Amlodipine Besylate 5 Mg Tablet) 5 mg PO DAILY [facility]; Protocol Last Admin: 03/20/25 08:34 Dose: 5 mg Documented By: FRANKLYN Calcium Carbonate (Calcium Carbonate 750 Mg Tab.Chew) 750 mg PO Q4H PRN PRN Reason: Heartburn Finasteride (Finasteride 5 Mg Tablet) 5 mg PO DAILY [facility] Last Admin: 03/20/25 08:34 Dose: 5 mg Documented By: FRANKLYN Lactated Ringer's (Lr) 1,000 mls @ 100 mls/hr IVCONT .Q10H [facility] Last Admin: 03/20/25 04:10 Dose: 100 mls/hr Documented By: ISAAC Lorazepam (Lorazepam 0.5 Mg Tablet) 0.5 mg PO BID PRN PRN Reason: Insomnia Magnesium Hydroxide (Milk Of Magnesia 30 Ml Oral.Susp) 30 ml PO DAILY PRN PRN Reason: Constipation Melatonin (Melatonin 3 Mg Tablet) 6 mg PO BEDTIME PRN PRN Reason: Insomnia Morphine Sulfate (Morphine Sulfate 2 Mg/Ml Cartridge) 2 mg IVPUSH Q4H PRN; Protocol PRN Reason: Pain, Severe (Pain Scale 7-10) Omeprazole (Omeprazole 40 Mg Capsule.Dr) 40 mg PO DAILY@0630 [facility] Last Admin: 03/20/25 05:31 Dose: 40 mg Documented By: BRIAN Sertraline HCl (Sertraline Hcl 25 Mg Tablet) 25 mg PO DAILY [facility] Last Admin: 03/20/25 08:34 Dose: 25 mg Documented By: FRANKLYN Sodium Chloride (0.9 % Sodium Chloride Flush 3 Ml Syringe) 3 ml IVFLUSH QSHIFT [facility] Last Admin: 03/20/25 08:32 Dose: 3 ml Documented By: FRANKLYN Labs 03/20/25 09:14 03/20/25 09:14 Labs: Laboratory Results - last 24 hr 03/19/25 03/19/25 03/19/25 13:11 14:12 20:14 MCV 94.7 D MCH 35.4 H MCHC 37.4 H RDW 13.4 Plt Count 315 D MPV 10.9 Immature Gran % (Auto) Cancelled Neut % (Auto) Cancelled Lymph % (Auto) Cancelled [place] % (Auto) Cancelled Eos % (Auto) Cancelled Baso % (Auto) Cancelled Lymph # (Auto) Cancelled [place] # (Auto) Cancelled Eos # (Auto) Cancelled Baso # (Auto) Cancelled Abs Immat Gran (auto) Cancelled Absolute Neuts (auto) Cancelled Absolute Nucleated RBC 0.000 Nucleated RBC % (auto) 0.0 Neutrophils % (Manual) 33 L Band Neutrophils % 36 H Lymphocytes % (Manual) 11 L Atypical Lymphs % (Man) 3 Monocytes % (Manual) 15 H Eosinophils % (Manual) 1 Metamyelocytes % 1 Abs Neuts (Manual) 5.5 Lymphocytes # (Manual) 0.9 L Atyp Lymphs # (Manual) 0.2 Monocytes # (Manual) 1.2 Eosinophils # (Manual) 0.1 Metamyelocytes # 0.1 Toxic Vacuolation PRESENT Dohle Bodies PRESENT Platelet Estimate NORMAL Plt Morphology Comment NORMAL RBC Morphology NORMAL VBG pH 7.43 VBG pCO2 27 VBG pO2 50 VBG HCO3 18 L VBG O2 Saturation 73.0 VBG Base Excess -4.5 Anion Gap 23 H Estim Creat Clear Calc 20.0 Estimated GFR 26 Random Glucose 103 Lactic Acid 1.3 Calcium 8.6 Magnesium 2.2 Total Bilirubin 0.4 AST 24 ALT 13 Alkaline Phosphatase 70 Total Protein 7.3 Albumin 4.0 Lipase 29 C. difficile Tox B Gene NEGATIVE 03/20/25 09:14 MCV 95.8 MCH 34.8 H MCHC 36.3 H RDW 13.9 Plt Count 324 MPV 11.6 Immature Gran % (Auto) Neut % (Auto) Lymph % (Auto) [place] % (Auto) Eos % (Auto) Baso % (Auto) Lymph # (Auto) [place] # (Auto) Eos # (Auto) Baso # (Auto) Abs Immat Gran (auto) Absolute Neuts (auto) Absolute Nucleated RBC 0.000 Nucleated RBC % (auto) 0.0 Neutrophils % (Manual) Band Neutrophils % Lymphocytes % (Manual) Atypical Lymphs % (Man) Monocytes % (Manual) Eosinophils % (Manual) Metamyelocytes % Abs Neuts (Manual) Lymphocytes # (Manual) Atyp Lymphs # (Manual) Monocytes # (Manual) Eosinophils # (Manual) Metamyelocytes # Toxic Vacuolation Dohle Bodies Platelet Estimate Plt Morphology Comment RBC Morphology VBG pH VBG pCO2 VBG pO2 VBG HCO3 VBG O2 Saturation VBG Base Excess Anion Gap 22 H Estim Creat Clear Calc 35.3 Estimated GFR 50 Random Glucose 64 Lactic Acid Calcium 8.5 Magnesium Total Bilirubin AST ALT Alkaline Phosphatase Total Protein Albumin Lipase C. difficile Tox B Gene Assessment and Plan (1) Ileus: Status: Acute Plan 84-year-old male with a history of colon cancer status post right colectomy who presents to the emergency department with abdominal distention found to have LONA, hypokalemia, ileus. Likely in the setting of recent GI issues-chronic constipation versus colitis Ileus Patient reportedly has chronic constipation and continues to be constipated however there is an acute change in his current clinical condition. He also reports multiple falls for which trauma workup thus far has been negative. However, we have hydrated him and repleted electrolytes to goal with some mild improvement. He however continues to have significant abdominal distention, however with the passage of flatus and some 1 time bowel movement soft, we believe that it could be in the setting of ileus and we will challenge him with diet as he is able to tolerate p.o. intake. We tried stool studies however the sample was not enough. Hence we will check the stool studies again. C diff PCR toxin B gene negative Currently no signs of overt sepsis and hence we will limit antibiotics to prevent fulminant C diff Continue IV hydration Continue IV fluids can DC if patient able to tolerate p.o. intake Check electrolytes and replete to goal next item surgery consulted and following Chronic constipation We will be cautious about bowel regimen given concern for rupture DVT Prophylaxis with Lovenox This note is constructed using voice recognition software. While every effort has been made to ensure accuracy, rn telehealth errors may have been included. Quality Stroke Does the patient have a stroke diagnosis?: No VTE Prior VTE?: No VTE Risk Level:: Medical - moderate - high VTE Device Contraindication: N/A - Device Ordered VTE Drug Contraindication: Treatment Not Indicated
[2025-03-20] MEDS: Potassium Chloride ER 20 MEQ TAB.ER.PRT 40 MEQ PO (12:20)
[2025-03-20 13:24] LABS: Venous Blood Gas Refer to POC result
[2025-03-20 13:26] LABS: VBG HCO3 14 mmol/L (22-26); VBG O2 % Saturation 80.0 %
--- NOTE | 2025-03-20 14:42 | PM.EVENT ---
Event Note Date of Service: 03/20/25 Event Note: Seen on afternoon rounds Says he is more comfortable Abdomen soft, distended but with no guarding or rebound no tenderness Tolerating clear liquids He says he still have some diarrhea although this has improved Check stools for C diff? Okay to try to advance diet as tolerated Correct metabolic derangement at bedside Time Spent With Patient Time: Total time managing care of this patient today ____ minutes.
[2025-03-20 15:54] LABS: E. coli EAEC Not Detected (Not Detect.); E. coli EPEC Not Detected (Not Detect.); E. coli ETEC Not Detected (Not Detect.); E. coli STEC Not Detected (Not Detect.); Shigella sp./EIEC Not Detected (Not Detect.)
[2025-03-21] VITALS (7 sets, daily range): BP systolic 117–139; BP diastolic 61–72; PULSE 88–101; RESP 16–18; TEMP 36.2–37.2; O2SAT 94–96
--- NOTE | 2025-03-21 07:56 | HO.PM.IMPN ---
Subjective Subjective Date of Service: 03/21/25 Interval History: Abdominal exam other than distention remains benign Surgery consulted C diff negative Electrolytes are being repleted to go Review of Systems Review of Systems: Yes all other systems are reviewed and are negative Physical Exam Vital Signs: Vital Signs: Last Vital Signs Temp 99.0 F 03/21/25 07:54 Pulse 88 03/21/25 07:54 Resp 18 03/21/25 07:54 BP 117/61 03/21/25 07:54 Pulse Ox 96 03/21/25 07:54 O2 Del Method Room Air 03/21/25 07:54 BMI result Body Mass Index 21.4 Const: General: comfortable, no acute distress and alert Resp: Effort & Inspection: normal respiratory effort GI: Other: abd remains distended and tympanitic but soft, nontender Skin: General skin exam: no rashes or lesions noted Neuro: General: moves all extremities Objective Data Active Medications Acetaminophen (Acetaminophen 325 Mg Tablet) 650 mg PO Q6H PRN PRN Reason: Pain, Mild 1-3,fever,headache Last Admin: 03/20/25 23:24 Dose: 650 mg Documented By: SUNNY Amlodipine Besylate (Amlodipine Besylate 5 Mg Tablet) 5 mg PO DAILY [facility]; Protocol Last Admin: 03/20/25 08:34 Dose: 5 mg Documented By: FRANKLYN Calcium Carbonate (Calcium Carbonate 750 Mg Tab.Chew) 750 mg PO Q4H PRN PRN Reason: Heartburn Enoxaparin Sodium (Enoxaparin Sodium 40 Mg/0.4 Ml Syringe) 40 mg SUBCUT Q24H [facility] Last Admin: 03/20/25 16:39 Dose: 40 mg Documented By: FRANKLYN Finasteride (Finasteride 5 Mg Tablet) 5 mg PO DAILY [facility] Last Admin: 03/20/25 08:34 Dose: 5 mg Documented By: FRANKLYN Lactated Ringer's (Lr) 1,000 mls @ 100 mls/hr IVCONT .Q10H [facility] Last Admin: 03/20/25 23:25 Dose: 100 mls/hr Documented By: SUNNY Lorazepam (Lorazepam 0.5 Mg Tablet) 0.5 mg PO BID PRN PRN Reason: Insomnia Magnesium Hydroxide (Milk Of Magnesia 30 Ml Oral.Susp) 30 ml PO DAILY PRN PRN Reason: Constipation Melatonin (Melatonin 3 Mg Tablet) 6 mg PO BEDTIME PRN PRN Reason: Insomnia Morphine Sulfate (Morphine Sulfate 2 Mg/Ml Cartridge) 2 mg IVPUSH Q4H PRN; Protocol PRN Reason: Pain, Severe (Pain Scale 7-10) Omeprazole (Omeprazole 40 Mg Capsule.Dr) 40 mg PO DAILY@0630 [facility] Last Admin: 03/21/25 06:44 Dose: 40 mg Documented By: SUNNY Sertraline HCl (Sertraline Hcl 25 Mg Tablet) 25 mg PO DAILY [facility] Last Admin: 03/20/25 08:34 Dose: 25 mg Documented By: FRANKLYN Sodium Chloride (0.9 % Sodium Chloride Flush 3 Ml Syringe) 3 ml IVFLUSH QSHIFT [facility] Last Admin: 03/21/25 03:48 Dose: Not Given Documented By: SUNNY Non-Admin Reason: Patient Asleep Labs 03/21/25 09:36 03/21/25 09:36 Labs: Laboratory Results - last 24 hr 03/19/25 03/20/25 03/20/25 20:14 09:14 12:55 MCV 95.8 MCH 34.8 H MCHC 36.3 H RDW 13.9 Plt Count 324 MPV 11.6 Absolute Nucleated RBC 0.000 Nucleated RBC % (auto) 0.0 VBG pH VBG pCO2 VBG pO2 VBG HCO3 VBG O2 Saturation VBG Base Excess Anion Gap 22 H Estim Creat Clear Calc 35.3 Estimated GFR 50 Random Glucose 64 Calcium 8.5 Stl C. cayetanensis PCR Cancelled Not Detected Stool Rotavirus A PCR Cancelled Not Detected Stl Adenov F 40/41 PCR Cancelled Not Detected Stool Astrovirus (PCR) Cancelled Not Detected Stool Campylobacter PCR Cancelled Not Detected Stool Cryptosporidium PCR Cancelled Not Detected Stl Sh Tox Pr E STEC PCR Cancelled Not Detected Stool E coli O157 PCR Cancelled Not applicable Stl Enterotoxigenic E PCR Cancelled Not Detected Stool EPEC (PCR) Cancelled Not Detected Stool EAEC (PCR) Cancelled Not Detected Stl E. histolytica PCR Cancelled Not Detected Stool Giardia Lamblia PCR Cancelled Not Detected Stl P. shigelloides PCR Cancelled Not Detected Stool Salmonella PCR Cancelled Not Detected Stool Sapovirus (PCR) Cancelled Not Detected Stl Shigella/EIEC PCR Cancelled Not Detected St Y.enterocolitica PCR Cancelled Not Detected Stool Vibrio (PCR) Cancelled Not Detected Stl Vibrio cholerae PCR Cancelled Not Detected Stl Norovirus GI/GII PCR Cancelled Not Detected 03/20/25 13:22 MCV MCH MCHC RDW Plt Count MPV Absolute Nucleated RBC Nucleated RBC % (auto) VBG pH 7.36 VBG pCO2 25 VBG pO2 55 VBG HCO3 14 L VBG O2 Saturation 80.0 VBG Base Excess -8.7 Anion Gap Estim Creat Clear Calc Estimated GFR Random Glucose Calcium Stl C. cayetanensis PCR Stool Rotavirus A PCR Stl Adenov F 40/41 PCR Stool Astrovirus (PCR) Stool Campylobacter PCR Stool Cryptosporidium PCR Stl Sh Tox Pr E STEC PCR Stool E coli O157 PCR Stl Enterotoxigenic E PCR Stool EPEC (PCR) Stool EAEC (PCR) Stl E. histolytica PCR Stool Giardia Lamblia PCR Stl P. shigelloides PCR Stool Salmonella PCR Stool Sapovirus (PCR) Stl Shigella/EIEC PCR St Y.enterocolitica PCR Stool Vibrio (PCR) Stl Vibrio cholerae PCR Stl Norovirus GI/GII PCR Assessment and Plan (1) Ileus: Status: Acute Plan 84-year-old male with a history of colon cancer status post right colectomy who presents to the emergency department with abdominal distention found to have LONA, hypokalemia, ileus. Likely in the setting of recent GI issues-chronic constipation versus colitis Ileus 03/21/25: Passing some gas, will cont current regimen, ileus improving Patient reportedly has chronic constipation and continues to be constipated however there is an acute change in his current clinical condition. He also reports multiple falls for which trauma workup thus far has been negative. However, we have hydrated him and repleted electrolytes to goal with some mild improvement. He however continues to have significant abdominal distention, however with the passage of flatus and some 1 time bowel movement soft, we believe that it could be in the setting of ileus and we will challenge him with diet as he is able to tolerate p.o. intake. We tried stool studies however the sample was not enough. Hence we will check the stool studies again. C diff PCR toxin B gene negative Currently no signs of overt sepsis and hence we will limit antibiotics to prevent fulminant C diff Continue IV hydration Continue IV fluids can DC if patient able to tolerate p.o. intake Check electrolytes and replete to goal next item surgery consulted and following Chronic constipation We will be cautious about bowel regimen given concern for rupture DVT Prophylaxis with Lovenox This note is constructed using voice recognition software. While every effort has been made to ensure accuracy, analysis evaluator errors may have been included. Quality Stroke Does the patient have a stroke diagnosis?: No VTE Prior VTE?: No VTE Risk Level:: Medical - moderate - high VTE Device Contraindication: N/A - Device Ordered VTE Drug Contraindication: Treatment Not Indicated
[2025-03-21] MEDS: Lactated Ringers 1,000 ML 100 ML IVCONT (09:38)
[2025-03-21] MEDS: 0.9 % Sodium Chloride Flush 3 ML SYRINGE IVFLUSH ×2 (09:39→21:51)
[2025-03-21 09:59] LABS: Hematocrit 38.8 % (42.0-52.0); Hemoglobin 13.9 g/dl (14.0-18.0); Mean Corpuscular HGB Conc 35.8 g/dl (31.0-36.0); Mean Corpuscular Hemoglobin 34.6 pg (27.0-33.0); Mean Corpuscular Volume 96.5 fL (80.0-98.0); NRBC Abs Auto 0.000 X10*3/uL (0.0-0.012); NRBC Pct Auto 0.0 /100WBC (0.0-0.2); Platelet Count 300 X10*3/uL (160-400); Red Blood Count 4.02 X10*6/uL (4.60-5.80); White Blood Count 7.2 X10*3/uL (4.8-10.8)
[2025-03-21 10:22] LABS: Alanine Aminotransferase < 6 U/L (0-40); Albumin Level 3.3 g/dL (3.5-5.0); Alkaline Phosphatase 62 U/L (39-117); Anion Gap 20 (12-20); Aspartate Amino Transferase 19 U/L (5-37); Blood Urea Nitrogen 39 mg/dL (9-16); Calcium 8.3 mg/dL (8.4-10.2); Carbon Dioxide 14 mmol/L (22-29); Chloride 105 mmol/L (96-108); Creatinine Clr Calc Pharmacy 45.2; Estimated Glomerular Filt Rate > 60; Magnesium 2.0 mg/dL (1.6-2.6); Potassium 3.6 mmol/L (3.3-5.1); Sodium 135 mmol/L (135-145); Total Protein 6.3 g/dL (6.5-8.0)
[2025-03-21 10:36] LABS: Thyroid Stimulating Hormone 2.11 uIU/mL (0.32-4.0)
[2025-03-21 11:13] LABS: Band Neutrophils Percent 25 % (3-5); Lymphocytes Absolute Manual 0.7 X10*3/uL (1.2-4.9); Lymphocytes Percent Manual 10 % (20-40); Metamyelocytes Absolute 0.4 X10*3/uL; Metamyelocytes Percent 5 %; Monocytes Absolute Manual 0.4 X10*3/uL (0.1-1.2); Monocytes Percent Manual 6 % (2-11); Myelocytes Absolute 0.3 X10*/uL; Myelocytes Percent 4 %; Neutrophils Absolute Manual 5.4 X10*3/uL (2.0-8.3); Neutrophils Percent Manual 50 % (45-73)
[2025-03-21 11:15] LABS: RBC Morphology NOTED; Schistocytes 1+ (0-2) /OIF
[2025-03-21 11:18] LABS: Dohle Bodies PRESENT; Toxic Granulation PRESENT
--- NOTE | 2025-03-21 17:33 | PC.NURSE ---
Report called to Shauna in S3. Patient with LR running at 100cc/hour. All questions answered.
[2025-03-21] MEDS: Lidocaine 4 % Patch ADH..PATCH 1 PATCH TRANSDERMA (22:36)
[2025-03-22 04:00] VITALS: BP 138/72; PULSE 92; RESP 17; TEMP 36.2; O2SAT 94
[2025-03-22 06:51] LABS: Hematocrit 35.8 % (42.0-52.0); Hemoglobin 12.9 g/dl (14.0-18.0); Mean Corpuscular HGB Conc 36.0 g/dl (31.0-36.0); Mean Corpuscular Hemoglobin 34.5 pg (27.0-33.0); Mean Corpuscular Volume 95.7 fL (80.0-98.0); NRBC Abs Auto 0.000 X10*3/uL (0.0-0.012); NRBC Pct Auto 0.0 /100WBC (0.0-0.2); Platelet Count 284 X10*3/uL (160-400); Red Blood Count 3.74 X10*6/uL (4.60-5.80)
[2025-03-22 07:07] LABS: WBC ABN SCTR FOR CBC 1
[2025-03-22 07:24] LABS: Band Neutrophils Percent 32 % (3-5); Eosinophils Percent Manual 1 % (0-4); Lymphocytes Percent Manual 12 % (20-40); Metamyelocytes Percent 2 %; Monocytes Percent Manual 10 % (2-11); Myelocytes Percent 2 %; Neutrophils Percent Manual 41 % (45-73)
[2025-03-22 07:28] LABS: Dohle Bodies PRESENT
[2025-03-22 07:29] LABS: Large Platelet PRESENT; Toxic Granulation PRESENT
[2025-03-22 07:30] LABS: RBC Morphology NORMAL
[2025-03-22 07:31] LABS: Eosinophils Absolute Manual 0.1 X10*3/uL (0.0-0.4); Lymphocytes Absolute Manual 0.8 X10*3/uL (1.2-4.9); Metamyelocytes Absolute 0.1 X10*3/uL; Monocytes Absolute Manual 0.6 X10*3/uL (0.1-1.2); Myelocytes Absolute 0.1 X10*/uL; Neutrophils Absolute Manual 4.6 X10*3/uL (2.0-8.3); White Blood Count 6.3 X10*3/uL (4.8-10.8)
[2025-03-22 07:42] LABS: Glucose, Whole Blood 90 mg/dL (60-115)
--- NOTE | 2025-03-22 07:47 | HO.PM.IMPN ---
Subjective Subjective Date of Service: 03/22/25 Interval History: We will attempt bowel meds Patient reports some improvement in attempting to have oral hydration-tolerating liquid diet Review of Systems Review of Systems: Yes all other systems are reviewed and are negative Physical Exam Exam: Exam: General: AOx3, no acute distress, appears frail Resp: CTA bilaterally CVS: S1, S2, RRR GI: +BS, NT, mild distention, benign abdomen, able to pass flatus per patient Extremities: No edema Very frail and deconditioned Vital Signs: Vital Signs: Last Vital Signs Temp 97.1 F 03/22/25 04:00 Pulse 92 03/22/25 04:00 Resp 17 03/22/25 04:00 BP 138/72 03/22/25 04:00 Pulse Ox 94 03/22/25 04:00 O2 Del Method Room Air 03/22/25 04:00 BMI result Body Mass Index 21.4 Objective Data Active Medications Acetaminophen (Acetaminophen 325 Mg Tablet) 650 mg PO Q6H PRN PRN Reason: Pain, Mild 1-3,fever,headache Last Admin: 03/21/25 21:44 Dose: 650 mg Documented By: HEATHER Amlodipine Besylate (Amlodipine Besylate 5 Mg Tablet) 5 mg PO DAILY [facility]; Protocol Last Admin: 03/21/25 09:39 Dose: 5 mg Documented By: MARCI Calcium Carbonate (Calcium Carbonate 750 Mg Tab.Chew) 750 mg PO Q4H PRN PRN Reason: Heartburn Enoxaparin Sodium (Enoxaparin Sodium 40 Mg/0.4 Ml Syringe) 40 mg SUBCUT Q24H [facility] Last Admin: 03/21/25 17:12 Dose: 40 mg Documented By: MARCI Finasteride (Finasteride 5 Mg Tablet) 5 mg PO DAILY [facility] Last Admin: 03/21/25 09:39 Dose: 5 mg Documented By: MARCI Lidocaine (Lidocaine 4 % Patch Adh..Patch) 1 patch TRANSDERMA DAILY [facility]; Protocol Last Admin: 03/21/25 22:36 Dose: 1 patch Documented By: HEATHER Comments: MD aware beginning medication now Lorazepam (Lorazepam 0.5 Mg Tablet) 0.5 mg PO BID PRN PRN Reason: Insomnia Magnesium Hydroxide (Milk Of Magnesia 30 Ml Oral.Susp) 30 ml PO DAILY PRN PRN Reason: Constipation Melatonin (Melatonin 3 Mg Tablet) 6 mg PO BEDTIME PRN PRN Reason: Insomnia Last Admin: 03/21/25 21:44 Dose: 6 mg Documented By: HEATHER Morphine Sulfate (Morphine Sulfate 2 Mg/Ml Cartridge) 2 mg IVPUSH Q4H PRN; Protocol PRN Reason: Pain, Severe (Pain Scale 7-10) Omeprazole (Omeprazole 40 Mg Capsule.Dr) 40 mg PO DAILY@0630 [facility] Last Admin: 03/22/25 06:17 Dose: 40 mg Documented By: HEATHER Sertraline HCl (Sertraline Hcl 25 Mg Tablet) 25 mg PO DAILY [facility] Last Admin: 03/21/25 09:39 Dose: 25 mg Documented By: MARCI Sodium Chloride (0.9 % Sodium Chloride Flush 3 Ml Syringe) 3 ml IVFLUSH QSHIFT [facility] Last Admin: 03/21/25 21:51 Dose: 3 ml Documented By: HEATHER Tramadol HCl (Tramadol Hcl 50 Mg Tablet) 25 mg PO Q6H PRN PRN Reason: Back pain Labs 03/22/25 06:19 03/22/25 06:19 Labs: Laboratory Results - last 24 hr 03/21/25 03/22/25 03/22/25 09:36 06:19 07:34 MCV 96.5 95.7 MCH 34.6 H 34.5 H MCHC 35.8 36.0 RDW 14.0 13.9 Plt Count 300 284 MPV 10.9 11.1 Immature Gran % (Auto) Cancelled Cancelled Neut % (Auto) Cancelled Cancelled Lymph % (Auto) Cancelled Cancelled [place] % (Auto) Cancelled Cancelled Eos % (Auto) Cancelled Cancelled Baso % (Auto) Cancelled Cancelled Lymph # (Auto) Cancelled Cancelled [place] # (Auto) Cancelled Cancelled Eos # (Auto) Cancelled Cancelled Baso # (Auto) Cancelled Cancelled Abs Immat Gran (auto) Cancelled Cancelled Absolute Neuts (auto) Cancelled Cancelled Absolute Nucleated RBC 0.000 0.000 Nucleated RBC % (auto) 0.0 0.0 Neutrophils % (Manual) 50 41 L Band Neutrophils % 25 H 32 H Lymphocytes % (Manual) 10 L 12 L Monocytes % (Manual) 6 10 Eosinophils % (Manual) 1 Metamyelocytes % 5 2 Myelocytes % 4 2 Abs Neuts (Manual) 5.4 4.6 Lymphocytes # (Manual) 0.7 L 0.8 L Monocytes # (Manual) 0.4 0.6 Eosinophils # (Manual) 0.1 Metamyelocytes # 0.4 0.1 Myelocytes # 0.3 0.1 Toxic Granulation PRESENT PRESENT Dohle Bodies PRESENT PRESENT Platelet Estimate NORMAL NORMAL Large Platelets PRESENT Plt Morphology Comment NORMAL NOTED RBC Morphology NOTED NORMAL Schistocytes 1+ (0-2) Anion Gap 20 Estim Creat Clear Calc 45.2 Estimated GFR > 60 POC Glucose 90 Random Glucose 77 Calcium 8.3 L Phosphorus 1.9 L Magnesium 2.0 Total Bilirubin 0.4 AST 19 ALT < 6 Alkaline Phosphatase 62 Total Protein 6.3 L Albumin 3.3 L TSH 2.11 Assessment and Plan (1) Ileus: Status: Acute Plan 84-year-old male with a history of colon cancer status post right colectomy who presents to the emergency department with abdominal distention found to have LONA, hypokalemia, ileus. Likely in the setting of recent GI issues-chronic constipation versus colitis which is currently responding with electrolyte replacement and is tolerating liquid clear diet Ileus -resolving Chronic constipation Patient reportedly has chronic constipation and continues to be constipated however there is an acute change in his current clinical condition. Patient seems to be responding to hydration and appears to be passing gas. Now we will challenge with gentle bowel meds and look for resolution. Infectious workup thus far negative. We will start treating his constipation with bowel meds and enemas given that he is tolerating liquid diet for at least greater than a day and exam continues to be benign. Sepsis workup thus far unremarkable, hence we will limit antibiotics to prevent fulminant C diff Continue IV hydration Continue IV fluids can DC if patient able to tolerate p.o. intake Frail Deconditioned Adult failure to thrive Protein supplements while inpatient He also reports multiple falls for which trauma workup thus far has been negative. He appears well and will likely need PT at the time of discharge. DVT Prophylaxis with Lovenox This note is constructed using voice recognition software. While every effort has been made to ensure accuracy, transportation department supervisor errors may have been included. Quality Stroke Does the patient have a stroke diagnosis?: No VTE Prior VTE?: No VTE Risk Level:: Medical - moderate - high VTE Device Contraindication: N/A - Device Ordered VTE Drug Contraindication: Treatment Not Indicated
[2025-03-22 07:50] LABS: Alanine Aminotransferase < 6 U/L (0-40); Albumin Level 3.0 g/dL (3.5-5.0); Alkaline Phosphatase 56 U/L (39-117); Anion Gap 18 (12-20); Aspartate Amino Transferase 17 U/L (5-37); Blood Urea Nitrogen 25 mg/dL (9-16); Calcium 8.0 mg/dL (8.4-10.2); Carbon Dioxide 16 mmol/L (22-29); Chloride 106 mmol/L (96-108); Creatinine Clr Calc Pharmacy 59.0; Estimated Glomerular Filt Rate > 60; Potassium 2.8 mmol/L (3.3-5.1); Sodium 137 mmol/L (135-145); Total Protein 5.5 g/dL (6.5-8.0)
[2025-03-22 07:52] VITALS: BP 141/78; PULSE 97; RESP 14; TEMP 37.4; O2SAT 95
[2025-03-22] MEDS: Potassium Chloride/H20 10 MEQ/100 ML PIGGYBACK 100 MEQ IV ×4 (08:13→11:45)
[2025-03-22] MEDS: Sodium,Potassium Phosphates POWD.PACK 2 PACKET PO (08:14)
[2025-03-22] MEDS: 0.9 % Sodium Chloride Flush 3 ML SYRINGE IVFLUSH ×3 (08:14→19:58)
--- NOTE | 2025-03-22 08:43 | P.PNGS_ITS ---
Subjective Subjective Date of Service: 03/22/25 Interval history: Patient continues to report abdominal distention with some discomfort but continues to pass stool. C diff negative Physical Exam 2 Vital Signs: Vital Signs: Last Vital Signs Temp 99.3 F 03/22/25 07:52 Pulse 97 03/22/25 07:52 Resp 14 03/22/25 07:52 BP 141/78 H 03/22/25 07:52 Pulse Ox 95 03/22/25 07:52 O2 Del Method Room Air 03/22/25 07:52 BMI result Body Mass Index 21.4 Const: General: comfortable, no acute distress and alert Resp: Effort & Inspection: normal respiratory effort GI: Other: abd remains distended and tympanitic but soft, nontender Skin: General skin exam: no rashes or lesions noted Neuro: General: moves all extremities Objective Data Active Medications Acetaminophen (Acetaminophen 325 Mg Tablet) 650 mg PO Q6H PRN PRN Reason: Pain, Mild 1-3,fever,headache Last Admin: 03/21/25 21:44 Dose: 650 mg Documented By: HEATHER Amlodipine Besylate (Amlodipine Besylate 5 Mg Tablet) 5 mg PO DAILY [facility]; Protocol Last Admin: 03/22/25 08:14 Dose: 5 mg Documented By: KELLY Calcium Carbonate (Calcium Carbonate 750 Mg Tab.Chew) 750 mg PO Q4H PRN PRN Reason: Heartburn Enoxaparin Sodium (Enoxaparin Sodium 40 Mg/0.4 Ml Syringe) 40 mg SUBCUT Q24H [facility] Last Admin: 03/21/25 17:12 Dose: 40 mg Documented By: MARCI Finasteride (Finasteride 5 Mg Tablet) 5 mg PO DAILY [facility] Last Admin: 03/22/25 08:14 Dose: 5 mg Documented By: KELLY Potassium Chloride (Potassium Chloride/H20) 10 meq in 100 mls @ 100 mls/hr IV Q1H JUAN Stop: 03/22/25 11:59 Last Admin: 03/22/25 08:13 Dose: 100 mls/hr Documented By: KELLY Lidocaine (Lidocaine 4 % Patch Adh..Patch) 1 patch TRANSDERMA DAILY [facility]; Protocol Last Admin: 03/21/25 22:36 Dose: 1 patch Documented By: HEATHER Comments: MD aware beginning medication now Lorazepam (Lorazepam 0.5 Mg Tablet) 0.5 mg PO BID PRN PRN Reason: Insomnia Magnesium Hydroxide (Milk Of Magnesia 30 Ml Oral.Susp) 30 ml PO DAILY PRN PRN Reason: Constipation Melatonin (Melatonin 3 Mg Tablet) 6 mg PO BEDTIME PRN PRN Reason: Insomnia Last Admin: 03/21/25 21:44 Dose: 6 mg Documented By: HEATHER Morphine Sulfate (Morphine Sulfate 2 Mg/Ml Cartridge) 2 mg IVPUSH Q4H PRN; Protocol PRN Reason: Pain, Severe (Pain Scale 7-10) Omeprazole (Omeprazole 40 Mg Capsule.Dr) 40 mg PO DAILY@0630 [facility] Last Admin: 03/22/25 06:17 Dose: 40 mg Documented By: HEATHER Polyethylene Glycol (Polyethylene Glycol 3350 17 Gm Powd.Pack) 17 gm PO DAILY [facility] Last Admin: 03/22/25 08:23 Dose: Not Given Documented By: KELLY Non-Admin Reason: loos stool Sertraline HCl (Sertraline Hcl 25 Mg Tablet) 25 mg PO DAILY [facility] Last Admin: 03/22/25 08:14 Dose: 25 mg Documented By: KELLY Sodium Chloride (0.9 % Sodium Chloride Flush 3 Ml Syringe) 3 ml IVFLUSH QSHIFT [facility] Last Admin: 03/22/25 08:14 Dose: 3 ml Documented By: KELLY Tramadol HCl (Tramadol Hcl 50 Mg Tablet) 25 mg PO Q6H PRN PRN Reason: Back pain Labs 03/22/25 06:19 03/22/25 06:19 Labs: Laboratory Results - last 24 hr 03/21/25 03/22/25 03/22/25 09:36 06:19 07:34 MCV 96.5 95.7 MCH 34.6 H 34.5 H MCHC 35.8 36.0 RDW 14.0 13.9 Plt Count 300 284 MPV 10.9 11.1 Immature Gran % (Auto) Cancelled Cancelled Neut % (Auto) Cancelled Cancelled Lymph % (Auto) Cancelled Cancelled [place] % (Auto) Cancelled Cancelled Eos % (Auto) Cancelled Cancelled Baso % (Auto) Cancelled Cancelled Lymph # (Auto) Cancelled Cancelled [place] # (Auto) Cancelled Cancelled Eos # (Auto) Cancelled Cancelled Baso # (Auto) Cancelled Cancelled Abs Immat Gran (auto) Cancelled Cancelled Absolute Neuts (auto) Cancelled Cancelled Absolute Nucleated RBC 0.000 0.000 Nucleated RBC % (auto) 0.0 0.0 Neutrophils % (Manual) 50 41 L Band Neutrophils % 25 H 32 H Lymphocytes % (Manual) 10 L 12 L Monocytes % (Manual) 6 10 Eosinophils % (Manual) 1 Metamyelocytes % 5 2 Myelocytes % 4 2 Abs Neuts (Manual) 5.4 4.6 Lymphocytes # (Manual) 0.7 L 0.8 L Monocytes # (Manual) 0.4 0.6 Eosinophils # (Manual) 0.1 Metamyelocytes # 0.4 0.1 Myelocytes # 0.3 0.1 Toxic Granulation PRESENT PRESENT Dohle Bodies PRESENT PRESENT Platelet Estimate NORMAL NORMAL Large Platelets PRESENT Plt Morphology Comment NORMAL NOTED RBC Morphology NOTED NORMAL Schistocytes 1+ (0-2) Anion Gap 20 18 Estim Creat Clear Calc 45.2 59.0 Estimated GFR > 60 > 60 POC Glucose 90 Random Glucose 77 89 Calcium 8.3 L 8.0 L Phosphorus 1.9 L Magnesium 2.0 Total Bilirubin 0.4 0.4 AST 19 17 ALT < 6 < 6 Alkaline Phosphatase 62 56 Total Protein 6.3 L 5.5 L Albumin 3.3 L 3.0 L TSH 2.11 Procedures Date of Service Date of Service: 03/22/25 Progress Note: A&P Assessment and plan (1) Ileus: Status: Acute Plan Patient continues to pass stool and abdomen is softer. Continues to have some distention but overall he seems more comfortable. No surgical intervention anticipated at this time. Time Spent With Patient Time: Total time managing care of this patient today ____ minutes. Quality Stroke Does the patient have a stroke diagnosis?: No VTE Prior VTE?: No VTE Risk Level:: Medical - moderate - high VTE Device Contraindication: N/A - Device Ordered VTE Drug Contraindication: Treatment Not Indicated
[2025-03-22 15:29] VITALS: BP 129/75; PULSE 95; RESP 16; TEMP 36.4; O2SAT 94
[2025-03-22 20:00] VITALS: BP 128/76; PULSE 98; RESP 18; TEMP 36.5; O2SAT 95
[2025-03-23 04:00] VITALS: BP 131/73; PULSE 91; RESP 18; TEMP 36.3; O2SAT 96
[2025-03-23 06:46] LABS: Hematocrit 36.2 % (42.0-52.0); Hemoglobin 13.0 g/dl (14.0-18.0); Mean Corpuscular HGB Conc 35.9 g/dl (31.0-36.0); Mean Corpuscular Hemoglobin 34.9 pg (27.0-33.0); Mean Corpuscular Volume 97.1 fL (80.0-98.0); NRBC Abs Auto 0.000 X10*3/uL (0.0-0.012); NRBC Pct Auto 0.0 /100WBC (0.0-0.2); Platelet Count 286 X10*3/uL (160-400); Red Blood Count 3.73 X10*6/uL (4.60-5.80)
[2025-03-23 06:47] LABS: WBC ABN SCTR FOR CBC 1; White Blood Count 6.1 X10*3/uL (4.8-10.8)
[2025-03-23 07:07] LABS: Alanine Aminotransferase < 6 U/L (0-40); Albumin Level 3.0 g/dL (3.5-5.0); Alkaline Phosphatase 60 U/L (39-117); Anion Gap 16 (12-20); Aspartate Amino Transferase 25 U/L (5-37); Blood Urea Nitrogen 17 mg/dL (9-16); Calcium 8.0 mg/dL (8.4-10.2); Carbon Dioxide 21 mmol/L (22-29); Chloride 103 mmol/L (96-108); Creatinine Clr Calc Pharmacy 63.7; Estimated Glomerular Filt Rate > 60; Potassium 3.0 mmol/L (3.3-5.1); Sodium 137 mmol/L (135-145); Total Protein 5.6 g/dL (6.5-8.0)
[2025-03-23 07:33] VITALS: BP 140/72; PULSE 92; RESP 16; TEMP 36.4; O2SAT 94
--- NOTE | 2025-03-23 07:53 | PM.PNGS ---
Subjective Subjective Date of Service: 03/23/25 Interval history: Still distended Says he has not passed BMs or flatus today Denies nausea or vomiting Physical Exam Vital Signs: Vital Signs: Last Vital Signs Temp 97.5 F 03/23/25 07:33 Pulse 92 03/23/25 07:33 Resp 16 03/23/25 07:33 BP 140/72 H 03/23/25 07:33 Pulse Ox 94 03/23/25 07:33 O2 Del Method Room Air 03/23/25 07:33 BMI result Body Mass Index 21.4 Const: General: comfortable and no acute distress Resp: Effort & Inspection: normal respiratory effort Cardio: Rate: regular rate GI: Other: Very protuberant Inspection: Yes distended Palpation (GI): Soft to palpation, nontender and no guarding Objective Data Active Medications Acetaminophen (Acetaminophen 325 Mg Tablet) 650 mg PO Q6H PRN PRN Reason: Pain, Mild 1-3,fever,headache Last Admin: 03/22/25 19:29 Dose: 650 mg Documented By: ALEX Amlodipine Besylate (Amlodipine Besylate 5 Mg Tablet) 5 mg PO DAILY [facility]; Protocol Last Admin: 03/22/25 08:14 Dose: 5 mg Documented By: KELLY Calcium Carbonate (Calcium Carbonate 750 Mg Tab.Chew) 750 mg PO Q4H PRN PRN Reason: Heartburn Docusate Sodium (Docusate Sodium 100 Mg Capsule) 100 mg PO BEDTIME [facility] Last Admin: 03/22/25 19:29 Dose: 100 mg Documented By: ALEX Enoxaparin Sodium (Enoxaparin Sodium 40 Mg/0.4 Ml Syringe) 40 mg SUBCUT Q24H [facility] Last Admin: 03/22/25 15:53 Dose: 40 mg Documented By: KELLY Finasteride (Finasteride 5 Mg Tablet) 5 mg PO DAILY [facility] Last Admin: 03/22/25 08:14 Dose: 5 mg Documented By: KELLY Lidocaine (Lidocaine 4 % Patch Adh..Patch) 1 patch TRANSDERMA DAILY [facility]; Protocol Last Admin: 03/21/25 22:36 Dose: 1 patch Documented By: HEATHER Comments: MD aware beginning medication now Lorazepam (Lorazepam 0.5 Mg Tablet) 0.5 mg PO BID PRN PRN Reason: Insomnia Magnesium Hydroxide (Milk Of Magnesia 30 Ml Oral.Susp) 30 ml PO DAILY PRN PRN Reason: Constipation Melatonin (Melatonin 3 Mg Tablet) 6 mg PO BEDTIME PRN PRN Reason: Insomnia Last Admin: 03/22/25 19:50 Dose: 6 mg Documented By: ALEX Morphine Sulfate (Morphine Sulfate 2 Mg/Ml Cartridge) 2 mg IVPUSH Q4H PRN; Protocol PRN Reason: Pain, Severe (Pain Scale 7-10) Omeprazole (Omeprazole 40 Mg Capsule.Dr) 40 mg PO DAILY@0630 [facility] Last Admin: 03/23/25 05:43 Dose: 40 mg Documented By: ALEX Polyethylene Glycol (Polyethylene Glycol 3350 17 Gm Powd.Pack) 17 gm PO DAILY [facility] Last Admin: 03/22/25 10:43 Dose: 17 gm Documented By: KELLY Senna (Sennosides 8.6 Mg Tablet) 17.2 mg PO BEDTIME PRN PRN Reason: Constipation Sertraline HCl (Sertraline Hcl 25 Mg Tablet) 25 mg PO DAILY [facility] Last Admin: 03/22/25 08:14 Dose: 25 mg Documented By: KELLY Sodium Chloride (0.9 % Sodium Chloride Flush 3 Ml Syringe) 3 ml IVFLUSH QSHIFT [facility] Last Admin: 03/22/25 19:58 Dose: 3 ml Documented By: ALEX Tramadol HCl (Tramadol Hcl 50 Mg Tablet) 25 mg PO Q6H PRN PRN Reason: Back pain Labs 03/23/25 05:41 03/23/25 05:41 Labs: Laboratory Results - last 24 hr 03/23/25 05:41 MCV 97.1 MCH 34.9 H MCHC 35.9 RDW 13.7 Plt Count 286 MPV 12.1 Immature Gran % (Auto) Cancelled Neut % (Auto) Cancelled Lymph % (Auto) Cancelled [place] % (Auto) Cancelled Eos % (Auto) Cancelled Baso % (Auto) Cancelled Lymph # (Auto) Cancelled [place] # (Auto) Cancelled Eos # (Auto) Cancelled Baso # (Auto) Cancelled Abs Immat Gran (auto) Cancelled Absolute Neuts (auto) Cancelled Absolute Nucleated RBC 0.000 Nucleated RBC % (auto) 0.0 Anion Gap 16 Estim Creat Clear Calc 63.7 Estimated GFR > 60 Random Glucose 83 Calcium 8.0 L Total Bilirubin 0.6 AST 25 ALT < 6 Alkaline Phosphatase 60 Total Protein 5.6 L Albumin 3.0 L Procedures Date of Service Date of Service: 03/23/25 Progress Note: A&P Assessment and plan (1) Ileus: Status: Acute Assessment and Plan: Still distended Check KUB Correct potassium Encouraged to get out of bed Looks well overall We will follow closely Time Spent With Patient Time: Total time managing care of this patient today ____ minutes. Quality Stroke Does the patient have a stroke diagnosis?: No VTE Prior VTE?: No VTE Risk Level:: Medical - moderate - high VTE Device Contraindication: N/A - Device Ordered VTE Drug Contraindication: Treatment Not Indicated
[2025-03-23] MEDS: Lidocaine 4 % Patch ADH..PATCH 1 PATCH TRANSDERMA (08:10)
[2025-03-23] MEDS: 0.9 % Sodium Chloride Flush 3 ML SYRINGE IVFLUSH ×3 (08:13→20:42)
[2025-03-23 08:38] LABS: Atypical Lymph Absolute Manual 0.1 x10*3/uL; Atypical Lymphs Percent Manual 1 % (0-6); Band Neutrophils Percent 12 % (3-5); Lymphocytes Absolute Manual 1.0 X10*3/uL (1.2-4.9); Lymphocytes Percent Manual 16 % (20-40); Metamyelocytes Absolute 0.1 X10*3/uL; Metamyelocytes Percent 1 %; Monocytes Absolute Manual 0.4 X10*3/uL (0.1-1.2); Monocytes Percent Manual 7 % (2-11); Neutrophils Absolute Manual 4.5 X10*3/uL (2.0-8.3); Neutrophils Percent Manual 62 % (45-73); Promyelocytes Absolute 0.1 X10*3/uL; Promyelocytes Percent 1 %
[2025-03-23 08:39] LABS: RBC Morphology NORMAL
[2025-03-23 08:40] LABS: Dohle Bodies PRESENT; Large Platelet PRESENT; Toxic Granulation PRESENT
[2025-03-23 11:30] VITALS: BP 140/72; PULSE 92; O2SAT 94
--- NOTE | 2025-03-23 11:59 | HO.PM.IMPN ---
Subjective Subjective Date of Service: 03/23/25 Interval History: Follow up abd pain and bloating still with no BM or gas improvement in oral hydration-tolerating liquid diet Review of Systems Review of Systems: Yes all other systems are reviewed and are negative Physical Exam Exam: Exam: Appearing in no acute distress lung sounds are clear to auscultation heart regular rate rhythm, clear S1, S2 positive bowel sounds, abdomen is soft, nontender neuro patient is alert x3, no focal deficits Vital Signs: Vital Signs: Last Vital Signs Temp 97.5 F 03/23/25 07:33 Pulse 92 03/23/25 11:30 Resp 16 03/23/25 07:33 BP 140/72 H 03/23/25 11:30 Pulse Ox 94 03/23/25 11:30 O2 Del Method Room Air 03/23/25 07:33 BMI result Body Mass Index 21.4 Objective Data Active Medications Acetaminophen (Acetaminophen 325 Mg Tablet) 650 mg PO Q6H PRN PRN Reason: Pain, Mild 1-3,fever,headache Last Admin: 03/22/25 19:29 Dose: 650 mg Documented By: ALEX Amlodipine Besylate (Amlodipine Besylate 5 Mg Tablet) 5 mg PO DAILY [facility]; Protocol Last Admin: 03/23/25 08:09 Dose: 5 mg Documented By: RUBI Calcium Carbonate (Calcium Carbonate 750 Mg Tab.Chew) 750 mg PO Q4H PRN PRN Reason: Heartburn Docusate Sodium (Docusate Sodium 100 Mg Capsule) 100 mg PO BEDTIME [facility] Last Admin: 03/22/25 19:29 Dose: 100 mg Documented By: ALEX Enoxaparin Sodium (Enoxaparin Sodium 40 Mg/0.4 Ml Syringe) 40 mg SUBCUT Q24H [facility] Last Admin: 03/22/25 15:53 Dose: 40 mg Documented By: KELLY Finasteride (Finasteride 5 Mg Tablet) 5 mg PO DAILY [facility] Last Admin: 03/23/25 08:10 Dose: 5 mg Documented By: RUBI Lidocaine (Lidocaine 4 % Patch Adh..Patch) 1 patch TRANSDERMA DAILY [facility]; Protocol Last Admin: 03/23/25 08:10 Dose: 1 patch Documented By: RUBI Lorazepam (Lorazepam 0.5 Mg Tablet) 0.5 mg PO BID PRN PRN Reason: Insomnia Magnesium Hydroxide (Milk Of Magnesia 30 Ml Oral.Susp) 30 ml PO DAILY PRN PRN Reason: Constipation Melatonin (Melatonin 3 Mg Tablet) 6 mg PO BEDTIME PRN PRN Reason: Insomnia Last Admin: 03/22/25 19:50 Dose: 6 mg Documented By: ALEX Morphine Sulfate (Morphine Sulfate 2 Mg/Ml Cartridge) 2 mg IVPUSH Q4H PRN; Protocol PRN Reason: Pain, Severe (Pain Scale 7-10) Omeprazole (Omeprazole 40 Mg Capsule.Dr) 40 mg PO DAILY@0630 [facility] Last Admin: 03/23/25 05:43 Dose: 40 mg Documented By: ALEX Polyethylene Glycol (Polyethylene Glycol 3350 17 Gm Powd.Pack) 17 gm PO DAILY [facility] Last Admin: 03/23/25 08:10 Dose: 17 gm Documented By: RUBI Potassium Chloride (Potassium Chloride Er 20 Meq Tab.Er.Prt) 40 meq PO BID [facility] Senna (Sennosides 8.6 Mg Tablet) 17.2 mg PO BEDTIME PRN PRN Reason: Constipation Sertraline HCl (Sertraline Hcl 25 Mg Tablet) 25 mg PO DAILY [facility] Last Admin: 03/23/25 08:10 Dose: 25 mg Documented By: RUBI Sodium Chloride (0.9 % Sodium Chloride Flush 3 Ml Syringe) 3 ml IVFLUSH QSHIFT [facility] Last Admin: 03/23/25 08:13 Dose: 3 ml Documented By: RUBI Tramadol HCl (Tramadol Hcl 50 Mg Tablet) 25 mg PO Q6H PRN PRN Reason: Back pain Labs 03/23/25 05:41 03/23/25 05:41 Labs: Laboratory Results - last 24 hr 03/23/25 05:41 MCV 97.1 MCH 34.9 H MCHC 35.9 RDW 13.7 Plt Count 286 MPV 12.1 Immature Gran % (Auto) Cancelled Neut % (Auto) Cancelled Lymph % (Auto) Cancelled [place] % (Auto) Cancelled Eos % (Auto) Cancelled Baso % (Auto) Cancelled Lymph # (Auto) Cancelled [place] # (Auto) Cancelled Eos # (Auto) Cancelled Baso # (Auto) Cancelled Abs Immat Gran (auto) Cancelled Absolute Neuts (auto) Cancelled Absolute Nucleated RBC 0.000 Nucleated RBC % (auto) 0.0 Neutrophils % (Manual) 62 Band Neutrophils % 12 H Lymphocytes % (Manual) 16 L Atypical Lymphs % (Man) 1 Monocytes % (Manual) 7 Metamyelocytes % 1 Promyelocytes % 1 Abs Neuts (Manual) 4.5 Lymphocytes # (Manual) 1.0 L Atyp Lymphs # (Manual) 0.1 Monocytes # (Manual) 0.4 Metamyelocytes # 0.1 Promyelocytes # 0.1 Toxic Granulation PRESENT Dohle Bodies PRESENT Platelet Estimate NORMAL Large Platelets PRESENT Plt Morphology Comment NOTED RBC Morphology NORMAL Anion Gap 16 Estim Creat Clear Calc 63.7 Estimated GFR > 60 Random Glucose 83 Calcium 8.0 L Total Bilirubin 0.6 AST 25 ALT < 6 Alkaline Phosphatase 60 Total Protein 5.6 L Albumin 3.0 L Assessment and Plan (1) Ileus: Status: Acute Plan 84-year-old male with a history of colon cancer status post right colectomy who presents to the emergency department with abdominal distention found to have LONA, hypokalemia, ileus. Likely in the setting of recent GI issues-chronic constipation versus colitis which is currently responding with electrolyte replacement and is tolerating liquid clear diet Ileus HX of Chronic constipation No BM or gas treated with bowel reg repeat KUB today with ileus, discussed with gen surg continue clears Hyopokalemia poor nutrition replete Hypertension Stable blood pressure Continue amlodipine GERD Continue PPI BPH Continue finasteride Frail Deconditioned Adult failure to thrive Protein supplements while inpatient He also reports multiple falls for which trauma workup thus far has been negative. PT home PT Mental health Continue home medications DVT Prophylaxis with Lovenox DNR Quality Stroke Does the patient have a stroke diagnosis?: No VTE Prior VTE?: No VTE Risk Level:: Medical - moderate - high VTE Device Contraindication: N/A - Device Ordered VTE Drug Contraindication: Treatment Not Indicated
[2025-03-23] MEDS: Potassium Chloride ER 20 MEQ TAB.ER.PRT 40 MEQ PO ×2 (13:54→20:25)
--- NOTE | 2025-03-23 14:20 | PM.EVENT ---
Event Note Date of Service: 03/23/25 Event Note: Seen on afternoon rounds KUB done earlier shows gaseous distention of the small bowel and the colon I have reviewed this and this appears to me more consistent with ileus Abdomen remained soft and protuberant He has not nauseous Would keep on clear liquids for now Encouraged out of bed, ambulate Correct electrolyte derangements We will continue to follow at bedside Time Spent With Patient Time: Total time managing care of this patient today ____ minutes.
[2025-03-23 15:53] VITALS: BP 119/70; PULSE 96; RESP 16; TEMP 36.5; O2SAT 95
[2025-03-23 19:36] VITALS: BP 130/70; PULSE 97; RESP 19; TEMP 36.6; O2SAT 96
[2025-03-24 03:05] VITALS: BP 139/72; PULSE 90; RESP 18; TEMP 36.2; O2SAT 95
[2025-03-24 06:05] LABS: Hematocrit 34.5 % (42.0-52.0); Hemoglobin 12.2 g/dl (14.0-18.0); Mean Corpuscular HGB Conc 35.4 g/dl (31.0-36.0); Mean Corpuscular Hemoglobin 34.2 pg (27.0-33.0); Mean Corpuscular Volume 96.6 fL (80.0-98.0); NRBC Abs Auto 0.000 X10*3/uL (0.0-0.012); NRBC Pct Auto 0.0 /100WBC (0.0-0.2); Platelet Count 339 X10*3/uL (160-400); Red Blood Count 3.57 X10*6/uL (4.60-5.80); WBC ABN SCTR FOR CBC 1
[2025-03-24 06:22] LABS: Alanine Aminotransferase < 6 U/L (0-40); Albumin Level 2.8 g/dL (3.5-5.0); Alkaline Phosphatase 63 U/L (39-117); Anion Gap 10 (12-20); Aspartate Amino Transferase 18 U/L (5-37); Blood Urea Nitrogen 13 mg/dL (9-16); Calcium 7.7 mg/dL (8.4-10.2); Carbon Dioxide 22 mmol/L (22-29); Chloride 107 mmol/L (96-108); Creatinine Clr Calc Pharmacy 56.9; Estimated Glomerular Filt Rate > 60; Potassium 3.4 mmol/L (3.3-5.1); Sodium 136 mmol/L (135-145); Total Protein 5.1 g/dL (6.5-8.0)
[2025-03-24 06:25] LABS: Band Neutrophils Percent 9 % (3-5); Lymphocytes Percent Manual 10 % (20-40); Metamyelocytes Percent 2 %; Monocytes Percent Manual 8 % (2-11); Neutrophils Percent Manual 71 % (45-73); RBC Morphology NORMAL
[2025-03-24 06:26] LABS: Dohle Bodies PRESENT; Large Platelet PRESENT; Lymphocytes Absolute Manual 0.7 X10*3/uL (1.2-4.9); Metamyelocytes Absolute 0.1 X10*3/uL; Monocytes Absolute Manual 0.6 X10*3/uL (0.1-1.2); Neutrophils Absolute Manual 5.8 X10*3/uL (2.0-8.3); Toxic Vacuolation PRESENT; White Blood Count 7.2 X10*3/uL (4.8-10.8)
[2025-03-24 07:48] VITALS: BP 136/70; PULSE 86; RESP 16; TEMP 36.1; O2SAT 94
[2025-03-24] MEDS: Potassium Chloride ER 20 MEQ TAB.ER.PRT 40 MEQ PO ×2 (08:24→20:50)
[2025-03-24] MEDS: Lidocaine 4 % Patch ADH..PATCH 1 PATCH TRANSDERMA (08:24)
[2025-03-24] MEDS: 0.9 % Sodium Chloride Flush 3 ML SYRINGE IVFLUSH ×3 (08:25→20:56)
--- NOTE | 2025-03-24 09:12 | P.PNGS_ITS ---
Subjective Subjective Date of Service: 03/24/25 Interval history: Says he feels okay this morning Denies abdominal pain or vomiting Passing flatus Tolerating liquids Physical Exam 2 Vital Signs: Vital Signs: Last Vital Signs Temp 96.9 F 03/24/25 07:48 Pulse 86 03/24/25 07:48 Resp 16 03/24/25 07:48 BP 136/70 03/24/25 07:48 Pulse Ox 94 03/24/25 07:48 O2 Del Method Room Air 03/24/25 07:48 BMI result Body Mass Index 21.4 Const: General: comfortable and no acute distress Resp: Effort & Inspection: normal respiratory effort Cardio: Rate: regular rate GI: Other: Distended and protuberant but soft with no guarding, no tenderness Objective Data Active Medications Acetaminophen (Acetaminophen 325 Mg Tablet) 650 mg PO Q6H PRN PRN Reason: Pain, Mild 1-3,fever,headache Last Admin: 03/23/25 20:45 Dose: 650 mg Documented By: ALEX Amlodipine Besylate (Amlodipine Besylate 5 Mg Tablet) 5 mg PO DAILY [facility]; Protocol Last Admin: 03/24/25 08:24 Dose: 5 mg Documented By: CALISTA Calcium Carbonate (Calcium Carbonate 750 Mg Tab.Chew) 750 mg PO Q4H PRN PRN Reason: Heartburn Docusate Sodium (Docusate Sodium 100 Mg Capsule) 100 mg PO BEDTIME [facility] Last Admin: 03/23/25 20:25 Dose: 100 mg Documented By: ALEX Enoxaparin Sodium (Enoxaparin Sodium 40 Mg/0.4 Ml Syringe) 40 mg SUBCUT Q24H [facility] Last Admin: 03/23/25 17:04 Dose: 40 mg Documented By: EMERY Finasteride (Finasteride 5 Mg Tablet) 5 mg PO DAILY [facility] Last Admin: 03/24/25 08:24 Dose: 5 mg Documented By: CALISTA Lidocaine (Lidocaine 4 % Patch Adh..Patch) 1 patch TRANSDERMA DAILY [facility]; Protocol Last Admin: 03/24/25 08:24 Dose: 1 patch Documented By: CALISTA Lorazepam (Lorazepam 0.5 Mg Tablet) 0.5 mg PO BID PRN PRN Reason: Insomnia Magnesium Hydroxide (Milk Of Magnesia 30 Ml Oral.Susp) 30 ml PO DAILY PRN PRN Reason: Constipation Melatonin (Melatonin 3 Mg Tablet) 6 mg PO BEDTIME PRN PRN Reason: Insomnia Last Admin: 03/23/25 23:04 Dose: 6 mg Documented By: ALEX Morphine Sulfate (Morphine Sulfate 2 Mg/Ml Cartridge) 2 mg IVPUSH Q4H PRN; Protocol PRN Reason: Pain, Severe (Pain Scale 7-10) Omeprazole (Omeprazole 40 Mg Capsule.Dr) 40 mg PO DAILY@0630 [facility] Last Admin: 03/24/25 05:23 Dose: 40 mg Documented By: ALEX Polyethylene Glycol (Polyethylene Glycol 3350 17 Gm Powd.Pack) 17 gm PO DAILY [facility] Last Admin: 03/24/25 08:24 Dose: 17 gm Documented By: CALISTA Potassium Chloride (Potassium Chloride Er 20 Meq Tab.Er.Prt) 40 meq PO BID [facility] Last Admin: 03/24/25 08:24 Dose: 40 meq Documented By: CALISTA Senna (Sennosides 8.6 Mg Tablet) 17.2 mg PO BEDTIME PRN PRN Reason: Constipation Sertraline HCl (Sertraline Hcl 25 Mg Tablet) 25 mg PO DAILY [facility] Last Admin: 03/24/25 08:24 Dose: 25 mg Documented By: CALISTA Sodium Chloride (0.9 % Sodium Chloride Flush 3 Ml Syringe) 3 ml IVFLUSH QSHIFT [facility] Last Admin: 03/24/25 08:25 Dose: 3 ml Documented By: CALISTA Tramadol HCl (Tramadol Hcl 50 Mg Tablet) 25 mg PO Q6H PRN PRN Reason: Back pain Labs 03/24/25 05:08 03/24/25 05:08 Labs: Laboratory Results - last 24 hr 03/24/25 05:08 MCV 96.6 MCH 34.2 H MCHC 35.4 RDW 13.9 Plt Count 339 MPV 11.6 Immature Gran % (Auto) Cancelled Neut % (Auto) Cancelled Lymph % (Auto) Cancelled [place] % (Auto) Cancelled Eos % (Auto) Cancelled Baso % (Auto) Cancelled Lymph # (Auto) Cancelled [place] # (Auto) Cancelled Eos # (Auto) Cancelled Baso # (Auto) Cancelled Abs Immat Gran (auto) Cancelled Absolute Neuts (auto) Cancelled Absolute Nucleated RBC 0.000 Nucleated RBC % (auto) 0.0 Neutrophils % (Manual) 71 Band Neutrophils % 9 H Lymphocytes % (Manual) 10 L Monocytes % (Manual) 8 Metamyelocytes % 2 Abs Neuts (Manual) 5.8 Lymphocytes # (Manual) 0.7 L Monocytes # (Manual) 0.6 Metamyelocytes # 0.1 Toxic Vacuolation PRESENT Dohle Bodies PRESENT Platelet Estimate NORMAL Large Platelets PRESENT Plt Morphology Comment NOTED RBC Morphology NORMAL Anion Gap 10 L Estim Creat Clear Calc 56.9 Estimated GFR > 60 Random Glucose 90 Calcium 7.7 L Total Bilirubin 0.5 AST 18 ALT < 6 Alkaline Phosphatase 63 Total Protein 5.1 L Albumin 2.8 L Procedures Date of Service Date of Service: 03/24/25 Progress Note: A&P Assessment and plan (1) Ileus: Status: Acute Assessment and Plan: Abdomen is soft and very benign no tenderness No vomiting Passing flatus Encouraged ambulation Diet as tolerated Discussed with the hospitalist service Time Spent With Patient Time: Total time managing care of this patient today ____ minutes. Quality Stroke Does the patient have a stroke diagnosis?: No VTE Prior VTE?: No VTE Risk Level:: Medical - moderate - high VTE Device Contraindication: N/A - Device Ordered VTE Drug Contraindication: Treatment Not Indicated
--- NOTE | 2025-03-24 11:16 | HO.PM.IMPN ---
Subjective Subjective Date of Service: 03/24/25 Interval History: Follow up abd pain and bloating still with no BM or gas improvement in oral hydration-tolerating liquid diet Review of Systems Review of Systems: Yes all other systems are reviewed and are negative Physical Exam Vital Signs: Vital Signs: Last Vital Signs Temp 96.9 F 03/24/25 07:48 Pulse 86 03/24/25 07:48 Resp 16 03/24/25 07:48 BP 136/70 03/24/25 07:48 Pulse Ox 94 03/24/25 07:48 O2 Del Method Room Air 03/24/25 07:48 BMI result Body Mass Index 21.4 Objective Data Active Medications Acetaminophen (Acetaminophen 325 Mg Tablet) 650 mg PO Q6H PRN PRN Reason: Pain, Mild 1-3,fever,headache Last Admin: 03/23/25 20:45 Dose: 650 mg Documented By: ALEX Amlodipine Besylate (Amlodipine Besylate 5 Mg Tablet) 5 mg PO DAILY [facility]; Protocol Last Admin: 03/24/25 08:24 Dose: 5 mg Documented By: CALISTA Calcium Carbonate (Calcium Carbonate 750 Mg Tab.Chew) 750 mg PO Q4H PRN PRN Reason: Heartburn Docusate Sodium (Docusate Sodium 100 Mg Capsule) 100 mg PO BEDTIME [facility] Last Admin: 03/23/25 20:25 Dose: 100 mg Documented By: ALEX Enoxaparin Sodium (Enoxaparin Sodium 40 Mg/0.4 Ml Syringe) 40 mg SUBCUT Q24H [facility] Last Admin: 03/23/25 17:04 Dose: 40 mg Documented By: EMERY Finasteride (Finasteride 5 Mg Tablet) 5 mg PO DAILY [facility] Last Admin: 03/24/25 08:24 Dose: 5 mg Documented By: CALISTA Lidocaine (Lidocaine 4 % Patch Adh..Patch) 1 patch TRANSDERMA DAILY [facility]; Protocol Last Admin: 03/24/25 08:24 Dose: 1 patch Documented By: CALISTA Lorazepam (Lorazepam 0.5 Mg Tablet) 0.5 mg PO BID PRN PRN Reason: Insomnia Magnesium Hydroxide (Milk Of Magnesia 30 Ml Oral.Susp) 30 ml PO DAILY PRN PRN Reason: Constipation Melatonin (Melatonin 3 Mg Tablet) 6 mg PO BEDTIME PRN PRN Reason: Insomnia Last Admin: 03/23/25 23:04 Dose: 6 mg Documented By: ALEX Morphine Sulfate (Morphine Sulfate 2 Mg/Ml Cartridge) 2 mg IVPUSH Q4H PRN; Protocol PRN Reason: Pain, Severe (Pain Scale 7-10) Omeprazole (Omeprazole 40 Mg Capsule.Dr) 40 mg PO DAILY@0630 [facility] Last Admin: 03/24/25 05:23 Dose: 40 mg Documented By: ALEX Polyethylene Glycol (Polyethylene Glycol 3350 17 Gm Powd.Pack) 17 gm PO DAILY [facility] Last Admin: 03/24/25 08:24 Dose: 17 gm Documented By: CALISTA Potassium Chloride (Potassium Chloride Er 20 Meq Tab.Er.Prt) 40 meq PO BID [facility] Last Admin: 03/24/25 08:24 Dose: 40 meq Documented By: CALISTA Senna (Sennosides 8.6 Mg Tablet) 17.2 mg PO BEDTIME PRN PRN Reason: Constipation Sertraline HCl (Sertraline Hcl 25 Mg Tablet) 25 mg PO DAILY [facility] Last Admin: 03/24/25 08:24 Dose: 25 mg Documented By: CALISTA Sodium Chloride (0.9 % Sodium Chloride Flush 3 Ml Syringe) 3 ml IVFLUSH QSHIFT [facility] Last Admin: 03/24/25 08:25 Dose: 3 ml Documented By: CALISTA Tramadol HCl (Tramadol Hcl 50 Mg Tablet) 25 mg PO Q6H PRN PRN Reason: Back pain Labs 03/24/25 05:08 03/24/25 05:08 Labs: Laboratory Results - last 24 hr 03/24/25 05:08 MCV 96.6 MCH 34.2 H MCHC 35.4 RDW 13.9 Plt Count 339 MPV 11.6 Immature Gran % (Auto) Cancelled Neut % (Auto) Cancelled Lymph % (Auto) Cancelled [place] % (Auto) Cancelled Eos % (Auto) Cancelled Baso % (Auto) Cancelled Lymph # (Auto) Cancelled [place] # (Auto) Cancelled Eos # (Auto) Cancelled Baso # (Auto) Cancelled Abs Immat Gran (auto) Cancelled Absolute Neuts (auto) Cancelled Absolute Nucleated RBC 0.000 Nucleated RBC % (auto) 0.0 Neutrophils % (Manual) 71 Band Neutrophils % 9 H Lymphocytes % (Manual) 10 L Monocytes % (Manual) 8 Metamyelocytes % 2 Abs Neuts (Manual) 5.8 Lymphocytes # (Manual) 0.7 L Monocytes # (Manual) 0.6 Metamyelocytes # 0.1 Toxic Vacuolation PRESENT Dohle Bodies PRESENT Platelet Estimate NORMAL Large Platelets PRESENT Plt Morphology Comment NOTED RBC Morphology NORMAL Anion Gap 10 L Estim Creat Clear Calc 56.9 Estimated GFR > 60 Random Glucose 90 Calcium 7.7 L Total Bilirubin 0.5 AST 18 ALT < 6 Alkaline Phosphatase 63 Total Protein 5.1 L Albumin 2.8 L Assessment and Plan (1) Ileus: Status: Acute Plan 84-year-old male with a history of colon cancer status post right colectomy who presents to the emergency department with abdominal distention found to have LONA, hypokalemia, ileus. Likely in the setting of recent GI issues-chronic constipation versus colitis which is currently responding with electrolyte replacement and is tolerating liquid clear diet Ileus HX of Chronic constipation No BM or gas treated with bowel reg repeat KUB today with ileus, discussed with gen surg continue clears Hyopokalemia. Resolved poor nutrition replete Hypertension Stable blood pressure Continue amlodipine GERD Continue PPI BPH Continue finasteride Frail Deconditioned Adult failure to thrive Protein supplements while inpatient He also reports multiple falls for which trauma workup thus far has been negative. PT home PT Mental health Continue home medications DVT Prophylaxis with Lovenox DNR Quality Stroke Does the patient have a stroke diagnosis?: No VTE Prior VTE?: No VTE Risk Level:: Medical - moderate - high VTE Device Contraindication: N/A - Device Ordered VTE Drug Contraindication: Treatment Not Indicated
[2025-03-24 15:28] VITALS: BP 135/74; PULSE 94; RESP 16; TEMP 36.1; O2SAT 97
[2025-03-24 19:18] VITALS: BP 119/65; PULSE 91; RESP 15; TEMP 36.6; O2SAT 94
[2025-03-25 03:13] VITALS: BP 130/74; PULSE 87; RESP 16; TEMP 36; O2SAT 96
[2025-03-25 06:49] LABS: Hematocrit 36.2 % (42.0-52.0); Hemoglobin 12.8 g/dl (14.0-18.0); Mean Corpuscular HGB Conc 35.4 g/dl (31.0-36.0); Mean Corpuscular Hemoglobin 34.1 pg (27.0-33.0); Mean Corpuscular Volume 96.5 fL (80.0-98.0); NRBC Abs Auto 0.000 X10*3/uL (0.0-0.012); NRBC Pct Auto 0.0 /100WBC (0.0-0.2); Platelet Count 334 X10*3/uL (160-400); Red Blood Count 3.75 X10*6/uL (4.60-5.80); WBC ABN SCTR FOR CBC 1
[2025-03-25 06:50] LABS: White Blood Count 8.6 X10*3/uL (4.8-10.8)
[2025-03-25 07:08] LABS: Alanine Aminotransferase < 6 U/L (0-40); Albumin Level 2.7 g/dL (3.5-5.0); Alkaline Phosphatase 68 U/L (39-117); Anion Gap 14 (12-20); Aspartate Amino Transferase 16 U/L (5-37); Blood Urea Nitrogen 8 mg/dL (9-16); Calcium 7.5 mg/dL (8.4-10.2); Carbon Dioxide 21 mmol/L (22-29); Chloride 107 mmol/L (96-108); Creatinine Clr Calc Pharmacy 58.3; Estimated Glomerular Filt Rate > 60; Potassium 3.5 mmol/L (3.3-5.1); Sodium 138 mmol/L (135-145); Total Protein 5.0 g/dL (6.5-8.0)
[2025-03-25 07:32] VITALS: BP 133/75; PULSE 89; RESP 16; TEMP 36.5; O2SAT 95
[2025-03-25] MEDS: Potassium Chloride ER 20 MEQ TAB.ER.PRT 40 MEQ PO (07:45)
[2025-03-25] MEDS: Lidocaine 4 % Patch ADH..PATCH 1 PATCH TRANSDERMA (07:46)
[2025-03-25] MEDS: 0.9 % Sodium Chloride Flush 3 ML SYRINGE IVFLUSH (07:46)
--- NOTE | 2025-03-25 08:10 | P.PNGS_ITS ---
Subjective Subjective Date of Service: 03/25/25 Interval history: Tolerating full liquids Has flatus and BMs Denies pain Denies nausea or vomiting Physical Exam 2 Vital Signs: Vital Signs: Last Vital Signs Temp 97.7 F 03/25/25 07:32 Pulse 89 03/25/25 07:32 Resp 16 03/25/25 07:32 BP 133/75 03/25/25 07:32 Pulse Ox 95 03/25/25 07:32 O2 Del Method Room Air 03/25/25 07:32 O2 Flow Rate 97 03/24/25 15:28 BMI result Body Mass Index 21.4 Const: General: comfortable and no acute distress Resp: Effort & Inspection: normal respiratory effort Cardio: Rate: regular rate GI: Other: Abdomen very protuberant but soft Palpation (GI): Soft to palpation, not firm, nontender and no guarding Objective Data Active Medications Acetaminophen (Acetaminophen 325 Mg Tablet) 650 mg PO Q6H PRN PRN Reason: Pain, Mild 1-3,fever,headache Last Admin: 03/24/25 20:55 Dose: 650 mg Documented By: HILTON Amlodipine Besylate (Amlodipine Besylate 5 Mg Tablet) 5 mg PO DAILY [facility]; Protocol Last Admin: 03/25/25 07:45 Dose: 5 mg Documented By: NEERU Calcium Carbonate (Calcium Carbonate 750 Mg Tab.Chew) 750 mg PO Q4H PRN PRN Reason: Heartburn Docusate Sodium (Docusate Sodium 100 Mg Capsule) 100 mg PO BEDTIME [facility] Last Admin: 03/24/25 20:50 Dose: 100 mg Documented By: HILTON Enoxaparin Sodium (Enoxaparin Sodium 40 Mg/0.4 Ml Syringe) 40 mg SUBCUT Q24H [facility] Last Admin: 03/24/25 15:37 Dose: 40 mg Documented By: JOSS Finasteride (Finasteride 5 Mg Tablet) 5 mg PO DAILY [facility] Last Admin: 03/25/25 07:46 Dose: 5 mg Documented By: NEERU Lidocaine (Lidocaine 4 % Patch Adh..Patch) 1 patch TRANSDERMA DAILY [facility]; Protocol Last Admin: 03/25/25 07:46 Dose: 1 patch Documented By: NEERU Magnesium Hydroxide (Milk Of Magnesia 30 Ml Oral.Susp) 30 ml PO DAILY PRN PRN Reason: Constipation Melatonin (Melatonin 3 Mg Tablet) 6 mg PO BEDTIME PRN PRN Reason: Insomnia Last Admin: 03/24/25 23:55 Dose: 6 mg Documented By: HILTON Omeprazole (Omeprazole 40 Mg Capsule.Dr) 40 mg PO DAILY@0630 [facility] Last Admin: 03/25/25 07:45 Dose: 40 mg Documented By: NEERU Polyethylene Glycol (Polyethylene Glycol 3350 17 Gm Powd.Pack) 17 gm PO DAILY [facility] Last Admin: 03/25/25 07:46 Dose: 17 gm Documented By: NEERU Potassium Chloride (Potassium Chloride Er 20 Meq Tab.Er.Prt) 40 meq PO BID [facility] Last Admin: 03/25/25 07:45 Dose: 40 meq Documented By: NEERU Senna (Sennosides 8.6 Mg Tablet) 17.2 mg PO BEDTIME PRN PRN Reason: Constipation Sertraline HCl (Sertraline Hcl 25 Mg Tablet) 25 mg PO DAILY [facility] Last Admin: 03/25/25 07:46 Dose: 25 mg Documented By: NEERU Sodium Chloride (0.9 % Sodium Chloride Flush 3 Ml Syringe) 3 ml IVFLUSH QSHIFT [facility] Last Admin: 03/25/25 07:46 Dose: 3 ml Documented By: NEERU Tramadol HCl (Tramadol Hcl 50 Mg Tablet) 25 mg PO Q6H PRN PRN Reason: Back pain Labs 03/25/25 05:59 03/25/25 05:59 Labs: Laboratory Results - last 24 hr 03/25/25 05:59 MCV 96.5 MCH 34.1 H MCHC 35.4 RDW 13.8 Plt Count 334 MPV 11.7 Immature Gran % (Auto) Cancelled Neut % (Auto) Cancelled Lymph % (Auto) Cancelled [place] % (Auto) Cancelled Eos % (Auto) Cancelled Baso % (Auto) Cancelled Lymph # (Auto) Cancelled [place] # (Auto) Cancelled Eos # (Auto) Cancelled Baso # (Auto) Cancelled Abs Immat Gran (auto) Cancelled Absolute Neuts (auto) Cancelled Absolute Nucleated RBC 0.000 Nucleated RBC % (auto) 0.0 Anion Gap 14 Estim Creat Clear Calc 58.3 Estimated GFR > 60 Random Glucose 82 Calcium 7.5 L Total Bilirubin 0.4 AST 16 ALT < 6 Alkaline Phosphatase 68 Total Protein 5.0 L Albumin 2.7 L Procedures Date of Service Date of Service: 03/25/25 Progress Note: A&P Assessment and plan (1) Ileus: Status: Acute Assessment and Plan: Doing well Appears to have good GI function Diet as tolerated Abdomen remained soft and very benign Okay to discharge from surgical standpoint when tolerating regular diet Time Spent With Patient Time: Total time managing care of this patient today ____ minutes. Quality Stroke Does the patient have a stroke diagnosis?: No VTE Prior VTE?: No VTE Risk Level:: Medical - moderate - high VTE Device Contraindication: N/A - Device Ordered VTE Drug Contraindication: Treatment Not Indicated
[2025-03-25 09:26] LABS: Atypical Lymph Absolute Manual 0.1 x10*3/uL; Atypical Lymphs Percent Manual 1 % (0-6); Band Neutrophils Percent 12 % (3-5); Eosinophils Absolute Manual 0.2 X10*3/uL (0.0-0.4); Eosinophils Percent Manual 2 % (0-4); Lymphocytes Absolute Manual 0.8 X10*3/uL (1.2-4.9); Lymphocytes Percent Manual 9 % (20-40); Monocytes Absolute Manual 0.3 X10*3/uL (0.1-1.2); Monocytes Percent Manual 4 % (2-11); Myelocytes Absolute 0.1 X10*/uL; Myelocytes Percent 1 %; Neutrophils Absolute Manual 7.1 X10*3/uL (2.0-8.3); Neutrophils Percent Manual 71 % (45-73); RBC Morphology NORMAL
--- NOTE | 2025-03-25 13:54 | P.DS_ITS ---
DS: Providers Provider Date of Service: 03/25/25 Date of admission: 03/19/25 16:09 Date of discharge: 03/25/25 Primary care physician: Rocael Reeves PA-C Consults: 03/19/25 16:55 Consult to General Surgery Routine Consulting Provider: [facility] General Surgeons Reason for consultation: ileus Has provider been notified: No DS: Diagnosis Discharge Diagnosis (1) Ileus: Status: Acute DS: Summary Hospital Course Hospital Course: History and physical as per admitting provider. This is an 84-year-old male who presents to the emergency department with abdominal distention. Patient reports increasing bloating over the past week although outpatient notes put it at two weeks. CT scan of the abdomen on March 15 shows dilation of the small bowel to the level of the anastomosis without a discrete obstructing lesion, findings may reflect ileus. Patient was discharged home at that time. Repeat CT scan today showing fluid distended small and large bowel without a transition zone consistent with a paralytic ileus with increasing small-bowel dilation compared to prior. Lab work showed increase in renal function with a creatinine of 2.41, hypokalemia with potassium of 2.7. The patient states he has been unable to tolerate any p.o. for the past 1 week. He has had liquid stools, no solid bowel movement for the past 1 week. He was treated with IV fluid and the decision was made to admit him for further management. 84-year-old man with a history of chronic constipation presenting with complaints of abdominal pain found to have ileus. Started on bowel regimen. Discussed with General surgery with no recommendation of any procedures. Patient's diet has been advanced, now on regular. Has been ambulating in the hallways. Patient should continue a strict bowel regimen at home. Hypokalemia. Likely secondary to poor nutrition. Resolved after repletion Hypertension Continue amlodipine GERD Continue PPI BPH Continue finasteride Frail Deconditioned, Adult failure to thrive, rec.Protein supplements PT rec home PT , will discharge with home health services. Mental health Continue home medications Time Attestation Discharge Coordination Time (in mins): 45 Quality: Safe Use of Opioids Does Pt have an Active Cancer Diagnosis on the Problem List?: No Quality: Stroke Does the patient have a stroke diagnosis?: No Physical Exam Exam: Exam: Appearing in no acute distress head is normocephalic atraumatic eyes pupils are PERRLA sclera is anicteric mouth throat mucous membranes are intact and moist neck is supple no lymphadenopathy, no JVD noted lung sounds are clear to auscultation heart regular rate rhythm, clear S1, S2 positive bowel sounds, abdomen is soft, nontender neuro patient is alert x3, no focal deficits Vital Signs: Vital Signs: Last Vital Signs Temp 97.7 F 03/25/25 07:32 Pulse 89 03/25/25 07:32 Resp 16 03/25/25 07:32 BP 133/75 03/25/25 07:32 Pulse Ox 95 03/25/25 07:32 O2 Del Method Room Air 03/25/25 07:32 O2 Flow Rate 97 03/24/25 15:28 BMI result Body Mass Index 21.4 DS: Data Data Completed and Pending Completed studies during hospitalization [Text1]: Procedures Drainage of Abdomen Skin, External Approach (05/24/21) Excision of Stomach, Pylorus, Via Natural or Artificial Opening Endoscopic, Diagnostic (06/25/21) Resection of Right Large Intestine, Open Approach (05/24/21) Labs on day of discharge: Laboratory Results - last 24 hr 03/25/25 05:59 WBC 8.6 RBC 3.75 L Hgb 12.8 L Hct 36.2 L MCV 96.5 MCH 34.1 H MCHC 35.4 RDW 13.8 Plt Count 334 MPV 11.7 Immature Gran % (Auto) Cancelled Neut % (Auto) Cancelled Lymph % (Auto) Cancelled [place] % (Auto) Cancelled Eos % (Auto) Cancelled Baso % (Auto) Cancelled Lymph # (Auto) Cancelled [place] # (Auto) Cancelled Eos # (Auto) Cancelled Baso # (Auto) Cancelled Abs Immat Gran (auto) Cancelled Absolute Neuts (auto) Cancelled Absolute Nucleated RBC 0.000 Nucleated RBC % (auto) 0.0 Neutrophils % (Manual) 71 Band Neutrophils % 12 H Lymphocytes % (Manual) 9 L Atypical Lymphs % (Man) 1 Monocytes % (Manual) 4 Eosinophils % (Manual) 2 Myelocytes % 1 Abs Neuts (Manual) 7.1 Lymphocytes # (Manual) 0.8 L Atyp Lymphs # (Manual) 0.1 Monocytes # (Manual) 0.3 Eosinophils # (Manual) 0.2 Myelocytes # 0.1 Platelet Estimate NORMAL Plt Morphology Comment NORMAL RBC Morphology NORMAL Sodium 138 Potassium 3.5 Chloride 107 Carbon Dioxide 21 L Anion Gap 14 BUN 8 L Creatinine 0.83 Estim Creat Clear Calc 58.3 Estimated GFR > 60 Random Glucose 82 Calcium 7.5 L Total Bilirubin 0.4 AST 16 ALT < 6 Alkaline Phosphatase 68 Total Protein 5.0 L Albumin 2.7 L Discharge Plan Discharge Anticipated Discharge Date/Time: 03/25/25 13:50 Patient Disposition: Home Health Service Discharge Diagnosis: Ileus LONA Referrals: [facility] [Outside] - 1 Week Referral Note: HOME SERVICES - A NURSE WILL CALL YOU TO SET UP FIRST VISIT Rocael Reeves PA-C [Primary Care Provider, Internal Medicine] - 1 Week Discharge Medications: New polyethylene glycol 3350 [Miralax] 17 gram powder in packet 17 g PO DAILY Qty: 14 0RF Continued ascorbic acid (vitamin C) 250 mg tablet 250 mg PO DAILY 90 Days Qty: 90 3RF cholecalciferol (vitamin D3) 50 mcg (2,000 unit) capsule 50 mcg PO DAILY 90 Days Qty: 90 3RF sertraline 25 mg tablet 25 mg PO DAILY 90 Days Qty: 90 2RF amlodipine [Norvasc] 5 mg tablet 5 mg PO DAILY 90 Days Qty: 90 1RF atorvastatin [Lipitor] 10 mg tablet 10 mg PO DAILY Qty: 90 1RF finasteride [Proscar] 5 mg tablet 5 mg PO DAILY Qty: 90 2RF folic acid 1 mg tablet 1 mg PO DAILY Qty: 90 0RF lorazepam 0.5 mg tablet 0.5 mg PO BID PRN (Reason: insomnia) omeprazole 40 mg capsule,delayed release(DR/EC) 40 mg PO DAILY@0630 Discharge Orders: Discharge Order (Routine); Ordered 03/25/25 Ordered By: Delilah Vargas Diet: Advance to usual diet Activity on Discharge: As tolerated Stand Alone Forms: Patient Portal Discharge page Print Language: Portuguese Care Plan Goals: Continue good bowel regimen, eat plenty of fruits and vegetables as well as fiber, ambulate daily Health Concerns: Ileus LONA Plan of Treatment: Follow up with primary care provider as needed Take all medications as prescribed Assessment: See discharge summary
--- NOTE | 2025-03-25 13:57 | W.MHC.F2F ---
Service Date Service Date: 03/25/25 Encounter Date of encounter: 03/25/25 Reasons for Services Signs and symptoms assessed: I[place] Reason for physical therapy: home safety and mobility Homebound: Leaving the home is medically contraindicated at this time without the asist of a device and/or another person due th the listed conditions above and below. Reason homebound: weakness related to hospital stay Certification: Based on the above findings, I certify that this patient is confined to the home and needs intermittent care home care, physical therapy and/or speech therapy, or continues to need occupational therapy. The patient is under my care, and I have initiated the establishment of the plan of care. The patient will be followed by a physician who will periodically review the plan of care. Time Spent With Patient Time: Total time managing care of this patient today ____ minutes.
--- NOTE | 2025-03-25 14:11 | MHC.CM.PN ---
Addendum entered by Ailyn Vela 03/25/25 14:49: FINAL IMM DELIVERED Original Note: DP: PT HAS BEEN MEDICALLY CLEARED FOR DC HOME WITH NEW [facility] FOR P.T. SERVICES. [facility] NOTIFIED OF TODAY'S DC. WILL TRANSPORT
[2025-03-25 15:39] VITALS: BP 123/67; PULSE 100; RESP 96; TEMP 36.4; O2SAT 96
== END 2025-03-25 17:05 | disposition home health service (06) | DRG 389 ==
LOC: HO.ED 13:55 → HO.EDOVER 16:39 → HO.IMC 03-20 03:13 → HO.S3 03-21 16:18
PROVIDERS: Registered Nurse Emergency; Student in an Organized Health Care Education/Training Program; Admitting Provider Physician Assistant Medical; Emergency Provider Emergency Medicine; PCP Physician Assistant; Visit Provider Nurse Practitioner Acute Care
DX: K56.0 Paralytic ileus (principal); N17.9 Acute kidney failure, unspecified; E87.6 Hypokalemia; F39 Unspecified mood [affective] disorder; K59.09 Other constipation; R62.7 Adult failure to thrive; Z68.21 Body mass index [BMI] 21.0-21.9, adult; I10 Essential (primary) hypertension; K21.9 Gastro-esophageal reflux disease without esophagitis; E78.5 Hyperlipidemia, unspecified; N40.0 Benign prostatic hyperplasia without lower urinary tract symptoms; Z79.899 Other long term (current) drug therapy
CPT/HCPCS: 36415; 71045; 74018; 74176; 80048; 80053; 82803; 82947; 83605; 83690; 83735; 84100; 84132; 84443; 84484; 85007; 85025; 85027; 87493; 87507; 93005; 96127; 97116; 97162; 99212; 99285; J1650; J3480; J7120

== ENCOUNTER → 2025-03-19 12:35 | Outpatient (BNV) | payer MEDICARE, SELFPAY | PROVIDERS: Admitting Provider Physician Assistant Medical; Emergency Provider Emergency Medicine; PCP Physician Assistant; Visit Provider Internal Medicine Cardiovascular Disease | DX: R00.0 Tachycardia, unspecified (principal) | CPT/HCPCS: 93010 ==

== ENCOUNTER → 2025-03-19 13:57 | Outpatient (BNV) | payer MEDICARE, SELFPAY | PROVIDERS: Emergency Provider Emergency Medicine; PCP Physician Assistant; Visit Provider Radiology Diagnostic Radiology | DX: K86.1 Other chronic pancreatitis (principal); K40.90 Unilateral inguinal hernia, without obstruction or gangrene, not specified as recurrent; R06.02 Shortness of breath; J98.11 Atelectasis; K82.8 Other specified diseases of gallbladder | CPT/HCPCS: 71045; 74176 ==

== ENCOUNTER 2025-03-19 16:09 | Outpatient (BNV) | payer MEDICARE, SELFPAY | END 2025-03-23 08:37 | PROVIDERS: Admitting Provider Physician Assistant Medical; Emergency Provider Emergency Medicine; PCP Physician Assistant; Visit Provider Radiology Diagnostic Radiology | DX: R14.0 Abdominal distension (gaseous) (principal) | CPT/HCPCS: 74018 ==

== ENCOUNTER → 2025-03-19 16:09 | Outpatient (BNV) | payer MEDICARE, SELFPAY | PROVIDERS: Admitting Provider Physician Assistant Medical; Emergency Provider Emergency Medicine; PCP Physician Assistant; Visit Provider Physician Assistant Surgical | DX: K56.7 Ileus, unspecified (principal) | CPT/HCPCS: 99232; 99499 ==

== ENCOUNTER → 2025-03-19 16:09 | Outpatient (BNV) | payer MEDICARE, SELFPAY | PROVIDERS: Admitting Provider Physician Assistant Medical; Emergency Provider Emergency Medicine; PCP Physician Assistant; Visit Provider Physician Assistant Medical | DX: K56.7 Ileus, unspecified (principal) | CPT/HCPCS: 99223; 99232 ==

== ENCOUNTER 2025-04-08 13:54 | Outpatient (AMB) | payer MEDICARE, SELFPAY ==
--- OUTSIDE RECORDS SUMMARY | 2025-04-03 09:30 | XMS_ITS | Encounter Summary ---
Author Organization [facility] Address [address] [facility] [address] [place] [phone] Phone Care Team Providers Care Passementerie Worker Name Role Phone Rocael Reeves Primary Care Provider + Reason for Visit * Auth/Cert (Routine) Specialty Diagnoses / Procedures Referred By Contac t Referred To Contact Referral ID Status Reason Start Date Expiration Date Visits Re quested Visits Authorized [id number] 1 1 Encounter Details Date Type Department Care Team (Late Contact Info) Description 04/03/2025 9:30 AM EDT Home [facility] Visit [facility] [address] [place] [phone] Echo Aquino I, PT [address] [place] [address] PT HOME VISIT Social History Tobacco Use Types Packs/Day Years Used Date Smoking Tobacco: Never Smokeless Tobacco: Never Home Health Assessment: Transportation Answer Date Recorded Lack of Transportation (Medical) No 03/26/2025 Lack of Transportation (Non-Medical) No 03/26/2025 Patient Unable or Declines to Respond No 03/26/2025 Education Answer Date Recorded Are you interested [...] as of this encounter Plan of Treatment Upcoming Encounters Date Type Department Care Team (Late Contact Info) Description 04/09/2025 9:30 AM EDT [facility] [address] [place] [phone] Veena Nicole, PT [address] [place] [address] 04/13/2025 1:30 PM EDT Home [facility] Visit [facility] [address] [place] [phone] BiStefania Jefferson, OT [address] [place] [address] [email or web address] 04/14/2025 9:30 AM EDT [facility] [address] [place] [phone] Veena Nicole, PT [address] [place] [address] [email or web address] 04/20/2025 12:45 AM EDT Home [facility] Visit [facility] [address] [place] [phone] BiStefania Jefferson, OT [address] [place] [address] [email or web address] 04/21/2025 12:45 AM EDT Appointment [facility] [address] [place] [phone] Veena Nicole, PT [address] [place] [address] documented as of this encounter Visit Diagnoses Not on filedocumented in this encounter Home Health Visit - Care Plan Visit Details Visit Type -PT HOME VISIT Discipline -Physical Therapy Problems Problem Description Start Date Status Goals Interve ntions HH - Telehealth/Virtua l Care Disciplines: All Active Home Health Disciplines 03/26/2025 Active 1 goal linked to scheduled/document ed intervention 1 goal intervention scheduled/document ed in this visit HH - Medication Management Disciplines: All Active Home Health Disciplines 03/26/2025 Active 1 goal linked to scheduled/document ed intervention 2 goal interventions scheduled/document ed in this visit HH - Focus of Care and Teaching Disciplines: All Active Home Health Disciplines w/RD 03/26/2025 Active 1 goal linked to scheduled/document ed intervention 1 goal intervention scheduled/document ed in this visit HH - Emergency Planning - Knowledge of Disciplines: All Active Home Health Disciplines 03/26/2025 Active 1 goal linked to scheduled/document ed intervention 2 goal interventions scheduled/document ed in this visit HH - Mobility and Activity Tolerance - Impaired Disciplines: Physical Therapy 03/26/2025 Active 1 goal linked to scheduled/document ed intervention 2 goal interventions scheduled/document ed in this visit HH - Standard of Care Disciplines: All Active Home Health Disciplines 03/26/2025 Active 1 goal linked to scheduled/document ed intervention 2 goal interventions scheduled/document ed in this visit HH - Pain Disciplines: All Active Home Health Disciplines 03/26/2025 Active 1 goal linked to scheduled/document ed intervention 2 goal interventions scheduled/document ed in this visit Goals Goal Associated Problem Outcome Goal Met? Visit Notes HH - Telehealth visits along with in-person home visits will be utilized when appropriate to achieve optimal wellness and home safety Description: not anticipated HH - Telehealth/Virtual Care No HH - Safe medication management, avoid unnecessary harm related to medication errors and/or interactions HH - Medication Management No HH - Communication and collaboration to achieve patient goals HH - Focus of Care and Teaching No HH - Knowledge of options for managing care in the event of an emergency related situation. HH - Emergency Planning - Knowledge of No HH - Demonstrate maximum mobility and activity level for safe function Description: pt will increase Tinetti score to 23 /28 and distance/time >= 10 min allowing indep involvement in community by 04/22 pt will demonstrate indep HEP c 90% accuracy allowing indep advance of function by 04/22/25 pt will report confidence as well as demonstrate safe ambulation in the home including entry/exit from the home c LRD allowing return to all IADL and community involvement by 04/22/25 HH - Mobility and Activity Tolerance - Impaired No HH - Achieve care management for a safe to home/community discharge from homecare HH - Standard of Care No HH - Frequency of pain interfering with patient's activity or movement will improve with activity or movement by discharge. Description: Pain will be managed over the course of care. Patient's acceptable level of pain is 1 - pain that doesn't interfere. HH - Pain No Interventions Intervention Associated Problem/Goal Status Variance Visit Notes HH - Assess the patient's access/technology, monitoring device availability, cognitive, mental, physical ability, and willingness to effectively participate in telehealth care Problem:HH - Telehealth/Virtual Care Goal:HH - Telehealth visits along with in-person home visits will be utilized when appropriate to achieve optimal wellness and home safety Completed HH - I/E medication management: administration, purpose, dosages, preparation, setup, scheduling, side effects, food/drug interactions, and potential complications as indicated Description: Update patient's copy of medication list as needed. Problem:HH - Medication Management Goal:HH - Safe medication management, avoid unnecessary harm related to medication errors and/or interactions Completed HH - Complete medication review every visit and medication reconciliation as indicated. Pharmacy information: Description: completed, no discrepancies Problem:HH - Medication Management Goal:HH - Safe medication management, avoid unnecessary harm related to medication errors and/or interactions Completed HH - Focus of care, teaching completed and plan for next visit Problem: - Focus of Care and Teaching Goal:HH - Communication and collaboration to achieve patient goals Completed Primary Clinical Focus this Visit & Instruction Provided: s: better; still sleeping on low recliner; doing ex, walking in the yard 3-4 x/day, about 15 minutes each I think I am also apprehensive because of my 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 o; pt states 5-8/10, on questioning seems confused even after explanation about the pain scale; states mild when offered mild/mod/severe; however also seems to have had mod pain at rest a few days ago after having visitors elevated HR; call to PCP; monitored throughout visit deferred LE ex; practiced transfers from dining room rosi as pt is observed hoisting himself up using walker agency development manager plus from low recliner; cued for wide stance; maintaining max spinal length, using at least one hand on higher surface; practice bed transfer sit-stand: immediate pain on siting down and rising; practiced same principle, initially c help of one hand on walker, then both hands on bed but avoiding lumbar flexion using quick push on rising , x10 gait training in the home c cues for large steps; posture, staying close to walker at end of visit HR 100 a: improving somewhat; there seems to be an element of fear involved due to long hx of pain and immobility leading to suboptimal mvt patterns; pt to concentrate on comfortable STS from all surfaces , c goal of reaching STS from bed s fear or pain Instruction Provided to: patient and caregiver Response to Instruction/Teaching: Is partially able to teach back topics. Plan for Next Visit Specific Focus & Education Needed: review and advance standing ex, gait, transfer training; attempt supine- sit again if pt can pain free do STS from bed New Orders: n/a Updated Discharge Plan: n/a HH - I/E management of care in an urgent or emergency (ER) situation: When to call your Home Care Team/911, ER plans, supplies, evacuation, when to contact local ER officials and how to stay informed Problem: - Emergency Planning - Knowledge of Goal:HH - Knowledge of options for managing care in the event of an emergency related situation. Completed - Emergency planning assessment: the emergency plan, supplies needed, emergency contact numbers and an evacuation plan were reviewed Description: Patient and Caregiver is/are knowledgeable of emergency plans. Problem: - Emergency Planning - Knowledge of Goal:HH - Knowledge of options for managing care in the event of an emergency related situation. Completed HH - Therapeutic interventions, as indicated: Description: durable medical equipment training, gait/stair training, therapeutic exercise/home exercise program, transfer training, including bathroom transfers and balance training Problem:HH - Mobility and Activity Tolerance - Impaired Goal:HH - Demonstrate maximum mobility and activity level for safe function Completed This visit see cn HH - I/E therapeutic function/activity: Description: As indicated: activity promotion and management, functional mobility training, therapeutic exercise and home exercise program, device use. Problem:HH - Mobility and Activity Tolerance - Impaired Goal:HH - Demonstrate maximum mobility and activity level for safe function Completed HH - Assess vital signs, pulse oximetry, pain, and as indicated, orthostatic vital signs Description: use agency-specific parameters Problem: - Standard of Care Goal:HH - Achieve care management for a safe to home/community discharge from homecare Completed HH - Assess skin integrity Problem:HH - Standard of Care Goal:HH - Achieve care management for a safe to home/community discharge from homecare Completed HH - Assess pain Problem: - Pain Goal:HH - Frequency of pain interfering with patient's activity or movement will improve with activity or movement by discharge. Completed HH - I/E pain management Problem:HH - Pain Goal:HH - Frequency of pain interfering with patient's activity or movement will improve with activity or movement by discharge. Completed documented in this encounter Care Teams Passementerie Worker Relationship Specialty Start Date End Date Rocael Reeves PA [address] [place] [address] PCP - General Physician Ophthalmologist 03/03/24 documented as of this encounter Additional Source Comments The information contained in this document represents components of the legal health record. It is not the complete legal health record.[facility]
--- OUTSIDE RECORDS SUMMARY | 2025-04-06 10:00 | XMS_ITS | Encounter Summary ---
Author Organization [facility] Address [address] [facility] [address] [place] [phone] Phone Care Team Providers Care Nursing Home Assistant Name Role Phone Rocael Reeves Primary Care Provider + Reason for Visit * Auth/Cert (Routine) Specialty Diagnoses / Procedures Referred By Sherry t Referred To Contact Referral ID Status Reason Start Date Expiration Date Visits Re quested Visits Authorized [id number] 1 1 Encounter Details Date Type Department Care Team (Late st Contact Info) Description 04/06/2025 10:00 AM EDT [facility] Visit [facility] [address] [place] [phone] Stefania Tan, OT [address] [place] [address] [email or web address] HOME VISIT Social History Tobacco Use Types [...] on file documented as of this encounter Last Filed Vital Signs Vital Sign Reading Time Taken Comments Blood Pressure 112/62 04/06/2025 10:30 AM EDT Pulse 112 04/06/2025 10:30 AM EDT Temperature 36.9 C (98.4 F) 04/06/2025 10:30 AM EDT Respiratory Rate 16 04/06/2025 10:30 AM EDT Oxygen Saturation 97% 04/06/2025 10:30 AM EDT Inhaled Oxygen Concentration - - Weight - - Height - - Body Mass Index - - documented in this encounter Plan of Treatment Upcoming Encounters Date Type Department Care Team (Late st Contact Info) Description 04/09/2025 9:30 AM EDT [facility] Visit [facility] [address] [place] [phone] Veena Nicole, PT [address] [place] [address] 04/13/2025 1:30 PM EDT Home [facility] Visit [facility] [address] [place] [phone] Stefania Tan, OT [address] [place] [address] [email or web address] 04/14/2025 9:30 AM EDT Home [facility] Visit [facility] [address] [place] [phone] Veena Nicole, PT [address] [place] [address] 04/20/2025 12:45 AM EDT Home Care Visit [facility] [address] [place] [phone] Stefania Tan, OT [address] [place] [address] [email or web address] 04/21/2025 12:45 AM EDT Appointment [facility] [address] [place] [phone] Veena Nicole, PT [address] [place] [address] [email or web address] documented as of this encounter Visit Diagnoses Not on filedocumented in this encounter Home Health Visit - Care Plan Visit Details Visit Type -OT HOME VISIT Discipline -Occupational Therapy Problems Problem Description Start Date Status [...] scheduled/document ed in this visit HH - Infection - Actual or Risk of Disciplines: All Active Home Health Disciplines 03/26/2025 Active 1 goal linked to scheduled/document ed intervention 1 goal intervention scheduled/document ed in this visit HH - Falls - Risk of Disciplines: All Active Home Health Disciplines 03/26/2025 Active 1 goal linked to scheduled/document ed intervention 1 goal intervention scheduled/document ed in this visit HH - Standard of Care Disciplines: All Active Home Health Disciplines 03/26/2025 Active 1 goal linked to scheduled/document ed intervention 3 goal interventions scheduled/document ed in this visit HH - Pain Disciplines: All Active Home Health Disciplines 03/26/2025 Active 1 goal linked to scheduled/document ed intervention 2 goal interventions scheduled/document ed in this visit HH - ADL/IADL Impairment and Therapeutic Interventions Disciplines: Occupational Therapy 03/30/2025 Active 1 goal linked to scheduled/document ed [...] Planning - Knowledge of No HH - Patient will have no new infection; any new infection that occurs will be identified and treated promptly; existing infection will resolve without complication Description: Patient and caregiver(s) will demonstrate understanding of infection prevention, monitoring, and treatment as appropriate HH - Infection - Actual or Risk of No HH - Knowledge and management of fall prevention measures. HH - Falls - Risk of No HH - Achieve care management for [...] that doesn't interfere. HH - Pain No HH - Promote higher level of independence with performance of ADLs/IADLs. Description: Pt will be Mod I with shower xfer using DME/AT/LRAD as needed by 04/24/25. Pt will be Mod I with showering using DME/AT/LRAD as needed by 04/24/25. Pt will be Mod I with light meal prep using AE/AT/LRAD by 04/24/25. Pt will be Mod I with LB dressing using AE/AT/LRAD as needed by 04/24/25. HH - ADL/IADL Impairment and Therapeutic Interventions Progressing No Interventions Intervention Associated Problem/Goal Status Variance [...] teaching completed and plan for next visit Problem:HH - Focus of Care and Teaching Goal:HH - Communication and collaboration to achieve patient goals Completed Primary Clinical Focus this Visit & Instruction Provided: Pt agreed to tx session. HR 112 no symptomatic, MD notified. Pt has MD appt on Sunday. pt reported pain LBP is better sleeps on recliner chair. Pt reported has a new bed and mattress is coming Sunday and he has not sleep on new bed yet. pt walked with rollator at spv level, completed sit<>supine in bed using log roll spv level vc/tc recommended to obtain bed rail assist, pt instructed with use of pillow for positioning in bed to decrease pressure on spine pt returned demonstration spv vc/tc. pt walked to kitchen with rollator at spv level pt instructed with light meal prep using rollator and ECT, use of knees to bend rather than back and one hand support on counter to access lower level cabinet. Pt reported cooked chicken and vegetable on over counter oven yesterday, pt instructed with ECT doing prep part seated when possible, use of counter to slid heavy items rather than lifting. Pt reported did showering himself with spv from . pt ED with deep breathing exercise to lower HR pt returned demonstration vc. Instruction Provided to: patient Response to Instruction/Teaching : Is partially able to teach back topics as evidenced by vc/tc. Plan for Next Visit Specific Focus & Education Needed: ther ex/ther act New Orders: n/a Updated Discharge Plan: n/a HH - I/E management of care in an urgent or emergency (ER) situation: When to call your Home Care Team/911, ER plans, supplies, evacuation, when to contact local ER officials and how to stay informed Problem:HH - Emergency Planning - Knowledge of Goal:HH - Knowledge of options for managing care in the event of an emergency related situation. Completed HH - Emergency planning assessment: the emergency plan, supplies needed, emergency contact numbers and an evacuation plan were reviewed Description: Patient and Caregiver is/are knowledgeable of emergency plans. Problem:HH - Emergency Planning - Knowledge of Goal:HH - Knowledge of options for managing care in the event of an emergency related situation. Completed HH - Assess infection risk and s/s Problem:HH - Infection - Actual or Risk of Goal:HH - Patient will have no new infection; any new infection that occurs will be identified and treated promptly; existing infection will resolve without complication Completed HH - Complete fall risk assessment scale Problem:HH - Falls - Risk of Goal:HH - Knowledge and management of fall prevention measures. Completed HH - Assess vital signs, pulse oximetry, pain, and as indicated, orthostatic vital signs Description: use agency-specific parameters Problem:HH - Standard of Care Goal:HH - Achieve care management for a safe to home/community discharge from homecare Completed HH - Assess skin integrity Problem:HH - Standard of Care Goal:HH - Achieve care management for a safe to home/community discharge from homecare Completed HH - I/E discharge plan Problem:HH - Standard of Care Goal:HH - Achieve care management for a safe to home/community discharge from homecare Completed HH - Assess pain Problem:HH - Pain Goal:HH - Frequency of pain interfering with patient's activity or movement will improve with activity or movement by discharge. Completed HH - I/E pain management Problem:HH - Pain Goal:HH - Frequency of pain interfering with patient's activity or movement will improve with activity or movement by discharge. Completed HH - I/E ADL/IADL performance, safety, and management Description: As indicated: ADL/IADL training, functional mobility training, adaptive equipment: recommendations and use, therapeutic exercise and home exercise program, safety, energy conservation/pacing. Problem:HH - ADL/IADL Impairment and Therapeutic Interventions Goal:HH - Promote higher level of independence with performance of ADLs/IADLs. Completed HH - Assess ADL/IADL performance, safety, management, and durable medical equipment Problem:HH - ADL/IADL Impairment and Therapeutic Interventions Goal:HH - Promote higher level of independence with performance of ADLs/IADLs. Completed documented in this encounter Care Teams Nursing Home Assistant Relationship Specialty Start Date End Date Rocael Reeves PA [address] [place] [phone] PCP - General Physician Duplicating Machine Operator 03/03/24 documented as of this encounter Additional Source Comments The information contained in this document represents components of the legal health record. It is not the complete legal health record.[facility]
--- OUTSIDE RECORDS SUMMARY | 2025-04-07 09:15 | XMS_ITS | Encounter Summary ---
Author Organization [facility] Address [address] [facility] [address] [place] [phone] Phone Care Team Providers Care Grain Combiner Name Role Phone Rocael Reeves Primary Care Provider + Reason for Visit * Reason Comments Weakness * Auth/Cert (Routine) Specialty Diagnoses / Procedures Referred By Sherry paulson Referred To Contact Referral ID Status Reason Start Date Expiration Date Visits Re quested Visits Authorized [id number] 1 1 Encounter Details Date Type Department Care Team (Late st Contact Info) Description 04/07/2025 9:15 AM EDT Home [facility] Visit [facility] [address] [place] [phone] Veena Nicole, PT [address] [place] [address] [email or web address] PT HOME VISIT Social History Tobacco Use [...] Sign Reading Time Taken Comments Blood Pressure 122/66 04/07/2025 9:47 AM EDT Pulse 104 04/07/2025 9:47 AM EDT Temperature 36.6 C (97.8 F) 04/07/2025 9:47 AM EDT Respiratory Rate - - Oxygen Saturation 97% 04/07/2025 9:47 AM EDT Inhaled Oxygen Concentration - - Weight - - Height - - Body Mass Index - - documented in this encounter Plan of Treatment Upcoming Encounters Date Type Department Care Team (Late st Contact Info) Description 04/09/2025 9:30 AM EDT Home Care Visit [facility] [address] [place] [phone] Veena Nicole, PT [address] [place] [address] [email or web address] 04/13/2025 1:30 PM EDT Home Care Visit [facility] [address] [place] [phone] Stefania Tan, OT [address] [place] [address] [email or web address] 04/14/2025 9:30 AM EDT Home Care Visit [facility] [address] [place] [phone] Veena Nicole, PT [address] [place] [address] [email or web address] 04/20/2025 12:45 AM EDT Home Care Visit [facility] [address] [place] [phone] Stefania Tan, OT [address] [place] [address] [email or web address] 04/21/2025 12:45 AM EDT Appointment [facility] [address] [place] [phone] Veena Nicole, PT [address] [place] [address] [email or web address] documented as of this encounter Visit Diagnoses [...] - Mobility and Activity Tolerance - Impaired Progressing No HH - Achieve care management for a safe to home/community discharge from homecare HH - Standard of Care No Interventions Intervention Associated Problem/Goal Status Variance [...] patient's copy of medication list as needed. Problem: - Medication Management Goal:HH - Safe medication management, avoid unnecessary harm related to medication errors and/or interactions Completed HH - Complete medication review every visit and medication reconciliation as indicated. Pharmacy information: Description: completed, no discrepancies Problem: - Medication Management Goal:HH - Safe medication management, avoid unnecessary harm related to medication errors and/or interactions Completed HH - Focus of care, teaching completed and plan for next visit Problem: - Focus of Care and Teaching Goal:HH - Communication and collaboration to achieve patient goals Completed Primary Clinical Focus this Visit & Instruction Provided: Patient sitting in living room chair at time of PT arrival. He reports less back pain and increased mobility over the past several days. Pain 0/10 at rest and increases periodically to 8/10 with mobility but he reports pain will then return to 0/10 after a seated rest. He continues to sleep in his recliner. received bed bar And installed it on bed this a.m. Patient does wish to transition to bed but seems anxious due to prior issues/limitations. Updated patient and that XANDER Ritter from PCP office, contacted OT yesterday stating that a script for metoprolol would be sent to the pharmacy. unaware but plans to check in with pharmacy if she doesn't hear from them later today. Patient also has appointment scheduled with PCP tomorrow afternoon. He continues to maintain a good fluid intake. Bowels moving regularly. He does report some looseness with his BM this morning with PT recommending he speak with PCP tomorrow to determine best practice with use of MiraLAX. Gait training: patient ambulating with Rollator walker with education provided to maintain core stabilization/abdomin al tightening throughout all mobility. Patient noted with upright posture and good reciprocal pattern. He is utilizing bilateral UE on Rollator for support but not placing increased weight-bearing through arms. He is recommended to continue to increase ambulation as primary exercise. Transfers: patient completed sit to stand transfer from living room chair, recliner, and EOB. Again, cued him for abdominal bracing for transfer with good effect noted. Also provided education for patient in regards to keeping Rollator aligned in front of him when transitioning to and from different surfaces so that it is available when he stands back up but also to keep him from having to step around wheels of walker which increases his risk for falls. Bed mobility: utilizing bed rail, patient cued to position himself as close to pillows as possible and to utilize log rolling technique for transitions from sitting to supine and back. Also cued him for abdominal bracing. Initially, patient twisting at trunk and lying on back while bringing legs into bed. With logrolling technique he reported decreased pain. Attempted bridging in bed but patient with discomfort therefore will re-address at another visit. Patient does report feeling more confident when using bed rail. Strengthening: patient has standing LE exercise program that he had placed on hold by PT due to discomfort. Readdressed HEP and added heel raise at counter back into HEP. Cued him for abdominal bracing throughout. Patient with mild report of discomfort therefore only one exercise added at this time. Will address at next visit and progress as able. Instruction Provided to: patient Response to Instruction/Teaching: Is fully able to teach back topics. Plan for Next Visit Specific Focus & Education Needed: progress HEP; standing balance New Orders: none Updated Discharge Plan: transition to self care HH - I/E management of care in [...] level for safe function Completed This visit transfers, bed mobility, gait, balance, strengthening HH - I/E therapeutic function/activity: Description: As indicated: activity promotion and management, functional mobility training, therapeutic exercise and home exercise program, device use. Problem:HH - Mobility and Activity Tolerance - Impaired Goal:HH - Demonstrate maximum mobility and activity level for safe function Completed HH - Assess therapeutic function/activity and need for durable medical equipment Problem:HH - Mobility and Activity Tolerance - Impaired Goal:HH - Demonstrate maximum mobility and activity level for safe function Completed HH - Assess vital signs, pulse oximetry, pain, and as indicated, orthostatic vital signs Description: use agency-specific parameters Problem: - Standard of Care Goal:HH - Achieve care management for a safe to home/community discharge from homecare Completed HH - Assess skin integrity Problem: - Standard of Care Goal:HH - Achieve care management for a safe to home/community discharge from homecare Completed HH - I/E discharge plan Problem:HH - Standard of Care Goal:HH - Achieve care management for a safe to home/community discharge from homecare Completed documented in this encounter Care Teams Grain Combiner Relationship Specialty Start Date End Date Rocael Reeves PA [address] [place] [phone] PCP - General Physician Snow Blower 03/03/24 documented as of this encounter Additional Source Comments The information contained in this document represents components of the legal health record. It is not the complete legal health record.[facility]
--- OUTSIDE RECORDS SUMMARY | 2025-04-08 09:00 | XMS_ITS | Encounter Summary ---
Author Organization [facility] Address [address] [facility] [address] [place] [phone] Phone Care Team Providers Care Shaker Repairer Name Role Phone Rocael Reeves Primary Care Provider + Reason for Visit * Auth/Cert (Routine) Specialty Diagnoses / Procedures Referred By Sherry t Referred To Contact Referral ID Status Reason Start Date Expiration Date Visits Re quested Visits Authorized [id number] 1 1 Encounter Details Date Type Department Care Team (Late st Contact Info) Description 04/08/2025 9:00 AM EDT Home [facility] Visit [facility] [address] [place] [phone] Stefania Tan, OT [address] [place] [address] [email or web address] Social History [...] 04/09/2025 9:30 AM EDT Home [facility] Visit [facility] [address] [place] [phone] Veena Nicole, PT [address] [place] [address] [email or web address] 04/13/2025 1:30 PM EDT Home Care Visit [facility] [address] [place] [phone] BiStefania Jefferson, OT [address] [place] [address] [email or web address] 04/14/2025 9:30 AM EDT Home Care Visit [facility] [address] [place] [phone] Veena Nicole, PT [address] [place] [address] [email or web address] 04/20/2025 12:45 AM EDT Home Care Visit [facility] [address] [place] [phone] BiStefania Jefferson, OT [address] [place] [address] [email or web address] 04/21/2025 12:45 AM EDT Appointment [facility] [address] [place] [phone] Veena Nicole, PT [address] [place] [address] [email or web address] documented as of this encounter Visit Diagnoses [...] Planning - Knowledge of No HH - Achieve care management [...] to achieve optimal wellness and home safety Scheduled HH - I/E medication management: administration, purpose, dosages, preparation, setup, scheduling, side effects, food/drug interactions, and potential complications as indicated Description: Update patient's copy of medication list as needed. Problem: - Medication Management Goal:HH - Safe medication management, avoid unnecessary harm related to medication errors and/or interactions Scheduled HH - Complete medication review every visit and medication reconciliation as indicated. Pharmacy information: Description: completed, no discrepancies Problem: - Medication Management Goal:HH - Safe medication management, avoid unnecessary harm related to medication errors and/or interactions Scheduled HH - Focus of care, teaching completed and plan for next visit Problem:HH - Focus of Care and Teaching Goal:HH - Communication and collaboration to achieve patient goals Scheduled - I/E management of care in an urgent or emergency (ER) situation: When to call your Home Care Team/[facility], ER plans, supplies, evacuation, when to contact local ER officials and how to stay informed Problem:HH - Emergency Planning - Knowledge of Goal:HH - Knowledge of options for managing care in the event of an emergency related situation. Scheduled HH - Emergency planning assessment: the emergency plan, supplies needed, emergency contact numbers and an evacuation plan were reviewed Description: Patient and Caregiver is/are knowledgeable of emergency plans. Problem:HH - Emergency Planning - Knowledge of Goal:HH - Knowledge of options for managing care in the event of an emergency related situation. Scheduled HH - Assess vital signs, pulse oximetry, pain, and as indicated, orthostatic vital signs Description: use agency-specific parameters Problem: - Standard of Care Goal:HH - Achieve care management for a safe to home/community discharge from homecare Scheduled HH - Assess skin integrity Problem: - Standard of Care Goal:HH - Achieve care management for a safe to home/community discharge from homecare Scheduled documented in this encounter Care Teams Shaker Repairer Relationship Specialty Start Date End Date Rocael Reeves PA [address] [place] [phone] PCP - General Physician [employer] Platemaker 03/03/24 documented as of this encounter Additional Source Comments The information contained in this document represents components of the legal health record. It is not the complete legal health record.[facility]
[2025-04-08 14:15] VITALS: BP 94/52; PULSE 106; RESP 18; TEMP 36.3; O2SAT 95; BMI 20.4
--- NOTE | 2025-04-08 14:15 | A.OFFPC_ITS ---
Vital Signs 04/08/25 14:15 Height 5 ft 6 in Weight 126 lb 8.725 oz BMI 20.4 BP 94/52 L Blood Pressure Location Lt brachial Position Sitting Respiration 18 Pulse 106 H Pulse Source Pulse Oximeter Temp 97.3 F Temp Source Temporal Artery Scan Pulse Oximetry (%) 95 Oxygen Delivery Method Room Air Intake Visit Reasons: [facility] 03/25 LONA HYPOKAELMIA f/u HTN Wireless Field Technician Required: No Accompanied by: Self / Same As Patient Allergies lisinopril Allergy (Severe, Verified 04/08/25 14:38) lip swelling hydrochlorothiazide Adverse Reaction (Severe, Verified 04/08/25 14:38) dizziness/ hyponatremia Medication List - Last Reconciled 04/08/25 by Rocael Reeves PA-C amlodipine (Norvasc) 5 mg PO DAILY 90 days ascorbic acid (vitamin C) 250 mg PO DAILY 90 days atorvastatin (Lipitor) 10 mg PO DAILY cholecalciferol (vitamin D3) 50 mcg PO DAILY 90 days cyclobenzaprine 10 mg PO BEDTIME PRN finasteride (Proscar) 5 mg PO DAILY folic acid 1 mg PO DAILY lorazepam 0.5 mg PO BID PRN metoprolol succinate ER 25 mg PO DAILY 30 days naproxen 500 mg PO BID PRN omeprazole 40 mg PO DAILY@0630 polyethylene glycol 3350 (Miralax) 17 grams PO DAILY sertraline 25 mg PO DAILY 90 days Tobacco use date assessed: 04/08/25 Fall risk assessment: 1 Fall in past year Last assessed Fall Risk: 04/08/25 Dental Screening Dental Screen Date: 04/08/25 Did you have a dental visit in the last 12 months?: Yes Did you have a dental problem in the last 6 months where you did not have access to dental care?: No Was dental information given to patient?: Patient has dentist HPI [facility] 03/25 LONA HYPOKAELMIA f/u HTN HPI Details Patient is an 84-year-old male here today for hospital discharge follow-up.. Patient discharged on March 25 Patient recently hospitalized for increased bloating and fatigue. Repeat CT scan showing fluid distended small and large bowel with a transition zone consistent with a possible ileus. General surgeon did not recommend any procedure. His diet was advanced and he was returned home. During his hospitalization was found to have an acute kidney injury with a creatinine of 2.4 and was found to have a low potassium at 2.7. He was treated with IV fluids. Since his discharge he has been having [facility] home nurses coming to do eval, has been noted to have elevated heart rates 100s to 110s at home. Today in office blood pressure slightly low. We discuss perhaps holding off on metoprolol due to fears of lowering blood pressure further. In his going possible he is still dehydrated as he admits to only drinking 2-3 cups of water per day. TCM TCM Information Date of Discharge 03/25/25 Discharged From [facility] Interactive Contact Date (Reference documentation from this date) 03/26/25 [facility] Medical History History of colon cancer Left sided abdominal pain History of urinary frequency Adenocarcinoma of cecum HTN (hypertension) Anemia Hyperlipidemia Surgical History S/P right colectomy History of esophagogastroduodenoscopy (EGD) History of colon resection (~2020) Hx of eye surgery H/O colonoscopy History of left inguinal hernia repair (~02/2018) Family History Father No problems noted. Mother No problems noted. Brother Cardiovascular disease Diabetes Social History Household Members: Spouse Household Members Other:: Housing: Apartment Are you a primary daycare manager to a significant other at home: No Do you presently have visiting nurse or other home services: No (would like some) Alcohol intake: current Alcohol intake frequency: 3 or more drinks per day Alcohol type: wine Patient Tobacco Use Status: Never used Tobacco e-Cigarette/Vaping Use: Never Used Second Hand Smoke Exposure: No Advance Directives Date on File: 04/12/21 service: No Current occupational status: retired Cognitive needs: No Hearing needs: No Vision needs: Yes (glasses) Questionnaire Thrive Questionnaire Date Thrive assessed: 07/28/24 I am a: Patient What is your living situation today?: I have a steady place to live Within the past 12 months, did the food you bought not last and you didn't have the money to get more?: Never true Within the past 12 months, did you worry whether your food would run out before you got money to buy more?: Never true Do you have trouble paying for medicines?: No Do you have trouble getting transportation to medical appointments?: No Do you have trouble paying your heating and electricity bill?: No Do you have trouble taking care of your child, family member or friend?: No Do you have trouble with day-to-day activities such as bathing, preparing meals, shopping, managing finances, etc.?: No Are you currently unemployed and looking for a job?: No Are you interested in more education?: No Please select the resources that you would like help with: None Currently or been in a relationship where the following occur: I choose not to answer THRIVE Score: 0 KEN-7 AMB Questionnaire KEN-7 Date KEN - 7 assessed: 03/19/25 Source: Developed by Drs. Joseph Riggins, Cheryl Johnson, Uche Isabel and colleagues, with an educational aurelio from [employer]. Review of Systems Const Denies headache(s) Eyes Denies loss of vision ENT Denies vertigo, Denies dizziness, Denies headache(s) and Denies sore throat Card Denies chest pain, Denies leg edema and Denies lightheadedness Resp Denies cough, Denies hemoptysis and Denies wheezing GI Denies abdominal pain, Denies melena, Denies constipation, Denies diarrhea and Denies vomiting Denies dysuria, Denies urinary frequency and Denies urinary urgency Musc Denies arthralgias, Denies joint swelling, Denies numbness and Denies tingling Neuro Denies Abnormal speech present, Denies behavioral changes, Denies vertigo, Denies dizziness, Denies headache(s), Denies loss of vision, Denies memory loss, Denies numbness and Denies tingling Psych Denies anxiety, Denies behavioral changes, Denies depression, Denies memory loss and Denies panic attacks Alek/Lymph Denies easy bleeding and Denies easy bruising Aller/Immun Denies wheezing Physical exam (Primary Care) Vital Signs: Last Vital Signs Temp 97.3 F 04/08/25 14:15 Pulse 106 H 04/08/25 14:15 Resp 18 04/08/25 14:15 BP 94/52 L 04/08/25 14:15 Pulse Ox 95 04/08/25 14:15 Oxygen Delivery Method Room Air 04/08/25 14:15 BMI result Body Mass Index 20.4 Tobacco/Smoking Status: Tobacco use Status Tobacco use date assessed 04/08/25 04/08/25 14:18 Patient Tobacco Use Status Never used Tobacco 04/08/25 14:18 e-Cigarette/Vaping Use Never Used 04/08/25 14:18 Thrive Assessment: Date of Thrive Assessment Date Thrive assessed 07/28/24 04/08/25 14:18 Currently or been in a relationship where the following occur: I choose not to answer Const General: healthy appearing, no acute distress, alert and awake Nutritional Appearance: well nourished Orientation/consciousness: oriented to person, oriented to place and oriented to time HENMT Ears: TM's normal bilaterally General nose exam: Normal nasal mucous membranes and turbinates present Eyes Conjunctivae: conjunctivae normal Sclerae: sclerae normal Pupils: Equal, round and reactive pupils present Neck Neck: Yes no lymphadenopathy and Yes no JVD Thyroid: Thyroid normal Carotids: no bruits Resp Effort & Inspection: normal respiratory effort and not tachypneic Auscultation: no crackles, no rales, no rhonchi and no wheezes Cardio Rate: regular rate Rhythm: regular rhythm Heart sounds: no murmurs and normal S1 and S2 GI Palpation (GI): Soft to palpation, nontender, no hepatomegaly and no splenomegaly Auscultation: normal bowel sounds Skin General skin exam: no rashes or lesions noted and dry skin Neuro General: oriented to person, oriented to place and oriented to time Cranial nerves: Yes Equal, round and reactive pupils present Speech: No Abnormal speech present Gait exam (Neuro): Normal gait present Motor exam (neuro): no tremor noted Extrem Right upper extremity: full ROM Left upper extremity: full ROM Right lower extremity: full ROM; no edema Left lower extremity: full ROM; no edema Psych Mental Status: mental status grossly normal Speech and movement: Normal speech and movement present Affect: normal affect Attitude: cooperative Thought process: Normal thought process present Coding Level of Care Code Est Pt Level 4 (36234) Diagnoses Hospital discharge follow-up Z09 Thoracic spine pain M54.6 Dehydration, mild E86.0 Mild cognitive disorder F09 Tachycardia R00.0 Assessment & Plan Assessment & Plan (1) Hospital discharge follow-up: Code(s): Z09 - Encounter for follow-up examination after completed treatment for conditions other than malignant neoplasm Category: Medical Plan: As per HPI (2) Thoracic spine pain: Code(s): M54.6 - Pain in thoracic spine Category: Medical Plan: The patient will continue using cyclobenzaprine at night for muscle spasms, as i t has been effective in aiding sleep and providing relief. (3) Dehydration, mild: Code(s): E86.0 - Dehydration Category: Medical Plan: For tachycardia, the focus will be on managing pain and ensuring adequate hydration, as these factors may contribute to the elevated heart rate. The patient is encouraged to increase fluid intake, particularly with electrolyte- containing beverages, to address dehydration. (4) Mild cognitive disorder: Code(s): F09 - Unspecified mental disorder due to known physiological condition Category: Medical Plan: Patient's has noted a decline in patient's cognitive especially in the afternoons. We did discuss with about trying medication though would like to hold off on this for now. Neurology evaluation also considered. (5) Tachycardia: Code(s): R00.0 - Tachycardia, unspecified Category: Medical Plan: Tachycardia likely related to his hydration status us advised on increasing fluid intake it particularly with fluids with electrolytes. Will hold off on metoprolol for now and continue monitoring vitals at home with VNA. If heart rates continue to be above 100 even with good hydration status will consider starting metoprolol
--- OUTSIDE RECORDS SUMMARY | 2025-04-08 16:26 | XMS_ITS | Clinical Summary ---
Author Organization [facility] Address [address] [place], [place] [id number] Phone Care Team Providers Care Electrical Accessories Ii Assembler Name Role Phone Rocael Reeves Primary Care Provider + Allergies No known active allergies Medications amLODIPine (NORVASC) 5 MG tablet Take 1 tablet by mouth every morning. 4 Active ascorbic acid, vitamin C, (VITAMIN C) 250 MG tablet Take 1 tablet by mouth every morning. 4 Active atorvastatin (LIPITOR) 10 MG tablet Take 1 tablet by mouth every morning. 4 Active VITAMIN B-12 1000 MCG tablet Take 1 tablet by mouth every morning. 4 Active finasteride (PROSCAR) 5 mg tablet Take 1 tablet by mouth every morning. 4 Active folic acid (FOLVITE) 1 MG tablet Take 1 tablet by mouth every morning. 4 Active LORazepam (ATIVAN) 0.5 MG tablet TAKE ONE TABLET BY MOUTH TWICE A DAY NEEDED FOR SLEEP FOR 7 DAYS; MAX DAILY DOSE: 1MG. 4 Active omeprazole (PRILOSEC) 40 MG capsule 1 capsule 30 minutes before morning meal Orally Once a day for 30 day(s) 4 Active sertraline (ZOLOFT) 25 MG tablet Take 1 tablet by mouth every morning. 4 Active albuterol 90 mcg/actuation inhaler [The details of the medication are not available because there are pending changes by a home health clinician.] 8 g 4 Active Additional Information Patient not taking.Reported on 03/26/2025 inhaler spacing device (AEROCHAMBER,B REATHERITE) Spcr [The details of the medication are not available because there are pending changes by a home health clinician.] 1 each 4 Active Additional Information Patient not taking.Reported on 03/26/2025 cholecalcifero l (VITAMIN D3) 2,000 unit capsule Take 2,000 Units by mouth daily. 5 Active polyethylene glycol (MIRALAX) 17 gram packet Take 17 g by mouth daily. 5 Active ergocalciferol , vitamin D2, 50 mcg (2,000 unit) Cap Take 1 capsule by mouth every morning. 4 03/26/20 25 Discontin ued(No longer taking) Active Problems No known active problems Encounters Date Type Department Care Team Description 04/08/2025 9:00 AM EDT Home Care Visit [facility] [address] [place] [phone] Stefania Tan, OT OT HOME VISIT 04/07/2025 9:15 AM EDT Home Care Visit [facility] [address] [place] [phone] Veena Nicole, PT PT HOME VISIT 04/06/2025 10:00 AM EDT Home Care Visit [facility] [address] [place] [phone] Stefania Tan, OT OT HOME VISIT 04/06/2025 Home Care Visit [facility] [address] [place] [phone] Stefania Tan, OT TELEPHONE ENCOUNTER 04/03/2025 9:30 AM EDT Home Care Visit [facility] [address] [place] [phone] Echo Aquino I, PT PT HOME VISIT 04/01/2025 12:30 PM EDT Home Care Visit [facility] [address] [place] [phone] Stefania Tan, OT OT HOME VISIT 03/31/2025 10:00 AM EDT Home Care Visit [facility] [address] [place] [address] Echo Aquino I, PT PT HOME VISIT 03/31/2025 Episode Documentatio n Update [facility] [address] [place] [phone] Medina Mclaughlin 03/30/2025 1:30 PM EDT Home Care Visit [facility] [address] [place] [address] Stefania Tan, OT OT EVALUATION 03/27/2025 Home Care Visit [facility] [address] [place] [phone] Stefania Tan, OT TELEPHONE ENCOUNTER 03/27/2025 Home Care Visit [facility] [address] [place] [address] Stefania Tan, OT TELEPHONE ENCOUNTER 03/26/2025 12:30 PM EDT Home Care Visit [facility] [address] [place] [address] Echo Aquino I, PT PT OASIS START OF CARE (SOC) 03/26/2025 Plan of Care Documentation [facility] [address] [place] [address] 03/24/2025 Orders Only [facility] [address] [place] [address] Homehealth, Interface MD Melissa 03/16/2025 Orders Only [facility] [address] [place] [phone] Homehealth, Interface ProviderMD from Last 3 Months [...] Tobacco: Never Tobacco Cessation:Counseling Given: Not Answered Home Health Assessment: Transportation Answer Date Recorded [...] F) 04/07/2025 9:47 AM EDT Respiratory Rate 16 04/06/2025 10:30 AM EDT Oxygen Saturation 97% 04/07/2025 9:47 AM EDT Inhaled Oxygen Concentration - - Weight - - Height - - Body Mass Index - - Plan of Treatment Upcoming Encounters Date Type Department Care Team (Late st Contact Info) Description 04/09/2025 9:30 AM EDT Home Care Visit [facility] [address] [place], [place] [phone] Veena Nicole, PT [address] [place] [address] 04/13/2025 1:30 PM EDT Home Care Visit [facility] [address], [place] [phone] Stefania Tan, OT [address] [place] [address] [email or web address] 04/14/2025 9:30 AM EDT Home Care Visit [facility] [address] [place] [phone] Veena Nicole, PT [address] [place] [address] 04/20/2025 12:45 AM EDT Home Care Visit [facility] [address] [place] [phone] Stefania Tan, OT [address] [place] [address] [email or web address] 04/21/2025 12:45 AM EDT Appointment [facility] [address] [place] [phone] Veena Nicole, PT [address] [place] [address] Health Maintenance Due Date Last Done Comments DEPRESSION SCREENING 1954 ZOSTER VACCINES (1 of 2) 1992 RSV VACCINE (1 - 1-dose 75+ series) 2017 PNEUMOCOCCAL VACCINES (50+ years) (2 of 2 - PPSV23) 07/28/2020 07/28/2019 INFLUENZA VACCINE (#1) 2025 , 05/10/2022, 05/03/2021, Additional history exists COVID-19 VACCINE ( season) 2025 04/30/2023, 06/06/2022, 07/04/2021, Additional history [...] topic Medical Devices Not on file [place] [address] [place] [address] MEDICARE HMO REPLACEMENT [facility] [place] MEDICARE HMO RE[place]AC[place] [address] [place] [address] MEDICARE HMO REPLACEMENT [facility] MEDICARE HMO REPLACEMENT [facility] [place] MEDICARE HMO RE[place]ACEMENT [address] [place] [address] MEDICARE HMO REPLACEMENT Care Teams Electrical Accessories Ii Assembler Relationship Specialty Start Date End Date Rocael Reeves PA [address] [place] [phone] PCP - General Physician Run Lead 03/03/24 Additional Source Comments The information contained in this document represents components of the legal health record. It is not the complete legal health record.[facility]
--- OUTSIDE RECORDS SUMMARY | 2025-04-08 16:27 | XMS_ITS | Encounter Summary ---
Author Organization [facility] Address [address] [facility] [address] [place] [phone] Phone Care Team Providers Care Manager Of Case Name Role Phone Rocael Reeves Primary Care Provider + Reason for Visit * Auth/Cert (Routine) Specialty Diagnoses / Procedures Referred By Sherry t Referred To Contact Referral ID Status Reason Start Date Expiration Date Visits Re quested Visits Authorized [id number] 1 1 Encounter Details Date Type Department Care Team (Late Contact Info) Description 04/06/2025 Home Care Visit [facility] [address] [place] [phone] Stefania Tan, OT [address] [place] [address] [email or web address] TELEPHONE ENCOUNTER Social History Tobacco Use Types Packs/Day Years [...] 9:30 AM EDT Home [facility] Visit [facility] [address] [place] [phone] Veena Nicole, PT [address] [place] [address] [email or web address] 04/13/2025 1:30 PM EDT Home Care Visit [facility] [address] [place] [phone] BiStefania Jefferson, OT [address] [place] [address] [email or web address] 04/14/2025 9:30 AM EDT Home Care Visit [facility] [address] [place] [phone] Veena Nicole, PT [address] [place] [address] [email or web address] 04/20/2025 12:45 AM EDT Home Care Visit [facility] [address] [place] [phone] BiStefania Jefferson, OT [address] [place] [address] [email or web address] 04/21/2025 12:45 AM EDT Appointment [facility] [address] [place] [phone] Veena Nicole, PT [address] [place] [address] [email or web address] documented as of this encounter Visit Diagnoses Not on filedocumented in this encounter Care Teams Manager Of Case Relationship Specialty Start Date End Date Rocael Reeves PA [address] [place] [id number] PCP - General Physician Road Inspector 03/03/24 documented as of this encounter Additional Source Comments The information contained in this document represents components of the legal health record. It is not the complete legal health record.[facility]
== END 2025-04-08 15:11 | disposition home or self-care (01) ==
LOC: HO.HMCH 13:55
PROVIDERS: PCP Physician Assistant; Visit Provider Physician Assistant
DX: Z09 Encounter for follow-up examination after completed treatment for conditions other than malignant neoplasm (principal); M54.6 Pain in thoracic spine; E86.0 Dehydration; F09 Unspecified mental disorder due to known physiological condition; R00.0 Tachycardia, unspecified

== ENCOUNTER → 2025-04-08 13:54 | Outpatient (BNVA) | payer MEDICARE, SELFPAY | PROVIDERS: PCP Physician Assistant; Visit Provider Physician Assistant | DX: Z09 Encounter for follow-up examination after completed treatment for conditions other than malignant neoplasm (principal); M54.6 Pain in thoracic spine; E86.0 Dehydration; F09 Unspecified mental disorder due to known physiological condition; R00.0 Tachycardia, unspecified | CPT/HCPCS: 99212 ==

== ENCOUNTER 2025-04-30 10:22 | Outpatient (AMB) | payer MEDICARE, SELFPAY ==
[2025-04-30 11:06] VITALS: BP 120/72; PULSE 96; O2SAT 98
--- NOTE | 2025-04-30 11:06 | A.OFFPC_ITS ---
Vital Signs 04/30/25 11:06 Height 5 ft 6 in Weight 124 lb 2 oz BMI 20.0 BP 120/72 Blood Pressure Location Lt brachial Position Sitting Pulse 96 Pulse Source Pulse Oximeter Pulse Oximetry (%) 98 Oxygen Delivery Method Room Air Intake Visit Reasons: f/u dehydation ( okay to double book) Press Operator Meat Required: No Accompanied by: Self / Same As Patient Allergies lisinopril Allergy (Severe, Verified 04/30/25 11:38) lip swelling hydrochlorothiazide Adverse Reaction (Severe, Verified 04/30/25 11:38) dizziness/ hyponatremia Medication List - Last Reconciled 04/30/25 by Rocael Reeves PA-C amlodipine (Norvasc) 5 mg PO DAILY 90 days ascorbic acid (vitamin C) 250 mg PO DAILY 90 days atorvastatin (Lipitor) 10 mg PO DAILY cholecalciferol (vitamin D3) 50 mcg PO DAILY 90 days cyclobenzaprine 10 mg PO BEDTIME 30 days finasteride (Proscar) 5 mg PO DAILY folic acid 1 mg PO DAILY lorazepam 0.5 mg PO BID PRN 10 days metoprolol succinate ER 25 mg PO DAILY 30 days naproxen 500 mg PO BID PRN omeprazole 40 mg PO DAILY@0630 polyethylene glycol 3350 (Miralax) 17 grams PO DAILY sertraline 25 mg PO DAILY 90 days Tobacco use date assessed: 04/30/25 Fall risk assessment: 1 Fall in past year Last assessed Fall Risk: 04/30/25 Dental Screening Dental Screen Date: 04/30/25 Did you have a dental visit in the last 12 months?: Yes Did you have a dental problem in the last 6 months where you did not have access to dental care?: No Was dental information given to patient?: Patient has dentist HPI f/u dehydation ( okay to double book) HPI Details Patient is an 84-year-old male here today for a follow-up visit. Patient had recent hospitalization in March for acute ileus in the setting of also being dehydrated. He was found out through his hospitalization to have elevated heart rates which we thought was related to both his dehydration and pa in in his thoracic spine. Today's heart rates much better. He has not started metoprolol at this time. His pain is better has been using Tylenol and muscle relaxer. He has been hydrating and feels much better.. Patient will be starting outpatient physical therapy for his thoracic spine pain in his lower extremity weakness/balance issues. Mild cognitive disorder- patient's is interested in having patient evaluated by a gerontologist in [place] thus referral has been placed. [facility] Medical History History of colon cancer Left sided abdominal pain History of urinary frequency Adenocarcinoma of cecum HTN (hypertension) Anemia Hyperlipidemia Surgical History S/P right colectomy History of esophagogastroduodenoscopy (EGD) History of colon resection (~2020) Hx of eye surgery H/O colonoscopy History of left inguinal hernia repair (~02/2018) Family History Father No problems noted. Mother No problems noted. Brother Cardiovascular disease Diabetes Social History Household Members: Spouse Household Members Other:: Housing: Apartment Are you a primary resident care coordinator to a significant other at home: No Do you presently have visiting nurse or other home services: No (would like some) Alcohol intake: current Alcohol intake frequency: 3 or more drinks per day Alcohol type: wine Patient Tobacco Use Status: Never used Tobacco e-Cigarette/Vaping Use: Never Used Second Hand Smoke Exposure: No Advance Directives Date on File: 04/12/21 service: No Current occupational status: retired Cognitive needs: No Hearing needs: No Vision needs: Yes (glasses) Questionnaire PHQ-9 Over the last 2 weeks, how often have you been bothered by any of the following problems? 1. Little interest or pleasure in doing things: not at all 2. Feeling down, depressed, or hopeless: not at all 3. Trouble falling or staying asleep, or sleeping too much: not at all 4. Feeling tired or having little energy: not at all 5. Poor appetite or overeating: not at all 6. Feeling bad about yourself - or that you are a failure or have let yourself or your family down: not at all 7. Trouble concentrating on things, such as reading the newspaper or watching television: not at all 8. Moving or speaking so slowly that other people could have noticed. Or the opposite - being so fidgety or restless that you have been moving around a lot more than usual: not at all 9. Thoughts that you would be better off or of hurting yourself in some way: not at all Total score: 0 Depression Screening Interpretation: Negative Depression Screening Done: Yes 75866 - PHQ-9 Billing: Yes Source: Developed by Drs. Joseph Riggins, Cheryl Johnson, Uche Isabel and colleagues, with an educational aurelio from [employer]. Thrive Questionnaire Date Thrive assessed: 07/28/24 I am a: Patient What is your living situation today?: I have a steady place to live Within the past 12 months, did the food you bought not last and you didn't have the money to get more?: Never true Within the past 12 months, did you worry whether your food would run out before you got money to buy more?: Never true Do you have trouble paying for medicines?: No Do you have trouble getting transportation to medical appointments?: No Do you have trouble paying your heating and electricity bill?: No Do you have trouble taking care of your child, family member or friend?: No Do you have trouble with day-to-day activities such as bathing, preparing meals, shopping, managing finances, etc.?: No Are you currently unemployed and looking for a job?: No Are you interested in more education?: No Please select the resources that you would like help with: None Currently or been in a relationship where the following occur: I choose not to answer THRIVE Score: 0 AUDIT C Alcohol Use Questionnaire (AUDIT-C) 1. How often do you have a drink containing alcohol?: 2-3 times a week 2. How many drinks containing alcohol do you have on a typical day when you are drinking?: 1 or 2 3. How often do you have six or more drinks on one occasion?: Never Total Score: 3 KEN-7 AMB Questionnaire KEN-7 Date KEN - 7 assessed: 03/19/25 Source: Developed by Drs. Joseph Riggins, Cheryl Johnson, Uche Isabel and colleagues, with an educational aurelio from [employer]. Review of Systems Const Denies headache(s) Eyes Denies loss of vision ENT Denies vertigo, Denies dizziness, Denies headache(s) and Denies sore throat Card Denies chest pain, Denies leg edema and Denies lightheadedness Resp Denies cough, Denies hemoptysis and Denies wheezing GI Denies abdominal pain, Denies melena, Denies constipation, Denies diarrhea and Denies vomiting Denies dysuria, Denies urinary frequency and Denies urinary urgency Musc Denies arthralgias, Denies joint swelling, Denies numbness and Denies tingling Neuro Denies Abnormal speech present, Denies behavioral changes, Denies vertigo, Denies dizziness, Denies headache(s), Denies loss of vision, Denies memory loss, Denies numbness and Denies tingling Psych Denies anxiety, Denies behavioral changes, Denies depression, Denies memory loss and Denies panic attacks Alek/Lymph Denies easy bleeding and Denies easy bruising Aller/Immun Denies wheezing Physical exam (Primary Care) Vital Signs: Last Vital Signs Pulse 96 04/30/25 11:06 BP 120/72 04/30/25 11:06 Pulse Ox 98 04/30/25 11:06 Oxygen Delivery Method Room Air 04/30/25 11:06 BMI result Body Mass Index 20.0 Tobacco/Smoking Status: Tobacco use Status Tobacco use date assessed 04/30/25 04/30/25 11:12 Patient Tobacco Use Status Never used Tobacco 04/30/25 11:12 e-Cigarette/Vaping Use Never Used 04/30/25 11:12 PHQ-9: PHQ-9 Score PHQ-9: Total score 0 04/30/25 11:40 Depression Screening Interpretation: Negative Thrive Assessment: Date of Thrive Assessment Date Thrive assessed 07/28/24 04/30/25 11:12 Currently or been in a relationship where the following occur: I choose not to answer Const General: healthy appearing, no acute distress, alert and awake Nutritional Appearance: well nourished Orientation/consciousness: oriented to person, oriented to place and oriented to time HENMT Ears: TM's normal bilaterally General nose exam: Normal nasal mucous membranes and turbinates present Eyes Conjunctivae: conjunctivae normal Sclerae: sclerae normal Pupils: Equal, round and reactive pupils present Neck Neck: Yes no lymphadenopathy and Yes no JVD Thyroid: Thyroid normal Carotids: no bruits Resp Effort & Inspection: normal respiratory effort and not tachypneic Auscultation: no crackles, no rales, no rhonchi and no wheezes Cardio Rate: regular rate Rhythm: regular rhythm Heart sounds: no murmurs and normal S1 and S2 GI Palpation (GI): Soft to palpation, nontender, no hepatomegaly and no splenomegaly Auscultation: normal bowel sounds Skin General skin exam: no rashes or lesions noted and dry skin Neuro General: oriented to person, oriented to place and oriented to time Cranial nerves: Yes Equal, round and reactive pupils present Speech: No Abnormal speech present Gait exam (Neuro): Normal gait present Motor exam (neuro): no tremor noted Extrem Right upper extremity: full ROM Left upper extremity: full ROM Right lower extremity: full ROM; no edema Left lower extremity: full ROM; no edema Psych Mental Status: mental status grossly normal Speech and movement: Normal speech and movement present Affect: normal affect Attitude: cooperative Thought process: Normal thought process present Coding Level of Care Code Est Pt Level 4 (50249) Diagnoses Dehydration, mild E86.0 Thoracic spine pain M54.6 Mild cognitive disorder F09 Tachycardia R00.0 Additional Codes PHQ-9 - 17188 - PHQ-9 Billing: Yes ([id number]) Assessment & Plan Assessment & Plan (1) Dehydration, mild: Code(s): E86.0 - Dehydration Category: Medical Plan: Patient's dehydration seems to have resolved with oral rehydration. (2) Thoracic spine pain: Code(s): M54.6 - Pain in thoracic spine Category: Medical Plan: The patient will continue using cyclobenzaprine at night for muscle spasms,. Will be starting outpatient physical therapy (3) Mild cognitive disorder: Code(s): F09 - Unspecified mental disorder due to known physiological condition Category: Medical Plan: Patient's concerned about patient's cognitive decline. They are interested in seeing a geriatric Specialists for further assessment. (4) Tachycardia: Code(s): R00.0 - Tachycardia, unspecified Category: Medical Plan: Patient's heart rate still slightly elevated though has improved from previous. Has not started metoprolol at this time. It was thought that his heart rates were elevated due to dehydration and pain. Advised on purchasing a pulse ox to do home heart rate monitoring and if heart rates above 90 consistently at home will consider restarting beta-eyad. Orders: Orders Microalbumin, Random (w Creat) Today I10 - Essential (primary) hypertension Complete Blood Count no Diff Today I10 - Essential (primary) hypertension Lipid Panel Today E78.2 - Mixed hyperlipidemia Comprehensive Daniel. Panel Fast Today I10 - Essential (primary) hypertension Prostate Specific Antigen Scr Today E78.2 - Mixed hyperlipidemia, Z12.5 - Encounter for screening for malignant neoplasm of prostate Referrals Geriatrics Referral F09 - Unspecified mental disorder due to known physiological condition Medications: Changed From naproxen 500 mg PO BID PRN pain To naproxen 500 mg PO BID PRN 28 tabs 0RF pain 14 days Refilled cyclobenzaprine 10 mg PO BEDTIME 30 tabs 1RF muscle spasm 30 days M54.6 - Pain in thoracic spine On Hold metoprolol succinate ER Hold Comment: Doctor's Order 25 mg PO DAILY 30 days 30 tabs 1RF R00.0 - Tachycardia, unspecified
--- OUTSIDE RECORDS SUMMARY | 2025-04-30 12:49 | XMS_ITS | Clinical Summary ---
Author Organization [facility] Address [address] [place], [place] [id number] Phone Care Team Providers Care Label Pinker Name Role Phone Rocael Reeves Primary Care [...] not taking.Reported on 03/26/2025 inhaler spacing device (AEROCHAMBER,BR EATHERITE) Spcr [The details of the medication are not available because there are pending changes by a home health clinician.] 1 each 4 Active Additional Information Patient not taking.Reported on 03/26/2025 cholecalciferol (VITAMIN D3) 2,000 unit capsule Take 2,000 Units by mouth daily. 5 Active polyethylene glycol (MIRALAX) 17 gram packet Take 17 g by mouth daily. 5 Active Active Problems No known active problems Encounters Date Type Department Care Team Description 04/23/2025 Transcribe Orders [facility] [address] [place] [id number] Rocael Reeves PA Encounter for rehabilitation (Primary Dx) 04/20/2025 10:15 AM EDT Home [facility] Visit [facility] [address] [place] [phone] Veena Nicole, PT PT OASIS DISCHARGE VISIT 04/14/2025 9:30 AM EDT Home [facility] [address] [place] [address] Veena Nicole, PT PT HOME VISIT 04/13/2025 1:30 PM EDT Home [facility] Visit [facility] [address] [place] [phone] Stefania Tan, OT OT DISCIPLINE DISCHARGE VISIT 04/09/2025 9:30 AM EDT [facility] [address] [place] [address] Veena Nicole, PT PT HOME VISIT 04/09/2025 Home Care Visit [facility] [address] [place] [address] Veena Nicole, PT CASE COMMUNICATION 04/08/2025 9:00 AM EDT [facility] [address] [place] [address] Stefania Tan, OT OT HOME VISIT 04/07/2025 9:15 AM EDT [facility] [address] [place] [address] Veena Nicole, PT PT HOME VISIT 04/06/2025 10:00 AM EDT Home [facility] Visit [facility] [address], [place] [phone] Stefania Tan, OT OT HOME VISIT 04/06/2025 Home Care Visit [facility] [address], [place] [phone] Stefania Tan, OT TELEPHONE ENCOUNTER 04/03/2025 9:30 AM EDT Home Care Visit [facility] [address] [place] [address] Echo Aquino I, PT PT HOME VISIT 04/01/2025 12:30 PM EDT Home Care Visit [facility] [address] [place] [address] Stefania Tan, OT OT HOME VISIT 03/31/2025 10:00 AM EDT Home [facility] Visit [facility] [address], [place] [phone] Echo Aquino I, PT PT HOME VISIT 03/31/2025 Episode Documentation Update [facility] [address], [place] [phone] Medina Mclaughlin 03/30/2025 1:30 PM EDT Home Care Visit [facility] [address], [place] [phone] Stefania Tan, OT OT EVALUATION 03/27/2025 Home Care Visit [facility] [address], [place] [phone] Stefania Tan, OT TELEPHONE ENCOUNTER 03/27/2025 Home Care Visit [facility] [address], [place] [phone] Stefania Tan, OT TELEPHONE ENCOUNTER 03/26/2025 12:30 PM EDT Home Care Visit [facility] [address] [place] [phone] Echo Aquino I, PT PT OAYOVANNY START OF CARE (SOC) 03/26/2025 Plan of Care Documentation [facility] [address] [place] [phone] 03/24/2025 Orders Only [facility] [address], [place] [phone] Homehealth, Interface ProviderMD 03/16/2025 Orders Only [facility] [address] [place] [phone] Homehealth, Interface ProviderMD from Last 3 Months [...] Date Recorded Lack of Transportation (Medical) No 04/20/2025 Lack of Transportation (Non-Medical) No 04/20/2025 Patient Unable or Declines to Respond No 04/20/2025 Education Answer Date Recorded Are you interested [...] Sign Reading Time Taken Comments Blood Pressure 110/62 04/20/2025 10:30 AM EDT Pulse 108 04/20/2025 10:30 AM EDT Temperature 36.6 C (97.8 F) 04/20/2025 10:30 AM EDT Respiratory Rate 16 04/13/2025 1:52 PM EDT Oxygen Saturation 98% 04/20/2025 10:30 AM EDT Inhaled Oxygen Concentration - - Weight - - Height - - Body Mass Index - - Plan of Treatment Upcoming Encounters Date Type Department Care Team (Late st Contact Info) Description 06/17/2025 9:15 AM EST Office Visit [address] [address] Rocael Reeves PA [address] [place] [phone] Aruna Will, PT [address] [place] [address] [email or web address] 06/23/2025 9:15 AM EST Office Visit [address] [address] [place] [address] [place] [phone] Aruna Will, PT [address] [place] [address] [email or web address] 06/26/2025 9:30 AM EST Office Visit [address] [address] Rocael Reeves PA [address] [place] [phone] Sindi Dao, METAL PATTERNMAKER APPRENTICE [address] [place] [address] 07/01/2025 10:00 AM EST Office Visit [address] [address] Rocael Reeves PA [address] [place] [phone] Aruna Will, PT [address] [place] [address] [email or web address] 07/03/2025 9:30 AM EST Office Visit [address] [address] Rocael Reeves PA [address] [place] [phone] Sindi Dao, METAL PATTERNMAKER APPRENTICE [address] [place] [address] [email or web address] 07/07/2025 9:15 AM EST Office Visit [address] [address] Rocael Reeves PA [address] [place] [phone] Aruna Will, PT [address] [place] [address] [email or web address] 07/14/2025 9:30 AM EST Office Visit [address] [address] Rocael Reeves PA [address] [place] [phone] Sindi Dao, METAL PATTERNMAKER APPRENTICE [address] [place] [address] [email or web address] 07/20/2025 9:15 AM EST Office Visit [address] [address] Rocael Reeves PA [address] [place] [phone] MiriamJustoSandersonAruna marcos, PT [address] [place] [address] [email or web address] Maintenance Due Date Last Done Comments DEPRESSION SCREENING 1954 ZOSTER VACCINES (1 of 2) 1992 RSV VACCINE (1 - 1-dose 75+ series) 2017 PNEUMOCOCCAL VACCINES (50+ years) (2 of 2 - PPSV23) 07/28/2020 07/28/2019 INFLUENZA VACCINE (#1) 2025 , 05/10/2022, 05/03/2021, Additional history exists COVID-19 VACCINE (2024- season) 2025 04/30/2023, 06/06/2022, 07/04/2021, Additional history [...] topic Medical Devices Not on file [place] [address] [address] [place] [address] [address] [place] [place] [address] [address] [place] [address] [address] [place] [address] [place] [address] MEDICARE HMO REPLACEMENT [employer] [place] MEDICARE HMO REPLACEMENT Care Teams Label Pinker Relationship Specialty Start Date End Date Rocael Reeves PA [address] [place] [address] PCP - General Physician Investigator Welfare 03/03/24 Additional Source Comments The information contained in this document represents components of the legal health record. It is not the complete legal health record.[facility]
== END 2025-04-30 12:00 | disposition home or self-care (01) ==
LOC: HO.HMCH 10:22
PROVIDERS: PCP Physician Assistant; Visit Provider Physician Assistant
DX: E86.0 Dehydration (principal); M54.6 Pain in thoracic spine; F09 Unspecified mental disorder due to known physiological condition; R00.0 Tachycardia, unspecified

== ENCOUNTER → 2025-04-30 10:22 | Outpatient (BNVA) | payer MEDICARE, SELFPAY | PROVIDERS: PCP Physician Assistant; Visit Provider Physician Assistant | DX: E86.0 Dehydration (principal); M54.6 Pain in thoracic spine; F09 Unspecified mental disorder due to known physiological condition; R00.0 Tachycardia, unspecified; E78.2 Mixed hyperlipidemia | CPT/HCPCS: 96127; 99212 ==